=== PATIENT | female | born 1955 | race Caucasian/White ===

== ENCOUNTER 2022-01-03 22:58 | Emergency (ER) | payer MEDICARE, BC, OTHER, SELFPAY ==
[2022-01-03 22:59] VITALS: BP 165/85; PULSE 68; RESP 16; TEMP 35.6; O2SAT 94; BMI 35.1
--- NOTE | 2022-01-03 23:26 | EX.ED.UPPERE ---
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 Today has redness and swelling. Denies any fall. 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 She is never had cellulitis. 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 She denies any fever. She is on aspirin but no other blood thinners. She has had blood clots in her legs and her left arm before. She is also on daily Keflex for prophylaxis of recurrent UTIs. She only takes that there once a day. Prior similar symptoms: Yes Recent Illness/Hospitalization: No PFSH PFSH Home Medications Ca 600 mg-D3 800 unit-magnes 40 hj-oaaq-lse-zuly-boron chewable tablet (Caltrate 600-D Plus Minerals) 1 ea PO DAILY 04/18/14 [History Last Taken Unknown] aspirin 81 mg tablet,delayed release 325 mg PO DAILY@0800 04/18/14 [History Last Taken Unknown] atenolol 50 mg tablet 50 mg PO DAILY 04/18/14 [History Last Taken 01/02/16 07:15] lisinopril 5 mg tablet 5 mg PO DAILY 04/18/14 [History Last Taken 01/02/16 07:15] oxycodone 15 mg tablet,crush resistant,extended release 12 hr (OxyContin) 15 mg PO Q4H PRN Pain 04/18/14 [History Last Taken 01/02/16 07:15] simvastatin 20 mg tablet 20 mg PO QHS 04/18/14 [History Last Taken Unknown] venlafaxine 75 mg tablet 75 mg PO BID 04/18/14 [History Last Taken Unknown] Equate Sleep Aid 50 mg PO QHS PRN PRN Sleep 12/17/15 [History Last Taken Unknown] Morphine [Morphine Ir] 30 mg PO TID 12/17/15 [History Last Taken 01/02/16 07:15] cephalexin 250 mg capsule (Keflex) 250 mg PO DAILY 12/17/15 [History Last Taken Unknown] clonidine HCl 0.2 mg tablet 0.2 mg PO DAILY 12/17/15 [History Last Taken 01/02/16 07:15] cranberry extract 200 mg capsule 150 mg PO DAILY 12/17/15 [History Last Taken Unknown] krill eup-rq-1-uzg-odk-pkktkhadnzibk 300 mg-90 mg-24 mg-50 mg capsule (krill oil) 1 ea PO DAILY 12/17/15 [History Last Taken Unknown] multivitamin with folic acid 400 mcg tablet (Thera) 1 tab PO DAILY 12/17/15 [History Last Taken Unknown] pantoprazole 40 mg tablet,delayed release 40 mg PO DAILY 12/17/15 [History Last Taken 01/02/16 07:15] cephalexin 500 mg capsule 500 mg PO Q6 ##40 01/15/16 [Rx Last Taken Unknown] Allergy/AdvReac Type Severity Reaction Status Date / Time codeine Allergy Other Verified 01/15/16 16:39 lorazepam [From Ativan] Allergy Unknown Verified 01/15/16 16:39 amoxicillin [Amoxicillin] AdvReac Nausea Verified 01/15/16 16:39 etodolac [From Lodine] AdvReac Diarrhea Verified 01/15/16 16:39 fluticasone propionate AdvReac Other Verified 01/15/16 16:39 [From Flovent Diskus] lansoprazole [From Prevacid] AdvReac Unknown Verified 01/15/16 16:39 lubiprostone AdvReac Nausea Verified 01/15/16 16:39 misoprostol [From Cytotec] AdvReac Diarrhea Verified 01/15/16 16:39 nitrofurantoin AdvReac Nausea Verified 01/15/16 16:39 [From Macrobid] nitrofurantoin AdvReac Nausea Verified 01/15/16 16:39 macrocrystalline [From Macrobid] topiramate [From Topamax] AdvReac Nausea Verified 01/15/16 16:39 Social History Smoking Status: Never smoker ROS ROS ED ROS Narrative Lip swelling that resolved with 1 Benadryl. Left arm redness and swelling. Review of Systems ROS Unobtainable: Denies due to encephalopathy Constitutional Constitutional ED: Denies chills or fever(s) Eyes Eyes: Denies blurry vision ENT ENT ED: Denies ear pain Cardiovascular Cardiovascular: Denies chest pain Respiratory/Chest Respiratory/Chest: Denies cough or dyspnea Gastrointestinal Gastrointestinal: Denies abdominal pain Genitourinary Genitourinary ED: Denies dysuria or hematuria Musculoskeletal Musculoskeletal: Denies back pain Integumentary Denies abscess Neurologic Neurologic: Denies headache(s) Psychiatric Psychiatric: Denies anxiety Endocrine Endocrinology: Denies cold intolerance Hematologic/Lymphatic Hematologic/Lymphatic: Denies easy bleeding Allergic/Immunologic Allergic/Immunologic ED: Denies mouth swelling or tongue swelling EXAM Physical Exam Narrative Exam Narrative: Well-appearing 66-year-old female. Vital signs are stable afebrile. Pulse ox 94% on room air no signs hypoxia. H EENT exam normal. Lip and tongue not swollen. No trouble swallowing or breathing. Neck nontender. Lungs clear to auscultation. Heart regular rhythm rate about 70 no murmur. Abdomen soft nontender. Moving all 4 extremities. Her left arm along the bicep is red mildly tender like a cellulitis. She has normal range of motion to her left shoulder she has had prior anterior left shoulder surgery with a well-healed scar. There is no edema. No lymphadenopathy of the shoulder. She is able to flex and extend her left elbow. There is no signs of any biceps tendon rupture. Her forearm is normal. Nontender. Nonswollen. Normal pulse. 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 Her left upper arm is swollen compared to the right and red compared to the right. Right is normal. Exam is consistent with either cellulitis or DVT. I explained to the patient and family that ultrasounds not available at this time for this. Const Vital Signs: 01/03/22 22:59 01/03/22 22:59 Temperature 96.0 F L 96.0 F L Temperature Source Temporal Temporal Pulse Rate 68 68 Respiratory Rate 16 16 Blood Pressure 165/85 H 165/85 H Blood Pressure Mean 111 111 Pulse Ox 94 94 Oxygen Delivery Method Room Air Room Air Positive well nourished, well developed and obese; Negative for cachectic, contractures or unkempt General Appearance ED: well developed and NAD; Negative for unkempt, cachectic, contractures, cyanotic or diaphoretic Nutritional Appearance: obese; Negative for cachectic HEENT Reports moist mucous membranes normocephalic and atraumatic; Negative for trauma or tenderness Eyes PERRL and EOMs intact bilaterally General Eye ED: Negative for other Neck full ROM and supple General: Negative for tenderness Lymph Lymphatic: Negative for other Chest Wall inspection of chest normal and palpation of chest normal Chest: Negative for other Resp normal respiratory effort and clear to auscultation bilaterally Effort and Inspection: Negative for pain with movement Auscultation: Negative for rales, rhonchi or wheezes Cardio regular rate, regular rhythm, S1 normal heart sound, S2 normal heart sound and no murmurs Rate: Negative for bradycardia Rhythm: Negative for abnormal rhythm GI non-tender, non-distended and no masses Inspection: Negative for abdominal distention Auscultation: normoactive bowel sounds Palpation: soft; Negative for tender or guarding Back/Spine no CVA tenderness General Back: Negative for CVA tenderness Cervical Spine: Negative for cervical spine tenderness Thoracic Spine / Upper Back: Negative for thoracic spinal tenderness Lumbar Spine / Lower Back: Negative for lumbar spinal tenderness or straight leg raise positive - left Extremity full ROM; Negative for normal to inspection Extremity Narrative: Left upper arm mildly red. Minimally tender on the skin. Consistent with cellulitis. Edematous on the upper arm only. Forearm is normal. With normal radial pulse. Normal briquette machine operator helper strength. Normal range of motion of the shoulder. General Extremety ED: Yes edema General Extremity: edema Neuro oriented x3, moves all extremities and no focal motor deficits Sensorium / Orientation: alert, oriented to person, oriented to place and oriented to time; Negative for orientation impaired, lethargic or stuporous Motor Exam: strength 5/5 throughout and muscle tone normal throughout; Negative for general weakness Psych mental status grossly normal Appearance: Negative for unkempt Attitude: No agitated Mood & Affect: Negative for depressed, anxious or tearful Skin General Skin Exam: Negative for petechiae Lesions: no lesions Rashes: No no rashes and rashes noted MDM MDM MDM Narrative Medical decision making narrative: 66-year-old female has redness and swelling in her left upper arm consistent with cellulitis but she is also had a history of DVTs before and it could be that. She is already on Keflex once a day for recurrent UTIs that will be started as 4 times a day. I will order an outpatient noninvasive study of her left upper extremity for tomorrow morning because the not available at this time. She will return and have the noninvasive study done tomorrow morning. If it is a DVT we will stop the antibiotic and she will be started on Eliquis which I gave her first dose tonight 10 mg p.o. If its not a DVT she will continue on the Keflex 4 times a day for 10 days which she already has at home and follow-up with her doctor. Discharge Plan Triage Chief Complaint: Upper Extremity Injury ED Provider: Cristóbal Joel Dx/Rx/DC Orders Clinical Impression: Cellulitis, DVT (deep venous thrombosis) Instructions: Cellulitis Dc, ED Deep Vein Thrombosis (DVT) Prescriptions: No Action venlafaxine 75 MG tablet 75 mg PO BID aspirin 81 MG tablet 325 mg PO DAILY@0800 simvastatin 20 MG tablet 20 mg PO QHS lisinopril 5 MG tablet 5 mg PO DAILY atenolol 50 MG tablet 50 mg PO DAILY [id number]-fhji-zhm-tpje-boron [Caltrate 600-D Plus Minerals] 1 EACH tablet,chewable 1 ea PO DAILY oxycodone [OxyContin] 15 MG tablet 15 mg PO Q4H PRN (Reason: Pain) cephalexin [Keflex] 250 MG capsule 250 mg PO DAILY clonidine HCl 0.2 MG tablet 0.2 mg PO DAILY pantoprazole 40 MG tablet 40 mg PO DAILY cranberry extract 200 MG capsule 150 mg PO DAILY multivitamin with folic acid [Thera] 1 TABLET tablet 1 tab PO DAILY [id number]-qrang-1-gdn-szx-yfaowm [krill oil] 1 EACH capsule 1 ea PO DAILY Equate Sleep Aid 50 mg PO QHS PRN PRN (Reason: Sleep) Morphine [Morphine Ir] 30 MG tablet 30 mg PO TID cephalexin 500 MG capsule 500 mg PO Q6 Qty: 40 0RF Other Ambulatory Orders: Venous Duplex US, Unilateral (Stat) Facility: [facility] - Location: [facility] Ordered By: Dr. Cristóbal Joel Primary Care Provider: Smiley Collins Referrals: Smiley Collins MD [Primary Care Provider] - 3-5 Days if not improving Activity Restrictions/Additional Instructions: This is either cellulitis skin infection of your arm which we will treat with your home antibiotic Keflex but you need to take it 4 times a day for 10 days. I have ordered an outpatient ultrasound which will be done tomorrow. If they do not call you by 9:30 in the morning call the emergency department and they will connect you with the vascular lab to make sure he gets done tomorrow. If this turns out to be a blood clot you can go back to your normal once a day dose of the Keflex and we will not treat this as an infection. However you will need to be started on Eliquis. We gave you a dose of Eliquis tonight. Disposition Disposition: Home, Self Care
[2022-01-03] MEDS: APIXABAN 5 MG TABLET 10 MG PO (23:46)
== END 2022-01-03 23:51 | disposition home or self-care (01) ==
LOC: ED 23:40
PROVIDERS: Emergency Provider Emergency Medicine; PCP Internal Medicine; Visit Provider Emergency Medicine
DX: L03.114 Cellulitis of left upper limb (principal); I82.622 Acute embolism and thrombosis of deep veins of left upper extremity; E66.9 Obesity, unspecified
CPT/HCPCS: 99282

== ENCOUNTER → 2022-01-04 | Outpatient (CLI) | payer MEDICARE, BC, OTHER, SELFPAY ==
--- NOTE | 2022-01-04 10:31 | VDUE_ITS ---
Reason For Study: Swelling Left Proximal Left jugular vein is spontaneous, widely patent, phasic, with no intraluminal echogenicity noted. Left subclavian vein is spontaneous, widely patent, phasic, with no intraluminal echogenicity noted. Left Arm Left axillary vein is spontaneous, patent, phasic, competent, compressible and demonstrates augmentation. Left brachial vein is compressible. Left cephalic vein is compressible. Left basilic vein is compressible. Left Lower Arm Left radial vein is compressible. Left ulnar vein is compressible. Patient Safety Preliminary report sent to PCP: Karina. Patient seen in ED 01/03/2022, done as next day ED exam. VL/Venous Duplex US, Unilateral Interpretation Summary No evidence for acute deep venous thrombosis[left] upper extremity with patent and compressible cephalic and basilic veins. Ordering Physician: Cristóbal Joel Referring Physician: Smiley Collins M.D. Performed By: Светлана Varner RVT ???
== END | disposition home or self-care (01) ==
LOC: CVS 10:31
PROVIDERS: PCP Internal Medicine; Visit Provider Emergency Medicine
DX: M79.89 Other specified soft tissue disorders (principal)
CPT/HCPCS: 93971

== ENCOUNTER → 2022-03-10 | Outpatient (CLI) | payer MEDICARE, BC, OTHER, SELFPAY ==
--- NOTE | 2022-03-10 12:50 | MRI_ITS ---
EXAM: MR LEFT UPPER EXTREMITY WITHOUT INTRAVENOUS CONTRAST, SHOULDER CLINICAL INDICATION: LEFT SHOULDER PAIN, BICEP BURSITIS,TENDONITIS TECHNIQUE: Multiplanar and multisequence MR images of the left shoulder without intravenous contrast. This report was created using [employer] report [employer]iste[employer] technology. COMPARISON: None. FINDINGS: TENDONS: SUPRASPINATUS: Severe atrophy of the supraspinatus tendon indicates a chronic full-thickness supraspinatus tendon tear. There is also significant atrophy of the infraspinous tendon and subscapularis tendon raising concern for chronic full-thickness infraspinatus tendon and subscapularis tendon tearing. INFRASPINATUS: See above. SUBSCAPULARIS: See above. TERES MINOR: Unremarkable. Intact. BICEPS BRACHII, LONG HEAD: Long head of the biceps tendon is not visualized due to susceptibility artifact. The extra-articular biceps tendon is in the bicipital groove. LIGAMENTS: GLENOHUMERAL: Unremarkable. Intact. MUSCLES: Unremarkable. No rotator cuff muscle atrophy. FLUID: There appears to be a large fluid collection in the area of the subacromial/subdeltoid bursa which is probably related to chronic rotator cuff tearing. No joint effusion. CARTILAGE: Unremarkable. Articular cartilage intact. GLENOID LABRUM: The labral structures are not visualized due to extensive susceptibility artifact. BONES/JOINTS: There is fluid in the acromioclavicular joint with moderate hypertrophic degenerative changes identified. Type II acromion with curved undersurface. No subacromial enthesophyte or os acromiale. No fracture. No abnormal bone marrow signal. OTHER SOFT TISSUES: Extensive susceptibility artifact limiting assessment adjacent soft tissues. MRI/Upper Ext Joint Only(Routine) IMPRESSION: 1. Very limited study due to extensive susceptibility artifact from hardware involving the glenohumeral joint. 2. Suspect chronic rotator cuff tears involving the supraspinous, infraspinatus, and subscapularis tendons as there is significant associated muscle atrophy. 3. Large fluid collection in the area of the subacromial/subdeltoid bursa is probably related to full-thickness rotator cuff tearing. Electronically Signed: Asad Amador MD at 2:43 EDT ,
== END | disposition home or self-care (01) ==
LOC: MRI 12:36
PROVIDERS: PCP Internal Medicine; Referring Provider Specialist; Visit Provider Specialist
DX: M79.602 Pain in left arm (principal); Z96.612 Presence of left artificial shoulder joint
CPT/HCPCS: 73221

== ENCOUNTER 2024-02-07 17:42 | Emergency (ER) | payer MEDICARE, BC, OTHER, SELFPAY ==
[2024-02-07 17:43] VITALS: BP 101/71; PULSE 82; RESP 18; TEMP 36.3; O2SAT 99; BMI 34.3
[2024-02-07 17:59] VITALS: BP 102/66; BP 109/46; BP 115/79; PULSE 76
--- NOTE | 2024-02-07 17:59 | EKG12_ITS ---
Test Reason : Blood Pressure : / mmHG Vent. Rate : 072 BPM Atrial Rate : 072 BPM P-R Int : 140 ms QRS Dur : 086 ms QT Int : 376 ms P-R-T Axes : -09 057 048 degrees QTc Int : 411 ms Normal sinus rhythm Normal ECG Confirmed by TYE GUNTER MD ([id number]), electronic news gathering editor CARLO BLOOD ([id number]) on 02/09/2024 6:31:45 AM Referred By: Confirmed By:TYE GUNTER MD
--- NOTE | 2024-02-07 18:00 | EX.ED.DYSGE1 ---
HPI History of Present Illness Chief Complaint: Weakness Narrative Narrative: 68-year-old female past medical history of hypertension, takes carvedilol twice a day and lisinopril once a day presents with lightheadedness, low blood pressure, and left posterior shoulder pain that she experienced today. She took her morning medications, she states she has been cleaning recently and using her left arm a lot. She felt lightheaded and took her blood pressure and noticed that it was in the 80s. She was sent in by the nurse hotline because of the lightheadedness and hypotension. Of note, she relates history that 2 weeks ago she had the flu and for 3 days had multiple episodes of nausea, vomiting, and diarrhea which is resolved. She denies any recent dysuria or hematuria, no fevers or chills, no cough. She has pain in her left posterior left shoulder when she moves her arm. PFSH [facility] Home Medications ?Medication ?Instructions ?Recorded ?Last Taken ?Type aspirin 81 mg tablet,delayed 325 mg PO DAILY@0800 04/18/14 Unknown History release atenolol 50 mg tablet 50 mg PO DAILY 04/18/14 01/02/16 07:15 History calcium 600 mg-D3 800 unit-mag 40 1 ea PO DAILY 04/18/14 Unknown History qz-nhxs-gtmt-zuly-boron chew tablet (Caltrate 600-D Plus Minerals) lisinopril 5 mg tablet 5 mg PO DAILY 04/18/14 01/02/16 07:15 History oxycodone 15 mg tablet,crush 15 mg PO Q4H PRN Pain 04/18/14 01/02/16 07:15 History resistant,extended release 12 hr (OxyContin) simvastatin 20 mg tablet 20 mg PO QHS 04/18/14 Unknown History venlafaxine 75 mg tablet 75 mg PO BID 04/18/14 Unknown History Equate Sleep Aid 50 mg PO QHS PRN PRN Sleep 12/17/15 Unknown History Morphine [Morphine Ir] 30 mg PO TID 12/17/15 01/02/16 07:15 History cephalexin 250 mg capsule (Keflex) 250 mg PO DAILY 12/17/15 Unknown History clonidine HCl 0.2 mg tablet 0.2 mg PO DAILY 12/17/15 01/02/16 07:15 History cranberry extract 200 mg capsule 150 mg PO DAILY 12/17/15 Unknown History krill 1 ea PO DAILY 12/17/15 Unknown History gpc-fq-1-rcr-dld-hloxtovsasxmf 300 mg-90 mg-24 mg-50 mg capsule (krill oil) multivitamin with folic acid 400 1 tab PO DAILY 12/17/15 Unknown History mcg tablet (Thera) pantoprazole 40 mg tablet,delayed 40 mg PO DAILY 12/17/15 01/02/16 07:15 History release cephalexin 500 mg capsule 500 mg PO Q6 ##40 01/15/16 Unknown Rx cephalexin 500 mg capsule 500 mg PO Q6 7 days #28 CAPSULES 02/07/24 Unknown Rx Allergy/AdvReac Type Severity Reaction Status Date / Time codeine Allergy Other Verified 02/07/24 18:16 lorazepam (From Ativan) Allergy Unknown Verified 02/07/24 18:16 amoxicillin (Amoxicillin) AdvReac Nausea Verified 02/07/24 18:16 etodolac (From Lodine) AdvReac Diarrhea Verified 02/07/24 18:16 fluticasone propionate (From AdvReac Other Verified 02/07/24 18:16 Flovent Diskus) lansoprazole (From Prevacid) AdvReac Unknown Verified 02/07/24 18:16 lubiprostone AdvReac Nausea Verified 02/07/24 18:16 misoprostol (From Cytotec) AdvReac Diarrhea Verified 02/07/24 18:16 nitrofurantoin (From AdvReac Nausea Verified 02/07/24 18:16 Macrobid) nitrofurantoin AdvReac Nausea Verified 02/07/24 18:16 macrocrystalline (From Macrobid) topiramate (From Topamax) AdvReac Nausea Verified 02/07/24 18:16 Social History Smoking Status: Never smoker ROS ROS ED ROS Narrative Constitutional: No fever, no chills. HEENT: No sore throat. No neck pain. No loss of vision. No rhinorrhea. Cardiovascular: No chest pain. No palpitations. No pedal edema. Respiratory: No cough, no shortness of breath. Abdominal: No abdominal pain. No nausea. No vomiting. Genitourinary: No dysuria. No hematuria. Musculoskeletal: No myalgias. Left posterior shoulder pain. Neurologic: No headaches. No dizziness. Positive lightheadedness. Skin: No rash. No change in color. Psychiatric: No depression. No anxiety. EXAM Physical Exam Narrative Exam Narrative: Afebrile. Vital signs noted. HEENT: Normocephalic. Atraumatic. PERRL, EOMI. Neck soft and supple. No point tenderness or step off. Cardiovascular: Regular rate and rhythm. No murmurs, rubs, or gallops appreciated. Respiratory: No tachypnea. Lungs clear to auscultation bilaterally. Gastrointestinal: Abdomen soft, nontender, with normoactive bowel sounds. No rebound or guarding. Neurological: Awake. Alert. Nonfocal, nonlateralizing. Skin: No rash. Normal color. No pallor. Musculoskeletal: No pedal edema. Full range of motion extremities. Positive left posterior shoulder pain along chest wall/trapezius. No crepitance. Full range of motion left shoulder. Const Vital Signs: 02/07/24 17:43 02/07/24 17:59 02/07/24 18:14 Temperature 97.3 F L Temperature Source Temporal Pulse Rate 82 Pulse Rate [Standing (for 1 minute prior to obtaining)] 76 Respiratory Rate 18 Respiratory Effort Normal Respiratory Pattern Normal Blood Pressure 101/71 Blood Pressure [Lying] 109/46 L Blood Pressure [Sitting (for 1 minute prior to obtaining)] 115/79 Blood Pressure [Standing (for 1 minute prior to obtaining)] 102/66 Blood Pressure Mean 81 Blood Pressure Mean [Lying] 67 Blood Pressure Mean [Sitting (for 1 minute prior to obtaining)] 91 Blood Pressure Mean [Standing (for 1 minute prior to obtaining)] 78 Pulse Ox 99 Oxygen Delivery Method Room Air 02/07/24 20:01 Temperature Temperature Source Pulse Rate 70 Pulse Rate [Standing (for 1 minute prior to obtaining)] Respiratory Rate 19 H Respiratory Effort Respiratory Pattern Blood Pressure 102/83 H Blood Pressure [Lying] Blood Pressure [Sitting (for 1 minute prior to obtaining)] Blood Pressure [Standing (for 1 minute prior to obtaining)] Blood Pressure Mean 89 Blood Pressure Mean [Lying] Blood Pressure Mean [Sitting (for 1 minute prior to obtaining)] Blood Pressure Mean [Standing (for 1 minute prior to obtaining)] Pulse Ox Oxygen Delivery Method MDM MDM MDM Narrative Medical decision making narrative: Differential diagnosis includes but not limited to intravascular volume depletion from previous nausea vomiting and diarrhea versus dehydration. Post influenza pneumonia is also in the differential, but less likely as she is not having any upper respiratory infection type symptoms. Feel she probably has more musculoskeletal pain as it is very reproducible. Current blood pressure is 101/71. Orthostatics will be obtained and she will be bolused normal saline. CBC, CMP, troponin, and urinalysis will also be checked. Chest x-ray will be obtained to rule out pneumonia versus pneumothorax. Once again, history and physical does not support the latter 2 diagnoses. EKG was obtained and interpreted by myself independently as normal sinus rhythm at 72 bpm without ectopy or acute ST changes. No STEMI. I reviewed her laboratory work and she has normal white count of 10.1 with hemoglobin normal at 13.0, platelet count normal at 316. Electrolyte panel is significant for BUN of 22 and a creatinine of 1.64 which is consistent with acute kidney injury. She was bolused 1 L of normal saline and feels improved but was started on a second liter. I do not feel she requires admission at this time. Her high-sensitivity troponin is 7. Chest x-ray interpreted by myself independently shows no pneumothorax or pneumonia. I reviewed the radiology report which confirms my independent interpretation. She was able to produce a urine sample after a liter and a half of IV fluids, and she has greater than 100 WBCs but there are squamous epithelial cells. Although she is not having dysuria, she states she is prone to urinary tract infections and she takes cephalexin 250 mg for prophylaxis. She states when she gets a urinary tract infection they increase her dose to 504 times a day. I wrote her prescription for 7 days of cephalexin 500 mg and gave her her first dose here in the emergency department. Urine culture was also sent. At this point in time, she is motivated for discharge and feels improved. I feel she can be discharged safely home with follow-up. Return instructions to the emergency department were reviewed. Disposition is discharged home in stable condition. History & Record Review Discussion w/independent historian: Patient Lab Data Attestation: I reviewed the patient's lab results. Labs: Laboratory Results - last 24 hr 02/07/24 02/07/24 18:21 19:23 WBC 10.1 RBC 4.42 Hgb 13.0 Hct 41.1 MCV 93.0 MCH 29.4 MCHC 31.6 L RDW Std Deviation 42.1 RDW Coeff of Radu 12.2 Plt Count 316 MPV 9.7 Immature Gran % (Auto) 0.500 Neut % (Auto) 63.4 Lymph % (Auto) 25.9 [place] % (Auto) 6.3 Eos % (Auto) 3.2 Baso % (Auto) 0.7 Absolute Neuts (auto) 6.4 Absolute Lymphs (auto) 2.61 Nucleated RBC % 0 Sodium 138 Potassium 4.3 Chloride 103 Carbon Dioxide 31.0 Anion Gap 4 L BUN 22 H Creatinine 1.64 H Estim Creat Clear Calc 32.31 Est GFR (MDRD) Af Amer 40 L Est GFR (MDRD) Non-Af 33 L BUN/Creatinine Ratio 13.4 Glucose 133 H Calcium 9.1 Total Bilirubin 0.70 AST 12 L ALT 13 Alkaline Phosphatase 81 Troponin I High Sens 7 Total Protein 7.0 Albumin 3.3 Globulin 3.7 Albumin/Globulin Ratio 0.9 Urine Color Yellow Urine Clarity Cloudy Urine pH 6.0 Ur Specific [place] 1.015 Urine Protein 30 H Urine Glucose (UA) Normal Urine Ketones Negative Urine Occult Blood 10 H Urine Nitrite Negative Urine Bilirubin Negative Urine Urobilinogen Normal Ur Leukocyte Esterase 500 H Urine RBC 0 SEEN Urine WBC >100 SEEN Ur Squamous Epith Cells 25-50 SEEN Urine Bacteria 3+ Urine Mucus 0 SEEN Urine Yeast 1+ Radiography Chest X-Ray - ED: 1 View, Read by ED Physician, Read by Radiologist and Normal Diagnostic Testing: Clinical Impression(s) from Imaging Studies Chest X-Ray 02/07/24 18:20 IMPRESSION: No active disease. Electronically Signed: Antony Jaeger MD at 19:21 EDT , Discharge Plan Triage Chief Complaint: Weakness ED Provider: Dheeraj Bloom Dx/Rx/DC Orders Clinical Impression: Lightheadedness, Acute kidney injury, Dehydration, Left shoulder strain, UTI (urinary tract infection) Instructions: ED Dehydration (Adult), ED Near-Fainting, Uncertain Cause Prescriptions: New cephalexin 500 mg capsule 500 mg PO Q6 7 Days Qty: 28 0RF No Action venlafaxine 75 MG tablet 75 mg PO BID aspirin 81 MG tablet 325 mg PO DAILY@0800 simvastatin 20 MG tablet 20 mg PO QHS lisinopril 5 MG tablet 5 mg PO DAILY atenolol 50 MG tablet 50 mg PO DAILY Lc-B3-wkg-hwli-lrq-ejga-boron [Caltrate 600-D Plus Minerals] 1 EACH tablet,chewable 1 ea PO DAILY oxycodone [OxyContin] 15 MG tablet 15 mg PO Q4H PRN (Reason: Pain) cephalexin [Keflex] 250 MG capsule 250 mg PO DAILY clonidine HCl 0.2 MG tablet 0.2 mg PO DAILY pantoprazole 40 MG tablet 40 mg PO DAILY cranberry extract 200 MG capsule 150 mg PO DAILY multivitamin with folic acid [Thera] 1 TABLET tablet 1 tab PO DAILY rocmg-ujkac-1-axo-qfl-zqzatq [krill oil] 1 EACH capsule 1 ea PO DAILY Equate Sleep Aid 50 mg PO QHS PRN PRN (Reason: Sleep) Morphine [Morphine Ir] 30 MG tablet 30 mg PO TID cephalexin 500 MG capsule 500 mg PO Q6 Qty: 40 0RF Primary Care Provider: Smiley Collins Referrals: Smiley Collins MD [Primary Care Provider] - 3-5 Days if not improving Activity Restrictions/Additional Instructions: Take gqbu-jtv-yxvrhvv medications as needed for pain. Continue to drink perennial fluids. You may need to have your kidney function rechecked in the next week or next 2 weeks. Return with new or worsening symptoms. Print Language: Nepali Disposition Disposition: Home, Self Care
[2024-02-07] MEDS: 0.9% Normal Saline (1000mL) 1,000 ML 1000 ML IV (18:12)
--- NOTE | 2024-02-07 18:20 | RAD_ITS ---
STUDY: X-RAY CHEST REASON FOR EXAM: Female, 68 years old. Chest pain TECHNIQUE: Single AP portable view of the chest. COMPARISON: 01/02/2016 FINDINGS: The lungs are clear and expanded. Elevated right hemidiaphragm. Normal size heart. Normal mediastinum and dougie. Normal visualized pulmonary arteries. Normal visualized aortic arch and descending thoracic aorta. Normal visualized thoracic spine. Status post bilateral shoulder reverse arthroplasty. There is no demonstrated abnormality of the visualized soft tissue structures of the upper abdomen. RAD/Chest 1 View (Portable) IMPRESSION: No active disease. Electronically Signed: Antony Jaeger MD at 19:21 EDT ,
[2024-02-07 18:27] LABS: Absolute Lymphocyte Count 2.61 X10^3/uL (0.83-4.51); Absolute Neutrophil Count 6.4 X10^3/uL (2.0-7.7); Basophil# 0.07 X10^3/uL; Basophil% 0.7 % (0-1); Eosinophil# 0.32 X10^3/uL; Eosinophils% 3.2 % (0-5); Hematocrit 41.1 % (37-47); Lymphocyte # 2.61 X10^3/ul (0.83-4.51); Lymphocyte % 25.9 % (19-41); Mean Corp Hgb Conc 31.6 g/dL (32-36); Mean Corpuscular Hgb 29.4 pg (27.0-32.0); Mean Platelet Vol. 9.7 fl (6.2-12.0); Monocyte# 0.64 X10^3/uL; Monocyte% 6.3 % (0-10); NRBC Flagged by Analyzer 0 % (0-5); Neutrophil # 6.39 X10^3/uL (2.7-7.7); Neutrophil % 63.4 % (47-70); Platelet Count 316 K/mm3 (150-450); RBC Distribution Width CV 12.2 % (11.6-14.6); RBC Distribution Width SD 42.1 fl (35.1-43.9); Red Blood Count 4.42 M/mm3 (4.2-5.4); White Blood Count 10.1 K/mm3 (4.4-11.0)
[2024-02-07 18:44] LABS: ALB/GLOB Ratio 0.9 RATIO (0.9-2.4); AST(SGOT) 12 U/L (15-37); Alanine Aminotransfer ALT/SGPT 13 U/L (13-56); Albumin, Serum 3.3 g/dL (3.2-5.0); Alkaline Phosphatase 81 U/L (45-117); Anion Gap 4 (5-15); BUN 22 mg/dL (7-18); BUN/Creat Ratio 13.4 RATIO (10-20); Calcium,Total 9.1 mg/dL (8.5-10.1); Chloride 103 mmol/L (98-107); Creatinine, Serum 1.64 mg/dL (0.55-1.02); EST Glomerular Filtration Rate 33 mL/min (>60); Est Glom Filt Rate - Afr Amer 40 mL/min (>60); Estimated Creatinine Clearance 32.31 ml/min; Globulin 3.7 g/dL (2.2-4.2); Glucose 133 mg/dL (74-106); Potassium 4.3 mmol/L (3.5-5.1); Sodium Level 138 mmol/L (136-145); Troponin-I HS 7 pg/mL (3.0-54.0)
[2024-02-07] MEDS: 0.9% Normal Saline (1000mL) 1,000 ML 999 ML IV (19:05)
[2024-02-07 19:29] LABS: Mucous, Urine 0 SEEN /hpf (<or=2+); Red Blood Cells-Urine 0 SEEN /hpf (0-5)
[2024-02-07 19:30] LABS: Color, Urine Yellow (Yellow); Glucose, Dipstick Normal (Normal); Ketone-Dipstick Negative (Negative); Leukocyte Esterase-Dipstick 500 /ul (Negative); Nitrite-Dipstick Negative (Negative); Occult Blood-Urine 10 /ul (Negative); Protein-Dipstick 30 mg/dl (Negative); Specific Gravity, Urine 1.015 (1.002-1.030); Urine Bilirubin Dipstick Negative (Negative); Urine Clarity Cloudy (Clear); Urine Urobilinogen Normal (Normal)
[2024-02-07 19:52] LABS: Bacteria 3+ /hpf (None Seen); White Blood Cells >100 SEEN /hpf (0-5); Yeast-Urine 1+ /hpf (None Seen)
[2024-02-07 19:53] LABS: Squamous Epithelial Cells - UA 25-50 SEEN /hpf (5-10)
[2024-02-07 20:01] VITALS: BP 102/83; PULSE 70; RESP 19
[2024-02-07] MEDS: Cephalexin 250 MG Capsule 500 MG PO (21:09)
[2024-02-07 21:12] VITALS: BP 121/67; PULSE 69; RESP 18; TEMP 36.6; O2SAT 95
== END 2024-02-07 21:13 | disposition home or self-care (01) ==
PROVIDERS: Emergency Provider Emergency Medicine; PCP Internal Medicine; Visit Provider Emergency Medicine
DX: R42 Dizziness and giddiness (principal); I10 Essential (primary) hypertension; S46.912A Strain of unspecified muscle, fascia and tendon at shoulder and upper arm level, left arm, initial encounter; X58.XXXA Exposure to other specified factors, initial encounter; E86.0 Dehydration; N39.0 Urinary tract infection, site not specified; N17.9 Acute kidney failure, unspecified; Z88.1 Allergy status to other antibiotic agents; Z88.0 Allergy status to penicillin; Z79.82 Long term (current) use of aspirin; Z87.440 Personal history of urinary (tract) infections; Z79.899 Other long term (current) drug therapy
CPT/HCPCS: 71045; 80053; 81001; 84484; 85025; 87086; 87088; 93005; 96360; 96361; 99285; J7030; A4216

== ENCOUNTER 2024-02-13 19:58 | Emergency (ER) | payer MEDICARE, BC, OTHER, SELFPAY ==
[2024-02-13 19:59] VITALS: BP 127/83; PULSE 67; RESP 15; TEMP 35.8; O2SAT 98; BMI 35.6
--- NOTE | 2024-02-13 20:08 | EX.ED.DYSGE1 ---
HPI History of Present Illness Chief Complaint: Edema [facility] Medical History (Updated 02/13/24 @ 20:19 by Se Wesley) Diabetes type 2, controlled Arthritis Hypertension Home Medications ?Medication ?Instructions ?Recorded ?Last Taken ?Type aspirin 81 mg tablet,delayed 325 mg PO DAILY@0800 04/18/14 Unknown History release atenolol 50 mg tablet 50 mg PO DAILY 04/18/14 01/02/16 07:15 History calcium 600 mg-D3 800 unit-mag 40 1 ea PO DAILY 04/18/14 Unknown History xi-vyyu-spre-zuly-boron chew tablet (Caltrate 600-D Plus Minerals) lisinopril 5 mg tablet 5 mg PO DAILY 04/18/14 01/02/16 07:15 History oxycodone 15 mg tablet,crush 15 mg PO Q4H PRN Pain 04/18/14 01/02/16 07:15 History resistant,extended release 12 hr (OxyContin) simvastatin 20 mg tablet 20 mg PO QHS 04/18/14 Unknown History venlafaxine 75 mg tablet 75 mg PO BID 04/18/14 Unknown History Equate Sleep Aid 50 mg PO QHS PRN PRN Sleep 12/17/15 Unknown History Morphine [Morphine Ir] 30 mg PO TID 12/17/15 01/02/16 07:15 History cephalexin 250 mg capsule (Keflex) 250 mg PO DAILY 12/17/15 Unknown History clonidine HCl 0.2 mg tablet 0.2 mg PO DAILY 12/17/15 01/02/16 07:15 History cranberry extract 200 mg capsule 150 mg PO DAILY 12/17/15 Unknown History krill 1 ea PO DAILY 12/17/15 Unknown History kdj-gr-1-hjt-nvz-gmujimypgavwc 300 mg-90 mg-24 mg-50 mg capsule (krill oil) multivitamin with folic acid 400 1 tab PO DAILY 12/17/15 Unknown History mcg tablet (Thera) pantoprazole 40 mg tablet,delayed 40 mg PO DAILY 12/17/15 01/02/16 07:15 History release cephalexin 500 mg capsule 500 mg PO Q6 ##40 01/15/16 Unknown Rx cephalexin 500 mg capsule 500 mg PO Q6 7 days #28 CAPSULES 02/07/24 Unknown Rx Allergy/AdvReac Type Severity Reaction Status Date / Time codeine Allergy Other Verified 02/13/24 19:59 lorazepam (From Ativan) Allergy Unknown Verified 02/13/24 19:59 amoxicillin (Amoxicillin) AdvReac Nausea Verified 02/13/24 19:59 etodolac (From Lodine) AdvReac Diarrhea Verified 02/13/24 19:59 fluticasone propionate (From AdvReac Other Verified 02/13/24 19:59 Flovent Diskus) lansoprazole (From Prevacid) AdvReac Unknown Verified 02/13/24 19:59 lubiprostone AdvReac Nausea Verified 02/13/24 19:59 misoprostol (From Cytotec) AdvReac Diarrhea Verified 02/13/24 19:59 nitrofurantoin (From AdvReac Nausea Verified 02/13/24 19:59 Macrobid) nitrofurantoin AdvReac Nausea Verified 02/13/24 19:59 macrocrystalline (From Macrobid) topiramate (From Topamax) AdvReac Nausea Verified 02/13/24 19:59 Family History (Updated 02/13/24 @ 20:21 by Se Wesley) Grandmother Myocardial infarction Social History Smoking Status: Never smoker EXAM Physical Exam Const Vital Signs: 02/13/24 19:59 02/13/24 20:18 02/13/24 20:43 Temperature 96.5 F L 97.8 F Temperature Source Temporal Pulse Rate 67 65 Respiratory Rate 15 16 Respiratory Effort Normal Respiratory Pattern Normal Blood Pressure 127/83 H 137/72 H Blood Pressure Mean 97 93 Pulse Ox 98 99 Oxygen Delivery Method Room Air [facility] [place] Narrative Medical decision making narrative: HISTORY OF PRESENT ILLNESS: 68-year-old female presents concern for leg swelling. Notes she has a history of DVT. Notes 2 days of left leg swelling. No falls or trauma. Patient denies active cancer, being bedridden for greater than 3 days. Denies any varicose veins, Denies major surgery within 12 weeks, recent paralysis. REVIEW OF SYSTEMS: Pertinent positives: Leg swelling Pertinent negatives: Chest pain, shortness of breath, syncope PHYSICAL EXAM: Nursing triage notes reviewed, Vital signs reviewed Constitutional: please see mdm Lungs: Clear to auscultation, No wheezing or rales. No increased work of breathing, no conversational dyspnea, no accessory muscle use, no nasal flaring. No respiratory distress noted Heart: Regular rate and rhythm, No murmurs, No rubs and No gallops, 2+ distal pulses (radial, femoral, posterior tibial) in all extremities Extremities: Obvious edema noted to the left lower extremity Neuro: No focal neurological deficits, cranial nerves II through XII intact, 5/5 strength in all extremities. Intact sensation to light touch in all extremities, 2+ reflexes bilateral patella tendons. Normal gait. No ataxia. Skin: No rash or lesions noted MEDICAL DECISION MAKING: Chief Complaint: Leg swelling External records reviewed: Reviewed the patient's medications, medical problem list, allergies list Factors affecting care: history of DVT MDM Narrative: Patient is hemodynamically stable, afebrile, nontoxic-appearing. Left lower extremity with confluent edema, calf tenderness. Compartments are soft. Exam not consistent with infectious etiology as there is no warmth, no drainage. No focus of trauma to precipitate infection. I considered the following differential diagnosis: DVT, cellulitis, compartment syndrome History and physical exam most consistent with DVT however we do not have ultrasound available to definitively prove this. Will give a shot of Lovenox (1 mg/kg) and order an outpatient order to come back in tomorrow morning to get ultrasound done. Patient agreeable with plan. No signs of PE at this time The patient and/or family, caregivers express understanding. The patient and/or family, caregivers agrees with the plan. Shared decision making: I will have a discussion with the patient and or visitors regarding risk/benefits of further testing or admission. They will be made aware of of the risk/benefits inherent in this decision they will be given the opportunity to voice understanding. Total critical care time today provided was at least 0 minutes. This excludes separately billable procedures. Critical care time (if documented) is secondary to the patient having high probability of clinically significant/life threatening deterioration in the patient's condition which required my urgent intervention. Impression: 1. Unilateral leg show 2. History of DVT Dispo: Discharge This note was generated with [employer] dictation software. It may contain incorrect words, spelling, and punctuation that were not noted in review of the chart prior to signing. Discharge Plan Triage Chief Complaint: Edema ED Provider: Dima Augustine Dx/Rx/DC Orders Instructions: ED Deep Vein Thrombosis (DVT) Prescriptions: No Action venlafaxine 75 MG tablet 75 mg PO BID aspirin 81 MG tablet 325 mg PO DAILY@0800 simvastatin 20 MG tablet 20 mg PO QHS lisinopril 5 MG tablet 5 mg PO DAILY atenolol 50 MG tablet 50 mg PO DAILY Oq-A4-xed-mutw-afc-gjij-boron [Caltrate 600-D Plus Minerals] 1 EACH tablet,chewable 1 ea PO DAILY oxycodone [OxyContin] 15 MG tablet 15 mg PO Q4H PRN (Reason: Pain) cephalexin [Keflex] 250 MG capsule 250 mg PO DAILY clonidine HCl 0.2 MG tablet 0.2 mg PO DAILY pantoprazole 40 MG tablet 40 mg PO DAILY cranberry extract 200 MG capsule 150 mg PO DAILY multivitamin with folic acid [Thera] 1 TABLET tablet 1 tab PO DAILY lzgoe-mjikm-2-vno-cho-bgyvut [krill oil] 1 EACH capsule 1 ea PO DAILY Equate Sleep Aid 50 mg PO QHS PRN PRN (Reason: Sleep) Morphine [Morphine Ir] 30 MG tablet 30 mg PO TID cephalexin 500 MG capsule 500 mg PO Q6 Qty: 40 0RF cephalexin 500 mg capsule 500 mg PO Q6 7 Days Qty: 28 0RF Other Ambulatory Orders: Venous Duplex US, Unilateral (Stat) Facility: [facility] - Location: [facility] Ordered By: Dr. Dima Augustine Primary Care Provider: Smiley Collins Referrals: Smiley Collins MD [Primary Care Provider] - Activity Restrictions/Additional Instructions: Thank you for trusting us with your care today! An order has been placed to obtain outpatient venous ultrasound. Please call our vascular lab tomorrow at the number provided before coming in. Please take Tylenol (2 pills, 650 mg), ibuprofen (2 pills, 400 mg) every 6 hours as needed for pain and fever control. Please return to the emergency department if your symptoms change or worsen. Please follow with your primary care physician for further outpatient evaluation and management. Print Language: Persian Disposition Disposition: Home, Self Care Discharge Date/Time: 02/13/24 20:44
[2024-02-13] MEDS: Enoxaparin 100 MG/ML Syringe 90 MG SC (20:29)
[2024-02-13 20:43] VITALS: BP 137/72; PULSE 65; RESP 16; TEMP 36.6; O2SAT 99
== END 2024-02-13 20:44 | disposition home or self-care (01) ==
PROVIDERS: Emergency Provider Emergency Medicine; PCP Internal Medicine; Visit Provider Emergency Medicine
DX: R60.0 Localized edema (principal); E11.9 Type 2 diabetes mellitus without complications; Z86.718 Personal history of other venous thrombosis and embolism; I10 Essential (primary) hypertension; Z79.82 Long term (current) use of aspirin; Z79.899 Other long term (current) drug therapy
CPT/HCPCS: 96372; 99282

== ENCOUNTER 2024-02-14 10:49 | Emergency (ER) | payer MEDICARE, BC, OTHER, SELFPAY ==
[2024-02-14 10:50] VITALS: BP 154/68; PULSE 63; RESP 14; TEMP 36.8; O2SAT 95; BMI 33.6
--- NOTE | 2024-02-14 11:26 | EX.ED.DYSGE1 ---
HPI <MILA Baxter - Last Filed: 02/14/24 14:15> History of Present Illness Chief Complaint: Lower Extremity Injury Narrative Narrative: Patient presenting today after having a positive DVT study performed this morning. She reports that over the past 2 days she has had swelling to her left lower leg with pain behind her knee and to her left calf. She was seen yesterday evening in the ED and was given a shot of Lovenox, she was given an outpatient order for a DVT study which she had performed this morning which came back positive. 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 She denies any recent surgeries, travel, immobilization, chest pain, or shortness of breath. She has a PMH of prior DVT, HTN, DM, and arthritis. PFSH <MILA Baxter - Last Filed: 02/14/24 14:15> [facility] Medical History Diabetes type 2, controlled Arthritis Hypertension Home Medications ?Medication ?Instructions ?Recorded ?Last Taken ?Type aspirin 81 mg tablet,delayed 325 mg PO DAILY@0800 04/18/14 Unknown History release atenolol 50 mg tablet 50 mg PO DAILY 04/18/14 01/02/16 07:15 History calcium 600 mg-D3 800 unit-mag 40 1 ea PO DAILY 04/18/14 Unknown History yy-gvwb-rzwv-zuly-boron chew tablet (Caltrate 600-D Plus Minerals) lisinopril 5 mg tablet 5 mg PO DAILY 04/18/14 01/02/16 07:15 History oxycodone 15 mg tablet,crush 15 mg PO Q4H PRN Pain 04/18/14 01/02/16 07:15 History resistant,extended release 12 hr (OxyContin) simvastatin 20 mg tablet 20 mg PO QHS 04/18/14 Unknown History venlafaxine 75 mg tablet 75 mg PO BID 04/18/14 Unknown History Equate Sleep Aid 50 mg PO QHS PRN PRN Sleep 12/17/15 Unknown History Morphine [Morphine Ir] 30 mg PO TID 12/17/15 01/02/16 07:15 History cephalexin 250 mg capsule (Keflex) 250 mg PO DAILY 12/17/15 Unknown History clonidine HCl 0.2 mg tablet 0.2 mg PO DAILY 12/17/15 01/02/16 07:15 History cranberry extract 200 mg capsule 150 mg PO DAILY 12/17/15 Unknown History krill 1 ea PO DAILY 12/17/15 Unknown History ouv-nb-0-orw-gxy-aombeznodqydq 300 mg-90 mg-24 mg-50 mg capsule (krill oil) multivitamin with folic acid 400 1 tab PO DAILY 12/17/15 Unknown History mcg tablet (Thera) pantoprazole 40 mg tablet,delayed 40 mg PO DAILY 12/17/15 01/02/16 07:15 History release cephalexin 500 mg capsule 500 mg PO Q6 ##40 01/15/16 Unknown Rx cephalexin 500 mg capsule 500 mg PO Q6 7 days #28 CAPSULES 02/07/24 Unknown Rx apixaban 5 mg (74 tabs) tablets in 5 mg PO BID #74 tabs 02/14/24 Unknown Rx a dose pack (Eliquis DVT-PE Treat 30D Start) Allergy/AdvReac Type Severity Reaction Status Date / Time codeine Allergy Other Verified 02/14/24 10:50 lorazepam (From Ativan) Allergy Unknown Verified 02/14/24 10:50 amoxicillin (Amoxicillin) AdvReac Nausea Verified 02/14/24 10:50 etodolac (From Lodine) AdvReac Diarrhea Verified 02/14/24 10:50 fluticasone propionate (From AdvReac Other Verified 02/14/24 10:50 Flovent Diskus) lansoprazole (From Prevacid) AdvReac Unknown Verified 02/14/24 10:50 lubiprostone AdvReac Nausea Verified 02/14/24 10:50 misoprostol (From Cytotec) AdvReac Diarrhea Verified 02/14/24 10:50 nitrofurantoin (From AdvReac Nausea Verified 02/14/24 10:50 Macrobid) nitrofurantoin AdvReac Nausea Verified 02/14/24 10:50 macrocrystalline (From Macrobid) topiramate (From Topamax) AdvReac Nausea Verified 02/14/24 10:50 Family History Grandmother Myocardial infarction Social History Smoking Status: Former smoker ROS <MILA Baxter - Last Filed: 02/14/24 14:15> ROS ED Constitutional Constitutional ED: Denies chills or fever(s) Cardiovascular Cardiovascular: Denies chest pain Respiratory/Chest Respiratory/Chest: Denies dyspnea Gastrointestinal Gastrointestinal: Denies abdominal pain, nausea or vomiting Musculoskeletal Musculoskeletal: Reports myalgias Integumentary Denies rash Neurologic Neurologic: Denies paresthesias EXAM <MILA Baxter - Last Filed: 02/14/24 14:15> Physical Exam Const Vital Signs: 02/14/24 10:50 Temperature 98.3 F Temperature Source Temporal Pulse Rate 63 Respiratory Rate 14 Blood Pressure 154/68 H Blood Pressure Mean 96 Pulse Ox 95 Oxygen Delivery Method Room Air Positive well nourished, well developed and no apparent distress General Appearance ED: well developed HEENT Reports normocephalic and head/scalp atraumatic Mouth ED: Yes moist mucous membranes normal Eyes PERRL and EOMs intact bilaterally Neck full ROM and supple Chest Wall inspection of chest normal Resp normal respiratory effort and clear to auscultation bilaterally Cardio regular rate and regular rhythm GI soft to palpation, non-tender, non-distended and no masses Back/Spine normal ROM and normal to inspection Extremity normal to inspection and full ROM Extremity Narrative: Slight swelling of the left lower extremity in comparison to the right, pain to palpation to the left calf, left DP pulse 2+, good cap refill, sensation intact. Neuro oriented x3, CN's II-XII intact bilaterally, moves all extremities, no focal motor deficits and no sensory deficits noted Sensorium / Orientation: awake and alert Psych mental status grossly normal and thought process normal Skin no rashes or lesions noted and no wounds <Dr. Adonis Lozano DO - Last Filed: 02/14/24 11:46> Physical Exam Const Vital Signs: 02/14/24 10:50 Temperature 98.3 F Temperature Source Temporal Pulse Rate 63 Respiratory Rate 14 Blood Pressure 154/68 H Blood Pressure Mean 96 Pulse Ox 95 Oxygen Delivery Method Room Air MDM <MILA Baxter - Last Filed: 02/14/24 14:15> MDM MDM Narrative Medical decision making narrative: Patient presenting today after having a positive DVT study this morning. She does not have any symptoms of a PE. She has had 5 DVTs throughout her life and is not on any chronic anticoagulation. Her left lower extremity venous Doppler DVT study shows a DVT in the femoral vein, popliteal vein, T/P trunk, posterior tibial vein. She did recently have labs performed by her PCP which showed normal platelet count, normal kidney function, her labs were reviewed by the attending physician. She will be placed on a 30-day starter pack of eliquis with first dose here. She is familiar with this medication as her takes it, I did review risks of bleeding and discussed reasons to return to the ED especially for evaluation of any head injuries that occur. I encouraged that she follow-up with her PCP, she will be discharged home in stable condition. <Dr. Adonis Lozano, DO - Last Filed: 02/14/24 11:46> [facility] Treatment and Re-Evaluation :: I have personally performed a face to face assessment of the patient and have reviewed the ALEXANDREA Note. I performed a substantive portion of the visit including all aspects of the following. My combs findings include: History is 68-year-old female presenting to the emergency room with DVT of the left leg. Patient was seen in the emergency department last night given a shot of Lovenox and set up for ultrasound today. Ultrasound revealed clot in the left femoral vein inferiorly. Patient tells me this is her 6 DVT. Though she cannot distinguish in the past if she had DVT or superficial thrombophlebitis. She states at 1 point she was on Coumadin. Another point she took Lovenox for 1 week. This DVT based on the history of question provoked. She notes her children have not had DVT. She denies chest pain or shortness of breath. Patient had blood work at the end of December through primary care which she is able to pull up on her phone showing a normal creatinine transaminases and platelets. Exam is swollen and tender left lower extremity. Skin color otherwise appears normal. Medical Decison Making I reviewed the duplex ultrasound findings. Spoke with the patient regarding treatment and would recommend anticoagulant at this time. As she is familiar and comfortable with Eliquis as her takes this. I think this is a reasonable choice. I have asked that she follow-up with her primary care doctor within the next couple weeks. She understands return instructions. Discharge Plan Triage Chief Complaint: Lower Extremity Injury ED Midlevel Provider: Hoa Borrero ED Provider: Adonis Lozano Dx/Rx/DC Orders Clinical Impression: DVT (deep venous thrombosis), Acute leg pain Instructions: DVT Dc Prescriptions: Juanito Chriss DVT-PE Treat 30D Start 5 mg (74 tabs) tablets,dose pack 5 mg PO BID Qty: 74 0RF Rx Instructions: Take 10 mg (2 tabs) twice daily for 7 days, then take 5 mg (1 tab) twice daily for 23 days. No Action venlafaxine 75 MG tablet 75 mg PO BID aspirin 81 MG tablet 325 mg PO DAILY@0800 simvastatin 20 MG tablet 20 mg PO QHS lisinopril 5 MG tablet 5 mg PO DAILY atenolol 50 MG tablet 50 mg PO DAILY Px-S0-jpt-ouva-qul-aahv-boron [Caltrate 600-D Plus Minerals] 1 EACH tablet,chewable 1 ea PO DAILY oxycodone [OxyContin] 15 MG tablet 15 mg PO Q4H PRN (Reason: Pain) cephalexin [Keflex] 250 MG capsule 250 mg PO DAILY clonidine HCl 0.2 MG tablet 0.2 mg PO DAILY pantoprazole 40 MG tablet 40 mg PO DAILY cranberry extract 200 MG capsule 150 mg PO DAILY multivitamin with folic acid [Thera] 1 TABLET tablet 1 tab PO DAILY gnlxq-rsaku-6-yua-hcz-nrodrq [krill oil] 1 EACH capsule 1 ea PO DAILY Equate Sleep Aid 50 mg PO QHS PRN PRN (Reason: Sleep) Morphine [Morphine Ir] 30 MG tablet 30 mg PO TID cephalexin 500 MG capsule 500 mg PO Q6 Qty: 40 0RF cephalexin 500 mg capsule 500 mg PO Q6 7 Days Qty: 28 0RF Primary Care Provider: Smiley Collins Referrals: Smiley Collins MD [Primary Care Provider] - 3-5 Days Activity Restrictions/Additional Instructions: Please follow-up with your PCP, return for any other concerns. Print Language: Portuguese Disposition Disposition: Home, Self Care Discharge Date/Time: 02/14/24 12:04
[2024-02-14] MEDS: APIXABAN 5 MG TABLET 10 MG PO (12:04)
== END 2024-02-14 12:04 | disposition home or self-care (01) ==
LOC: ED 11:57
PROVIDERS: Emergency Provider Emergency Medicine; PCP Internal Medicine; Visit Provider Emergency Medicine
DX: I82.412 Acute embolism and thrombosis of left femoral vein (principal); I82.432 Acute embolism and thrombosis of left popliteal vein; I82.442 Acute embolism and thrombosis of left tibial vein; E11.9 Type 2 diabetes mellitus without complications; I10 Essential (primary) hypertension; M19.90 Unspecified osteoarthritis, unspecified site; Z88.1 Allergy status to other antibiotic agents; Z88.0 Allergy status to penicillin; Z88.8 Allergy status to other drugs, medicaments and biological substances; Z88.5 Allergy status to narcotic agent; Z79.82 Long term (current) use of aspirin; Z79.899 Other long term (current) drug therapy; Z86.718 Personal history of other venous thrombosis and embolism; Z87.891 Personal history of nicotine dependence
CPT/HCPCS: 93971; 99282

== ENCOUNTER → 2024-02-14 | Outpatient (CLI) | payer MEDICARE, BC, OTHER, SELFPAY ==
--- NOTE | 2024-02-14 10:10 | VDLE_ITS ---
Reason For Study: LLE SWELLIG RIGHT LEFT CFV is compressible, spontaneous, phasic, GSV is normal. competent and demonstrates normal CFV is compressible, spontaneous, phasic, augmentation. competent, and demonstrates normal Procedure augmentation. This is a venous duplex using B-mode, color Acute deep vein thrombosis is noted in the flow and spectral Doppler. FV. It is dilated and NONCOMPRESSIBLE. Exam performed in department. Acute deep vein thrombosis is noted in the A preliminary report was called and/or faxed POP V. It is dilated and NONCOMPRESSIBLE. to PT taken to ED for treatment/assessment. Acute deep vein thrombosis is noted in the T/P Trunk. It is dilated and NONCOMPRESSIBLE. Acute deep vein thrombosis is noted in the PTV. It is dilated and NONCOMPRESSIBLE. Acute deep vein thrombosis is noted in the Per V. It is dilated and NONCOMPRESSIBLE. VL/Venous Duplex US, Unilateral Interpretation Summary Acute deep vein thrombosis is noted in the left femoral vein. Acute deep vein t hrombosis is noted in the left popliteal vein. Acute deep vein thrombosis is noted in the left tibio- peroneal trunk. Acute deep vein thrombosis is noted in the left posterior tibial vein. Acute deep vei n thrombosis is noted in the left peroneal vein. The left common femoral vein is patent and competent . The left great saphenous vein appears patent and compressible segmentally. The right common fe moral vein is patent and compressible . Ordering Physician: Dima Augustine Referring Physician: Smiley Collins Performed By: Laurel Lao, KI, RVT
== END | disposition home or self-care (01) ==
LOC: US 09:55
PROVIDERS: PCP Internal Medicine; Visit Provider Emergency Medicine
DX: R22.42 Localized swelling, mass and lump, left lower limb (principal)
CPT/HCPCS: 93971

== ENCOUNTER 2024-02-23 12:59 | Observation (INO) | payer MEDICARE, BC, OTHER, SELFPAY ==
[2024-02-23] VITALS (11 sets, daily range): BP systolic 119–156; BP diastolic 58–86; PULSE 64–78; RESP 14–19; TEMP 36.6–37.2; O2SAT 93–100; BMI 34.5; BMI 34.9
[2024-02-23 15:08] LABS: Mucous, Urine 0 SEEN /hpf (<or=2+)
[2024-02-23 15:14] LABS: Color, Urine Brown (Yellow); Glucose, Dipstick Normal (Normal); Ketone-Dipstick Negative (Negative); Leukocyte Esterase-Dipstick 100 /ul (Negative); Nitrite-Dipstick Negative (Negative); Occult Blood-Urine 250 /ul (Negative); Protein-Dipstick 500 mg/dl (Negative); Urine Bilirubin Dipstick Negative (Negative); Urine Clarity Turbid (Clear); Urine Urobilinogen Normal (Normal)
--- NOTE | 2024-02-23 15:41 | CT_ITS ---
STUDY: CT ABDOMEN AND PELVIS WITH CONTRAST REASON FOR EXAM: Female, 68 years old. hematuria RADIATION DOSAGE (If Supplied By Facility): CTDIvol = ( 23.78 ) mGy, DLP = ( 1351.04 ) mGycm TECHNIQUE: Transaxial images were obtained from the dome of the diaphragm to the symphysis pubis without oral contrast. 100ml ISOVUE 370 was administered. Sagittal and coronal images were reconstructed. Individualized dose optimization techniques were used for this CT. COMPARISON: None. FINDINGS: The visualized lung bases are unremarkable. The visualized portions of the heart are within normal limits. Normal liver. Normal gallbladder and extrahepatic biliary system. Normal spleen. Normal pancreas. Normal bilateral adrenal glands. Normal right kidney. Normal left kidney. Normal visualized stomach. Normal small intestine. Normal colon. The appendix is visualized and appears normal. Normal abdominal aorta. Normal inferior vena cava. Normal retroperitoneum. Limited study of the bladder due to artifact related to hip prostheses producing artifact as well as none opacification with contrast however there is no definite abnormality.. There is absence of the uterus consistent with a prior hysterectomy. Normal abdominal wall. Lumbar spine demonstrates degenerative changes Bilateral hip prostheses are noted CT/Abdomen/Pelvis W IV Cont ONLY IMPRESSION: No significant abnormalities given limited visualization of the bladder due to artifact and lack of contrast opacification. Ultrasound may be useful for more definitive evaluation Electronically Signed: Robin Dior MD at 17:23 EDT ,
--- NOTE | 2024-02-23 15:41 | EX.ED.DYSGE1 ---
HPI History of Present Illness Chief Complaint: Complaint Detail of Chief Complaint: Hematuria Informant: patient Narrative Narrative: Patient presents to the emergency department complaint of hematuria that started 7 days ago. Patient states that she was started on Eliquis 8 days ago for history of a DVT in her left leg. Patient tells me the DVT was below the knee but this is her sixth DVT. Apparently there is been testing done to look for clotting disorders but she does not have results. Patient states that she was called by urology today to set up an appointment but they cannot see her for another 2 weeks and she does not know the name of the urologist she is going to follow-up with. Patient complains of feeling fatigued. She denies any chest pain or shortness of breath. Patient states that she was also treated for UTI with Keflex when she was diagnosed with her DVT. She describes some mild lower abdominal cramping at times. She denies any back pain. She has had no fever. [facility] Medical History Diabetes type 2, controlled Arthritis Hypertension Home Medications ?Medication ?Instructions ?Recorded ?Last Taken ?Type aspirin 81 mg tablet,delayed 325 mg PO DAILY@0800 04/18/14 Unknown History release atenolol 50 mg tablet 50 mg PO DAILY 04/18/14 01/02/16 07:15 History calcium 600 mg-D3 800 unit-mag 40 1 ea PO DAILY 04/18/14 Unknown History td-cnpu-ptnv-zuly-boron chew tablet (Caltrate 600-D Plus Minerals) lisinopril 5 mg tablet 5 mg PO DAILY 04/18/14 01/02/16 07:15 History oxycodone 15 mg tablet,crush 15 mg PO Q4H PRN Pain 04/18/14 01/02/16 07:15 History resistant,extended release 12 hr (OxyContin) simvastatin 20 mg tablet 20 mg PO QHS 04/18/14 Unknown History venlafaxine 75 mg tablet 75 mg PO BID 04/18/14 Unknown History Equate Sleep Aid 50 mg PO QHS PRN PRN Sleep 12/17/15 Unknown History Morphine [Morphine Ir] 30 mg PO TID 12/17/15 01/02/16 07:15 History cephalexin 250 mg capsule (Keflex) 250 mg PO DAILY 12/17/15 Unknown History clonidine HCl 0.2 mg tablet 0.2 mg PO DAILY 12/17/15 01/02/16 07:15 History cranberry extract 200 mg capsule 150 mg PO DAILY 12/17/15 Unknown History krill 1 ea PO DAILY 12/17/15 Unknown History yut-nb-6-sqj-vhe-awqfmdlwnotmx 300 mg-90 mg-24 mg-50 mg capsule (krill oil) multivitamin with folic acid 400 1 tab PO DAILY 12/17/15 Unknown History mcg tablet (Thera) pantoprazole 40 mg tablet,delayed 40 mg PO DAILY 12/17/15 01/02/16 07:15 History release cephalexin 500 mg capsule 500 mg PO Q6 ##40 01/15/16 Unknown Rx cephalexin 500 mg capsule 500 mg PO Q6 7 days #28 CAPSULES 02/07/24 Unknown Rx apixaban 5 mg (74 tabs) tablets in 5 mg PO BID #74 tabs 02/14/24 Unknown Rx a dose pack (EliquVisualXcript DVT-PE Treat 30D Start) Allergy/AdvReac Type Severity Reaction Status Date / Time codeine Allergy Other Verified 02/23/24 13:01 lorazepam (From Ativan) Allergy Unknown Verified 02/23/24 13:01 amoxicillin (Amoxicillin) AdvReac Nausea Verified 02/23/24 13:01 etodolac (From Lodine) AdvReac Diarrhea Verified 02/23/24 13:01 fluticasone propionate (From AdvReac Other Verified 02/23/24 13:01 Flovent Diskus) lansoprazole (From Prevacid) AdvReac Unknown Verified 02/23/24 13:01 lubiprostone AdvReac Nausea Verified 02/23/24 13:01 misoprostol (From Cytotec) AdvReac Diarrhea Verified 02/23/24 13:01 nitrofurantoin (From AdvReac Nausea Verified 02/23/24 13:01 Macrobid) nitrofurantoin AdvReac Nausea Verified 02/23/24 13:01 macrocrystalline (From Macrobid) topiramate (From Topamax) AdvReac Nausea Verified 02/23/24 13:01 Family History Grandmother Myocardial infarction Social History Smoking Status: Former smoker ROS ROS ED Review of Systems ROS Unobtainable: other Constitutional Constitutional ED: Reports lethargy; Denies chills, fever(s), sweats or weight loss Eyes Eyes: Denies blurry vision, change in vision or diplopia ENT ENT ED: Denies rhinorrhea or sore throat Cardiovascular Cardiovascular: Denies chest pain, orthopnea or racing heartbeat Respiratory/Chest Respiratory/Chest: Denies cough, dyspnea, dyspnea on exertion, orthopnea or sputum Gastrointestinal Gastrointestinal: Reports abdominal pain; Denies diarrhea, nausea or vomiting Genitourinary Genitourinary ED: Reports hematuria; Denies dysuria or urinary frequency Musculoskeletal Musculoskeletal: Denies arthralgias, back pain, myalgias or neck pain Integumentary Denies abscess, Abrasions or rash Neurologic Neurologic: Denies headache(s) or weakness Psychiatric Psychiatric: Denies anxiety, depression or suicidal thoughts Endocrine Endocrinology: Denies polydipsia, polyphagia or polyuria Hematologic/Lymphatic Hematologic/Lymphatic: Denies easy bleeding, easy bruising or lymphadenopathy Allergic/Immunologic Allergic/Immunologic ED: Denies mouth swelling, tongue swelling or urticaria EXAM Physical Exam Const Vital Signs: 02/23/24 13:01 02/23/24 17:00 Temperature 99 F Temperature Source Oral Pulse Rate 78 71 Respiratory Rate 15 19 H Blood Pressure 130/78 H 139/61 H Blood Pressure Mean 95 87 Pulse Ox 96 95 Oxygen Delivery Method Room Air Room Air Positive well nourished and well developed General Appearance ED: well developed and NAD HEENT Reports TM's clear and moist mucous membranes normocephalic and atraumatic; Negative for trauma or tenderness Tympanic Membrane ED: Yes TM's clear Eyes PERRL and EOMs intact bilaterally General Eye ED: Negative for pale conjunctiva or scleral icterus Neck no lymphadenopathy, supple and no JVD General: Negative for tenderness Chest Wall inspection of chest normal and palpation of chest normal Chest: Negative for tenderness Resp normal respiratory effort and clear to auscultation bilaterally Effort and Inspection: Negative for respiratory distress or pain with movement Auscultation: Negative for rhonchi, wheezes or diminished lung sounds Cardio regular rate, regular rhythm, S1 normal heart sound, S2 normal heart sound and no murmurs Peripheral Pulses: pulses 2+ throughout GI normal to inspection, nondistended, normoactive bowel sounds, soft to palpation, non-tender, non-distended and no masses Back/Spine no CVA tenderness and no thoracic nor lumbar tenderness Extremity normal to inspection General Extremety ED: Negative for edema General Extremity: Negative for edema Neuro oriented x3, CN's II-XII intact bilaterally, no sensory deficits noted and gait normal Sensorium / Orientation: awake, alert, oriented to person, oriented to place and oriented to time Motor Exam: strength 5/5 throughout and strength abnormal Psych mental status grossly normal Skin no rashes or lesions noted and no wounds MDM MDM MDM Narrative Medical decision making narrative: Patient presents to the emergency department with hematuria on Eliquis for history of DVT. She has had multiple DVTs in the past. IV line established. CBC with differential white count of 8.9 with hemoglobin 11.9 and platelet count of 355. Chemistries unremarkable. Urinalysis showed blood but no signs of infection. CT scan of the abdomen pelvis with IV contrast obtained showed no acute disease process but the bladder was not well-visualized due to artifact. I discussed case with Dr. Chandler who is on for vascular surgery. He would like the have patient admitted to medicine to place a Alisha filter tonight and then discontinue the Eliquis. Patient will be kept n.p.o. patient discussed with hospitalist will evaluate patient for admission Lab Data Attestation: I reviewed the patient's lab results. Labs: Laboratory Results - last 24 hr 02/23/24 02/23/24 15:03 16:05 WBC 8.9 RBC 4.00 L Hgb 11.9 L Hct 37.4 MCV 93.5 MCH 29.8 MCHC 31.8 L RDW Std Deviation 42.3 RDW Coeff of Radu 12.4 Plt Count 355 MPV 9.2 Sodium 142 Potassium 4.3 Chloride 105 Carbon Dioxide 33.0 H Anion Gap 4 L BUN 9 Creatinine 1.08 H Estim Creat Clear Calc 49.24 Est GFR (MDRD) Af Amer 64 Est GFR (MDRD) Non-Af 53 L BUN/Creatinine Ratio 8.3 L Glucose 108 H Calcium 9.7 Urine Color Brown Urine Clarity Turbid Urine pH 7.0 Ur Specific [place] 1.010 Urine Protein 500 H Urine Glucose (UA) Normal Urine Ketones Negative Urine Occult Blood 250 H Urine Nitrite Negative Urine Bilirubin Negative Urine Urobilinogen Normal Ur Leukocyte Esterase 100 H Urine RBC > 100 SEEN Urine WBC 0-5 SEEN Ur Squamous Epith Cells 0-5 SEEN Urine Bacteria 2+ Urine Mucus 0 SEEN Blood Type B POSITIVE Antibody Screen NEGATIVE Radiography Diagnostic Testing: Clinical Impression(s) from Imaging Studies Abdomen/Pelvis CT 02/23/24 15:41 IMPRESSION: No significant abnormalities given limited visualization of the bladder due to artifact and lack of contrast opacification. Ultrasound may be useful for more definitive evaluation Electronically Signed: Robin Dior MD at 17:23 EDT , Discharge Plan Triage Chief Complaint: Complaint ED Provider: Imtiaz Dixon Dx/Rx/DC Orders Clinical Impression: Hematuria, DVT (deep venous thrombosis) Prescriptions: No Action venlafaxine 75 MG tablet 75 mg PO BID aspirin 81 MG tablet 325 mg PO DAILY@0800 simvastatin 20 MG tablet 20 mg PO QHS lisinopril 5 MG tablet 5 mg PO DAILY atenolol 50 MG tablet 50 mg PO DAILY Zf-Q1-baf-hvcj-wdj-eaax-boron [Caltrate 600-D Plus Minerals] 1 EACH tablet,chewable 1 ea PO DAILY oxycodone [OxyContin] 15 MG tablet 15 mg PO Q4H PRN (Reason: Pain) cephalexin [Keflex] 250 MG capsule 250 mg PO DAILY clonidine HCl 0.2 MG tablet 0.2 mg PO DAILY pantoprazole 40 MG tablet 40 mg PO DAILY cranberry extract 200 MG capsule 150 mg PO DAILY multivitamin with folic acid [Thera] 1 TABLET tablet 1 tab PO DAILY nozet-oibhk-5-rni-ekc-xwfjpr [krill oil] 1 EACH capsule 1 ea PO DAILY Equate Sleep Aid 50 mg PO QHS PRN PRN (Reason: Sleep) Morphine [Morphine Ir] 30 MG tablet 30 mg PO TID cephalexin 500 MG capsule 500 mg PO Q6 Qty: 40 0RF cephalexin 500 mg capsule 500 mg PO Q6 7 Days Qty: 28 0RF Eliquis DVT-PE Treat 30D Start 5 mg (74 tabs) tablets,dose pack 5 mg PO BID Qty: 74 0RF Rx Instructions: Take 10 mg (2 tabs) twice daily for 7 days, then take 5 mg (1 tab) twice daily for 23 days. Primary Care Provider: Smiley Collins Referrals: Smiley Collins MD [Primary Care Provider] - Print Language: Cymro Disposition Disposition: Acute Care Hospital [facility]
[2024-02-23 15:54] LABS: Bacteria 2+ /hpf (None Seen); Red Blood Cells-Urine > 100 SEEN /hpf (0-5); Squamous Epithelial Cells - UA 0-5 SEEN /hpf (5-10); White Blood Cells 0-5 SEEN /hpf (0-5)
[2024-02-23 16:10] LABS: Hematocrit 37.4 % (37-47); Hemoglobin 11.9 g/dL (12.0-15.0); Mean Corp Hgb Conc 31.8 g/dL (32-36); Mean Corpuscular Hgb 29.8 pg (27.0-32.0); Mean Corpuscular Volume 93.5 fL (81-99); Mean Platelet Vol. 9.2 fl (6.2-12.0); Platelet Count 355 K/mm3 (150-450); RBC Distribution Width CV 12.4 % (11.6-14.6); RBC Distribution Width SD 42.3 fl (35.1-43.9); White Blood Count 8.9 K/mm3 (4.4-11.0)
[2024-02-23 16:23] LABS: Anion Gap 4 (5-15); BUN 9 mg/dL (7-18); BUN/Creat Ratio 8.3 RATIO (10-20); Calcium,Total 9.7 mg/dL (8.5-10.1); Chloride 105 mmol/L (98-107); Creatinine, Serum 1.08 mg/dL (0.55-1.02); EST Glomerular Filtration Rate 53 mL/min (>60); Est Glom Filt Rate - Afr Amer 64 mL/min (>60); Estimated Creatinine Clearance 49.24 ml/min; Glucose 108 mg/dL (74-106); Potassium 4.3 mmol/L (3.5-5.1); Sodium Level 142 mmol/L (136-145)
--- NOTE | 2024-02-23 18:40 | EKG12_ITS ---
Test Reason : BLOOD CLOT Blood Pressure : / mmHG Vent. Rate : 072 BPM Atrial Rate : 072 BPM P-R Int : 170 ms QRS Dur : 076 ms QT Int : 380 ms P-R-T Axes : 026 037 050 degrees QTc Int : 416 ms Normal sinus rhythm Normal ECG When compared with ECG of 07-FEB-2024 18:13, No significant change was found Confirmed by Castillo March ([id number]), website/blog editor CLARY AMADO ([id number]) on 02/25/2024 1:15:22 PM Referred By: ADEEL Confirmed By:Castillo March
--- NOTE | 2024-02-23 18:47 | EX.PCM.CON.S ---
Assessment & Plan Assessment/Plan (1) DVT (deep venous thrombosis): (2) Hematuria: PLAN: Plan Agree IVC filter is indicated given active hematuria and concurrent acute DVT. Discussed IVC Filter insertion procedure details including risks, benefits, and recovery with patient and her present family. All of their questions and concerns were addressed. She is agreeable. Will proceed with IVC filter placement tonight. Hospitalist agreed to admit her to medicine overnight for recovery and observation. HPI Consult Data Date of Consult: 02/23/24 HPI Narrative HPI Narrative: URIEL CHOUDHARY, is a 68 F who presents to the [facility] ER with significant acute gross hematuria with associated acute anemia with Hgb decrease from 13.0 to 11.9 in the setting of recently diagnosed acute LLE DVT currently on Eliquis. We are consulted for consideration of IVC Filter placement. She reports week long history of progressively worsened painless hematuria. She has an appointment with urology in 2 weeks but has not been seen and is not currently scheduled for any procedures. She denies any prior such hematuria. About 8 days ago she was started on Eliquis for an acute LLE DVT up to the femoral vein. She reports that prior to this DVT she did have a flu-like illness with associated vomiting/diarrhea so was pretty fatigued/inactive and dehydrated. She reports she has had 5 prior DVTs intially provoked by hormonal control and subsequently by procedures/surgeries. However, she had not been chronically anticoagulated in the last several years, just treated prophylactically around procedures. She only just recently completed a hypercoagulable workup, she does not have these results back yet. [facility] Medical History Diabetes type 2, controlled Arthritis Hypertension Home Medications ?Medication ?Instructions ?Recorded ?Last Taken ?Type aspirin 81 mg tablet,delayed 325 mg PO DAILY@0800 04/18/14 Unknown History release atenolol 50 mg tablet 50 mg PO DAILY 04/18/14 01/02/16 07:15 History calcium 600 mg-D3 800 unit-mag 40 1 ea PO DAILY 04/18/14 Unknown History pd-lwtp-amrp-zuly-boron chew tablet (Caltrate 600-D Plus Minerals) lisinopril 5 mg tablet 5 mg PO DAILY 04/18/14 01/02/16 07:15 History oxycodone 15 mg tablet,crush 15 mg PO Q4H PRN Pain 04/18/14 01/02/16 07:15 History resistant,extended release 12 hr (OxyContin) simvastatin 20 mg tablet 20 mg PO QHS 04/18/14 Unknown History venlafaxine 75 mg tablet 75 mg PO BID 04/18/14 Unknown History Equate Sleep Aid 50 mg PO QHS PRN PRN Sleep 12/17/15 Unknown History Morphine [Morphine Ir] 30 mg PO TID 12/17/15 01/02/16 07:15 History cephalexin 250 mg capsule (Keflex) 250 mg PO DAILY 12/17/15 Unknown History clonidine HCl 0.2 mg tablet 0.2 mg PO DAILY 12/17/15 01/02/16 07:15 History cranberry extract 200 mg capsule 150 mg PO DAILY 12/17/15 Unknown History krill 1 ea PO DAILY 12/17/15 Unknown History ynj-xv-7-edq-mpg-mtwcefwxwbobv 300 mg-90 mg-24 mg-50 mg capsule (krill oil) multivitamin with folic acid 400 1 tab PO DAILY 12/17/15 Unknown History mcg tablet (Thera) pantoprazole 40 mg tablet,delayed 40 mg PO DAILY 12/17/15 01/02/16 07:15 History release cephalexin 500 mg capsule 500 mg PO Q6 ##40 01/15/16 Unknown Rx cephalexin 500 mg capsule 500 mg PO Q6 7 days #28 CAPSULES 02/07/24 Unknown Rx apixaban 5 mg (74 tabs) tablets in 5 mg PO BID #74 tabs 02/14/24 Unknown Rx a dose pack (Eliquis DVT-PE Treat 30D Start) Allergy/AdvReac Type Severity Reaction Status Date / Time codeine Allergy Other Verified 02/23/24 13:01 lorazepam (From Ativan) Allergy Unknown Verified 02/23/24 13:01 amoxicillin (Amoxicillin) AdvReac Nausea Verified 02/23/24 13:01 etodolac (From Lodine) AdvReac Diarrhea Verified 02/23/24 13:01 fluticasone propionate (From AdvReac Other Verified 02/23/24 13:01 Flovent Diskus) lansoprazole (From Prevacid) AdvReac Unknown Verified 02/23/24 13:01 lubiprostone AdvReac Nausea Verified 02/23/24 13:01 misoprostol (From Cytotec) AdvReac Diarrhea Verified 02/23/24 13:01 nitrofurantoin (From AdvReac Nausea Verified 02/23/24 13:01 Macrobid) nitrofurantoin AdvReac Nausea Verified 02/23/24 13:01 macrocrystalline (From Macrobid) topiramate (From Topamax) AdvReac Nausea Verified 02/23/24 13:01 Family History Grandmother Myocardial infarction Social History Smoking Status: Former smoker Physical Exam Const alert, oriented x3 and no apparent distress General Appearance: cooperative HEENT normocephalic, head/scalp atraumatic and external nose normal Eyes EOMs intact bilaterally Neck General: normal visual inspection Resp normal respiratory effort Effort and Inspection: able to speak in complete sentences Cardio Rate: regular rate Rhythm: regular rhythm Neuro CN's II-XII intact bilaterally Speech: speech normal Psych mental status grossly normal Appearance: grossly normal Lab / Micro Data 02/23/24 16:05 02/23/24 16:05 Labs: Laboratory Results - last 24 hr 02/23/24 15:03: Urine Color Brown, Urine Clarity Turbid, Urine pH 7.0, Ur Specific [place] 1.010, Urine Protein 500 H, Urine Glucose (UA) Normal, Urine Ketones Negative, Urine Occult Blood 250 H, Urine Nitrite Negative, Urine Bilirubin Negative, Urine Urobilinogen Normal, Ur Leukocyte Esterase 100 H, Urine RBC > 100 SEEN, Urine WBC 0-5 SEEN, Ur Squamous Epith Cells 0-5 SEEN, Urine Bacteria 2+, Urine Mucus 0 SEEN 02/23/24 16:05: WBC 8.9, RBC 4.00 L, Hgb 11.9 L, Hct 37.4, MCV 93.5, MCH 29.8, MCHC 31.8 L, RDW Std Deviation 42.3, RDW Coeff of Radu 12.4, Plt Count 355, MPV 9.2, Sodium 142, Potassium 4.3, Chloride 105, Carbon Dioxide 33.0 H, Anion Gap 4 L, BUN 9, Creatinine 1.08 H, Estim Creat Clear Calc 49.24, Est GFR (MDRD) Af Amer 64, Est GFR (MDRD) Non-Af 53 L, BUN/Creatinine Ratio 8.3 L, Glucose 108 H, Calcium 9.7, Blood Type B POSITIVE, Antibody Screen NEGATIVE Imaging Radiology Impression Abdomen/Pelvis CT 02/23/24 15:41 IMPRESSION: No significant abnormalities given limited visualization of the bladder due to artifact and lack of contrast opacification. Ultrasound may be useful for more definitive evaluation Electronically Signed: Robin Dior MD at 17:23 EDT , Charges/Coding Visit Charges Inpatient E&M: 40854 Init Hosp L2
--- NOTE | 2024-02-23 18:57 | PCM.HP.STD ---
HPI - General General Date of Admission: 02/23/24 Date of Service: 02/23/24 Chief Complaint: Hematuria after 1 L starting Eliquis. HPI Narrative URIEL CHOUDHARY, is a 68 F came to ED after 1 day of starting Eliquis for DVT of left lower extremity. Patient came to ED on 02/14/2024 with swelling of left lower extremity for 2 days and found to have diffuse left lower extremity DVT on venous duplex. Prior to that she was having diarrhea and was dehydrated. She also has a history of 6 DVTs in the past including the last week DVT. Patient started having hematuria after 1 day on Eliquis 10 mg twice daily. Hematuria increased over the last 1 week and she feels fatigued. She also tried to make appointment with urologist but could not get it for next 2 weeks complain of mild abdominal cramping. In ED vitals reviewed and is in normal range. On visual exam patient has blood in the urine. ED physician called Dr. Chandler and patient is scheduled for Alisha filter tonight. [facility] Medical History Diabetes type 2, controlled Arthritis Hypertension Home Medications ?Medication ?Instructions ?Recorded ?Last Taken ?Type aspirin 81 mg tablet,delayed 325 mg PO DAILY@0800 04/18/14 Unknown History release atenolol 50 mg tablet 50 mg PO DAILY 04/18/14 01/02/16 07:15 History calcium 600 mg-D3 800 unit-mag 40 1 ea PO DAILY 04/18/14 Unknown History ya-yoje-eebo-zuly-boron chew tablet (Caltrate 600-D Plus Minerals) lisinopril 5 mg tablet 5 mg PO DAILY 04/18/14 01/02/16 07:15 History oxycodone 15 mg tablet,crush 15 mg PO Q4H PRN Pain 04/18/14 01/02/16 07:15 History resistant,extended release 12 hr (OxyContin) simvastatin 20 mg tablet 20 mg PO QHS 04/18/14 Unknown History venlafaxine 75 mg tablet 75 mg PO BID 04/18/14 Unknown History Equate Sleep Aid 50 mg PO QHS PRN PRN Sleep 12/17/15 Unknown History Morphine [Morphine Ir] 30 mg PO TID 12/17/15 01/02/16 07:15 History cephalexin 250 mg capsule (Keflex) 250 mg PO DAILY 12/17/15 Unknown History clonidine HCl 0.2 mg tablet 0.2 mg PO DAILY 12/17/15 01/02/16 07:15 History cranberry extract 200 mg capsule 150 mg PO DAILY 12/17/15 Unknown History krill 1 ea PO DAILY 12/17/15 Unknown History hnz-cr-7-ksl-ukx-boirbxsucqltf 300 mg-90 mg-24 mg-50 mg capsule (krill oil) multivitamin with folic acid 400 1 tab PO DAILY 12/17/15 Unknown History mcg tablet (Thera) pantoprazole 40 mg tablet,delayed 40 mg PO DAILY 12/17/15 01/02/16 07:15 History release cephalexin 500 mg capsule 500 mg PO Q6 ##40 01/15/16 Unknown Rx cephalexin 500 mg capsule 500 mg PO Q6 7 days #28 CAPSULES 02/07/24 Unknown Rx apixaban 5 mg (74 tabs) tablets in 5 mg PO BID #74 tabs 02/14/24 Unknown Rx a dose pack (Eliquis DVT-PE Treat 30D Start) Allergy/AdvReac Type Severity Reaction Status Date / Time codeine Allergy Other Verified 02/23/24 13:01 lorazepam (From Ativan) Allergy Unknown Verified 02/23/24 13:01 amoxicillin (Amoxicillin) AdvReac Nausea Verified 02/23/24 13:01 etodolac (From Lodine) AdvReac Diarrhea Verified 02/23/24 13:01 fluticasone propionate (From AdvReac Other Verified 02/23/24 13:01 Flovent Diskus) lansoprazole (From Prevacid) AdvReac Unknown Verified 02/23/24 13:01 lubiprostone AdvReac Nausea Verified 02/23/24 13:01 misoprostol (From Cytotec) AdvReac Diarrhea Verified 02/23/24 13:01 nitrofurantoin (From AdvReac Nausea Verified 02/23/24 13:01 Macrobid) nitrofurantoin AdvReac Nausea Verified 02/23/24 13:01 macrocrystalline (From Macrobid) topiramate (From Topamax) AdvReac Nausea Verified 02/23/24 13:01 Family History Grandmother Myocardial infarction Social History Smoking Status: Former smoker ROS ROS Narrative Constitutional: Reports fatigue and weakness. No fever. HEENT: Reports systems reviewed and no addt'l complaints, except as documented Respiratory/Chest: No acute shortness of breath or respiratory distress or wheezing. CVS: No chest pain pressure or tightness. Gastrointestinal: Denies coffee ground emesis, hematemesis or vomiting Genitourinary: Hematuria as described in HPI. Chronic UTI and just completed therapeutic dose of Keflex. On chronic prophylactic dose of Keflex too. Complain of mild burning micturition. Musculoskeletal: Left lower extremities swelling more than right lower extremity. No acute injury Neurologic: Denies seizure-like symptoms. skin: No ulcer. No rash Endocrinology: Reports systems reviewed and no addt'l complaints, except as documented Hematologic/Lymphatic: Left lower extremity DVT as described in HPI. Reports systems reviewed and no addt'l complaints, except as documented Rest 14 ROS are negative except as mentioned in HPI Vital Signs Vital Signs Vital Signs: 02/23/24 13:01 02/23/24 17:00 02/23/24 18:37 Temperature 99 F 97.8 F Temperature Source Oral Pulse Rate 78 71 78 Respiratory Rate 15 19 H 17 Blood Pressure 130/78 H 139/61 H 126/72 H Blood Pressure Mean 95 87 90 Pulse Ox 96 95 95 Oxygen Delivery Method Room Air Room Air Weight Weight: 189 lb Body Mass Index (BMI) 34.5 Physical Exam Narrative General: Alert, Oriented x3, Cooperative HEENT: Atraumatic, PERRLA, EOMI, Normocephalic Oral: Oral mucosa dry. No Gingival or Mucosal Lesions/ Ulcerations Neck: Supple, No JVD, Negative Carotid Bruits Chest wall/Lungs: Air entry diminished in bilateral lung bases. No crepitation/rhonchi Cardiovascular: Regular rate, Regular Rhythm, Normal S1, Normal S2, No M/G/R Abdomen: Bowel Sounds Present, Soft, Non Tender, Non-Distended : Hematuria. Mild dysuria. No renal angle tenderness. No suprapubic tenderness. Extremities: LLE swelling predominantly in thigh and calf more than RLE., Capillary Refill Less than 3 Seconds Skin: No rashes, No breakdown Musculoskeletal: Mild tenderness in left calf and thigh from DVT. Mild ROM restricted over left hip and knee. Neurological: Cranial nerves II-XII grossly intact, DTR 2+/4. No acute focal neurological deficit. Psych/Mental Status: Normal Affect, Appropriate. Results Lab / Micro Data 02/23/24 16:05 02/23/24 16:05 Labs: Laboratory Results - last 24 hr 02/23/24 15:03: Urine Color Brown, Urine Clarity Turbid, Urine pH 7.0, Ur Specific [place] 1.010, Urine Protein 500 H, Urine Glucose (UA) Normal, Urine Ketones Negative, Urine Occult Blood 250 H, Urine Nitrite Negative, Urine Bilirubin Negative, Urine Urobilinogen Normal, Ur Leukocyte Esterase 100 H, Urine RBC > 100 SEEN, Urine WBC 0-5 SEEN, Ur Squamous Epith Cells 0-5 SEEN, Urine Bacteria 2+, Urine Mucus 0 SEEN 02/23/24 16:05: WBC 8.9, RBC 4.00 L, Hgb 11.9 L, Hct 37.4, MCV 93.5, MCH 29.8, MCHC 31.8 L, RDW Std Deviation 42.3, RDW Coeff of Radu 12.4, Plt Count 355, MPV 9.2, Sodium 142, Potassium 4.3, Chloride 105, Carbon Dioxide 33.0 H, Anion Gap 4 L, BUN 9, Creatinine 1.08 H, Estim Creat Clear Calc 49.24, Est GFR (MDRD) Af Amer 64, Est GFR (MDRD) Non-Af 53 L, BUN/Creatinine Ratio 8.3 L, Glucose 108 H, Calcium 9.7, Blood Type B POSITIVE, Antibody Screen NEGATIVE Imaging Radiology Impression Abdomen/Pelvis CT 02/23/24 15:41 IMPRESSION: No significant abnormalities given limited visualization of the bladder due to artifact and lack of contrast opacification. Ultrasound may be useful for more definitive evaluation Electronically Signed: Robin Dior MD at 17:23 EDT , Assessment & Plan Assessment/Plan (1) Hematuria: (2) DVT (deep venous thrombosis): PLAN: Plan This 68-year-old pleasant lady admitted with hematuria due to recent restart of Eliquis therapeutic dose for DVT. 1. Acute hematuria secondary to oral anticoagulant/Eliquis: Patient is being admitted in PCU. She could not tolerate Eliquis therapeutic dose therefore we will hold it. Plan for IVC Alisha filter. Patient already evaluated by vascular surgery, MILA Adams. Currently n.p.o. but patient can restart on normal hold after procedure if she does not have postprocedure nausea or vomiting. UA shows LE 100, RBC more than 100 cells, WBC 0-5 cells, nitrite negative. 2. Subacute on recurrent DVT: Patient has total 6 DVT including last week diffuse left lower extremity DVT. Venous duplex on 02/15 shows acute DVT in left lower extremity. Eliquis discontinued for now. 3. Mild acute anemia due to acute blood loss anemia from hematuria: Hemoglobin 11.9 dropped from 13 g on 02/06. Platelet count in normal range. Does not need PRBC transfusion but monitoring. Follow CBC tomorrow AM. 4. Hypertension: Blood pressure in normal range. Hold antihypertensive medication today. 5. DM type II: Accu-Chek before meals and at bedtime with Humalog sliding scale coverage and hypoglycemia protocol. Glucose in BMP is 108. 6. Chronic arthritis: PT and OT ordered Living will/advanced directive/end of life care: Patient does have living will or advanced directive. Her is power of employment office clerk for health. After discussion of benefits/risks procedures involved with full code, DNR CC arrest and DNR CC, the patient opted for full code. Patient does want artificial life support including intubation, tube feed, ventilator and/chest compression, central venous catheter, vasopressor and DC shock if needed Total time spent in [id number] encounter in discussion of advanced directive 17 minutes. Laboratory Results 02/23/24 15:03: Urine Color Brown, Urine Clarity Turbid, Urine pH 7.0, Ur Specific [place] 1.010, Urine Protein 500 H, Urine Glucose (UA) Normal, Urine Ketones Negative, Urine Occult Blood 250 H, Urine Nitrite Negative, Urine Bilirubin Negative, Urine Urobilinogen Normal, Ur Leukocyte Esterase 100 H, Urine RBC > 100 SEEN, Urine WBC 0-5 SEEN, Ur Squamous Epith Cells 0-5 SEEN, Urine Bacteria 2+, Urine Mucus 0 SEEN 02/23/24 16:05: WBC 8.9, RBC 4.00 L, Hgb 11.9 L, Hct 37.4, MCV 93.5, MCH 29.8, MCHC 31.8 L, RDW Std Deviation 42.3, RDW Coeff of Radu 12.4, Plt Count 355, MPV 9.2, Sodium 142, Potassium 4.3, Chloride 105, Carbon Dioxide 33.0 H, Anion Gap 4 L, BUN 9, Creatinine 1.08 H, Estim Creat Clear Calc 49.24, Est GFR (MDRD) Af Amer 64, Est GFR (MDRD) Non-Af 53 L, BUN/Creatinine Ratio 8.3 L, Glucose 108 H, Calcium 9.7, Blood Type B POSITIVE, Antibody Screen NEGATIVE
--- NOTE | 2024-02-23 20:04 | OP.PCM_ITS ---
Report of Operation Date of Procedure: 02/23/24 Pre-Operative Diagnosis: DVT, hematuria Post-Operative Diagnosis: same Surgery/Procedure Performed:: insertion IVC filter Surgeon: Vicente Chandler Type of Anesthesia: Local and Sedation,Conscious Estimated Blood Loss (mL): 3 Description of Procedure: HPI: Patient is a 68-year-old female with recurrent deep venous thrombosis with most recent acute event within the last several weeks. She also had a concurrent urinary tract infection at the time of her DVT diagnosis. Upon initiation of anticoagulation she began to have hematuria which has persisted for approximately 1 week. Today she presented to the hospital because she was feeling more weak with generalized malaise and her hemoglobin was found to have decreased from her most recent baseline. She is taken now for urgent filter placement. Description of procedure: Upon obtaining form consent and verification correct patient procedure site patient was taken to the [employer] where she was positioned prepped and draped in usual sterile fashion. Timeouts performed conscious sedation administered Versed and fentanyl. Skin overlying the left common femoral vein was anesthetized 1% lidocaine the vessel accessed under ultrasound guidance with a micropuncture needle wire. This was then exchanged for micropuncture sheath routine injection ilio caval venogram was performed revealing satisfactory positioning with no extravasation dissection. This also revealed patent left iliac vein and inferior vena cava with no visible thrombus. Through the micropuncture sheath a J-wire was advanced and the micropuncture sheath was exchanged for the [employer] [place] filter delivery system which was advanced in the position adjacent to the L2 vertebral body. Digital subtraction venacavogram was then performed which confirmed normal caliber vena cava with no evidence of thrombus. This also revealed the confluence of the right renal vein which was the lowest which was then marked on the screen. Of note there was significant angulation of the inferior vena cava due to thoracic and lumbar spine angulation which centered at the renal vein confluence. Given this angu lation and trajectory of the wire was felt that the filter would be in satisfactory position with relation to the vena cava angulation though it would appear angulated on fluoroscopy. The [employer] [place] filter was advanced in position and deployed below the right renal vein. Completion venacavogram performed revealed satisfactory filter placement with regards to no tilt of the filter compared to the vena cava. The sheath was then withdrawn and manual pressure held until hemostasis was obtained. The patient was then taken the PCU for bedrest and recovery and monitoring of her hematuria.
[2024-02-23] MEDS: oxyCODONE 5 MG Tablet PO (21:40)
[2024-02-23] MEDS: 0.9% Normal Saline (1000mL) 1,000 ML 100 ML IV (21:43)
[2024-02-23 23:43] LABS: Bedside Glucose 124 mg/dL (74-106)
[2024-02-24] VITALS (11 sets, daily range): BP systolic 124–182; BP diastolic 62–82; PULSE 66–70; RESP 14–18; TEMP 34.1–37; O2SAT 93–100
[2024-02-24] MEDS: oxyCODONE 5 MG Tablet PO ×3 (02:30→13:42)
[2024-02-24 05:41] LABS: Absolute Lymphocyte Count 1.97 X10^3/uL (0.83-4.51); Absolute Neutrophil Count 5.5 X10^3/uL (2.0-7.7); Basophil# 0.05 X10^3/uL; Basophil% 0.6 % (0-1); Eosinophil# 0.22 X10^3/uL; Eosinophils% 2.6 % (0-5); Hematocrit 33.4 % (37-47); Hemoglobin 10.7 g/dL (12.0-15.0); Lymphocyte # 1.97 X10^3/ul (0.83-4.51); Lymphocyte % 23.5 % (19-41); Mean Corpuscular Hgb 29.8 pg (27.0-32.0); Mean Platelet Vol. 9.3 fl (6.2-12.0); Monocyte# 0.62 X10^3/uL; Monocyte% 7.4 % (0-10); NRBC Flagged by Analyzer 0 % (0-5); Neutrophil # 5.48 X10^3/uL (2.7-7.7); Neutrophil % 65.5 % (47-70); Platelet Count 325 K/mm3 (150-450); RBC Distribution Width CV 12.4 % (11.6-14.6); RBC Distribution Width SD 42.8 fl (35.1-43.9); Red Blood Count 3.59 M/mm3 (4.2-5.4); White Blood Count 8.4 K/mm3 (4.4-11.0)
[2024-02-24 06:12] LABS: Anion Gap 5 (5-15); BUN 8 mg/dL (7-18); BUN/Creat Ratio 8.8 RATIO (10-20); Calcium,Total 8.8 mg/dL (8.5-10.1); Chloride 106 mmol/L (98-107); EST Glomerular Filtration Rate 65 mL/min (>60); Est Glom Filt Rate - Afr Amer 79 mL/min (>60); Estimated Creatinine Clearance 59.37 ml/min; Glucose 92 mg/dL (74-106); Potassium 3.6 mmol/L (3.5-5.1); Sodium Level 138 mmol/L (136-145)
[2024-02-24 07:18] LABS: Bedside Glucose 96 mg/dL (74-106)
[2024-02-24] MEDS: Atenolol 50 MG Tablet PO (09:06)
[2024-02-24] MEDS: Cephalexin 250 MG Capsule PO (09:06)
--- NOTE | 2024-02-24 10:30 | PN.SURG_ITS ---
Subjective Subjective Chaparrita was seen resting comfortably in bed this morning. No pain/swelling/bleeding from the L groin access site. She denies any new/worsened abdominal/back/flank pain. She is still having gross hematuria. No other complaints. Objective Data Objective Data Vital Signs: Vital Signs Temp Pulse Resp BP Pulse Ox O2 Del Method 98.0 F 70 16 150/71 H 96 Room Air 02/24/24 09:05 02/24/24 09:05 02/24/24 09:05 02/24/24 09:05 02/24/24 09:05 02/24/24 09:05 Oxygen Delivery Method Room Air Weight: 190 lb 11.198 oz Body Mass Index (BMI) 34.9 Intake & Output: Intake and Output for Last 24 Hours 02/22/24 02/23/24 02/24/24 23:59 23:59 23:59 Intake Total 1480 / 1480 Output Total Balance 1479 / 1479 Lab / Micro Data 02/24/24 05:26 02/24/24 05:26 Labs: Laboratory Results - last 24 hr 02/23/24 15:03: Urine Color Brown, Urine Clarity Turbid, Urine pH 7.0, Ur Specific [place] 1.010, Urine Protein 500 H, Urine Glucose (UA) Normal, Urine Ketones Negative, Urine Occult Blood 250 H, Urine Nitrite Negative, Urine Bilirubin Negative, Urine Urobilinogen Normal, Ur Leukocyte Esterase 100 H, Urine RBC > 100 SEEN, Urine WBC 0-5 SEEN, Ur Squamous Epith Cells 0-5 SEEN, Urine Bacteria 2+, Urine Mucus 0 SEEN 02/23/24 16:05: WBC 8.9, RBC 4.00 L, Hgb 11.9 L, Hct 37.4, MCV 93.5, MCH 29.8, M CHC 31.8 L, RDW Std Deviation 42.3, RDW Coeff of Radu 12.4, Plt Count 355, MPV 9.2, Sodium 142, Potassium 4.3, Chloride 105, Carbon Dioxide 33.0 H, Anion Gap 4 L, BUN 9, Creatinine 1.08 H, Estim Creat Clear Calc 49.24, Est GFR (MDRD) Af Amer 64, Est GFR (MDRD) Non-Af 53 L, BUN/Creatinine Ratio 8.3 L, Glucose 108 H, Calcium 9.7, Blood Type B POSITIVE, Antibody Screen NEGATIVE 02/23/24 21:49: POC Glucose 124 H 02/24/24 05:26: WBC 8.4, RBC 3.59 L, Hgb 10.7 L, Hct 33.4 L, MCV 93.0, MCH 29.8, MCHC 32.0, RDW Std Deviation 42.8, RDW Coeff of Radu 12.4, Plt Count 325, MPV 9.3, Immature Gran % (Auto) 0.400, Neut % (Auto) 65.5, Lymph % (Auto) 23.5, [place] % (Auto) 7.4, Eos % (Auto) 2.6, Baso % (Auto) 0.6, Absolute Neuts (auto) 5.5, Absolute Lymphs (auto) 1.97, Nucleated RBC % 0, Sodium 138, Potassium 3.6, Chloride 106, Carbon Dioxide 28.0, Anion Gap 5, BUN 8, Creatinine 0.90, Estim Creat Clear Calc 59.37, Est GFR (MDRD) Af Amer 79, Est GFR (MDRD) Non-Af 65, B UN/Creatinine Ratio 8.8 L, Glucose 92, Calcium 8.8 02/24/24 06:38: POC Glucose 96 Radiography Diagnostic Testing: Radiology Impression Abdomen/Pelvis CT 02/23/24 15:41 IMPRESSION: No significant abnormalities given limited visualization of the bladder due to artifact and lack of contrast opacification. Ultrasound may be useful for more definitive evaluation Electronically Signed: Robin Dior MD at 17:23 EDT Reading Location ID and State: [facility] - [place] / [place] Tel , Service support , Physical Exam Const alert, oriented x3 and no apparent distress General Appearance: cooperative and comfortable HEENT normocephalic, head/scalp atraumatic, hearing grossly normal bilaterally, external ears normal and external nose normal Eyes EOMs intact bilaterally General Eye: normal appearance of both eyes Neck General: normal visual inspection and trachea midline Resp normal respiratory effort, no retractions and no use of accessory muscles Effort and Inspection: able to speak in complete sentences; Negative for labored, grunting or stridor Cardio regular rate and regular rhythm Extremity Extremity Narrative: L groin access site with dry dressing C/D/I. No focal edema, ecchymosis, bleed- through, erythema. Soft and nontender to palpation. Skin no rashes or lesions noted Assessment & Plan Assessment/Plan (1) DVT (deep venous thrombosis): (2) Hematuria: (3) S/P IVC filter: PLAN: Plan She is status post IVC filter insertion via left groin access on 02/23/2024. She tolerated the procedure well. Left groin access site satisfactory in appearance without any evidence of hematoma. From vascular surgical perspective, appropriate for discharge whenever medically ready. Will plan for to follow-up in the office as an outpatient, our office will contact her to schedule an appointment. Charges/Coding Visit Charges Inpatient E&M: 71831 Subs Hosp L1
[2024-02-24 11:34] LABS: Bedside Glucose 107 mg/dL (74-106)
--- NOTE | 2024-02-24 12:06 | CHAPLAIN ---
Type of Pastoral Visit _x__ Initial Visit ___ Follow-up Visit ___ On-call Visit ___ General Patient Visit ___ Spiritual Assessment ___ Family Conference ___ Bereavement ___ Rapid Response ___ Code Blue ___ Other (describe below) Pastoral Care Referral From _x__ Patient ___ Family ___ Nurse ___ Physician ___ Tea Taster ___ Terrazzo Finisher ___ Other (describe below) Sacrament/Intervention _x__ Active listening ___ Anointing ___ Methodist ___ Bereavement ___ Communion ___ Lili exploration ___ ___ Life review _x__ Prayer ___ Reconciliation ___ Sacrament of Sick _x__ Supportive presence ___ Wedding ___ Other (describe below) Pastoral Comments patient and a granddaughter are in the room; pt expresses sense of some relief because of passing a 'test for going home'; pt states that her problem has been ongoing and that it is a frustration to have to go through this again; pt does share some optimism as a procedure was finally done that could fix it; pt just wants to go home and live her life again; pt is concerned to be at home with her ; pt welcomes prayer for support in these matters and appreciates the time to express them
--- NOTE | 2024-02-24 12:46 | PCM.PROGNOTE ---
Subjective Subjective Patient seen and examined. She had no active complaints. She is still having hematuria. She says she has had 6 blood clots in her lower extremities. She is going to get IVC filter today. Objective Data Objective Data Vital Signs: Vital Signs Temp Pulse Resp BP Pulse Ox O2 Del Method 98.0 F 70 16 150/71 H 96 Room Air 02/24/24 09:05 02/24/24 09:05 02/24/24 09:05 02/24/24 09:05 02/24/24 09:05 02/24/24 09:05 Oxygen Delivery Method Room Air Weight: 190 lb 11.198 oz Body Mass Index (BMI) 34.9 Intake & Output: Intake and Output for Last 24 Hours 02/22/24 02/23/24 02/24/24 23:59 23:59 23:59 Intake Total 1480 / 1480 Output Total Balance 1479 / 1479 Lab / Micro Data 02/24/24 05:26 02/24/24 05:26 Labs: Laboratory Results - last 24 hr 02/23/24 15:03: Urine Color Brown, Urine Clarity Turbid, Urine pH 7.0, Ur Specific [place] 1.010, Urine Protein 500 H, Urine Glucose (UA) Normal, Urine Ketones Negative, Urine Occult Blood 250 H, Urine Nitrite Negative, Urine Bilirubin Negative, Urine Urobilinogen Normal, Ur Leukocyte Esterase 100 H, Urine RBC > 100 SEEN, Urine WBC 0-5 SEEN, Ur Squamous Epith Cells 0-5 SEEN, Urine Bacteria 2+, Urine Mucus 0 SEEN 02/23/24 16:05: WBC 8.9, RBC 4.00 L, Hgb 11.9 L, Hct 37.4, MCV 93.5, MCH 29.8, MCHC 31.8 L, RDW Std Deviation 42.3, RDW Coeff of Radu 12.4, Plt Count 355, MPV 9.2, Sodium 142, Potassium 4.3, Chloride 105, Carbon Dioxide 33.0 H, Anion Gap 4 L, BUN 9, Creatinine 1.08 H, Estim Creat Clear Calc 49.24, Est GFR (MDRD) Af Amer 64, Est GFR (MDRD) Non-Af 53 L, BUN/Creatinine Ratio 8.3 L, Glucose 108 H, Calcium 9.7, Blood Type B POSITIVE, Antibody Screen NEGATIVE 02/23/24 21:49: POC Glucose 124 H 02/24/24 05:26: WBC 8.4, RBC 3.59 L, Hgb 10.7 L, Hct 33.4 L, MCV 93.0, MCH 29.8, MCHC 32.0, RDW Std Deviation 42.8, RDW Coeff of Radu 12.4, Plt Count 325, MPV 9.3, Immature Gran % (Auto) 0.400, Neut % (Auto) 65.5, Lymph % (Auto) 23.5, [place] % (Auto) 7.4, Eos % (Auto) 2.6, Baso % (Auto) 0.6, Absolute Neuts (auto) 5.5, Absolute Lymphs (auto) 1.97, Nucleated RBC % 0, Sodium 138, Potassium 3.6, Chloride 106, Carbon Dioxide 28.0, Anion Gap 5, BUN 8, Creatinine 0.90, Estim Creat Clear Calc 59.37, Est GFR (MDRD) Af Amer 79, Est GFR (MDRD) Non-Af 65, BUN/Creatinine Ratio 8.8 L, Glucose 92, Calcium 8.8 02/24/24 06:38: POC Glucose 96 02/24/24 11:05: POC Glucose 107 H Radiography Diagnostic Testing: Radiology Impression Abdomen/Pelvis CT 02/23/24 15:41 IMPRESSION: No significant abnormalities given limited visualization of the bladder due to artifact and lack of contrast opacification. Ultrasound may be useful for more definitive evaluation Electronically Signed: Robin Dior MD at 17:23 EDT Reading Location ID and State: [facility] / [place] Tel , Service support , Physical Exam Const alert, oriented x3 and no apparent distress General Appearance: cooperative and well developed HEENT normocephalic, head/scalp atraumatic, moist oral mucous membranes and oropharynx normal Eyes PERRL and EOMs intact bilaterally Neck no lymphadenopathy and supple Lymph Lymphatic: no lymphadenopathy noted and no lymphedema noted Resp normal respiratory effort, normal air movement and clear to auscultation bilaterally Cardio regular rate, regular rhythm, S1 normal heart sound, S2 normal heart sound and no murmurs GI normal to inspection, nondistended, normoactive bowel sounds, soft to palpation, non-tender and non-distended Extremity Extremity Narrative: LLE swollen, mildly tender to touch. Minimal erythema. Skin Skin Narrative: as under extremity Neuro CN's II-XII intact bilaterally, no focal motor deficits, no sensory deficits noted and deep tendon reflexes 2+ bilaterally Motor Exam: strength 5/5 throughout and general weakness Psych thought process normal and cooperative Appearance: appropriate Assessment & Plan Assessment/Plan (1) DVT (deep venous thrombosis): (2) Hematuria: PLAN: Plan #Hematuria due to anticoagulant use was put on eliquis after being diagnosed with DVT of the RLE earlier in February 2024. started having hematuria. for IVC filter insertion today #DVT of the LLE was diagnosed with DVT on 02/14/2024 after she presented to ED with swelling of the LLE, and
--- NOTE | 2024-02-24 13:51 | DS.PCM_ITS ---
Providers Date of Admission: 02/23/24 Date of Discharge: 02/24/24 Primary Care Physician: Dr. Smiley Collins MD Consultations 02/23/24 20:40 Consult: Vascular Surgery Routine Consulting Provider: Vicente Chandler Reason for Consult: DVT, Couldn't toleate ACs EMERGENT Consult: No MD Notified: Yes Date Notified: 02/23/24 Time Notified: 18:00 Method of Notification: ED Physician Initiated Reason For Visit: HEMATURIA DUE TO ELIQUIS Diagnosis Discharge Diagnosis (1) DVT (deep venous thrombosis): Status: Acute Code(s): I82.409 - Acute embolism and thrombosis of unspecified deep veins of unspecified lower extremity (2) Hematuria: Status: Acute Code(s): R31.9 - Hematuria, unspecified (3) S/P IVC filter: Status: Acute Code(s): Z95.828 - Presence of other vascular implants and grafts Plan #Hematuria due to anticoagulant use * was put on eliquis after being diagnosed with DVT of the RLE earlier in February 2024. * started having hematuria. * for IVC filter insertion today * #DVT of the LLE * was diagnosed with DVT on 02/14/2024 after she presented to ED with swelling of the LLE, and Medications at Discharge Home Medications atenolol 50 mg tablet 50 mg PO DAILY 04/18/14 calcium 600 mg-D3 800 unit-mag 40 [id number]-zuly-boron chew tablet (Caltrate 600-D Plus Minerals) 1 ea PO DAILY 04/18/14 lisinopril 5 mg tablet 20 mg PO DAILY 04/18/14 oxycodone 15 mg tablet,crush resistant,extended release 12 hr (OxyContin) 15 mg PO BID Pain 04/18/14 cephalexin 250 mg capsule (Keflex) 250 mg PO DAILY 12/17/15 cranberry extract 200 mg capsule 150 mg PO DAILY 12/17/15 multivitamin with folic acid 400 mcg tablet (Thera) 1 tab PO DAILY 12/17/15 pantoprazole 40 mg tablet,delayed release 40 mg PO DAILY 12/17/15 benzonatate 100 mg capsule 200 mg PO TID PRN PRN cough 02/23/24 carvedilol 12.5 mg tablet 12.5 mg PO BID 02/23/24 metformin 500 mg tablet,extended release 24 hr 500 mg PO BID 02/23/24 morphine 15 mg tablet,extended release 15 mg PO Q12.TCU 02/23/24 oxycodone 10 mg tablet 10 mg PO BID PRN PRN pain 02/23/24 rosuvastatin 5 mg tablet (Crestor) 5 mg PO QHS cholestrol 02/23/24 venlafaxine 75 mg capsule,extended release 24 hr (Effexor XR) 75 mg PO BID 02/23/24 Hospital Course Operations None Procedures IVC filter placement Summary of Care Provided Minutes Spent on Discharge: 55 Hospital Course: Patient is a 68-year-old female with a past medical history as outlined who was admitted to the ED on 02/23/2024 on account of hematuria. Patient had been diagnosed with DVT in the left lower extremity on 02/14/2024 who is presented to the ED with left lower extremity swelling. Duplex of the left lower extremity that had shown diffuse left lower extremity DVT. She had been started on Eliquis but started having hematuria. The hematuria had gradually worsened he subsequently felt weak and tired so she decided to come into the ED. 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 However, a perusal of the chart showed that she had had one documented episode of dVT on 02/14/2024 and another documented episode of superficial thrombophlebitis on 11/14/2012. . There is no documentation of any other DVTs. She was admitted and managed for hematuria due to anticoagulant use. Her hemoglobin was 10.7.Vascular surgery was consulted and she had IVC filter inserted. Patient was counseled that her history was not very clear, with her saying she had 6 previous DVTs, and had been on coumadin once, and on lovenox for just one week. Explained to patient that she may likely have had superficial thrombophlebitis for which there was 1 episode documented in her chart. She does not have any family history of recurrent DVTs or PEs and has not had any spontaneous abortions in the past. She is never seen a sterile process tech. Patient counseled to follow-up with her PCP will be referred to hematology for further evaluation and further workup as needed. She was counseled that the IVC would prevent DVTs from migrating to the pulmonary arteries but she was counseled that she was still at risk for developing a de swapna PE in light of her not being on blood thinners. Patient expressed understanding. Of note, her hematuria had largely resolved and urine had cleared significantly. Of note, urinalysis showed 2+ bacteria and 100 leukocyte esterase. However he had had 3+ urine bacteria on 02/07/2024 with more than 100 WBC at the previous lab. She does not have any urinary symptoms now so the 2+ bacteria may be chronic colonization or asymptomatic bacteriuria. The hematuria has resolved and is likely due to the Eliquis. Will therefore hold off on starting any antibiotics. Patient seen and examined. She had no active complaints. Labs and vitals reviewed. HOme meds reviewed and reconciled. Physical Exam Const alert, oriented x3 and no apparent distress General Appearance: cooperative and comfortable Orientation / Consciousness: awake Exam Limitations: no limitations HEENT normocephalic, head/scalp atraumatic, hearing grossly normal bilaterally, moist oral mucous membranes and oropharynx normal Mouth: oral and palatal mucosa normal Eyes PERRL, EOMs intact bilaterally and conjunctivae normal Neck no lymphadenopathy and supple Resp normal respiratory effort, no retractions, no use of accessory muscles and clear to auscultation bilaterally Cardio regular rate, regular rhythm, S1 normal heart sound, S2 normal heart sound and no murmurs GI normal to inspection, nondistended, normoactive bowel sounds, soft to palpation and non-tender Extremity normal to inspection and full ROM Extremity Narrative: LLE swelling and edema; no tenderness or erythema. Skin no rashes or lesions noted and no wounds Neuro oriented x3, CN's II-XII intact bilaterally, moves all extremities and no focal motor deficits Motor Exam: strength 5/5 throughout Psych affect normal Weight / BMI Weight Weight: 190 lb 11.198 oz Body Mass Index (BMI) 34.9 ABG / Lab / Microbiology Data 02/24/24 05:26 02/24/24 05:26 Laboratory: Laboratory Results - last 24 hr 02/23/24 15:03: Urine Color Brown, Urine Clarity Turbid, Urine pH 7.0, Ur Specific [place] 1.010, Urine Protein 500 H, Urine Glucose (UA) Normal, Urine Ketones Negative, Urine Occult Blood 250 H, Urine Nitrite Negative, Urine Bilirubin Negative, Urine Urobilinogen Normal, Ur Leukocyte Esterase 100 H, Urine RBC > 100 SEEN, Urine WBC 0-5 SEEN, Ur Squamous Epith Cells 0-5 SEEN, Urine Bacteria 2+, Urine Mucus 0 SEEN 02/23/24 16:05: WBC 8.9, RBC 4.00 L, Hgb 11.9 L, Hct 37.4, MCV 93.5, MCH 29.8, M CHC 31.8 L, RDW Std Deviation 42.3, RDW Coeff of Radu 12.4, Plt Count 355, MPV 9.2, Sodium 142, Potassium 4.3, Chloride 105, Carbon Dioxide 33.0 H, Anion Gap 4 L, BUN 9, Creatinine 1.08 H, Estim Creat Clear Calc 49.24, Est GFR (MDRD) Af Amer 64, Est GFR (MDRD) Non-Af 53 L, BUN/Creatinine Ratio 8.3 L, Glucose 108 H, Calcium 9.7, Blood Type B POSITIVE, Antibody Screen NEGATIVE 02/23/24 21:49: POC Glucose 124 H 02/24/24 05:26: WBC 8.4, RBC 3.59 L, Hgb 10.7 L, Hct 33.4 L, MCV 93.0, MCH 29.8, MCHC 32.0, RDW Std Deviation 42.8, RDW Coeff of Radu 12.4, Plt Count 325, MPV 9.3, Immature Gran % (Auto) 0.400, Neut % (Auto) 65.5, Lymph % (Auto) 23.5, [place] % (Auto) 7.4, Eos % (Auto) 2.6, Baso % (Auto) 0.6, Absolute Neuts (auto) 5.5, Absolute Lymphs (auto) 1.97, Nucleated RBC % 0, Sodium 138, Potassium 3.6, Chloride 106, Carbon Dioxide 28.0, Anion Gap 5, BUN 8, Creatinine 0.90, Estim Creat Clear Calc 59.37, Est GFR (MDRD) Af Amer 79, Est GFR (MDRD) Non-Af 65, B UN/Creatinine Ratio 8.8 L, Glucose 92, Calcium 8.8 02/24/24 06:38: POC Glucose 96 02/24/24 11:05: POC Glucose 107 H Radiography Diagnostic Testing: Radiology Impression Abdomen/Pelvis CT 02/23/24 15:41 IMPRESSION: No significant abnormalities given limited visualization of the bladder due to artifact and lack of contrast opacification. Ultrasound may be useful for more definitive evaluation Electronically Signed: Robin Dior MD at 17:23 EDT , D/C Instructions Discharge Diet: Low fat / Low cholesterol Discharge Activity: Return to Normal Activity Weight Bearing Status: Weight bearing as tolerated Call your doctor if you observe: Fever of 101 or Higher, Shortness of breath, Dizziness, Swelling in the ankles and Chest pain Meaningful Use Info Meaningful Use Meaningful Use Diagnoses (Choose all that apply): VTE Ischemic Stroke Statin Dosing Therapy Reference: STATIN DOSE THERAPY REFERENCE: * Patients > 75 years receive moderate or high dose statin therapy. * Patients 75 years or YOUNGER should receive HIGH intensity statin dose unless contraindicated. You will be required to document reason for non-treatment if statin daily dose does not meet guidelines. HIGH DOSE STATIN THERAPY DAILY Atorvastatin > than or = to 40 mg Rosuvastatin > than or = to 20 mg Amlodipine + Atorvastatin > than or = to 2.5/40 mg Ezetimibe + Simvastatin 10/80 mg Simvastatin 80mg VTE Anticoag overlap given w/in hospital stay or rx'd at ut?: No Pt receive overlap for 5 days?: No Reason overlap not ordered, prescribed, or given for 5 days: Medical Contraindication (hematuria) Discharge Plan Admission Admit Date/Time: 02/23/24 18:54 Primary Reason for Your Visit: hematuria Attending Provider: Karlie Ann Primary Care Provider: Smiley Collins Consulting Providers: Vicente Chandler; Teddy Ching Instructions Patient Instructions: What is Hematuria? Discharge Orders/Prescriptions Prescriptions: Continued lisinopril 5 MG tablet 20 mg PO DAILY atenolol 50 MG tablet 50 mg PO DAILY Caltrate 600-D Plus Minerals 1 EACH tablet,chewable 1 ea PO DAILY oxycodone [OxyContin] 15 MG tablet 15 mg PO BID cephalexin [Keflex] 250 MG capsule 250 mg PO DAILY pantoprazole 40 MG tablet 40 mg PO DAILY cranberry extract 200 MG capsule 150 mg PO DAILY multivitamin with folic acid [Thera] 1 TABLET tablet 1 tab PO DAILY rosuvastatin [Crestor] 5 mg tablet 5 mg PO QHS venlafaxine [Effexor XR] 75 mg capsule,extended release 24hr 75 mg PO BID benzonatate 100 mg capsule 200 mg PO TID PRN PRN (Reason: cough) carvedilol 12.5 mg tablet 12.5 mg PO BID metformin 500 mg tablet extended release 24 hr 500 mg PO BID morphine 15 mg tablet extended release 15 mg PO Q12.TCU oxycodone 10 mg tablet 10 mg PO BID PRN PRN (Reason: pain) Discontinued Chriss DVT-PE Treat 30D Start 5 mg (74 tabs) tablets,dose pack 5 mg PO BID Qty: 74 0RF Rx Instructions: Take 10 mg (2 tabs) twice daily for 7 days, then take 5 mg (1 tab) twice daily for 23 days. Referrals / Follow Up: Smiley Collins MD [Primary Care Provider] - Within 1 Week Darius Mei MD [Med Staff - Active Staff] - Within 2 Weeks (recurrent DVT) Disposition Disposition (needs filled in before D/C Order can be placed): Home, Self Care Charges/Coding Visit Charges Inpatient E&M: 16541 Disch Hosp >30min
--- NOTE | 2024-02-24 14:50 | CASEMGMT ---
Patient has order for discharge. RN CM in to discuss needs at discharge, family at bedside. Patient denies needs or help at discharge. Patient had no further questions or concerns.
== END 2024-02-24 14:08 | disposition home or self-care (01) ==
LOC: ED 18:41 → PCU 19:32
PROVIDERS: Admitting Provider Internal Medicine; Emergency Provider Emergency Medicine; PCP Internal Medicine; Visit Provider Student in an Organized Health Care Education/Training Program
DX: Z45.89 Encounter for adjustment and management of other implanted devices (principal); I82.409 Acute embolism and thrombosis of unspecified deep veins of unspecified lower extremity; E11.9 Type 2 diabetes mellitus without complications; D68.32 Hemorrhagic disorder due to extrinsic circulating anticoagulants; R31.9 Hematuria, unspecified; Z87.891 Personal history of nicotine dependence; Z79.01 Long term (current) use of anticoagulants; Z86.718 Personal history of other venous thrombosis and embolism; D62 Acute posthemorrhagic anemia; Z95.828 Presence of other vascular implants and grafts; I10 Essential (primary) hypertension; Z79.82 Long term (current) use of aspirin; Z79.899 Other long term (current) drug therapy
CPT/HCPCS: 36415; 37191; 74177; 76937; 80048; 81001; 82962; 85025; 85027; 86850; 86900; 86901; 93005; 94668; 96360; 96361; 99152; 99221; 99284; C1894; J7030; Q9967; A4216; C1769; C1880; G0378

== ENCOUNTER → 2024-03-16 | Outpatient (CLI) | payer MEDICARE, BC, OTHER, SELFPAY | END | disposition home or self-care (01) | LOC: CVS 10:53 | PROVIDERS: PCP Internal Medicine; Visit Provider Internal Medicine Medical Oncology | DX: M79.605 Pain in left leg (principal); M79.89 Other specified soft tissue disorders | CPT/HCPCS: 93970 ==

== ENCOUNTER → 2024-03-22 | Outpatient (CLI) | payer MEDICARE, BC, OTHER, SELFPAY ==
--- NOTE | 2024-03-22 | CYSPIN_PTH ---
PATIENT: URIEL CHOUDHARY LOC: LAB U#:[id number] AGE/SX: 68/F ROOM: RE03/22/[address]: Dr. Abhi Ellison MD : [id number] BED: DIS: 03/22/2024 SPEC #: [id number] RECD: 03/22/24 16:47 STATUS: LEISA NASCIMENTO #: [id number] JACKY: 03/22/24 00:[address]: Abhi Ellison DEPT: CYTOLOGY RECD BY: Jorgito Saldana ENTERED: 03/23/24 07:36 SP TYPE: CYSPIN FL OTHR DR: Dr. Smiley Collins MD Tissues: Urine Procedures: Pap Stain (control) Special Stain Group II Cytospin Fluid HEADER OPERATION: Not noted PRE-OP DIAGNOSIS: Hematuria TISSUE SUBMITTED: Urine for cytology DIAGNOSIS CYTOLOGY Urine for cytology (cytospin): Negative for high grade urothelial carcinoma (Johnna System Category II). See comment. AAYUSH/ 03/23/2024 COMMENT The Johnna System for urine cytology diagnostic categorization was used in the evaluation of this case. The specimen primarily consists of benign squamous epithelial cells. Clinical correlation is suggested. CYTOLOGY STUDY Slides are reviewed. CYTOLOGY GROSS Received is 10.5 ml of dark yellow-cloudy fluid labeled with the patient's name and and designated per the requisition as urine. Submitted for cytology preparation. Mr 03/23/2024 TC:5 CPT: 08565
[2024-03-22 16:48] LABS: Cytology, Body Fluid / CSF SEE PATHOLOGY REPORT; Red Blood Cells-Urine 0 SEEN /hpf (0-5)
[2024-03-22 17:27] LABS: Color, Urine Yellow (Yellow); Glucose, Dipstick Normal (Normal); Ketone-Dipstick Negative (Negative); Leukocyte Esterase-Dipstick 25 /ul (Negative); Nitrite-Dipstick Negative (Negative); Occult Blood-Urine Negative /ul (Negative); Protein-Dipstick 15 mg/dl (Negative); Urine Bilirubin Dipstick Negative (Negative); Urine Clarity Sl. Cloudy (Clear); Urine Urobilinogen Normal (Normal)
[2024-03-22 17:34] LABS: Squamous Epithelial Cells - UA 10-25 SEEN /hpf (5-10)
[2024-03-22 17:35] LABS: Bacteria 2+ /hpf (None Seen); Mucous, Urine RARE /hpf (<or=2+); White Blood Cells 0-5 SEEN /hpf (0-5); Yeast-Urine 1+ /hpf (None Seen)
== END | disposition home or self-care (01) ==
LOC: LAB 16:42
PROVIDERS: PCP Internal Medicine; Referring Provider Internal Medicine Medical Oncology; Visit Provider Internal Medicine Medical Oncology
DX: R31.9 Hematuria, unspecified (principal)
CPT/HCPCS: 81001; 88108; 88313

== ENCOUNTER 2024-12-24 17:58 | Emergency (ER) | payer MEDICARE, BC, OTHER, SELFPAY ==
[2024-12-24] VITALS (9 sets, daily range): BP systolic 112–136; BP diastolic 62–81; PULSE 64–75; RESP 12–19; TEMP 36.7–37.1; O2SAT 96–100; BMI 38.5
--- OUTSIDE RECORDS SUMMARY | 2024-12-24 18:19 | XMS RPT_ITS | CCD ---
Author Organization [facility] Care Team Providers Care Clinical Transformation Specialist Name Role Phone DR SHERI HUTCHINS MD Primary Care Physician Chela Serrano PT Unavailable Unavailable Sheri Hutchins MD Primary Care Provider Sheri Hutchins MD Primary Care Provider Dr. Sheri Hutchins Primary Care Provider Dr. Tex Lomeli Attending Provider Dr. Cristóbal Joel Referring Provider Sheri Hutchins MD Primary Care Provider JOANNA DOAN Referring Unavailable SHERI HUTCHINS Primary Care Unavailable VINCENT FRIEND Attending UnavailSheri Oliva MD Primary Care Provider [place] HISTORY CARD CLERK.PEDIATRIC CLINICAL NURSE SPECIALIST, Marianna Unavailable Jeet HISTORY CARD CLERK.REPAIR TECHNICIAN, Jack Unavailable Jeet HISTORY CARD CLERK.REPAIR TECHNICIAN, Jack Unavailable Jeet HISTORY CARD CLERK.REPAIR TECHNICIAN, Jack Unavailable Dr. Sheri Hutchins MD Primary Care Provider Dr. Sheri Hutchins MD Referring Provider Chelo Camejo Attending Provider Beth Quiñones Attending Provider Dr. Abhi Ellison MD Attending Provider Dr. Abhi Ellison MD Referring Provider Abhi Ellison Attending Unavailable Talampas, Sheri D Primary Care Unavailable Talampas, Sheri D Referring Unavailable Shelli Hernandez Attending Unavailable Talampas, Sheri D Primary Care Unavailable Abhi Ellison Attending Unavailable Talampas, Sheri D Primary Care Unavailable Talampas, Sheri D Referring Unavailable Talampas, Sheri D Primary Care Unavailable Adonis Loznao Attending Unavailable Talampas, Sheri D Primary Care Unavailable Humza, Teddy Consulting Unavailable Humza, Teddy Admitting Unavailable Humza, Teddy Attending Unavailable Koram, Karlie Lianna Referring Unavailable Shaw, Beth Attending Unavailable Gilbert, Vicente Consulting Unavailable Koram, Karlie Lianna Attending Unavailable Talampas, Sheri D Primary Care Unavailable Humza, Teddy Admitting Unavailable Humza, Teddy Consulting Unavailable Koram, Karlie Lianna Consulting Unavailable Koram, Karlie Lianna Referring Unavailable Colin, Beth Attending Unavailable Abhi Ellison Attending Unavailable Talampas, Sheri D Primary Care Unavailable Dheeraj Bloom Attending Unavailable Talampas, Sheri D Primary Care Unavailable Dima Augustine Attending Unavailable Talampas, Sheri D Primary Care Unavailable Talampas, Sheri D Primary Care Unavailable Talampas, Sheri D Referring Unavailable Beth Shaw Attending Unavailable Geraldine, Vicente Consulting Unavailable Koram, Karlie Lianna Attending Unavailable Talampas, Sheri D Primary Care Unavailable Humza, Teddy Admitting Unavailable Humza, Teddy Consulting Unavailable Abhi Ellison Attending Unavailable Talampas, Sheri D Primary Care Unavailable Abhi Ellison Referring Unavailable Dima Augustine Attending Unavailable Talampas, Sheri D Primary Care Unavailable Talampas, Sheri D Primary Care Unavailable Abhi Ellison Attending Unavailable Abhi Ellison Referring Unavailable Talampas, Sheri D Primary Care Unavailable Talampas, Sheri D Referring Unavailable Abhi Ellison Attending Unavailable Abhi Ellison Attending Unavailable Talampas, Sheri D Primary Care Unavailable Talampas, Sheri D Referring Unavailable Talampas, Sheri D Primary Care Unavailable Beth Shaw Attending Unavailable Talampas, Sheri D Referring Unavailable Chelo Beckman NP Attending Unavailable Talampas, Sheri D Primary Care Unavailable Talampas, Sheri D Referring Unavailable [place] HISTORY CARD CLERK.PEDIATRIC CLINICAL NURSE SPECIALIST, Marianna Unavailable [phone] TALAMPAS, SHERI D Primary Care Unavailable ALXEANDREA ACE Attending Unavailable TALAMPAS, SHERI D Primary Care Unavailable TALAMPAS, SHERI D Referring Unavailable TALAMPAS, SHERI D Primary Care Unavailable TALAMPAS, SHERI D Referring Unavailable TALAMPAS, SHERI D Attending Unavailable TALAMPAS, SHERI D Primary Care Unavailable TALAMPAS, SHERI D Referring Unavailable ROMMEL WIN Attending Unavailable TALAMPAS, SHERI D Primary Care Unavailable TALAMPAS, SHERI D Primary Care Unavailable ROMMEL WIN Attending Unavailable TALAMPAS, SHERI D Referring Unavailable TALAMPAS, SHERI D Referring Unavailable QUIRINOROMMEL Attending Unavailable TALAMPAS, SHERI D Primary Care Unavailable TALAMPAS, SHERI D Primary Care Unavailable MCKENZIE ZABALA Attending Unavailable TALAMPAS, SHERI D Primary Care Unavailable TALAMPAS, SHERI D Referring Unavailable TALAMPAS, SHERI D Primary Care Unavailable TALAMPAS, SHERI D Referring Unavailable TALAMPAS, SHERI D Primary Care Unavailable JACK LAWLER Attending Unavailable TALAMPAS, SHERI D Primary Care Unavailable JACK LAWLER Referring Unavailable MCKENZIE ZABALA Attending Unavailable TALAMPAS, SHERI D Primary Care Unavailable TALAMPAS, SHERI D Attending Unavailable TALAMPAS, SHERI D Primary Care Unavailable TALAMPAS, SHERI D Primary Care Unavailable MARIANNA FINNEGAN Attending Unavailable TALAMPAS, SHERI D Attending Unavailable TALAMPAS, SHERI D Primary Care Unavailable SELF Referring Unavailable TALAMPAS, SHERI D Primary Care Unavailable TALAMPAS, SHERI D Attending Unavailable TALAMPAS, SHERI D Primary Care Unavailable TALAMPAS, SHERI D Referring Unavailable TALAMPAS, SHERI D Referring Unavailable TALAMPAS, SHERI D Primary Care Unavailable Allergies Allergy Classification Reported Allergen(s) Allergy Type Date of Onset Reaction(s) Facility (20 sources) Amoxicillin; Translations: [amoxicillin] Drug Allergy 03-05-20 05 GI Upset [facility] (2 sources) Chocolate Food allergy migraine [facility] (20 sources) Codeine; Translations: [codeine] Drug Allergy 03-05-20 05 Headache, Other [facility] (20 sources) Etodolac; Translations: [etodolac] Drug Allergy 03-26-20 05 Intolerance [facility] (7 sources) fluticasone; Translations: [fluticasone nasal] Drug Allergy 07-25-19 09 Other, headache [facility] (20 sources) lansoprazole; Translations: [lansoprazole] Drug Allergy 03-05-20 05 Nausea and vomiting, Unknown [facility] (20 sources) LORazepam; Translations: [lorazepam] Drug Allergy 01-09-20 05 Intolerance [facility] (20 sources) miSOPROStol; Translations: [misoprostol] Drug Allergy 03-26-20 05 Diarrhea [facility] (20 sources) NITROFURANTOIN, MACROCRYSTALS / Nitrofurantoin, Monohydrate; Translations: [nitrofurantoin] Drug Allergy 05-30-19 06 [facility] (20 sources) topiramate; Translations: [topiramate] Drug Allergy 07-26-19 10 GI Upset [facility] (20 sources) Adhesive agent; Translations: [ADHESIVE] Drug Intolerance 12-18-19 13 Rash [facility] Work Phone: (20 sources) fluticasone Drug Allergy 07-25-19 09 [facility] Work Phone: (20 sources) lubiprostone; Translations: [LUBIPROSTONE] Drug Allergy 11-06-19 12 GI Upset [facility] (3 sources) Nitrofurantoin Drug Allergy 01-15-20 16 Nausea [facility] (4 sources) nitrofurantoin macrocrystalline; Translations: [nitrofurantoin macrocrystalline] Propensity to adverse reactions 01-15-20 16 Nausea [facility] (2 sources) NITROFURANTOIN MONOHYD/M-CRYST; Translations: [NITROFURANTOIN MONOHYD/M-CRYST] Propensity to adverse reactions to drug (disorder) 05-30-19 [facility] (1 source) Amoxicillin Drug Allergy 09-23-19 [facility] (1 source) Codeine Drug Allergy 09-23-19 [facility] (1 source) Etodolac Drug Allergy 09-23-19 [facility] (1 source) fluticasone Drug Allergy 09-23-19 [facility] (1 source) lansoprazole Drug Allergy 09-23-19 [facility] (1 source) LORazepam Drug Allergy 09-23-19 [facility] (1 source) lubiprostone Drug Allergy 09-23-19 [facility] (1 source) miSOPROStol Drug Allergy 09-23-19 [facility] (1 source) Nitrofurantoin Drug Allergy 09-23-19 [facility] (1 source) topiramate Drug Allergy 09-23-19 [facility] Medications Current Medications Medication Drug Class(es) Dates Sig (Normalized) Sig (Original) acetaminophen 1000 mg oral tablet (1 source) Start: 05-29-2021 take 1 tablet by mouth once daily Tylenol Dose : 1,000 mg = 2 tab(s), Oral, TID, not to exceed 3000 mg/day, 0 Refill(s) Start Date: 05/29/21 Status: Ordered apixaban 2.5 mg oral tablet (20 sources) Factor Xa Inhibitor Start: 11-03-2024 take 1 tablet by mouth twice daily apixaban (ELIQUIS) 2.5 mg tab(s) Indications: Recurrent deep vein thrombosis (DVT) (HCC) Take 1 tablet by mouth two times a day. 180 tablet 3 11/03/2024 Active Start: 02-16-2024 End: 11-03-2024 take 1 tablet by mouth twice daily apixaban (ELIQUIS) 5 mg tab(s) Indications: Acute deep vein thrombosis (DVT) of other specified vein of left lower extremity (HCC) Take 1 tablet by mouth two times a day. To start after the starter pack 60 tablet 5 02/16/2024 11/03/2024 Discontinued Start: 02-14-2024 End: 02-24-2024 take 2 tablets by mouth twice daily, then take 1 tablet by mouth twice daily Apixaban (Eliquis Dvt-Pe Treat 30d Start) 5 mg (74 tabs) tablets,dose pack Discontinued 5 mg PO TWICE A DAY February 14, 2024 12:00am February 24, 2024 2:06pm Take 10 mg (2 tabs) twice daily for 7 days, then take 5 mg (1 tab) twice daily for 23 days. End: 11-03-2024 take 2 tablets by mouth twice daily ELIQUIS DVT-PE TREAT 30D START 5 mg (74 tabs) Take 2 tablets by mouth two times a day. 11/03/2024 Discontinued take 2 tablets by mo uth twice daily ELIQUIS DVT-PE TREAT 30D START 5 mg (74 tabs) Take 2 tablets by mouth two times a day. Active aspirin 81 mg chewable tablet (20 sources) Platelet Aggregation Inhibitor, Nonsteroidal Anti-inflammatory Drug Start: 03-15-2024 take 2 tablets by mouth once daily Aspirin 81 mg tablet,chewable Active 162 mg PO daily March 15, 2024 1:00am Start: 05-20-2019 End: 09-26-2024 aspirin(ADULT ASPIRIN EC LOW STRENGTH 81 MG TAB, DELAYED RELEASE) Take by mouth twice daily. 0 05/20/2019 09/26/2024 Discontinued Start: 01-02-2016 aspirin 81 mg oral delayed release tablet Dose : 81 mg = 1 tab(s), Oral, BID, # 30 tab(s), 0 Refill(s) Start Date: 01/02/16 Status: Ordered Start: 04-18-2014 End: 02-23-2024 Aspirin 81 MG tablet Discont inued 325 mg PO DAILY@799April 18, 2014 1:00am February 23, 2024 7:10pm Start: 04-18-2014 take 325 mg by mouth once daily Aspirin Active 325 MG PO DAILY@799April 18, 2014 1:00am Comment on above: Take by mouth twice daily. atenolol 50 mg oral tablet (3 sources) beta-Adrenergic Ana Laura Start: 04-18-20 take 1 tablet by mouth once daily Atenolol 50 MG tablet Active 50 mg PO DAILY April 18, 2014 1:00am azithromycin 250 mg oral tablet (2 sources) Macrolide Antimicrobial Start: 09-27-19 End: 10-02-19 take 2 tablets by mouth once daily, then take 1 tablet by mouth once daily at mealtime azithromycin (ZITHROMAX) 250 mg tablet Indications: Sinobronchitis Take 2 tablets by mouth once daily for 1 day, THEN 1 tablet once daily for 4 days. Take with food. 6 tablet 09/26/2024 10/01/2024 Active Start: 04-29-2023 End: 05-04-2023 take 2 tablets by mouth once daily, then take 1 tablet by mouth once daily azithromycin (ZITHROMAX) 250 mg tablet Take 2 tablets by mouth once daily for 1 day, THEN 1 tablet once daily for 4 days. 6 tablet 0 04/29/2023 05/04/2023 Active Comment on above: Take 2 tablets by mo uth once daily for 1 day, THEN 1 tablet once daily for 4 days. Cx-X3-Ufv-Zinc-Mandrel Cleaner-M ang-[place] (Caltrate 600+D3+Min Chew Tab) 1 EACH tablet,chewable (2 sources) Start: 04-18-2014 Zx-N9-Kvh-Zinc-Mandrel Cleaner- Zuly-[place] (Caltrate 600+D3+Min Chew Tab) 1 EACH tablet,chewable Active 1 EACH PO DAILY April 18, 2014 1:00am Tn-X8-Koa-Zinc-Mandrel Cleaner-M ang-[place] (Caltrate 600-D Plus Minerals) 1 EACH tablet,chewable (1 source) Start: 04-18-2014 take 1 tablet by mouth once daily Jw-U7-Pac-Zinc-Mandrel Cleaner- Zuly[place] (Caltrate 600-D Plus Minerals) 1 EACH tablet,chewable Active 1 NMA PO DAILY April 18, 2014 1:00am Calcium Carbonate (2 sources) Start: 01-02-2016 take 1 tablet by mouth twice daily Caltrate 600 + D Dose = 1 tab(s), Oral, BID, 0 Refill(s) Start Date: 01/02/16 Status: Ordered CALCIUM CARBONATE/VITAMIN D2 (CALCIUM + VITAMIN D ORAL) (20 sources) take 1000 mg by mouth once daily CALCIUM CARBONATE/VITAMIN D2 (CALCIUM + VITAMIN D ORAL) Take by mouth once daily. Gummies, calcium 1000 mg and vit d 1600 IU Active take 1000 mg by mouth once daily CALCIUM CARBONATE/VITAMIN D2 (CALCIUM + VITAMIN D ORAL) Take by mouth once daily. Gummies, calcium 1000 mg and vit d 1600 IU 0 Active Comment on above: Take by mouth once d aily. Gummies, calcium 1000 mg and vit d 1600 IU carvedilol 12.5 mg oral tablet (20 sources) alpha-Adrenergic Ana Laura, beta-Adrenergic Ana Laura Start: End: take 1 tablet by mouth twice daily carvedilol (COREG) 12.5 mg tablet Indications: Essential hypertension Take 1 tablet by mouth two times a day. 180 tablet 3 11/03/2024 Active Comment on above: Take 1 tablet by leno th twice daily. Take 1 tablet by leno th two times a day. cephalexin 250 mg oral capsule (20 sources) Cephalosporin Antibacterial Start: End: take 1 capsule by mouth once daily cephALEXin (KEFLEX) 250 mg capsule Indications: Other specified disorders of urethra , Disorder of kidney and ureter Take 1 capsule by mouth once daily. 90 capsule 3 11/03/2024 Active Start: 01-06-2022 End: 01-16-2022 take 1 capsule by mouth four times daily cephALEXin (KEFLEX) 500 mg capsule Take 1 capsule by mouth four times daily for 10 days. 40 capsule 0 01/06/2022 01/16/2022 Active Start: 01-15-2016 End: 02-23-2024 take 1 capsule by mouth every six hours Cephalexin 500 mg capsule Discontinued 500 mg PO EVERY 6 HOURS 28 7 February 07, 2024 12:00am February 23, 2024 7:11pm Start: 12-17-2015 End: 02-16-2024 take 1 capsule by mouth once daily cephALEXin (KEFLEX) 250 mg capsule Indications: Other specified disorders of urethra , Disorder of kidney and ureter Take 1 capsule by mouth once daily. 90 capsule 3 05/16/2024 Active Comment on above: Take 1 capsule by mo ut once daily. Take 1 capsule by mo ut four times daily for 10 days. Cranberry preparation (20 sources) Non-Standardized Food Allergenic Extract, Non-Standardized Plant Allergenic Extract Start: 08-27-2020 take 1 capsule by mouth twice daily cranberry oral capsule Dose = 1 cap(s), Oral, BID, 0 Refill(s) Start Date: 08/27/20 Status: Ordered Start: 05-20-2019 take 1 capsule by mo ut twice daily Cranberry 500 mg cap Indications: Other specified disorders of urethra , Disorder of kidney and ureter Take 1 capsule by mouth twice daily. 05/20/2019 Active Start: 05-20-2019 take 1 capsule by mo uth twice daily Cranberry 500 mg cap Indications: Other specified disorders of urethra , Disorder of kidney and ureter Take 1 capsule by mouth twice daily. 0 05/20/2019 Active Start: 12-17-2015 take 1 capsule by mo uth once daily Cranberry Extract 200 MG capsule Active 150 mg PO DAILY December 17, 2015 12:00am Start: 12-17-2015 take 150 mg by mouth once jocelyn y Cranberry Extract Active 150 MG PO DAILY December 17, 2015 12:00am Comment on above: Take 1 capsule by mo ut twice daily. 12 hr dextromethorphan polistirex 6 mg/ml extended release suspension (1 source) Uncompetitive V-mifwdx-U-aspartate Receptor Antagonist, Sigma-1 Agonist Start: End: take 10 mL by mouth twice daily dextromethorphan polistirex ER (DELSYM) 30 mg/5 mL oral liquid Indications: Sinobronchitis Take 10 mL by mouth two times a day for 14 days. 280 mL 09/26/2024 10/10/2024 Active doxycycline hyclate 100 mg oral tablet (4 sources) Tetracycline-class Drug Start: 024 End: take 1 tablet by mouth twice daily doxycycline (VIBRA-TABS) 100 mg tablet Take 1 tablet by mouth two times a day for 7 days. 14 tablet 0 10/31/2023 11/07/2023 Active Start: 04-17-2023 End: 04-24-2023 take 1 tablet by mouth twice daily doxycycline (VIBRA-TABS) 100 mg tablet Take 1 tablet by mouth two times a day for 7 days. 14 tablet 0 04/17/2023 04/24/2023 Active Comment on above: [facility]. Elderberry preparation (2 sources) Start: 01-07-202 2 take 1 tablet by mouth once daily elderberry 1 TAB, Oral, Daily, 0 Refill(s) Start Date: 05/17/21 Status: Ordered fluconazole 150 mg oral tablet (1 source) Azole Antifungal Start: 3 End: 3 take 1 tablet by mouth once daily fluconazole (DIFLUCAN) 150 mg tablet Take 1 tablet by mouth once daily for 1 day. 1 tablet 0 04/17/2023 04/18/2023 Active Comment on above: Take 1 tablet by leno th once daily for 1 day. herbal/nutritional product (4 sources) Start: 2 take 1 tablet by mouth once daily herbal/nutritional product 1 TAB, Oral, Daily, TART KEEN, 0 Refill(s) Start Date: 05/17/21 Status: Ordered Start: 05-17-2021 take 1 tablet by leno th once daily herbal/nutritional product 1 TAB, Oral, Daily, RELIEF FACTOR, 0 Refill(s) Start Date: 05/17/21 Status: Ordered L. acidophilus-L. rhamnosus (PROBIOTIC) 15 billion cell cap (20 sources) Start: 08-08-2016 take 1 scoop(s) by mouth once daily L. acidophilus-L. rhamnosus (PROBIOTIC) 15 billion cell cap Take 1 scoop by mouth once daily. 0 08/08/2016 Active Comment on above: Take 1 scoop by mout h once daily. lactobacillus acidophilus [id number] unt oral capsule (2 sources) Start: 12-13-2018 take 1 capsule by mouth once daily Acidophilus Probiotic Blend oral capsule See Instructions, 1 cap(s) Oral qDay, 0 Refill(s) Start Date: 12/13/18 Status: Ordered lisinopril 20 mg oral tablet (20 sources) Angiotensin Converting Enzyme Inhibitor Start: 12-13-2018 End: 11-03-2024 take 1 tablet by mouth once daily lisinopril (ZESTRIL) 20 mg tablet Indications: Essential hypertension Take 1 tablet by mouth once daily. 90 tablet 3 11/03/2024 Active Start: 04-18-2014 take 4 tablets by mo uth once daily Lisinopril 5 MG tablet Active 20 mg PO DAILY April 18, 2014 1:00am Start: 04-18-2014 take 5 mg by mouth once daily Lisinopril Active 5 MG PO DAILY April 18, 2014 1:00am Comment on above: Take 1 tablet by leno th once daily. liver supplement (1 source) Start: liver supplement Active 1 NMA PO DAILY March 15, 2024 1:00am 24 hr metFORMIN hydrochloride 500 mg extended release oral tablet (20 sources) Biguanide Start: take 1 tablet by mouth twice daily Metformin 500 mg tablet extended release 24 hr Active 500 mg PO TWICE A DAY February 23, 2024 12:00am Start: 05-24-2021 End: 11-03-2024 take 1 tablet by mouth once daily at breakfast metFORMIN ER (GLUCOPHAGE XR) 500 mg 24 hr tablet Indications: Controlled type 2 diabetes mellitus without complication, without long-term current use of insulin (HCC) Take 1 tablet by mouth daily with breakfast. 90 tablet 3 11/03/2024 Active Start: 05-17-2021 MetFORMIN (Eqv -Glucophage XR) 500 mg oral tablet, EXTENDED RELEASE Dose : 500 mg = 1 tab(s), Oral, qDay, # 30 tab(s), 0 Refill(s) Start Date: 05/17/21 Status: Ordered Comment on above: Take 1 tablet by leno th daily with breakfast. Take 2 tablets by mo uth daily with breakfast. morphine sulfate 15 mg extended release oral tablet (20 sources) Opioid Agonist Start: 02-23-2024 Morphine 15 mg tablet extended release Active 15 mg PO Q12 February 23, 2024 12:00am Start: 12-13-2018 take 1 tablet by leno th every twelve hours, then take 1 tablet by mouth every twelve hours morphine 15 mg/8 to 12 hr oral tablet, extended release Dose : 15 mg = 1 tab(s), Oral, q12h, 0 Refill(s) Start Date: 12/13/18 Status: Ordered Start: 12-17-2015 End: 02-23-2024 take 1 tablet by mouth three times daily Morphine (Morphine Ir) 30 MG tablet Discontinued 30 mg PO THREE TIMES A DAY December 17, 2015 12:00am February 23, 2024 7:18pm take 1 tablet by leno th twice daily morphine IR 15 mg tablet Take 15 mg by mouth twice daily. Active Comment on above: Take 15 mg by mouth twice daily. Multivitamin preparation (2 sources) Start: 01-02-2016 take 1 tablet by mouth once daily Multivitamin Dose = 1 tab(s), Oral, Daily, 0 Refill(s) Start Date: 01/02/16 Status: Ordered Multivitamin With Folic Acid (Thera) 1 TABLET tablet (3 sources) Start: 12-17-2015 take 1 tablet by mouth once daily Multivitamin With Folic Acid (Thera) 1 TABLET tablet Active 1 {tbl} PO DAILY December 17, 2015 12:00am Start: 12-17-2015 take 1 tablet by leno th once daily Multivitamin With Folic Acid (Thera) 1 TABLET tablet Active 1 TABLET PO DAILY December 17, 2015 12:00am ondansetron 8 mg oral tablet (20 sources) Serotonin-3 Receptor Antagonist Start: 11-19-2022 End: 01-25-2024 take 1 tablet by mouth every eight hours as needed ondansetron (ZOFRAN) 8 mg tablet Take 1 tablet by mouth every 8 hours as needed for nausea/vomiting. 5 tablet 01/25/2024 Active Comment on above: Take 1 tablet by leno th every 8 hours as needed for nausea/vomiting. oxyCODONE hydrochloride 10 mg oral tablet (20 sources) Opioid Agonist Start: 02-23-2024 take 1 tablet by mouth twice daily as needed for pain Oxycodone 10 mg tablet Active 10 mg PO TWICE DAILY NEEDED as needed for pain February 23, 2024 12:00am Start: 08-27-2020 oxyCODONE 10 m g oral tablet ( IMMEDIATE release ) Dose : 10 mg = 1 tab(s), Oral, BID, PRN for pain, # 12 tab(s), 0 Refill(s), 96.8 Start Date: 08/27/20 Status: Ordered Start: 04-18-2014 End: 03-25-2024 take 1 tablet by mouth twice daily Oxycodone (Oxycontin) 15 MG tablet Discontinued 15 mg PO TWICE A DAY April 18, 2014 1:00am March 25, 2024 3:15pm Start: 04-18-2014 take 1 tablet by leno th every four hours Oxycodone (Oxycontin) 15 MG tablet Active 15 MG PO Q4H April 18, 2014 1:00am take 1 tablet by leno th every twelve hours, then take 1 tablet by mouth every twelve hours oxyCODONE ER (OXYCONTIN) 10 mg 12 hr tablet Take 10 mg by mouth every 12 hours. Active Comment on above: Take 10 mg by mouth every 12 hours. pantoprazole 40 mg delayed release oral tablet (20 sources) Proton Pump Inhibitor Start: End: take 1 tablet by mouth once daily pantoprazole DR (PROTONIX) 40 mg tablet Indications: GERD without esophagitis Take 1 tablet by mouth once daily. 90 tablet 3 11/03/2024 Active Comment on above: Take 1 tablet by leno th once daily. perfluorohexyloctane , PF, (MIEBO, PF,) 100 % drop (6 sources) Start: take 1 drop(s) into the eye(s) four times daily perfluorohexyloctane, PF, (MIEBO, PF,) 100 % drop Indications: Dry eye syndrome of both eyes Use 1 Drop in eyes four times daily. 3 mL 3 06/22/2024 Active rivaroxaban 10 mg oral tablet (1 source) Factor Xa Inhibitor Start: Xarelto 10 mg oral tablet Dose : 10 mg = 1 tab(s), Oral, qDay, Take daily for 2 weeks postoperatively for DVT prophylaxis, # 13 tab(s), 0 Refill(s), Pharmacy: [id number], 160, cm, 05/28/21 16:18:00 EST, Height, 93.8, kg, 05/28/21 16:18:00 EST, Dosing Weight Start Date: 05/29/21 Status: Ordered rosuvastatin calcium 5 mg oral tablet (20 sources) HMG-CoA Reductase Inhibitor Start: End: take 1 tablet by mouth once daily rosuvastatin (CRESTOR) 5 mg tablet Indications: Mixed hyperlipidemia Take 1 tablet by mouth once daily. 90 tablet 3 11/03/2024 Active Comment on above: Take 1 tablet by leno th once daily. therapeutic multivitamin (THERA VITAMIN) tablet (20 sources) Start: 015 take 1 tablet by mouth once daily therapeutic multivitamin (THERA VITAMIN) tablet Take 1 tablet by mouth once daily. 0 11/15/2014 Active Comment on above: Take 1 tablet by leno th once daily. 24 hr venlafaxine 75 mg extended release oral capsule (20 sources) Serotonin and Norepinephrine Reuptake Inhibitor Start: 024 End: 025 take 1 capsule by mouth twice daily venlafaxine ER (EFFEXOR XR) 75 mg 24 hr capsule Indications: Reactive depression Take 1 capsule by mouth two times a day. 60 capsule 11 11/03/2024 Active Start: 04-18-2014 End: 02-23-2024 venlafaxine (EFFEXOR) 75 mg tablet Indications: Reactive depression Take one(1) tablet twice daily as directed. 60 tablet 11 11/19/2023 01/23/2024 Discontinued Comment on above: Take one(1) tablet t wice daily as directed. Vit P-Qweacu-Lmjisd-Grape [id number] mg cap (20 sources) Start: 08-29-2014 Vit E-Rlzrxu-Laiqpn-Grape [id number] mg cap Take by mouth. 0 08/29/2014 Active Comment on above: Take by mouth. Completed/Discontinued Medications Medication Drug Class(es) Dates Sig (Normalized) Sig (Original) [id number] actuat albuterol 0.09 mg/actuat metered dose inhaler (20 sources) beta2-Adrenergic Agonist Start: 04-17-2023 End: 11-03-2024 take 2 puff(s) by inhalation every six hours as needed for cough albuterol HFA (PROAIR HFA) 90 mcg/actuation inhaler Indications: Sinobronchitis Inhale 2 puffs as instructed every 6 hours as needed for wheezing/shortness of breath (cough). 1 each 09/26/2024 11/03/2024 Discontinued (Course of therapy completed) Comment on above: Inhale 2 Puffs as in structed every 6 hours as needed. benzonatate 100 mg oral capsule (20 sources) Non-narcotic Antitussive Start: 04-17-2023 End: 09-26-2024 take 2 capsules by mouth every eight hours as needed benzonatate (TESSALON PERLES) 100 mg capsule Take 2 capsules by mouth three times a day as needed. 30 capsule 04/17/2023 09/26/2024 Discontinued Comment on above: Take 2 capsules by m out three times a day as needed. cloNIDine hydrochloride 0.2 mg oral tablet (3 sources) Central alpha-2 Adrenergic Agonist Start: 12-17-2015 End: 02-23-2024 take 1 tablet by mouth once daily Clonidine Hcl 0.2 MG tablet Discontinued 0.2 mg PO DAILY December 17, 2015 12:00am February 23, 2024 7:11pm Equate Sleep Aid (3 sources) Start: 12-17-2015 End: 02-23-2024 take 50 mg by mouth at bedtime as needed for sleep Equate Sleep Aid Discontinued 50 mg PO AT BEDTIME NEEDED as needed for Sleep December 17, 2015 12:00am February 23, 2024 7:11pm Start: 12-17-2015 take 50 mg by mouth at bedtime as needed Equate Sleep Aid Active 50 MG PO AT BEDTIME NEEDED December 17, 2015 12:00am Xjieg-Vpseq-5-Omp-Svs-Jwjrpw (Krill Oil 300 Mg Softgel) 1 EACH capsule (3 sources) Start: 12-17-2015 End: 02-23-2024 take 1 capsule by mouth once daily Zveow-Yumwc-1-Qyq-Xiz-Jfjodp (Krill Oil 300 Mg Softgel) 1 EACH capsule Discontinued 1 NMA PO DAILY December 17, 2015 12:00am February 23, 2024 7:12pm Start: 12-17-2015 take 1 capsule by [facility] once daily Gqhvr-Dqrdu-6-Xhd-Vnl-Nlviuz (Krill Oil 300 Mg Softgel) 1 EACH capsule Active 1 EACH PO DAILY December 17, 2015 12:00am predniSONE 10 mg oral tablet (6 sources) Start: 09-26-2024 End: 11-03-2024 predniSONE (DELTASONE) 10 mg tablet Indications: Sinobronchitis Take 3 tablets for 3 days, 2 tablets for 3 days then one tablet for three days then discontinue 18 tablet 09/26/2024 11/03/2024 Discontinued (Course of therapy completed) Start: 09-21-2024 End: 09-26-2024 take 1 tablet by mouth twice daily predniSONE (DELTASONE) 20 mg tablet Indications: Acute laryngitis Take 1 tablet by mouth two times a day for 5 days. 10 tablet 09/21/2024 09/26/2024 Discontinued Start: 10-31-2023 End: 11-05-2023 take 4 tablets by mouth once daily predniSONE (DELTASONE) 10 mg tablet Take 4 tablets by mouth once daily for 5 days. 20 tablet 0 10/31/2023 11/05/2023 Active simvastatin 20 mg oral tablet (3 sources) HMG-CoA Reductase Inhibitor Start: 04-18-2014 End: 02-23-2024 take 1 tablet by mouth at bedtime Simvastatin 20 MG tablet Discontinued 20 mg PO AT BEDTIME April 18, 2014 1:00am February 23, 2024 7:14pm Vit C-Tfruab-Tupenl-Gra pe (TART KEEN) [id number] mg cap (10 sources) Start: 08-29-2014 Vit Z-Elmoqv-Lqlchp-Gra pe (TART KEEN) [id number] mg cap Take by mouth. 0 08/29/2014 Active Comment on above: Take by mouth. Problems Active Problems Problem Classification Problem Date Documented Da te Episodic/Chronic Acute myocardial infarction (20 sources) Acute myocardial infarction of inferolateral wall; Translations: [ST elevation (STEMI) myocardial infarction involving other coronary artery of inferior wall] Onset: 4 02-17-2024 Chronic Cardiac dysrhythmias (20 sources) EKG: ventricular tachycardia; Translations: [Ventricular tachycardia] Onset: 6 Resolved: 6 09-07-2020 Chronic Chronic kidney disease (20 sources) Chronic kidney disease; Translations: [Chronic kidney disease, unspecified] Onset: 7 Resolved: 1 12-24-2016 Chronic Chronic obstructive pulmonary disease and bronchiectasis (2 sources) Bronchitis; Translations: [Bronchitis, not specified as acute or chronic] Onset: 5 04-17-2023 Episodic Coagulation and hemorrhagic disorders (2 sources) Disorder of hemostatic system; Translations: [Coagulation defect, unspecified] Onset: 4 02-16-2024 Chronic Coronary atherosclerosis and other heart disease (20 sources) History of myocardial infarction; Translations: [Old myocardial infarction] Onset: 1 12-13-2020 Chronic Deficiency and other anemia (1 source) Anemia; Translations: [Anemia, unspecified] 03-11-2024 Episodic Diabetes mellitus without complication (20 sources) Type 2 diabetes mellitus without complication; Translations: [Type 2 diabetes mellitus without complications] Onset: 7 Chronic Diseases of white blood cells (18 sources) Leukocytosis; Translations: [Elevated white blood cell count, unspecified] Onset: 2 Chronic Disorders of lipid metabolism (20 sources) Hypercholesterolemia; Translations: [Hyperlipidemia] Onset: 8 01-02-2016 Chronic Esophageal disorders (20 sources) Gastroesophageal reflux disease; Translations: [Gastroesophageal reflux disease without esophagitis] Onset: 2 01-02-2016 Chronic Essential hypertension (20 sources) Hypertensive disorder; Translations: [Essential hypertension] Onset: 5 01-02-2016 Chronic Genitourinary symptoms and ill-defined conditions (1 source) Incontinence without sensory awareness; Translations: [Incontinence without sensory awareness] 12-27-2023 Chronic Gout and other crystal arthropathies (20 sources) Gout; Translations: [Gout, unspecified] 02-07-2013 Chronic Mood disorders (20 sources) Reactive depression (situational); Translations: [Major depressive disorder, single episode, unspecified] Onset: 8 Resolved: 3 01-03-2018 Chronic Osteoarthritis (20 sources) Osteoarthritis; Translations: [Unspecified osteoarthritis, unspecified site] Onset: 5 Chronic Other aftercare (1 source) Encounter for adjustment and management of other implanted devices; Translations: [Encounter for adjustment and management of other implanted devices] Onset: 4 Chronic Other aftercare (4 sources) Patient encounter status; Translations: [Other halfway (current) drug therapy] Episodic Other aftercare (1 source) Long-term current use of drug therapy; Translations: [Other terminal press operator (current) drug therapy] 11-19-2023 Episodic Other aftercare (2 sources) Long-term current use of anticoagulant; Translations: [USP (current) use of anticoagulants] 02-20-2024 Episodic Other aftercare (1 source) Other terminal press operator (current) drug therapy; Translations: [Encounter for long-term current use of medication] Onset: 5 Episodic Other circulatory disease (1 source) Inferior vena cava filter in situ; Translations: [Presence of other vascular implants and grafts] 03-11-2024 Chronic Other circulatory disease (2 sources) History of insertion of inferior vena caval filter; Translations: [Presence of other vascular implants and grafts] 03-25-2024 Chronic Other circulatory disease (2 sources) Presence of other vascular implants and grafts; Translations: [Presence of other vascular implants and grafts] Onset: 4 Chronic Other circulatory disease (3 sources) Low blood pressure; Translations: [Hypotension, unspecified] 01-02-2016 Episodic Other connective tissue disease (18 sources) Shoulder joint prosthesis present; Translations: [Presence of left artificial shoulder joint] Onset: 2 Chronic Other connective tissue disease (17 sources) History of operative procedure on shoulder; Translations: [Presence of unspecified artificial shoulder joint] Onset: 9 02-17-2024 Chronic Other connective tissue disease (1 source) History of total knee arthroplasty; Translations: [Presence of left artificial knee joint] 04-25-2024 Chronic Other connective tissue disease (1 source) Presence of left artificial knee joint; Translations: [S/P total knee replacement, left] Onset: 4 Chronic Other connective tissue disease (2 sources) Fibromyositis 01-02-2016 Episodic Other connective tissue disease (20 sources) Muscle pain; Translations: [Myalgia and myositis, unspecified] 02-15-2010 Episodic Other connective tissue disease (1 source) Swelling of left lower limb; Translations: [Other specified soft tissue disorders] 03-11-2024 Episodic Other connective tissue disease (1 source) Pain in lower limb; Translations: [Pain in leg, unspecified] 02-22-2024 Episodic Other diseases of bladder and urethra (20 sources) Disorder of urethra; Translations: [Other specified disorders of urethra] Onset: 6 02-15-2010 Episodic Other diseases of kidney and ureters (20 sources) Disorder of kidney and/or ureter; Translations: [Disorder of kidney and ureter, unspecified] 04-29-2017 Episodic Other eye disorders (3 sources) Tear film insufficiency; Translations: [Dry eye syndrome of bilateral lacrimal glands] 02-17-2024 Episodic Other female genital disorders (1 source) Pruritus of vagina; Translations: [Other specified noninflammatory disorders of vagina] 04-17-2023 Episodic Other gastrointestinal disorders (2 sources) Constipation 01-02-2016 Episodic Other inflammatory condition of skin (1 source) Psoriasis; Translations: [Psoriasis, unspecified] 11-03-2024 Chronic Other lower respiratory disease (1 source) Cough; Translations: [Acute cough] 10-31-2023 Episodic Other lower respiratory disease (1 source) Lower respiratory tract infection; Translations: [Unspecified acute lower respiratory infection] 10-31-2023 Episodic Other lower respiratory disease (3 sources) H/O: bronchitis; Translations: [Personal history of other diseases of the respiratory system] 12-25-2023 Episodic Other lower respiratory disease (1 source) Wheezing; Translations: [Wheezing] 04-17-2023 Episodic Other nervous system disorders (17 sources) Carpal tunnel syndrome; Translations: [Carpal tunnel syndrome, unspecified upper limb] Onset: 5 02-17-2024 Chronic Other nutritional; endocrine; and metabolic disorders (4 sources) Severe obesity; Translations: [Morbid (severe) obesity due to excess calories] Onset: 8 12-13-2020 Chronic Other nutritional; endocrine; and metabolic disorders (8 sources) Obesity; Translations: [Other obesity due to excess calories] Onset: 8 Chronic Other nutritional; endocrine; and metabolic disorders (20 sources) Obesity caused by energy imbalance; Translations: [Other obesity due to excess calories] Onset: 8 10-22-2022 Chronic Other nutritional; endocrine; and metabolic disorders (1 source) Body mass index (BMI) 35.0-35.9, adult; Translations: [Class 2 obesity due to excess calories with body mass index (BMI) of 35.0 to 35.9 in adult, unspecified whether serious comorbidity present] Onset: 5 Chronic Other nutritional; endocrine; and metabolic disorders (1 source) Other obesity due to excess calories; Translations: [Class 2 obesity due to excess calories with body mass index (BMI) of 35.0 to 35.9 in adult, unspecified whether serious comorbidity present] Onset: 5 Chronic Other nutritional; endocrine; and metabolic disorders (2 sources) Hyperuricemia; Translations: [Hyperuricemia without signs of inflammatory arthritis and tophaceous disease] Episodic Other upper respiratory infections (2 sources) Chronic sinusitis; Translations: [Chronic sinusitis, unspecified] Onset: 5 09-26-2024 Chronic Other upper respiratory infections (2 sources) Acute laryngitis; Translations: [Acute laryngitis] Onset: 5 09-21-2024 Episodic Phlebitis; thrombophlebitis and thromboembolism (20 sources) Deep venous thrombosis; Translations: [Acute embolism and thrombosis of unspecified deep veins of unspecified lower extremity] Onset: 5 Resolved: 0 01-02-2016 Episodic Comment on above: Bladder evaluation w as negative. Skin and subcutaneous tissue infections (4 sources) Cellulitis; Translations: [Cellulitis, unspecified] Episodic Spondylosis; intervertebral disc disorders; other back problems (20 sources) Displacement of lumbar intervertebral disc without myelopathy; Translations: [Other intervertebral disc displacement, lumbar region] Onset: 2 03-15-2012 Chronic Spondylosis; intervertebral disc disorders; other back problems (20 sources) Spinal stenosis; Translations: [Thoracic and lumbosacral neuritis] Onset: 6 01-02-2016 Episodic Sprains and strains (1 source) Shoulder strain; Translations: [Strain of unspecified muscle, fascia and tendon at shoulder and upper arm level, left arm, initial encounter] 02-15-2024 Episodic Unclassified (1 source) Class 2 obesity due to excess calories with body mass index (BMI) of 35.0 to 35.9 in adult, unspecified whether serious comorbidity present; Translations: [Class 2 obesity due to excess calories with body mass index (BMI) of 35.0 to 35.9 in adult, unspecified whether serious comorbidity present] Onset: 5 Urinary tract infections (20 sources) Chronic cystitis; Translations: [Other chronic cystitis without hematuria] Onset: 6 02-15-2010 Chronic Viral infection (2 sources) Viral disease; Translations: [Viral infection, unspecified] Onset: 5 09-21-2024 Episodic Past or Other Problems Problem Classification Problem Date Documented Da te Episodic/Chronic Acute and unspecified renal failure (18 sources) Acute renal failure syndrome; Translations: [Acute kidney failure, unspecified] Onset: 02-17-2024 02-17-2024 Episodic Conditions associated with dizziness or vertigo (18 sources) Lightheadedness; Translations: [Dizziness and giddiness] Onset: 02-17-2024 02-17-2024 Episodic Congestive heart failure; nonhypertensive (20 sources) Acute congestive heart failure; Translations: [Heart failure, unspecified] Onset: 09-07-2020 Resolved: 12-13-2020 12-13-2020 Chronic Deficiency and other anemia (1 source) Anemia, unspecified; Translations: [Anemia, unspecified type] Onset: 03-11-2024 Episodic Fluid and electrolyte disorders (18 sources) Dehydration; Translations: [Dehydration] Onset: 02-17-2024 02-17-2024 Episodic Gastritis and duodenitis (20 sources) Acute gastritis; Translations: [Acute gastritis without bleeding] Onset: 12-04-2008 Resolved: 11-28-2015 11-28-2015 Episodic Genitourinary symptoms and ill-defined conditions (20 sources) Increased frequency of urination; Translations: [Frequency of micturition] Onset: 08-07-2008 Resolved: 09-08-2012 04-17-2023 Episodic Malaise and fatigue (1 source) Weakness; Translations: [Weakness] Onset: 03-25-2024 Episodic Nausea and vomiting (20 sources) Nausea; Translations: [Nausea] Resolved: 11-28-2015 11-28-2015 Episodic Other acquired deformities (17 sources) Acquired genu varum; Translations: [Varus deformity, not elsewhere classified, unspecified knee] Onset: 12-09-2018 02-17-2024 Episodic Other aftercare (1 source) Encounter for therapeutic drug level monitoring; Translations: [Encounter for therapeutic drug monitoring] Onset: 02-16-2024 Episodic Other and ill-defined heart disease (20 sources) Takotsubo cardiomyopathy; Translations: [Takotsubo syndrome] Onset: 12-24-2016 Resolved: 12-13-2020 12-13-2020 Chronic Other bone disease and musculoskeletal deformities (20 sources) Other specified disorders of cartilage, unspecified sites; Translations: [Other disorders of bone and cartilage] Onset: 03-15-2008 03-15-2008 Episodic Other connective tissue disease (20 sources) Soft tissue lesion of shoulder region; Translations: [Bursopathy, unspecified] Onset: 03-23-2006 02-15-2010 Episodic Other connective tissue disease (20 sources) Acquired trigger finger; Translations: [Trigger finger, unspecified finger] Onset: 03-15-2012 03-15-2012 Episodic Other connective tissue disease (20 sources) Pain in limb; Translations: [Pain in unspecified limb] Onset: 02-18-2008 Resolved: 11-28-2015 11-28-2015 Episodic Other connective tissue disease (15 sources) Recurrent falls ; Translations: [Repeated falls] Onset: 05-23-2024 04-25-2024 Episodic Other connective tissue disease (1 source) Pain in left leg; Translations: [Pain in left leg] Onset: 04-12-2024 Episodic Other connective tissue disease (2 sources) Other specified soft tissue disorders; Translations: [Other specified soft tissue disorders] Onset: 03-11-2024 Episodic Other connective tissue disease (1 source) Repeated falls; Translations: [Frequent falls] Onset: 05-23-2024 Episodic Other diseases of bladder and urethra (1 source) Other specified disorders of urethra; Translations: [Other specified disorders of urethra] Onset: 05-22-2005 Episodic Other diseases of kidney and ureters (1 source) Disorder of kidney and ureter, unspecified; Translations: [Disorder of kidney and ureter] Onset: 04-29-2017 Episodic Other lower respiratory disease (20 sources) Respiratory obstruction; Translations: [Other specified respiratory disorders] Onset: 08-29-2014 12-17-2020 Episodic Other lower respiratory disease (5 sources) Chronic cough; Translations: [Chronic cough] Onset: 12-25-2023 12-25-2023 Episodic Other lower respiratory disease (1 source) Personal history of other diseases of the respiratory system; Translations: [History of bronchitis] Onset: 12-25-2023 Episodic Other nervous system disorders (17 sources) Skin sensation disturbance; Translations: [Unspecified disturbances of skin sensation] Onset: 11-03-2014 02-17-2024 Episodic Other nervous system disorders (15 sources) Abnormal gait; Translations: [Unsteadiness on feet] Onset: 05-23-2024 04-25-2024 Episodic Other nervous system disorders (1 source) Unsteadiness on feet; Translations: [Gait instability] Onset: 05-23-2024 Episodic Other nutritional; endocrine; and metabolic disorders (20 sources) Metabolic syndrome X; Translations: [Dysmetabolic syndrome X] Onset: 01-08-2005 Resolved: 08-08-2016 08-08-2016 Chronic Other screening for suspected conditions (not mental disorders or infectious disease) (20 sources) Abnormal results of cardiovascular function studies; Translations: [Abnormal result of cardiovascular function study, unspecified] Onset: 01-08-2005 02-15-2010 Episodic Other skin disorders (1 source) Localized swelling, mass and lump, left lower limb; Translations: [Localized swelling, mass and lump, left lower limb] Onset: 02-20-2024 Episodic Residual codes; unclassified (1 source) Localized edema; Translations: [Localized edema] Onset: 03-29-2024 Episodic Superficial injury; contusion (2 sources) Contusion of left knee; Translations: [Contusion of left knee, initial encounter] Onset: 04-25-2024 04-25-2024 Episodic Urinary tract infections (5 sources) Urinary tract infectious disease; Translations: [Acute cystitis] Onset: 03-11-2024 01-02-2016 Episodic Results Test Name Value Interpretation Reference Range Facility [facility] 11-03-2024 CNOV Office Visit (INTMWS) JENNCHAPARRITA ([id number]) 1955 F Date Time Provider Department 11/03/24 11:40 AM SHERI HUTCHINS INTMWS During your visit today, we recorded the following information about you: Pulse Respiration Blood pressure Weight 71/minute 14/minute 100/70 90.1 kg Sheri Hutchins MD 11/03/2024 3:33 PM Signed This note was created using NoteWriter. Subjective Chaparrita Barajas is a 69 year old female. SUBJECTIVE: Krista Barajas is a 69-year-old female with a history of recurrent blood clots, presenting for a medication refill. Krista reports that her certified ophthalmic technologist, Dr. Cazares, recommended a dosage reduction of Eliquis to 2.5 mg BID due to a significant decrease in D-dimer levels. However, she has not yet received a new prescription and is currently breaking down her existing tablets to achieve the lower dose. She inquires about the Watchman device as a potential alternative to lifelong anticoagulation therapy. Krista has a history of recurrent blood clots, primarily in the lower extremities, with the most recent clot originating in the ankle. She denies any upper extremity involvement and does not have an IVC filter. Krista is also requesting refills for her other medications, including carvedilol, cephalexin, lisinopril, Protonix, rosuvastatin, Effexor, and metformin. She notes that her metformin dosage is 1 tablet daily, which has effectively maintained her blood glucose levels between 87-150 mg/dL. She inquires about her most recent HbA1c level. She denies current symptoms of anxiety or depression and denies suicidal ideation. Krista reports a recent weight gain of approximately 10 lbs, which she attributes to a recent course of prednisone. Her current weight is 198 lbs, up from 186 lbs. She is actively working to lose the weight gained during the prednisone treatment. She is taking fruit and vegetable supplements and is trying to incorporate more vegetables and fruits into her diet. She consumes yogurt, specifically acai yogurt, and eats a lot of pecans and walnuts. She is always walking around the house and outside. Krista also mentions that her psoriasis has resolved, but her legs remain erythematous. She is using lotion as needed and inquires about the use of beef tallow for skin care. PAST MEDICAL HISTORY Diagnosis Date Acute gastritis without mention of hemorrhage Chronic airway obstruction, not elsewhere classified 08/29/2014 Depressive disorder, not elsewhere classified Dysmetabolic syndrome X 01/08/2005 Glucose intolerance low HDL Elevated LDL Obesity Esophageal reflux Esophageal reflux Generalized osteoarthrosis, unspecified site Gout Migraine without aura Mixed hyperlipidemia Myalgia and myositis, unspecified Nausea Obesity, unspecified Partially edentulous maxilla has upper denture Phlebitis and thrombophlebitis of unspecified site 01/08/2005 Hx of DVT associated w/ OCP 10/1994, rt leg fracture 1976 Takotsubo cardiomyopathy Thoracic or lumbosacral neuritis or radiculitis, unspecified Unspecified disorder of kidney and ureter Unspecified essential hypertension 01/08/2005 VT (ventricular tachycardia) ([facility]) 01/09/2016 Current Outpatient Medications Medication Sig perfluorohexyloctane , PF, (MIEBO, PF,) 100 % drop Use 1 Drop in eyes four times daily. blood sugar diagnostic (BLOOD GLUCOSE TEST) test strip Test blood sugar(s) one time daily. Dx: Type 2 DM - Controlled E11.9 Insulin: No Cranberry 500 mg cap Take 1 capsule by mouth twice daily. oxyCODONE ER (OXYCONTIN) 10 mg 12 hr tablet Take 10 mg by mouth every 12 hours. morphine IR 15 mg tablet Take 15 mg by mouth twice daily. L. acidophilus-L. rhamnosus (PROBIOTIC) 15 billion cell cap Take 1 scoop by mouth once daily. therapeutic multivitamin (THERA VITAMIN) tablet Take 1 tablet by mouth once daily. Vit I-Bezykn-Gucudv-Grap e 21-597-41-75-20 mg cap Take by mouth. CALCIUM CARBONATE/VITAMIN D2 (CALCIUM + VITAMIN D ORAL) Take by mouth once daily. Gummies, calcium 1000 mg and vit d 1600 IU apixaban (ELIQUIS) 2.5 mg tab(s) Take 1 tablet by mouth two times a day. carvedilol (COREG) 12.5 mg tablet Take 1 tablet by mouth two times a day. cephALEXin (KEFLEX) 250 mg capsule Take 1 capsule by mouth once daily. lisinopril (ZESTRIL) 20 mg tablet Take 1 tablet by mouth once daily. pantoprazole DR (PROTONIX) 40 mg tablet Take 1 tablet by mouth once daily. rosuvastatin (CRESTOR) 5 mg tablet Take 1 tablet by mouth once daily. metFORMIN ER (GLUCOPHAGE XR) 500 mg 24 hr tablet Take 1 tablet by mouth daily with breakfast. venlafaxine ER (EFFEXOR XR) 75 mg 24 hr capsule Take 1 capsule by mouth two times a day. ondansetron (ZOFRAN) 8 mg tablet Take 1 tablet by mouth every 8 hours as needed for nausea/vomiting. (Patient not taking: Reported on 09/26/2024) No current facility-administere d medications for (more content not included)... Normal [facility] CNOVon 09-26-2024 CNOV Office Visit (INTMWS) CHAPARRITA BARAJAS ([id number]) 1955 F Date Time Provider Department 09/26/24 1:40 PM MARIANNA FINNEGAN During your visit today, we recorded the following information about you: Temperature Pulse Respiration Blood pressure 97.4 degrees 74/minute 16/minute 127/77 Weight 87.8 kg Marianna Finnegan APRN.PEDIATRIC CLINICAL NURSE SPECIALIST 09/26/2024 2:40 PM Signed SUBJECTIVE Chaparrita Barajas is a 69 year old female who presents with 7 days of symptoms that are worsening. She was seen in urgent care on September 21, 2024 for nasal congestion right ear pain and cough for 2 days prior to arrival.. She was checked for strep. Negative. Treated with prednisone. Symptoms include: Fever (>=100.4F): No or Chills: No Cough: Yes Shortness of breath: No or Difficulty breathing: No Fatigue: Yes Muscle aches: No Headache: Yes New loss of smell or taste: No Sore throat: Yes Nasal congestion: Yes or Rhinorrhea: Yes Nausea: No or Vomiting: No Diarrhea: No OTC meds/remedies that patient has tried: nothing. She reports that she quit smoking about 31 years ago. Her smoking use included cigarettes. She started smoking about 46 years ago. She has a 7.5 pack-year smoking history. She has never used smokeless tobacco. OBJECTIVE PHYSICAL EXAM: BP 127/77 Pulse 74 Temp 36.3 ?C (97.4 ?F) Resp 16 Wt 87.8 kg (193 lb 9 oz) SpO2 97% BMI 34.51 kg/m? General appearance: tired/ill appearing, alert, cooperative, pleasant, in no acute distress Head: Normocephalic Eyes: conjunctiva/corneas normal Ears: R TM - clear with good landmarks, nl light reflex, L TM - clear with good landmarks, nl light reflex Nose: clear Oropharynx: moist without lesions, mild erythema to GPA, no exudate Neck: supple and small, benign anterior cervical nodes bilaterally Heart: regular rate and rhythm, without murmur Lungs: clear to auscultation, without rales or wheeze, good air exchange ASSESSMENT/PLAN (J32.9, J40) Sinobronchitis (primary encounter diagnosis) ASSESSMENT/PLAN: 1. Sinobronchitis - ICD9: 473.9, 490, ICD10: J32.9, J40 - Will begin treatment with as per antibiotic as written, see orders - Supportive care with plenty of fluids, rest, and analgesia prn. - Follow up in 3-5 days if symptoms persist or worsen. - ALBUTEROL SULFATE HFA 90 MCG/ACTUATION AEROSOL INHALER - DEXTROMETHORPHAN POLISTIREX ER 30 MG/5 ML ORAL SUSP EXT.RELEASE 12HR - PREDNISONE 10 MG TABLET - AZITHROMYCIN 250 MG TABLET Marianna Finnegan APRN.PEDIATRIC CLINICAL NURSE SPECIALIST Medical Decision Making: Problems: Low: Acute, uncomplicated illness or injury Risk: Moderate: Drug management Medical Decision Making Level: 3 - Low Allergies As of Date: 09/26/2024 Noted Allergy Reaction ADHESIVE 12/17/2012 2 - Rash Comments: Bandaids- swelling, rash AMOXICILLIN 03/05/2005 8 - GI Upset ATIVAN (LORAZEPAM) 01/08/2005 5 - Intolerance CODEINE 03/05/2005 CYTOTEC (MISOPROSTOL) 03/26/2005 6 - Diarrhea FLOVENT (FLUTICASONE PROPIONATE) 07/24/2008 Comments: Severe headaches. LODINE (ETODOLAC) 03/26/2005 5 - Intolerance LUBIPROSTONE 11/06/2011 8 - GI Upset MACROBID (NITROFURANTOIN MONOHYD/*05/30/2005 Comments: nausea. ok with plain Macrodantin PREVACID (LANSOPRAZOLE) 03/05/2005 TOPAMAX (TOPIRAMATE) 07/25/2009 8 - GI Upset Comments: Eyes blurry, could not eat for 2 weeks ,gi symptoms Date Reviewed: 09/26/2024 Reviewed by: Chaparrita Saravia LPN - Fully Assessed Reason for Visit: Asthma [11] express care [Other] Primary Visit Diagnosis:Sinobronch itis [J32.9, J40] Order(s):albuterol HFA (PROAIR HFA) 90 mcg/actuation inhalerInhale 2 puffs as instructed every 6 hours as needed for wheezing/shortness of breath (cough).Disp: 1 eachRfl: 0 dextromethorphan polistirex ER (DELSYM) 30 mg/5 mL oral liquidTake 10 mL by mouth two times a day for 14 days.Disp: 280 mLRfl: 0 predniSONE (DELTASONE) 10 mg tabletTake 3 tablets for 3 days, 2 tablets for 3 days then one tablet for three days then discontinueDisp: 18 tabletRfl: 0 azithromycin (ZITHROMAX) 250 mg tabletTake 2 tablets by mouth once daily for 1 day, THEN 1 tablet once daily for 4 days. Take with food.Disp: 6 tabletRfl: 0 Prescriptions as of 09/26/2024 - albuterol HFA (PROAIR HFA) 90 mcg/actuation inhaler Inhale 2 puffs as instructed every 6 hours as needed for wheezing/shortness of breath (cough). - dextromethorphan polistirex ER (DELSYM) 30 mg/5 mL oral liquid Take 10 mL by mouth two times a day for 14 days. - predniSONE (DELTASONE) 10 mg tablet Take 3 tablets for 3 days, 2 tablets for 3 days then one tablet for three days then discontinue - azithromycin (ZITHROMAX) 250 mg tablet Take 2 tablets by mouth once daily for 1 day, THEN 1 tablet once daily for 4 days. Take with food. - perfluorohexyloctane , PF, (MIEBO, PF,) 100 % drop Use 1 Drop in eyes four times daily. - blood sugar diagnostic (BLOOD GLUCOSE TEST) (more content not included)... Normal [facility] Absolute lymphocyte countOrd ered By: Chelo Beckman on 09-22-2024 Lymphocytes Auto (Unsp spec) [#/Vol] 0.92 10*3/uL 0.83-4.51 [facility] Absolute neutrophil countOrd ered By: Chelo Beckman on 09-22-2024 Neutrophils (Bld) [#/Vol] 19.1 10*3/uL High 2.0-7.7 [facility] Anion gap in Serum or Plasma Ordered By: Chelo Beckman on 09-22-2024 Anion gap [Moles/Vol] 15 mmol/L 09-22 [facility] Automated lymphocyte count a s percentage of total leukocytesOrdered By: Cheloania AnthonyKaruna on 09-22-2024 Lymphocytes/100 WBC Auto (Unsp spec) 4.4 % Low 19-41 [facility] BUN/creatinine ratioOrdered By: Chelo Karuna on 09-22-2024 Urea nitrogen/Creatinine [Mass ratio] 27.0 mg/mg High 10-20 [facility] Basophil percentageOrdered B y: Chelo Karuna on 09-22-2024 Basophils/100 WBC (Bld) 0.2 % 0-1 [facility] Bilirubin, totalOrdered By: Cheloania AnthonyKaruna on 09-22-2024 Bilirubin [Mass/Vol] 0.42 mg/dL 0.00-1.30 [facility] CBC W/Diff, Automatedon 09-08 Absolute Lymph 0.92 X10 3/uL Normal 0.83-4.51 [facility] Comment on above: Performed By: #### L 100.0100, L500.4050 #### [facility] [address] [place], [address] Absolute Neut 19.1 X10 3/uL High 2.0-7.7 [facility] Comment on above: Performed By: #### L 100.0100, L500.4050 #### [facility] [address] [place], [address] Basophils/100 WBC (Bld) 0.2 % Normal 0-1 [facility] Comment on above: Performed By: #### L 100.0100, L500.4050 #### [facility] [address] [place], [address] Eosinophils/100 WBC (Bld) 0.0 % Normal 0-5 [facility] Comment on above: Performed By: #### L 100.0100, L500.4050 #### [facility] [address] [place], [address] Erythrocyte distribution width (RBC) [Ratio] 12.4 % Normal 11.6-14.6 [facility] Comment on above: Performed By: #### L 100.0100, L500.4050 #### [facility] [address] [place], [address] Hematocrit (Bld) [Volume fraction] 44.7 % Normal 37-47 [facility] Comment on above: Performed By: #### L 100.0100, L500.4050 #### [facility] [address] [place], [address] Hemoglobin (Bld) [Mass/Vol] 14.3 g/dL Normal 12.0-15.0 [facility] Comment on above: Performed By: #### L 100.0100, L500.4050 #### [facility] [address] [place], [address] IG% 0.700 Normal 0.0-0.9 [facility] Comment on above: Result Comment: IG% - Immature Granulocytes (promyelocytes, myelocytes and metamyelocytes) > 1% indicates that a LEFT SHIFT is Present. Performed By: #### L 100.0100, L500.4050 #### [facility] [address] [place], [address] Lymphocytes/100 WBC (Bld) 4.4 % Low 19-41 [facility] Comment on above: Performed By: #### L 100.0100, L500.4050 #### [facility] [address] [place], [address] MCH (RBC) [Entitic mass] 29.9 pg Normal 27.0-32.0 [facility] Comment on above: Performed By: #### L 100.0100, L500.4050 #### [facility] [address] [place], [address] MCHC (RBC) [Mass/Vol] 32.0 g/dL Normal 32-36 [facility] Comment on above: Performed By: #### L 100.0100, L500.4050 #### [facility] [address] [place], [address] MCV (RBC) [Entitic vol] 93.5 fL Normal 81-99 [facility] Comment on above: Performed By: #### L 100.0100, L500.4050 #### [facility] [address] [place], [address] Monocytes/100 WBC (Bld) 2.8 % Normal 0-10 [facility] Comment on above: Performed By: #### L 100.0100, L500.4050 #### [facility] [address] [place], [address] Neutrophils/100 WBC (Bld) 91.9 % High 47-70 [facility] Comment on above: Performed By: #### L 100.0100, L500.4050 #### [facility] [address] [place], [address] Nucleated RBC (Bld) [#/Vol] 0 10*3/uL Normal 0-5 [facility] Comment on above: Performed By: #### L 100.0100, L500.4050 #### [facility] [address] [place], [address] Platelet mean volume (Bld) [Entitic vol] 9.2 fL Normal 6.2-12.0 [facility] Comment on above: Performed By: #### L 100.0100, L500.4050 #### [facility] [address] [place], [address] Platelets (Bld) [#/Vol] 355 10*3/uL Normal 150-450 [facility] Comment on above: Performed By: #### L 100.0100, L500.4050 #### [facility] [address] [place], [address] RBC (Bld) [#/Vol] 4.78 10*6/uL Normal 4.2-5.4 [facility] Comment on above: Performed By: #### L 100.0100, L500.4050 #### [facility] [address] [place], [address] RDW SD 42.5 fl Normal 35.1-43.9 [facility] Comment on above: Performed By: #### L 100.0100, L500.4050 #### [facility] [address] [place], [address] WBC (Bld) [#/Vol] 20.7 10*3/uL High 4.4-11.0 [facility] Comment on above: Performed By: #### L 100.0100, L500.4050 #### [facility] [address] [place], [address] Carbon dioxide, total [Moles /volume] in Central venous bloodOrdered By: Chelo Beckman on 09-22-2024 CO2 [Moles/Vol] 22.9 mmol/L 21.0-32.0 [facility] Chloride assayOrdered By: Ty ra Beckman on 09-22-2024 Chloride [Moles/Vol] 101 mmol/L 98-108 [facility] Comprehensive Metabolic Prof ilon 09-22-2024 Albumin/Globulin [Mass ratio] 1.2 {ratio} Normal 0.9-2.4 [facility] Comment on above: Performed By: #### L 100.0100, L500.4050 #### [facility] [address] [place], [address] ALK PHOS 111 U/L High 35-104 [facility] Comment on above: Performed By: #### L 100.0100, L500.4050 #### [facility] [address] [place], [address] ALT [Catalytic activity/Vol] 41 U/L High <=34 [facility] Comment on above: Performed By: #### L 100.0100, L500.4050 #### [facility] [address] [place], [address] AST [Catalytic activity/Vol] 33 U/L High <=31 [facility] Comment on above: Performed By: #### L 100.0100, L500.4050 #### [facility] [address] [place], [address] Bilirubin [Mass/Vol] 0.42 mg/dL Normal 0.00-1.30 [facility] Comment on above: Performed By: #### L 100.0100, L500.4050 #### [facility] [address] [place], [address] BUN/CRE 27.0 RATIO High 10-20 [facility] Comment on above: Performed By: #### L 100.0100, L500.4050 #### [facility] [address] [place], [address] Calcium [Mass/Vol] 9.6 mg/dL Normal 7.6-11.0 [facility] Comment on above: Performed By: #### L 100.0100, L500.4050 #### [facility] [address] [place], [address] Chloride [Moles/Vol] 101 mmol/L Normal 98-108 [facility] Comment on above: Performed By: #### L 100.0100, L500.4050 #### [facility] [address] [place], [address] CO2 [Moles/Vol] 22.9 mmol/L Normal 21.0-32.0 [facility] Comment on above: Performed By: #### L 100.0100, L500.4050 #### [facility] [address] [place], [address] Creatinine [Mass/Vol] 1.13 mg/dL Normal 0.70-1.20 [facility] Comment on above: Performed By: #### L 100.0100, L500.4050 #### [facility] [address] [place], [address] ECRCL 46.99 ml/min Low 50-250 [facility] Comment on above: Performed By: #### L 100.0100, L500.4050 #### [facility] [address] [place], [address] GAP 15 Normal 5-15 [facility] Comment on above: Performed By: #### L 100.0100, L500.4050 #### [facility] [address] [place], [address] GFR/1.73 sq M.predicted among non-blacks MDRD (S/P/Bld) [Vol rate/Area] 52 mL/min/{1.73_m2} Low >60 [facility] Comment on above: Result Comment: mL/m in/1.73m2 CKD-EPI Creatinine Equation (2020) Performed By: #### L 100.0100, L500.4050 #### [facility] [address] [place], [address] Globulin (S) [Mass/Vol] 3.6 g/dL Normal 2.2-4.2 [facility] Comment on above: Performed By: #### L 100.0100, L500.4050 #### [facility] [address] [place], [address] Glucose [Mass/Vol] 161 mg/dL High 70-99 [facility] Comment on above: Performed By: #### L 100.0100, L500.4050 #### [facility] [address] [place], [address] Potassium [Moles/Vol] 4.7 mmol/L Normal 3.3-5.1 [facility] Comment on above: Performed By: #### L 100.0100, L500.4050 #### [facility] [address] [place], [address] Sodium [Moles/Vol] 138 mmol/L Normal 133-145 [facility] Comment on above: Performed By: #### L 100.0100, L500.4050 #### [facility] [address] [place], [address] T PROT 7.7 g/dL Normal 5.9-8.4 [facility] Comment on above: Performed By: #### L 100.0100, L500.4050 #### [facility] [address] [place], [address] Urea nitrogen [Mass/Vol] 31 mg/dL High 4-19 [facility] Comment on above: Performed By: #### L 100.0100, L500.4050 #### [facility] [address] [place], [address] D-Dimer Quantitative (DVT/PE )on 09-22-2024 D-DIMER QUANT 0.27 FEU/ug/m Normal 0.27-0.49 [facility] Comment on above: Result Comment: NORM AL D-Dimer level (<0.50) indicates no DVT or PE. Performed By: #### L 400.0001 #### [facility] [address] [place], [address] Eosinophil percentageOrdered By: Chelo Beckman on 09-22-2024 Eosinophils/100 WBC (Bld) 0.0 % 0-5 [facility] Erythrocyte distribution wid th ratioOrdered By: Chelo Beckman on 09-22-2024 Erythrocyte distribution width (RBC) [Ratio] 12.4 % 11.6-14.6 [facility] Erythrocyte distribution wid th standard deviationOrdered By: Chelo Beckman on 09-22-2024 Erythrocyte distribution width (RBC) [Ratio] 42.5 fl 35.1-43.9 [facility] Glomerular filtration rate ( GFR) estimation/1.73 sq m using serum, plasma, or whole bOrdered By: Chelo Beckman on 09-22-2024 GFR/1.73 sq M.predicted among non-blacks MDRD (S/P/Bld) [Vol rate/Area] 52 mL/min/{1.73_m2} Low >60 [facility] Comment on above: mL/min/1.73m2 CKD-EP I Creatinine Equation (2020) Hematocrit Auto (Bld) [Volum e fraction]Ordered By: Chelo Beckman on 09-22-2024 Hematocrit (Bld) [Volume fraction] 44.7 % 37-47 [facility] Hemoglobin measurementOrdere d By: Chelo Beckman on 09-22-2024 Hemoglobin (Bld) [Mass/Vol] 14.3 g/dL 12.0-15.0 [facility] Immature granulocytes/100 WB C Auto (Bld)Ordered By: Chelo Beckman 09-22-2024 Immature granulocytes/100 WBC (Bld) 0.700 % 0.0-0.9 [facility] Comment on above: IG% - Immature Granu locytes (promyelocytes, myelocytes and metamyelocytes) > 1% indicates that a LEFT SHIFT is Present. Laboratory - Chemistry and C hemistry - challengeOrdered By: Chelo Beckman on 09-22-2024 AST [Catalytic activity/Vol] 33 U/L High <32 [facility] MCV (mean corpuscular volume ) determinationOrdered By: Chelo Beckman 09-22-2024 MCV (RBC) [Entitic vol] 93.5 fL 81-99 [facility] Mean corpuscular hemoglobin (MCH) determinationOrdered By: Chelo Beckman on 09-22-2024 MCH (RBC) [Entitic mass] 29.9 pg 27.0-32.0 [facility] Mean corpuscular hemoglobin concentration (MCHC) determinationOrdered By: Chelo Beckman 09-22-2024 MCHC (RBC) [Mass/Vol] 32.0 g/dL 32-36 [facility] Mean platelet volume determi nationOrdered By: Chelo AnthonyKaruna on 09-22-2024 Platelet mean volume (Bld) [Entitic vol] 9.2 fL 6.2-12.0 [facility] Monocyte percentageOrdered B y: Chelo Karuna on 09-22-2024 Monocytes/100 WBC (Bld) 2.8 % 0-10 [facility] Neutrophil percentageOrdered By: [facility] on 09-22-2024 Neutrophils/100 WBC (Bld) 91.9 % High 47-70 [facility] Nucleated red blood cell per centageOrdered By: [facility] on 09-22-2024 Nucleated RBC/100 WBC (Bld) [Ratio] 0 % 0-5 [facility] Oncology Visit Reporton 09-08 Oncology Visit Report [facility] [place] [facility] [address] [address] OFFICE VISIT Date of Service: 09/22/24 1511 MR#: [id number] Acct: [id number] Name: CHAPARRITA BARAJAS Rep #: [id number] : 1955 From: Abhi Ellison MD Age/Sex: 69/F Location: [facility] [place] Status: Signed HPI Subjective Date of Service 09/22/24 Chief Complaint F/u for DVT management. History of Present Illness 69-year-old woman developed LLE edema after a week of immobility secondary to influenza. She presented to [facility] ED and Doppler on 02/14/2024 showed left femoral vein acute DVT. She was then started on Eliquis. Developed hematuria and went back to the ER on 02/23/2024. She was subsequently admitted to the hospital, Eliquis was discontinued and she had Alisha filter placed. She was referred to [facility] March 2024 to discuss further management of DVT. Underwent cystoscopy with urology and reportedly was normal. Urine cytology negative. Advised to resume Eliquis April 2024. 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 Historically she experienced a RLE DVT following trauma/fracture of her right knee, RLE DVT after being on oral contraceptives for a short time, a superficial clot involving her LUE, and DVT of LLE after another surgical procedure. She has had previous episodes of clotting which were related to surgery. She still had swelling of the Left leg. Was seen by Urology and cystoscopy was reportedly normal. She is still on Eliquis, comes for follow up. Feels well. [facility] Medical History DVT (deep venous thrombosis) Hematuria Trigger finger of both hands Bilateral carpal tunnel syndrome Diabetes type 2, controlled Arthritis Hypertension Surgical History S/P IVC filter History of arthroplasty of finger of left hand History of knee replacement History of back surgery H/O: hysterectomy History of hip replacement H/O shoulder replacement Family History Grandmother Myocardial infarction Grandfather Aneurysm Mother Kidney failure Uncle Myocardial infarction Social History household members: spouse Smoking Status: Former smoker Tobacco: How many years used: 30 alcohol intake: current alcohol intake frequency: holidays/special occasions only substance use type: does not use Intake Vital Signs 07/07/24 14:46 09/22/24 15:12 Height 5 ft 2 in 5 ft 2 in Weight: 87.798 kg 87.742 kg BMI 35.4 35.4 BP 103/68 111/76 Blood Pressure Location Lt brachial Lt brachial Position Sitting Sitting Respiration 18 18 Pulse 80 79 Pulse Source Monitor Monitor Temp 97 F L 97.1 F L Temperature Source Temporal Artery Temporal Artery Pulse Oximetry (%) 95 95 Oxygen Delivery Method room air room air Intake Is patient in pain?: No Allergies codeine Allergy (Verified 09/22/24 15:14) Other topiramate (From Topamax) Allergy (Verified 09/22/24 15:14) Nausea amoxicillin (Amoxicillin) Adverse Reaction (Verified 09/22/24 15:14) Nausea etodolac (From Lodine) Adverse Reaction (Verified 09/22/24 15:14) Diarrhea fluticasone propionate (From Flovent Diskus) Adverse Reaction (Verified 09/22/24 15:14) headache lansoprazole (From Prevacid) Adverse Reaction (Verified 09/22/24 15:14) Unknown lorazepam (From Ativan) Adverse Reaction (Verified 09/22/24 15:14) Unknown lubiprostone Adverse Reaction (Verified 09/22/24 15:14) Nausea misoprostol (From Cytotec) Adverse Reaction (Verified 09/22/24 15:14) Diarrhea nitrofurantoin (From Macrobid) Adverse Reaction (Verified 09/22/24 15:14) Nausea nitrofurantoin macrocrystalline (From Macrobid) Adverse Reaction (Verified 09/22/24 15:14) Nausea Medications ???Medication ???Instructions ???Recorded ???Confirmed ???Type atenolol 50 mg tablet 50 mg PO DAILY 04/18/14 09/22/24 H istory calcium 600 mg-D3 800 unit-mag 40 1 ea PO DAILY 04/18/14 09/22/24 H istory ta-fngu-zlgt-zuly-[place] chew tablet (Caltrate 600-D Plus Minerals) lisinopril 5 mg tablet 20 mg PO DAILY 04/18/14 09/22/24 H istory cephalexin 250 mg capsule (Keflex) 250 mg PO DAILY 12/17/15 5 History cranberry extract 200 mg capsule 150 mg PO DAILY 12/17/15 09/22/24 History multivitamin with folic acid 400 1 tab PO DAILY 12/17/15 09/22/24 H istory mcg tablet (Thera) pantoprazole 40 mg tablet,delayed 40 mg PO DAILY 12/17/15 09/22/24 History release carvedilol 12.5 mg tablet 12.5 mg PO BID 02/23/24 09/22/24 H istory metformin 500 mg tablet,extended 500 mg PO BID 02/23/24 09/22/24 Hi story release 24 hr morphine 15 mg tablet,extended 15 (more content not included)... Normal [facility] Platelet countOrdered By: Ian Beckman on 09-22-2024 Platelets (Bld) [#/Vol] 355 10*3/uL 150-450 [facility] Potassium measurement (mass/ volume)Ordered By: Chelo Beckman on 09-22-2024 Potassium (Unsp spec) [Mass/Vol] 4.7 mmol/L 3.3-5.1 [facility] RBC Auto (Bld) [#/Vol]Ordere d By: Chelo Beckman on 09-22-2024 RBC (Bld) [#/Vol] 4.78 10*6/uL 4.2-5.4 [facility] Serum creatinine measurement (mass/volume)Ordered By: Chelo Beckman on 09-22-2024 Creatinine [Mass/Vol] 1.13 mg/dL 0.70-1.20 [facility] Serum globulin measurementOr dered By: Chelo Beckman on 09-22-2024 Globulin (S) [Mass/Vol] 3.6 g/dL 2.2-4.2 [facility] Serum glucose measurement (m ass/volume)Ordered By: Chelo Beckman on 09-22-2024 Glucose [Mass/Vol] 161 mg/dL High 70-99 [facility] Serum or plasma alanine kirk otransferase (ALT) measurementOrdered By: Chelo Beckman on 09-22-2024 ALT [Catalytic activity/Vol] 41 U/L High <35 [facility] Serum or plasma albumin lexii urement (mass/volume)Ordered By: Chelo Beckman 09-22-2024 Albumin [Mass/Vol] 4.1 g/dL 3.4-4.8 [facility] Serum or plasma albumin/glob ulin mass ratioOrdered By: Chelo Beckman 09-22-2024 Albumin/Globulin [Mass ratio] 1.2 {ratio} 0.9-2.4 [facility] Serum or plasma alkaline mandeep sphatase measurementOrdered By: Chelo Beckman 09-22-2024 ALP [Catalytic activity/Vol] 111 U/L High 35-104 [facility] Serum or plasma calcium lexii urement (mass/volume)Ordered By: Chelo Beckman 09-22-2024 Calcium [Mass/Vol] 9.6 mg/dL 7.6-11.0 [facility] Serum or plasma urea nitroge n measurement (mass/volume)Ordered By: Chelo Beckman 09-22-2024 Urea nitrogen [Mass/Vol] 31 mg/dL High 4-19 [facility] Sodium levelOrdered By: Chelo Beckman on 09-22-2024 Sodium [Moles/Vol] 138 mmol/L 133-145 [facility] Total proteinOrdered By: Tyr ania Beckman on 09-22-2024 Protein [Mass/Vol] 7.7 g/dL 5.9-8.4 [facility] White blood cell (WBC) count Ordered By: Chelo Beckman on 09-22-2024 WBC (Bld) [#/Vol] 20.7 10*3/uL High 4.4-11.0 [facility] CBC panel Auto (Bld)on 09-21 Erythrocyte distribution width (RBC) [Ratio] 12.4 % Normal 11.5-15.0 [facility] Comment on above: Order Comment: Speci men Type: BLOOD SPECIMENOrdering Facility: [facility] Address: [address] [place] [address] Performed By: #### 5 8410-2 ####[facility] LABCLIA [id number] [address] [place] Hematocrit (Bld) [Volume fraction] 46.5 % High 36.0-46.0 [facility] Comment on above: Order Comment: Speci men Type: BLOOD SPECIMENOrdering Facility: [facility] Address: [address] [place] [address] Performed By: #### 5 8410-2 ####[facility] LABCLIA [id number] [place] [address] [place] Hemoglobin (Bld) [Mass/Vol] 14.5 g/dL Normal 11.5-15.5 [facility] [facility] Comment on above: Order Comment: Speci men Type: BLOOD SPECIMENOrdering Facility: [facility] Address: [address] [place] [address] Performed By: #### 5 8410-2 ####[facility] LABCLIA [id number] [place] [address] [place] MCH (RBC) [Entitic mass] 29.8 pg Normal 26.0-34.0 [facility] Comment on above: Order Comment: Speci men Type: BLOOD SPECIMENOrdering Facility: [facility] Address: [address] [place] [address] Performed By: #### 5 8410-2 ####[facility] LABCLIA [id number] [place] [address] [place] MCHC (RBC) [Mass/Vol] 31.2 g/dL Normal 30.5-36.0 [facility] Comment on above: Order Comment: Speci men Type: BLOOD SPECIMENOrdering Facility: [facility] Address: [address] [place] [address] Performed By: #### 5 8410-2 ####[facility] LABIA [id number] [place] [address] [place] MCV (RBC) [Entitic vol] 95.5 fL Normal 80.0-100.0 [facility] Comment on above: Order Comment: Speci men Type: BLOOD SPECIMENOrdering Facility: [facility] Address: [address] [place] [address] Performed By: #### 5 8410-2 ####[facility] LABIA [id number] [place] [address] [place] Nucleated RBC (Bld) [#/Vol] 10*3/uL Normal <0.01 [facility] Comment on above: Order Comment: Speci men Type: BLOOD SPECIMENOrdering Facility: [facility] Address: [address] [place] [address] Performed By: #### 5 8410-2 ####[facility] LABIA [id number] [place] [address] [place] Platelet mean volume (Bld) [Entitic vol] 9.6 fL Normal 9.0-12.7 [facility] Comment on above: Order Comment: Speci men Type: BLOOD SPECIMENOrdering Facility: [facility] Address: [address] [place] [address] Performed By: #### 5 8410-2 ####[facility] LABIA [id number] [place] [address] [place] Platelets (Bld) [#/Vol] 376 10*3/uL Normal 150-400 [facility] Comment on above: Order Comment: Speci men Type: BLOOD SPECIMENOrdering Facility: [facility] Address: [address] [place] [address] Performed By: #### 5 8410-2 ####[facility] LABIA [id number] [place] [address] [place] [facility] RBC (Bld) [#/Vol] 4.87 10*6/uL Normal 3.90-5.20 [facility] Comment on above: Order Comment: Speci men Type: BLOOD SPECIMENOrdering Facility: [facility] Address: [address] [place] [address] Performed By: #### 5 8410-2 ####[facility] [id number] [place] [address] [place] WBC (Bld) [#/Vol] 15.68 10*3/uL High 3.70-11.00 [facility] Comment on above: Order Comment: Speci men Type: BLOOD SPECIMENOrdering Facility: [facility] Address: [address] [place] [address] Performed By: #### 5 8410-2 ####[facility] [id number] [place] [id number] [facility] CNOVon 09-21-2024 CNOV Office Visit (UCWSTR) CHAPARRITA BARAJAS ([id number]) 1955 F Date Time Provider Department 09/21/24 8:45 AM ALEXANDREA ACE [facility] During your visit today, we recorded the following information about you: Temperature Pulse Respiration Blood pressure 97.5 degrees 80/minute 18/minute 118/74 Weight 86.7 kg Alexandrea Ace PA-C 09/21/2024 9:37 AM Signed This note was created using Keyprriter. Subjective Chaparrita Barajas is a 69 year old female. Patient is a 69-year-old female who complains of congestion, right ear pain and cough that she has been experiencing for the past 2 days. Patient states that she also developed significant hoarseness to her voice over the last 24 hours. Patient states that her left ear is asymptomatic and nontender. Patient does complain of sore throat but denies sinus pressure or pain. Patient reports no fever, chills or myalgia. Ear Pain Associated symptoms include congestion, coughing and a sore throat. Review of Systems HENT: Positive for congestion, ear pain, sore throat and voice change. Respiratory: Positive for cough. All other systems reviewed and are negative. Objective BP 118/74 Pulse 80 Temp 36.4 ?C (97.5 ?F) (Tympanic) Resp 18 Wt 86.7 kg (191 lb 2.2 oz) SpO2 96% BMI 34.07 kg/m? Physical Exam Vitals and nursing note reviewed. Constitutional: Appearance: Normal appearance. She is normal weight. HENT: Head: Normocephalic and atraumatic. Right Ear: Tympanic membrane, ear canal and external ear normal. Left Ear: Tympanic membrane, ear canal and external ear normal. Nose: Nose normal. Mouth/Throat: Mouth: Mucous membranes are moist. Pharynx: Oropharynx is clear. Eyes: Extraocular Movements: Extraocular movements intact. Conjunctiva/sclera: Conjunctivae normal. Pupils: Pupils are equal, round, and reactive to light. Cardiovascular: Rate and Rhythm: Normal rate and regular rhythm. Pulses: Normal pulses. Heart sounds: Normal heart sounds. Pulmonary: Effort: Pulmonary effort is normal. Breath sounds: Normal breath sounds. Musculoskeletal: Cervical back: Normal range of motion and neck supple. Skin: General: Skin is warm and dry. Capillary Refill: Capillary refill takes less than 2 seconds. Neurological: General: No focal deficit present. Mental Status: She is alert and oriented to person, place, and time. Psychiatric: Mood and Affect: Mood normal. Behavior: Behavior normal. Thought Content: Thought content normal. Judgment: Judgment normal. Assessment and Plan Physical exam findings as noted above. Rapid strep test is negative. Patient was provided with prescription for prednisone 20 mg and supportive care instructions were discussed. Patient verbalizes excellent understanding of same. CLINICAL IMPRESSION: Acute Laryngitis; Viral Illness ASSESSMENT/PLAN: 1. Acute laryngitis - ICD9: 464.00, ICD10: J04.0 (primary diagnosis) - STREP A MOLECULAR (POC) - PREDNISONE 20 MG TABLET 2. Viral illness - ICD9: 079.99, ICD10: B34.9 MDM Amount and/or Complexity of Data Reviewed Clinical lab tests: ordered and reviewed Risk of Complications, Morbidity, and/or Mortality Presenting problems: low Diagnostic procedures: low Management options: dyllan Ace PA-C Allergies As of Date: 09/21/2024 Noted Allergy Reaction ADHESIVE 12/17/2012 2 - Rash Comments: Bandaids- swelling, rash AMOXICILLIN 03/05/2005 8 - GI Upset ATIVAN (LORAZEPAM) 01/08/2005 5 - Intolerance CODEINE 03/05/2005 CYTOTEC (MISOPROSTOL) 03/26/2005 6 - Diarrhea FLOVENT (FLUTICASONE PROPIONATE) 07/24/2008 Comments: Severe headaches. LODINE (ETODOLAC) 03/26/2005 5 - Intolerance LUBIPROSTONE 11/06/2011 8 - GI Upset MACROBID (NITROFURANTOIN MONOHYD/*05/30/2005 Comments: nausea. ok with plain Macrodantin PREVACID (LANSOPRAZOLE) 03/05/2005 TOPAMAX (TOPIRAMATE) 07/25/2009 8 - GI Upset Comments: Eyes blurry, could not eat for 2 weeks ,gi symptoms Date Reviewed: 09/21/2024 Reviewed by: Nya Domínguez LPN - Fully Assessed Reason for Visit: Ear Pain [817] Cmt: Right ear pain, cough and congestion x 2 days Primary Visit Diagnosis:Acute laryngitis [J04.0] Other Visit Diagnosis:Viral illness [B34.9] Order(s):STREP A MOLECULAR (POC) [1100352] Order #: [id number]. #:[id number] predniSONE (DELTASONE) 20 mg tabletTake 1 tablet by mouth two times a day for 5 days.Disp: 10 tabletRfl: 0 Prescriptions as of 09/21/2024 - predniSONE (DELTASONE) 20 mg tablet Take 1 tablet by mouth two times a day for 5 days. - perfluorohexyloctane , PF, (MIEBO, PF,) 100 % drop Use 1 Drop in eyes four times daily. - blood sugar diagnostic (BLOOD GLUCOSE TEST) test strip Test blood sugar(s) one time daily. Dx: Type 2 DM - Controlled E11.9 Insulin: No - lisinopril (ZESTRIL) 20 mg tablet Take 1 tablet by mouth once daily. - carvedilol (more content not included)... Normal [facility] Comprehensive metabolic 2000 panelon 09-21-2024 Albumin [Mass/Vol] 4.1 g/dL Normal 3.9-4.9 [facility] Comment on above: Order Comment: Speci men Type: BLOOD SPECIMENOrdering Facility: [facility] Address: [address] [place] [address] Performed By: #### 2 4331-1, , ####[facility] LABCLIA [id number] [place] [address] [place] ALP [Catalytic activity/Vol] 104 U/L Normal 34-123 [facility] Comment on above: Order Comment: Speci men Type: BLOOD SPECIMENOrdering Facility: [facility] Address: [address] [place] [address] Performed By: #### 2 4331-1, , ####[facility] LABCLIA [id number] [place] [address] [place] ALT [Catalytic activity/Vol] 23 U/L Normal 7-38 [facility] Comment on above: Order Comment: Speci men Type: BLOOD SPECIMENOrdering Facility: [facility] Address: [address] [place] [address] Performed By: #### 2 4331-1, , ####[facility] LABCLIA [id number] [place] [id number] [place] Anion gap [Moles/Vol] 14 mmol/L Normal 8-15 [facility] Comment on above: Order Comment: Speci men Type: BLOOD SPECIMENOrdering Facility: [facility] Address: [address] [place] [address] Performed By: #### 2 4331-1, , ####[facility] LABCLIA [id number] [place] [address] [place] AST [Catalytic activity/Vol] 21 U/L Normal 13-35 [facility] Comment on above: Order Comment: Speci men Type: BLOOD SPECIMENOrdering Facility: [facility] Address: [address] [place] [address] Performed By: #### 2 4331-1, , ####[facility] LABIA [id number] [place] [address] [place] Bilirubin [Mass/Vol] 0.6 mg/dL Normal 0.2-1.3 [facility] Comment on above: Order Comment: Speci men Type: BLOOD SPECIMENOrdering Facility: [facility] Address: [address] [place] [address] Performed By: #### 2 4331-1, , ####[facility] LABIA [id number] [place] [id number] [place] Calcium [Mass/Vol] 9.7 mg/dL Normal 8.5-10.2 [facility] Comment on above: Order Comment: Speci men Type: BLOOD SPECIMENOrdering Facility: [facility] Address: [address] [place] [address] Performed By: #### 2 4331-1, , ####[facility] LABCLIA [id number] [address] [address] [place] Chloride [Moles/Vol] 98 mmol/L Normal 98-107 [facility] Comment on above: Order Comment: Speci men Type: BLOOD SPECIMENOrdering Facility: [facility] Address: [address] [place], [place] [address] Performed By: #### 2 4331-1, , ####[facility] LABIA [id number] [place] [address] [place] CO2 [Moles/Vol] 25 mmol/L Normal 22-30 [facility] Comment on above: Order Comment: Speci men Type: BLOOD SPECIMENOrdering Facility: [facility] Address: [address] [place] [address] Performed By: #### 2 4331-1, , ####[facility] LABIA [id number] [place] [id number] [place] Creatinine [Mass/Vol] 1.35 mg/dL High 0.58-0.96 [facility] Comment on above: Order Comment: Speci men Type: BLOOD SPECIMENOrdering Facility: [facility] Address: [address] [place] [address] Performed By: #### 2 4331-1, , ####[facility] LABIA [id number] [address] [address] [place] Creatinine and Glomerular filtration rate.predicted panel (S/P/Bld) 42 mL/min/1.73m??? Low >=60 [facility] Comment on above: Order Comment: Speci men Type: BLOOD SPECIMENOrdering Facility: [facility] Address: [address] [place], [place] [address] Result Comment: Susie mated Glomerular Filtration Rate (eGFR) is calculated using the 2020 CKD-EPI creatinine equation. This equation utilizes serum creatinine, sex, and age as parameters. The creatinine assay has traceable calibration to isotope dilution-mass spectrometry. Refer to KDIGO guidelines for clinical interpretation. In patients with unstable renal function, e.g. those with acute kidney injury, the eGFR may not accurately reflect actual GFR. Performed By: #### 2 4331-1, , ####[facility] LABCLIA [id number] [address] [address] [place] Glucose [Mass/Vol] 127 mg/dL High 74-99 [facility] Comment on above: Order Comment: Bhanu valente Type: BLOOD SPECIMENOrdering Facility: [facility] Address: [address] [place] [address] Result Comment: The [place] Diabetes Association (ADA) provides guidance for cutoff values for fasting glucose and random glucose. The ADA defines fasting as no caloric intake for at least 8 hours. Fasting plasma glucose results between 100 to 125 mg/dL indicate increased risk for diabetes (prediabetes). Fasting plasma glucose results greater than or equal to 126 mg/dL meet the criteria for diagnosis of diabetes. In the absence of unequivocal hyperglycemia, results should be confirmed by repeat testing. In a patient with classic symptoms of hyperglycemia or hyperglycemic crisis, random plasma glucose results greater than or equal to 200 mg/dL meet the criteria for diagnosis of diabetes. Reference: Standards of Medical Care in Diabetes 2016, [place] Diabetes Association. Diabetes Care. 2016.39(Suppl 1). Performed By: #### 2 4331-1, , ####[facility] LABCLIA [id number] [address] [address] [place] Potassium [Moles/Vol] 5.0 mmol/L Normal 3.7-5.1 [facility] Comment on above: Order Comment: Bhanu valente Type: BLOOD SPECIMENOrdering Facility: [facility] Address: [address] [place] [address] Performed By: #### 2 4331-1, , ####[facility] LABIA [id number] [address] [address] [place] Protein [Mass/Vol] 7.5 g/dL Normal 6.3-8.0 [facility] Comment on above: Order Comment: Speci men Type: BLOOD SPECIMENOrdering Facility: [facility] Address: [address] [place] [address] Performed By: #### 2 4331-1, , ####[facility] LABIA [id number] [address] [address] [place] Sodium [Moles/Vol] 137 mmol/L Normal 136-144 [facility] Comment on above: Order Comment: Speci men Type: BLOOD SPECIMENOrdering Facility: [facility] Address: [address] [place] [address] Performed By: #### 2 4331-1, , ####[facility] LABIA [id number] [address] [address] [place] Urea nitrogen [Mass/Vol] 21 mg/dL Normal 7-21 [facility] Comment on above: Order Comment: Speci men Type: BLOOD SPECIMENOrdering Facility: [facility] Address: [address] [place] [address] Performed By: #### 2 4331-1, , ####[facility] LABIA [id number] [address] [address] [place] HbA1c (Bld)on 09-21-2024 Average glucose Estimated from glycated hemoglobin (Bld) [Mass/Vol] 131 mg/dL Normal [facility] Comment on above: Order Comment: Speci men Type: BLOOD SPECIMENOrdering Facility: [facility] Address: [address] [place] [address] Result Comment: eAG: (Estimated average glucose) is a calculated value from HgbA1c and is exhibit display representative of the average blood glucose level in the last 2-3 month period. Performed By: #### 5 5454-3 ####[facility] LABCLIA [id number] [place] [address] [place] HbA1c (Bld) [Mass fraction] 6.2 % High 4.3-5.6 [facility] Comment on above: Order Comment: Speci men Type: BLOOD SPECIMENOrdering Facility: [facility] Address: [address] [place] [address] Result Comment: [place] Diabetes Association guidelines indicate that patients with HgbA1c in the range 5.7-6.4% are at increased risk for development of diabetes, and intervention by lifestyle modification may be beneficial. HgbA1c greater or equal to 6.5% is considered diagnostic of diabetes. Performed By: #### 5 5454-3 ####[facility] LABCLIA [id number] [place] [address] [place] Lipid 1996 panelon 5 Cholesterol [Mass/Vol] 147 mg/dL Normal <200 [facility] Comment on above: Order Comment: Speci men Type: BLOOD SPECIMENOrdering Facility: [facility] Address: [address] [place] [address] Result Comment: <200 mg/dL, Desirable 200-239 mg/dL, Borderline high >239 mg/dL, High Performed By: #### 2 4331-1, , ####[facility] LABCLIA [id number] [address] STATES OF [facility] Cholesterol in HDL [Mass/Vol] 56 mg/dL Normal >39 [facility] Comment on above: Order Comment: Speci men Type: BLOOD SPECIMENOrdering Facility: [facility] Address: [address] [place] [address] Result Comment: 40-5 9 mg/dL, Acceptable >59 mg/dL, High: Negative risk factor for coronary heart disease <40 mg/dL, Low: Positive risk factor for coronary heart disease Performed By: #### 2 4331-1, , ####[facility] LABCLIA [id number] [address] [address] [place] Cholesterol in LDL [Mass/Vol] 74 mg/dL Normal <100 [facility] Comment on above: Order Comment: Speci men Type: BLOOD SPECIMENOrdering Facility: [facility] Address: [address] [place] [address] Result Comment: <100 mg/dL, Optimal 100-129 mg/dL, Near optimal/above optimal 130-159 mg/dL, Borderline high 160-189 mg/dL, High >189 mg/dL, Very high Secondary prevention optimal LDL Cholesterol levels are recommended to be <70 mg/dL LDL cholesterol is calculated using the Lieberman-NIH equation. Performed By: #### 2 4331-1, , ####[facility] LABIA [id number] [address] [address] [place] Cholesterol in LDL/Cholesterol in HDL [Mass ratio] 1.32 {ratio} Normal <2.54 [facility] Comment on above: Order Comment: Speci men Type: BLOOD SPECIMENOrdering Facility: [facility] Address: [address] [place] [address] Result Comment: [place]: 1. National Cholesterol Education Program ATP III Guideline At-A-Glance Quick Desk Reference: National Heart, Lung, and Blood Bowie. National Institutes of Health. 2001: NIH Publication No. 01-3305. 2. An International Atherosclerosis Society position paper: global recommendations for the management of dyslipidemia: executive summary, Atherosclerosis. 2014: 232(2):410-413. Performed By: #### 2 4331-1, , ####[facility] LABIA [id number] [address] [address] [place] Cholesterol in VLDL [Mass/Vol] 14 mg/dL Normal <30 [facility] Comment on above: Order Comment: Speci men Type: BLOOD SPECIMENOrdering Facility: [facility] Address: [address] [place] [address] Performed By: #### 2 4331-1, , ####[facility] LABCLIA [id number] [facility] [address] [address] [place] Cholesterol non HDL [Mass/Vol] 91 mg/dL Normal <130 [facility] Comment on above: Order Comment: Speci men Type: BLOOD SPECIMENOrdering Facility: [facility] Address: [address] [place] [address] Result Comment: <130 mg/dL, Optimal 130-159 mg/dL, Near optimal/above optimal 160-189 mg/dL, Borderline high 190-219 mg/dL, High >219 mg/dL, Very high Secondary prevention optimal non HDL Cholesterol levels are recommended to be <100 mg/dL Performed By: #### 2 4331-1, , ####[facility] LABCLIA [id number] [address] [address] [place] Cholesterol.total/Reva sterol in HDL [Mass ratio] 2.63 {ratio} Normal <5.10 [facility] Comment on above: Order Comment: Speci men Type: BLOOD SPECIMENOrdering Facility: [facility] Address: [address] [place], [place] [address] Performed By: #### 2 4331-1, , ####[facility] LABCLIA [id number] [address] [address] [place] FASTING TIME 12 hrs Normal [facility] Comment on above: Order Comment: Speci men Type: BLOOD SPECIMENOrdering Facility: [facility] Address: [address] [place] [address] Performed By: #### 2 4331-1, , ####[facility] LABCLIA [id number] [facility] [address] [address] [place] Triglyceride [Mass/Vol] 91 mg/dL Normal <150 [facility] Comment on above: Order Comment: Speci men Type: BLOOD SPECIMENOrdering Facility: [facility] Address: [address] [place], [place] [address] Result Comment: <150 mg/dL, Normal 150-199 mg/dL, Borderline high 200-499 mg/dL, High >499 mg/dL, Very high Performed By: #### 2 4331-1, , ####[facility] LABCLIA [id number] [place] [id number] [place] Magnesium SerPl-mCncon 09-21 Magnesium [Mass/Vol] 2.1 mg/dL Normal 1.7-2.3 [facility] Comment on above: Order Comment: Speci men Type: BLOOD SPECIMENOrdering Facility: [facility] Address: [address] [place] [address] Performed By: #### 2 4331-1, , ####[facility] LABCLIA [id number] [place] [id number] [place] STREP A MOLECULAR (POC)on Procedural Control Valid [facility] Strep A (POCT) Negative Negative [facility] MR/BMS.BVSon 07-28-2024 MR/BMS.BVS [facility] [address] [place] [address] OFFICE VISIT Date of Service: 07/29/24 MR#: [id number] Acct: [id number] Name: JADONJANIECHAPARRITA R Rep #: [id number] : 1955 Provider: MILA Adams Age/Sex: 69/F Location: [facility] Status: Signed Intake Vital Signs 03/22/24 15:56 05/05/24 11:07 07/07/24 14:46 07/29/24 13:14 Height 5 ft 2 in 5 ft 2 in 5 ft 2 in Weight: 192 lb BP 128/71 H Blood Pressure Location Lt brachial Position Sitting Respiration 16 Pulse 76 Pulse Source Monitor Temp 95.6 F L Temp Source Temporal Pulse Oximetry (%) 95 Oxygen Delivery Method room air Intake Visit Reasons: 3-4 M FU Is patient in pain?: Yes Allergies codeine Allergy (Verified 07/29/24 13:15) Other topiramate (From Topamax) Allergy (Verified 07/29/24 13:15) Nausea amoxicillin (Amoxicillin) Adverse Reaction (Verified 07/29/24 13:15) Nausea etodolac (From Lodine) Adverse Reaction (Verified 07/29/24 13:15) Diarrhea fluticasone propionate (From Flovent Diskus) Adverse Reaction (Verified 07/29/24 13:15) headache lansoprazole (From Prevacid) Adverse Reaction (Verified 07/29/24 13:15) Unknown lorazepam (From Ativan) Adverse Reaction (Verified 07/29/24 13:15) Unknown lubiprostone Adverse Reaction (Verified 07/29/24 13:15) Nausea misoprostol (From Cytotec) Adverse Reaction (Verified 07/29/24 13:15) Diarrhea nitrofurantoin (From Macrobid) Adverse Reaction (Verified 07/29/24 13:15) Nausea nitrofurantoin macrocrystalline (From Macrobid) Adverse Reaction (Verified 07/29/24 13:15) Nausea Medications ???Medication ???Instructions ???Recorded ???Confirmed ???Type atenolol 50 mg tablet 50 mg PO DAILY 04/18/14 07/29/24 H istory calcium 600 mg-D3 800 unit-mag 40 1 ea PO DAILY 04/18/14 07/29/24 H istory ph-hosj-nwzb-zuly-[place] chew tablet (Caltrate 600-D Plus Minerals) lisinopril 5 mg tablet 20 mg PO DAILY 04/18/14 07/29/24 H istory cephalexin 250 mg capsule (Keflex) 250 mg PO DAILY 12/17/15 5 History cranberry extract 200 mg capsule 150 mg PO DAILY 12/17/15 07/29/24 History multivitamin with folic acid 400 1 tab PO DAILY 12/17/15 07/29/24 H istory mcg tablet (Thera) pantoprazole 40 mg tablet,delayed 40 mg PO DAILY 12/17/15 07/29/24 History release carvedilol 12.5 mg tablet 12.5 mg PO BID 02/23/24 07/29/24 H istory metformin 500 mg tablet,extended 500 mg PO BID 02/23/24 07/29/24 Hi story release 24 hr morphine 15 mg tablet,extended 15 mg PO Q12.TCU 02/23/24 07/29/24 History release oxycodone 10 mg tablet 10 mg PO BID PRN PRN pain 02/23/24 07/29/24 History rosuvastatin 5 mg tablet (Crestor) 5 mg PO QHS cholestrol 02/23/24 07/29/24 History venlafaxine 75 mg capsule,extended 75 mg PO BID 02/23/24 07/29/24 H istory release 24 hr (Effexor XR) aspirin 81 mg chewable tablet 162 mg PO QDAY 03/15/24 07/29/24 H istory liver supplement 1 cap PO DAILY 03/15/24 07/29/24 H istory apixaban 5 mg tablet (Eliquis) 5 mg PO BID 07/07/24 07/29/24 Hist ory Is last menstrual period known: No Post menopausal: Yes Patient : No Have you fallen in the past year?: No PFSH Medical History DVT (deep venous thrombosis) Hematuria Trigger finger of both hands Bilateral carpal tunnel syndrome Diabetes type 2, controlled Arthritis Hypertension Surgical History S/P IVC filter History of arthroplasty of finger of left hand History of knee replacement History of back surgery H/O: hysterectomy History of hip replacement H/O shoulder replacement Family History Grandmother Myocardial infarction Grandfather Aneurysm Mother Kidney failure Uncle Myocardial infarction Social History household members: spouse Smoking Status: Former smoker Tobacco: How many years used: 30 alcohol intake: current alcohol intake frequency: holidays/special occasions only substance use type: does not use HPI HPI HPI: CHAPARRITA BARAJAS, is a 69 F who presents to the office today status post IVC filter placement 02/23/2024 to reassess appropriateness for IVC filter retrieval. Recall that she had extensive LLE DVT 02/14/2024 but then developed significant hematuria with associated anemia necessitating anticoagulation hold and thus filter placement. 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 The prior DVTs were mostly reasonably provoked by injury or surgery. This current DVT, the only possible provoking factor was a few day bout of a bad flu (not COVID) leading up to the diagnosis. At last OV, her Eliquis (more content not included)... Normal [facility] 07-22-2024 [facility] Telephone (OPHTMN) CHAPARRITA BARAJAS ([id number]) 1955 F Date Time Provider Department 07/22/24 [facility]IDIA LOW [facility] During your visit today, we recorded the following information about you: Lidia Low, Research Coordinator 07/22/2024 1:15 PM Signed IRB #: [id number] PI: Mckenzie Zabala MD Study Title: Identifying Multimodal Biomarkers for Autologous Serum Tears in the Treatment of Chronic Postoperative Ocular Pain (CPOP) Called patient at the request of Dr. Zabala July 22, 2024, regarding potential interest in serum tears/CPOP study. No answer, LMOM for patient to call back Lidia at [phone] if interested in participating or learning more. Lidia Low Research Coordinator II July 22, 2024 Allergies As of Date: 07/22/2024 Noted Allergy Reaction ADHESIVE 12/17/2012 2 - Rash Comments: Bandaids- swelling, rash AMOXICILLIN 03/05/2005 8 - GI Upset ATIVAN (LORAZEPAM) 01/08/2005 5 - Intolerance CODEINE 03/05/2005 CYTOTEC (MISOPROSTOL) 03/26/2005 6 - Diarrhea FLOVENT (FLUTICASONE PROPIONATE) 07/24/2008 Comments: Severe headaches. LODINE (ETODOLAC) 03/26/2005 5 - Intolerance LUBIPROSTONE 11/06/2011 8 - GI Upset MACROBID (NITROFURANTOIN MONOHYD/*05/30/2005 Comments: nausea. ok with plain Macrodantin PREVACID (LANSOPRAZOLE) 03/05/2005 TOPAMAX (TOPIRAMATE) 07/25/2009 8 - GI Upset Comments: Eyes blurry, could not eat for 2 weeks ,gi symptoms Date Reviewed: 06/22/2024 Reviewed by: Mckenzie Zabala MD - Fully Assessed Reason for Visit: Research [[id number]] Cmt: [facility] IRB [id number] Prescriptions as of 07/22/2024 - perfluorohexyloctane , PF, (MIEBO, PF,) 100 % drop Use 1 Drop in eyes four times daily. - blood sugar diagnostic (BLOOD GLUCOSE TEST) test strip Test blood sugar(s) one time daily. Dx: Type 2 DM - Controlled E11.9 Insulin: No - lisinopril (ZESTRIL) 20 mg tablet Take 1 tablet by mouth once daily. - carvedilol (COREG) 12.5 mg tablet Take 1 tablet by mouth two times a day. - rosuvastatin (CRESTOR) 5 mg tablet Take 1 tablet by mouth once daily. - cephALEXin (KEFLEX) 250 mg capsule Take 1 capsule by mouth once daily. - pantoprazole DR (PROTONIX) 40 mg tablet Take 1 tablet by mouth once daily. - ELIQUIS DVT-PE TREAT 30D START 5 mg (74 tabs) Take 2 tablets by mouth two times a day. - apixaban (ELIQUIS) 5 mg tab(s) Take 1 tablet by mouth two times a day. To start after the starter pack - ondansetron (ZOFRAN) 8 mg tablet Take 1 tablet by mouth every 8 hours as needed for nausea/vomiting. - venlafaxine ER (EFFEXOR XR) 75 mg 24 hr capsule Take 1 capsule by mouth two times a day. - metFORMIN ER (GLUCOPHAGE XR) 500 mg 24 hr tablet Take 2 tablets by mouth daily with breakfast. - albuterol HFA (PROAIR HFA) 90 mcg/actuation inhaler Inhale 2 Puffs as instructed every 6 hours as needed. - benzonatate (TESSALON PERLES) 100 mg capsule Take 2 capsules by mouth three times a day as needed. - Cranberry 500 mg cap Take 1 capsule by mouth twice daily. - oxyCODONE ER (OXYCONTIN) 10 mg 12 hr tablet Take 10 mg by mouth every 12 hours. - morphine IR 15 mg tablet Take 15 mg by mouth twice daily. - L. acidophilus-L. rhamnosus (PROBIOTIC) 15 billion cell cap Take 1 scoop by mouth once daily. - therapeutic multivitamin (THERA VITAMIN) tablet Take 1 tablet by mouth once daily. - Vit I-Ibzjao-Uxewen-Grap e 92-980-12-75-20 mg cap Take by mouth. - CALCIUM CARBONATE/VITAMIN D2 (CALCIUM + VITAMIN D ORAL) Take by mouth once daily. Gummies, calcium 1000 mg and vit d 1600 IU - aspirin(ADULT ASPIRIN EC LOW STRENGTH 81 MG TAB, DELAYED RELEASE) Take by mouth twice daily. Problem List As Of Date 07/22/2024 Noted Resolved ABNORMAL CARDIOVASC STUDY NOS [R94.30] 01/08/2005 Essential hypertension [I10] 01/08/2005 Dysmetabolic syndrome X [E88.810] 01/08/2005 08/08/2016 Phlebitis and thrombophlebitis of unspecified s*01/08/2005 04/27/2020 Disorder of kidney and ureter [N28.9] GENERAL OSTEOARTHROSIS [M15.9] MYALGIA AND MYOSITIS NOS [[id number]] Depressive disorder, not elsewhere classified [* 09/08/2012 ESOPHAGEAL REFLUX [K21.9] CHRONIC CYSTITIS NEC [N30.20] 05/22/2005 OTHER SPEC DISORDER URETHRA [N36.8] 05/22/2005 KNEE JOINT REPLACEMENT STATUS [Z96.659] 12/08/2005 ROTATOR CUFF SYND NOS [M71.9, M67.919] 03/23/2006 LUMBOSACRAL NEURITIS NOS [[id number]] Pain in limb [M79.609] 02/18/2008 11/28/2015 BONE AND CARTILAGE DIS NEC [M94.8X9, M89.8X9] 03/15/2008 MIXED HYPERLIPIDEMIA [E78.2] Urinary frequency [R35.0] 08/07/2008 09/08/2012 Acute gastritis without mention of hemorrhage [*12/04/2008 11/28/2015 Displacement of lumbar intervertebral disc with*03/15/2012 Trigger finger (acquired) [M65.30] 03/15/2012 Nausea [R11.0] 11/28/2015 Gout [M10.9] Airway obstruction [J98.8] 08/29/2014 VT (ventricular tachycardia) (HCC) [I47.20] 01/09/2016 04/08/2016 Controlled type 2 diabetes mellitus without (more content not included)... Normal [facility] CNPNon 07-15-2024 CNPN Telephone (OPHTMN) CHAPARRITA BARAJAS ([id number]) 1955 F Date Time Provider Department [facility]/15[facility] During your visit today, we recorded the following information about you: Lidia Low, Research Coordinator 07/15/2024 1:59 PM Signed IRB #: [id number] PI: Mckenzie Zabala MD Study Title: Identifying Multimodal Biomarkers for Autologous Serum Tears in the Treatment of Chronic Postoperative Ocular Pain (CPOP) Called patient at the request of Dr. Zabala July 15, 2024, regarding potential interest in serum tears/CPOP study. No answer, LMOM for patient to call back Lidia at [phone] if interested in participating or learning more. Lidia Low Research Coordinator II July 15, 2024 Allergies As of Date: 07/15/2024 Noted Allergy Reaction ADHESIVE 12/17/2012 2 - Rash Comments: Bandaids- swelling, rash AMOXICILLIN 03/05/2005 8 - GI Upset ATIVAN (LORAZEPAM) 01/08/2005 5 - Intolerance CODEINE 03/05/2005 CYTOTEC (MISOPROSTOL) 03/26/2005 6 - Diarrhea FLOVENT (FLUTICASONE PROPIONATE) 07/24/2008 Comments: Severe headaches. LODINE (ETODOLAC) 03/26/2005 5 - Intolerance LUBIPROSTONE 11/06/2011 8 - GI Upset MACROBID (NITROFURANTOIN MONOHYD/*05/30/2005 Comments: nausea. ok with plain Macrodantin PREVACID (LANSOPRAZOLE) 03/05/2005 TOPAMAX (TOPIRAMATE) 07/25/2009 8 - GI Upset Comments: Eyes blurry, could not eat for 2 weeks ,gi symptoms Date Reviewed: 06/22/2024 Reviewed by: Mckenzie Zabala MD - Fully Assessed Reason for Visit: Research [[id number]] Cmt: [facility] IRB [id number] Prescriptions as of 07/15/2024 - perfluorohexyloctane , PF, (MIEBO, PF,) 100 % drop Use 1 Drop in eyes four times daily. - blood sugar diagnostic (BLOOD GLUCOSE TEST) test strip Test blood sugar(s) one time daily. Dx: Type 2 DM - Controlled E11.9 Insulin: No - lisinopril (ZESTRIL) 20 mg tablet Take 1 tablet by mouth once daily. - carvedilol (COREG) 12.5 mg tablet Take 1 tablet by mouth two times a day. - rosuvastatin (CRESTOR) 5 mg tablet Take 1 tablet by mouth once daily. - cephALEXin (KEFLEX) 250 mg capsule Take 1 capsule by mouth once daily. - pantoprazole DR (PROTONIX) 40 mg tablet Take 1 tablet by mouth once daily. - ELIQUIS DVT-PE TREAT 30D START 5 mg (74 tabs) Take 2 tablets by mouth two times a day. - apixaban (ELIQUIS) 5 mg tab(s) Take 1 tablet by mouth two times a day. To start after the starter pack - ondansetron (ZOFRAN) 8 mg tablet Take 1 tablet by mouth every 8 hours as needed for nausea/vomiting. - venlafaxine ER (EFFEXOR XR) 75 mg 24 hr capsule Take 1 capsule by mouth two times a day. - metFORMIN ER (GLUCOPHAGE XR) 500 mg 24 hr tablet Take 2 tablets by mouth daily with breakfast. - albuterol HFA (PROAIR HFA) 90 mcg/actuation inhaler Inhale 2 Puffs as instructed every 6 hours as needed. - benzonatate (TESSALON PERLES) 100 mg capsule Take 2 capsules by mouth three times a day as needed. - Cranberry 500 mg cap Take 1 capsule by mouth twice daily. - oxyCODONE ER (OXYCONTIN) 10 mg 12 hr tablet Take 10 mg by mouth every 12 hours. - morphine IR 15 mg tablet Take 15 mg by mouth twice daily. - L. acidophilus-L. rhamnosus (PROBIOTIC) 15 billion cell cap Take 1 scoop by mouth once daily. - therapeutic multivitamin (THERA VITAMIN) tablet Take 1 tablet by mouth once daily. - Vit K-Hftsif-Uwzejv-Grap e 61-325-78-75-20 mg cap Take by mouth. - CALCIUM CARBONATE/VITAMIN D2 (CALCIUM + VITAMIN D ORAL) Take by mouth once daily. Gummies, calcium 1000 mg and vit d 1600 IU - aspirin(ADULT ASPIRIN EC LOW STRENGTH 81 MG TAB, DELAYED RELEASE) Take by mouth twice daily. Problem List As Of Date 07/15/2024 Noted Resolved ABNORMAL CARDIOVASC STUDY NOS [R94.30] 01/08/2005 Essential hypertension [I10] 01/08/2005 Dysmetabolic syndrome X [E88.810] 01/08/2005 08/08/2016 Phlebitis and thrombophlebitis of unspecified s*01/08/2005 04/27/2020 Disorder of kidney and ureter [N28.9] GENERAL OSTEOARTHROSIS [M15.9] MYALGIA AND MYOSITIS NOS [[id number]] Depressive disorder, not elsewhere classified [* 09/08/2012 ESOPHAGEAL REFLUX [K21.9] CHRONIC CYSTITIS NEC [N30.20] 05/22/2005 OTHER SPEC DISORDER URETHRA [N36.8] 05/22/2005 KNEE JOINT REPLACEMENT STATUS [Z96.659] 12/08/2005 ROTATOR CUFF SYND NOS [M71.9, M67.919] 03/23/2006 LUMBOSACRAL NEURITIS NOS [[id number]] Pain in limb [M79.609] 02/18/2008 11/28/2015 BONE AND CARTILAGE DIS NEC [M94.8X9, M89.8X9] 03/15/2008 MIXED HYPERLIPIDEMIA [E78.2] Urinary frequency [R35.0] 08/07/2008 09/08/2012 Acute gastritis without mention of hemorrhage [*12/04/2008 11/28/2015 Displacement of lumbar intervertebral disc with*03/15/2012 Trigger finger (acquired) [M65.30] 03/15/2012 Nausea [R11.0] 11/28/2015 Gout [M10.9] Airway obstruction [J98.8] 08/29/2014 VT (ventricular tachycardia) (HCC) [I47.20] 01/09/2016 04/08/2016 Controlled type 2 diabetes mellitus without com (more content not included)... Normal [facility] CBC W/Diff, Automatedon 06-12 Absolute Lymph 2.23 X10 3/uL Normal 0.83-4.51 [facility] Comment on above: Performed By: #### L 501.080 #### [facility] [address] [place], [address] Absolute Neut 6.3 X10 3/uL Normal 2.0-7.7 [facility] Comment on above: Performed By: #### L 501.080 #### [facility] [address] [place], [address] Basophils/100 WBC (Bld) 0.6 % Normal 0-1 [facility] Comment on above: Performed By: #### L 501.080 #### [facility] [address] [place], [address] Eosinophils/100 WBC (Bld) 3.3 % Normal 0-5 [facility] Comment on above: Performed By: #### L 501.080 #### [facility] [address] [place], [address] Erythrocyte distribution width (RBC) [Ratio] 12.7 % Normal 11.6-14.6 [facility] Comment on above: Performed By: #### L 501.080 #### [facility] [address] [place], [address] Hematocrit (Bld) [Volume fraction] 42.2 % Normal 37-47 [facility] Comment on above: Performed By: #### L 501.080 #### [facility] [address] [place], [address] Hemoglobin (Bld) [Mass/Vol] 13.3 g/dL Normal 12.0-15.0 [facility] Comment on above: Performed By: #### L 501.080 #### [facility] [address] [place], [address] IG% 0.300 Normal 0.0-0.9 [facility] Comment on above: Result Comment: IG% - Immature Granulocytes (promyelocytes, myelocytes and metamyelocytes) > 1% indicates that a LEFT SHIFT is Present. Performed By: #### L 501.080 #### [facility] [address] [place], [address] Lymphocytes/100 WBC (Bld) 23.3 % Normal 19-41 [facility] Comment on above: Performed By: #### L 501.080 #### [facility] [address] [place], [address] MCH (RBC) [Entitic mass] 28.7 pg Normal 27.0-32.0 [facility] Comment on above: Performed By: #### L 501.080 #### [facility] [address] [place], [address] MCHC (RBC) [Mass/Vol] 31.5 g/dL Low 32-36 [facility] Comment on above: Performed By: #### L 501.080 #### [facility] [address] [place], [address] MCV (RBC) [Entitic vol] 91.1 fL Normal 81-99 [facility] Comment on above: Performed By: #### L 501.080 #### [facility] [address] [place], [address] Monocytes/100 WBC (Bld) 7.1 % Normal 0-10 [facility] Comment on above: Performed By: #### L 501.080 #### [facility] [address] [place], [address] Neutrophils/100 WBC (Bld) 65.4 % Normal 47-70 [facility] Comment on above: Performed By: #### L 501.080 #### [facility] [address] [place], [address] Nucleated RBC (Bld) [#/Vol] 0 10*3/uL Normal 0-5 [facility] Comment on above: Performed By: #### L 501.080 #### [facility] [address] [place], [address] Platelet mean volume (Bld) [Entitic vol] 9.4 fL Normal 6.2-12.0 [facility] Comment on above: Performed By: #### L 501.080 #### [facility] [address] [place], [address] Platelets (Bld) [#/Vol] 313 10*3/uL Normal 150-450 [facility] Comment on above: Performed By: #### L 501.080 #### [facility] [address] [place], [address] RBC (Bld) [#/Vol] 4.63 10*6/uL Normal 4.2-5.4 [facility] Comment on above: Performed By: #### L 501.080 #### [facility] [address] [place], [address] RDW SD 41.6 fl Normal 35.1-43.9 [facility] Comment on above: Performed By: #### L 501.080 #### [facility] [address] [place], [address] WBC (Bld) [#/Vol] 9.6 10*3/uL Normal 4.4-11.0 [facility] Comment on above: Performed By: #### L 501.080 #### [facility] [address] [place], [address] Chloride measurementOrdered By: Abhi Ellison on 07-07-2024 Chloride [Moles/Vol] 103 mmol/L 96-108 [facility] Comprehensive Metabolic Prof ilon 07-07-2024 Albumin [Mass/Vol] 3.8 g/dL Normal 3.4-4.8 [facility] Comment on above: Performed By: #### L 501.080 #### [facility] [address] [place], [address] Albumin/Globulin [Mass ratio] 1.3 {ratio} Normal 0.9-2.4 [facility] Comment on above: Performed By: #### L 501.080 #### [facility] [address] [place], [address] ALK PHOS 103 U/L Normal 35-104 [facility] Comment on above: Performed By: #### L 501.080 #### [facility] [address] [place], [address] ALT [Catalytic activity/Vol] 22 U/L Normal <=34 [facility] Comment on above: Performed By: #### L 501.080 #### [facility] [address] [place], [address] Anion gap [Moles/Vol] 12 mmol/L Normal 5-15 [facility] Comment on above: Performed By: #### L 501.080 #### [facility] [address] [place], [address] AST [Catalytic activity/Vol] 27 U/L Normal <=31 [facility] Comment on above: Performed By: #### L 501.080 #### [facility] [address] [place], [address] Bilirubin [Mass/Vol] 0.29 mg/dL Normal 0.00-1.30 [facility] Comment on above: Performed By: #### L 501.080 #### [facility] [address] [place], [address] BUN/CRE 14.7 RATIO Normal 10-20 [facility] Comment on above: Performed By: #### L 501.080 #### [facility] [address] [place], [address] Calcium [Mass/Vol] 9.2 mg/dL Normal 7.6-11.0 [facility] Comment on above: Performed By: #### L 501.080 #### [facility] [address] [place], [address] Chloride [Moles/Vol] 103 mmol/L Normal 96-108 [facility] Comment on above: Performed By: #### L 501.080 #### [facility] [address] [place], [address] CO2 [Moles/Vol] 26.2 mmol/L Normal 22.0-29.0 [facility] Comment on above: Performed By: #### L 501.080 #### [facility] [address] [place], [address] Creatinine [Mass/Vol] 1.0 mg/dL Normal 0.6-1.0 [facility] Comment on above: Performed By: #### L 501.080 #### [facility] [address] [place], [address] ECRCL 53.09 ml/min Normal [facility] Comment on above: Performed By: #### L 501.080 #### [facility] [address] [place], [address] GFR/1.73 sq M.predicted among non-blacks MDRD (S/P/Bld) [Vol rate/Area] 60 mL/min/{1.73_m2} Normal >60 [facility] Comment on above: Result Comment: mL/m in/1.73m2 CKD-EPI Creatinine Equation (2020) Performed By: #### L 501.080 #### [facility] [address] [place], [address] Globulin (S) [Mass/Vol] 3.0 g/dL Normal 2.2-4.2 [facility] Comment on above: Performed By: #### L 501.080 #### [facility] [address] [place], [address] Glucose [Mass/Vol] 107 mg/dL High 70-99 [facility] Comment on above: Performed By: #### L 501.080 #### [facility] [address] [place], [address] Potassium [Moles/Vol] 4.4 mmol/L Normal 3.3-5.1 [facility] Comment on above: Performed By: #### L 501.080 #### [facility] [address] [place], [address] Sodium [Moles/Vol] 141 mmol/L Normal 133-145 [facility] Comment on above: Performed By: #### L 501.080 #### [facility] [address] [place], [address] T PROT 6.8 g/dL Normal 5.9-8.4 [facility] Comment on above: Performed By: #### L 501.080 #### [facility] [address] [place], [address] Urea nitrogen [Mass/Vol] 15 mg/dL Normal 4-19 [facility] Comment on above: Performed By: #### L 501.080 #### [facility] [address] [place], [address] D-Dimer Quantitative (DVT/PE )on 07-07-2024 D-DIMER QUANT 0.74 FEU/ug/m Invalid Interpretation Code 0.27-0.49 [facility] Comment on above: Order Comment: CRITI ALCIDES VALUE CALLED TO LUKE CHAN07/07/24 1502 Izzy Khoa.RESULTS READ BACK BY SAME. Result Comment: D-Di saud ELEVATED (>0.49): Additional studies and clinical assessments are indicated to conclude diagnosis of: Deep Vein Thrombosis (DVT) or Pulmonary Embolism (PE) Performed By: #### L 501.080 #### [facility] [address] [place], [address] LDHon 07-07-2024 LDH 153 U/L Normal 84-246 [facility] Comment on above: Order Comment: 1 Performed By: #### L 501.080 #### [facility] [address] [place], [address] Lactate dehydrogenase (LDH) measurementOrdered By: Abhi Ellison on 07-07-2024 LDH [Catalytic activity/Vol] 153 U/L 84-246 [facility] Oncology Visit Reporton 06-12 Oncology Visit Report [facility] [place] [facility] [address] [place], [place] [address] OFFICE VISIT Date of Service: 07/07/24 1445 MR#: [id number] Acct: [id number] Name: CHAPARRITA BARAJAS Rep #: [id number] : 1955 From: Chelo Beckman NP FREIGHT RATE CLERK -C Age/Sex: 69/F Location: [facility] Status: Signed HPI Subjective Date of Service 07/07/24 Chief Complaint F/u for DVT management. History of Present Illness 69-year-old woman developed LLE edema after a week of immobility secondary to influenza. She presented to [facility] ED and Doppler on 02/14/2024 showed left femoral vein acute DVT. She was then started on Eliquis. Developed hematuria and went back to the ER on 02/23/2024. She was subsequently admitted to the hospital, Eliquis was discontinued and she had [place] filter placed. She was referred to [facility] March 2024 to discuss further management of DVT. Underwent cystoscopy with urology and reportedly was normal. Urine cytology negative. Advised to resume Eliquis April 2024. 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 Historically she experienced a RLE DVT following trauma/fracture of her right knee, RLE DVT after being on oral contraceptives for a short time, a superficial clot involving her LUE, and DVT of LLE after another surgical procedure. She has had previous episodes of clotting which were related to surgery. She still had swelling of the Left leg. Was seen by Urology and cystoscopy was reportedly normal. Interval History The patient is presenting to clinic for a planned follow up. Confirms good adherence and tolerance to Eliquis 5 mg BID. Bruises easily but denies any overt bleeding episodes, including recurrence of hematuria. Has LLE wrapped with michael wrap, reports lymphedema from DVT has exacerbated psoriasis. Follows with Dr. Greene. Meets with vascular in 2 weeks. Patient states she completed a colonoscopy in 2023 was told she did not need to repeat for 10 years, completed mammogram last week at [facility], received letter imaging was normal. Quit smoking > 30 years ago. Specifically denies any incidence of post menapausal bleeding, unexplained weight loss, dysphagia, cough, SOB, or new/persistent pain. PFSH Medical History DVT (deep venous thrombosis) Hematuria Trigger finger of both hands Bilateral carpal tunnel syndrome Diabetes type 2, controlled Arthritis Hypertension Surgical History S/P IVC filter History of arthroplasty of finger of left hand History of knee replacement History of back surgery H/O: hysterectomy History of hip replacement H/O shoulder replacement Family History Grandmother Myocardial infarction Grandfather Aneurysm Mother Kidney failure Uncle Myocardial infarction Social History household members: spouse Smoking Status: Former smoker Tobacco: How many years used: 30 alcohol intake: current alcohol intake frequency: holidays/special occasions only substance use type: does not use ROS ROS Narrative Negative except as documented in the interval HPI Intake Vital Signs 05/05/24 11:07 07/07/24 14:46 Height 5 ft 2 in 5 ft 2 in Weight: 190 lb 193 lb 9 oz BMI 34.7 35.4 BP 132/72 H 103/68 Blood Pressure Location Lt brachial Lt brachial Position Sitting Sitting Respiration 16 18 Pulse 65 80 Pulse Source Monitor Monitor Temp 98.2 F 97 F L Temperature Source Temporal Artery Temporal Artery Pulse Oximetry (%) 96 95 Oxygen Delivery Method room air room air Intake Is patient in pain?: Yes (lymphedema in left leg and right ankle) Pain scale (1-10): 6 Allergies codeine Allergy (Verified 07/07/24 14:53) Other topiramate (From Topamax) Allergy (Verified 07/07/24 14:53) Nausea amoxicillin (Amoxicillin) Adverse Reaction (Verified 07/07/24 14:53) Nausea etodolac (From Lodine) Adverse Reaction (Verified 07/07/24 14:53) Diarrhea fluticasone propionate (From Flovent Diskus) Adverse Reaction (Verified 07/07/24 14:53) headache lansoprazole (From Prevacid) Adverse Reaction (Verified 07/07/24 14:53) Unknown lorazepam (From Ativan) Adverse Reaction (Verified 07/07/24 14:53) Unknown lubiprostone Adverse Reaction (Verified 07/07/24 14:53) Nausea misoprostol (From Cytotec) Adverse Reaction (Verified 07/07/24 14:53) Diarrhea nitrofurantoin (From Macrobid) Adverse Reaction (Verified 07/07/24 14:53) Nausea nitrofurantoin macrocrystalline (From Macrobid) Adverse Reaction (Verified 07/07/24 14:53) Nausea Medications ???Medication ???Instructions ???Recorded ???Confirmed ???Type atenolol 50 mg tablet 50 mg PO DAILY (more content not included)... Normal [facility] CNTHERAPYon 06-14-2024 CNTHERAPY OT/PT/Speech Visit (PTWS) CHAPARRITA BARAJAS ([id number]) 1955 F Date Time Provider Department 06/14/24 2:15 PM ROMMEL WIN PTWS Date Time Provider Department Center 06/14/2024 2:15 PM [id number], COLIN PTWS Adina Junior Reason for Visit: Patient Left Without Being Seen [2005] PT Discharge [752] Primary Visit Diagnosis:Gait instability [R26.81] Other Visit Diagnosis:Frequent falls [R29.6] Allergies As of Date: 06/14/2024 Noted Allergy Reaction ADHESIVE 12/17/2012 2 - Rash Comments: Bandaids- swelling, rash AMOXICILLIN 03/05/2005 8 - GI Upset ATIVAN (LORAZEPAM) 01/08/2005 5 - Intolerance CODEINE 03/05/2005 CYTOTEC (MISOPROSTOL) 03/26/2005 6 - Diarrhea FLOVENT (FLUTICASONE PROPIONATE) 07/24/2008 Comments: Severe headaches. LODINE (ETODOLAC) 03/26/2005 5 - Intolerance LUBIPROSTONE 11/06/2011 8 - GI Upset MACROBID (NITROFURANTOIN MONOHYD/*05/30/2005 Comments: nausea. ok with plain Macrodantin PREVACID (LANSOPRAZOLE) 03/05/2005 TOPAMAX (TOPIRAMATE) 07/25/2009 8 - GI Upset Comments: Eyes blurry, could not eat for 2 weeks ,gi symptoms Date Reviewed: 04/25/2024 Reviewed by: Judith Whittington LPN - Fully Assessed Prescriptions as of 08/24/2024 - perfluorohexyloctane , PF, (MIEBO, PF,) 100 % drop Use 1 Drop in eyes four times daily. - blood sugar diagnostic (BLOOD GLUCOSE TEST) test strip Test blood sugar(s) one time daily. Dx: Type 2 DM - Controlled E11.9 Insulin: No - lisinopril (ZESTRIL) 20 mg tablet Take 1 tablet by mouth once daily. - carvedilol (COREG) 12.5 mg tablet Take 1 tablet by mouth two times a day. - rosuvastatin (CRESTOR) 5 mg tablet Take 1 tablet by mouth once daily. - cephALEXin (KEFLEX) 250 mg capsule Take 1 capsule by mouth once daily. - pantoprazole DR (PROTONIX) 40 mg tablet Take 1 tablet by mouth once daily. - ELIQUIS DVT-PE TREAT 30D START 5 mg (74 tabs) Take 2 tablets by mouth two times a day. - apixaban (ELIQUIS) 5 mg tab(s) Take 1 tablet by mouth two times a day. To start after the starter pack - ondansetron (ZOFRAN) 8 mg tablet Take 1 tablet by mouth every 8 hours as needed for nausea/vomiting. - venlafaxine ER (EFFEXOR XR) 75 mg 24 hr capsule Take 1 capsule by mouth two times a day. - metFORMIN ER (GLUCOPHAGE XR) 500 mg 24 hr tablet Take 2 tablets by mouth daily with breakfast. - albuterol HFA (PROAIR HFA) 90 mcg/actuation inhaler Inhale 2 Puffs as instructed every 6 hours as needed. - benzonatate (TESSALON PERLES) 100 mg capsule Take 2 capsules by mouth three times a day as needed. - Cranberry 500 mg cap Take 1 capsule by mouth twice daily. - oxyCODONE ER (OXYCONTIN) 10 mg 12 hr tablet Take 10 mg by mouth every 12 hours. - morphine IR 15 mg tablet Take 15 mg by mouth twice daily. - L. acidophilus-L. rhamnosus (PROBIOTIC) 15 billion cell cap Take 1 scoop by mouth once daily. - therapeutic multivitamin (THERA VITAMIN) tablet Take 1 tablet by mouth once daily. - Vit J-Unajng-Jdrnwt-Grap e 98-822-20-75-20 mg cap Take by mouth. - CALCIUM CARBONATE/VITAMIN D2 (CALCIUM + VITAMIN D ORAL) Take by mouth once daily. Gummies, calcium 1000 mg and vit d 1600 IU - aspirin(ADULT ASPIRIN EC LOW STRENGTH 81 MG TAB, DELAYED RELEASE) Take by mouth twice daily. Normal [facility] [id number] 06-02-2024 [id number] O ID: [id number] Author: ROMMEL WIN PT Service: ? Author Type: Physical Therapist Type: [id number] Filed: 06/02/2024 14:58 Note Text: [facility] Physical Therapy Plan of Care Certification Patient Name: Chaparrita Barajas : 1955 [facility] #: [id number] Date: 05/23/2024 To: Sheri Hutchins MD From Therapist: Rommel Win PT RE: Patient Certification/ Recertification Your review, approval and electronic signature are required in order to comply with Payor: MEDICARE / Plan: MEDICARE A AND B / Product Type: Medicare / regulations. The identified Physical Therapy PLAN OF CARE for the patient is as follows: R29.6 Frequent falls (primary encounter diagnosis) R26.81 Gait instability PLAN OF CARE: Assessment: Chaparrita Barajas presents with chief complaint of balance/falls that interferes with stair negotiation, physical activities, walking in the community, standing (Walking with a laundry basket, Uneven Surfaces, Incline/Declines.). The patient presents with impairments in ADL's, balance, gait, independence in exercise, overall function, strength, symptom management, and functional performance testing indicates risk for falls. PROMIS? (Patient-Reported Outcomes Measurement Information System) scores were reviewed and identified as a rehabilitation concern. Prognosis for therapy is Good due to: current objective clinical presentation. The patient will benefit from skilled therapy services to meet the goals established for this plan of care as noted below. Goals for Episode of Care: established 05/23/24 Patient reported outcome of physical function will increase T-score by a minimum 5 points. [place] in home exercise program. Patient will report no falls. Improve score on Timed Up and Go Test to <10 seconds to reflect decreased fall risk. Improve score on 30 Second Chair Stand to 11 repetitions to reflect decreased fall risk. Improve score on 5xSTS to <12.5sec without use of BUE to indicate increased bilat leg strength. Increase strength of BLE to 4+/5 in order to decrease fall risk and improve overall activity tolerance. Patient Goals: Improve balance and decrease falls. Time Frame for Goals and Treatment : 07/04/24 Planned Interventions, Frequency, and Duration: Current Frequency: 2x/week Duration: 4 weeks Total Number of Visits Planned: 8 Planned Treatment Interventions: Therapeutic exercise (65766), Neuromuscular re-education (90846), Manual therapy (61142), Therapeutic activities (69755), Self-jail management (99575), Patient/Family/Careg iver Education PLAN FOR NEXT VISIT: Review, correct and progress HEP to tolerance. Static AND dynamic gait. B LE OC Strength. Patient demonstrates good understanding of plan of care and treatment. The above goals and plan of care were discussed and agreed upon by patient/family. For further details regarding this patient refer to the Physical Therapy electronically documented visit dated 05/23/2024. Provider Attestation I have reviewed the treatment plan for Chaparrita R Jenn, [facility]# [id number] for the period of 05/23/24 -- 07/04/24, established on 05/23/2024. Signature certifies the need for therapy services. Normal [facility] CNTHERAPYon 06-02-2024 CNTHERAPY OT/PT/Speech Visit (PTWS) CHAPARRITA BARAJAS ([id number]) 1955 F Date Time Provider Department 06/02/24 3:00 PM ROMMEL WIN PTWS Date Time Provider Department Center 06/02/2024 3:00 PM [id number], COLIN PTWS Adina Junior Reason for Visit: Physical Therapy [503] Primary Visit Diagnosis:Frequent falls [R29.6] Other Visit Diagnosis:Gait instability [R26.81] Allergies As of Date: 06/02/2024 Noted Allergy Reaction ADHESIVE 12/17/2012 2 - Rash Comments: Bandaids- swelling, rash AMOXICILLIN 03/05/2005 8 - GI Upset ATIVAN (LORAZEPAM) 01/08/2005 5 - Intolerance CODEINE 03/05/2005 CYTOTEC (MISOPROSTOL) 03/26/2005 6 - Diarrhea FLOVENT (FLUTICASONE PROPIONATE) 07/24/2008 Comments: Severe headaches. LODINE (ETODOLAC) 03/26/2005 5 - Intolerance LUBIPROSTONE 11/06/2011 8 - GI Upset MACROBID (NITROFURANTOIN MONOHYD/*05/30/2005 Comments: nausea. ok with plain Macrodantin PREVACID (LANSOPRAZOLE) 03/05/2005 TOPAMAX (TOPIRAMATE) 07/25/2009 8 - GI Upset Comments: Eyes blurry, could not eat for 2 weeks ,gi symptoms Date Reviewed: 04/25/2024 Reviewed by: Judith Whittington LPN - Fully Assessed Prescriptions as of 06/02/2024 - lisinopril (ZESTRIL) 20 mg tablet Take 1 tablet by mouth once daily. - carvedilol (COREG) 12.5 mg tablet Take 1 tablet by mouth two times a day. - rosuvastatin (CRESTOR) 5 mg tablet Take 1 tablet by mouth once daily. - cephALEXin (KEFLEX) 250 mg capsule Take 1 capsule by mouth once daily. - pantoprazole DR (PROTONIX) 40 mg tablet Take 1 tablet by mouth once daily. - ELIQUIS DVT-PE TREAT 30D START 5 mg (74 tabs) Take 2 tablets by mouth two times a day. - apixaban (ELIQUIS) 5 mg tab(s) Take 1 tablet by mouth two times a day. To start after the starter pack - ondansetron (ZOFRAN) 8 mg tablet Take 1 tablet by mouth every 8 hours as needed for nausea/vomiting. - venlafaxine ER (EFFEXOR XR) 75 mg 24 hr capsule Take 1 capsule by mouth two times a day. - metFORMIN ER (GLUCOPHAGE XR) 500 mg 24 hr tablet Take 2 tablets by mouth daily with breakfast. - blood sugar diagnostic (BLOOD GLUCOSE TEST) test strip Test blood sugar(s) one time daily. Dx: Type 2 DM - Controlled E11.9 Insulin: No - albuterol HFA (PROAIR HFA) 90 mcg/actuation inhaler Inhale 2 Puffs as instructed every 6 hours as needed. - benzonatate (TESSALON PERLES) 100 mg capsule Take 2 capsules by mouth three times a day as needed. - Cranberry 500 mg cap Take 1 capsule by mouth twice daily. - oxyCODONE ER (OXYCONTIN) 10 mg 12 hr tablet Take 10 mg by mouth every 12 hours. - morphine IR 15 mg tablet Take 15 mg by mouth twice daily. - L. acidophilus-L. rhamnosus (PROBIOTIC) 15 billion cell cap Take 1 scoop by mouth once daily. - therapeutic multivitamin (THERA VITAMIN) tablet Take 1 tablet by mouth once daily. - Vit H-Rvwhmv-Djcdck-Grap e 72-460-68-75-20 mg cap Take by mouth. - CALCIUM CARBONATE/VITAMIN D2 (CALCIUM + VITAMIN D ORAL) Take by mouth once daily. Gummies, calcium 1000 mg and vit d 1600 IU - aspirin(ADULT ASPIRIN EC LOW STRENGTH 81 MG TAB, DELAYED RELEASE) Take by mouth twice daily. Normal [facility] CNTHERAPYon 05-23-2024 CNTHERAPY OT/PT/Speech Visit (PTWS) CHAPARRITA BARAJAS ([id number]) 1955 F Date Time Provider Department 05/23/24 12:15 PM ROMMEL WIN PTWS Date Time Provider Department Center 05/23/2024 12:15 PM [id number], COLIN PTWS Adina Junior Reason for Visit: PT Eval [747] Primary Visit Diagnosis:Frequent falls [R29.6] Other Visit Diagnosis:Gait instability [R26.81] Allergies As of Date: 05/23/2024 Noted Allergy Reaction ADHESIVE 12/17/2012 2 - Rash Comments: Bandaids- swelling, rash AMOXICILLIN 03/05/2005 8 - GI Upset ATIVAN (LORAZEPAM) 01/08/2005 5 - Intolerance CODEINE 03/05/2005 CYTOTEC (MISOPROSTOL) 03/26/2005 6 - Diarrhea FLOVENT (FLUTICASONE PROPIONATE) 07/24/2008 Comments: Severe headaches. LODINE (ETODOLAC) 03/26/2005 5 - Intolerance LUBIPROSTONE 11/06/2011 8 - GI Upset MACROBID (NITROFURANTOIN MONOHYD/*05/30/2005 Comments: nausea. ok with plain Macrodantin PREVACID (LANSOPRAZOLE) 03/05/2005 TOPAMAX (TOPIRAMATE) 07/25/2009 8 - GI Upset Comments: Eyes blurry, could not eat for 2 weeks ,gi symptoms Date Reviewed: 04/25/2024 Reviewed by: Judith Whittington LPN - Fully Assessed Prescriptions as of 05/31/2024 - lisinopril (ZESTRIL) 20 mg tablet Take 1 tablet by mouth once daily. - carvedilol (COREG) 12.5 mg tablet Take 1 tablet by mouth two times a day. - rosuvastatin (CRESTOR) 5 mg tablet Take 1 tablet by mouth once daily. - cephALEXin (KEFLEX) 250 mg capsule Take 1 capsule by mouth once daily. - pantoprazole DR (PROTONIX) 40 mg tablet Take 1 tablet by mouth once daily. - ELIQUIS DVT-PE TREAT 30D START 5 mg (74 tabs) Take 2 tablets by mouth two times a day. - apixaban (ELIQUIS) 5 mg tab(s) Take 1 tablet by mouth two times a day. To start after the starter pack - ondansetron (ZOFRAN) 8 mg tablet Take 1 tablet by mouth every 8 hours as needed for nausea/vomiting. - venlafaxine ER (EFFEXOR XR) 75 mg 24 hr capsule Take 1 capsule by mouth two times a day. - metFORMIN ER (GLUCOPHAGE XR) 500 mg 24 hr tablet Take 2 tablets by mouth daily with breakfast. - blood sugar diagnostic (BLOOD GLUCOSE TEST) test strip Test blood sugar(s) one time daily. Dx: Type 2 DM - Controlled E11.9 Insulin: No - albuterol HFA (PROAIR HFA) 90 mcg/actuation inhaler Inhale 2 Puffs as instructed every 6 hours as needed. - benzonatate (TESSALON PERLES) 100 mg capsule Take 2 capsules by mouth three times a day as needed. - Cranberry 500 mg cap Take 1 capsule by mouth twice daily. - oxyCODONE ER (OXYCONTIN) 10 mg 12 hr tablet Take 10 mg by mouth every 12 hours. - morphine IR 15 mg tablet Take 15 mg by mouth twice daily. - L. acidophilus-L. rhamnosus (PROBIOTIC) 15 billion cell cap Take 1 scoop by mouth once daily. - therapeutic multivitamin (THERA VITAMIN) tablet Take 1 tablet by mouth once daily. - Vit S-Gfdmuk-Pykgtb-Grap e 34-795-50-75-20 mg cap Take by mouth. - CALCIUM CARBONATE/VITAMIN D2 (CALCIUM + VITAMIN D ORAL) Take by mouth once daily. Gummies, calcium 1000 mg and vit d 1600 IU - aspirin(ADULT ASPIRIN EC LOW STRENGTH 81 MG TAB, DELAYED RELEASE) Take by mouth twice daily. [place] Process: Therapy (PT/OT/Speech/Resp) ID: [id number] 05/23/2024 1:02 PM Author: ROMMEL WIN Signed by ROMMEL WIN PT on 05/23/2024 at 1:02 PM Document text: Program_ID:[id number] Access Code: [email or web address] URL: [email or web address] Date: 05-23-2024 Prepared By: Rommel Win Program Notes Exercises - Standing Hip Abduction with Counter Support - 2 x daily - 7 x weekly - 2 sets - 8-10 reps - Seated March - 2 x daily - 7 x weekly - 2 sets - 10 reps - Seated Hip Adduction Isometrics with Ball - 2 x daily - 7 x weekly - 2 sets - 10 reps - Supine Active Straight Leg Raise - 2 x daily - 7 x weekly - 2 sets - 6-10 reps -------- Normal [facility] GENEVA SCREENING W TOMOon 05-23 GENEVA SCREENING W SABAS * * *Final Report* * * DATE OF EXAM: May 23 2024 1:48PM [facility] 0582 - GENEVA SCREENING W SABAS / PROCEDURE REASON: Encounter for screening mammogram for breast cancer * * * * Physician Interpretation * * * * RESULT: [address] [address] [place] [address] #[id number] - GENEVA SCREENING W SABAS HISTORY: Patient is 69 years old and is seen for screening and is asymptomatic in both breasts. Patient states no personal history of breast cancer. Patient states no personal history of other cancers. COMPARISON STUDIES: The present examination has been compared to prior imaging studies dated 01/30/2020 (mammogram), 02/15/2021 (mammogram), 04/17/2022 (mammogram) and 05/21/2023 (mammogram). MAMMOGRAM TECHNIQUE: The study was acquired using full field digital technology and interpreted from soft copy. Digital Breast Tomosynthesis (DBT) images were obtained and used to assist in the interpretation of this examination. Computer-aided detection was utilized by the radiologist in the interpretation of this examination. MAMMOGRAM FINDINGS: There are scattered areas of fibroglandular density. No suspicious masses, calcifications or other abnormalities are seen in either breast. There are no significant interval changes. IMPRESSION: There is no mammographic evidence of malignancy in either breast. Routine screening mammogram is recommended. Annual mammogram will be due in 1 year. BI-RADS Category 1: Negative RISK: Based on the Tyrer-Cuzick (TC) risk assessment model, this patient has a 1.4% lifetime risk of developing breast cancer, meaning they are at average risk for developing breast cancer. However, this is only an estimate based on available history provided on the patient's questionnaire. We encourage all patients to talk with their providers about these results, further recommendations for managing breast health, and appropriate supplemental screening options if the patient has dense breast tissue. Interpreting Radiologist: Naina Shelton M.D. Electronically signed on: 05/24/2024 Marine Operations Coordinator: FABIOLA Transcribe Date/Time: May 23 2024 1:31P Dictated by: NAINA SHELTON MD This examination was interpreted and the report reviewed and electronically signed by: NAINA SHELTON MD on May 24 2024 7:50AM EST [id number] CN Normal [facility] THERAPY NTon 05-23-2024 THERAPY NT HNO ID: [id number] Author: ROMMEL WIN, PT Service: ? Author Type: Physical Therapist Type: Therapy (PT/OT/Speech/Resp) Filed: 05/23/2024 13:02 Note Text: Program_ID:[id number] Access Code: [email or web address] URL: [email or web address] Date: 01-13-2025 Prepared By: Rommel Win Program Notes Exercises - Standing Hip Abduction with Counter Support - 2 x daily - 7 x weekly - 2 sets - 8-10 reps - Seated March - 2 x daily - 7 x weekly - 2 sets - 10 reps - Seated Hip Adduction Isometrics with Ball - 2 x daily - 7 x weekly - 2 sets - 10 reps - Supine Active Straight Leg Raise - 2 x daily - 7 x weekly - 2 sets - 6-10 reps Normal [facility] CBC W/Diff, Automatedon 12-2 Absolute Lymph 2.48 X10 3/uL Normal 0.83-4.51 [facility] Comment on above: Performed By: #### L 300.8000, L504.2610, L100.0100, L500.4050 ####[facility] [address] [place], [address] Absolute Neut 5.4 X10 3/uL Normal 2.0-7.7 [facility] Comment on above: Performed By: #### L 300.8000, L504.2610, L100.0100, L500.4050 ####[facility] [address] [place], [address] Basophils/100 WBC (Bld) 0.6 % Normal 0-1 [facility] Comment on above: Performed By: #### L 300.8000, L504.2610, L100.0100, L500.4050 ####[facility] [address] [place], [address] Eosinophils/100 WBC (Bld) 4.7 % Normal 0-5 [facility] Comment on above: Performed By: #### L 300.8000, L504.2610, L100.0100, L500.4050 ####[facility] [address] [place], [address] Erythrocyte distribution width (RBC) [Ratio] 12.4 % Normal 11.6-14.6 [facility] Comment on above: Performed By: #### L 300.8000, L504.2610, L100.0100, L500.4050 ####[facility] [address] [place], [address] Hematocrit (Bld) [Volume fraction] 40.1 % Normal 37-47 [facility] Comment on above: Performed By: #### L 300.8000, L504.2610, L100.0100, L500.4050 ####[facility] [address] [place], [address] Hemoglobin (Bld) [Mass/Vol] 12.4 g/dL Normal 12.0-15.0 [facility] Comment on above: Performed By: #### L 300.8000, L504.2610, L100.0100, L500.4050 ####[facility] [address] [place], [address] IG% 0.200 Normal 0.0-0.9 [facility] Comment on above: Result Comment: IG% - Immature Granulocytes (promyelocytes, myelocytes and metamyelocytes) > 1% indicates that a LEFT SHIFT is Present. Performed By: #### L 300.8000, L504.2610, L100.0100, L500.4050 ####[facility] [address] [place], [address] Lymphocytes/100 WBC (Bld) 27.6 % Normal 19-41 [facility] Comment on above: Performed By: #### L 300.8000, L504.2610, L100.0100, L500.4050 ####[facility] [address] [place], [address] MCH (RBC) [Entitic mass] 28.9 pg Normal 27.0-32.0 [facility] Comment on above: Performed By: #### L 300.8000, L504.2610, L100.0100, L500.4050 ####[facility] [address] [place], [address] MCHC (RBC) [Mass/Vol] 30.9 g/dL Low 32-36 [facility] Comment on above: Performed By: #### L 300.8000, L504.2610, L100.0100, L500.4050 ####[facility] [address] [place], [address] MCV (RBC) [Entitic vol] 93.5 fL Normal 81-99 [facility] Comment on above: Performed By: #### L 300.8000, L504.2610, L100.0100, L500.4050 ####[facility] [address] [place], [address] Monocytes/100 WBC (Bld) 6.8 % Normal 0-10 [facility] Comment on above: Performed By: #### L 300.8000, L504.2610, L100.0100, L500.4050 ####[facility] [address] [place], [address] Neutrophils/100 WBC (Bld) 60.1 % Normal 47-70 [facility] Comment on above: Performed By: #### L 300.8000, L504.2610, L100.0100, L500.4050 ####[facility] [address] [place], [address] Nucleated RBC (Bld) [#/Vol] 0 10*3/uL Normal 0-5 [facility] Comment on above: Performed By: #### L 300.8000, L504.2610, L100.0100, L500.4050 ####[facility] [address] [place], [address] Platelet mean volume (Bld) [Entitic vol] 9.8 fL Normal 6.2-12.0 [facility] Comment on above: Performed By: #### L 300.8000, L504.2610, L100.0100, L500.4050 ####[facility] [address] [place], [address] Platelets (Bld) [#/Vol] 272 10*3/uL Normal 150-450 [facility] Comment on above: Performed By: #### L 300.8000, L504.2610, L100.0100, L500.4050 ####[facility] [address] [place], [address] RBC (Bld) [#/Vol] 4.29 10*6/uL Normal 4.2-5.4 [facility] Comment on above: Performed By: #### L 300.8000, L504.2610, L100.0100, L500.4050 ####[facility] [address] [place], [address] RDW SD 42.6 fl Normal 35.1-43.9 [facility] Comment on above: Performed By: #### L 300.8000, L504.2610, L100.0100, L500.4050 ####[facility] [address] [place], [address] WBC (Bld) [#/Vol] 9.0 10*3/uL Normal 4.4-11.0 [facility] Comment on above: Performed By: #### L 300.8000, L504.2610, L100.0100, L500.4050 ####[facility] [address] [place], [address] Comprehensive Metabolic Prof [facility] 05-05-2024 Albumin [Mass/Vol] 3.5 g/dL Normal 3.2-5.0 [facility] Comment on above: Order Comment: 1 Performed By: #### L 300.8000, L504.2610, L100.0100, L500.4050 ####[facility] [address] [place], [address] Albumin/Globulin [Mass ratio] 1.0 {ratio} Normal 0.9-2.4 [facility] Comment on above: Order Comment: 1 Performed By: #### L 300.8000, L504.2610, L100.0100, L500.4050 ####[facility] [address] [place], [address] ALK P 91 U/L Normal 45-117 [facility] Comment on above: Order Comment: 1 Performed By: #### L 300.8000, L504.2610, L100.0100, L500.4050 ####[facility] [address] [place], [address] ALT [Catalytic activity/Vol] 16 U/L Normal 13-56 [facility] Comment on above: Order Comment: 1 Performed By: #### L 300.8000, L504.2610, L100.0100, L500.4050 ####[facility] [address] [place], [address] AST [Catalytic activity/Vol] 12 U/L Low 15-37 [facility] Comment on above: Order Comment: 1 Performed By: #### L 300.8000, L504.2610, L100.0100, L500.4050 ####[facility] [address] [place], [address] Bilirubin [Mass/Vol] 0.40 mg/dL Normal 0.20-1.00 [facility] Comment on above: Order Comment: 1 Result Comment: For patients on eltrombopag therapy, use of Dimension [place] TBIL is not recommended. Performed By: #### L 300.8000, L504.2610, L100.0100, L500.4050 ####[facility] [address] [place], [address] BUN/CRE 14.3 RATIO Normal 10-20 [facility] Comment on above: Order Comment: 1 Performed By: #### L 300.8000, L504.2610, L100.0100, L500.4050 ####[facility] [address] [place], [address] CA,Total 9.1 mg/dL Normal 8.5-10.1 [facility] Comment on above: Order Comment: 1 Performed By: #### L 300.8000, L504.2610, L100.0100, L500.4050 ####[facility] [address] [place], [address] Chloride [Moles/Vol] 104 mmol/L Normal 98-107 [facility] Comment on above: Order Comment: 1 Performed By: #### L 300.8000, L504.2610, L100.0100, L500.4050 ####[facility] [address] [place], [address] CO2 [Moles/Vol] 33.0 mmol/L High 21.0-32.0 [facility] Comment on above: Order Comment: 1 Performed By: #### L 300.8000, L504.2610, L100.0100, L500.4050 ####[facility] [address] [place], [address] Creatinine [Mass/Vol] 1.05 mg/dL High 0.55-1.02 [facility] Comment on above: Order Comment: 1 Result Comment: The validity of the calculated GFR GFRAA in patients over 70 years has not been determined. Clinical correlation is essential. Performed By: #### L 300.8000, L504.2610, L100.0100, L500.4050 ####[facility] [address] [place], [address] ECRCL 50.06 ml/min Normal [facility] Comment on above: Order Comment: 1 Performed By: #### L 300.8000, L504.2610, L100.0100, L500.4050 ####[facility] [address] [place], [address] EST GFR - AA 66 mL/min Normal >60 [facility] Comment on above: Order Comment: 1 Result Comment: Afri can [place] GFR Calc Performed By: #### L 300.8000, L504.2610, L100.0100, L500.4050 ####[facility] [address] [place], [address] GAP 3 Low 5-15 [facility] Comment on above: Order Comment: 1 Performed By: #### L 300.8000, L504.2610, L100.0100, L500.4050 ####[facility] [address] [place], [address] GFR/1.73 sq M.predicted among non-blacks MDRD (S/P/Bld) [Vol rate/Area] 55 mL/min/{1.73_m2} Low >60 [facility] Comment on above: Order Comment: 1 Result Comment: Non- GFR Calc Performed By: #### L 300.8000, L504.2610, L100.0100, L500.4050 ####[facility] [address] [place], [address] Globulin (S) [Mass/Vol] 3.6 g/dL Normal 2.2-4.2 [facility] Comment on above: Order Comment: 1 Performed By: #### L 300.8000, L504.2610, L100.0100, L500.4050 ####[facility] [address] [place], [address] Glucose [Mass/Vol] 169 mg/dL High 74-106 [facility] Comment on above: Order Comment: 1 Result Comment: Fast ing Glucose result greater than or equal to 126 mg/dL suggests DIABETES MELLITUS per A.D.A. criteria. Performed By: #### L 300.8000, L504.2610, L100.0100, L500.4050 ####[facility] [address] [place], [address] Potassium [Moles/Vol] 3.9 mmol/L Normal 3.5-5.1 [facility] Comment on above: Order Comment: 1 Performed By: #### L 300.8000, L504.2610, L100.0100, L500.4050 ####[facility] [address] [place], [address] Sodium [Moles/Vol] 140 mmol/L Normal 136-145 [facility] Comment on above: Order Comment: 1 Performed By: #### L 300.8000, L504.2610, L100.0100, L500.4050 ####[facility] [address] [place], [address] T PROT 7.1 g/dL Normal 6.4-8.2 [facility] Comment on above: Order Comment: 1 Performed By: #### L 300.8000, L504.2610, L100.0100, L500.4050 ####[facility] [address] [place], [address] Urea nitrogen [Mass/Vol] 15 mg/dL Normal 7-18 [facility] Comment on above: Order Comment: 1 Performed By: #### L 300.8000, L504.2610, L100.0100, L500.4050 ####[facility] [address] [place], [address] D-Dimer Quantitative (DVT/PE )on 05-05-2024 D-DIMER QUANT 0.72 FEU/ug/m Invalid Interpretation Code 0.27-0.49 [facility] Comment on above: Result Comment: D-Di suad ELEVATED (>0.49): Additional studies and clinical assessments are indicated to conclude diagnosis of: Deep Vein Thrombosis (DVT) or Pulmonary Embolism (PE) CRITICAL VALUE CALLED TO AMPARO DINERO (ONC) 05/05/24 1230 Mic Navarrete RESULTS READ BACK BY SAME. Performed By: #### L 300.8000, L504.2610, L100.0100, L500.4050 ####[facility] [address] [place], [address] LDHon 05-05-2024 LDH 150 U/L Normal 84-246 [facility] Comment on above: Order Comment: 1 Performed By: #### L 300.8000, L504.2610, L100.0100, L500.4050 ####[facility] [address] [place], [address] Oncology Visit Reporton 04-11 Oncology Visit Report [facility] [address] [place] [address] OFFICE VISIT Date of Service: 05/05/24 1107 MR#: [id number] Acct: [id number] Name: CHAPARRITA BARAJAS Olivia Rep #: [id number] : 1955 From: Abhi Ellison MD Age/Sex: 69/F Location: [facility] Status: Signed HPI Subjective Date of Service 05/05/24 Chief Complaint F/u for DVT management. History of Present Illness 69-year-old woman developed left leg swelling, was seen in the [facility] ER. She had Doppler on 02/14/2024 which showed left femoral vein acute DVT. She was then started on Eliquis. She went back to the ER with hematuria on 02/23/2024, she was admitted to the hospital, Eliquis was discontinued and she had Alisha filter placed. She was referred to discuss further management of her clots. She has had previous episodes of clotting which were related to surgery. She still had swelling of the Left leg. Was seen by Urology and cystoscopy was reportedly normal. She comes for follow up to discuss further management. Feels well. [facility] Medical History DVT (deep venous thrombosis) Hematuria Trigger finger of both hands Bilateral carpal tunnel syndrome Diabetes type 2, controlled Arthritis Hypertension Surgical History S/P IVC filter History of arthroplasty of finger of left hand History of knee replacement History of back surgery H/O: hysterectomy History of hip replacement H/O shoulder replacement Family History Grandmother Myocardial infarction Grandfather Aneurysm Mother Kidney failure Uncle Myocardial infarction Social History household members: spouse Smoking Status: Former smoker Tobacco: How many years used: 30 alcohol intake: current alcohol intake frequency: holidays/special occasions only substance use type: does not use Intake Vital Signs 03/22/24 15:56 05/05/24 11:07 Height 5 ft 2 in 5 ft 2 in Weight: 86.183 kg BMI 34.7 BP 132/72 H Blood Pressure Location Lt brachial Position Sitting Respiration 16 Pulse 65 Pulse Source Monitor Temp 98.2 F Temperature Source Temporal Artery Pulse Oximetry (%) 96 Oxygen Delivery Method room air Intake Accompanied by: Self Is patient in pain?: Yes (BLE) Pain scale (1-10): 3 Allergies codeine Allergy (Verified 05/05/24 11:11) Other topiramate (From Topamax) Allergy (Verified 05/05/24 11:11) Nausea amoxicillin (Amoxicillin) Adverse Reaction (Verified 05/05/24 11:11) Nausea etodolac (From Lodine) Adverse Reaction (Verified 05/05/24 11:11) Diarrhea fluticasone propionate (From Flovent Diskus) Adverse Reaction (Verified 05/05/24 11:11) headache lansoprazole (From Prevacid) Adverse Reaction (Verified 05/05/24 11:11) Unknown lorazepam (From Ativan) Adverse Reaction (Verified 05/05/24 11:11) Unknown lubiprostone Adverse Reaction (Verified 05/05/24 11:11) Nausea misoprostol (From Cytotec) Adverse Reaction (Verified 05/05/24 11:11) Diarrhea nitrofurantoin (From Macrobid) Adverse Reaction (Verified 05/05/24 11:11) Nausea nitrofurantoin macrocrystalline (From Macrobid) Adverse Reaction (Verified 05/05/24 11:11) Nausea Medications ???Medication ???Instructions ???Recorded ???Confirmed ???Type atenolol 50 mg tablet 50 mg PO DAILY 04/18/14 05/05/24 History calcium 600 mg-D3 800 unit-mag 40 1 ea PO DAILY 04/18/14 05/05/24 History tz-eaku-blhy-zuly-belle martin chew tablet (Caltrate 600-D Plus Minerals) lisinopril 5 mg tablet 20 mg PO DAILY 04/18/14 05/05/24 History cephalexin 250 mg capsule (Keflex) 250 mg PO DAILY 12/17/15 05/05/24 History cranberry extract 200 mg capsule 150 mg PO DAILY 12/17/15 05/05/24 History multivitamin with folic acid 400 1 tab PO DAILY 12/17/15 05/05/24 History mcg tablet (Thera) pantoprazole 40 mg tablet,delayed 40 mg PO DAILY 12/17/15 05/05/24 History release carvedilol 12.5 mg tablet 12.5 mg PO BID 02/23/24 05/05/24 History metformin 500 mg tablet,extended 500 mg PO BID 02/23/24 05/05/24 History release 24 hr morphine 15 mg tablet,extended 15 mg PO Q12.TCU 02/23/24 05/05/24 History release oxycodone 10 mg tablet 10 mg PO BID PRN PRN pain 02/23/24 05/05/24 History rosuvastatin 5 mg tablet (Crestor) 5 mg PO QHS cholestrol 02/23/24 05/05/24 History venlafaxine 75 mg capsule,extended 75 mg PO BID 02/23/24 05/05/24 History release 24 hr (Effexor XR) aspirin 81 mg chewable tablet 162 mg PO QDAY 03/15/24 05/05/24 History liver supplement 1 cap PO DAILY 03/15/24 05/05/24 History Have you fallen in the past year?: No Central Venous Access Central Venous Access: No Exam Physical Exam Const a (more content not included)... [facility] ([facility] CHAPARRITA BARAJAS ([id number]) 1955 F Date Time Provider Department 04/25/24 2:40 PM SHERI HUTCHINS INTMWS During your visit today, we recorded the following information about you: Temperature Pulse Respiration Blood pressure 99.2 degrees 77/minute 14/minute 132/88 Weight 85.3 kg Sheri Hutchins MD 04/25/2024 3:25 PM Signed This note was created using Keyprriter. Subjective Chaparrita Barajas is a 69 year old female. Patient presents with: Established Patient: Frequent falls SUBJECTIVE: Chaparrita Barajas is a 69 year old year old lady here today for follow up appointment for review of medical conditions: falls. Chaparrita Barajas is a 69-year-old female with a history of multiple falls, DVT, and left TKA, presenting for evaluation of recent falls and associated pain. Chaparrita reports experiencing 8 falls since May 11 of this year, with the most recent fall resulting in facial trauma. She attributes the falls to her toe getting caught on steps, leading to loss of balance. The most recent fall caused significant bruising on her cheek, which is now resolving. During the last fall, she landed on her left knee, which has a history of TKA. She reports that her knee is currently stable but painful. Additionally, she experiences left ankle pain, which predates the falls. Chaparrita has a history of DVT and is currently managed with an IVC filter due to previous episodes of hematuria, which were attributed to a UTI. She is under the care of a certified ophthalmic technologist and a urologist to determine the appropriate anticoagulation therapy. Recent ultrasound imaging shows resolving DVT, but she continues to experience left leg swelling. Recent lab results show normal antithrombin activity, protein C function, and protein S levels, with a negative Factor V Leiden test. PAST MEDICAL HISTORY Diagnosis Date Acute gastritis without mention of hemorrhage Chronic airway obstruction, not elsewhere classified 08/29/2014 Depressive disorder, not elsewhere classified Dysmetabolic syndrome X 01/08/2005 Glucose intolerance low HDL Elevated LDL Obesity Esophageal reflux Esophageal reflux Generalized osteoarthrosis, unspecified site Gout Migraine without aura Mixed hyperlipidemia Myalgia and myositis, unspecified Nausea Obesity, unspecified Partially edentulous maxilla has upper denture Phlebitis and thrombophlebitis of unspecified site 01/08/2005 Hx of DVT associated w/ OCP 10/1994, rt leg fracture 1976 Takotsubo cardiomyopathy Thoracic or lumbosacral neuritis or radiculitis, unspecified Unspecified disorder of kidney and ureter Unspecified essential hypertension 01/08/2005 VT (ventricular tachycardia) ([facility]) 01/09/2016 Current Outpatient Medications Medication Sig ondansetron (ZOFRAN) 8 mg tablet Take 1 tablet by mouth every 8 hours as needed for nausea/vomiting. venlafaxine ER (EFFEXOR XR) 75 mg 24 hr capsule Take 1 capsule by mouth two times a day. lisinopril (ZESTRIL) 20 mg tablet Take 1 tablet by mouth once daily. carvedilol (COREG) 12.5 mg tablet Take 1 tablet by mouth two times a day. metFORMIN ER (GLUCOPHAGE XR) 500 mg 24 hr tablet Take 2 tablets by mouth daily with breakfast. (Patient taking differently: Take 500 mg by mouth daily with breakfast.) rosuvastatin (CRESTOR) 5 mg tablet Take 1 tablet by mouth once daily. pantoprazole DR (PROTONIX) 40 mg tablet Take 1 tablet by mouth once daily. blood sugar diagnostic (BLOOD GLUCOSE TEST) test strip Test blood sugar(s) one time daily. Dx: Type 2 DM - Controlled E11.9 Insulin: No Cranberry 500 mg cap Take 1 capsule by mouth twice daily. oxyCODONE ER (OXYCONTIN) 10 mg 12 hr tablet Take 10 mg by mouth every 12 hours. morphine IR 15 mg tablet Take 15 mg by mouth twice daily. L. acidophilus-L. rhamnosus (PROBIOTIC) 15 billion cell cap Take 1 scoop by mouth once daily. therapeutic multivitamin (THERA VITAMIN) tablet Take 1 tablet by mouth once daily. Vit L-Ktitfs-Mgrfpg-Grap e 23-926-52-75-20 mg cap Take by mouth. CALCIUM CARBONATE/VITAMIN D2 (CALCIUM + VITAMIN D ORAL) Take by mouth once daily. Gummies, calcium 1000 mg and vit d 1600 IU aspirin(ADULT ASPIRIN EC LOW STRENGTH 81 MG TAB, DELAYED RELEASE) Take by mouth twice daily. ELIQUIS DVT-PE TREAT 30D START 5 mg (74 tabs) Take 2 tablets by mouth two times a day. (Patient not taking: Reported on 03/11/2024) apixaban (ELIQUIS) 5 mg tab(s) Take 1 tablet by mouth two times a day. To start after the starter pack (Patient not taking: Reported on 03/11/2024) albuterol HFA (PROAIR HFA) 90 mcg/actuation inhaler Inhale 2 Puffs as instructed every 6 hours as needed. (Patient not taking: Reported on 02/17/2024) benzonatate (TESSALON PERLES) 100 mg capsule Take 2 capsules by mouth three times a day as needed. (Patient not taking: Reported on 02/17/2024) No current facility-administe (more content not included)... Normal [facility] MR/BMSOctaviano 03-25-2024 MR/BMS.MINDY [facility] [address] [place] [address] OFFICE VISIT Date of Service: 03/25/24 MR#: [id number] Acct: [id number] Name: CHAPARRITA BARAJAS Olivia Rep #: [id number] : 1955 Provider: MILA Adams Age/Sex: 68/F Location: [facility] Status: Signed Intake Vital Signs 02/23/24 20:41 03/22/24 15:56 03/25/24 14:23 Height 5 ft 2 in 5 ft 2 in Weight: 189 lb BP 145/85 H Blood Pressure Location Lt brachial Position Sitting Respiration 16 Pulse 78 Pulse Source Monitor Temp 97.8 F Temp Source Temporal Pulse Oximetry (%) 94 Oxygen Delivery Method room air Intake Visit Reasons: POST IVC FILTER PLACEMENT/HOSPITAL F/U Is patient in pain?: No Allergies codeine Allergy (Verified 03/25/24 14:26) Other topiramate (From Topamax) Allergy (Verified 03/25/24 14:26) Nausea amoxicillin (Amoxicillin) Adverse Reaction (Verified 03/25/24 14:26) Nausea etodolac (From Lodine) Adverse Reaction (Verified 03/25/24 14:26) Diarrhea fluticasone propionate (From Flovent Diskus) Adverse Reaction (Verified 03/25/24 14:26) headache lansoprazole (From Prevacid) Adverse Reaction (Verified 03/25/24 14:26) Unknown lorazepam (From Ativan) Adverse Reaction (Verified 03/25/24 14:26) Unknown lubiprostone Adverse Reaction (Verified 03/25/24 14:26) Nausea misoprostol (From Cytotec) Adverse Reaction (Verified 03/25/24 14:26) Diarrhea nitrofurantoin (From Macrobid) Adverse Reaction (Verified 03/25/24 14:26) Nausea nitrofurantoin macrocrystalline (From Macrobid) Adverse Reaction (Verified 03/25/24 14:26) Nausea Medications ???Medication ???Instructions ???Recorded ???Confirmed ???Type atenolol 50 mg tablet 50 mg PO DAILY 04/18/14 03/25/24 History calcium 600 mg-D3 800 unit-mag 40 1 ea PO DAILY 04/18/14 03/25/24 History hu-pomw-xmqw-zuly-belle martin chew tablet (Caltrate 600-D Plus Minerals) lisinopril 5 mg tablet 20 mg PO DAILY 04/18/14 03/25/24 History cephalexin 250 mg capsule (Keflex) 250 mg PO DAILY 12/17/15 03/25/24 History cranberry extract 200 mg capsule 150 mg PO DAILY 12/17/15 03/25/24 History multivitamin with folic acid 400 1 tab PO DAILY 12/17/15 03/25/24 History mcg tablet (Thera) pantoprazole 40 mg tablet,delayed 40 mg PO DAILY 12/17/15 03/25/24 History release carvedilol 12.5 mg tablet 12.5 mg PO BID 02/23/24 03/25/24 History metformin 500 mg tablet,extended 500 mg PO BID 02/23/24 03/25/24 History release 24 hr morphine 15 mg tablet,extended 15 mg PO Q12.TCU 02/23/24 03/25/24 History release oxycodone 10 mg tablet 10 mg PO BID PRN PRN pain 02/23/24 03/25/24 History rosuvastatin 5 mg tablet (Crestor) 5 mg PO QHS cholestrol 02/23/24 03/25/24 History venlafaxine 75 mg capsule,extended 75 mg PO BID 02/23/24 03/25/24 History release 24 hr (Effexor XR) aspirin 81 mg chewable tablet 162 mg PO QDAY 03/15/24 03/25/24 History liver supplement 1 cap PO DAILY 03/15/24 03/25/24 History Is last menstrual period known: No Post menopausal: Yes Patient : No Have you fallen in the past year?: Yes PFSH Medical History DVT (deep venous thrombosis) Hematuria Trigger finger of both hands Bilateral carpal tunnel syndrome Diabetes type 2, controlled Arthritis Hypertension Surgical History (Updated 03/25/24 @ 15:12 by MILA Adams) S/P IVC filter History of arthroplasty of finger of left hand History of knee replacement History of back surgery H/O: hysterectomy History of hip replacement H/O shoulder replacement Family History Grandmother Myocardial infarction Grandfather Aneurysm Mother Kidney failure Uncle Myocardial infarction Social History household members: spouse Smoking Status: Former smoker Tobacco: How many years used: 30 alcohol intake: current alcohol intake frequency: holidays/special occasions only substance use type: does not use HPI HPI HPI: CHAPARRITA BARAJAS, is a 68 F who presents to the office today for follow-up status post IVC filter placement 02/23/2024. Recall that she had recent diagnosis of DVT 02/14/2024 but then developed significant hematuria with associated anemia necessitating anticoagulation hold and thus filter placement. Her hematuria has resolved but she does continue to be off of anticoagulation. She does follow-up with urology Dr. Hill on 03/28/2024 to evaluate potential source for hematuria. She is now also following with hematology for ongoing management of her DVTs and she reports the future plans to determine why she has had recurrent DVT. 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 The prior DVTs were mostly reasonab (more content not included)... Normal [facility] Cytology, Body Fluid / CSFon 03-22-2024 CYTOLOGY,BF/CSF SEE PATHOLOGY REPORT Normal [facility] Comment on above: Order Comment: COLOR OF URINE MAY AFFECT DIPSTICK RESULTS. HEALTHCARE INSURANCE SALES AGENT TO SPECIFY Result Comment: Spec imen submitted to Anatomical Pathology Department for testing. Performed By: #### L 400.0001 #### [facility] [address] [place], [address] Oncology Visit Reporton 03-11 Oncology Visit Report [facility] [address] [place] [address] OFFICE VISIT Date of Service: 03/22/24 1556 MR#: [id number] Acct: [id number] Name: CHAPARRITA BARAJAS Rep #: [id number] : 1955 From: Abhi Ellison MD Age/Sex: 68/F Location: [facility] Status: Signed HPI Subjective Date of Service 03/22/24 Chief Complaint F/u for DVT management. History of Present Illness 68-year-old woman developed left leg swelling, was seen in the [facility] ER. She had Doppler on 02/14/2024 which showed left femoral vein acute DVT. She was then started on Eliquis. She went back to the ER with hematuria on 02/23/2024, she was admitted to the hospital, Eliquis was discontinued and she had [place] filter placed. She was referred to discuss further management of her clots. She has had previous episodes of clotting which were related to surgery. She still had swelling of the Left leg. Had Doppler done and comes for follow up. [facility] Medical History DVT (deep venous thrombosis) Hematuria Trigger finger of both hands Bilateral carpal tunnel syndrome Diabetes type 2, controlled Arthritis Hypertension Surgical History History of arthroplasty of finger of left hand History of knee replacement History of back surgery H/O: hysterectomy History of hip replacement H/O shoulder replacement S/P IVC filter Family History Grandmother Myocardial infarction Grandfather Aneurysm Mother Kidney failure Uncle Myocardial infarction Social History household members: spouse Smoking Status: Former smoker Tobacco: How many years used: 30 alcohol intake: current alcohol intake frequency: holidays/special occasions only substance use type: does not use Intake Vital Signs 03/15/24 09:18 03/22/24 15:56 Height 5 ft 2 in 5 ft 2 in Weight: 86.409 kg BMI 34.8 BP 128/79 H Blood Pressure Location Lt brachial Position Sitting Respiration 18 Pulse 72 Pulse Source Monitor Temp 98.4 F Temperature Source Temporal Artery Pulse Oximetry (%) 96 Oxygen Delivery Method room air Intake Is patient in pain?: Yes (stomach) Pain scale (1-10): 4 Allergies codeine Allergy (Verified 03/22/24 16:06) Other topiramate (From Topamax) Allergy (Verified 03/22/24 16:06) Nausea amoxicillin (Amoxicillin) Adverse Reaction (Verified 03/22/24 16:06) Nausea etodolac (From Lodine) Adverse Reaction (Verified 03/22/24 16:06) Diarrhea fluticasone propionate (From Flovent Diskus) Adverse Reaction (Verified 03/22/24 16:06) headache lansoprazole (From Prevacid) Adverse Reaction (Verified 03/22/24 16:06) Unknown lorazepam (From Ativan) Adverse Reaction (Verified 03/22/24 16:06) Unknown lubiprostone Adverse Reaction (Verified 03/22/24 16:06) Nausea misoprostol (From Cytotec) Adverse Reaction (Verified 03/22/24 16:06) Diarrhea nitrofurantoin (From Macrobid) Adverse Reaction (Verified 03/22/24 16:06) Nausea nitrofurantoin macrocrystalline (From Macrobid) Adverse Reaction (Verified 03/22/24 16:06) Nausea Medications ???Medication ???Instructions ???Recorded ???Confirmed ???Type atenolol 50 mg tablet 50 mg PO DAILY 04/18/14 03/22/24 History calcium 600 mg-D3 800 unit-mag 40 1 ea PO DAILY 04/18/14 03/22/24 History dm-zwmq-nmmb-zuly-belle martin chew tablet (Caltrate 600-D Plus Minerals) lisinopril 5 mg tablet 20 mg PO DAILY 04/18/14 03/22/24 History oxycodone 15 mg tablet,crush 15 mg PO BID Pain 04/18/14 03/22/24 History resistant,extended release 12 hr (OxyContin) cephalexin 250 mg capsule (Keflex) 250 mg PO DAILY 12/17/15 03/22/24 History cranberry extract 200 mg capsule 150 mg PO DAILY 12/17/15 03/22/24 History multivitamin with folic acid 400 1 tab PO DAILY 12/17/15 03/22/24 History mcg tablet (Thera) pantoprazole 40 mg tablet,delayed 40 mg PO DAILY 12/17/15 03/22/24 History release benzonatate 100 mg capsule 200 mg PO TID PRN PRN cough 02/23/24 03/22/24 History carvedilol 12.5 mg tablet 12.5 mg PO BID 02/23/24 03/22/24 History metformin 500 mg tablet,extended 500 mg PO BID 02/23/24 03/22/24 History release 24 hr morphine 15 mg tablet,extended 15 mg PO Q12.TCU 02/23/24 03/22/24 History release oxycodone 10 mg tablet 10 mg PO BID PRN PRN pain 02/23/24 03/22/24 History rosuvastatin 5 mg tablet (Crestor) 5 mg PO QHS cholestrol 02/23/24 03/22/24 History venlafaxine 75 mg capsule,extended 75 mg PO BID 02/23/24 03/22/24 History release 24 hr (Effexor XR) aspirin 81 mg chewable tablet 162 mg PO QDAY 03/15/24 03/22/24 History liver supplement 1 cap PO DAILY 03/15/24 03/22/24 History Have yo (more content not included)... Normal [facility] Pap Stain (control)on 2023 Pap Stain (control) Patient Age/Sex Location Account Attending Physician CHAPARRITA BARAJAS Olivia 68/F [facility] [id number] Dr. Abhi Ellison MD Specimen: [id number] Received: 03/22/24 Status: LEISA Oneal Num: [id number] Spec Type: CYSPIN FL Subm Dr: Dr. Abhi Ellison MD HEADER OPERATION: Not noted PRE-OP DIAGNOSIS: Hematuria TISSUE SUBMITTED: Urine for cytology DIAGNOSIS CYTOLOGY Urine for cytology (cytospin): Negative for high grade urothelial carcinoma (Johnna System Category II). See comment. AM/ 03/23/2024 COMMENT The Johnna System for urine cytology diagnostic categorization was used in the evaluation of this case. The specimen primarily consists of benign squamous epithelial cells. Clinical correlation is suggested. CYTOLOGY STUDY Slides are reviewed. CYTOLOGY GROSS Received is 10.5 ml of dark yellow-cloudy fluid labeled with the patient's name and and designated per the requisition as urine. Submitted for cytology preparation. 03/23/2024 TC:5 CPT: 88112 Signed (signature on file) Dr. Kvng Olsen, DO 03/23/24 1204 Normal [facility] Comment on above: Performed By: #### P PAPS ####[facility] [address] [place], [address] Urinalysis, Completeon 03-22 BACTERIA 2+ /hpf Normal None Seen [facility] Comment on above: Order Comment: URINE HEALTHCARE INSURANCE SALES AGENT TO SPECIFY Performed By: #### L 100.0100, L500.4050 #### [facility] [address] [place], [address] Mucus Ql (Urine sed) RARE Normal [facility] Comment on above: Order Comment: URINE HEALTHCARE INSURANCE SALES AGENT TO SPECIFY Performed By: #### L 100.0100, L500.4050 #### [facility] [address] [place], [address] WBC 0-5 SEEN Normal 0-5 [facility] Comment on above: Order Comment: URINE HEALTHCARE INSURANCE SALES AGENT TO SPECIFY Performed By: #### L 100.0100, L500.4050 #### [facility] [address] [place], [address] YEAST 1+ /hpf Normal None Seen [facility] Comment on above: Order Comment: URINE HEALTHCARE INSURANCE SALES AGENT TO SPECIFY Performed By: #### L 100.0100, L500.4050 #### [facility] [address] [place], [address] EPI,SQUAMOUS 10-25 SEEN Normal 5-10 [facility] Comment on above: Order Comment: URINE HEALTHCARE INSURANCE SALES AGENT TO SPECIFY Performed By: #### L 100.0100, L500.4050 #### [facility] [address] [place], [address] RBC 0 SEEN Normal 0-5 [facility] Comment on above: Order Comment: URINE HEALTHCARE INSURANCE SALES AGENT TO SPECIFY Performed By: #### L 100.0100, L500.4050 #### [facility] [address] [place], [address] Venous Duplex US - Zach Extre mon 03-16-2024 Venous Duplex US - Zach Extrem [facility] [address] [place] [address] Venous Duplex US - Zach Extrem 03/16/24 1056 MR#: [id number] Acct: [id number] Name: CHAPARRITA BARAJAS Rep #: [id number] : 1955 68 From: Aaron Villalpando MD Attending Dr: Dr. Abhi Ellison MD Status: [facility] Ordering Dr: Abhi Ellison MD Date: 03/16/24 Location: CVS Sex: F C Admitted: Reason For Study: Elevated d-dimer RIGHT LEFT GSV is normal. GSV is normal. CFV is compressible, spontaneous, phasic, CFV is compressible, spontaneous, phasic, competent and demonstrates normal competent, and demonstrates normal augmentation. augmentation. FV is compressible, spontaneous, phasic, FV prox is partially compressible with competent and demonstrates normal minimal venous flow noted. augmentation. Acute deep vein thrombosis is noted in the POP V is compressible, spontaneous, phasic, remainder of the FV. It is NONCOMPRESSIBLE competent and demonstrates normal and dilated. augmentation. Acute deep veint thrombosis is noted in the T/P Trunk is compressible. PopV, T/P Trunk, and PTV. It is PTV is compressible. NONCOMPRESSIBLE. RT PerV is compressible. PeroV is now compressible. Procedure This is a venous duplex using B-mode, color flow and spectral Doppler. Exam performed in department. Compared to 02/14/2024. A preliminary report was called and/or faxed to Dr. Ellison. VL/Venous Duplex US - Zach Extrem Interpretation Summary Acute deep vein thrombosis is noted in the left femoral vein. Acute deep vein thrombosis is noted in the left popliteal vein. Acute deep vein thrombosis is noted in the left tibio-peroneal trunk. Acute deep vein thrombosis is noted in the left posterior tibial vein. The left common femoral vein and peroneal vein are patent and compressible. Deep veins of the right lower extremity are patent and compressible segmentally. There is no evidence of right lower extremity deep vein thrombosis. Valvular competence appears intact within the proximal deep venous system on the right . The great saphenous veins appear bilaterally patent and compressible segmentally. Ordering Physician: Abhi Ellison Referring Physician: Sheri Hutchins M.D. Performed By: Светлана Varner, T 03/16/24 2330 Date Aaron Villalpando MD CC: Dr. Abhi Ellison MD; Dr. Sheri Hutchins MD Date Dictated: 03/16/24 1056 Date Transcribed: 03/16/242329 Marine Operations Coordinator: Signed Normal [facility] CBC W/Diff, Automatedon Absolute Lymph 2.22 X10 3/uL Normal 0.83-4.51 [facility] Comment on above: Performed By: #### L 504.2610, L500.4050, L100.0100, L300.8000 #### [facility] [address] [place], [place], [address] Absolute Neut 4.5 X10 3/uL Normal 2.0-7.7 [facility] Comment on above: Performed By: #### L 504.2610, L500.4050, L100.0100, L300.8000 #### [facility] [address] [place], [address] Basophils/100 WBC (Bld) 0.8 % Normal 0-1 [facility] Comment on above: Performed By: #### L 504.2610, L500.4050, L100.0100, L300.8000 #### [facility] [address] [place], [address] Eosinophils/100 WBC (Bld) 4.3 % Normal 0-5 [facility] Comment on above: Performed By: #### L 504.2610, L500.4050, L100.0100, L300.8000 #### [facility] [address] [place], [address] Erythrocyte distribution width (RBC) [Ratio] 12.4 % Normal 11.6-14.6 [facility] Comment on above: Performed By: #### L 504.2610, L500.4050, L100.0100, L300.8000 #### [facility] [address] [place], [address] Hematocrit (Bld) [Volume fraction] 37.0 % Normal 37-47 [facility] Comment on above: Performed By: #### L 504.2610, L500.4050, L100.0100, L300.8000 #### [facility] [address] [place], [address] Hemoglobin (Bld) [Mass/Vol] 11.7 g/dL Low 12.0-15.0 [facility] Comment on above: Performed By: #### L 504.2610, L500.4050, L100.0100, L300.8000 #### [facility] [address] [place], [address] IG% 0.400 Normal 0.0-0.9 [facility] Comment on above: Result Comment: IG% - Immature Granulocytes (promyelocytes, myelocytes and metamyelocytes) > 1% indicates that a LEFT SHIFT is Present. Performed By: #### L 504.2610, L500.4050, L100.0100, L300.8000 #### [facility] [address] [place], [address] Lymphocytes/100 WBC (Bld) 29.1 % Normal 19-41 [facility] Comment on above: Performed By: #### L 504.2610, L500.4050, L100.0100, L300.8000 #### [facility] [address] [place], [address] MCH (RBC) [Entitic mass] 29.5 pg Normal 27.0-32.0 [facility] Comment on above: Performed By: #### L 504.2610, L500.4050, L100.0100, L300.8000 #### [facility] [address] [place], [address] MCHC (RBC) [Mass/Vol] 31.6 g/dL Low 32-36 [facility] Comment on above: Performed By: #### L 504.2610, L500.4050, L100.0100, L300.8000 #### [facility] [address] [place], [address] MCV (RBC) [Entitic vol] 93.4 fL Normal 81-99 [facility] Comment on above: Performed By: #### L 504.2610, L500.4050, L100.0100, L300.8000 #### [facility] [address] [place], [address] Monocytes/100 WBC (Bld) 6.7 % Normal 0-10 [facility] Comment on above: Performed By: #### L 504.2610, L500.4050, L100.0100, L300.8000 #### [facility] [address] [place], [address] Neutrophils/100 WBC (Bld) 58.7 % Normal 47-70 [facility] Comment on above: Performed By: #### L 504.2610, L500.4050, L100.0100, L300.8000 #### [facility] [address] [place], [address] Nucleated RBC (Bld) [#/Vol] 0 10*3/uL Normal 0-5 [facility] Comment on above: Performed By: #### L 504.2610, L500.4050, L100.0100, L300.8000 #### [facility] [address] [place], [address] Platelet mean volume (Bld) [Entitic vol] 9.6 fL Normal 6.2-12.0 [facility] Comment on above: Performed By: #### L 504.2610, L500.4050, L100.0100, L300.8000 #### [facility] [address] [place], [address] Platelets (Bld) [#/Vol] 320 10*3/uL Normal 150-450 [facility] Comment on above: Performed By: #### L 504.2610, L500.4050, L100.0100, L300.8000 #### [facility] [address] [place], [address] RBC (Bld) [#/Vol] 3.96 10*6/uL Low 4.2-5.4 [facility] Comment on above: Performed By: #### L 504.2610, L500.4050, L100.0100, L300.8000 #### [facility] [address] [place], [address] RDW SD 42.7 fl Normal 35.1-43.9 [facility] Comment on above: Performed By: #### L 504.2610, L500.4050, L100.0100, L300.8000 #### [facility] [address] [place], [address] WBC (Bld) [#/Vol] 7.6 10*3/uL Normal 4.4-11.0 [facility] Comment on above: Performed By: #### L 504.2610, L500.4050, L100.0100, L300.8000 #### [facility] [address] [place], [address] Comprehensive Metabolic Prof ilon 03-15-2024 Albumin [Mass/Vol] 3.2 g/dL Normal 3.2-5.0 [facility] Comment on above: Order Comment: 1 Performed By: #### L 504.2610, L500.4050, L100.0100, L300.8000 #### [facility] [address] [place], [address] Albumin/Globulin [Mass ratio] 0.8 {ratio} Low 0.9-2.4 [facility] Comment on above: Order Comment: 1 Performed By: #### L 504.2610, L500.4050, L100.0100, L300.8000 #### [facility] [address] [place], [address] ALK P 86 U/L Normal 45-117 [facility] Comment on above: Order Comment: 1 Performed By: #### L 504.2610, L500.4050, L100.0100, L300.8000 #### [facility] [address] [place], [address] ALT [Catalytic activity/Vol] 17 U/L Normal 13-56 [facility] Comment on above: Order Comment: 1 Performed By: #### L 504.2610, L500.4050, L100.0100, L300.8000 #### [facility] [address] [place], [address] AST [Catalytic activity/Vol] 14 U/L Low 15-37 [facility] Comment on above: Order Comment: 1 Performed By: #### L 504.2610, L500.4050, L100.0100, L300.8000 #### [facility] [address] [place], [address] Bilirubin [Mass/Vol] 0.50 mg/dL Normal 0.20-1.00 [facility] Comment on above: Order Comment: 1 Result Comment: For patients on eltrombopag therapy, use of Dimension [place] TBIL is not recommended. Performed By: #### L 504.2610, L500.4050, L100.0100, L300.8000 #### [facility] [address] [place], [address] BUN/CRE 9.5 RATIO Low 10-20 [facility] Comment on above: Order Comment: 1 Performed By: #### L 504.2610, L500.4050, L100.0100, L300.8000 #### [facility] [address] [place], [address] CA,Total 9.0 mg/dL Normal 8.5-10.1 [facility] Comment on above: Order Comment: 1 Performed By: #### L 504.2610, L500.4050, L100.0100, L300.8000 #### [facility] [address] [place], [address] Chloride [Moles/Vol] 105 mmol/L Normal 98-107 [facility] Comment on above: Order Comment: 1 Performed By: #### L 504.2610, L500.4050, L100.0100, L300.8000 #### [facility] [address] [place], [address] CO2 [Moles/Vol] 31.0 mmol/L Normal 21.0-32.0 [facility] Comment on above: Order Comment: 1 Performed By: #### L 504.2610, L500.4050, L100.0100, L300.8000 #### [facility] [address] [place], [address] Creatinine [Mass/Vol] 1.05 mg/dL High 0.55-1.02 [facility] Comment on above: Order Comment: 1 Result Comment: The validity of the calculated GFR GFRAA in patients over 70 years has not been determined. Clinical correlation is essential. Performed By: #### L 504.2610, L500.4050, L100.0100, L300.8000 #### [facility] [address] [place], [address] EST GFR - AA 67 mL/min Normal >60 [facility] Comment on above: Order Comment: 1 Result Comment: Afri can [place] GFR Calc Performed By: #### L 504.2610, L500.4050, L100.0100, L300.8000 #### [facility] [address] [place], [address] GAP 5 Normal 5-15 [facility] Comment on above: Order Comment: 1 Performed By: #### L 504.2610, L500.4050, L100.0100, L300.8000 #### [facility] [address] [place], [address] GFR/1.73 sq M.predicted among non-blacks MDRD (S/P/Bld) [Vol rate/Area] 55 mL/min/{1.73_m2} Low >60 [facility] Comment on above: Order Comment: 1 Result Comment: Non- GFR Calc Performed By: #### L 504.2610, L500.4050, L100.0100, L300.8000 #### [facility] [address] [place], [address] Globulin (S) [Mass/Vol] 4.0 g/dL Normal 2.2-4.2 [facility] Comment on above: Order Comment: 1 Performed By: #### L 504.2610, L500.4050, L100.0100, L300.8000 #### [facility] [address] [place], [address] Glucose [Mass/Vol] 153 mg/dL High 74-106 [facility] Comment on above: Order Comment: 1 Result Comment: Fast ing Glucose result greater than or equal to 126 mg/dL suggests DIABETES MELLITUS per A.D.A. criteria. Performed By: #### L 504.2610, L500.4050, L100.0100, L300.8000 #### [facility] [address] [place], [address] Potassium [Moles/Vol] 3.8 mmol/L Normal 3.5-5.1 [facility] Comment on above: Order Comment: 1 Performed By: #### L 504.2610, L500.4050, L100.0100, L300.8000 #### [facility] [address] [place], [address] Sodium [Moles/Vol] 140 mmol/L Normal 136-145 [facility] Comment on above: Order Comment: 1 Performed By: #### L 504.2610, L500.4050, L100.0100, L300.8000 #### [facility] [address] [place], [address] T PROT 7.2 g/dL Normal 6.4-8.2 [facility] Comment on above: Order Comment: 1 Performed By: #### L 504.2610, L500.4050, L100.0100, L300.8000 #### [facility] [address] [place], [address] Urea nitrogen [Mass/Vol] 10 mg/dL Normal 7-18 [facility] Comment on above: Order Comment: 1 Performed By: #### L 504.2610, L500.4050, L100.0100, L300.8000 #### [facility] [address] [place], [address] D-Dimer Quantitative (DVT/PE )on 03-15-2024 D-DIMER QUANT 2.80 FEU/ug/m Invalid Interpretation Code 0.27-0.49 [facility] Comment on above: Result Comment: D-Di saud ELEVATED (>0.49): Additional studies and clinical assessments are indicated to conclude diagnosis of: Deep Vein Thrombosis (DVT) or Pulmonary Embolism (PE) CRITICAL VALUE CALLED TO [facility] 03/15/24 1106 Alla Schulz. RESULTS READ BACK BY SAME. Performed By: #### L 504.2610, L500.4050, L100.0100, L300.8000 #### [facility] [address] [place], [address] LDHon 03-15-2024 LDH 192 U/L Normal 84-246 [facility] Comment on above: Order Comment: 1 Performed By: #### L 501.080 #### [facility] [address] [place], [address] Oncology Visit Reporton Oncology Visit Report [facility] [address] [place] [address] OFFICE VISIT Date of Service: 03/15/24 0903 MR#: [id number] Acct: [id number] Name: SERGEALEK WhiteHeron Baker Rep #: [id number] : 1955 From: Abhi Ellison MD Age/Sex: 68/F Location: [facility] Status: Signed HPI Subjective Date of Service 03/15/24 Chief Complaint Referred for DVT management. History of Present Illness 68-year-old woman Developed left leg swelling, was seen in the [facility] ER. She had Doppler on 02/14/2024 which showed left femoral vein acute DVT. She was then started on Eliquis. She went back to the ER with hematuria on 02/23/2024, she was admitted to the hospital, Eliquis was discontinued and she had Alisha filter placed. She is now referred to discuss further management of her clots. She has had previous episodes of clotting which were related to surgery. She has slight swelling of the Left leg. [facility] Medical History (Updated 03/15/24 @ 10:[address] Abhi Ellison MD) DVT (deep venous thrombosis) Hematuria Trigger finger of both hands Bilateral carpal tunnel syndrome Diabetes type 2, controlled Arthritis Hypertension Surgical History History of arthroplasty of finger of left hand History of knee replacement History of back surgery H/O: hysterectomy History of hip replacement H/O shoulder replacement S/P IVC filter Family History Grandmother Myocardial infarction Grandfather Aneurysm Mother Kidney failure Uncle Myocardial infarction Social History household members: spouse Smoking Status: Former smoker Tobacco: How many years used: 30 alcohol intake: current alcohol intake frequency: holidays/special occasions only substance use type: does not use ROS Constitutional Constitutional: Reports systems reviewed and no addt'l complaints, except as documented Eyes Eyes: Reports systems reviewed and no addt'l complaints, except as documented ENT HEENT: Reports systems reviewed and no addt'l complaints, except as documented Cardiovascular Cardiovascular: Reports systems reviewed and no addt'l complaints, except as documented Respiratory/Chest Respiratory/Chest: Reports systems reviewed and no addt'l complaints, except as documented Gastrointestinal Gastrointestinal: Reports systems reviewed and no addt'l complaints, except as documented Genitourinary Genitourinary: Reports systems reviewed and no addt'l complaints, except as documented Musculoskeletal Musculoskeletal: Reports systems reviewed and no addt'l complaints, except as documented Integumentary Integumentary: Reports systems reviewed and no addt'l complaints, except as documented Neurologic Neurologic: Reports systems reviewed and no addt'l complaints, except as documented Psychiatric Psychiatric: Reports systems reviewed and no addt'l complaints, except as documented Endocrine Endocrinology: Reports systems reviewed and no addt'l complaints, except as documented Hematologic/Lymphati c Hematologic/Lymphati c: Reports systems reviewed and no addt'l complaints, except as documented Allergic/Immunologic Allergic/Immunologic : Reports systems reviewed and no addt'l complaints, except as documented Intake Vital Signs 02/23/24 20:41 03/15/24 09:15 03/15/24 09:17 03/15/24 09:18 Height 5 ft 2 in 5 ft 2 in 5 ft 2 in 5 ft 2 in Weight: 86.268 kg 86.268 kg BMI 34.7 34.7 BP 132/79 H Blood Pressure Location Lt brachial Position Sitting Respiration 18 Pulse 74 Pulse Source Monitor Temp 97.7 F L Temperature Source Temporal Artery Pulse Oximetry (%) 92 Oxygen Delivery Method room air Intake Is patient in pain?: Yes (stomach ) Pain scale (1-10): 2 Allergies codeine Allergy (Verified 03/15/24 09:06) Other topiramate (From Topamax) Allergy (Verified 03/15/24 09:06) Nausea amoxicillin (Amoxicillin) Adverse Reaction (Verified 03/15/24 09:06) Nausea etodolac (From Lodine) Adverse Reaction (Verified 03/15/24 09:06) Diarrhea fluticasone propionate (From Flovent Diskus) Adverse Reaction (Verified 03/15/24 09:06) headache lansoprazole (From Prevacid) Adverse Reaction (Verified 03/15/24 09:06) Unknown lorazepam (From Ativan) Adverse Reaction (Verified 03/15/24 09:06) Unknown lubiprostone Adverse Reaction (Verified 03/15/24 09:06) Nausea misoprostol (From Cytotec) Adverse Reaction (Verified 03/15/24 09:06) Diarrhea nitrofurantoin (From Macrobid) Adverse Reaction (Verified 03/15/24 09:06) Nausea nitrofurantoin macrocrystalline (From Macrobid) Adverse Reaction (Verified 03/15/24 09:06) Nausea Medications ???Medication ???Instructions ???Recorded ???Confirmed ???Type atenolol 50 mg tablet (more content not included)... [facility] 03-11-2024 OV Office Visit (INT[facility]) CHAPARRITA BARAJAS ([id number]) 1955 F Date Time Provider Department 03/11/24 4:00 PM SHERI HUTCHINS IN[facility] During your visit today, we recorded the following information about you: Temperature Pulse Respiration Blood pressure 98.3 degrees 81/minute 16/minute 128/78 Weight 84.7 kg Sheri Hutchins MD 03/21/2024 11:09 PM Signed This note was created using [employer]. Subjective Chaparrita Barajas is a 68 year old female. Patient presents with: Hospital F/U: [facility] hospital follow up SUBJECTIVE: Chaparrita Barajas is a 68 year old year old lady here today for hospital follow up appointment for review of medical conditions. Chaparrita Barajas is a 68-year-old female with a history of multiple DVTs, presenting for follow-up after a recent hospitalization for an extensive DVT and hematuria. Chaparrita was recently hospitalized after experiencing severe dehydration secondary to a flu-like illness with emesis and diarrhea. She noted progressively decreasing blood pressure readings at home, prompting a call to the nurse continuous loft operator, who advised her to go to the emergency room. Initial blood tests revealed low hematocrit, leading to a CT scan that identified an extensive DVT extending from her ankle to her groin. She was taken to surgery the same day for placement of an IVC filter due to concurrent hematuria, which precluded anticoagulation therapy. She reports that the hematuria resolved before discharge. Two days after her initial discharge, she noticed significant swelling in her left leg, prompting a return to the emergency room. A Doppler ultrasound confirmed the presence of a DVT extending from her ankle to the back of her knee. A subsequent CT scan revealed that the clot extended further, leading to the decision to place the IVC filter. 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 She has also experienced DVTs in both legs and her left arm, the latter occurring after a shoulder replacement. She has been on various anticoagulants, including Eliquis, which she associates with the onset of hematuria. She expresses reluctance to resume Eliquis and has a history of being on Coumadin, which she also prefers to avoid. She reports ongoing swelling in her left leg and mild anemia, with a recent hemoglobin level of 11.9 g/dL. She has a follow-up appointment with hematology on the and plans to schedule an appointment with urology. She is currently on a low-dose antibiotic for recurrent UTIs, which she believes were exacerbated by her recent illness. She denies current hematuria and is able to ambulate, reporting that she is up and down approximately 25 times a day. PAST MEDICAL HISTORY Diagnosis Date Acute gastritis without mention of hemorrhage Chronic airway obstruction, not elsewhere classified 08/29/2014 Depressive disorder, not elsewhere classified Dysmetabolic syndrome X 01/08/2005 Glucose intolerance low HDL Elevated LDL Obesity Esophageal reflux Esophageal reflux Generalized osteoarthrosis, unspecified site Gout Migraine without aura Mixed hyperlipidemia Myalgia and myositis, unspecified Nausea Obesity, unspecified Partially edentulous maxilla has upper denture Phlebitis and thrombophlebitis of unspecified site 01/08/2005 Hx of DVT associated w/ OCP 10/1994, rt leg fracture 1976 Takotsubo cardiomyopathy Thoracic or lumbosacral neuritis or radiculitis, unspecified Unspecified disorder of kidney and ureter Unspecified essential hypertension 01/08/2005 VT (ventricular tachycardia) ([facility]) 01/09/2016 Current Outpatient Medications Medication Sig ondansetron (ZOFRAN) 8 mg tablet Take 1 tablet by mouth every 8 hours as needed for nausea/vomiting. venlafaxine ER (EFFEXOR XR) 75 mg 24 hr capsule Take 1 capsule by mouth two times a day. lisinopril (ZESTRIL) 20 mg tablet Take 1 tablet by mouth once daily. carvedilol (COREG) 12.5 mg tablet Take 1 tablet by mouth two times a day. metFORMIN ER (GLUCOPHAGE XR) 500 mg 24 hr tablet Take 2 tablets by mouth daily with breakfast. (Patient taking differently: Take 500 mg by mouth daily with breakfast.) rosuvastatin (CRESTOR) 5 mg tablet Take 1 tablet by mouth once daily. pantoprazole DR (PROTONIX) 40 mg tablet Take 1 tablet by mouth once daily. blood sugar diagnostic (BLOOD GLUCOSE TEST) test strip Test blood sugar(s) one time daily. Dx: Type 2 DM - Controlled E11.9 Insulin: No Cranberry 500 mg cap Take 1 capsule by mouth twice daily. oxyCODONE ER (OXYCONTIN) 10 mg 12 hr tablet Take 10 mg by mouth every 12 hours. morphine IR 15 mg tablet Take 15 mg by mouth twice daily. L. acidophilus-L. rhamnosus (PROBIOTIC) 15 billion cell cap Take 1 scoop by mouth once daily. therapeutic multivitamin (THERA VITAMIN) table (more content not included)... Normal [facility] 02-25-2024 [facility] Telephone (INTMWS) CHAPARRITA BARAJAS ([id number]) 1955 F Date Time Provider Department 02/25/24 SHERI HUTCHINS INTMWS During your visit today, we recorded the following information about you: Silvia Powell LPN 02/25/2024 9:50 AM Signed Fax rec'd from [facility]. They are asking for complete medical records(last 5 years) to be faxed to [facility]. This was faxed to [facility] medical records release. Allergies As of Date: 02/25/2024 Noted Allergy Reaction ADHESIVE 12/17/2012 2 - Rash Comments: Bandaids- swelling, rash AMOXICILLIN 03/05/2005 8 - GI Upset ATIVAN (LORAZEPAM) 01/08/2005 5 - Intolerance CODEINE 03/05/2005 CYTOTEC (MISOPROSTOL) 03/26/2005 6 - Diarrhea FLOVENT (FLUTICASONE PROPIONATE) 07/24/2008 Comments: Severe headaches. LODINE (ETODOLAC) 03/26/2005 5 - Intolerance LUBIPROSTONE 11/06/2011 8 - GI Upset MACROBID (NITROFURANTOIN MONOHYD/*05/30/2005 Comments: nausea. ok with plain Macrodantin PREVACID (LANSOPRAZOLE) 03/05/2005 TOPAMAX (TOPIRAMATE) 07/25/2009 8 - GI Upset Comments: Eyes blurry, could not eat for 2 weeks ,gi symptoms Date Reviewed: 02/17/2024 Reviewed by: Mckenzie Zabala MD - Fully Assessed Reason for Visit: Release Of Medical Records [2017] Prescriptions as of 02/25/2024 - ELIQUIS DVT-PE TREAT 30D START 5 mg (74 tabs) Take 2 tablets by mouth two times a day. - apixaban (ELIQUIS) 5 mg tab(s) Take 1 tablet by mouth two times a day. To start after the starter pack - ondansetron (ZOFRAN) 8 mg tablet Take 1 tablet by mouth every 8 hours as needed for nausea/vomiting. - venlafaxine ER (EFFEXOR XR) 75 mg 24 hr capsule Take 1 capsule by mouth two times a day. - lisinopril (ZESTRIL) 20 mg tablet Take 1 tablet by mouth once daily. - carvedilol (COREG) 12.5 mg tablet Take 1 tablet by mouth two times a day. - metFORMIN ER (GLUCOPHAGE XR) 500 mg 24 hr tablet Take 2 tablets by mouth daily with breakfast. - rosuvastatin (CRESTOR) 5 mg tablet Take 1 tablet by mouth once daily. - pantoprazole DR (PROTONIX) 40 mg tablet Take 1 tablet by mouth once daily. - blood sugar diagnostic (BLOOD GLUCOSE TEST) test strip Test blood sugar(s) one time daily. Dx: Type 2 DM - Controlled E11.9 Insulin: No - albuterol HFA (PROAIR HFA) 90 mcg/actuation inhaler Inhale 2 Puffs as instructed every 6 hours as needed. - benzonatate (TESSALON PERLES) 100 mg capsule Take 2 capsules by mouth three times a day as needed. - Cranberry 500 mg cap Take 1 capsule by mouth twice daily. - oxyCODONE ER (OXYCONTIN) 10 mg 12 hr tablet Take 10 mg by mouth every 12 hours. - morphine IR 15 mg tablet Take 15 mg by mouth twice daily. - L. acidophilus-L. rhamnosus (PROBIOTIC) 15 billion cell cap Take 1 scoop by mouth once daily. - therapeutic multivitamin (THERA VITAMIN) tablet Take 1 tablet by mouth once daily. - Vit V-Zcgwex-Osbxhs-Grap e 49-241-46-75-20 mg cap Take by mouth. - CALCIUM CARBONATE/VITAMIN D2 (CALCIUM + VITAMIN D ORAL) Take by mouth once daily. Gummies, calcium 1000 mg and vit d 1600 IU - aspirin(ADULT ASPIRIN EC LOW STRENGTH 81 MG TAB, DELAYED RELEASE) Take by mouth twice daily. Problem List As Of Date 02/25/2024 Noted Resolved ABNORMAL CARDIOVASC STUDY NOS [R94.30] 01/08/2005 Essential hypertension [I10] 01/08/2005 Dysmetabolic syndrome X [E88.810] 01/08/2005 08/08/2016 Phlebitis and thrombophlebitis of unspecified s*01/08/2005 04/27/2020 Disorder of kidney and ureter [N28.9] GENERAL OSTEOARTHROSIS [M15.9] MYALGIA AND MYOSITIS NOS [[id number]] Depressive disorder, not elsewhere classified [* 09/08/2012 ESOPHAGEAL REFLUX [K21.9] CHRONIC CYSTITIS NEC [N30.20] 05/22/2005 OTHER SPEC DISORDER URETHRA [N36.8] 05/22/2005 KNEE JOINT REPLACEMENT STATUS [Z96.659] 12/08/2005 ROTATOR CUFF SYND NOS [M71.9, M67.919] 03/23/2006 LUMBOSACRAL NEURITIS NOS [WQB5886] Pain in limb [M79.609] 02/18/2008 11/28/2015 BONE AND CARTILAGE DIS NEC [M94.8X9, M89.8X9] 03/15/2008 MIXED HYPERLIPIDEMIA [E78.2] Urinary frequency [R35.0] 08/07/2008 09/08/2012 Acute gastritis without mention of hemorrhage [*12/04/2008 11/28/2015 Displacement of lumbar intervertebral disc with*03/15/2012 Trigger finger (acquired) [M65.30] 03/15/2012 Nausea [R11.0] 11/28/2015 Gout [M10.9] Airway obstruction [J98.8] 08/29/2014 VT (ventricular tachycardia) (HCC) [I47.20] 01/09/2016 04/08/2016 Controlled type 2 diabetes mellitus without com*08/08/2016 CKD (chronic kidney disease) [N18.9] 08/23/2016 12/24/2016 Takotsubo syndrome [I51.81] 12/24/2016 12/13/2020 Stage 3 chronic kidney disease (HCC) [N18.30] 12/24/2016 12/13/2020 Class 1 obesity due to excess calories with bod*01/03/2018 Reactive depression [F32.9] Acute CHF (congestive heart failure) (HCC) [I50*09/07/2020 12/13/2020 History of SD (myocardial infarction) [I25.2] 09/07/2020 Ventricular tachycardia by electrocardiogram (H*09/07/2020 Recurrent major depress (more content not included)... Normal [facility] Basic Metabolic Profile (BMP )on 02-24-2024 BUN/CRE 8.8 RATIO Low 10- [facility] Comment on above: Performed By: #### L 100.0100, L500.4050 #### [facility] [address] [place], [address] CA,Total 8.8 mg/dL Normal 8.5-10.1 [facility] Comment on above: Performed By: #### L 100.0100, L500.4050 #### [facility] [address] [place], [address] Chloride [Moles/Vol] 106 mmol/L Normal 98-107 [facility] Comment on above: Performed By: #### L 100.0100, L500.4050 #### [facility] [address] [place], [address] CO2 [Moles/Vol] 28.0 mmol/L Normal 21.0-32.0 [facility] Comment on above: Performed By: #### L 100.0100, L500.4050 #### [facility] [address] [place], [address] Creatinine [Mass/Vol] 0.90 mg/dL Normal 0.55-1.02 [facility] Comment on above: Result Comment: The validity of the calculated GFR GFRAA in patients over 70 years has not been determined. Clinical correlation is essential. Performed By: #### L 100.0100, L500.4050 #### [facility] [address] [place], [address] ECRCL 59.37 ml/min Normal [facility] Comment on above: Performed By: #### L 100.0100, L500.4050 #### [facility] [address] [place], [address] EST GFR - AA 79 mL/min Normal >60 [facility] Comment on above: Result Comment: Afri can [place] GFR Calc Performed By: #### L 100.0100, L500.4050 #### [facility] [address] [place], [address] GAP 5 Normal 5-15 [facility] Comment on above: Performed By: #### L 100.0100, L500.4050 #### [facility] [address] [place], [address] GFR/1.73 sq M.predicted among non-blacks MDRD (S/P/Bld) [Vol rate/Area] 65 mL/min/{1.73_m2} Normal >60 [facility] Comment on above: Result Comment: Non- GFR Calc Performed By: #### L 100.0100, L500.4050 #### [facility] [address] [place], [address] Glucose [Mass/Vol] 92 mg/dL Normal 74-106 [facility] Comment on above: Performed By: #### L 100.0100, L500.4050 #### [facility] [address] [place], [address] Potassium [Moles/Vol] 3.6 mmol/L Normal 3.5-5.1 [facility] Comment on above: Performed By: #### L 100.0100, L500.4050 #### [facility] [address] [place], [address] Sodium [Moles/Vol] 138 mmol/L Normal 136-145 [facility] Comment on above: Performed By: #### L 100.0100, L500.4050 #### [facility] [address] [place], [address] Urea nitrogen [Mass/Vol] 8 mg/dL Normal 7-18 [facility] Comment on above: Performed By: #### L 100.0100, L500.4050 #### [facility] [address] [place], [address] Bedside Glucoseon 02-24-2024 FINGERSTICK GLU 107 mg/dL High 74-106 [facility] Comment on above: Result Comment: WOO GEMENT OF PATIENT CARE PER NURSING PROTOCOL Performed By: #### L 501.080 #### [facility] [address] [place], [address] FINGERSTICK GLU 96 mg/dL Normal 74-106 [facility] Comment on above: Result Comment: WOO GEMENT OF PATIENT CARE PER NURSING PROTOCOL Performed By: #### L 501.080 #### [facility] [address] [place], [address] CBC W/Diff, Automatedon 10- Absolute Lymph 1.97 X10 3/uL Normal 0.83-4.51 [facility] Comment on above: Performed By: #### L 400.0001 #### [facility] [address] [place], [address] Absolute Neut 5.5 X10 3/uL Normal 2.0-7.7 [facility] Comment on above: Performed By: #### L 400.0001 #### [facility] [address] [place], [address] Basophils/100 WBC (Bld) 0.6 % Normal 0-1 [facility] Comment on above: Performed By: #### L 400.0001 #### [facility] [address] [place], [address] Eosinophils/100 WBC (Bld) 2.6 % Normal 0-5 [facility] Comment on above: Performed By: #### L 400.0001 #### [facility] [address] [facility] [place], [address] Erythrocyte distribution width (RBC) [Ratio] 12.4 % Normal 11.6-14.6 [facility] Comment on above: Performed By: #### L 400.0001 #### [facility] [address] [place], [address] Hematocrit (Bld) [Volume fraction] 33.4 % Low 37-47 [facility] Comment on above: Performed By: #### L 400.0001 #### [facility] [address] [place] [address]. [place], [address] Hemoglobin (Bld) [Mass/Vol] 10.7 g/dL Low 12.0-15.0 [facility] Comment on above: Performed By: #### L 400.0001 #### [facility] [address] [place], [address] IG% 0.400 Normal 0.0-0.9 [facility] Comment on above: Result Comment: IG% - Immature Granulocytes (promyelocytes, myelocytes and metamyelocytes) > 1% indicates that a LEFT SHIFT is Present. Performed By: #### L 400.0001 #### [facility] [address] [place], [address] Lymphocytes/100 WBC (Bld) 23.5 % Normal 19-41 [facility] Comment on above: Performed By: #### L 400.0001 #### [facility] [address] [place] [place], [address] MCH (RBC) [Entitic mass] 29.8 pg Normal 27.0-32.0 [facility] Comment on above: Performed By: #### L 400.0001 #### [facility] [address] [place], [address] MCHC (RBC) [Mass/Vol] 32.0 g/dL Normal 32-36 [facility] Comment on above: Performed By: #### L 400.0001 #### [facility] [address] [place], [address] MCV (RBC) [Entitic vol] 93.0 fL Normal 81-99 [facility] Comment on above: Performed By: #### L 400.0001 #### [facility] [address] [place], [address] Monocytes/100 WBC (Bld) 7.4 % Normal 0-10 [facility] Comment on above: Performed By: #### L 400.0001 #### [facility] [address] [place], [address] Neutrophils/100 WBC (Bld) 65.5 % Normal 47-70 [facility] Comment on above: Performed By: #### L 400.0001 #### [facility] [address] [place], [address] Nucleated RBC (Bld) [#/Vol] 0 10*3/uL Normal 0-5 [facility] Comment on above: Performed By: #### L 400.0001 #### [facility] [address] [place], [address] Platelet mean volume (Bld) [Entitic vol] 9.3 fL Normal 6.2-12.0 [facility] Comment on above: Performed By: #### L 400.0001 #### [facility] [address] [place], [address] Platelets (Bld) [#/Vol] 325 10*3/uL Normal 150-450 [facility] Comment on above: Performed By: #### L 400.0001 #### [facility] [address] [place], [address] RBC (Bld) [#/Vol] 3.59 10*6/uL Low 4.2-5.4 [facility] Comment on above: Performed By: #### L 400.0001 #### [facility] [address] [place], [address] RDW SD 42.8 fl Normal 35.1-43.9 [facility] Comment on above: Performed By: #### L 400.0001 #### [facility] [address] [place], [address] WBC (Bld) [#/Vol] 8.4 10*3/uL Normal 4.4-11.0 [facility] Comment on above: Performed By: #### L 400.0001 #### [facility] [address] [place], [address] 12 Lead EKGon 02-23-2024 12 Lead EKG [facility] Cardiovascular Services [address] [place] [address] 12 Lead EKG 02/23/24 1916 MR#: [id number] Acct: [id number] Name: CHAPRARITA BARAJAS Rep #: [id number] : 1955 68 From: Castillo March MD Attending Dr: Dr. Karlie Ann MD Status: DI S EUGENIE Ordering Dr: Teddy Ching MD Date: 02/23/24 Location: [facility] Sex: F C Admitted: 02/23/24 Test Reason : BLOOD CLOT Blood Pressure : / mmHG Vent. Rate : 072 BPM Atrial Rate : 072 BPM P-R Int : 170 ms QRS Dur : 076 ms QT Int : 380 ms P-R-T Axes : 026 037 050 degrees QTc Int : 416 ms Normal sinus rhythm Normal ECG When compared with ECG of 07-FEB-2024 18:13, No significant change was found Confirmed by Castillo March ([id number]), non linear editor JOANNA AMADO ([id number]) on 02/25/2024 1:15:22 PM Referred By: HUMZA Confirmed By:Castillo March 02/25/24 1315 Date Castillo March MD CC: Dr. Sheri Hutchins MD; Dr. Karlie Ann MD; Dr. Teddy Ching MD Signed Normal [facility] Abdomen/Pelvis W IV Cont ONL Yon 02-23-2024 Abdomen/Pelvis W IV Cont ONLY [facility] Imaging Services [address] [place] [address] Abdomen/Pelvis W IV Cont ONLY MR#: [id number] Acct: [id number] Name: CHAPARRIAT BARAJAS Rep #: [id number] : 1955 F 68 From: Robin Dior MD PCP: Dr. Sheri Hutchins MD Status: REG ER Study: Abdomen/Pelvis W IV Cont ONLY Date of Exam: Exam# [id number] Ordering Dr: Imtiaz Dixon DO [id number] STUDY: CT ABDOMEN AND PELVIS WITH CONTRAST REASON FOR EXAM: Female, 68 years old. hematuria RADIATION DOSAGE (If Supplied By Facility): CTDIvol = ( 23.78 ) mGy, DLP = ( 1351.04 ) mGycm TECHNIQUE: Transaxial images were obtained from the dome of the diaphragm to the symphysis pubis without oral contrast. 100ml ISOVUE 370 was administered. Sagittal and coronal images were reconstructed. Individualized dose optimization techniques were used for this CT. COMPARISON: None. FINDINGS: The visualized lung bases are unremarkable. The visualized portions of the heart are within normal limits. Normal liver. Normal gallbladder and extrahepatic biliary system. Normal spleen. Normal pancreas. Normal bilateral adrenal glands. Normal right kidney. Normal left kidney. Normal visualized stomach. Normal small intestine. Normal colon. The appendix is visualized and appears normal. Normal abdominal aorta. Normal inferior vena cava. Normal retroperitoneum. Limited study of the bladder due to artifact related to hip prostheses producing artifact as well as none opacification with contrast however there is no definite abnormality.. There is absence of the uterus consistent with a prior hysterectomy. Normal abdominal wall. Lumbar spine demonstrates degenerative changes Bilateral hip prostheses are noted CT/Abdomen/Pelvis W IV Cont ONLY IMPRESSION: No significant abnormalities given limited visualization of the bladder due to artifact and lack of contrast opacification. Ultrasound may be useful for more definitive evaluation Electronically Signed: Robin Dior MD at 17:23 EDT , CC: Dr. Sheri Hutchins MD; Dr. Imtiaz Dixon DO Marine Operations Coordinator: Signed Normal [facility] Basic Metabolic Profile (BMP )on 02-23-2024 BUN/CRE 8.3 RATIO Low 10-20 [facility] Comment on above: Performed By: #### L 400.0001 #### [facility] [address] [place], [address] CA,Total 9.7 mg/dL Normal 8.5-10.1 [facility] Comment on above: Performed By: #### L 400.0001 #### [facility] [address] [place], [address] Chloride [Moles/Vol] 105 mmol/L Normal 98-107 [facility] Comment on above: Performed By: #### L 400.0001 #### [facility] [address] [facility] [address] CO2 [Moles/Vol] 33.0 mmol/L High 21.0-32.0 [facility] Comment on above: Performed By: #### L 400.0001 #### [facility] [address] [place], [address] Creatinine [Mass/Vol] 1.08 mg/dL High 0.55-1.02 [facility] Comment on above: Result Comment: The validity of the calculated GFR GFRAA in patients over 70 years has not been determined. Clinical correlation is essential. Performed By: #### L 400.0001 #### [facility] [address] [place], [address] ECRCL 49.24 ml/min Normal [facility] Comment on above: Performed By: #### L 400.0001 #### [facility] [address] [place], [address] EST GFR - AA 64 mL/min Normal >60 [facility] Comment on above: Result Comment: Afri can [place] GFR Calc Performed By: #### L 400.0001 #### [facility] [address] [place], [address] GAP 4 Low 5-15 [facility] Comment on above: Performed By: #### L 400.0001 #### [facility] [address] [place], [address] GFR/1.73 sq M.predicted among non-blacks MDRD (S/P/Bld) [Vol rate/Area] 53 mL/min/{1.73_m2} Low >60 [facility] Comment on above: Result Comment: Non- GFR Calc Performed By: #### L 400.0001 #### [facility] [address] [place], [address] Glucose [Mass/Vol] 108 mg/dL High 74-106 [facility] Comment on above: Result Comment: Fast ing Glucose result from 100 to 125 mg/dL suggests IMPAIRED HOMEOSTASIS per A.D.A. criteria. Performed By: #### L 400.0001 #### [facility] [address] [place], [address] Potassium [Moles/Vol] 4.3 mmol/L Normal 3.5-5.1 [facility] Comment on above: Performed By: #### L 400.0001 #### [facility] [address] [place], [address] Sodium [Moles/Vol] 142 mmol/L Normal 136-145 [facility] Comment on above: Performed By: #### L 400.0001 #### [facility] [address] [place], [address] Urea nitrogen [Mass/Vol] 9 mg/dL Normal 7-18 [facility] Comment on above: Performed By: #### L 400.0001 #### [facility] [address] [place], [address] Bedside Glucoseon 02-23-2024 FINGERSTICK GLU 124 mg/dL High 74-106 [facility] Comment on above: Result Comment: WOO PARK OF PATIENT CARE PER NURSING PROTOCOL Performed By: #### L 501.080 #### [facility] [address] [place], [address] CBC-Complete Blood Cnt No Di ffon 02-23-2024 Erythrocyte distribution width (RBC) [Ratio] 12.4 % Normal 11.6-14.6 [facility] Comment on above: Performed By: #### L 400.0001 #### [facility] [address] [place], [address] Hematocrit (Bld) [Volume fraction] 37.4 % Normal 37-47 [facility] Comment on above: Performed By: #### L 400.0001 #### [facility] [address] [place], [address] Hemoglobin (Bld) [Mass/Vol] 11.9 g/dL Low 12.0-15.0 [facility] Comment on above: Performed By: #### L 400.0001 #### [facility] [address] [place], [address] MCH (RBC) [Entitic mass] 29.8 pg Normal 27.0-32.0 [facility] Comment on above: Performed By: #### L 400.0001 #### [facility] [address] [place], [address] MCHC (RBC) [Mass/Vol] 31.8 g/dL Low 32-36 [facility] Comment on above: Performed By: #### L 400.0001 #### [facility] [address] [place], [address] MCV (RBC) [Entitic vol] 93.5 fL Normal 81-99 [facility] Comment on above: Performed By: #### L 400.0001 #### [facility] [address] [place], [address] Platelet mean volume (Bld) [Entitic vol] 9.2 fL Normal 6.2-12.0 [facility] Comment on above: Performed By: #### L 400.0001 #### [facility] [address] [place], [address] Platelets (Bld) [#/Vol] 355 10*3/uL Normal 150-450 [facility] Comment on above: Performed By: #### L 400.0001 #### [facility] [address] [place], [address] RBC (Bld) [#/Vol] 4.00 10*6/uL Low 4.2-5.4 [facility] Comment on above: Performed By: #### L 400.0001 #### [facility] [address] [place], [address] RDW SD 42.3 fl Normal 35.1-43.9 [facility] Comment on above: Performed By: #### L 400.0001 #### [facility] [address] [place], [address] WBC (Bld) [#/Vol] 8.9 10*3/uL Normal 4.4-11.0 [facility] Comment on above: Performed By: #### L 400.0001 #### [facility] [address] [place], [address] Consultation - Surgicalon Consultation - Surgical [facility] Medical Records Department [address] [place] [address] Consultation - Surgical 02/23/24 1847 MR#: [id number] Acct: [id number] Name: CHAPARRITA BARAJAS Rep #: [id number] : 1955 68 From: Beth ZARAGOZA PCP: Dr. Sheri Hutchins MD Status:ADM EUGENIE Location: [place] [address] Assessment Plan Assessment/Plan (1) DVT (deep venous thrombosis): (2) Hematuria: PLAN: Plan Agree IVC filter is indicated given active hematuria and concurrent acute DVT. Discussed IVC Filter insertion procedure details including risks, benefits, and recovery with patient and her present family. All of their questions and concerns were addressed. She is agreeable. Will proceed with IVC filter placement tonight. Hospitalist agreed to admit her to medicine overnight for recovery and observation. HPI Consult Data Date of Consult: 02/23/24 HPI Narrative HPI Narrative: CHAPARRITA BARAJAS, is a 68 F who presents to the [facility] ER with significant acute gross hematuria with associated acute anemia with Hgb decrease from 13.0 to 11.9 in the setting of recently diagnosed acute LLE DVT currently on Eliquis. We are consulted for consideration of IVC Filter placement. She reports week long history of progressively worsened painless hematuria. She has an appointment with urology in 2 weeks but has not been seen and is not currently scheduled for any procedures. She denies any prior such hematuria. About 8 days ago she was started on Eliquis for an acute LLE DVT up to the femoral vein. She reports that prior to this DVT she did have a flu-like illness with associated vomiting/diarrhea so was pretty fatigued/inactive and dehydrated. She reports she has had 5 prior DVTs intially provoked by hormonal control and subsequently by procedures/surgeries . However, she had not been chronically anticoagulated in the last several years, just treated prophylactically around procedures. She only just recently completed a hypercoagulable workup, she does not have these results back yet. [facility] Medical History Diabetes type 2, controlled Arthritis Hypertension Home Medications ???Medication ???Instructions ???Recorded ???Last Taken ???Type aspirin 81 mg tablet,delayed 325 mg PO DAILY@0800 04/18/14 Unknown History release atenolol 50 mg tablet 50 mg PO DAILY 04/18/14 01/02/16 07:15 History calcium 600 mg-D3 800 unit-mag 40 1 ea PO DAILY 04/18/14 Unknown History fn-sxpa-frie-zuly-belle martin chew tablet (Caltrate 600-D Plus Minerals) lisinopril 5 mg tablet 5 mg PO DAILY 04/18/14 01/02/16 07:15 History oxycodone 15 mg tablet,crush 15 mg PO Q4H PRN Pain 04/18/14 01/02/16 07:15 History resistant,extended release 12 hr (OxyContin) simvastatin 20 mg tablet 20 mg PO QHS 04/18/14 Unknown History venlafaxine 75 mg tablet 75 mg PO BID 04/18/14 Unknown History Equate Sleep Aid 50 mg PO QHS PRN PRN Sleep 12/17/15 Unknown History Morphine [Morphine Ir] 30 mg PO TID 12/17/15 01/02/16 07:15 History cephalexin 250 mg capsule (Keflex) 250 mg PO DAILY 12/17/15 Unknown History clonidine HCl 0.2 mg tablet 0.2 mg PO DAILY 12/17/15 01/02/16 07:15 History cranberry extract 200 mg capsule 150 mg PO DAILY 12/17/15 Unknown History krill 1 ea PO DAILY 12/17/15 Unknown History swj-ld-6-dha-epa-mandeep spholipids 300 mg-90 mg-24 mg-50 mg capsule (krill oil) multivitamin with folic acid 400 1 tab PO DAILY 12/17/15 Unknown History mcg tablet (Thera) pantoprazole 40 mg tablet,delayed 40 mg PO DAILY 12/17/15 01/02/16 07:15 History release cephalexin 500 mg capsule 500 mg PO Q6 ##40 01/15/16 Unknown Rx cephalexin 500 mg capsule 500 mg PO Q6 7 days #28 CAPSULES 02/07/24 Unknown Rx apixaban 5 mg (74 tabs) tablets in 5 mg PO BID #74 tabs 02/14/24 Unknown Rx a dose pack (Eliquis DVT-PE Treat 30D Start) Allergy/AdvReac Type Severity Reaction Status Date / Time codeine Allergy Other Verified 02/23/24 13:01 lorazepam (From Ativan) Allergy Unknown Verified 02/23/24 13:01 amoxicillin (Amoxicillin) AdvReac Nausea Verified 02/23/24 13:01 etodolac (From Lodine) AdvReac Diarrhea Verified 02/23/24 13:01 fluticasone propionate (From AdvReac Other Verified 02/23/24 13:01 Flovent Diskus) lansoprazole (From Prevacid) AdvReac Unknown Verified 02/23/24 13:01 lubiprostone AdvReac Nausea Verified 02/23/24 13:01 misoprostol (From Cytotec) AdvReac Diarrhea Verified 02/23/24 13:01 nitrofurantoin (From AdvReac Nausea Verified 02/23/24 13:01 Macrobid) nitrofurantoin AdvReac Nausea Verified 02/23/24 13:01 macrocrystalline (From Macrobid) topiramate (From Topamax) AdvReac Nausea Verified 02/23/24 13:01 Family History Grandmother Myocardial infarction Social Hist (more content not included)... Normal [facility] Emergency Department Summary on 02-23-2024 Emergency Department Summary [facility] Medical Records Department [address] [place] [address] Emergency Department Summary 02/23/24 MR#: [id number] Acct: [id number] Name: CHAPARRITA BARAJAS Rep #: [id number] : 1955 68 From: Imtiaz Dixon DO PCP: Dr. Sheri Hutchins MD Status:ADM EUGENIE Location: [place] [address] HPI History of Present Illness Chief Complaint: Complaint Detail of Chief Complaint: Hematuria Informant: patient Narrative Narrative: Patient presents to the emergency department complaint of hematuria that started 7 days ago. Patient states that she was started on Eliquis 8 days ago for history of a DVT in her left leg. Patient tells me the DVT was below the knee but this is her sixth DVT. Apparently there is been testing done to look for clotting disorders but she does not have results. Patient states that she was called by urology today to set up an appointment but they cannot see her for another 2 weeks and she does not know the name of the urologist she is going to follow-up with. Patient complains of feeling fatigued. She denies any chest pain or shortness of breath. Patient states that she was also treated for UTI with Keflex when she was diagnosed with her DVT. She describes some mild lower abdominal cramping at times. She denies any back pain. She has had no fever. [facility] Medical History Diabetes type 2, controlled Arthritis Hypertension Home Medications ???Medication ???Instructions ???Recorded ???Last Taken ???Type aspirin 81 mg tablet,delayed 325 mg PO DAILY@0800 04/18/14 Unknown History release atenolol 50 mg tablet 50 mg PO DAILY 04/18/14 01/02/16 07:15 History calcium 600 mg-D3 800 unit-mag 40 1 ea PO DAILY 04/18/14 Unknown History id-fdrc-bbwz-zuly-belle martin chew tablet (Caltrate 600-D Plus Minerals) lisinopril 5 mg tablet 5 mg PO DAILY 04/18/14 01/02/16 07:15 History oxycodone 15 mg tablet,crush 15 mg PO Q4H PRN Pain 04/18/14 01/02/16 07:15 History resistant,extended release 12 hr (OxyContin) simvastatin 20 mg tablet 20 mg PO QHS 04/18/14 Unknown History venlafaxine 75 mg tablet 75 mg PO BID 04/18/14 Unknown History Equate Sleep Aid 50 mg PO QHS PRN PRN Sleep 12/17/15 Unknown History Morphine [Morphine Ir] 30 mg PO TID 12/17/15 01/02/16 07:15 History cephalexin 250 mg capsule (Keflex) 250 mg PO DAILY 12/17/15 Unknown History clonidine HCl 0.2 mg tablet 0.2 mg PO DAILY 12/17/15 01/02/16 07:15 History cranberry extract 200 mg capsule 150 mg PO DAILY 12/17/15 Unknown History krill 1 ea PO DAILY 12/17/15 Unknown History vgr-jq-2-dha-epa-mandeep spholipids 300 mg-90 mg-24 mg-50 mg capsule (krill oil) multivitamin with folic acid 400 1 tab PO DAILY 12/17/15 Unknown History mcg tablet (Thera) pantoprazole 40 mg tablet,delayed 40 mg PO DAILY 12/17/15 01/02/16 07:15 History release cephalexin 500 mg capsule 500 mg PO Q6 ##40 01/15/16 Unknown Rx cephalexin 500 mg capsule 500 mg PO Q6 7 days #28 CAPSULES 02/07/24 Unknown Rx apixaban 5 mg (74 tabs) tablets in 5 mg PO BID #74 tabs 02/14/24 Unknown Rx a dose pack (Eliquis DVT-PE Treat 30D Start) Allergy/AdvReac Type Severity Reaction Status Date / Time codeine Allergy Other Verified 02/23/24 13:01 lorazepam (From Ativan) Allergy Unknown Verified 02/23/24 13:01 amoxicillin (Amoxicillin) AdvReac Nausea Verified 02/23/24 13:01 etodolac (From Lodine) AdvReac Diarrhea Verified 02/23/24 13:01 fluticasone propionate (From AdvReac Other Verified 02/23/24 13:01 Flovent Diskus) lansoprazole (From Prevacid) AdvReac Unknown Verified 02/23/24 13:01 lubiprostone AdvReac Nausea Verified 02/23/24 13:01 misoprostol (From Cytotec) AdvReac Diarrhea Verified 02/23/24 13:01 nitrofurantoin (From AdvReac Nausea Verified 02/23/24 13:01 Macrobid) nitrofurantoin AdvReac Nausea Verified 02/23/24 13:01 macrocrystalline (From Macrobid) topiramate (From Topamax) AdvReac Nausea Verified 02/23/24 13:01 Family History Grandmother Myocardial infarction Social History Smoking Status: Former smoker ROS ROS ED Review of Systems ROS Unobtainable: other Constitutional Constitutional ED: Reports lethargy; Denies chills, fever(s), sweats or weight loss Eyes Eyes: Denies blurry vision, change in vision or diplopia ENT ENT ED: Denies rhinorrhea or sore throat Cardiovascular Cardiovascular: Denies chest pain, orthopnea or racing heartbeat Respiratory/Chest Respiratory/Chest: Denies cough, dyspnea, dyspnea on exertion, orthopnea or sputum Gastrointestinal Gastrointestinal: Reports abdominal pain; Denies diarrhea, nausea or vomiting Genitourinary Genitourinary ED: Reports hematu (more content not included)... Normal [facility] H AND P Exam - Hospitaliston 02-23-2024 H&P Exam - Hospitalist [facility] Medical Records Department [address] [place] [address] H P Exam - Hospitalist 02/23/24 1857 MR#: [id number] Acct: [id number] Name: CHAPARRITA BARAJAS Rep #: [id number] : 1955 68 From: Teddy Ching MD PCP: Dr. Sheri Hutchins MD Status:ADM EUGENIE Location: [place] [address] HPI - General General Date of Admission: 02/23/24 Date of Service: 02/23/24 Chief Complaint: Hematuria after 1 L starting Eliquis. HPI Narrative CHAPARRITA BARAJAS, is a 68 F came to ED after 1 day of starting Eliquis for DVT of left lower extremity. Patient came to ED on 02/14/2024 with swelling of left lower extremity for 2 days and found to have diffuse left lower extremity DVT on venous duplex. Prior to that she was having diarrhea and was dehydrated. She also has a history of 6 DVTs in the past including the last week DVT. Patient started having hematuria after 1 day on Eliquis 10 mg twice daily. Hematuria increased over the last 1 week and she feels fatigued. She also tried to make appointment with urologist but could not get it for next 2 weeks complain of mild abdominal cramping. In ED vitals reviewed and is in normal range. On visual exam patient has blood in the urine. ED physician called Dr. Chandler and patient is scheduled for Alisha filter tonight. [facility] Medical History Diabetes type 2, controlled Arthritis Hypertension Home Medications ???Medication ???Instructions ???Recorded ???Last Taken ???Type aspirin 81 mg tablet,delayed 325 mg PO DAILY@0800 04/18/14 Unknown History release atenolol 50 mg tablet 50 mg PO DAILY 04/18/14 01/02/16 07:15 History calcium 600 mg-D3 800 unit-mag 40 1 ea PO DAILY 04/18/14 Unknown History va-omuj-qxov-zuly-belle martin chew tablet (Caltrate 600-D Plus Minerals) lisinopril 5 mg tablet 5 mg PO DAILY 04/18/14 01/02/16 07:15 History oxycodone 15 mg tablet,crush 15 mg PO Q4H PRN Pain 04/18/14 01/02/16 07:15 History resistant,extended release 12 hr (OxyContin) simvastatin 20 mg tablet 20 mg PO QHS 04/18/14 Unknown History venlafaxine 75 mg tablet 75 mg PO BID 04/18/14 Unknown History Equate Sleep Aid 50 mg PO QHS PRN PRN Sleep 12/17/15 Unknown History Morphine [Morphine Ir] 30 mg PO TID 12/17/15 01/02/16 07:15 History cephalexin 250 mg capsule (Keflex) 250 mg PO DAILY 12/17/15 Unknown History clonidine HCl 0.2 mg tablet 0.2 mg PO DAILY 12/17/15 01/02/16 07:15 History cranberry extract 200 mg capsule 150 mg PO DAILY 12/17/15 Unknown History krill 1 ea PO DAILY 12/17/15 Unknown History meo-zr-9-dha-epa-mandeep spholipids 300 mg-90 mg-24 mg-50 mg capsule (krill oil) multivitamin with folic acid 400 1 tab PO DAILY 12/17/15 Unknown History mcg tablet (Thera) pantoprazole 40 mg tablet,delayed 40 mg PO DAILY 12/17/15 01/02/16 07:15 History release cephalexin 500 mg capsule 500 mg PO Q6 ##40 01/15/16 Unknown Rx cephalexin 500 mg capsule 500 mg PO Q6 7 days #28 CAPSULES 02/07/24 Unknown Rx apixaban 5 mg (74 tabs) tablets in 5 mg PO BID #74 tabs 02/14/24 Unknown Rx a dose pack (Eliquis DVT-PE Treat 30D Start) Allergy/AdvReac Type Severity Reaction Status Date / Time codeine Allergy Other Verified 02/23/24 13:01 lorazepam (From Ativan) Allergy Unknown Verified 02/23/24 13:01 amoxicillin (Amoxicillin) AdvReac Nausea Verified 02/23/24 13:01 etodolac (From Lodine) AdvReac Diarrhea Verified 02/23/24 13:01 fluticasone propionate (From AdvReac Other Verified 02/23/24 13:01 Flovent Diskus) lansoprazole (From Prevacid) AdvReac Unknown Verified 02/23/24 13:01 lubiprostone AdvReac Nausea Verified 02/23/24 13:01 misoprostol (From Cytotec) AdvReac Diarrhea Verified 02/23/24 13:01 nitrofurantoin (From AdvReac Nausea Verified 02/23/24 13:01 Macrobid) nitrofurantoin AdvReac Nausea Verified 02/23/24 13:01 macrocrystalline (From Macrobid) topiramate (From Topamax) AdvReac Nausea Verified 02/23/24 13:01 Family History Grandmother Myocardial infarction Social History Smoking Status: Former smoker ROS ROS Narrative Constitutional: Reports fatigue and weakness. No fever. HEENT: Reports systems reviewed and no addt'l complaints, except as documented Respiratory/Chest: No acute shortness of breath or respiratory distress or wheezing. CVS: No chest pain pressure or tightness. Gastrointestinal: Denies coffee ground emesis, hematemesis or vomiting Genitourinary: Hematuria as described in HPI. Chronic UTI and just completed therapeutic dose of Keflex. On chronic prophylactic dose of Keflex too. Complain of mild burning micturition. Musculoskeletal: Left lower extremities swelling more than right lower extremity. No acute i (more content not included)... Normal [facility] Operative Reporton 4 Operative Report [facility] Medical Records Department [address] [place] [address] Operative Report 02/23/242003 MR#: [id number] Acct: [id number] Name: CHAPARRITA BARAJAS Rep #: [id number] : 1955 68 From: Vicente Chandler MD PCP: Dr. Sheri Hutchins MD Status:ADM EUGENIE Location: [place] [address] Report of Operation Date of Procedure: 02/23/24 Pre-Operative Diagnosis: DVT, hematuria Post-Operative Diagnosis: same Surgery/Procedure Performed:: insertion IVC filter Surgeon: Vicente Chandler Type of Anesthesia: Local and Sedation,Conscious Estimated Blood Loss (mL): 3 Description of Procedure: HPI: Patient is a 68-year-old female with recurrent deep venous thrombosis with most recent acute event within the last several weeks. She also had a concurrent urinary tract infection at the time of her DVT diagnosis. Upon initiation of anticoagulation she began to have hematuria which has persisted for approximately 1 week. Today she presented to the hospital because she was feeling more weak with generalized malaise and her hemoglobin was found to have decreased from her most recent baseline. She is taken now for urgent filter placement. Description of procedure: Upon obtaining form consent and verification correct patient procedure site patient was taken to the [facility] where she was positioned prepped and draped in usual sterile fashion. Timeouts performed conscious sedation administered Versed and fentanyl. Skin overlying the left common femoral vein was anesthetized 1% lidocaine the vessel accessed under ultrasound guidance with a micropuncture needle wire. This was then exchanged for micropuncture sheath routine injection ilio caval venogram was performed revealing satisfactory positioning with no extravasation dissection. This also revealed patent left iliac vein and inferior vena cava with no visible thrombus. Through the micropuncture sheath a J-wire was advanced and the micropuncture sheath was exchanged for the Bard Nicole filter delivery system which was advanced in the position adjacent to the L2 vertebral body. Digital subtraction venacavogram was then performed which confirmed normal caliber vena cava with no evidence of thrombus. This also revealed the confluence of the right renal vein which was the lowest which was then marked on the screen. Of note there was significant angulation of the inferior vena cava due to thoracic and lumbar spine angulation which centered at the renal vein confluence. Given this angulation and trajectory of the wire was felt that the filter would be in satisfactory position with relation to the vena cava angulation though it would appear angulated on fluoroscopy. The Bard Nicole filter was advanced in position and deployed below the right renal vein. Completion venacavogram performed revealed satisfactory filter placement with regards to no tilt of the filter compared to the vena cava. The sheath was then withdrawn and manual pressure held until hemostasis was obtained. The patient was then taken the PCU for bedrest and recovery and monitoring of her hematuria. 02/23/242015 Cosigner Signature (if applicable): CC: Dr. Vicente Chandler MD; Dr. Sheri Hutchins MD Signed Normal [facility] Type AND Screenon 02-23-2024 ABO and Rh group Nom (Bld) Blood group B Rh(D) positive Normal [facility] Comment on above: Order Comment: COLOR OF URINE MAY AFFECT DIPSTICK RESULTS. HEALTHCARE INSURANCE SALES AGENT TO SPECIFY Performed By: #### L 400.0001 #### [facility] [address] [place], [address] Urinalysis, Completeon 02-22 BACTERIA 2+ /hpf Normal None Seen [facility] Comment on above: Order Comment: COLOR OF URINE MAY AFFECT DIPSTICK RESULTS. HEALTHCARE INSURANCE SALES AGENT TO SPECIFY Performed By: #### L 400.0001 #### [facility] [address] [place], [address] EPI,SQUAMOUS 0-5 SEEN Normal 5-10 [facility] Comment on above: Order Comment: COLOR OF URINE MAY AFFECT DIPSTICK RESULTS. HEALTHCARE INSURANCE SALES AGENT TO SPECIFY Performed By: #### L 400.0001 #### [facility] [address] [place], [address] RBC > 100 SEEN Normal 0-5 [facility] Comment on above: Order Comment: COLOR OF URINE MAY AFFECT DIPSTICK RESULTS. HEALTHCARE INSURANCE SALES AGENT TO SPECIFY Performed By: #### L 400.0001 #### [facility] [address] [place], [address] WBC 0-5 SEEN Normal 0-5 [facility] Comment on above: Order Comment: COLOR OF URINE MAY AFFECT DIPSTICK RESULTS. HEALTHCARE INSURANCE SALES AGENT TO SPECIFY Performed By: #### L 400.0001 #### [facility] [address] [place], [address] Mucus Ql (Urine sed) 0 SEEN Normal [facility] Comment on above: Order Comment: COLOR OF URINE MAY AFFECT DIPSTICK RESULTS. HEALTHCARE INSURANCE SALES AGENT TO SPECIFY Performed By: #### L 400.0001 #### [facility] [address] [place], [address] CNPNon 02-20-2024 CNPN Telephone (INTMWS) CHAPARRITA BARAJAS ([id number]) 1955 F Date Time Provider Department 02/20/24 SHERI HUTCHINS INTWS During your visit today, we recorded the following information about you: Vicki Stark RN 02/20/2024 10:35 AM Signed Patient calls to ask if the bleeding she is having in her urine should still be occurring. Patient met with Jack on 02/16/2024 for Acute DVT and gross hematuria. Patient reports that she continues to have bleeding in the urine. She believes it is in the toilet bowel but the water is blue so it is hard to tell. She also reports that she is incontinent and each time she changes her pad she has blood on it. She reports that it ranges from dark red, red, to sometimes looking green. The pad usually has blood that covers atleast a 50 cent size portion. Denies frequency beyond her normal, burning, fever, urgency, lower back pain beyond her normal, and stomach pain beyond what she has had since starting on the Eliquis. Patient currently on Eliquis 10 mg twice daily for 7 days. After today should be 5 mg twice daily. Please review and advise, ROSETTE Foley Liza D, MD 02/20/2024 12:05 PM Signed No significant growth on Urine Culture 02/15 Urine dip with 3+ blood and microscopic >25/HPF on 02/15 Since hematuria is persistent, should be seen by urology. See if has preference where should send referral for consult order. Ivana Navarro MA 02/20/2024 12:15 PM Signed Patient notified. Agreeable to see [facility] advise local at [facility]. Please place referral. Patient aware she will be contacted Thursday. NASIM Murrell Liza D, MD 02/20/2024 1:08 PM Signed Filed order Help schedule appointment Veronique Tobin 02/22/2024 8:48 AM Signed 1st attempt LVM to schedule consult to Urology Vicki Stark RN 02/23/2024 12:22 PM Signed Patient calls to report that she is scheduled with urology but is not able to get in for two weeks. Patient reports that she is urinating atleast 6 x a day and filling the toilet bowel with bright red blood and having to change the pad that is saturated with bright red blood every time for the past two days. Patient reports that she is starting to feel very weak. Based on triage protocol recommended patient go to ER now and she is agreeable. Patient is going to go to [facility] ER now. ROSETTE Foley Liza D, MD 02/23/2024 3:47 PM Signed Agree with ER evaluation Joanna Shah RN 02/23/2024 4:36 PM Signed Called and left a voicemail for the Patient to call back and ask for a nurse to receive the providers message. ROSETTE Bauer Lori, LPN 02/23/2024 4:51 PM Signed Pt returned the call AND was notified of provider's message. Pt states she is currently at [facility] ER, she went around 12:30 today. Pt asked to call with an update after discharge. Zamzam Cobian LPN Allergies As of Date: 02/20/2024 Noted Allergy Reaction ADHESIVE 12/17/2012 2 - Rash Comments: Bandaids- swelling, rash AMOXICILLIN 03/05/2005 8 - GI Upset ATIVAN (LORAZEPAM) 01/08/2005 5 - Intolerance CODEINE 03/05/2005 CYTOTEC (MISOPROSTOL) 03/26/2005 6 - Diarrhea FLOVENT (FLUTICASONE PROPIONATE) 07/24/2008 Comments: Severe headaches. LODINE (ETODOLAC) 03/26/2005 5 - Intolerance LUBIPROSTONE 11/06/2011 8 - GI Upset MACROBID (NITROFURANTOIN MONOHYD/*05/30/2005 Comments: nausea. 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 - apixaban (ELIQUIS) 5 mg tab(s) Take 1 tablet by mouth two times a day. To start after the starter pack - ondansetron (ZOFRAN) 8 mg tablet Take 1 tablet by mouth every 8 hours as needed for nausea/vomiting. - venlafaxine ER (EFFEXOR XR) 75 mg 24 hr capsule Take 1 capsule by mouth two times a day. - lisinopril (ZESTRIL) 20 mg tablet Take 1 tablet by mouth once daily. - carvedilol (COREG) 12.5 mg tablet Take 1 tablet by mouth two times a day. - metFORMIN ER (GLUCOPHAGE XR) 500 mg 24 hr tablet Take 2 tablets by mouth daily with breakfast. - rosuvastatin (CRESTOR) 5 mg tablet Take 1 tablet by mouth once daily. - pantoprazole DR (PROTONIX) 40 mg tablet Take 1 tablet by mouth once daily. - blood sugar diagnostic (BLOOD GLUCOSE TEST) test strip Test blood sugar(s) one time daily. Dx: Type 2 DM - Controlled E11 (more content not included)... [facility] AT III Act/Nor PPP Chroon Antithrombin actual/normal Chromogenic method (PPP) [Rel catalytic activity/Vol] 122 % Normal 84-138 [facility] Comment on above: Order Comment: Speci men Type: BLOOD SPECIMENOrdering Facility: [facility] Address: [address] [place] [address] Performed By: #### 2 7811-9, PRCFUN ####[facility] LABCLIA [id number] [place] [address] [place] Bacteria Ur Culton Bacteria identified Cx Nom (U) ORGANISM ID: 1 <10,000 CFU/ml Normal urogenital bobby Normal [facility] Comment on above: Performed By: #### 6 30-4 ####[facility] LABCLIA [id number] [place] [address] [place] CBC W Auto Differential pane l (Bld)on 02-16-2024 Basophils (Bld) [#/Vol] 0.06 10*3/uL Normal <0.11 [facility] Comment on above: Order Comment: Speci men Type: BLOOD SPECIMEN Ordering Facility: [facility] Address: [address] [place] [address] Performed By: #### 5 7021-8 #### [facility] CLIA [id number] [address] [place] [address] [place] Basophils/100 WBC (Bld) 0.8 % Normal [facility] Comment on above: Order Comment: Speci men Type: BLOOD SPECIMEN Ordering Facility: [facility] Address: [address] [place] [place] [address] Performed By: #### 5 7021-8 #### [facility] CLIA [id number] [address] [place] [address] [place] Differential cell count method Nom (Bld) Auto Normal [facility] Comment on above: Order Comment: Speci men Type: BLOOD SPECIMEN Ordering Facility: [facility] Address: [address] [place] [address] Performed By: #### 5 7021-8 #### [facility] CLIA [id number] [address] [place] [address] [place] Eosinophils (Bld) [#/Vol] 0.32 10*3/uL Normal <0.46 [facility] Comment on above: Order Comment: Speci men Type: BLOOD SPECIMEN Ordering Facility: [facility] Address: [address] [place] [address] Performed By: #### 5 7021-8 #### [facility] CLIA [id number] [address] [place] [address] [place] Eosinophils/100 WBC (Bld) 4.2 % Normal [facility] Comment on above: Order Comment: Speci men Type: BLOOD SPECIMEN Ordering Facility: [facility] Address: [address] [place] [address] Performed By: #### 5 7021-8 #### [facility] CLIA [id number] [address] [place] [address] [place] Erythrocyte distribution width (RBC) [Ratio] 12.7 % Normal 11.5-15.0 [facility] Comment on above: Order Comment: Speci men Type: BLOOD SPECIMEN Ordering Facility: [facility] Address: [address] [place] [address] Performed By: #### 5 7021-8 #### [facility] CLIA [id number] [address] [place] [address] [place] Hematocrit (Bld) [Volume fraction] 39.5 % Normal 36.0-46.0 [facility] Comment on above: Order Comment: Speci men Type: BLOOD SPECIMEN Ordering Facility: [facility] Address: [address] [place] [address] Performed By: #### 5 7021-8 #### [facility] CLIA [id number] [address] [place] [address] [place] Hemoglobin (Bld) [Mass/Vol] 12.4 g/dL Normal 11.5-15.5 [facility] Comment on above: Order Comment: Speci men Type: BLOOD SPECIMEN Ordering Facility: [facility] Address: [address] [place] [address] Performed By: #### 5 7021-8 #### [facility] CLIA [id number] [address] [place] [address] [place] Immature granulocytes (Bld) [#/Vol] 10*3/uL Normal <0.10 [facility] Comment on above: Order Comment: Speci men Type: BLOOD SPECIMEN Ordering Facility: [facility] Address: [address] [place] [address] Performed By: #### 5 7021-8 #### [facility] CLIA [id number] [address] [place] [address] [place] Immature granulocytes/100 WBC (Bld) 0.3 % Normal [facility] Comment on above: Order Comment: Speci men Type: BLOOD SPECIMEN Ordering Facility: [facility] Address: [address] [place] [address] Performed By: #### 5 7021-8 #### [facility] CLIA [id number] [address] [place] [address] [place] Lymphocytes (Bld) [#/Vol] 1.99 10*3/uL Normal 1.00-4.00 [facility] Comment on above: Order Comment: Speci men Type: BLOOD SPECIMEN Ordering Facility: [facility] Address: [address] [place] [address] Performed By: #### 5 7021-8 #### [facility] CLIA [id number] [address] [place] [address] [place] Lymphocytes/100 WBC (Bld) 25.9 % Normal [facility] Comment on above: Order Comment: Speci men Type: BLOOD SPECIMEN Ordering Facility: [facility] Address: [address] [place] [address] Performed By: #### 5 7021-8 #### [facility] CLIA [id number] [address] [place] [address] [place] MCH (RBC) [Entitic mass] 29.5 pg Normal 26.0-34.0 [facility] Comment on above: Order Comment: Speci men Type: BLOOD SPECIMEN Ordering Facility: [facility] Address: [address] [place] [address] Performed By: #### 5 7021-8 #### [facility] CLIA [id number] [address] [place] [address] [place] MCHC (RBC) [Mass/Vol] 31.4 g/dL Normal 30.5-36.0 [facility] Comment on above: Order Comment: Speci men Type: BLOOD SPECIMEN Ordering Facility: [facility] Address: [address] [place] [address] Performed By: #### 5 7021-8 #### [facility] CLIA [id number] [address] [place] [address] [place] MCV (RBC) [Entitic vol] 93.8 fL Normal 80.0-100.0 [facility] Comment on above: Order Comment: Speci men Type: BLOOD SPECIMEN Ordering Facility: [facility] Address: [address] [place] [address] Performed By: #### 5 7021-8 #### [facility] CLIA [id number] [address] [place] [address] [place] Monocytes (Bld) [#/Vol] 0.53 10*3/uL Normal <0.87 [facility] Comment on above: Order Comment: Speci men Type: BLOOD SPECIMEN Ordering Facility: [facility] Address: [address] [place] [address] Performed By: #### 5 7021-8 #### [facility] CLIA [id number] [address] [place] [address] [place] Monocytes/100 WBC (Bld) 6.9 % Normal [facility] Comment on above: Order Comment: Speci men Type: BLOOD SPECIMEN Ordering Facility: [facility] Address: [address] [place] [address] Performed By: #### 5 7021-8 #### [facility] CLIA [id number] [address] [place] [address] [place] Neutrophils (Bld) [#/Vol] 4.77 10*3/uL Normal 1.45-7.50 [facility] Comment on above: Order Comment: Speci men Type: BLOOD SPECIMEN Ordering Facility: [facility] Address: [address] [place] [address] Performed By: #### 5 7021-8 #### [facility] CLIA [id number] [address] [place] [address] [place] Neutrophils/100 WBC (Bld) 61.9 % Normal [facility] Comment on above: Order Comment: Speci men Type: BLOOD SPECIMEN Ordering Facility: [facility] Address: [address] [place] [address] Performed By: #### 5 7021-8 #### [facility] CLIA [id number] [address] [place] [address] [place] Nucleated RBC (Bld) [#/Vol] 10*3/uL Normal <0.01 [facility] Comment on above: Order Comment: Speci men Type: BLOOD SPECIMEN Ordering Facility: [facility] Address: [address] [place] [address] Performed By: #### 5 7021-8 #### [facility] CLIA [id number] [address] [place] [address] [place] Nucleated RBC/100 WBC (Bld) [Ratio] 0.0 /100 WBC Normal [facility] Comment on above: Order Comment: Speci men Type: BLOOD SPECIMEN Ordering Facility: [facility] Address: [address] [place] [address] Performed By: #### 5 7021-8 #### [facility] CLIA [id number] [address] [place] [address] [place] Platelet mean volume (Bld) [Entitic vol] 9.6 fL Normal 9.0-12.7 [facility] Comment on above: Order Comment: Speci men Type: BLOOD SPECIMEN Ordering Facility: [facility] Address: [address] [place] [address] Performed By: #### 5 7021-8 #### [facility] CLIA [id number] [address] [place] [address] [place] Platelets (Bld) [#/Vol] 352 10*3/uL Normal 150-400 [facility] Comment on above: Order Comment: Speci men Type: BLOOD SPECIMEN Ordering Facility: [facility] Address: [address] [place] [address] Performed By: #### 5 7021-8 #### [facility] CLIA [id number] [address] [place] [address] [place] RBC (Bld) [#/Vol] 4.21 10*6/uL Normal 3.90-5.20 [facility] Comment on above: Order Comment: Speci men Type: BLOOD SPECIMEN Ordering Facility: [facility] Address: [address] [place] [address] Performed By: #### 5 7021-8 #### [facility] CLIA [id number] [address] [place] [address] [place] WBC (Bld) [#/Vol] 7.69 10*3/uL Normal 3.70-11.00 [facility] Comment on above: Order Comment: Speci men Type: BLOOD SPECIMEN Ordering Facility: [facility] Address: [address] [place] [address] Performed By: #### 5 7021-8 #### [facility] CLIA [id number] [address] [place] [address] [place] [address] [place] CNOVon 02-16-2024 CNOV Office Visit (INTMWS) CHAPARRITA BARAJAS ([id number]) 1955 F Date Time Provider Department 02/16/24 8:00 AM JACK LAWLER INTMWS During your visit today, we recorded the following information about you: Pulse Blood pressure Weight 73/minute 138/68 87.9 kg Jack Lawler APRN.REPAIR TECHNICIAN 02/16/2024 8:51 AM Signed SUBJECTIVE Chaparrita Barajas is a 68 year old female here today for an ER follow up. Chief Complaint Patient presents with: ER F/U: [facility] ER for DVT in left leg HPI Chaparrita Barajas is a 68 year old female. She is an established patient of Sheri Hutchins MD. Here today for ER follow up. Seen in the ER at [facility] 02/12 and 02/13. Diagnosed with DVT in the left leg. Started on Eliquis. Small amount of blood in the urine, just getting over a UTI. 6th DVT. Was never on halfway anticoagulation. ER suggested hypercoagulable work up. Still with some swelling in the left leg. No shortness of breath, no chest pain or chest tightness. Her medications were reviewed today and her list is now up to date. Medications Current Outpatient Medications Medication Sig ondansetron (ZOFRAN) 8 mg tablet Take 1 tablet by mouth every 8 hours as needed for nausea/vomiting. venlafaxine ER (EFFEXOR XR) 75 mg 24 hr capsule Take 1 capsule by mouth two times a day. lisinopril (ZESTRIL) 20 mg tablet Take 1 tablet by mouth once daily. carvedilol (COREG) 12.5 mg tablet Take 1 tablet by mouth two times a day. metFORMIN ER (GLUCOPHAGE XR) 500 mg 24 hr tablet Take 2 tablets by mouth daily with breakfast. rosuvastatin (CRESTOR) 5 mg tablet Take 1 tablet by mouth once daily. pantoprazole DR (PROTONIX) 40 mg tablet Take 1 tablet by mouth once daily. Cranberry 500 mg cap Take 1 capsule by mouth twice daily. oxyCODONE ER (OXYCONTIN) 10 mg 12 hr tablet Take 10 mg by mouth every 12 hours. morphine IR 15 mg tablet Take 15 mg by mouth twice daily. L. acidophilus-L. rhamnosus (PROBIOTIC) 15 billion cell cap Take 1 scoop by mouth once daily. therapeutic multivitamin (THERA VITAMIN) tablet Take 1 tablet by mouth once daily. Vit I-Xmpovg-Pgmohs-Grap e 12-381-70-75-20 mg cap Take by mouth. CALCIUM CARBONATE/VITAMIN D2 (CALCIUM + VITAMIN D ORAL) Take by mouth once daily. Gummies, calcium 1000 mg and vit d 1600 IU aspirin(ADULT ASPIRIN EC LOW STRENGTH 81 MG TAB, DELAYED RELEASE) Take by mouth twice daily. ELIQUIS DVT-PE TREAT 30D START 5 mg (74 tabs) Take 2 tablets by mouth two times a day. apixaban (ELIQUIS) 5 mg tab(s) Take 1 tablet by mouth two times a day. To start after the starter pack blood sugar diagnostic (BLOOD GLUCOSE TEST) test strip Test blood sugar(s) one time daily. Dx: Type 2 DM - Controlled E11.9 Insulin: No albuterol HFA (PROAIR HFA) 90 mcg/actuation inhaler Inhale 2 Puffs as instructed every 6 hours as needed. benzonatate (TESSALON PERLES) 100 mg capsule Take 2 capsules by mouth three times a day as needed. No current facility-administere d medications for this visit. ALLERGIES Allergen Reactions Adhesive Rash Bandaids- swelling, rash Amoxicillin GI Upset Ativan [Lorazepam] Intolerance Codeine Cytotec [Misoprosto* Diarrhea Flovent [Fluticason* Severe headaches. Lodine [Etodolac] Intolerance Lubiprostone GI Upset Macrobid [Nitrofura* nausea. ok with plain Macrodantin Prevacid [Lansopraz* Topamax [Topiramate] GI Upset Eyes blurry, could not eat for 2 weeks ,gi symptoms ACTIVE PROBLEM LIST Recurrent Major Depressive Disorder, in Partial Remission ([facility]) - 01/05/2022 History of SD (Myocardial Infarction) - 09/07/2020 Ventricular Tachycardia By Electrocardiogram ([facility]) - 09/07/2020 Class 1 Obesity Due to Excess Calories With Body Mass Index (Bmi) of 34.0 to 34.9 in Adult - 01/03/2018 Reactive Depression Controlled Type 2 Diabetes Mellitus Without Complication, Without Long-Term Current Use of Insulin ([facility]) - 08/08/2016 Airway Obstruction - 08/29/2014 Gout Displacement of Lumbar Intervertebral Disc Without Myelopathy - 03/15/2012 Trigger Finger (Acquired) - 03/15/2012 Mixed Hyperlipidemia Other Disorders of Bone and Cartilage(733.99) - 03/15/2008 Thoracic Or Lumbosacral Neuritis Or Radiculitis, Unspecified Disorders of Bursae and Tendons in Shoulder Region, Unspecified - 03/23/2006 Knee Joint Replacement By Other Means - 12/08/2005 Other Chronic Cystitis - 05/22/2005 Other Specified Disorders of Urethra - 05/22/2005 Disorder of Kidney and Ureter Generalized Osteoarthrosis, Unspecified Site Myalgia and Myositis, Unspecified Esophageal Reflux Nonspecific Abnormal Unspecified Cardiovascular Function Study - 01/08/2005 Comment: December 03 on Myoview, area suspicious for a small focal anterior perfusion abnormality Essential Hypertension - 01/08/2005 Social History Tobacco Use Smoking status: Former Current packs/day: 0.00 Average packs/day: 0.5 packs/day for 15.0 yea (more content not included)... Normal [facility] Comprehensive metabolic 2000 panelon 02-16-2024 Albumin [Mass/Vol] 3.7 g/dL Low 3.9-4.9 [facility] Comment on above: Order Comment: Speci men Type: BLOOD SPECIMENOrdering Facility: [facility] Address: [address] [place] [address] Performed By: #### 2 4323-8 ####[facility]CLIA [id number] [place] [address] [place] ALP [Catalytic activity/Vol] 76 U/L Normal 34-123 [facility] Comment on above: Order Comment: Speci men Type: BLOOD SPECIMENOrdering Facility: [facility] Address: [address] [place] [address] Performed By: #### 2 4323-8 ####[facility] LABCLIA [id number] [place] [id number] [place] ALT [Catalytic activity/Vol] 12 U/L Normal 7-38 [facility] Comment on above: Order Comment: Speci men Type: BLOOD SPECIMENOrdering Facility: [facility] Address: [address] [place] [address] Performed By: #### 2 4323-8 ####[facility] LABCLIA [id number] [place] [address] [place] Anion gap [Moles/Vol] 10 mmol/L Normal 8-15 [facility] Comment on above: Order Comment: Speci men Type: BLOOD SPECIMENOrdering Facility: [facility] Address: [address] [place] [address] Performed By: #### 2 4323-8 ####[facility]CLIA [id number] [place] [address] [place] AST [Catalytic activity/Vol] 20 U/L Normal 13-35 [facility] Comment on above: Order Comment: Speci men Type: BLOOD SPECIMENOrdering Facility: [facility] Address: [address] [place] [address] Performed By: #### 2 4323-8 ####[facility] LABCLIA [id number] [place] [address] [place] Bilirubin [Mass/Vol] 0.5 mg/dL Normal 0.2-1.3 [facility] Comment on above: Order Comment: Speci men Type: BLOOD SPECIMENOrdering Facility: [facility] Address: [address] [place] [address] Performed By: #### 2 4323-8 ####[facility] LABCLIA [id number] [facility] [place] [address] [place] Calcium [Mass/Vol] 9.2 mg/dL Normal 8.5-10.2 [facility] Comment on above: Order Comment: Speci men Type: BLOOD SPECIMENOrdering Facility: [facility] Address: [address] [place] [address] Performed By: #### 2 4323-8 ####[facility] LABCLIA [id number] [place] [address] [place] Chloride [Moles/Vol] 102 mmol/L Normal 98-107 [facility] Comment on above: Order Comment: Speci men Type: BLOOD SPECIMENOrdering Facility: [facility] Address: [address] [place] [address] Performed By: #### 2 4323-8 ####[facility] LABCLIA [id number] [place] [address] [place] CO2 [Moles/Vol] 28 mmol/L Normal 22-30 [facility] Comment on above: Order Comment: Speci men Type: BLOOD SPECIMENOrdering Facility: [facility] Address: [address] [place] [address] Performed By: #### 2 4323-8 ####[facility] LABCLIA [id number] [place] [address] [place] Creatinine [Mass/Vol] 1.01 mg/dL High 0.58-0.96 [facility] Comment on above: Order Comment: Speci men Type: BLOOD SPECIMENOrdering Facility: [facility] Address: [address] [place] [address] Performed By: #### 2 4323-8 ####[facility] LABCLIA [id number] [place] [address] [place] Creatinine and Glomerular filtration rate.predicted panel (S/P/Bld) 60 mL/min/1.73m??? Normal >=60 [facility] Comment on above: Order Comment: Bhanu valente Type: BLOOD SPECIMENOrdering Facility: [facility] Address: [address] [place] [address] Result Comment: Susie mated Glomerular Filtration Rate (eGFR) is calculated using the 2020 CKD-EPI creatinine equation. This equation utilizes serum creatinine, sex, and age as parameters. The creatinine assay has traceable calibration to isotope dilution-mass spectrometry. Refer to KDIGO guidelines for clinical interpretation. In patients with unstable renal function, e.g. those with acute kidney injury, the eGFR may not accurately reflect actual GFR. Performed By: #### 2 4323-8 ####[facility] LABIA [id number] [place] [address] [place] Glucose [Mass/Vol] 113 mg/dL High 74-99 [facility] Comment on above: Order Comment: Bhanu valente Type: BLOOD SPECIMENOrdering Facility: [facility] Address: [address] [place] [address] Result Comment: The [place] [employer] (ADA) provides guidance for cutoff values for fasting glucose and random glucose. The ADA defines fasting as no caloric intake for at least 8 hours. Fasting plasma glucose results between 100 to 125 mg/dL indicate increased risk for diabetes (prediabetes). Fasting plasma glucose results greater than or equal to 126 mg/dL meet the criteria for diagnosis of diabetes. In the absence of unequivocal hyperglycemia, results should be confirmed by repeat testing. In a patient with classic symptoms of hyperglycemia or hyperglycemic crisis, random plasma glucose results greater than or equal to 200 mg/dL meet the criteria for diagnosis of diabetes. Reference: Standards of Medical Care in Diabetes 2016, [place] [employer]. Diabetes Care. 2016.39(Suppl 1). Performed By: #### 2 4323-8 ####[facility] LABIA [id number] [place] [address] [place] Potassium [Moles/Vol] 4.4 mmol/L Normal 3.7-5.1 [facility] Comment on above: Order Comment: Bhanu valente Type: BLOOD SPECIMENOrdering Facility: [facility] Address: [address] [place] [address] Performed By: #### 2 4323-8 ####[facility] LABIA [id number] [place] [address] [place] Protein [Mass/Vol] 6.5 g/dL Normal 6.3-8.0 [facility] Comment on above: Order Comment: Speci men Type: BLOOD SPECIMENOrdering Facility: [facility] Address: [address] [place] [address] Performed By: #### 2 4323-8 ####[facility] LABIA [id number] [place] [address] [place] Sodium [Moles/Vol] 140 mmol/L Normal 136-144 [facility] Comment on above: Order Comment: Speci men Type: BLOOD SPECIMENOrdering Facility: [facility] Address: [address] [place] [address] Performed By: #### 2 4323-8 ####[facility] LABIA [id number] [place] [address] [place] Urea nitrogen [Mass/Vol] 8 mg/dL Normal 7-21 [facility] Comment on above: Order Comment: Speci men Type: BLOOD SPECIMENOrdering Facility: [facility] Address: [address] [place] [address] Performed By: #### 2 4323-8 ####[facility] LABIA [id number] [place] [address] [place] FACTOR V LEIDEN/PCRon 2023 FACTOR V LEIDEN PCR REPORT Normal [facility] Comment on above: Order Comment: Speci men Type: BLOOD SPECIMENOrdering Facility: [facility] Address: [address] [place] [address] Result Comment: Fact or V Leiden PCR Laboratory Accession Number: [id number] Result: NEGATIVE Interpretation: The DNA sample is negative for the c.1601G>A variant (legacy name [id number]) in the Factor V (F5) gene. This variant is commonly known as Factor V Leiden. This result is not associated with an increased risk of thromboembolic disease. The Factor V Leiden assay will not detect individuals with activated protein C resistance who do not have the c.1601G>A variant (less than 5% of those with activated protein C resistance). These individuals may be identified by ordering the functional assay for Activated Protein C Resistance. Thromboembolic disease is a multifactorial disorder, and other causes are not excluded by this result. Methodology: Isolated genomic DNA from the patient's blood specimen is evaluated for the c.1601G>A ([id number].[id number]) variant of the F5 gene [RefSeq NM_000130.4; GRCh38/hg38] by multiplex polymerase chain reaction (PCR) followed by melting curve analysis. Limitations: This assay is designed to detect the c.1601G>A variant in the F5 gene. Uncommon variants or single nucleotide polymorphisms may affect binding of probes and may rarely result in false negative, false positive or indeterminate results. This assay does not detect other disease-associated rare variants on F5 or other causes of thromboembolic disease. Disclaimer: This test was developed and its performance characteristics determined by [facility]'s Pathology and Laboratory Medicine Department. It has not been cleared or approved by the FDA. [facility]'s Pathology and Laboratory Medicine Department is regulated under CLIA as certified to perform high-complexity testing. This test is used for clinical purposes. It should not be regarded as investigational or for research. Testing and interpretation performed at [facility], [address] [place] [address]. CLIA Number: [id number] References: 1) Stef R, Danette G, Alin P. The genetics of venous thromboembolism. A meta-analysis involving approximately 120,000 cases and 180,000 controls. Thromb Haemost 2009;102(2):360-70. 2) Inherited Thrombophilias in . ACOG Practice Bulletin.No.197.[employer] [employer]. Obstet Gynecol 2018;132:e18-34. 3) Barry ONEILL. Factor V Leiden Thrombophilia. Ana Med.2011;13(1):1-16. 4) Pharmacogenomics summary [email or web address] As reviewed by Isabel Jj MD Performed By: #### F VLEI ####[facility] [id number] [address] [place] PROTEIN C FUNCTon 02-16-2024 Protein C actual/normal Coag (PPP) [Relative time] 106 % Normal 76-147 [facility] Comment on above: Order Comment: Speci men Type: BLOOD SPECIMENOrdering Facility: [facility] Address: [address] [place] [address] Performed By: #### 2 7811-9, PRCFUN ####[facility] [id number] [address] [place] PROTEIN S IMMUNOon Protein S actual/normal Chromogenic method (PPP) [Rel catalytic activity/Vol] 147 % Normal 74-156 [facility] Comment on above: Order Comment: Speci men Type: BLOOD SPECIMENOrdering Facility: [facility] Address: [address] [place] [address] Performed By: #### P ROTSI ####[facility] [id number] [address] [place] Protein S Free Ag actual/normal IA (PPP) [Relative mass conc] 109 % Normal 55-148 [facility] Comment on above: Order Comment: Speci men Type: BLOOD SPECIMENOrdering Facility: [facility] Address: [address] [place] [address] Performed By: #### P ROTSI ####[facility] [id number] [place] [address] [place] Urinalysis complete panel (U )on 02-16-2024 Bilirubin Ql (U) Negative Normal Negative [facility] Comment on above: Order Comment: Speci men Type: URINE SPECIMENOrdering Facility: [facility] Address: [address] [place] [address] Performed By: #### 2 4356-8 ####[facility] LABCLIA [id number] [place] [address] [place] Clarity (Unsp spec) Cloudy Abnormal Clear [facility] Comment on above: Order Comment: Speci men Type: URINE SPECIMENOrdering Facility: [facility] Address: [address] [place] [address] Performed By: #### 2 4356-8 ####[facility] LABCLIA [id number] [place] [address] [place] Color (U) Red Abnormal Yellow [facility] Comment on above: Order Comment: Speci men Type: URINE SPECIMENOrdering Facility: [facility] Address: [address] [place] [address] Performed By: #### 2 4356-8 ####[facility] LABCLIA [id number] [place] [address] [place] Glucose Test strip (U) [Mass/Vol] Negative Normal Negative [facility] Comment on above: Order Comment: Speci men Type: URINE SPECIMENOrdering Facility: [facility] Address: [address] [place] [address] Performed By: #### 2 4356-8 ####[facility] LABCLIA [id number] [place] [address] [place] Hemoglobin Ql (U) 3+ Abnormal Negative [facility] Comment on above: Order Comment: Speci men Type: URINE SPECIMENOrdering Facility: [facility] Address: [address] [place] [address] Performed By: #### 2 4356-8 ####[facility] LABCLIA [id number] [place] [address] [place] Ketones Ql (U) Negative Normal Negative [facility] Comment on above: Order Comment: Speci men Type: URINE SPECIMENOrdering Facility: [facility] Address: [address] [place] [address] Performed By: #### 2 4356-8 ####[facility] LABCLIA [id number] [place] [address] [place] Leukocyte esterase Test strip Ql (U) Negative Normal Negative [facility] Comment on above: Order Comment: Speci men Type: URINE SPECIMENOrdering Facility: [facility] Address: [address] [place] [address] Performed By: #### 2 4356-8 ####[facility] LABIA [id number] [place] [address] [place] Nitrite Ql (U) Negative Normal Negative [facility] Comment on above: Order Comment: Speci men Type: URINE SPECIMENOrdering Facility: [facility] Address: [address] [place] [address] Performed By: #### 2 4356-8 ####[facility] LABIA [id number] [place] [address] [place] pH (U) 6.5 [pH] Normal 5.0-8.0 [facility] Comment on above: Order Comment: Speci men Type: URINE SPECIMENOrdering Facility: [facility] Address: [address] [place] [address] Performed By: #### 2 4356-8 ####[facility] LABIA [id number] [place] [address] [place] Protein (U) [Mass/Vol] Normal Cl [facility] Comment on above: Order Comment: Speci men Type: URINE SPECIMENOrdering Facility: [facility] Address: [address] [place] [address] Result Comment: Visi ble blood causes falsely elevated results for analyte Protein. Due to this limitation, Protein will not be reported for patients whose urine contains visible blood. Performed By: #### 2 4356-8 ####[facility] LABIA [id number] [place] [id number] [place] RBC LM.HPF (Urine sed) [#/Area] /[HPF] Abnormal 0-3 /HPF [facility] Comment on above: Order Comment: Speci men Type: URINE SPECIMENOrdering Facility: [facility] Address: [address] [place] [address] Performed By: #### 2 4356-8 ####[facility] LABIA [id number] [place] [address] [place] Specific gravity (U) [Rel density] 1.020 Normal 1.005-1.030 [facility] Comment on above: Order Comment: Speci men Type: URINE SPECIMENOrdering Facility: [facility] Address: [address] [place] [address] Performed By: #### 2 4356-8 ####[facility] LABIA [id number] [place] [address] [place] Urobilinogen Ql (U) 0.2 EU/dL Normal 0.2-1.0 EU/dL [facility] Comment on above: Order Comment: Speci men Type: URINE SPECIMENOrdering Facility: [facility] Address: [address] [place] [address] Performed By: #### 2 4356-8 ####[facility] LABIA [id number] [place] [address] [place] WBC LM.HPF (Urine sed) [#/Area] 0-5 /HPF Normal 0-5 /HPF [facility] Comment on above: Order Comment: Speci men Type: URINE SPECIMENOrdering Facility: [facility] Address: [address] [place] [address] Performed By: #### 2 4356-8 ####[facility] LABIA [id number] [place] [address] [place] Emergency Department Summary on 02-14-2024 Emergency Department Summary [facility] Medical Records Department [address] [place] [address] Emergency Department Summary 02/14/24 MR#: [id number] Acct: [id number] Name: CHAPARRITA BARAJAS Rep #: [id number] : 1955 68 From: Adonis Lozano DO PCP: Dr. Sheri Hutchins MD Status:DEP ER Location: ED HPI History of Present Illness Chief Complaint: Lower Extremity Injury Narrative Narrative: Patient presenting today after having a positive DVT study performed this morning. She reports that over the past 2 days she has had swelling to her left lower leg with pain behind her knee and to her left calf. She was seen yesterday evening in the ED and was given a shot of Lovenox, she was given an outpatient order for a DVT study which she had performed this morning which came back positive. 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 She denies any recent surgeries, travel, immobilization, chest pain, or shortness of breath. She has a PMH of prior DVT, HTN, DM, and arthritis. [facility] Medical History Diabetes type 2, controlled Arthritis Hypertension Home Medications ???Medication ???Instructions ???Recorded ???Last Taken ???Type aspirin 81 mg tablet,delayed 325 mg PO DAILY@0800 04/18/14 Unknown History release atenolol 50 mg tablet 50 mg PO DAILY 04/18/14 01/02/16 07:15 History calcium 600 mg-D3 800 unit-mag 40 1 ea PO DAILY 04/18/14 Unknown History ja-gjed-nqbw-zuly-belle martin chew tablet (Caltrate 600-D Plus Minerals) lisinopril 5 mg tablet 5 mg PO DAILY 04/18/14 01/02/16 07:15 History oxycodone 15 mg tablet,crush 15 mg PO Q4H PRN Pain 04/18/14 01/02/16 07:15 History resistant,extended release 12 hr (OxyContin) simvastatin 20 mg tablet 20 mg PO QHS 04/18/14 Unknown History venlafaxine 75 mg tablet 75 mg PO BID 04/18/14 Unknown History Equate Sleep Aid 50 mg PO QHS PRN PRN Sleep 12/17/15 Unknown History Morphine [Morphine Ir] 30 mg PO TID 12/17/15 01/02/16 07:15 History cephalexin 250 mg capsule (Keflex) 250 mg PO DAILY 12/17/15 Unknown History clonidine HCl 0.2 mg tablet 0.2 mg PO DAILY 12/17/15 01/02/16 07:15 History cranberry extract 200 mg capsule 150 mg PO DAILY 12/17/15 Unknown History krill 1 ea PO DAILY 12/17/15 Unknown History tvu-hi-5-dha-epa-mandeep spholipids 300 mg-90 mg-24 mg-50 mg capsule (krill oil) multivitamin with folic acid 400 1 tab PO DAILY 12/17/15 Unknown History mcg tablet (Thera) pantoprazole 40 mg tablet,delayed 40 mg PO DAILY 12/17/15 01/02/16 07:15 History release cephalexin 500 mg capsule 500 mg PO Q6 ##40 01/15/16 Unknown Rx cephalexin 500 mg capsule 500 mg PO Q6 7 days #28 CAPSULES 02/07/24 Unknown Rx apixaban 5 mg (74 tabs) tablets in 5 mg PO BID #74 tabs 02/14/24 Unknown Rx a dose pack (Eliquis DVT-PE Treat 30D Start) Allergy/AdvReac Type Severity Reaction Status Date / Time codeine Allergy Other Verified 02/14/24 10:50 lorazepam (From Ativan) Allergy Unknown Verified 02/14/24 10:50 amoxicillin (Amoxicillin) AdvReac Nausea Verified 02/14/24 10:50 etodolac (From Lodine) AdvReac Diarrhea Verified 02/14/24 10:50 fluticasone propionate (From AdvReac Other Verified 02/14/24 10:50 Flovent Diskus) lansoprazole (From Prevacid) AdvReac Unknown Verified 02/14/24 10:50 lubiprostone AdvReac Nausea Verified 02/14/24 10:50 misoprostol (From Cytotec) AdvReac Diarrhea Verified 02/14/24 10:50 nitrofurantoin (From AdvReac Nausea Verified 02/14/24 10:50 Macrobid) nitrofurantoin AdvReac Nausea Verified 02/14/24 10:50 macrocrystalline (From Macrobid) topiramate (From Topamax) AdvReac Nausea Verified 02/14/24 10:50 Family History Grandmother Myocardial infarction Social History Smoking Status: Former smoker ROS ROS ED Constitutional Constitutional ED: Denies chills or fever(s) Cardiovascular Cardiovascular: Denies chest pain Respiratory/Chest Respiratory/Chest: Denies dyspnea Gastrointestinal Gastrointestinal: Denies abdominal pain, nausea or vomiting Musculoskeletal Musculoskeletal: Reports myalgias Integumentary Denies rash Neurologic Neurologic: Denies paresthesias EXAM Physical Exam Const Vital Signs: 02/14/24 10:50 Temperature 98.3 F Temperature Source Temporal Pulse Rate 63 Respiratory Rate 14 Blood Pressure 154/68 H Blood Pressure Mean 96 Pulse Ox 95 Oxygen Delivery Method Room Air Positive well nourished, well developed and no apparent distress General Appearance ED: well developed HEENT Reports normocephalic and head/scalp (more content not included)... Normal [facility] Venous Duplex US, Unilateral on 02-14-2024 Venous Duplex US, Unilateral [facility] Cardiovascular Services [address] [facility] [address] Venous Duplex US, Unilateral 02/14/24 1011 MR#: [id number] Acct: [id number] Name: CHAPARRITA BARAJAS Rep #: [id number] : 1955 68 From: Aaron Villalpando MD Attending Dr: Dr. Dima Augustine DO Status: REG CLI Ordering Dr: Dima Augustine DO Date: 02/14/24 Location: US Sex: F C Admitted: Reason For Study: LLE SWELLIG RIGHT LEFT CFV is compressible, spontaneous, phasic, GSV is normal. competent and demonstrates normal CFV is compressible, spontaneous, phasic, augmentation. competent, and demonstrates normal Procedure augmentation. This is a venous duplex using B-mode, color Acute deep vein thrombosis is noted in the flow and spectral Doppler. FV. It is dilated and NONCOMPRESSIBLE. Exam performed in department. Acute deep vein thrombosis is noted in the A preliminary report was called and/or faxed POP V. It is dilated and NONCOMPRESSIBLE. to PT taken to ED for treatment/assessment . Acute deep vein thrombosis is noted in the T/P Trunk. It is dilated and NONCOMPRESSIBLE. Acute deep vein thrombosis is noted in the PTV. It is dilated and NONCOMPRESSIBLE. Acute deep vein thrombosis is noted in the Per V. It is dilated and NONCOMPRESSIBLE. VL/Venous Duplex US, Unilateral Interpretation Summary Acute deep vein thrombosis is noted in the left femoral vein. Acute deep vein thrombosis is noted in the left popliteal vein. Acute deep vein thrombosis is noted in the left tibio-peroneal trunk. Acute deep vein thrombosis is noted in the left posterior tibial vein. Acute deep vein thrombosis is noted in the left peroneal vein. The left common femoral vein is patent and competent. The left great saphenous vein appears patent and compressible segmentally. The right common femoral vein is patent and compressible . Ordering Physician: Dima Augustine Referring Physician: Sheri Hutchins Performed By: Laurel Lao RDCS, RVT 02/16/24 0000 Date Aaron Villalpando MD CC: Dr. Sheri Hutchins MD; Dr. Dima Augustine DO Date Dictated: 02/14/24 1011 Date Transcribed: 02/16/24 0000 Marine Operations Coordinator: Signed Normal [facility] Emergency Department Summary on 02-13-2024 Emergency Department Summary [facility] Medical Records Department [address] [place] [address] Emergency Department Summary 02/13/24 MR#: [id number] Acct: [id number] Name: CHAPARRITA BARAJAS Rep #: [id number] : 1955 68 From: Dima Augustine DO PCP: Dr. Sheri Hutchins MD Status:DEP ER Location: ED [facility] History of Present Illness Chief Complaint: Edema [facility] Medical History (Updated 02/13/24 @ 20:19 by Se Wesley) Diabetes type 2, controlled Arthritis Hypertension Home Medications ???Medication ???Instructions ???Recorded ???Last Taken ???Type aspirin 81 mg tablet,delayed 325 mg PO DAILY@0800 04/18/14 Unknown History release atenolol 50 mg tablet 50 mg PO DAILY 04/18/14 01/02/16 07:15 History calcium 600 mg-D3 800 unit-mag 40 1 ea PO DAILY 04/18/14 Unknown History as-fvxz-afwa-zluy-belle martin chew tablet (Caltrate 600-D Plus Minerals) lisinopril 5 mg tablet 5 mg PO DAILY 04/18/14 01/02/16 07:15 History oxycodone 15 mg tablet,crush 15 mg PO Q4H PRN Pain 04/18/14 01/02/16 07:15 History resistant,extended release 12 hr (OxyContin) simvastatin 20 mg tablet 20 mg PO QHS 04/18/14 Unknown History venlafaxine 75 mg tablet 75 mg PO BID 04/18/14 Unknown History Equate Sleep Aid 50 mg PO QHS PRN PRN Sleep 12/17/15 Unknown History Morphine [Morphine Ir] 30 mg PO TID 12/17/15 01/02/16 07:15 History cephalexin 250 mg capsule (Keflex) 250 mg PO DAILY 12/17/15 Unknown History clonidine HCl 0.2 mg tablet 0.2 mg PO DAILY 12/17/15 01/02/16 07:15 History cranberry extract 200 mg capsule 150 mg PO DAILY 12/17/15 Unknown History krill 1 ea PO DAILY 12/17/15 Unknown History qwn-fu-5-dha-epa-mandeep spholipids 300 mg-90 mg-24 mg-50 mg capsule (krill oil) multivitamin with folic acid 400 1 tab PO DAILY 12/17/15 Unknown History mcg tablet (Thera) pantoprazole 40 mg tablet,delayed 40 mg PO DAILY 12/17/15 01/02/16 07:15 History release cephalexin 500 mg capsule 500 mg PO Q6 ##40 01/15/16 Unknown Rx cephalexin 500 mg capsule 500 mg PO Q6 7 days #28 CAPSULES 02/07/24 Unknown Rx Allergy/AdvReac Type Severity Reaction Status Date / Time codeine Allergy Other Verified 02/13/24 19:59 lorazepam (From Ativan) Allergy Unknown Verified 02/13/24 19:59 amoxicillin (Amoxicillin) AdvReac Nausea Verified 02/13/24 19:59 etodolac (From Lodine) AdvReac Diarrhea Verified 02/13/24 19:59 fluticasone propionate (From AdvReac Other Verified 02/13/24 19:59 Flovent Diskus) lansoprazole (From Prevacid) AdvReac Unknown Verified 02/13/24 19:59 lubiprostone AdvReac Nausea Verified 02/13/24 19:59 misoprostol (From Cytotec) AdvReac Diarrhea Verified 02/13/24 19:59 nitrofurantoin (From AdvReac Nausea Verified 02/13/24 19:59 Macrobid) nitrofurantoin AdvReac Nausea Verified 02/13/24 19:59 macrocrystalline (From Macrobid) topiramate (From Topamax) AdvReac Nausea Verified 02/13/24 19:59 Family History (Updated 02/13/24 @ 20:21 by Se Wesley) Grandmother Myocardial infarction Social History Smoking Status: Never smoker EXAM Physical Exam Const Vital Signs: 02/13/24 19:59 02/13/24 20:18 02/13/24 20:43 Temperature 96.5 F L 97.8 F Temperature Source Temporal Pulse Rate 67 65 Respiratory Rate 15 16 Respiratory Effort Normal Respiratory Pattern Normal Blood Pressure 127/83 H 137/72 H Blood Pressure Mean 97 93 Pulse Ox 98 99 Oxygen Delivery Method Room Air MDM MDM MDM Narrative Medical decision making narrative: HISTORY OF PRESENT ILLNESS: 68-year-old female presents concern for leg swelling. Notes she has a history of DVT. Notes 2 days of left leg swelling. No falls or trauma. Patient denies active cancer, being bedridden for greater than 3 days. Denies any varicose veins, Denies major surgery within 12 weeks, recent paralysis. REVIEW OF SYSTEMS: Pertinent positives: Leg swelling Pertinent negatives: Chest pain, shortness of breath, syncope PHYSICAL EXAM: Nursing triage notes reviewed, Vital signs reviewed Constitutional: please see mdm Lungs: Clear to auscultation, No wheezing or rales. No increased work of breathing, no conversational dyspnea, no accessory muscle use, no nasal flaring. No respiratory distress noted Heart: Regular rate and rhythm, No murmurs, No rubs and No gallops, 2+ distal pulses (radial, femoral, posterior tibial) in all extremities Extremities: Obvious edema noted to the left lower extremity Neuro: No focal neurological deficits, cranial nerves II through XII intact, 5/5 strength in all extremities. Intact sensation to light touch in all extremities, 2+ reflexes bilateral patella tendons. Normal gait. No ataxia. Skin: No rash or lesions noted MEDICAL DECISION MAKING: Chief Compla (more content not included)... Normal [facility] Urine Cultureon 02-09-2024 URC Mixed Gram Positive Organisms Sterling Count 1000-10,000 MIXC Mixed contaminants. Submit a new specimen if indicated. Normal [facility] Comment on above: Performed By: #### M 100.2200 ####[facility] [id number] [facility] [place], [address] 12 Lead EKGon 02-07-2024 12 Lead EKG [facility] Cardiovascular Services [address] [place] [address] 12 Lead EKG 02/07/24 1813 MR#: [id number] Acct: [id number] Name: CHAPARRITA BARAJAS Rep #: [id number] : 1955 68 From: Garrison Delgado MD Attending Dr: Status: DEP ER Ordering Dr: Dheeraj Bloom MD Date: 02/07/24 Location: ED Sex: F C Admitted: Test Reason : Blood Pressure : / mmHG Vent. Rate : 072 BPM Atrial Rate : 072 BPM P-R Int : 140 ms QRS Dur : 086 ms QT Int : 376 ms P-R-T Axes : -09 057 048 degrees QTc Int : 411 ms Normal sinus rhythm Normal ECG Confirmed by JANI WOODWARD, GARRISON ([id number]), non linear editor CARLO BLOOD ([id number]) on 02/09/2024 6:31:45 AM Referred By: Confirmed By:GARRISON DELGADO MD 02/09/2431 Date Garrison Delgado MD CC: Dr. Dheeraj Bloom MD; Dr. Sheri Hutchins MD Signed Normal [facility] CBC W/Diff, Automatedon 01-10 Absolute Lymph 2.61 X10 3/uL Normal 0.83-4.51 [facility] Comment on above: Performed By: #### L 501.080 #### [facility] [address] [place], [address] Absolute Neut 6.4 X10 3/uL Normal 2.0-7.7 [facility] Comment on above: Performed By: #### L 501.080 #### [facility] [address] [place], [address] Basophils/100 WBC (Bld) 0.7 % Normal 0-1 [facility] Comment on above: Performed By: #### L 501.080 #### [facility] [address] [place], [address] Eosinophils/100 WBC (Bld) 3.2 % Normal 0-5 [facility] Comment on above: Performed By: #### L 501.080 #### [facility] [address] [place], [address] Erythrocyte distribution width (RBC) [Ratio] 12.2 % Normal 11.6-14.6 [facility] Comment on above: Performed By: #### L 501.080 #### [facility] [address] [place], [address] Hematocrit (Bld) [Volume fraction] 41.1 % Normal 37-47 [facility] Comment on above: Performed By: #### L 501.080 #### [facility] [address] [place], [address] Hemoglobin (Bld) [Mass/Vol] 13.0 g/dL Normal 12.0-15.0 [facility] Comment on above: Performed By: #### L 501.080 #### [facility] [address] [place], [address] IG% 0.500 Normal 0.0-0.9 [facility] Comment on above: Result Comment: IG% - Immature Granulocytes (promyelocytes, myelocytes and metamyelocytes) > 1% indicates that a LEFT SHIFT is Present. Performed By: #### L 501.080 #### [facility] [address] [place], [address] Lymphocytes/100 WBC (Bld) 25.9 % Normal 19-41 [facility] Comment on above: Performed By: #### L 501.080 #### [facility] [address] [place], [address] MCH (RBC) [Entitic mass] 29.4 pg Normal 27.0-32.0 [facility] Comment on above: Performed By: #### L 501.080 #### [facility] [address] [place], [address] MCHC (RBC) [Mass/Vol] 31.6 g/dL Low 32-36 [facility] Comment on above: Performed By: #### L 501.080 #### [facility] [address] [place], [address] MCV (RBC) [Entitic vol] 93.0 fL Normal 81-99 [facility] Comment on above: Performed By: #### L 501.080 #### [facility] [address] [place], [address] Monocytes/100 WBC (Bld) 6.3 % Normal 0-10 [facility] Comment on above: Performed By: #### L 501.080 #### [facility] [address] [place], [address] Neutrophils/100 WBC (Bld) 63.4 % Normal 47-70 [facility] Comment on above: Performed By: #### L 501.080 #### [facility] [address] [place], [address] Nucleated RBC (Bld) [#/Vol] 0 10*3/uL Normal 0-5 [facility] Comment on above: Performed By: #### L 501.080 #### [facility] [address] [place], [address] Platelet mean volume (Bld) [Entitic vol] 9.7 fL Normal 6.2-12.0 [facility] Comment on above: Performed By: #### L 501.080 #### [facility] [address] [place], [address] Platelets (Bld) [#/Vol] 316 10*3/uL Normal 150-450 [facility] Comment on above: Performed By: #### L 501.080 #### [facility] [address] [place], [address] RBC (Bld) [#/Vol] 4.42 10*6/uL Normal 4.2-5.4 [facility] Comment on above: Performed By: #### L 501.080 #### [facility] [address] [place], [address] RDW SD 42.1 fl Normal 35.1-43.9 [facility] Comment on above: Performed By: #### L 501.080 #### [facility] [address] [place], [address] WBC (Bld) [#/Vol] 10.1 10*3/uL Normal 4.4-11.0 [facility] Comment on above: Performed By: #### L 501.080 #### [facility] [address] [place], [place], [address] Chest 1 View (Portable)on Chest 1 View (Portable) [facility] Imaging Services [address] [place] [address] Chest 1 View (Portable) MR#: [id number] Acct: [id number] Name: CHAPARRITA BARAJAS Rep #: [id number] : 1955 F 68 From: Antony Jaeger MD PCP: Dr. Sheri Hutchins MD Status: [facility] Study: Chest 1 View (Portable) Date of Exam: 02/07/24 Exam# [id number] Ordering Dr: Dheeraj Bloom MD [id number] STUDY: X-RAY CHEST REASON FOR EXAM: Female, 68 years old. Chest pain TECHNIQUE: Single AP portable view of the chest. COMPARISON: 01/02/2016 FINDINGS: The lungs are clear and expanded. Elevated right hemidiaphragm. Normal size heart. Normal mediastinum and dougie. Normal visualized pulmonary arteries. Normal visualized aortic arch and descending thoracic aorta. Normal visualized thoracic spine. Status post bilateral shoulder reverse arthroplasty. There is no demonstrated abnormality of the visualized soft tissue structures of the upper abdomen. RAD/Chest 1 View (Portable) IMPRESSION: No active disease. Electronically Signed: Antony Jaeger MD at 19:21 EDT , CC: Dr. Dheeraj Bloom MD; Dr. Sheri Hutchins MD Marine Operations Coordinator: Signed Normal [facility] Metabolic Prof ilon 02-07-2024 Albumin [Mass/Vol] 3.3 g/dL Normal 3.2-5.0 [facility] Comment on above: Order Comment: 'TROP ' Serial specimen #1, #2 or #3: 1 Performed By: #### L 501.080 #### [facility] [address] [place], [address] Albumin/Globulin [Mass ratio] 0.9 {ratio} Normal 0.9-2.4 [facility] Comment on above: Order Comment: 'TROP ' Serial specimen #1, #2 or #3: 1 Performed By: #### L 501.080 #### [facility] [address] [place], [address] ALK P 81 U/L Normal 45-117 [facility] Comment on above: Order Comment: 'TROP ' Serial specimen #1, #2 or #3: 1 Performed By: #### L 501.080 #### [facility] [address] [place], [address] ALT [Catalytic activity/Vol] 13 U/L Normal 13-56 [facility] Comment on above: Order Comment: 'TROP ' Serial specimen #1, #2 or #3: 1 Performed By: #### L 501.080 #### [facility] [address] [place], [address] AST [Catalytic activity/Vol] 12 U/L Low 15-37 [facility] Comment on above: Order Comment: 'TROP ' Serial specimen #1, #2 or #3: 1 Performed By: #### L 501.080 #### [facility] [address] [place], [address] Bilirubin [Mass/Vol] 0.70 mg/dL Normal 0.20-1.00 [facility] Comment on above: Order Comment: 'TROP ' Serial specimen #1, #2 or #3: 1 Result Comment: For patients on eltrombopag therapy, use of Dimension [place] TBIL is not recommended. Performed By: #### L 501.080 #### [facility] [address] [place], [address] BUN/CRE 13.4 RATIO Normal 10-20 [facility] Comment on above: Order Comment: 'TROP ' Serial specimen #1, #2 or #3: 1 Performed By: #### L 501.080 #### [facility] [address] [place], [address] CA,Total 9.1 mg/dL Normal 8.5-10.1 [facility] Comment on above: Order Comment: 'TROP ' Serial specimen #1, #2 or #3: 1 Performed By: #### L 501.080 #### [facility] [address] [place], [address] Chloride [Moles/Vol] 103 mmol/L Normal 98-107 [facility] Comment on above: Order Comment: 'TROP ' Serial specimen #1, #2 or #3: 1 Performed By: #### L 501.080 #### [facility] [address] [place], [address] CO2 [Moles/Vol] 31.0 mmol/L Normal 21.0-32.0 [facility] Comment on above: Order Comment: 'TROP ' Serial specimen #1, #2 or #3: 1 Performed By: #### L 501.080 #### [facility] [address] [place], [address] Creatinine [Mass/Vol] 1.64 mg/dL High 0.55-1.02 [facility] Comment on above: Order Comment: 'TROP ' Serial specimen #1, #2 or #3: 1 Result Comment: The validity of the calculated GFR GFRAA in patients over 70 years has not been determined. Clinical correlation is essential. Performed By: #### L 501.080 #### [facility] [address] [place], [address] ECRCL 32.31 ml/min Normal [facility] Comment on above: Order Comment: 'TROP ' Serial specimen #1, #2 or #3: 1 Performed By: #### L 501.080 #### [facility] [address] [place], [address] EST GFR - AA 40 mL/min Low >60 [facility] Comment on above: Order Comment: 'TROP ' Serial specimen #1, #2 or #3: 1 Result Comment: Afri can [place] GFR Calc Performed By: #### L 501.080 #### [facility] [address] [place], [address] GAP 4 Low 5-15 [facility] Comment on above: Order Comment: 'TROP ' Serial specimen #1, #2 or #3: 1 Performed By: #### L 501.080 #### [facility] [address] [place], [address] GFR/1.73 sq M.predicted among non-blacks MDRD (S/P/Bld) [Vol rate/Area] 33 mL/min/{1.73_m2} Low >60 [facility] Comment on above: Order Comment: 'TROP ' Serial specimen #1, #2 or #3: 1 Result Comment: Non- GFR Calc Performed By: #### L 501.080 #### [facility] [address] [place], [address] Globulin (S) [Mass/Vol] 3.7 g/dL Normal 2.2-4.2 [facility] Comment on above: Order Comment: 'TROP ' Serial specimen #1, #2 or #3: 1 Performed By: #### L 501.080 #### [facility] [address] [place], [address] Glucose [Mass/Vol] 133 mg/dL High 74-106 [facility] Comment on above: Order Comment: 'TROP ' Serial specimen #1, #2 or #3: 1 Result Comment: Fast ing Glucose result greater than or equal to 126 mg/dL suggests DIABETES MELLITUS per A.D.A. criteria. Performed By: #### L 501.080 #### [facility] [address] [place], [address] Potassium [Moles/Vol] 4.3 mmol/L Normal 3.5-5.1 [facility] Comment on above: Order Comment: 'TROP ' Serial specimen #1, #2 or #3: 1 Performed By: #### L 501.080 #### [facility] [address] [place], [address] Sodium [Moles/Vol] 138 mmol/L Normal 136-145 [facility] Comment on above: Order Comment: 'TROP ' Serial specimen #1, #2 or #3: 1 Performed By: #### L 501.080 #### [facility] [address] [place], [address] T PROT 7.0 g/dL Normal 6.4-8.2 [facility] Comment on above: Order Comment: 'TROP ' Serial specimen #1, #2 or #3: 1 Performed By: #### L 501.080 #### [facility] [address] [place], [address] Urea nitrogen [Mass/Vol] 22 mg/dL High 7-18 [facility] Comment on above: Order Comment: 'TROP ' Serial specimen #1, #2 or #3: 1 Performed By: #### L 501.080 #### [facility] [address] [place], [address] Emergency Department Summary on 02-07-2024 Emergency Department Summary [facility] Medical Records Department [address] [place] [address] Emergency Department Summary 02/07/24 MR#: [id number] Acct: [id number] Name: CHAPARRITA BARAJAS Rep #: [id number] : 1955 68 From: Dheeraj Bloom MD PCP: Dr. Sheri Hutchins MD Status:REG ER Location: ED HPI History of Present Illness Chief Complaint: Weakness Narrative Narrative: 68-year-old female past medical history of hypertension, takes carvedilol twice a day and lisinopril once a day presents with lightheadedness, low blood pressure, and left posterior shoulder pain that she experienced today. She took her morning medications, she states she has been cleaning recently and using her left arm a lot. She felt lightheaded and took her blood pressure and noticed that it was in the 80s. She was sent in by the nurse hotline because of the lightheadedness and hypotension. Of note, she relates history that 2 weeks ago she had the flu and for 3 days had multiple episodes of nausea, vomiting, and diarrhea which is resolved. She denies any recent dysuria or hematuria, no fevers or chills, no cough. She has pain in her left posterior left shoulder when she moves her arm. [facility] Home Medications ???Medication ???Instructions ???Recorded ???Last Taken ???Type aspirin 81 mg tablet,delayed 325 mg PO DAILY@0800 04/18/14 Unknown History release atenolol 50 mg tablet 50 mg PO DAILY 04/18/14 01/02/16 07:15 History calcium 600 mg-D3 800 unit-mag 40 1 ea PO DAILY 04/18/14 Unknown History zq-bkhp-naok-zuly-belle martin chew tablet (Caltrate 600-D Plus Minerals) lisinopril 5 mg tablet 5 mg PO DAILY 04/18/14 01/02/16 07:15 History oxycodone 15 mg tablet,crush 15 mg PO Q4H PRN Pain 04/18/14 01/02/16 07:15 History resistant,extended release 12 hr (OxyContin) simvastatin 20 mg tablet 20 mg PO QHS 04/18/14 Unknown History venlafaxine 75 mg tablet 75 mg PO BID 04/18/14 Unknown History Equate Sleep Aid 50 mg PO QHS PRN PRN Sleep 12/17/15 Unknown History Morphine [Morphine Ir] 30 mg PO TID 12/17/15 01/02/16 07:15 History cephalexin 250 mg capsule (Keflex) 250 mg PO DAILY 12/17/15 Unknown History clonidine HCl 0.2 mg tablet 0.2 mg PO DAILY 12/17/15 01/02/16 07:15 History cranberry extract 200 mg capsule 150 mg PO DAILY 12/17/15 Unknown History krill 1 ea PO DAILY 12/17/15 Unknown History epa-xq-8-dha-epa-mandeep spholipids 300 mg-90 mg-24 mg-50 mg capsule (krill oil) multivitamin with folic acid 400 1 tab PO DAILY 12/17/15 Unknown History mcg tablet (Thera) pantoprazole 40 mg tablet,delayed 40 mg PO DAILY 12/17/15 01/02/16 07:15 History release cephalexin 500 mg capsule 500 mg PO Q6 ##40 01/15/16 Unknown Rx cephalexin 500 mg capsule 500 mg PO Q6 7 days #28 CAPSULES 02/07/24 Unknown Rx Allergy/AdvReac Type Severity Reaction Status Date / Time codeine Allergy Other Verified 02/07/24 18:16 lorazepam (From Ativan) Allergy Unknown Verified 02/07/24 18:16 amoxicillin (Amoxicillin) AdvReac Nausea Verified 02/07/24 18:16 etodolac (From Lodine) AdvReac Diarrhea Verified 02/07/24 18:16 fluticasone propionate (From AdvReac Other Verified 02/07/24 18:16 Flovent Diskus) lansoprazole (From Prevacid) AdvReac Unknown Verified 02/07/24 18:16 lubiprostone AdvReac Nausea Verified 02/07/24 18:16 misoprostol (From Cytotec) AdvReac Diarrhea Verified 02/07/24 18:16 nitrofurantoin (From AdvReac Nausea Verified 02/07/24 18:16 Macrobid) nitrofurantoin AdvReac Nausea Verified 02/07/24 18:16 macrocrystalline (From Macrobid) topiramate (From Topamax) AdvReac Nausea Verified 02/07/24 18:16 Social History Smoking Status: Never smoker ROS ROS ED ROS Narrative Constitutional: No fever, no chills. HEENT: No sore throat. No neck pain. No loss of vision. No rhinorrhea. Cardiovascular: No chest pain. No palpitations. No pedal edema. Respiratory: No cough, no shortness of breath. Abdominal: No abdominal pain. No nausea. No vomiting. Genitourinary: No dysuria. No hematuria. Musculoskeletal: No myalgias. Left posterior shoulder pain. Neurologic: No headaches. No dizziness. Positive lightheadedness. Skin: No rash. No change in color. Psychiatric: No depression. No anxiety. EXAM Physical Exam Narrative Exam Narrative: Afebrile. Vital signs noted. HEENT: Normocephalic. Atraumatic. PERRL, EOMI. Neck soft and supple. No point tenderness or step off. Cardiovascular: Regular rate and rhythm. No murmurs, rubs, or gallops appreciated. Respiratory: No tachypnea. Lungs clear to auscultation bilaterally. Gastrointestinal: Abdomen soft, nontender, with normoactive bowel sounds. No rebound or guarding. Neurological: Awake. Alert. Nonfocal, nonlateralizing. Skin: No rash. Normal color. No pallor. Musculoskeletal: No (more content not included)... Normal [facility] L501.4020on 02-07-2024 TROPONIN-I HS 7 pg/mL Normal 3.0-54.0 [facility] Comment on above: Order Comment: 'TROP ' Serial specimen #1, #2 or #3: 1 Result Comment: Debra das Note: New Test Units and Gender Specific Reference Ranges. For more information see Policy Stat Procedure [place] High Sensitivity Troponin (TNIH) and attachments. Performed By: #### L 501.080 #### [facility] [address] [place], [address] Urinalysis, Completeon 02-06 EPI,SQUAMOUS 25-50 SEEN Normal 5-10 [facility] Comment on above: Order Comment: CLEAN CATCH Performed By: #### L 100.0100, L500.4050 #### [facility] [address] [place], [address] BACTERIA 3+ /hpf Normal None Seen [facility] Comment on above: Order Comment: CLEAN CATCH Performed By: #### L 100.0100, L500.4050 #### [facility] [address] [place], [address] WBC >100 SEEN Normal 0-5 [facility] Comment on above: Order Comment: CLEAN CATCH Performed By: #### L 100.0100, L500.4050 #### [facility] [address] [place], [address] YEAST 1+ /hpf Normal None Seen [facility] Comment on above: Order Comment: CLEAN CATCH Performed By: #### L 100.0100, L500.4050 #### [facility] [address] [place], [address] BILIRUBIN URINE Negative Normal Negative [facility] Comment on above: Order Comment: CLEAN CATCH Performed By: #### L 100.0100, L500.4050 #### [facility] [address] [place], [address] Clarity (U) Cloudy Normal Clear [facility] Comment on above: Order Comment: CLEAN CATCH Performed By: #### L 100.0100, L500.4050 #### [facility] [address] [place], [address] Color (U) Yellow Normal Yellow [facility] Comment on above: Order Comment: CLEAN CATCH Performed By: #### L 100.0100, L500.4050 #### [facility] [address] [place], [address] GLUCOSE, UR Normal Normal Normal [facility] Comment on above: Order Comment: CLEAN CATCH Performed By: #### L 100.0100, L500.4050 #### [facility] [address] [place], [address] KETONE UR Negative Normal Negative [facility] Comment on above: Order Comment: CLEAN CATCH Performed By: #### L 100.0100, L500.4050 #### [facility] [address] [place], [address] LEUK ESTERASE 500 /ul Abnormal Negative [facility] Comment on above: Order Comment: CLEAN CATCH Performed By: #### L 100.0100, L500.4050 #### [facility] [address] [place], [address] Nitrite Ql (U) Negative Normal Negative [facility] Comment on above: Order Comment: CLEAN CATCH Performed By: #### L 100.0100, L500.4050 #### [facility] [address] [place], [address] OCCULT BLOOD-UR 10 /ul Abnormal Negative [facility] Comment on above: Order Comment: CLEAN CATCH Performed By: #### L 100.0100, L500.4050 #### [facility] [address] [place], [address] pH UR 6.0 Normal 5.0 - 8.0 [facility] Comment on above: Order Comment: CLEAN CATCH Performed By: #### L 100.0100, L500.4050 #### [facility] [address] [place], [address] PROT DIPSTX 30 mg/dl Abnormal Negative [facility] Comment on above: Order Comment: CLEAN CATCH Performed By: #### L 100.0100, L500.4050 #### [facility] [address] [place], [address] SP.GR. DIPSTX 1.015 Normal 1.002-1.030 [facility] Comment on above: Order Comment: CLEAN CATCH Performed By: #### L 100.0100, L500.4050 #### [facility] [address] [place], [address] UROBILI Normal Normal Normal [facility] Comment on above: Order Comment: CLEAN CATCH Performed By: #### L 100.0100, L500.4050 #### [facility] [address] [place], [address] Mucus Ql (Urine sed) 0 SEEN Normal [facility] Comment on above: Order Comment: CLEAN CATCH Performed By: #### L 100.0100, L500.4050 #### [facility] [address] [place], [address] RBC 0 SEEN Normal 0-5 [facility] Comment on above: Order Comment: CLEAN CATCH Performed By: #### L 100.0100, L500.4050 #### [facility] [address] [place], [address] CNPNon 01-18-2024 CNPN Telephone (INTMWS) CHAPARRITA BARAJAS ([id number]) 1955 F Date Time Provider Department 01/18/24 SHERI HUTCHINS INTWS During your visit today, we recorded the following information about you: Ida Cordon RN 01/18/2024 2:03 PM Signed [facility] calling regarding patient's script for venlafaxine received on 11/19/23, ordered by Dr. Hutchins. Pharmacist states patient has been getting the XR in the past, and asking if provider wishes to change this script to the XR? Please advise. Thank you. Sheri Hutchins MD 01/19/2024 9:16 AM Signed Our records show she has been prescribed the nonXR since 2005. Have they been dispensing XR version all these years? Ida Cordon RN 01/19/2024 9:34 AM Signed This nurse contacted [facility] [facility]. Pharmacist Laurita states patient was supplied the XR capsules for November, December and January in error. Pt was to get non-XR tablets. Please advise pharmacy if they should continue to distribute XR capsules (need new Rx then) or distribute the non-XR tablets? Thank you. Sheri Hutchins MD 01/21/2024 3:24 PM Signed Check with patient how she is doing now and whether prefers XR and let pharmacy know to dispense what patient wants Silvia PowellLEONOR 01/23/2024 9:57 AM Signed Called pt to review. She reports she does notice a difference and she feels better with the venlafaxine XR. 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 Do you want to send a new prescription? Sheri Hutchins MD 01/23/2024 1:52 PM Signed Sent RX with note to pharmacy that will let patient know she may take both pills once daily so if tolerates that, can send for Effexor XR 150mg once daily. Let me patient know she can try taking 2 pills once daily but if prefers to stay on 1 twice daily, that is fine too. The following approved medication requests have been transmitted electronically. Requested Prescriptions Signed Prescriptions Disp Refills venlafaxine ER (EFFEXOR XR) 75 mg 24 hr capsule 60 capsule 11 Sig: Take 1 capsule by mouth two times a day. Authorizing Provider: SHERI HUTCHINS MD Sturdivant, Deborah [facility] 01/25/2024 10:45 AM Signed Patient notified of providers message and verbalized understanding. Patient has been and prefers taking medication venlafaxine ER (EFFEXOR XR) 75 mg. However, she states she has the flu right now and hasn't taken any medications for 3 days. Patient states she has nausea/vomiting for the past few days and has not been able to hold anything down. Please advise Sheri Hutchins MD 01/25/2024 7:12 PM Signed The following approved medication requests have been transmitted electronically. Requested Prescriptions Signed Prescriptions Disp Refills venlafaxine ER (EFFEXOR XR) 75 mg 24 hr capsule 60 capsule 11 Sig: Take 1 capsule by mouth two times a day. Authorizing Provider: SHERI HUTCHINS ondansetron (ZOFRAN) 8 mg tablet 5 tablet 0 Sig: Take 1 tablet by mouth every 8 hours as needed for nausea/vomiting. 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 Follow up as needed Chaparrita Saravia LPN 01/26/2024 10:34 AM Signed Patient notified of providers message and verbalized understanding. Allergies As of Date: 01/18/2024 Noted Allergy Reaction ADHESIVE 12/17/2012 2 - Rash Comments: Bandaids- swelling, rash AMOXICILLIN 03/05/2005 8 - GI Upset ATIVAN (LORAZEPAM) 01/08/2005 5 - Intolerance CODEINE 03/05/2005 CYTOTEC (MISOPROSTOL) 03/26/2005 6 - Diarrhea FLOVENT (FLUTICASONE PROPIONATE) 07/24/2008 Comments: Severe headaches. LODINE (ETODOLAC) 03/26/2005 5 - Intolerance LUBIPROSTONE 11/06/2011 8 - GI Upset MACROBID (NITROFURANTOIN MONOHYD/*05/30/2005 Comments: nausea. 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 Continue same Order(s):venlafaxine ER (EFFEXOR XR) 75 mg 24 hr capsuleTake 1 capsule by mouth two times a day.Disp: 60 capsuleRfl: 11 ondansetron (ZOFRAN) 8 mg tabletTake 1 tablet by mouth every 8 hours as needed for nausea/vomiting.Disp : 5 tabletRfl: 0 Prescriptions as of 01/26/2024 - ondansetron (ZOFRAN) 8 mg tablet Take 1 tablet by mouth every 8 hours as needed for nausea/vomiting. - venlafaxine ER (EFFEXOR XR) 75 mg 24 hr capsule Take 1 capsule by mouth two times a day. - lisinopril (ZESTRIL) 20 mg tablet Take 1 tablet by mouth once daily. - carvedilol (COREG) 1 (more content not included)... Normal [facility] ALBUMIN/CREATININE RATIO, UR INEon 12-26-2023 Albumin DL <= 20 mg/L (U) [Mass/Vol] mg/L mg/L [facility] Albumin/Creatinine (U) [Mass ratio] mg/g NINF - 30 mg/g [facility] Comment on above: Adult Male and Femal e Nephrotic Criteria: <30 mg/g is considered normal to mildly increased 30-300 mg/g is considered moderately increased >300 mg/g is considered severely increased KDIGO. (2013). KDIGO 2012 Clinical Practice Guideline for the Evaluation and Management of Chronic Kidney Disease. Official Journal of the International Society of Nephrology, 3(1), 1-150. Creatinine (U) [Mass/Vol] 125.7 mg/dL 20.0 - 300.0 mg/dL [facility] ALBUMIN/CREATININE RATIO, UR INEon 12-25-2023 Albumin DL <= 20 mg/L (U) [Mass/Vol] mg/dL Normal [facility] Comment on above: Order Comment: Speci men Type: URINE SPECIMENOrdering Facility: [facility] Address: [address] [place] [address] Performed By: #### U ACR ####[facility] LABCLIA [id number] [address] [place] OF [facility] Albumin/Creatinine (U) [Mass ratio] <10 Normal <30 [facility] Comment on above: Order Comment: Speci men Type: URINE SPECIMENOrdering Facility: [facility] Address: [address] [place] [address] Result Comment: Adul t Male and Female Nephrotic Criteria: <30 mg/g is considered normal to mildly increased 30-300 mg/g is considered moderately increased >300 mg/g is considered severely increased KDIGO. (2013). KDIGO 2012 Clinical Practice Guideline for the Evaluation and Management of Chronic Kidney Disease. Official Journal of the International Society of Nephrology, 3(1), 1-150. Performed By: #### U ACR ####[facility] LABCLIA [id number] [place] [id number] [place] Creatinine (U) [Mass/Vol] 125.7 mg/dL Normal 20.0-300.0 [facility] Comment on above: Order Comment: Speci men Type: URINE SPECIMENOrdering Facility: [facility] Address: [address] [place] [address] Performed By: #### U ACR ####[facility] [id number] [place] [id number] [place] CBC panel Auto (Bld)on 12-24 Erythrocyte distribution width (RBC) [Ratio] 12.6 % 11.5 - 15.0 % [facility] Hematocrit (Bld) [Volume fraction] 42.5 % 36.0 - 46.0 % [facility] Hemoglobin (Bld) [Mass/Vol] 13.9 g/dL 11.5 - 15.5 g/dL [facility] Interpretation and review of laboratory results Normal [facility] MCH (RBC) [Entitic mass] 29.9 pg 26.0 - 34.0 pg [facility] MCHC (RBC) [Mass/Vol] 32.7 g/dL 30.5 - 36.0 g/dL [facility] MCV (RBC) [Entitic vol] 91.4 fL 80.0 - 100.0 fL [facility] Nucleated RBC (Bld) [#/Vol] NINF [facility] Platelet mean volume (Bld) [Entitic vol] 9.6 fL 9.0 - 12.7 fL [facility] Platelets (Bld) [#/Vol] 300 10*3/uL [facility] RBC (Bld) [#/Vol] 4.65 10*6/uL 3.90 - 5.2 0 m/uL [facility] WBC (Bld) [#/Vol] 10.79 10*3/uL [facility] Erythrocyte distribution width (RBC) [Ratio] 12.6 % Normal 11.5-15.0 [facility] Comment on above: Order Comment: Speci men Type: BLOOD SPECIMENOrdering Facility: [facility] Address: [address] [place] [address] Performed By: #### 5 8410-2 ####[facility] MILLTOWNCLIA [id number] [place] [address] [place] Hematocrit (Bld) [Volume fraction] 42.5 % Normal 36.0-46.0 [facility] Comment on above: Order Comment: Speci men Type: BLOOD SPECIMENOrdering Facility: [facility] Address: [address] [place] [address] Performed By: #### 5 8410-2 ####[facility]ITAL[facility]ULL[facility] [id number] [place] [address] [place] Hemoglobin (Bld) [Mass/Vol] 13.9 g/dL Normal 11.5-15.5 [facility] Comment on above: Order Comment: Speci men Type: BLOOD SPECIMENOrdering Facility: [facility] Address: [address] [place] [address] Performed By: #### 5 8410-2 ####[facility]ITALNCLIA [id number] [place] [address] [place] MCH (RBC) [Entitic mass] 29.9 pg Normal 26.0-34.0 [facility] Comment on above: Order Comment: Speci men Type: BLOOD SPECIMENOrdering Facility: [facility] Address: [address] [place] [address] Performed By: #### 5 8410-2 ####[facility] MILLCHATTANOOGANCLIA [id number] [place] [address] [place] MCHC (RBC) [Mass/Vol] 32.7 g/dL Normal 30.5-36.0 [facility] [place] Comment on above: Order Comment: Speci men Type: BLOOD SPECIMENOrdering Facility: [facility] Address: [address] [place] [address] Performed By: #### 5 8410-2 ####[facility] MILLCHATTANOOGANCLIA [id number] [place] [address] [place] MCV (RBC) [Entitic vol] 91.4 fL Normal 80.0-100.0 [facility] Comment on above: Order Comment: Speci men Type: BLOOD SPECIMENOrdering Facility: [facility] Address: [address] [place] [address] Performed By: #### 5 8410-2 ####[facility] [id number] [place] [address] [place] Nucleated RBC (Bld) [#/Vol] 10*3/uL Normal <0.01 [facility] Comment on above: Order Comment: Speci men Type: BLOOD SPECIMENOrdering Facility: [facility] Address: [address] [place] [address] Performed By: #### 5 8410-2 ####[facility] [id number] [place] [address] [place] Platelet mean volume (Bld) [Entitic vol] 9.6 fL Normal 9.0-12.7 [facility] Comment on above: Order Comment: Speci men Type: BLOOD SPECIMENOrdering Facility: [facility] Address: [address] [place] [address] Performed By: #### 5 8410-2 ####[facility]ITALAZULUINTA[facility] [id number] [place] [address] [place] Platelets (Bld) [#/Vol] 300 10*3/uL Normal 150-400 [facility] Comment on above: Order Comment: Speci men Type: BLOOD SPECIMENOrdering Facility: [facility] Address: [address] [place] [address] Performed By: #### 5 8410-2 ####[facility]ITALNCLIA [id number] [place] [address] [place] RBC (Bld) [#/Vol] 4.65 10*6/uL Normal 3.90-5.20 [facility] Comment on above: Order Comment: Speci men Type: BLOOD SPECIMENOrdering Facility: [facility] Address: [address] [place] [address] Performed By: #### 5 8410-2 ####[facility]ITALNCLIA [id number] [address] OF [facility] WBC (Bld) [#/Vol] 10.79 10*3/uL Normal 3.70-11.00 [facility] Comment on above: Order Comment: Speci men Type: BLOOD SPECIMENOrdering Facility: [facility] Address: [address] [place] [address] Performed By: #### 5 8410-2 ####[facility]ITALNCUIN[facility] [id number] [place] [address] [place] Comprehensive metabolic 2000 panelon 12-25-2023 Albumin [Mass/Vol] 4.0 g/dL 3.9 - 4.9 g/dL [facility] ALP [Catalytic activity/Vol] 95 U/L 34 - 123 U/L [facility] ALT [Catalytic activity/Vol] 12 U/L 7 - 38 U/L [facility] Anion gap [Moles/Vol] 11 mmol/L 8 - 15 mmol/L [facility] AST [Catalytic activity/Vol] 16 U/L 13 - 35 U/L [facility] Bilirubin [Mass/Vol] 0.7 mg/dL 0.2 - 1 .3 mg/dL [facility] Calcium [Mass/Vol] 9.8 mg/dL 8.5 - 10. 2 mg/dL [facility] Chloride [Moles/Vol] 100 mmol/L 98 - 10 7 mmol/L [facility] CO2 [Moles/Vol] 26 mmol/L 22 - 30 mmol/L [facility] Creatinine [Mass/Vol] 1.06 mg/dL High 0.58 - 0.96 mg/dL [facility] GFR/1.73 sq M.predicted among non-blacks MDRD (S/P/Bld) [Vol rate/Area] 57 mL/min/{1.73_m2} Low - PINF [facility] Comment on above: Estimated Glomerular Filtration Rate (eGFR) is calculated using the 2020 CKD-EPI creatinine equation. This equation utilizes serum creatinine, sex, and age as parameters. The creatinine assay has traceable calibration to isotope dilution-mass spectrometry. Refer to KDIGO guidelines for clinical interpretation. In patients with unstable renal function, e.g. those with acute kidney injury, the eGFR may not accurately reflect actual GFR. Glucose [Mass/Vol] 124 mg/dL High 74 - 99 mg/dL [facility] Comment on above: The [place] Diabete s Association (ADA) provides guidance for cutoff values for fasting glucose and random glucose. The ADA defines fasting as no caloric intake for at least 8 hours. Fasting plasma glucose results between 100 to 125 mg/dL indicate increased risk for diabetes (prediabetes). Fasting plasma glucose results greater than or equal to 126 mg/dL meet the criteria for diagnosis of diabetes. In the absence of unequivocal hyperglycemia, results should be confirmed by repeat testing. In a patient with classic symptoms of hyperglycemia or hyperglycemic crisis, random plasma glucose results greater than or equal to 200 mg/dL meet the criteria for diagnosis of diabetes. Reference: Standards of Medical Care in Diabetes 2016, [place] Diabetes Association. Diabetes Care. 2016.39(Suppl 1). Interpretation and review of laboratory results Abnormal [facility] Potassium [Moles/Vol] 4.8 mmol/L 3.7 - 5.1 mmol/L [facility] Protein [Mass/Vol] 7.0 g/dL 6.3 - 8.0 g/dL [facility] Sodium [Moles/Vol] 137 mmol/L 136 - 144 mmol/L [facility] Urea nitrogen [Mass/Vol] 14 mg/dL 7 - 21 mg/dL [facility] Albumin [Mass/Vol] 4.0 g/dL Normal 3.9-4.9 [facility] Comment on above: Order Comment: Speci men Type: BLOOD SPECIMENOrdering Facility: [facility] Address: [address] [place] [address] Performed By: #### 2 4323-8, 20001-1 ####[facility] [id number] [place] [address] [place] ALP [Catalytic activity/Vol] 95 U/L Normal 34-123 [facility] Comment on above: Order Comment: Speci men Type: BLOOD SPECIMENOrdering Facility: [facility] Address: [address] [place] [address] Performed By: #### 2 4323-8, ####[facility] MILLTOWNCLIA [id number] [place] [address] [place] ALT [Catalytic activity/Vol] 12 U/L Normal 7-38 [facility] Comment on above: Order Comment: Speci men Type: BLOOD SPECIMENOrdering Facility: [facility] Address: [address] [place] [address] Performed By: #### 2 4323-8, ####[facility]PITALWNCLIA [id number] [place] [address] [place] Anion gap [Moles/Vol] 11 mmol/L Normal 8-15 [facility] Comment on above: Order Comment: Speci men Type: BLOOD SPECIMENOrdering Facility: [facility] Address: [address] [place] [address] Performed By: #### 2 4323-8, ####[facility]ITALAZULLIA [id number] [place] [address] [place] AST [Catalytic activity/Vol] 16 U/L Normal 13-35 [facility] Comment on above: Order Comment: Speci men Type: BLOOD SPECIMENOrdering Facility: [facility] Address: [address] [place], [place] [address] Performed By: #### 2 4323-8, ####[facility]ITALNCLIA [id number] [place] [address] [place] Bilirubin [Mass/Vol] 0.7 mg/dL Normal 0.2-1.3 [facility] Comment on above: Order Comment: Speci men Type: BLOOD SPECIMENOrdering Facility: [facility] Address: [address] [place], [place] [address] Performed By: #### 2 4323-8, ####[facility] JUNIORRUIZ [id number] [place] [address] [place] Calcium [Mass/Vol] 9.8 mg/dL Normal 8.5-10.2 [facility] Comment on above: Order Comment: Speci men Type: BLOOD SPECIMENOrdering Facility: [facility] Address: [address] [place] [address] Performed By: #### 2 4323-8, ####[facility] VERNONRUIZ [id number] [place] [address] [place] Chloride [Moles/Vol] 100 mmol/L Normal 98-107 [facility] Comment on above: Order Comment: Speci men Type: BLOOD SPECIMENOrdering Facility: [facility] Address: [address] [place] [address] Performed By: #### 2 4323-8, ####[facility] VERNONHIPOLITOA [id number] [place] [address] [place] CO2 [Moles/Vol] 26 mmol/L Normal 22-30 [facility] Comment on above: Order Comment: Speci men Type: BLOOD SPECIMENOrdering Facility: [facility] Address: [address] [place], [place] [address] Performed By: #### 2 4323-8, ####[facility] VERNONGEORGIANANCLIA [id number] [place] [address] [place] Creatinine [Mass/Vol] 1.06 mg/dL High 0.58-0.96 [facility] [place] Comment on above: Order Comment: Speci men Type: BLOOD SPECIMENOrdering Facility: [facility] Address: [address] [place], [place] [address] Performed By: #### 2 4323-8, 96022-3 ####[facility] [id number] [place] [address] [place] Creatinine and Glomerular filtration rate.predicted panel (S/P/Bld) 57 mL/min/1.73m??? Low >=60 [facility] Comment on above: Order Comment: Bhanu valente Type: BLOOD SPECIMENOrdering Facility: [facility] Address: [address] [place] [address] Result Comment: Susie mated Glomerular Filtration Rate (eGFR) is calculated using the 2020 CKD-EPI creatinine equation. This equation utilizes serum creatinine, sex, and age as parameters. The creatinine assay has traceable calibration to isotope dilution-mass spectrometry. Refer to KDIGO guidelines for clinical interpretation. In patients with unstable renal function, e.g. those with acute kidney injury, the eGFR may not accurately reflect actual GFR. Performed By: #### 2 4323-8, ####[facility] [id number] [place] [address] [place] Glucose [Mass/Vol] 124 mg/dL High 74-99 [facility] Comment on above: Order Comment: Bhanu valente Type: BLOOD SPECIMENOrdering Facility: [facility] Address: [address] [place] [address] Result Comment: The [place] Diabetes Association (ADA) provides guidance for cutoff values for fasting glucose and random glucose. The ADA defines fasting as no caloric intake for at least 8 hours. Fasting plasma glucose results between 100 to 125 mg/dL indicate increased risk for diabetes (prediabetes). Fasting plasma glucose results greater than or equal to 126 mg/dL meet the criteria for diagnosis of diabetes. In the absence of unequivocal hyperglycemia, results should be confirmed by repeat testing. In a patient with classic symptoms of hyperglycemia or hyperglycemic crisis, random plasma glucose results greater than or equal to 200 mg/dL meet the criteria for diagnosis of diabetes. Reference: Standards of Medical Care in Diabetes 2016, [place] Diabetes Association. Diabetes Care. 2016.39(Suppl 1). Performed By: #### 2 4323-8, ####[facility] MILLTOWNCLIA [id number] [place] [address] [place] Potassium [Moles/Vol] 4.8 mmol/L Normal 3.7-5.1 [facility] Comment on above: Order Comment: Speci men Type: BLOOD SPECIMENOrdering Facility: [facility] Address: [address] [place] [address] Performed By: #### 2 432-8, ####[facility] MILLTOWNCLIA [id number] [place] [address] [place] Protein [Mass/Vol] 7.0 g/dL Normal 6.3-8.0 [facility] Comment on above: Order Comment: Speci men Type: BLOOD SPECIMENOrdering Facility: [facility] Address: [address] [place] [address] Performed By: #### 2 432-8, ####[facility] MILLTOWNCLIA [id number] [place] [address] [place] Sodium [Moles/Vol] 137 mmol/L Normal 136-144 [facility] Comment on above: Order Comment: Speci men Type: BLOOD SPECIMENOrdering Facility: [facility] Address: [address] [place] [address] Performed By: #### 2 4323-8, ####[facility] MILLTOWNCLIA [id number] [place] [address] [place] Urea nitrogen [Mass/Vol] 14 mg/dL Normal 7-21 [facility] Comment on above: Order Comment: Speci men Type: BLOOD SPECIMENOrdering Facility: [facility] Address: [address] [place] [address] Performed By: #### 2 4323-8, ####[facility] MILLTOWNCLIA [id number] [place] [address] [place] HbA1c (Bld)on 12-25-2023 Average glucose Estimated from glycated hemoglobin (Bld) [Mass/Vol] 134 mg/dL [facility] Comment on above: eAG: (Estimated aver age glucose) is a calculated value from HgbA1c and is exhibit display representative of the average blood glucose level in the last 2-3 month period. HbA1c (Bld) [Mass fraction] 6.3 % High 4.3 - 5.6 % [facility] Comment on above: [place] Diabetes As sociation guidelines indicate that patients with HgbA1c in the range 5.7-6.4% are at increased risk for development of diabetes, and intervention by lifestyle modification may be beneficial. HgbA1c greater or equal to 6.5% is considered diagnostic of diabetes. Interpretation and review of laboratory results Abnormal [facility] Average glucose Estimated from glycated hemoglobin (Bld) [Mass/Vol] 134 mg/dL Normal [facility] Comment on above: Order Comment: Bhanu valente Type: BLOOD SPECIMENOrdering Facility: [facility] Address: [address] [place] [address] Result Comment: eAG: (Estimated average glucose) is a calculated value from HgbA1c and is exhibit display representative of the average blood glucose level in the last 2-3 month period. Performed By: #### 5 5454-3 ####[facility] LABCLIA [id number] [place] [address] [place] HbA1c (Bld) [Mass fraction] 6.3 % High 4.3-5.6 [facility] Comment on above: Order Comment: Bhanu valente Type: BLOOD SPECIMENOrdering Facility: [facility] Address: [address] [place] [address] Result Comment: [place] Diabetes Association guidelines indicate that patients with HgbA1c in the range 5.7-6.4% are at increased risk for development of diabetes, and intervention by lifestyle modification may be beneficial. HgbA1c greater or equal to 6.5% is considered diagnostic of diabetes. Performed By: #### 5 5454-3 ####[facility] LABCLIA [id number] [address] [address] [place] Lipid 1996 panelon 4 Cholesterol [Mass/Vol] 127 mg/dL NINF - 200 mg/dL [facility] Comment on above: <200 mg/dL, Desirabl e 200-239 mg/dL, Borderline high >239 mg/dL, High Cholesterol in HDL [Mass/Vol] 51 mg/dL 39 - PINF mg/dL [facility] Comment on above: 40-59 mg/dL, Accepta ble >59 mg/dL, High: Negative risk factor for coronary heart disease <40 mg/dL, Low: Positive risk factor for coronary heart disease Cholesterol in LDL [Mass/Vol] 59 mg/dL NINF - 100 mg/dL [facility] Comment on above: <100 mg/dL, Optimal 100-129 mg/dL, Near optimal/above optimal 130-159 mg/dL, Borderline high 160-189 mg/dL, High >189 mg/dL, Very high Secondary prevention optimal LDL Cholesterol levels are recommended to be < 70 mg/dL Cholesterol in LDL/Cholesterol in HDL [Mass ratio] 1.16 {ratio} NINF - 2.54 [facility] Comment on above: Reference: 1. National Cholesterol Education Program ATP III Guideline At-A-Glance Quick Desk Reference: National Heart, Lung, and Blood Bowie. National Institutes of Health. 2001: NIH Publication No. 01-3305. 2. An International Atherosclerosis Society position paper: global recommendations for the management of dyslipidemia: executive summary, Atherosclerosis. 2014: 232(2):410-413. Cholesterol in VLDL [Mass/Vol] 17 mg/dL NINF - 30 mg/dL [facility] Cholesterol non HDL [Mass/Vol] 76 mg/dL NINF - 130 mg/dL [facility] Comment on above: <130 mg/dL, Optimal 130-159 mg/dL, Near optimal/above optimal 160-189 mg/dL, Borderline high 190-219 mg/dL, High >219 mg/dL, Very high Secondary prevention optimal non HDL Cholesterol levels are recommended to be <100 mg/dL Cholesterol.total/Reva sterol in HDL [Mass ratio] 2.49 {ratio} NINF - 5.10 [facility] Fasting Time 16 hrs [facility] Triglyceride [Mass/Vol] 87 mg/dL NINF - 150 mg/dL [facility] Comment on above: <150 mg/dL, Normal 150-199 mg/dL, Borderline high 200-499 mg/dL, High >499 mg/dL, Very high [facility] Cholesterol [Mass/Vol] 127 mg/dL Normal <200 [facility] Comment on above: Order Comment: Bhanu valente Type: BLOOD SPECIMENOrdering Facility: [facility] Address: [address] [place] [address] Result Comment: <200 mg/dL, Desirable 200-239 mg/dL, Borderline high >239 mg/dL, High Performed By: #### 2 4331-1 ####[facility] LABCLIA [id number] [address] [id number] [address] [place] Cholesterol in HDL [Mass/Vol] 51 mg/dL Normal >39 [facility] Comment on above: Order Comment: Bhanu valente Type: BLOOD SPECIMENOrdering Facility: [facility] Address: [address] [place] [address] Result Comment: 40-5 9 mg/dL, Acceptable >59 mg/dL, High: Negative risk factor for coronary heart disease <40 mg/dL, Low: Positive risk factor for coronary heart disease Performed By: #### 2 4331-1 ####[facility] LABCLIA [id number] [address] [id number] [address] OF [place] Cholesterol in LDL [Mass/Vol] 59 mg/dL Normal <100 [facility] Comment on above: Order Comment: Bhanu valente Type: BLOOD SPECIMENOrdering Facility: [facility] Address: [address] [place] [address] Result Comment: <100 mg/dL, Optimal 100-129 mg/dL, Near optimal/above optimal 130-159 mg/dL, Borderline high 160-189 mg/dL, High >189 mg/dL, Very high Secondary prevention optimal LDL Cholesterol levels are recommended to be < 70 mg/dL Performed By: #### 2 4331-1 ####[facility] LABCLIA [id number] [address] [id number] [place] [address] [place] Cholesterol in LDL/Cholesterol in HDL [Mass ratio] 1.16 {ratio} Normal <2.54 [facility] Comment on above: Order Comment: Speci men Type: BLOOD SPECIMENOrdering Facility: [facility] Address: [address] [place] [address] Result Comment: [place]: 1. National Cholesterol Education Program ATP III Guideline At-A-Glance Quick Desk Reference: National Heart, Lung, and Blood Bowie. National Institutes of Health. 2001: NIH Publication No. 01-3305. 2. An International Atherosclerosis Society position paper: global recommendations for the management of dyslipidemia: executive summary, Atherosclerosis. 2014: 232(2):410-413. Performed By: #### 2 4331-1 ####[facility] LABIA [id number] [address] [id number] [place] [address] [place] Cholesterol in VLDL [Mass/Vol] 17 mg/dL Normal <30 [facility] Comment on above: Order Comment: Jerei men Type: BLOOD SPECIMENOrdering Facility: [facility] Address: [address] [place] [address] Performed By: #### 2 4331-1 ####[facility] LABIA [id number] [address] [id number] [place] [address] [place] Cholesterol non HDL [Mass/Vol] 76 mg/dL Normal <130 [facility] Comment on above: Order Comment: Speci men Type: BLOOD SPECIMENOrdering Facility: [facility] Address: [address] [place] [address] Result Comment: <130 mg/dL, Optimal 130-159 mg/dL, Near optimal/above optimal 160-189 mg/dL, Borderline high 190-219 mg/dL, High >219 mg/dL, Very high Secondary prevention optimal non HDL Cholesterol levels are recommended to be <100 mg/dL Performed By: #### 2 4331-1 ####[facility] LABCLIA [id number] [address] [id number] [place] [address] [place] Cholesterol.total/Reva sterol in HDL [Mass ratio] 2.49 {ratio} Normal <5.10 [facility] Comment on above: Order Comment: Speci men Type: BLOOD SPECIMENOrdering Facility: [facility] Address: [address] [place] [address] Performed By: #### 2 4331-1 ####[facility] LABCLIA [id number] [address] [id number] [address] [place] FASTING TIME 16 hrs Normal [facility] Comment on above: Order Comment: Speci men Type: BLOOD SPECIMENOrdering Facility: [facility] Address: [address] [place] [address] Performed By: #### 2 4331-1 ####[facility] LABCLIA [id number] [address] [id number] [place] [address] [place] Triglyceride [Mass/Vol] 87 mg/dL Normal <150 [facility] Comment on above: Order Comment: Speci men Type: BLOOD SPECIMENOrdering Facility: [facility] Address: [address] [place], [place] [address] Result Comment: <150 mg/dL, Normal 150-199 mg/dL, Borderline high 200-499 mg/dL, High >499 mg/dL, Very high Performed By: #### 2 4331-1 ####[facility] LABCLIA [id number] [address] AV[address]ED[address] [id number] [place], [place] [id number] [facility] [id number] [address] OF [place] MAGNESIUMOrdered By: Barry Currie on 12-25-2023 Magnesium [Mass/Vol] 1.9 mg/dL 1.7 - 2 .3 mg/dL [facility] Magnesium SerPl-mCncon 12-24 Magnesium [Mass/Vol] 1.9 mg/dL Normal 1.7-2.3 [facility] Comment on above: Order Comment: Speci men Type: BLOOD SPECIMENOrdering Facility: [facility] Address: [address] [place] [address] Performed By: #### 2 4323-8, 25264-0 ####[facility] [id number] [address] OF [place] Magnesium [Mass/Vol]Ordered By: Lizabeth Currie on 12-25-2023 Interpretation and review of laboratory results Normal [facility] No Panel Informationon 12-24 Jeannette Mullins RPFT 12/25/2023 1:08 PM RESPIRATORY THERAPY ORAL EXHALED NITRIC OXIDE SERVICE DATE: 12/25/2023 SERVICE TIME: 1:08 PM Oral Exhaled Nitric Oxide measurement: 19.0 (ppb) Normal: Adult <25 ppb, pediatric (<12 years) <20 ppb High Normal / Increased: Adult 25-50 ppb, pediatric (<12 years) 20-35 ppb Moderately raised exhaled Nitric Oxide may indicate underlying inflammation, but note that: Cold and influenza can raise exhaled Nitric Oxide and some patients have higher baseline exhaled Nitric Oxide levels than others. High: Adult >50 ppb, pediatric (<12 years) >35 ppb Indicative of ongoing eosinophilic inflammation. Symptomatic patient likely to respond to steroids. Possible causes (if already on steroids): Poor compliance, recent allergen exposure, steroid dose inadequate, and steroid resistance. Note that not all patients with high exhaled nitric oxide levels display symptoms. Oral Exhaled Nitric Oxide measurement (Previous Encounters) Test Date Oral Exhaled Nitric Oxide (ppb) 12/25/2023 19.0 NAME: SCOTTY Latham PATIENT NAME: Chaparrita Barajas DATE: December 25, 2023 TIME: 1:08 PM [facility] SPIROMETRY - BASELINE AND PO ST DILATORon 12-25-2023 JEL22-39% POST (L/S) 1.19 L/S [facility] XEY40-79% PRE (L/S) 0.89 L/S [facility] land [facility] FEV1 PRE (L) 1.80 L [facility] FEV1/FVC POST (%) 70 % [facility] FEV1/FVC PRE (%) 65 % [facility] FEV1_POST (L) 1.91 L [facility] FVC POST (L) 2.75 L [facility] FVC PRE (L) 2.77 L [facility] PEF POST (L/S) 4.16 L/S [facility] PEF PRE (L/S) 4.25 L/S [facility] [address] [id number] Test Date: 2023-12-25 Pat Name: CHAPARRITA BARAJAS Department: Room: Gender: Female Patent Counsel: : 1955 Requested By: Order Number: [id number] Reading MD: Chantelle Monaco MD Interpretive Statements 2 puffs Albuterol (180 mcg) delivered by MDI via holding chamber. HR pre = 73/min, HR post = 73/min. Current ATS/ERS acceptability and repeatability standards for spirometry met. Start of test and EOFE criteria met. IMPRESSION: Spirometry reveals a reduced FEV1/FVC with normal FEV1 and FVC values. This could reflect a normal presentation or could indicate mild obstruction. Clinical correlation recommended. The increase in FEF 25-75 post-bronchodilator reflects an improvement in the small airway obstruction. Electronically Signed On 12-25-2023 21:39:54 EDT by Chantelle Monaco MD ID: [id number] Name: CHAPARRITA BARAJAS Race: White Ht: 62.80 in Wt: 190.00 lbs Age: 68 Gender: Female : 1955 Dx: Chronic cough_ Smoking Hx: Non-smoker Doctor: SHERI HUTCHINS Test Date: 12/25/2023 Site: Tech: Harpreet Jeannette PRE-BRONCH POST-BRONCH Pre LLN Pred ULN %Pred Post %Pred %Chg SPIROMETRY FVC (L) 2.77 1.84 2.60 3.39 106 2.75 105 0 FEV1 (L) 1.80 1.42 2.04 2.62 88 1.91 94 5 FEV1/FVC 0.65 0.66 0.79 0.89 82 0.70 87 6 PEF L/s (L/sec) 4.25 3.76 5.41 7.06 78 4.16 76 -2 FEF50 (L/sec) 1.56 1.38 2.99 4.59 52 1.65 55 5 FIF50 (L/sec) 2.22 1.87 -15 FEF50/FIF50 0.71 90-100 0.88 24 FIVC (L) 2.68 2.56 -4 GDA89-10 (L/sec) 0.89 0.83 1.80 3.19 49 1.19 66 33 Time (sec) 12.03 10.04 -16 FET PEF (sec) 0.08 0.12 45 RUBY (L) 0.09 0.12 37 Vol Extrap % (%) 3 4 38 Comments: 2 puffs Albuterol (180 mcg) delivered by MDI via holding chamber. HR pre = 73/min, HR post = 73/min. Current ATS/ERS acceptability and repeatability standards for spirometry met. Start of test and EOFE criteria met. PULMONARY FUNCTION LAB [facility] XR Chest PA and Lateralon IMPRESSION: No radiographic evidence of acute cardiopulmonary abnormality. Marine Operations Coordinator: DEMAR Transcribe Date/Time: Nov 23 2023 10:14A Dictated by : FUNMILAYO OGLESBY MD This examination was interpreted and the report reviewed and electronically signed by: FUNMILAYO OGLESBY MD on Nov 23 2023 10:15AM EST DIVISION OF RADIOLOGY * * *Final Report* * * DATE OF EXAM: Nov 19 2023 3:51PM WOX 5291 - XR CHEST 2V FRONTAL/LAT / PROCEDURE REASON: Chronic cough * * * * Physician Interpretation * * * * CHEST RADIOGRAPH: PA and lateral views of the chest Exam Date/Time: 11/19/2023 3:51 PM Indication: Chronic cough Comparison: Chest x-ray 04/17/2023 RESULTS: Lines, Tubes, and Devices: None Lungs and Pleura: The lungs are clear. No pleural effusion or pneumothorax. Cardiomediastinal silhouette: The mediastinal and cardiac silhouette are normal in size and contour. Other: Bilateral shoulder arthroplasty hardware partially included in the qhoqo-fc-hzof is normally located. DIVISION OF RADIOLOGY Provider, [facility] [place] - 11/23/2023 * * *Final Report* * * DATE OF EXAM: Nov 19 2023 3:51PM WOX 5291 - XR CHEST 2V FRONTAL/LAT / PROCEDURE REASON: Chronic cough * * * * Physician Interpretation * * * * CHEST RADIOGRAPH: PA and lateral views of the chest Exam Date/Time: 11/19/2023 3:51 PM Indication: Chronic cough Comparison: Chest x-ray 04/17/2023 RESULTS: Lines, Tubes, and Devices: None Lungs and Pleura: The lungs are clear. No pleural effusion or pneumothorax. Cardiomediastinal silhouette: The mediastinal and cardiac silhouette are normal in size and contour. Other: Bilateral shoulder arthroplasty hardware partially included in the fmedz-ar-mzbx is normally located. IMPRESSION IMPRESSION: No radiographic evidence of acute cardiopulmonary abnormality. Marine Operations Coordinator: PSCB Transcribe Date/Time: Nov 23 2023 10:14A Dictated by : FUNMILAYO OGLESBY MD This examination was interpreted and the report reviewed and electronically signed by: FUNMILAYO OGLESBY MD on Nov 23 2023 10:15AM EST [facility] XR Chest PA and LateralOrder ed By: [facility] Provider on 11-23-2023 [facility] Bacteria identified Cx Nom ( U)Ordered By: Maria Isabel Hua on 07-13-2024 Interpretation and review of laboratory results Abnormal [facility] This test was developed and its performance characteristics determined by the [facility]'s [facility] [place] ([facility] It has not been cleared or approved by the FDA. [facility] is regulated under CLIA as qualified to perform high-complexity testing. This test is used for clinical purposes. It should not be regarded as investigational or for research. [facility] URINE CULTUREOrdered By: Gagan Hua on 11-21-2023 Bacteria identified Cx Nom (U) 50,000-<100,000 CFU/ml Trudy krusei (Pichia kudriavzevii) Abnormal [facility] Comment on above: No susceptibility te sting done. This fungus is intrinsically resistant to fluconazole Bacteria Ur Culton Bacteria identified Cx Nom (U) ORGANISM ID: 1 50,000-<100,000 CFU/ml Trudy krusei (Pichia kudriavzevii) No susceptibility testing done. This fungus is intrinsically resistant to fluconazole Normal [facility] Comment on above: Performed By: #### 6 30-4 ####[facility] LABCLIA [id number] [address] STATES OF [facility] CNOVon 11-19-2023 CNOV Office Visit (INTMWS) CHAPARRITA BARAJAS ([id number]) 1955 F Date Time Provider Department 11/19/23 2:00 PM SHERI HUTCHINS INTMWS During your visit today, we recorded the following information about you: Temperature Pulse Respiration Blood pressure 94.9 degrees 77/minute 14/minute 128/70 Weight Height 85.3 kg 1.575 m Sheri Hutchins MD 12/27/2023 10:13 PM Signed This note was created using NoteWriter. Subjective Chaparrita Barajas is a 68 year old female. Patient presents with: Follow Up SUBJECTIVE: Chaparrita Barajas is a 68 year old year old lady here today for 4 month follow up appointment for review of medical conditions. Last seen October 2022. Appointments canceled after that (illness, conflict, etc). Due for labs. After standing, after laying down or sitting a while, when stands up, has urinary incontinence. Wears pad. No pain or burning till the past 2 weeks. Drinking water all the time. Started drinking waster since 9AM. Ongoing cough since had bronchitis. Hard to expectorate. Reviewed had clotting work up done. Rarely needs to take second Protonix. Trouble seeing clearly with left eye despite correction with glasses. Cannot read what right eye can read. Can see shapes and colors. Can read with left eye if pulls book closer. Has had cataracts taken care of. Had been fine before without glasses. Had fall in May and hit back of head and gotten knocked out of place. No double vision. PAST MEDICAL HISTORY Diagnosis Date Acute gastritis without mention of hemorrhage Chronic airway obstruction, not elsewhere classified 08/29/2014 Depressive disorder, not elsewhere classified Dysmetabolic syndrome X 01/08/2005 Glucose intolerance low HDL Elevated LDL Obesity Esophageal reflux Esophageal reflux Generalized osteoarthrosis, unspecified site Gout Migraine without aura Mixed hyperlipidemia Myalgia and myositis, unspecified Nausea Obesity, unspecified Partially edentulous maxilla has upper denture Phlebitis and thrombophlebitis of unspecified site 01/08/2005 Hx of DVT associated w/ OCP 10/1994, rt leg fracture 1976 Takotsubo cardiomyopathy Thoracic or lumbosacral neuritis or radiculitis, unspecified Unspecified disorder of kidney and ureter Unspecified essential hypertension 01/08/2005 VT (ventricular tachycardia) (HCC) 01/09/2016 Current Outpatient Medications Medication Sig venlafaxine (EFFEXOR) 75 mg tablet Take one(1) tablet twice daily as directed. lisinopril (ZESTRIL) 20 mg tablet Take 1 tablet by mouth once daily. carvedilol (COREG) 12.5 mg tablet Take 1 tablet by mouth two times a day. metFORMIN ER (GLUCOPHAGE XR) 500 mg 24 hr tablet Take 2 tablets by mouth daily with breakfast. cephALEXin (KEFLEX) 250 mg capsule Take 1 capsule by mouth once daily. rosuvastatin (CRESTOR) 5 mg tablet Take 1 tablet by mouth once daily. pantoprazole DR (PROTONIX) 40 mg tablet Take 1 tablet by mouth once daily. blood sugar diagnostic (BLOOD GLUCOSE TEST) test strip Test blood sugar(s) one time daily. Dx: Type 2 DM - Controlled E11.9 Insulin: No albuterol HFA (PROAIR HFA) 90 mcg/actuation inhaler Inhale 2 Puffs as instructed every 6 hours as needed. benzonatate (TESSALON PERLES) 100 mg capsule Take 2 capsules by mouth three times a day as needed. ondansetron (ZOFRAN) 8 mg tablet Take 1 tablet by mouth every 8 hours as needed for nausea/vomiting. Cranberry 500 mg cap Take 1 capsule by mouth twice daily. oxyCODONE ER (OXYCONTIN) 10 mg 12 hr tablet Take 10 mg by mouth every 12 hours. morphine IR 15 mg tablet Take 15 mg by mouth twice daily. L. acidophilus-L. rhamnosus (PROBIOTIC) 15 billion cell cap Take 1 scoop by mouth once daily. therapeutic multivitamin (THERA VITAMIN) tablet Take 1 tablet by mouth once daily. Vit O-Yrpfgk-Gglsxq-Grap e 43-418-41-75-20 mg cap Take by mouth. CALCIUM CARBONATE/VITAMIN D2 (CALCIUM + VITAMIN D ORAL) Take by mouth once daily. Gummies, calcium 1000 mg and vit d 1600 IU aspirin(ADULT ASPIRIN EC LOW STRENGTH 81 MG TAB, DELAYED RELEASE) Take by mouth twice daily. No current facility-administere d medications for this visit. Review of Systems Objective BP 128/70 (BP Site: Left Arm, BP Position: Sitting, BP Cuff Size: Large Adult) Pulse 77 Temp (!) 34.9 ?C (94.9 ?F) Resp 14 Ht 157.5 cm (5' 2) Wt 85.3 kg (188 lb) SpO2 97% BMI 34.39 kg/m? Physical Exam Constitutional: Appearance: Normal appearance. HENT: Head: Normocephalic. Eyes: Conjunctiva/sclera: Conjunctivae normal. Cardiovascular: Rate and Rhythm: Normal rate and regular rhythm. Heart sounds: Normal heart sounds. Pulmonary: Effort: Pulmonary effort is normal. Breath sounds: Normal breath sounds. Musculoskeletal: Right lower leg: No edema. Left lower leg: No edema. Skin: General: Skin is warm and dry. Neurological: General: No focal defi (more content not included)... Normal [facility] UA DIP, URINE (POC)on 2023 BILIRUBIN UA (POCT) Negative Negative [facility] CLARITY UA (POCT) Clear [facility] COLOR UA (POCT) Martha [facility] GLUCOSE UA (POCT) Negative Negative mg/dL [facility] Hemoglobin Ql (U) Negative Negative [facility] Interpretation and review of laboratory results Abnormal [facility] KETONE UA (POCT) Negative Negative mg/dL [facility] LEUKOCYTES UA (POCT) Trace Abnormal Negative [facility] NITRITE UA (POCT) Negative Negative [facility] PH UA (POCT) 5.5 4.5 - 8.0 [facility] Protein Ql (U) 30 mg/dL Abnormal Negative [facility] SPECIFIC GRAVITY UA (POCT) >=1.030 1.005 - 1.030 [facility] UROBILINOGEN UA (POCT) 0.2 Bertha l E.U./dL [facility] Location:[address], [id number] [place] [address] POINT OF CARE [facility] XR CHEST 2V FRONTAL/LATon XR CHEST 2V FRONTAL/LAT * * *Final Repor t* * * DATE OF EXAM: Nov 19 2023 3:51PM WOX 5291 - XR CHEST 2V FRONTAL/LAT / PROCEDURE REASON: Chronic cough * * * * Physician Interpretation * * * * CHEST RADIOGRAPH: PA and lateral views of the chest Exam Date/Time: 11/19/2023 3:51 PM Indication: Chronic cough Comparison: Chest x-ray 04/17/2023 RESULTS: Lines, Tubes, and Devices: None Lungs and Pleura: The lungs are clear. No pleural effusion or pneumothorax. Cardiomediastinal silhouette: The mediastinal and cardiac silhouette are normal in size and contour. Other: Bilateral shoulder arthroplasty hardware partially included in the heahs-tr-zgvb is normally located. IMPRESSION: No radiographic evidence of acute cardiopulmonary abnormality. Marine Operations Coordinator: PSCRajni Transcribe Date/Time: Nov 23 2023 10:14A Dictated by : FUNMILAYO OGLESBY MD This examination was interpreted and the report reviewed and electronically signed by: FUNMILAYO OGLESBY MD on Nov 23 2023 10:15AM EST [id number] Normal [facility] XR Chest PA and Lateralon Radiology Study observation (narrative) [facility] UA DIP, URINE (POC)on 2022 BILIRUBIN UA (POCT) Negative Negative [facility] CLARITY UA (POCT) Clear [facility] COLOR UA (POCT) Yellow [facility] GLUCOSE UA (POCT) Negative Negative mg/dL [facility] Hemoglobin Ql (U) Negative Negative [facility] KETONE UA (POCT) Negative Negative mg/dL [facility] LEUKOCYTES UA (POCT) Trace Abnormal Negative [facility] NITRITE UA (POCT) Negative Negative [facility] PH UA (POCT) 5.5 4.5 - 8.0 [facility] Protein Ql (U) Negative Negative mg/dL [facility] SPECIFIC GRAVITY UA (POCT) 1.020 1.005 - 1.030 [facility] UROBILINOGEN UA (POCT) 0.2 E.U./dL Bertha l E.U./dL [facility] XR CHEST 2V FRONTAL/LATon [facility] XR Chest PA and Lateralon IMPRESSION: No acute radiographic abnormality. Marine Operations Coordinator: DEMAR Transcribe Date/Time: Apr 17 2023 3:20P Dictated by : ALEXANDREA PICKETT MD This examination was interpreted and the report reviewed and electronically signed by: ALEXANDREA PICKETT MD on Apr 17 2023 3:21PM [facility] DIVISION OF RADIOLOGY * * *Final Report* * * DATE OF EXAM: Apr 17 2023 3:17PM WOX 5291 - XR CHEST 2V FRONTAL/LAT / PROCEDURE REASON: Wheezing * * * * Physician Interpretation * * * * EXAMINATION: CHEST RADIOGRAPH (2 VIEW FRONTAL & LATERAL) CLINICAL HISTORY: Wheezing MQ: XC2_6 EXAM DATE/TIME: 04/17/2023 3:17 PM COMPARISON: 10/22/2018 RESULT: Lines, tubes, and devices: None. Lungs and pleura: No consolidation. No lung mass. No pleural effusion. No pneumothorax. Cardiomediastinal silhouette: Normal cardiomediastinal silhouette. Bones and soft tissues: Bilateral shoulder joint replacement DIVISION OF RADIOLOGY Provider, [facility] [place] - 04/17/2023 * * *Final Report* * * DATE OF EXAM: Apr 17 2023 3:17PM WOX 5291 - XR CHEST 2V FRONTAL/LAT / PROCEDURE REASON: Wheezing * * * * Physician Interpretation * * * * EXAMINATION: CHEST RADIOGRAPH (2 VIEW FRONTAL & LATERAL) CLINICAL HISTORY: Wheezing MQ: XC2_6 EXAM DATE/TIME: 04/17/2023 3:17 PM COMPARISON: 10/22/2018 RESULT: Lines, tubes, and devices: None. Lungs and pleura: No consolidation. No lung mass. No pleural effusion. No pneumothorax. Cardiomediastinal silhouette: Normal cardiomediastinal silhouette. Bones and soft tissues: Bilateral shoulder joint replacement IMPRESSION IMPRESSION: No acute radiographic abnormality. Marine Operations Coordinator: DEMAR Transcribe Date/Time: Apr 17 2023 3:20P Dictated by : ALEXANDREA PICKETT MD This examination was interpreted and the report reviewed and electronically signed by: ALEXANDREA PICKETT MD on Apr 17 2023 3:21PM EST [facility] Radiology Study observation (narrative) Juan leung [facility] XR Chest PA and LateralOrder ed By: [facility] Provider on 04-17-2023 [facility] ANES POSTPROC EVALon 023 ANES POSTPROC EVAL HNO ID: [id number] Author: Vincent Friend MD Service: Anesthesiology Author Type: Anesthesiologist Type: Anesthesia Postprocedure Evaluation Filed: 03/18/2023 10:52 AM Note Text: POST ANESTHESIA EVALUATION NOTE : 1955 Procedure Summary Date: 03/18/23 Room / Location: [facility] Endoscopy Anesthesia Start: 954 Anesthesia Stop: 1025 Procedure: COLONOSCOPY SCREENING Diagnosis: Special screening for malignant neoplasms, colon (Screening for colorectal malignant neoplasm) Scheduled Providers: Antnoy Gibson MD; Diana Garza APRN.FRENCH PROFESSOR; Vincent Friend MD Responsible Provider: Vincent Friend MD Anesthesia Type: MAC ASA Status: 3 Anesthesia Type: MAC Last Vitals Vitals Value Taken Time BP 153/77 03/18/23 1045 Temp 36.1 ?C (97 ?F) 03/18/23 1030 Pulse 51 03/18/23 1050 Resp 11 03/18/23 1050 SpO2 93 % 03/18/23 1050 Vitals shown include unvalidated device data. Post Anesthesia Patient Status Patient Evaluation: bedside. Anticipated Disposition: phase 2 then home. Neurological Status: aware and responsive. Pulmonary Status: breathing comfortably on room air Airway Control: returned to baseline unsupported. Cardiovascular Status: stable. Pain Management: clinically adequate Postoperative Hydration: acceptable. Intraoperative Events: no significant anesthesia events Post Operative Nausea/Vomiting Status: no significant post operative nausea or vomiting Recommendation: continue current plan of care. Anesthesia Observations No Documentation SIGNATURE: Vincent Friend MD PATIENT NAME: Chaparrita Barajas DATE: March 18, 2023 TIME: 10:52 AM CSN: [id number] Normal [facility] ANES PRE-OPon 03-18-2023 ANES PRE-OP HNO ID: [id number] Author: Vincent Friend MD Service: Anesthesiology Author Type: Anesthesiologist Type: Anesthesia Preprocedure Evaluation Filed: 03/18/2023 9:15 AM Note Text: ANESTHESIOLOGY DAY OF SURGERY NOTE : 1955 Procedure Information Date/Time: 03/18/23 1030 Scheduled providers: Antony Gibson MD; Diana Garza APRN.FRENCH PROFESSOR; Vincent Friend MD Procedure: COLONOSCOPY SCREENING Location: [facility] Endoscopy Estimated body mass index is 34.46 kg/m? as calculated from the following: Height as of 12/20/18: 157.5 cm (5' 2). Weight as of 11/19/22: 85.5 kg (188 lb 6.4 oz). Most recent hematocrit and potassium results: Hematocrit 43.4 10/21/2022 Potassium 4.4 10/21/2022 Relevant Problems CARDIO (+) Essential hypertension ENDO (+) Controlled type 2 diabetes mellitus without complication, without long-term current use of insulin (HCC) GI (+) Esophageal reflux NEURO-PSYCH (+) History of SD (myocardial infarction) I - PHYSICAL EVALUATION AIRWAY Patient intubated: No. Tracheostomy tube not present Mallampati: II. TM distance: >3 FB. Neck ROM: full ROM without neurological symptoms. Mouth opening: adequate. Short neck: no. Thick neck: no DENTAL Dental findings: missing tooth/teeth. Dentures, upper: complete. Additional exam findings: no II - ANESTHESIA PLAN ASA Score: 3 Anesthetic Plan: MAC The patient is not a current smoker. NPO Status: adequate Beta Ana Laura Monitoring Plan Monitoring plan: standard ASA. Post Procedure Analgesic Plan Postoperative analgesic plan: parenteral or oral opioids and multimodal analgesia. Informed Consent Anesthetic risks, benefits, alternatives, personnel and consent discussed: yes. Patient / Responsible Alliance Party agrees to proceed: yes Patient / Surrogate agrees to blood products: blood products not planned DNR status not reviewed with patient and/or family prior to surgery. Significant changes in the patient condition since the History and Physical, not otherwise documented in primary service progress note: no. Potential Anesthesia issues that may suggest increased risk of complications or contraindication to planned procedure: none. Discussed the possibility of lip / dental damage: yes Vitals Value Taken Time BP 148/68 03/18/23858 Pulse 63 03/18/23858 Resp 18 03/18/23858 Temp 36.3 ?C (97.3 ?F) 03/18/23858 SpO2 95 % 03/18/23858 Outpatient Medications as of 03/18/2023 Medication Sig - lisinopril (ZESTRIL) 20 mg tablet Take 1 tablet by mouth once daily. - venlafaxine (EFFEXOR) 75 mg tablet Take one(1) tablet twice daily as directed. - carvedilol (COREG) 12.5 mg tablet Take 1 tablet by mouth twice daily. - metFORMIN ER (GLUCOPHAGE XR) 500 mg 24 hr tablet Take 2 tablets by mouth daily with breakfast. - cephALEXin (KEFLEX) 250 mg capsule Take 1 capsule by mouth once daily. - rosuvastatin (CRESTOR) 5 mg tablet Take 1 tablet by mouth once daily. - pantoprazole DR (PROTONIX) 40 mg tablet Take 1 tablet by mouth once daily. - blood sugar diagnostic (BLOOD GLUCOSE TEST) test strip Test blood sugar(s) one time daily. Dx: Type 2 DM - Controlled E11.9 Insulin: No - Cranberry 500 mg cap Take 1 capsule by mouth twice daily. - oxyCODONE ER (OXYCONTIN) 10 mg 12 hr tablet Take 10 mg by mouth every 12 hours. - morphine IR 15 mg tablet Take 15 mg by mouth twice daily. - L. acidophilus-L. rhamnosus (PROBIOTIC) 15 billion cell cap Take 1 scoop by mouth once daily. - therapeutic multivitamin (THERA VITAMIN) tablet Take 1 tablet by mouth once daily. - Vit U-Pvaopv-Xufvux-Grap e 12-589-66-75-20 mg cap Take by mouth. - CALCIUM CARBONATE/VITAMIN D2 (CALCIUM + VITAMIN D ORAL) Take by mouth once daily. Gummies, calcium 1000 mg and vit d 1600 IU - aspirin(ADULT ASPIRIN EC LOW STRENGTH 81 MG TAB, DELAYED RELEASE) Take by mouth twice daily. - carvedilol (COREG) 12.5 mg tablet Take 1 tablet by mouth twice daily. - ondansetron (ZOFRAN) 8 mg tablet Take 1 tablet by mouth every 8 hours as needed for nausea/vomiting. Facility-Administere d Medications as of 03/18/2023 Medication Dose Route Frequency - lactated ringers iv infusion 30 mL/hr INTRAVENOUS CONTINUOUS - lactated ringers iv infusion 30 mL/hr INTRAVENOUS CONTINUOUS I have interviewed and examined the patient. I have reviewed the medical record and/or the pre-anesthesia evaluation, pertinent labs, and test results. This contains updated information obtained within 48 hours of Surgery/Procedure. SIGNATURE: Vincent Friend MD PATIENT NAME: Chaparrita Barajas DATE: March 18, 2023 TIME: 9:14 AM CSN: [id number] Normal [facility] Colonoscopyon 03-18-2023 Colonoscopy [facility] Gastrointestinal Endoscopy Patient Name: Chaparrita Barajas Procedure Date: 03/18/2023 9:44 AM Date of : 1955 Admit Type: Outpatient Age: 67 Room: [facility] Gender: Female Note Status: Finalized Attending MD: Antony Gibson MD Procedure: Colonoscopy Indications: Screening for colorectal malignant neoplasm Providers: Antony Gibson MD Patient Profile: This is a 67 year old female. Refer to note in patient chart for documentation of history and physical. Last Colonoscopy: date unknown. Unable to locate last colonoscopy report. Referring Physician: Joanna Doan (pa) (Referring MD) Medicines: Monitored Anesthesia Care Complications: No immediate complications. Requesting Provider: Procedure: Pre-Anesthesia Assessment: - Prior to the procedure, a History and Physical was performed, and patient medications and allergies were reviewed. The patient is competent. The risks and benefits of the procedure and the sedation options and risks were discussed with the patient. All questions were answered and informed consent was obtained. Patient identification and proposed procedure were verified by the physician, the nurse and the clinic specialist in the procedure room. Respiratory Examination: clear to auscultation. Prophylactic Antibiotics: The patient requires prophylactic antibiotics due to a prior history of acute GI bleeding. Prior Anticoagulants: The patient has taken no anticoagulant or antiplatelet agents. ASA Grade Assessment: II - A patient with mild systemic disease. After reviewing the risks and benefits, the patient was deemed in satisfactory condition to undergo the procedure. The anesthesia plan was to use monitored anesthesia care (MAC). Immediately prior to administration of medications, the patient was re-assessed for adequacy to receive sedatives. The heart rate, respiratory rate, oxygen saturations, blood pressure, adequacy of pulmonary ventilation, and response to care were monitored throughout the procedure. The physical status of the patient was re-assessed after the procedure. After I obtained informed consent, the scope was passed under direct vision. Throughout the procedure, the patient's blood pressure, pulse, and oxygen saturations were monitored continuously. The Colonoscope was introduced through the anus and advanced to the cecum, identified by appendiceal orifice and ileocecal valve. The colonoscopy was performed without difficulty. The patient tolerated the procedure well. The quality of the bowel preparation was adequate to identify polyps. The quality of the bowel preparation was good. Scope Withdrawal Time: 0 hours 9 minutes 13 seconds Moderate Sedation: MAC anesthesia was administered by the anesthesia team. Total Procedure Duration: 0 hours 16 minutes 33 seconds Findings: The perianal and digital rectal examinations were normal. The entire examined colon appeared normal on direct and retroflexion views. Impression: - The entire examined colon is normal on direct and retroflexion views. - No specimens collected. Recommendation: - Discharge patient to home. - Resume previous diet. - Continue present medications. - Repeat colonoscopy in 10 years for screening purposes. - Patient has a contact number available for emergencies. The signs and symptoms of potential delayed complications were discussed with the patient. Return to normal activities tomorrow. Written discharge instructions were provided to the patient. Procedure Code(s): --- Professional --- 33946, Colonoscopy, flexible; diagnostic, including collection of specimen(s) by brushing or washing, when performed (separate procedure) CPT copyright 2020 [employer]. All rights reserved. The codes documented in this report are preliminary and upon senior vice president & general counsel review may be revised to meet current compliance requirements. Attending Participation: I personally performed the entire procedure. Scope In: 10:04:03 AM Scope Out: 10:20:36 AM MD Antony Casillas MD 03/18/2023 10:28:27 AM This report has been signed electronically by Antony Gibson MD Number of Addenda: 0 Note Initiated On: 03/18/2023 9:44 AM Estimated Blood Loss: Estimated blood loss: none. Normal [facility] HISTORY PHYSICALon HISTORY PHYSICAL HNO ID: [id number] Author: Antony Gibson MD Service: General Surgery Author Type: Physician Type: HANDP Filed: 03/18/2023 9:26 AM Note Text: HISTORY AND PHYSICAL Chaparrita Baker Jenn 1955 REFERRING PHYSICIAN: Sheri Hutchins MD CHIEF COMPLAINT: Consult HPI: The patient is a 67 year old female referred for endoscopy. Chaparrita notes no colon complaints. Patient denies any change in bowel habits, weight changes, blood in stools, black tarry stools or abdominal pain. Denies known family history of colon cancer. The patient notes no upper GI complaints. Chaparrita has undergone prior endoscopy. Last colonoscopy 12/22/[address] Garrido under Monitored Anesthetic Care. No concerning findings at that time. Patient denies chest pain, shortness of breath or recent hospitalizations. Denies problems with sedation in the past. PAST MEDICAL HISTORY PAST MEDICAL HISTORY Diagnosis Date Acute gastritis without mention of hemorrhage Chronic airway obstruction, not elsewhere classified 08/29/2014 Depressive disorder, not elsewhere classified Dysmetabolic syndrome X 01/08/2005 Glucose intolerance low HDL Elevated LDL Obesity Esophageal reflux Esophageal reflux Generalized osteoarthrosis, unspecified site Gout Migraine without aura Mixed hyperlipidemia Myalgia and myositis, unspecified Nausea Obesity, unspecified Partially edentulous maxilla has upper denture Phlebitis and thrombophlebitis of unspecified site 01/08/2005 Hx of DVT associated w/ OCP 10/1994, rt leg fracture 1976 Takotsubo cardiomyopathy Thoracic or lumbosacral neuritis or radiculitis, unspecified Unspecified disorder of kidney and ureter Unspecified essential hypertension 01/08/2005 VT (ventricular tachycardia) (HCC) 01/09/2016 PAST SURGICAL HISTORY PAST SURGICAL HISTORY Procedure Laterality Date APPENDECTOMY ~1978 COLONOSCOPY FLX DX W/COLLJ SPEC WHEN PFRMD 11/15/2004 Colonoscopy COLONOSCOPY FLX DX W/COLLJ SPEC WHEN PFRMD 12/22/12 Colonoscopy EGD TRANSORAL BIOPSY SINGLE/MULTIPLE 12/04/08 ESOPHAGOGASTRODUODEN OSCOPY TRANSORAL DIAGNOSTIC 12/22/12 EGD PAST SURGICAL HISTORY OF ~1999 Arthroplasty of left hip PAST SURGICAL HISTORY OF 1997 Hysterectomy and right oophorectomy PAST SURGICAL HISTORY OF 2000 Back surgery PAST SURGICAL HISTORY OF 2005 Right knee replacement PAST SURGICAL HISTORY OF DANDC PAST SURGICAL HISTORY OF left CMC arthroplasty with tendon PAST SURGICAL HISTORY OF age 1 left wrist surgery PAST SURGICAL HISTORY OF multiple injections through pain management PAST SURGICAL HISTORY OF 01/04/2019 Left TKR CURRENT MEDICATIONS Current Outpatient Medications Medication Sig venlafaxine (EFFEXOR) 75 mg tablet Take one(1) tablet twice daily as directed. metFORMIN ER (GLUCOPHAGE XR) 500 mg 24 hr tablet Take 2 tablets by mouth daily with breakfast. cephALEXin (KEFLEX) 250 mg capsule Take 1 capsule by mouth once daily. rosuvastatin (CRESTOR) 5 mg tablet Take 1 tablet by mouth once daily. pantoprazole DR (PROTONIX) 40 mg tablet Take 1 tablet by mouth once daily. lisinopril (ZESTRIL, PRINIVIL) 20 mg tablet Take 1 tablet by mouth once daily. carvedilol (COREG) 12.5 mg tablet Take 1 tablet by mouth twice daily. Cranberry 500 mg cap Take 1 capsule by mouth twice daily. oxyCODONE ER (OXYCONTIN) 10 mg 12 hr tablet Take 10 mg by mouth every 12 hours. morphine IR 15 mg tablet Take 15 mg by mouth twice daily. L. acidophilus-L. rhamnosus (PROBIOTIC) 15 billion cell cap Take 1 scoop by mouth once daily. therapeutic multivitamin (THERA VITAMIN) tablet Take 1 tablet by mouth once daily. Vit V-Mhfisn-Uizbfh-Grap e 90-860-14-75-20 mg cap Take by mouth. CALCIUM CARBONATE/VITAMIN D2 (CALCIUM + VITAMIN D ORAL) Take by mouth once daily. Gummies, calcium 1000 mg and vit d 1600 IU aspirin(ADULT ASPIRIN EC LOW STRENGTH 81 MG TAB, DELAYED RELEASE) Take by mouth twice daily. blood sugar diagnostic (BLOOD GLUCOSE TEST) test strip Test blood sugar(s) one time daily. Dx: Type 2 DM - Controlled E11.9 Insulin: No No current facility-administere d medications for this visit. ALLERGIES: Adhesive, Amoxicillin, Ativan [Lorazepam], Codeine, Cytotec [Misoprostol], Flovent [Fluticasone Propionate], Lodine [Etodolac], Lubiprostone, Macrobid [Nitrofurantoin Monohyd/M-Cryst], Prevacid [Lansoprazole], and Topamax [Topiramate] PERSONAL HISTORY: SOCIAL HISTORY Social History Tobacco Use Smoking status: Former Packs/day: 0.50 Years: 15.00 Total pack years: 7.50 Types: Cigarettes Quit date: 1993 Years since quittin.5 Smokeless tobacco: Never Vaping Use Vaping Use: Never used Substance Use Topics Alcohol use: Yes Comment: 1-2 per yr Drug use: No FAMILY HISTORY: FAMILY HISTORY FAMILY HISTORY Problem Relation Age of Onset other (kidney failure) Mother other (unknown) Father Coronary Artery Disease Maternal Grandmother Stroke Maternal Grandfather Cor (more content not included)... Normal [facility] GENEVA SCREENING W TOMOon 04-17 [facility] .Auto Diffon 05-29-2021 Basophil, Absolute 0.00 10 3/mcL Normal 0.00-0.19 [facility] ([place]) Comment on above: Performed By: #### B MP, CBC, ADIFF, ANEU #### [address] [address] #### GFR #### [address] [address] Basophils/100 WBC (Bld) 0.2 % Normal 0.0-2.5 A [facility] ([place]) Comment on above: Performed By: #### B MP, CBC, ADIFF, ANEU #### [address] [address] #### GFR #### [address] [address] Eosinophil, Absolute 0.00 10 3/mcL Normal 0.00-0.40 [facility] ([place]) Comment on above: Performed By: #### B MP, CBC, ADIFF, ANEU #### [place] [address] #### GFR #### [address] [address] Eosinophils/100 WBC (Bld) 0.0 % Normal 0.0-7.0 [facility] ([place]) Comment on above: Performed By: #### B MP, CBC, ADIFF, ANEU #### [place] [address] #### GFR #### [address] [address] Lymphocyte, Absolute 1.10 10 3/mcL Normal 0.77-3.85 [facility] ([place]) Comment on above: Performed By: #### B MP, CBC, ADIFF, ANEU #### [place] [address] #### GFR #### [address] [address] Lymphocytes/100 WBC (Bld) 7.2 % Low 10.0-50.0 [facility] ([place]) Comment on above: Performed By: #### B MP, CBC, ADIFF, ANEU #### [place] [address] #### GFR #### [address] [address] Monocyte, Absolute 0.70 10 3/mcL Normal 0.15-1.00 [facility] ([place]) Comment on above: Performed By: #### B MP, CBC, ADIFF, ANEU #### [place] [address] #### GFR #### [address] [address] Monocytes/100 WBC (Bld) 4.2 % Normal 1.7-13.0 [facility] ([place]) Comment on above: Performed By: #### B MP, CBC, ADIFF, ANEU #### [address] [address] #### GFR #### [address] [address] Neutrophils/100 WBC (Bld) 88.4 % High 37.0-80.0 [facility] ([place]) Comment on above: Performed By: #### B MP, CBC, ADIFF, ANEU #### [address] [address] #### GFR #### [address] [address] .GFRon 05-29-2021 GFR 75 ml/min/1.73sqm Normal [facility] ([place]) Comment on above: Result Comment: GFR Population mean for , Non- Americans Ages 20-29 = 116 mL/min/1.73 sq.m. Ages 30-39 = 107 mL/min/1.73 sq.m. Ages 40-49 = 99 mL/min/1.73 sq.m. Ages 50-59 = 93 mL/min/1.73 sq.m. Ages 60-69 = 85 mL/min/1.73 sq.m. Ages 70+ = 75 mL/min/1.73 sq.m. Chronic Kidney Disease: Less than 60 mL/min/1.73 square meters End Stage Renal Disease: Less than 15 mL/min/1.73 square meters Performed By: #### B MP, CBC, ADIFF, ANEU #### [address] [address] #### GFR #### [address] [address] GFR Non- 61 ml/min/1.73sqm Normal [facility] ([place]) Comment on above: Result Comment: GFR Population mean for , Non- Americans Ages 20-29 = 116 mL/min/1.73 sq.m. Ages 30-39 = 107 mL/min/1.73 sq.m. Ages 40-49 = 99 mL/min/1.73 sq.m. Ages 50-59 = 93 mL/min/1.73 sq.m. Ages 60-69 = 85 mL/min/1.73 sq.m. Ages 70+ = 75 mL/min/1.73 sq.m. Chronic Kidney Disease: Less than 60 mL/min/1.73 square meters End Stage Renal Disease: Less than 15 mL/min/1.73 square meters Performed By: #### B MP, CBC, ADIFF, ANEU #### [address] [address] #### GFR #### [address] [address] .NEUABSon 05-29-2021 Neutrophil, Absolute 13.80 10 3/mcL High 2.85-6.16 [facility] ([place]) Comment on above: Performed By: #### B MP, CBC, ADIFF, ANEU #### [address] [address] #### GFR #### [address] [address] BMPon 05-29-2021 BUN/Creatinine Ratio 12 ratio Normal 7-27 [facility] ([place]) Comment on above: Performed By: #### B MP, CBC, ADIFF, ANEU #### [address] [address] #### GFR #### [address] [address] Calcium [Mass/Vol] 8.6 mg/dL Normal 8.4-10.2 [facility] ([place]) Comment on above: Performed By: #### B MP, CBC, ADIFF, ANEU #### [address] [address] #### GFR #### [address] [address] Chloride [Moles/Vol] 107 mmol/L Normal 98-107 [facility] ([place]) Comment on above: Performed By: #### B MP, CBC, ADIFF, ANEU #### [address] [address] #### GFR #### [place] [id number] CO2 [Moles/Vol] 27 mmol/L Normal 23-31 [facility] ([place]) Comment on above: Performed By: #### B MP, CBC, ADIFF, ANEU #### [address] [address] #### GFR #### [address] [address] Creatinine [Mass/Vol] 0.91 mg/dL Normal 0.55-1.02 [facility] ([place]) Comment on above: Performed By: #### B MP, CBC, ADIFF, ANEU #### [address] [address] #### GFR #### [address] [address] Electrolyte Balance 10.0 mEq/L Normal 4.0-15.0 [facility] ([place]) Comment on above: Performed By: #### B MP, CBC, ADIFF, ANEU #### [address] [address] #### GFR #### [address] [address] Glucose [Mass/Vol] 199 mg/dL High 80-115 [facility] ([place]) Comment on above: Performed By: #### B MP, CBC, ADIFF, ANEU #### [address] [address] #### GFR #### [address] [address] Potassium [Moles/Vol] 4.0 mmol/L Normal 3.5-5.1 [facility] ([place]) Comment on above: Performed By: #### B MP, CBC, ADIFF, ANEU #### [address] [address] #### GFR #### [address] [address] Sodium [Moles/Vol] 144 mmol/L Normal 136-145 [facility] ([place]) Comment on above: Performed By: #### B MP, CBC, ADIFF, ANEU #### [address] [address] #### GFR #### [address] [address] Urea nitrogen [Mass/Vol] 11 mg/dL Normal 7-18 [facility] ([place]) Comment on above: Performed By: #### B MP, CBC, ADIFF, ANEU #### [place] [address] #### GFR #### [place] [address] CBCon 05-29-2021 Erythrocyte distribution width (RBC) [Ratio] 12.4 % Normal 11.5-14.5 [facility] ([place]) Comment on above: Performed By: #### B MP, CBC, ADIFF, ANEU #### [place] [address] #### GFR #### [place] [address] Hematocrit (Bld) [Volume fraction] 37.5 % Normal 37.0-47.0 [facility] ([place]) Comment on above: Performed By: #### B MP, CBC, ADIFF, ANEU #### [place] [address] #### GFR #### [place] [address] Hgb 12.5 G/dL Normal 12.0-16.0 [facility] ([place]) Comment on above: Performed By: #### B MP, CBC, ADIFF, ANEU #### [place] [id number] #### GFR #### [place] [address] MCH (RBC) [Entitic mass] 30.1 pg Normal 27.0-31.2 [facility] ([place]) Comment on above: Performed By: #### B MP, CBC, ADIFF, ANEU #### [place] [id number] #### GFR #### [place] [address] MCHC 33.3 G/dL Normal 33.0-37.0 [facility] ([place]) Comment on above: Performed By: #### B MP, CBC, ADIFF, ANEU #### [place] [address] #### GFR #### [place] [address] MCV (RBC) [Entitic vol] 90.5 fL Normal 80.0-94.0 A [facility] ([place]) Comment on above: Performed By: #### B MP, CBC, ADIFF, ANEU #### [place] [address] #### GFR #### [place] [address] Platelet 259 10 3/mcL Normal 130-400 [facility] ([place]) Comment on above: Performed By: #### B MP, CBC, ADIFF, ANEU #### [place] [address] #### GFR #### [place] [address] Platelet mean volume (Bld) [Entitic vol] 8.4 fL Normal 7.4-10.4 [facility] ([place]) Comment on above: Performed By: #### B MP, CBC, ADIFF, ANEU #### [place] [address] #### GFR #### [place] [address] RBC 4.15 10 6/mcL Low 4.20-5.40 [facility] ([place]) Comment on above: Performed By: #### B MP, CBC, ADIFF, ANEU #### [place] [address] #### GFR #### [place] [address] WBC 15.60 10 3/mcL High 4.60-10.80 [facility] ([place]) Comment on above: Performed By: #### B MP, CBC, ADIFF, ANEU #### [facility] [address] [place], [place] [address] #### GFR #### [facility] [address] [place] [address] LABORATORYOrdered By: Johanne Shell on 05-29-2021 Blood Glucose Testing Reason Routine (05/29/21 11:28 AM) [facility] Glucose [Mass/Vol] 142 mg/dL Invalid Interpretation Code 82 - 115 mg/dL [facility] Blood Glucose Testing Reason Routine (05/29/21 7:27 AM) [facility] Glucose [Mass/Vol] 202 mg/dL Invalid Interpretation Code 82 - 115 mg/dL [facility] LABORATORYOrdered By: Antonieta Cook on 05-29-2021 Basophil, Absolute 0.00 103/mcL Invalid Interpretation Code 0.00 - 0.19 10^3/mcL AO Auto Heme SS Basophils/100 WBC (Bld) 0.2 % Invalid Interpretation Code 0.0 - 2.5 % AO Auto Heme SS Calcium [Mass/Vol] 8.6 mg/dL Invalid Interpretation Code 8.4 - 10.2 mg/dL AO ADM SS Chloride [Moles/Vol] 107 mmol/L Invalid Interpretation Code 98 - 107 mmol/L AO ADM SS CO2 [Moles/Vol] 27 mmol/L Invalid Interpretation Code 23 - 31 mmol/L AO ADM SS Creatinine [Mass/Vol] 0.91 mg/dL Invalid Interpretation Code 0.55 - 1.02 mg/dL AO ADM SS Electrolyte Balance 10.0 mEq/L Invalid Interpretation Code 4.0 - 15.0 mEq/L AO ADM SS Eosinophil, Absolute 0.00 103/mcL Invalid Interpretation Code 0.00 - 0.40 10^3/mcL AO Auto Heme SS Eosinophils/100 WBC (Bld) 0.0 % Invalid Interpretation Code 0.0 - 7.0 % AO Auto Heme SS Erythrocyte distribution width (RBC) [Ratio] 12.4 % Invalid Interpretation Code 11.5 - 14.5 % AO Auto Heme SS Glucose [Mass/Vol] 199 mg/dL Invalid Interpretation Code 80 - 115 mg/dL AO ADM SS Hematocrit (Bld) [Volume fraction] 37.5 % Invalid Interpretation Code 37.0 - 47.0 % AO Auto Heme SS Hemoglobin (Bld) [Mass/Vol] 12.5 G/dL Invalid Interpretation Code 12.0 - 16.0 G/dL AO Auto Heme SS Lymphocyte, Absolute 1.10 103/mcL Invalid Interpretation Code 0.77 - 3.85 10^3/mcL AO Auto Heme SS Lymphocytes/100 WBC (Bld) 7.2 % Invalid Interpretation Code 10.0 - 50.0 % AO Auto Heme SS MCH (RBC) [Entitic mass] 30.1 pg Invalid Interpretation Code 27.0 - 31.2 pg AO Auto Heme SS MCHC (RBC) [Mass/Vol] 33.3 G/dL Invalid Interpretation Code 33.0 - 37.0 G/dL AO Auto Heme SS MCV (RBC) [Entitic vol] 90.5 fL Invalid Interpretation Code 80.0 - 94.0 fL AO Auto Heme SS Monocyte, Absolute 0.70 103/mcL Invalid Interpretation Code 0.15 - 1.00 10^3/mcL AO Auto Heme SS Monocytes/100 WBC (Bld) 4.2 % Invalid Interpretation Code 1.7 - 13.0 % AO Auto Heme SS Neutrophil, Absolute 13.80 103/mcL Invalid Interpretation Code 2.85 - 6.16 10^3/mcL AO Auto Heme SS Neutrophils/100 WBC (Bld) 88.4 % Invalid Interpretation Code 37.0 - 80.0 % AO Auto Heme SS Platelet mean volume (Bld) [Entitic vol] 8.4 fL Invalid Interpretation Code 7.4 - 10.4 fL AO Auto Heme SS Platelets (Bld) [#/Vol] 259 103/mcL Invalid Interpretation Code 130 - 400 10^3/mcL AO Auto Heme SS Potassium [Moles/Vol] 4.0 mmol/L Invalid Interpretation Code 3.5 - 5.1 mmol/L AO ADM SS RBC (Bld) [#/Vol] 4.15 106/mcL Invalid Interpretation Code 4.20 - 5.40 10^6/mcL AO Auto Heme SS Sodium [Moles/Vol] 144 mmol/L Invalid Interpretation Code 136 - 145 mmol/L AO ADM SS Urea nitrogen [Mass/Vol] 11 mg/dL Invalid Interpretation Code 7 - 18 mg/dL AO ADM SS Urea nitrogen/Creatinine [Mass ratio] 12 ratio Invalid Interpretation Code 7 - 27 ratio AO ADM SS WBC (Bld) [#/Vol] 15.60 103/mcL Invalid Interpretation Code 4.60 - 10.80 10^3/mcL AO Auto Heme SS LABORATORYOrdered By: SYSTEM SYSTEM on 05-29-2021 GFR 75 ml/min/1.73sqm Invalid Interpretation Code AO Chemistry S GFR Non- 61 ml/min/1.73sqm Invalid Interpretation Code AO Chemistry S Gel ABOon 05-28-2021 ABO/Rh Interp Positive Invalid Interpretation Code [facility] ([place]) Comment on above: Performed By: #### B MP, CBC, ADIFF, ANEU #### [address] [address] #### GFR #### [address] [address] Gel ABSon 05-28-2021 Antibody Screen Gel Negative Normal [facility] ([place]) Comment on above: Performed By: #### B MP, CBC, ADIFF, ANEU #### [address] [address] #### GFR #### [address] [address] LABORATORYOrdered By: Kasi Win on 05-28-2021 Blood Glucose Testing Reason Routine (05/28/21 5:10 PM) [facility] Glucose [Mass/Vol] 252 mg/dL Invalid Interpretation Code 82 - 115 mg/dL [facility] LABORATORYOrdered By: Jordin Flores on 05-28-2021 ABO/Rh Interp Positive Invalid Interpretation Code AO BB SS Antibody Screen Gel Negative ABSC (05/28/21 11:13 AM) Invalid Interpretation Code AO BB SS XR SHOULDER MINIMUM 2 VIEWS LEFTon 05-28-2021 XR SHOULDER MINIMUM 2 VIEWS LEFT ORIGINAL EXAMINATION: TWO XRAY VIEWS OF THE LEFT SHOULDER 05/28/2021 2:03 pm COMPARISON: None. HISTORY: ORDERING SYSTEM PROVIDED HISTORY: Reason for Exam: Status Post Arthroplasty FINDINGS: The patient is status post reverse left total shoulder arthroplasty. There is no evidence of hardware complication. Mild joint space narrowing noted of the acromioclavicular joint. The coracoclavicular distance is normal. The additional visualized thoracic osseous structures exhibit no acute abnormalities. Degenerative changes are present of the thoracic spine. IMPRESSION: 1. Reverse left total shoulder arthroplasty without evidence of hardware complication. Interpreted by: Mani Jasso DO Preliminary Report By: Mani Jasso DO Electronically signed By Mani Jasso DO Dictated Date: 05/28/2021 3:27:15 PM Prelim Date: 05/28/2021 3:28:37 PM Sign Date: 05/28/2021 3:28:37 PM Ordering Provider: IRENE Hall [facility] ([place]) .Auto Diffon 09-12-2020 Basophil, Absolute 0.00 10 3/mcL Normal 0.00-0.19 [facility] ([place]) Comment on above: Performed By: #### C BCJUANY ANEU, BMP #### [place] [address] #### GFR #### [address] [address] Basophils/100 WBC (Bld) 0.1 % Normal 0.0-2.5 A [facility] ([place]) Comment on above: Performed By: #### C BCJUANY ANEU, BMP #### [place] [address] #### GFR #### [address] [address] Eosinophil, Absolute 0.00 10 3/mcL Normal 0.00-0.40 A [facility] ([place]) Comment on above: Performed By: #### C BC ADANJALI ANEU, BMP #### [place] [address] #### GFR #### [address] [address] Eosinophils/100 WBC (Bld) 0.1 % Normal 0.0-7.0 [facility] ([place]) Comment on above: Performed By: #### C BC, ADIFF, ANEU, BMP #### [address] [address] #### GFR #### [address] [address] Lymphocyte, Absolute 1.30 10 3/mcL Normal 0.77-3.85 A [facility] ([place]) Comment on above: Performed By: #### C BC, ADIFF, ANEU, BMP #### [address] [address] #### GFR #### [address] [address] Lymphocytes/100 WBC (Bld) 7.8 % Low 10.0-50.0 [facility] ([place]) Comment on above: Performed By: #### C BC, ADIFF, ANEU, BMP #### [place] [address] #### GFR #### [address] [address] Monocyte, Absolute 1.20 10 3/mcL High 0.15-1.00 [facility] ([place]) Comment on above: Performed By: #### C BC, ADIFF, ANEU, BMP #### [place] [address] #### GFR #### [address] [address] Monocytes/100 WBC (Bld) 7.3 % Normal 1.7-13.0 [facility] ([place]) Comment on above: Performed By: #### C BC, ADIFF, ANEU, BMP #### [address] [address] #### GFR #### [address] [address] Neutrophils/100 WBC (Bld) 84.7 % High 37.0-80.0 [facility] ([place]) Comment on above: Performed By: #### C BC, ADIFF, ANEU, BMP #### [place] [id number] #### GFR #### [address] [address] .GFRon 09-12-2020 GFR Non- 47 ml/min/1.73sqm Normal [facility] ([place]) Comment on above: Result Comment: GFR Population mean for , Non- Americans Ages 20-29 = 116 mL/min/1.73 sq.m. Ages 30-39 = 107 mL/min/1.73 sq.m. Ages 40-49 = 99 mL/min/1.73 sq.m. Ages 50-59 = 93 mL/min/1.73 sq.m. Ages 60-69 = 85 mL/min/1.73 sq.m. Ages 70+ = 75 mL/min/1.73 sq.m. Chronic Kidney Disease: Less than 60 mL/min/1.73 square meters End Stage Renal Disease: Less than 15 mL/min/1.73 square meters Performed By: #### B MP, CBC, ADIFF, ANEU #### [address] [address] #### GFR #### [address] [address] GFR 57 ml/min/1.73sqm Normal [facility] ([place]) Comment on above: Result Comment: GFR Population mean for , Non- Americans Ages 20-29 = 116 mL/min/1.73 sq.m. Ages 30-39 = 107 mL/min/1.73 sq.m. Ages 40-49 = 99 mL/min/1.73 sq.m. Ages 50-59 = 93 mL/min/1.73 sq.m. Ages 60-69 = 85 mL/min/1.73 sq.m. Ages 70+ = 75 mL/min/1.73 sq.m. Chronic Kidney Disease: Less than 60 mL/min/1.73 square meters End Stage Renal Disease: Less than 15 mL/min/1.73 square meters Performed By: #### B MP, CBC, ADIFF, ANEU #### [address] [address] #### GFR #### [address] [address] .NEUABSon 09-12-2020 Neutrophil, Absolute 13.80 10 3/mcL High 2.85-6.16 [facility] ([place]) Comment on above: Performed By: #### C BC, ADIFF, ANEU, BMP #### [address] [address] #### GFR #### [address] [address] BMPon 09-12-2020 BUN/Creatinine Ratio 13 ratio Normal 7-27 [facility] ([place]) Comment on above: Performed By: #### B MP, CBC, ADIFF, ANEU #### [address] [address] #### GFR #### [address] [address] Calcium [Mass/Vol] 8.9 mg/dL Normal 8.4-10.2 [facility] ([place]) Comment on above: Performed By: #### B MP, CBC, ADIFF, ANEU #### [address] [address] #### GFR #### [address] [address] Chloride [Moles/Vol] 106 mmol/L Normal 98-107 [facility] ([place]) Comment on above: Performed By: #### B MP, CBC, ADIFF, ANEU #### [address] [address] #### GFR #### [address] [address] CO2 [Moles/Vol] 30 mmol/L Normal 23-31 [facility] ([place]) Comment on above: Performed By: #### B MP, CBC, ADIFF, ANEU #### [address] [address] #### GFR #### [address] [address] Creatinine [Mass/Vol] 1.15 mg/dL High 0.55-1.02 [facility] ([place]) Comment on above: Performed By: #### B MP, CBC, ADIFF, ANEU #### [address] [address] #### GFR #### [address] [address] Electrolyte Balance 7.0 mEq/L Normal [facility] ([place]) Comment on above: Performed By: #### B MP, CBC, ADIFF, ANEU #### [address] [address] #### GFR #### [address] [address] Glucose [Mass/Vol] 166 mg/dL High 80-115 [facility] ([place]) Comment on above: Performed By: #### B MP, CBC, ADIFF, ANEU #### [address] [address] #### GFR #### [address] [address] Potassium [Moles/Vol] 4.9 mmol/L Normal 3.5-5.1 [facility] ([place]) Comment on above: Performed By: #### B MP, CBC, ADIFF, ANEU #### [address] [address] #### GFR #### [address] [address] Sodium [Moles/Vol] 143 mmol/L Normal 136-145 [facility] ([place]) Comment on above: Performed By: #### B MP, CBC, ADIFF, ANEU #### [address] [address] #### GFR #### [address] [address] Urea nitrogen [Mass/Vol] 15 mg/dL Normal 7-18 [facility] ([place]) Comment on above: Performed By: #### B MP, CBC, ADIFF, ANEU #### [address] [address] #### GFR #### [address] [address] CBCon 09-12-2020 Erythrocyte distribution width (RBC) [Ratio] 12.9 % Normal 11.5-14.5 [facility] ([place]) Comment on above: Performed By: #### C JUANY THOMAS ANEU, BMP #### [address] [address] #### GFR #### [place] [address] Hematocrit (Bld) [Volume fraction] 34.8 % Low 37.0-47.0 [facility] ([place]) Comment on above: Performed By: #### C JUANY THOMAS ANEU, BMP #### [place] [address] #### GFR #### [place] [address] Hgb 11.8 G/dL Low 12.0-16.0 [facility] ([place]) Comment on above: Performed By: #### C JUANY THOMAS ANEU, BMP #### [address] [address] #### GFR #### [place] [address] MCH (RBC) [Entitic mass] 30.6 pg Normal 27.0-31.2 [facility] ([place]) Comment on above: Performed By: #### C JUANY THOMAS ANEU, BMP #### [place] [address] #### GFR #### [place] [address] MCHC 34.0 G/dL Normal 33.0-37.0 [facility] ([place]) Comment on above: Performed By: #### C JUANY THOMAS ANEU, BMP #### [place] [address] #### GFR #### [place] [address] MCV (RBC) [Entitic vol] 90.1 fL Normal 80.0-94.0 [facility] ([place]) Comment on above: Performed By: #### C BC, ADIFF, ANEU, BMP #### [address] [address] #### GFR #### [address] [address] Platelet 254 10 3/mcL Normal 130-400 [facility] ([place]) Comment on above: Performed By: #### C BC, ADIFF, ANEU, BMP #### [place] [address] #### GFR #### [address] [address] Platelet mean volume (Bld) [Entitic vol] 8.7 fL Normal 7.4-10.4 [facility] ([place]) Comment on above: Performed By: #### C BC, ADIFF, ANEU, BMP #### [place] [address] #### GFR #### [place] [address] RBC 3.86 10 6/mcL Low 4.20-5.40 [facility] ([place]) Comment on above: Performed By: #### C BC, ADIFF, ANEU, BMP #### [address] [address] #### GFR #### [place] [address] WBC 16.30 10 3/mcL High 4.60-10.80 [facility] ([place]) Comment on above: Performed By: #### C BC, ADIFF, ANEU, BMP #### [place] [address] #### GFR #### [place] [address] XR FLUORO 1-2 HRS TECH TIMEo n 09-11-2020 XR FLUORO 1-2 HRS TECH TIME ORIGINAL Images acquired, not reported on this accession number. Normal [facility] ([place]) XR HIP RIGHT W/PELVIS 4 VIEW Son 09-11-2020 XR HIP RIGHT W/PELVIS 4 VIEWS ORIGINAL XR HIP RIGHT W/PELVIS 4 VIEWS CLINICAL STATEMENT: Status Post Arthroplasty. COMPARISON: None FINDINGS: The SI joints and pubic symphysis are not abnormally widened. There are bilateral hip prostheses. The components appear well seated and intact. Plate and screw fixation of the LEFT proximal femur is also seen. The RIGHT hip in particular demonstrates no acute fracture or dislocation. There is gas within the soft tissues consistent with immediate postoperative state. IMPRESSION: Post surgical changes. Interpreted By: Katarzyna Murrell MD Preliminary Report By: Katarzyna Murrell MD Electronically Signed By: Katarzyna Murrell MD Dictated Date: 09/11/2020 12:43:36 PM Prelim Date: 09/11/2020 12:43:36 PM Sign Date: 09/11/2020 12:44:22 PM Ordering Provider:Irene Hall [facility] ([place]) .Auto Diffon 08-27-2020 Basophil, Absolute 0.10 10 3/mcL Normal 0.00-0.19 [facility] ([place]) Comment on above: Performed By: #### B MP, CBC, ADIFF, ANEU #### [place] [address] #### GFR #### [address] [address] Basophils/100 WBC (Bld) 0.7 % Normal 0.0-2.5 [facility] ([place]) Comment on above: Performed By: #### B MP, CBC, ADIFF, ANEU #### [place] [address] #### GFR #### [address] [address] Eosinophil, Absolute 0.30 10 3/mcL Normal 0.00-0.40 [facility] ([place]) Comment on above: Performed By: #### B MP, CBC, ADIFF, ANEU #### [place] [address] #### GFR #### [address] [address] Eosinophils/100 WBC (Bld) 3.9 % Normal 0.0-7.0 [facility] ([place]) Comment on above: Performed By: #### B MP, CBC, ADIFF, ANEU #### [address] [address] #### GFR #### [address] [address] Lymphocyte, Absolute 2.00 10 3/mcL Normal 0.77-3.85 [facility] ([place]) Comment on above: Performed By: #### B MP, CBC, ADIFF, ANEU #### [address] [address] #### GFR #### [address] [address] Lymphocytes/100 WBC (Bld) 23.7 % Normal 10.0-50.0 [facility] ([place]) Comment on above: Performed By: #### B MP, CBC, ADIFF, ANEU #### [address] [address] #### GFR #### [address] [address] Monocyte, Absolute 0.50 10 3/mcL Normal 0.15-1.00 [facility] ([place]) Comment on above: Performed By: #### B MP, CBC, ADIFF, ANEU #### [address] [address] #### GFR #### [address] [address] Monocytes/100 WBC (Bld) 5.7 % Normal 1.7-13.0 [facility] ([place]) Comment on above: Performed By: #### B MP, CBC, ADIFF, ANEU #### [address] [address] #### GFR #### [address] [address] Neutrophils/100 WBC (Bld) 66.0 % Normal 37.0-80.0 [facility] ([place]) Comment on above: Performed By: #### B MP, CBC, ADIFF, ANEU #### [address] [address] #### GFR #### [address] [address] .GFRon 08-27-2020 GFR Non- 56 ml/min/1.73sqm Normal [facility] ([place]) Comment on above: Result Comment: GFR Population mean for , Non- Americans Ages 20-29 = 116 mL/min/1.73 sq.m. Ages 30-39 = 107 mL/min/1.73 sq.m. Ages 40-49 = 99 mL/min/1.73 sq.m. Ages 50-59 = 93 mL/min/1.73 sq.m. Ages 60-69 = 85 mL/min/1.73 sq.m. Ages 70+ = 75 mL/min/1.73 sq.m. Chronic Kidney Disease: Less than 60 mL/min/1.73 square meters End Stage Renal Disease: Less than 15 mL/min/1.73 square meters Performed By: #### B MP, CBC, ADIFF, ANEU #### [address] [address] #### GFR #### [address] [address] GFR 68 ml/min/1.73sqm Normal [facility] ([place]) Comment on above: Result Comment: GFR Population mean for , Non- Americans Ages 20-29 = 116 mL/min/1.73 sq.m. Ages 30-39 = 107 mL/min/1.73 sq.m. Ages 40-49 = 99 mL/min/1.73 sq.m. Ages 50-59 = 93 mL/min/1.73 sq.m. Ages 60-69 = 85 mL/min/1.73 sq.m. Ages 70+ = 75 mL/min/1.73 sq.m. Chronic Kidney Disease: Less than 60 mL/min/1.73 square meters End Stage Renal Disease: Less than 15 mL/min/1.73 square meters Performed By: #### B MP, CBC, ADIFF, ANEU #### [address] [address] #### GFR #### [address] [address] .NEUABSon 08-27-2020 Neutrophil, Absolute 5.50 10 3/mcL Normal 2.85-6.16 [facility] ([place]) Comment on above: Performed By: #### B MP, CBC, ADIFF, ANEU #### [address] [address] #### GFR #### [address] [address] BMPon 08-27-2020 BUN/Creatinine Ratio 13 ratio Normal 7-27 [facility] ([place]) Comment on above: Performed By: #### B MP, CBC, ADIFF, ANEU #### [address] [address] #### GFR #### [address] [address] Calcium [Mass/Vol] 8.9 mg/dL Normal 8.4-10.2 [facility] ([place]) Comment on above: Performed By: #### B MP, CBC, ADIFF, ANEU #### [address] [address] #### GFR #### [address] [address] Chloride [Moles/Vol] 102 mmol/L Normal 98-107 [facility] ([place]) Comment on above: Performed By: #### B MP, CBC, ADIFF, ANEU #### [address] [address] #### GFR #### [address] [address] CO2 [Moles/Vol] 30 mmol/L Normal 23-31 [facility] ([place]) Comment on above: Performed By: #### B MP, CBC, ADIFF, ANEU #### [address] [address] #### GFR #### [address] [address] Creatinine [Mass/Vol] 0.99 mg/dL Normal 0.55-1.02 [facility] ([place]) Comment on above: Performed By: #### B MP, CBC, ADIFF, ANEU #### [address] [address] #### GFR #### [address] [address] Electrolyte Balance 9.0 mEq/L Normal [facility] ([place]) Comment on above: Performed By: #### B MP, CBC, ADIFF, ANEU #### [address] [address] #### GFR #### [address] [address] Glucose [Mass/Vol] 118 mg/dL High 80-115 [facility] ([place]) Comment on above: Performed By: #### B MP, CBC, ADIFF, ANEU #### [address] [address] #### GFR #### [address] [address] Potassium [Moles/Vol] 4.3 mmol/L Normal 3.5-5.1 [facility] ([place]) Comment on above: Performed By: #### B MP, CBC, ADIFF, ANEU #### [address] [address] #### GFR #### [address] [address] Sodium [Moles/Vol] 141 mmol/L Normal 136-145 [facility] ([place]) Comment on above: Performed By: #### B MP, CBC, ADIFF, ANEU #### [address] [address] #### GFR #### [address] [address] Urea nitrogen [Mass/Vol] 13 mg/dL Normal 7-18 [facility] ([place]) Comment on above: Performed By: #### B MP, CBC, ADIFF, ANEU #### [address] [address] #### GFR #### [address] [address] CBCon 08-27-2020 Erythrocyte distribution width (RBC) [Ratio] 12.7 % Normal 11.5-14.5 [facility] ([place]) Comment on above: Order Comment: Pre-A dmission Testing Performed By: #### B MP, CBC, ADIFF, ANEU #### [address] [address] #### GFR #### [address] [address] Hematocrit (Bld) [Volume fraction] 40.6 % Normal 37.0-47.0 [facility] ([place] Comment on above: Order Comment: Pre-A dmission Testing Performed By: #### B MP, CBC, ADIFF, ANEU #### [address] [address] #### GFR #### [place] [address] Hgb 13.7 G/dL Normal 12.0-16.0 [facility] ([place]) Comment on above: Order Comment: Pre-A dmission Testing Performed By: #### B MP, CBC, ADIFF, ANEU #### [address] [address] #### GFR #### [address] [address] MCH (RBC) [Entitic mass] 31.1 pg Normal 27.0-31.2 [facility] ([place]) Comment on above: Order Comment: Pre-A dmission Testing Performed By: #### B MP, CBC, ADIFF, ANEU #### [address] [address] #### GFR #### [place] [address] MCHC 33.8 G/dL Normal 33.0-37.0 [facility] ([place] Comment on above: Order Comment: Pre-A dmission Testing Performed By: #### B MP, CBC, ADIFF, ANEU #### [address] [address] #### GFR #### [address] [address] MCV (RBC) [Entitic vol] 91.9 fL Normal 80.0-94.0 [facility] ([place]) Comment on above: Order Comment: Pre-A dmission Testing Performed By: #### B MP, CBC, ADIFF, ANEU #### [place] [address] #### GFR #### [place] [address] Platelet 308 10 3/mcL Normal 130-400 [facility] ([place] Comment on above: Order Comment: Pre-A dmission Testing Performed By: #### B MP, CBC, ADIFF, ANEU #### [place] [address] #### GFR #### [place] [address] Platelet mean volume (Bld) [Entitic vol] 8.7 fL Normal 7.4-10.4 [facility] ([place] Comment on above: Order Comment: Pre-A dmission Testing Performed By: #### B MP, CBC, ADIFF, ANEU #### [place] [address] #### GFR #### [place] [address] RBC 4.42 10 6/mcL Normal 4.20-5.40 [facility] ([place] Comment on above: Order Comment: Pre-A dmission Testing Performed By: #### B MP, CBC, ADIFF, ANEU #### [place] [address] #### GFR #### [place] [address] WBC 8.40 10 3/mcL Normal 4.60-10.80 [facility] ([place]) Comment on above: Order Comment: Pre-A dmission Testing Performed By: #### B MP, CBC, ADIFF, ANEU #### [place] [address] #### GFR #### [facility] [address] [place] [address] Vital Signs Date Time Vital Sign Value Performing Clinician Facility 11-03-2024 11:37-0400 Body mass index (BMI) [Ratio] 35.41 kg/m2 Sheri Hutchins MD Work Phone: [facility] 11-03-2024 11:37-0400 Body weight 90.1 kg Sheri Hutchins MD Work Phone: [facility] 11-03-2024 11:37-0400 Diastolic blood pressure 70 mm[Hg] Sheri Hutchins MD Work Phone: [facility] 11-03-2024 11:37-0400 Heart rate 71 /min Sheri Hutchins MD Work Phone: [facility] 11-03-2024 11:37-0400 Respiratory rate 14 /min Sheri Hutchins MD Work Phone: [facility] 11-03-2024 11:37-0400 SaO2% (BldA) [Mass fraction] 98 % Sheri Hutchins MD Work Phone: [facility] 11-03-2024 11:37-0400 Systolic blood pressure 100 mm[Hg] Sheri Hutchins MD Work Phone: [facility] 09-26-2024 14:07-0400 Body mass index (BMI) [Ratio] 34.51 kg/m2 Marianna Finnegan HISTORY CARD CLERK.PEDIATRIC CLINICAL NURSE SPECIALIST Work Phone: [facility] 09-26-2024 14:07-0400 Body temperature 97.39 [degF] Marianna Finnegan HISTORY CARD CLERK.PEDIATRIC CLINICAL NURSE SPECIALIST Work Phone: [facility] 09-26-2024 14:07-0400 Body weight 87.8 kg Marianna Finnegan HISTORY CARD CLERK.PEDIATRIC CLINICAL NURSE SPECIALIST Work Phone: [facility] 09-26-2024 14:07-0400 Diastolic blood pressure 77 mm[Hg] Marianna Finnegan HISTORY CARD CLERK.PEDIATRIC CLINICAL NURSE SPECIALIST Work Phone: [facility] 09-26-2024 14:07-0400 Heart rate 74 /min Marianna Finnegan HISTORY CARD CLERK.PEDIATRIC CLINICAL NURSE SPECIALIST Work Phone: [facility] 09-26-2024 14:07-0400 Respiratory rate 16 /min Marianna Torress HISTORY CARD CLERK.PEDIATRIC CLINICAL NURSE SPECIALIST Work Phone: [facility] 09-26-2024 14:07-0400 SaO2% (BldA) [Mass fraction] 97 % Marianna Finnegan HISTORY CARD CLERK.PEDIATRIC CLINICAL NURSE SPECIALIST Work Phone: [facility] 09-26-2024 14:07-0400 Systolic blood pressure 127 mm[Hg] [facility] HISTORY CARD CLERK.PEDIATRIC CLINICAL NURSE SPECIALIST Work Phone: 4(464)582-228204 [place] [address] 09-22-2024 15:12-0400 Body height 157.[address] Sheri Hutchins MD Work Phone: 2(433)205-494738 [place] [address] 09-22-2024 15:12-0400 Body mass index (BMI) [Ratio] 35.4 kg/m2 Dr. Sheri Hutchins MD Work Phone: 7(744)383-986538 [place] [address] 09-22-2024 15:12-0400 Body temperature 97.1 [degF] Dr. Sheri Hutchins MD Work Phone: 5(515)197-458199 [place] [address] 09-22-2024 15:12-0400 Body weight 87.[address] Sheri Hutchnis MD Work Phone: 8(361)569-895238 [place] [address] 09-22-2024 15:12-0400 Diastolic blood pressure 76 mm[Hg] Dr. Sheri Hutchins MD Work Phone: 2(583)926-969899 [place] [address] 09-22-2024 15:12-0400 Heart rate 79 /min Dr. Sheri Hutchins MD Work Phone: 5(189)746-189638 [place] [address] 09-22-2024 15:12-0400 Respiratory rate 18 /min Dr. Sheri Hutchins MD Work Phone: 4(607)621-577099 [place] [address] 09-22-2024 15:12-0400 SaO2% (BldA) [Mass fraction] 95 % Dr. Sheri Hutchins MD Work Phone: 7(029)590-494203 [address] [place], [place] [address] 15:12-0400 Systolic blood pressure 111 mm[Hg] Dr. Sheri Hutchins MD Work Phone: [facility] 09-21-2024 08:53-0400 Body mass index (BMI) [Ratio] 34.07 kg/m2 Alexandrea Clutter PA-C Work Phone: [facility] 09-21-2024 08:53-0400 Body temperature 97.5 [degF] Alexandrea Clutter PA-C Work Phone: [facility] 09-21-2024 08:53-0400 Body weight 86.7 kg Alexandrea Clutter PA-C Work Phone: [facility] 09-21-2024 08:53-0400 Diastolic blood pressure 74 mm[Hg] Alexandrea Clutter PA-C Work Phone: [facility] 09-21-2024 08:53-0400 Heart rate 80 /min Alexandrea Clutter PA-C Work Phone: [facility] 09-21-2024 08:53-0400 Respiratory rate 18 /min Alexandrea Clutter PA-C Work Phone: [facility] 09-21-2024 08:53-0400 SaO2% (BldA) [Mass fraction] 96 % Alexandrea Clutter PA-C Work Phone: [facility] 09-21-2024 08:53-0400 Systolic blood pressure 118 mm[Hg] Alexandrea Clutter PA-C Work Phone: [facility] 07-29-2024 13:14-0400 Body temperature 95.6 [degF] Dr. Sheri Hutchins MD Work Phone: [facility] 07-29-2024 13:14-0400 Body weight 87.[address] Sheri Hutchins MD Work Phone: [facility] 07-29-2024 13:14-0400 Diastolic blood pressure 71 mm[Hg] Dr. Sheri Hutchins MD Work Phone: [facility] 07-29-2024 13:14-0400 Heart rate 76 /min Dr. Sheri Hutchins MD Work Phone: 2(875)712-067938 [place] [address] 07-29-2024 13:14-0400 Respiratory rate 16 /min Dr. Sheri Hutchins MD Work Phone: 3(442)952-252438 [place] [address] 07-29-2024 13:14-0400 SaO2% (BldA) [Mass fraction] 95 % Dr. Sheri Hutchins MD Work Phone: 3(245)218-812538 [place] [address] 07-29-2024 13:14-0400 Systolic blood pressure 128 mm[Hg] Dr. Sheri Hutchins MD Work Phone: 8(176)753-800238 [place] [address] 07-07-2024 14:46-0500 Body mass index (BMI) [Ratio] 35.4 kg/m2 Dr. Sheri Hutchins MD Work Phone: 1(873)032-829438 [place] [address] 07-07-2024 14:46-0500 Body temperature 97 [degF] Dr. Sheri Hutchins MD Work Phone: 0(068)222-886138 [place] [address] 07-07-2024 14:46-0500 Body weight 87.[address] Sheri Hutchins MD Work Phone: 3(559)172-784238 [place] [address] 07-07-2024 14:46-0500 Diastolic blood pressure 68 mm[Hg] Dr. Sheri Hutchins MD Work Phone: 7(159)467-926838 [place] [address] 07-07-2024 14:46-0500 Heart rate 80 /min Dr. Sheri Hutchins MD Work Phone: 5(728)249-539338 [place] [address] 07-07-2024 14:46-0500 Respiratory rate 18 /min Dr. Sheri Hutchins MD Work Phone: 9(192)206-054238 [place] [address] 07-07-2024 14:46-0500 SaO2% (BldA) [Mass fraction] 95 % Dr. Sheri Hutchins MD Work Phone: 7(770)663-322638 [place] [address] 07-07-2024 14:46-0500 Systolic blood pressure 103 mm[Hg] Dr. Sheri Hutchins MD Work Phone: [facility] 04-25-2024 14:54-0500 Body mass index (BMI) [Ratio] 33.52 kg/m2 Sheri Hutchins MD Work Phone: [facility] 04-25-2024 14:54-0500 Body temperature 99.19 [degF] Sheri Hutchins MD Work Phone: [facility] 04-25-2024 14:54-0500 Body weight 85.3 kg Sheri Hutchins MD Work Phone: [facility] 04-25-2024 14:54-0500 Diastolic blood pressure 88 mm[Hg] Sheri Hutchins MD Work Phone: [facility] 04-25-2024 14:54-0500 Heart rate 77 /min Sheri Hutchins MD Work Phone: [facility] 04-25-2024 14:54-0500 Respiratory rate 14 /min Sheri Hutchins MD Work Phone: [facility] 04-25-2024 14:54-0500 SaO2% (BldA) [Mass fraction] 97 % Sheri Hutchins MD Work Phone: [facility] 04-25-2024 14:54-0500 Systolic blood pressure 132 mm[Hg] Sheri Hutchins MD Work Phone: [facility] 03-11-2024 17:11-0400 Body mass index (BMI) [Ratio] 33.29 kg/m2 Sheri Hutchins MD Work Phone: [facility] 03-11-2024 17:11-0400 Body temperature 98.29 [degF] Sheri Hutchins MD Work Phone: [facility] 03-11-2024 17:11-0400 Body weight 84.7 kg Sheri Hutchins MD Work Phone: [facility] 03-11-2024 17:11-0400 Diastolic blood pressure 78 mm[Hg] Sheri Hutchins MD Work Phone: [facility] 03-11-2024 17:11-0400 Heart rate 81 /min Sheri Hutchins MD Work Phone: [facility] 03-11-2024 17:11-0400 Respiratory rate 16 /min Sheri Hutchins MD Work Phone: [facility] 03-11-2024 17:11-0400 SaO2% (BldA) [Mass fraction] 98 % Sheri Hutchins MD Work Phone: [facility] 03-11-2024 17:11-0400 Systolic blood pressure 128 mm[Hg] Sheri Hutchins MD Work Phone: [facility] 02-16-2024 08:06-0400 Body mass index (BMI) [Ratio] 34.55 kg/m2 Jcak Jeet HISTORY CARD CLERK.REPAIR TECHNICIAN Work Phone: [facility] 02-16-2024 08:06-0400 Body weight 87.9 kg Jack Jeet HISTORY CARD CLERK.REPAIR TECHNICIAN Work Phone: [facility] 02-16-2024 08:06-0400 Diastolic blood pressure 68 mm[Hg] Jack Jeet HISTORY CARD CLERK.REPAIR TECHNICIAN Work Phone: [facility] 02-16-2024 08:06-0400 Heart rate 73 /min Jack Jeet HISTORY CARD CLERK.REPAIR TECHNICIAN Work Phone: [facility] 02-16-2024 08:06-0400 SaO2% (BldA) [Mass fraction] 94 % Jack Jeet HISTORY CARD CLERK.REPAIR TECHNICIAN Work Phone: [facility] 02-16-2024 08:06-0400 Systolic blood pressure 138 mm[Hg] Jack Jeet HISTORY CARD CLERK.REPAIR TECHNICIAN Work Phone: [facility] 12-25-2023 13:06-0400 Body height 159.5 cm Pulm Wstr Work Phone: [facility] 12-25-2023 13:06-0400 Body mass index (BMI) [Ratio] 33.87 kg/m2 Pulm Wstr Work Phone: [facility] 12-25-2023 13:06-0400 Body weight 86.18 kg Pulm Wstr Work Phone: [facility] 12-25-2023 13:06-0400 Heart rate 73 /min Pulm Wstr Work Phone: [facility] 12-25-2023 13:06-0400 Respiratory rate 14 /min Pulm Wstr Work Phone: [facility] 12-25-2023 13:06-0400 SaO2% (BldA) [Mass fraction] 95 % Pulm Wstr Work Phone: [facility] 11-19-2023 13:55-0400 Body height 157.5 cm Sheri Hutchins MD Work Phone: [facility] 11-19-2023 13:55-0400 Body mass index (BMI) [Ratio] 34.39 kg/m2 Sheri Hutchins MD Work Phone: [facility] 11-19-2023 13:55-0400 Body temperature 94.89 [degF] Sheri Hutchins MD Work Phone: [facility] 11-19-2023 13:55-0400 Body weight 85.28 kg Sheri Hutchins MD Work Phone: [facility] 11-19-2023 13:55-0400 Diastolic blood pressure 70 mm[Hg] Sheri Hutchins MD Work Phone: [facility] 11-19-2023 13:55-0400 Heart rate 77 /min Sheri Hutchins MD Work Phone: [facility] 11-19-2023 13:55-0400 Respiratory rate 14 /min Sheri Hutchins MD Work Phone: [facility] 11-19-2023 13:55-0400 SaO2% (BldA) [Mass fraction] 97 % Sheri Hutchins MD Work Phone: [facility] 11-19-2023 13:55-0400 Systolic blood pressure 128 mm[Hg] Sheri Hutchins MD Work Phone: [facility] 10-31-2023 14:53-0400 Body mass index (BMI) [Ratio] 34.52 kg/m2 [facility] HISTORY CARD CLERK.REPAIR TECHNICIAN Work Phone: [facility] 10-31-2023 14:53-0400 Body temperature 98.71 [degF] [facility] HISTORY CARD CLERK.REPAIR TECHNICIAN Work Phone: [facility] 10-31-2023 14:53-0400 Body weight 85.6 kg [facility] HISTORY CARD CLERK.REPAIR TECHNICIAN Work Phone: [facility] 10-31-2023 14:53-0400 Diastolic blood pressure 84 mm[Hg] [facility] HISTORY CARD CLERK.REPAIR TECHNICIAN Work Phone: [facility] 10-31-2023 14:53-0400 Heart rate 79 /min [facility] HISTORY CARD CLERK.REPAIR TECHNICIAN Work Phone: [facility] 10-31-2023 14:53-0400 Respiratory rate 18 /min [facility] HISTORY CARD CLERK.REPAIR TECHNICIAN Work Phone: [facility] 10-31-2023 14:53-0400 SaO2% (BldA) [Mass fraction] 96 % [facility] HISTORY CARD CLERK.REPAIR TECHNICIAN Work Phone: [facility] 10-31-2023 14:53-0400 Systolic blood pressure 148 mm[Hg] [facility] HISTORY CARD CLERK.REPAIR TECHNICIAN Work Phone: [facility] 04-17-2023 14:32-0500 Body temperature 98.6 [degF] Helene Athy PA-C Work Phone: [facility] 04-17-2023 14:32-0500 Body weight 83.83 kg Helene Athy PA-C Work Phone: [facility] 04-17-2023 14:32-0500 Diastolic blood pressure 84 mm[Hg] Helene Athy PA-C Work Phone: [facility] 04-17-2023 14:32-0500 Heart rate 76 /min Helene Athy PA-C Work Phone: [facility] 04-17-2023 14:32-0500 Respiratory rate 18 /min Helene Athy PA-C Work Phone: [facility] 04-17-2023 14:32-0500 SaO2% (BldA) [Mass fraction] 95 % Helene Athy PA-C Work Phone: [facility] 04-17-2023 14:32-0500 Systolic blood pressure 126 mm[Hg] Helene Athy PA-C Work Phone: [facility] 11-19-2022 14:08-0400 Body temperature 98.2 [degF] Joanna Vernonia PA-C Work Phone: [facility] 11-19-2022 14:08-0400 Body weight 85.46 kg Joanna Vernonia PA-C Work Phone: [facility] 11-19-2022 14:08-0400 Diastolic blood pressure 80 mm[Hg] Joanna Vernonia PA-C Work Phone: [facility] 11-19-2022 14:08-0400 Heart rate 77 /min Joanna Vernonia PA-C Work Phone: [facility] 11-19-2022 14:08-0400 Respiratory rate 17 /min Joanna Vernonia PA-C Work Phone: [facility] 11-19-2022 14:08-0400 SaO2% (BldA) [Mass fraction] 94 % Joanna Omar PA-C Work Phone: [facility] 11-19-2022 14:08-0400 Systolic blood pressure 122 mm[Hg] Joanna Vernonia PA-C Work Phone: [facility] 10-22-2022 16:45-0400 Body weight 84.37 kg Sheri Hutchins MD Work Phone: [facility] 10-22-2022 16:45-0400 Diastolic blood pressure 70 mm[Hg] Sheri Hutchins MD Work Phone: [facility] 10-22-2022 16:45-0400 Heart rate 78 /min Sheri Hutchins MD Work Phone: [facility] 10-22-2022 16:45-0400 Respiratory rate 16 /min Sheri Hutchins MD Work Phone: [facility] 10-22-2022 16:45-0400 SaO2% (BldA) [Mass fraction] 98 % Sheri Hutchins MD Work Phone: [facility] 10-22-2022 16:45-0400 Systolic blood pressure 110 mm[Hg] Sheri Hutchins MD Work Phone: [facility] 01-06-2022 11:07-0400 Body weight 88.45 kg Sheri Hutchins MD Work Phone: [facility] 01-06-2022 11:07-0400 Diastolic blood pressure 70 mm[Hg] Sheri Hutchins MD Work Phone: [facility] 01-06-2022 11:07-0400 Heart rate 66 /min Sheri Hutchins MD Work Phone: [facility] 01-06-2022 11:07-0400 SaO2% (BldA) [Mass fraction] 96 % Sheri Hutchins MD Work Phone: [facility] 01-06-2022 11:07-0400 Systolic blood pressure 122 mm[Hg] Sheri Hutchins MD Work Phone: [facility] 01-03-2022 22:59-0400 Body height 157.48 cm [facility] Work Phone: 01-03-2022 22:59-0400 Body mass index (BMI) [Ratio] 35.1 kg/m2 [facility] Work Phone: 01-03-2022 22:59-0400 Body temperature 96 [degF] [facility] Work Phone: 01-03-2022 22:59-0400 Body weight 87.08 kg [facility] Work Phone: 01-03-2022 22:59-0400 Diastolic blood pressure 85 mm[Hg] [facility] Work Phone: 01-03-2022 22:59-0400 Heart rate 68 /min [facility] Work Phone: 01-03-2022 22:59-0400 Respiratory rate 16 /min [facility] Work Phone: 01-03-2022 22:59-0400 SaO2% (BldA) [Mass fraction] 94 % [facility] Work Phone: 01-03-2022 22:59-0400 Systolic blood pressure 165 mm[Hg] [facility] Work Phone: 11-05-2021 14:07-0400 Body weight 91.63 kg Sheri Hutchins MD Work Phone: [facility] 11-05-2021 14:07-0400 Diastolic blood pressure 74 mm[Hg] Sheri Hutchins MD Work Phone: [facility] 11-05-2021 14:07-0400 Heart rate 74 /min Sheri Hutchins MD Work Phone: [facility] 11-05-2021 14:07-0400 SaO2% (BldA) [Mass fraction] 95 % Sheri Hutchins MD Work Phone: [facility] 11-05-2021 14:07-0400 Systolic blood pressure 128 mm[Hg] Sheri Hutchins MD Work Phone: [facility] 05-29-2021 08:52-0500 Body temperature 97.7 [degF] DR IRENE BARRAZA MD [facility] 05-29-2021 08:52-0500 Diastolic Blood Pressure NBP [address] IRENE BARRAZA MD [facility] 05-29-2021 08:52-0500 Heart rate 69 /min DR IRENE BARRAZA MD [facility] 05-29-2021 08:52-0500 Reason For Taking VItal Signs DR IRENE BARRAZA MD [facility] 05-29-2021 08:52-0500 Respiratory rate 16 /min DR IRENE BARRAZA MD [facility] 05-29-2021 08:52-0500 Systolic Blood Pressure NBP [address] IRENE BARRAZA MD [facility] 05-29-2021 03:59-0500 Body temperature 97.7 [degF] DR IRENE BARRAZA MD [facility] 05-29-2021 03:59-0500 Diastolic Blood Pressure NBP [address] IRENE BARRAZA MD [facility] 05-29-2021 03:59-0500 Heart rate 70 /min DR IRENE BARRAZA MD [facility] 05-29-2021 03:59-0500 Reason For Taking VItal Signs DR IRENE BARRAZA MD [facility] 05-29-2021 03:59-0500 Respiratory rate 16 /min DR IRENE BARRAZA MD [facility] 05-29-2021 03:59-0500 Systolic Blood Pressure NBP [address] IRENE BARRAZA MD [facility] 05-28-2021 23:19-0500 Body temperature 97.7 [degF] DR IRENE BARRAZA MD [facility] 05-28-2021 23:19-0500 Diastolic Blood Pressure NBP [address] IRENE BARRAZA MD [facility] 05-28-2021 23:19-0500 Heart rate 77 /min DR IRENE BARRAZA MD [facility] 05-28-2021 23:19-0500 Reason For Taking VItal Signs DR IRENE BARRAZA MD [facility] 05-28-2021 23:19-0500 Respiratory rate 18 /min DR IRENE BARRAZA MD [facility] 05-28-2021 23:19-0500 Systolic Blood Pressure NBP [address] IRENE BARRAZA MD [facility] 05-28-2021 18:14-0500 Heart rate 86 /min DR IRENE BARRAZA MD [facility] 05-28-2021 18:00-0500 Diastolic blood pressure 77 mm[Hg] DR IRENE BARRAZA MD [facility] 05-28-2021 18:00-0500 Mean blood pressure 97 mm[Hg] DR IRENE BARRAZA MD [facility] 05-28-2021 18:00-0500 Systolic blood pressure 136 mm[Hg] DR IRENE BARRAZA MD [facility] 05-28-2021 16:18-0500 Body height [address] IRENE BARRAZA MD [facility] 05-28-2021 16:18-0500 Body weight 93.[address] IRENE BARRAZA MD [facility] 05-28-2021 16:18-0500 Body weight 36.64 kg/m2 DR IRENE BARRAZA MD [facility] 05-28-2021 13:30-0500 Body temperature 98.06 [degF] DR IRENE BARRAZA MD [facility] 05-28-2021 11:40-0500 Heart rate 74 /min DR IRENE BARRAZA MD [facility] 05-28-2021 10:54-0500 Body height [address] IRENE BARRAZA MD [facility] 05-28-2021 10:54-0500 Body temperature 98.42 [degF] DR IRENE BARRAZA MD [facility] 05-28-2021 10:54-0500 Body weight 93.[address] IRENE BARRAZA MD [facility] 05-28-2021 10:54-0500 Diastolic blood pressure 80 mm[Hg] DR IRENE BARRAZA MD [facility] 05-28-2021 10:54-0500 Heart rate 70 /min DR IRENE BARRAZA MD [facility] 05-28-2021 10:54-0500 Systolic blood pressure 147 mm[Hg] DR IRENE BARRAZA MD [facility] 05-17-2021 13:48-0500 Body height [address] IRENE BARRAZA MD [facility] 05-17-2021 13:48-0500 Body weight 93.[address] IRENE BARRAZA MD [facility] 05-17-2021 13:48-0500 Body weight 36.64 kg/m2 DR IRENE BARRAZA MD [facility] 05-17-2021 13:48-0500 diastolic 74 mm[Hg] DR IRENE BARRAZA MD [facility] 05-17-2021 13:48-0500 Heart rate 75 /min DR IRENE BARRAZA MD [facility] 05-17-2021 13:48-0500 systolic 142 mm[Hg] DR IRENE BARRAZA MD [facility] Encounters Encounter Date Encounter Type Care Provider Facility Start: 11-03-2024 End: 11-03-2024 Office outpatient visit 25 minutes Sheri Hutchins MD Work Phone: [facility] Comment on above: Controlled type 2 di abetes mellitus without complication, without long-term current use of insulin (HCC) (Primary Dx); Recurrent deep vein thrombosis (DVT) (HCC); Essential hypertension; Other specified disorders of urethra; Disorder of kidney and ureter; GERD without esophagitis; Reactive depression; Class 2 obesity due to excess calories with body mass index (BMI) of 35.0 to 35.9 in adult, unspecified whether serious comorbidity present; Psoriasis; Mixed hyperlipidemia; 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 Start: 09-26-2024 End: 09-26-2024 Office outpatient visit 15 minutes Marianna Finnegan APRN.CNS Work Phone: [facility] Comment on above: Sinobronchitis (Prim hseryl Dx) Start: 09-26-2024 End: 09-26-2024 ambulatory SHERI HUTCHINS Facility:[facility] Start: 09-22-2024 End: 09-22-2024 ambulatory Abhi Ellison Facility:[facility] Start: 09-22-[address] Abhi Ellison MD -[facility] Start: 09-21-2024 End: 09-21-2024 ambulatory SHERI HUTCHINS Facility:[facility] Start: 09-21-2024 End: 09-21-2024 Office outpatient visit 25 minutes Alexandrea Ace PA-C Work Phone: [facility] Comment on above: Acute laryngitis (Pr imary Dx); Viral illness Start: 09-21-2024 End: 09-21-2024 ambulatory SHERI HUTCHINS Facility:[facility] Start: 07-29-2024 End: 07-29-2024 Patient encounter procedure Beth ZARAGOZA -[facility] Work Phone: Start: 07-29-2024 End: 07-29-2024 ambulatory Sheri Hutchins Facility:[facility] Start: 07-22-2024 End: 07-22-2024 Telephone encounter Lidia Low Research Coordinator Ophthalmology Comment on above: Research ([facility] IRB 2 [id number]) Start: 07-15-2024 End: 07-15-2024 Telephone encounter Lidia Low Research Coordinator Ophthalmology Comment on above: Research ([facility] IRB 2 [id number]) Start: 07-07-2024 End: 07-07-2024 Patient encounter procedure Chelo Beckman FREIGHT RATE CLERK- -[facility] Work Phone: Start: 07-07-2024 End: 07-07-2024 ambulatory Chelo Beckman NP Facility:[facility] Start: 06-22-2024 End: 06-22-2024 ambulatory SHERI HUTCHINS Facility:[facility] Start: 06-22-2024 End: 06-22-2024 Patient encounter procedure Mckenzie Zabala MD Work Phone: Ophthalmology Comment on above: Dry eye syndrome of both eyes (Primary Dx) Start: 06-14-2024 End: 06-14-2024 ambulatory Rommel Win PT Work Phone: [facility] Comment on above: Gait instability (Pr imary Dx); Frequent falls Start: 06-09-2024 End: 06-09-2024 Refill Sheri Hutchins MD Work Phone: [facility] Comment on above: Refill Request (Gluc ose test strips-to [facility]) Start: 06-02-2024 End: 06-02-2024 ambulatory Rommel Win PT Work Phone: [facility] Comment on above: Frequent falls (Prim sheryl Dx); Gait instability Start: 05-23-2024 End: 05-23-2024 ambulatory SHERI HUTCHINS Facility:[facility] Start: 05-23-2024 End: 05-23-2024 ambulatory Rommel Win PT Work Phone: [facility] Comment on above: Frequent falls (Prim sheryl Dx); Gait instability Start: 05-23-2024 End: 05-23-2024 Subsequent hospital visit by physician Screen Mammo [facility] Comment on above: Encounter for screen ing mammogram for breast cancer [Z12.31] Start: 05-16-2024 End: 05-16-2024 Refill Sheri Hutchins MD Work Phone: [facility] Comment on above: Refill Request Start: 05-05-2024 End: 05-05-2024 ambulatory [facility] Facility:[facility] Start: 04-25-2024 End: 04-25-2024 Office outpatient visit 15 minutes Sheri Hutchins MD Work Phone: [facility] Comment on above: Frequent falls (Prim sheryl Dx); Gait instability; Contusion of left knee, initial encounter; S/P total knee replacement, left; History of recurrent deep vein thrombosis (DVT) Start: 04-25-2024 End: 04-25-2024 ambulatory SHERI Sung JORGENSENAMP Facility:[facility] Start: 03-25-2024 End: 03-25-2024 ambulatory Sheri D Yin Facility:[facility] Start: 03-22-2024 End: 03-22-2024 [facility] Start: 03-22-2024 End: 03-22-2024 ambulatory [facility] Start: 03-15-2024 End: 03-16-2024 [facility] Facility:[facility] Start: 03-11-2024 End: 03-11-2024 Office outpatient visit 15 minutes Sheri Hutchins MD Work Phone: [facility] Comment on above: Acute deep vein thro mbosis (DVT) of other specified vein of left lower extremity (HCC) (Primary Dx); Left leg swelling; Gross hematuria; Anemia, unspecified type; Recurrent acute deep vein thrombosis (DVT) of lower extremity, unspecified laterality (HCC); Controlled type 2 diabetes mellitus without complication, without long-term current use of insulin (HCC); Presence of IVC filter; Acute cystitis with hematuria Start: 03-11-2024 End: 03-11-2024 ambulatory SHERI HUTCHINS Facility:[facility] Start: 03-02-2024 ambulatory Shelli Hernandez Facility :[facility] Start: 02-25-2024 End: 02-25-2024 Telephone encounter Sheri Hutchins MD Work Phone: [facility] Comment on above: Release Of Medical R ecords Start: 02-23-2024 End: 02-24-2024 ambulatory Vicente Chandler Facility:[facility] Start: 02-20-2024 End: 02-23-2024 Telephone encounter Sheri Hutchins MD Work Phone: [facility] Comment on above: Patient Update Start: 02-17-2024 End: 02-17-2024 ambulatory MCKENZIE ZABALA Facility:[facility] Start: 02-17-2024 End: 02-17-2024 Patient encounter procedure Mckenzie Zabala MD Work Phone: Ophthalmology Comment on above: Dry eye syndrome of both eyes (Primary Dx) Start: 02-16-2024 End: 02-16-2024 ambulatory SHERI HUTCHINS Facility:[facility] Start: 02-16-2024 End: 02-16-2024 Patient encounter procedure Jack Lawler APRN.CNP Work Phone: [facility] Comment on above: Acute deep vein thro mbosis (DVT) of other specified vein of left lower extremity (HCC) (Primary Dx); Recurrent acute deep vein thrombosis (DVT) of left lower extremity (HCC); Gross hematuria; Clotting disorder (HCC); Encounter for therapeutic drug monitoring Start: 02-14-2024 End: 02-14-2024 Emergency department patient visit Sheri Hutchins Facility:[facility] Start: 02-14-2024 End: 02-14-2024 ambulatory Dima Augustine Facility:[facility] Start: 02-13-2024 End: 02-13-2024 Emergency department patient visit Dima Augustine Facility:[facility] Start: 02-07-2024 End: 02-07-2024 Emergency department patient visit Dheeraj Bloom Facility:[facility] Start: 02-07-2024 End: 02-07-2024 ambulatory Gabi Salvador RN NURSE SUBSTANCE ADDICTION COORDINATOR Comment on above: Dizziness Start: 01-18-2024 End: 01-26-2024 Telephone encounter Sheri Hutchins MD Work Phone: [facility] [place] Comment on above: Pharmacy Call Start: 12-25-2023 End: 12-25-2023 ambulatory [facility] Work Phone: [facility] Comment on above: Spirometry Start: 12-25-2023 End: 12-25-2023 Patient encounter procedure Pulm Lab [facility] Work Phone: [facility] Start: 11-19-2023 End: 11-19-2023 Subsequent hospital visit by physician [facility] Work Phone: Radiology Comment on above: Chronic cough [R05.3 ] Start: 11-19-2023 End: 11-19-2023 ambulatory SHERI HUTCHINS Facility:[facility] Start: 11-19-2023 End: 11-19-2023 Office outpatient visit 25 minutes Sheri Hutchins MD Work Phone: [facility] [place] Comment on above: Controlled type 2 di abetes mellitus without complication, without long-term current use of insulin (HCC) (Primary Dx); Urinary incontinence without sensory awareness; Mixed hyperlipidemia; Essential hypertension; Reactive depression; Urinary urgency; Dysuria; Chronic cough; History of bronchitis; Encounter for screening mammogram for breast cancer; Encounter for long-term current use of medication Start: 10-31-2023 End: 10-31-2023 Office outpatient visit 25 minutes Robin Quinonez APRN.CNP Work Phone: [facility] Comment on above: Acute cough (Primary Dx); Lower resp. tract infection Start: 06-12-2023 Telephone encounter Sheri segundo MD Work Phone: [facility] Comment on above: [employer] rgy alerts (2) Start: 06-06-2023 Refill Sheri echavarria MD Work Phone: [facility] Start: 04-27-2023 Telephone encounter Sheri segundo MD Work Phone: [facility] Comment on above: Cough Start: 04-19-2023 Telephone encounter Edwina Winslow Cher DANIELSONREPAIR TECHNICIAN Work Phone: [facility] Comment on above: Results Start: 04-17-2023 End: 04-17-2023 Subsequent hospital visit by physician [facility] Work Phone: Radiology Comment on above: Wheezing [R06.2] Start: 04-17-2023 End: 04-17-2023 Patient encounter procedure Helene Santamaria PA-C Work Phone: [facility] Comment on above: Urinary frequency (P rimary Dx); Bronchitis; Vaginal itching Start: 04-15-2023 Telephone encounter Sheri segundo MD Work Phone: [facility] [place] Comment on above: Mammogram order Start: 03-18-2023 ambulatory JOANNA DOAN Facility:[facility] Start: 01-20-2023 Refill Sheri echavarria MD Work Phone: [facility] Comment on above: Refill Request Start: 12-30-2022 Refill Sheri echavarria MD Work Phone: [facility] [place] Comment on above: Refill Request Start: 12-10-2022 Refill Jack BURRISREPAIR TECHNICIAN Work Phone: [facility] Comment on above: Refill Request Start: 11-19-2022 End: 11-19-2022 Patient encounter procedure Joanna Doan PA-C Work Phone: General Surgery Comment on above: Colon cancer screeni ng Start: 10-22-2022 End: 10-22-2022 Office outpatient visit 25 minutes Sheri Hutchins MD Work Phone: [facility] [place] Comment on above: Controlled type 2 di abetes mellitus without complication, without long-term current use of insulin (HCC) (Primary Dx); Essential hypertension; Mixed hyperlipidemia; Hyperuricemia; Colon cancer screening; Recurrent major depressive disorder, in partial remission (HCC); Class 1 obesity due to excess calories with body mass index (BMI) of 34.0 to 34.9 in adult, unspecified whether serious comorbidity present Start: 06-13-2022 Refill Sheri echavarria MD Work Phone: [facility] Comment on above: Refill Request Start: 04-17-2022 Documentation procedure Mammog mateo Coordinator [facility] Start: 04-17-2022 Letter encounter Mammography Coordinator [facility] Department Start: 04-17-2022 End: 04-17-2022 Subsequent hospital visit by physician Screen M[facility] Comment on above: Screening mammogram for breast cancer [Z12.31] Start: 03-13-2022 Refill Sheri echavarria MD Work Phone: [facility] [place] Comment on above: Refill Request Start: 03-10-2022 End: 03-10-[address] Sheri Hutchins Work Phone: [facility] Work Phone: Start: 03-10-2022 End: 03-10-[address] Sheri Hutchins Work Phone: [facility] Start: 02-24-2022 Telephone encounter Sheri segundo MD Work Phone: [facility] [place] Comment on above: Orders Start: 01-06-2022 End: 01-06-2022 Office outpatient visit 40 minutes Sheri Hutchins MD Work Phone: [facility] [place] Comment on above: Cellulitis of left u pper extremity (Primary Dx); Controlled type 2 diabetes mellitus without complication, without long-term current use of insulin (HCC); Essential hypertension; Class 2 obesity due to excess calories with body mass index (BMI) of 36.0 to 36.9 in adult, unspecified whether serious comorbidity present Start: 01-04-2022 Non-patient / Non-visit Dr. Gisela Hutchins Work Phone: [facility] Start: 01-04-2022 End: 01-04-[address] Sheri Hutchins Work Phone: [facility] Start: 01-03-2022 End: 01-03-2022 Emergency department patient visit [facility] Start: 12-31-2021 Refill Sheri echavarria MD Work Phone: [facility] [place] Comment on above: Refill Request (SEE RX NOTES - NEW PHARMACY) Start: 11-28-2021 Telephone encounter Sheri segundo MD Work Phone: [facility] [place] Comment on above: Medication Question Start: 11-05-2021 End: 11-05-2021 Office outpatient visit 25 minutes Sheri Hutchins MD Work Phone: [facility] [place] Comment on above: Controlled type 2 di abetes mellitus without complication, without long-term current use of insulin (HCC) (Primary Dx); Essential hypertension; Mixed hyperlipidemia; Recurrent major depressive disorder, in partial remission (HCC); Class 2 obesity due to excess calories with body mass index (BMI) of 36.0 to 36.9 in adult, unspecified whether serious comorbidity present; Encounter for long-term current use of medication Start: 11-05-2021 Orders Only Sheri echavarria MD Work Phone: [facility] [place] Comment on above: Controlled type 2 di abetes mellitus without complication, without long-term current use of insulin (HCC) (Primary Dx); Essential hypertension; Hyperuricemia; Encounter for long-term current use of medication Start: 10-14-2021 Telephone encounter Sheri segundo MD Work Phone: [facility] Comment on above: Patient Update (posi tive covid antigen test / home) Start: 05-28-2021 End: 05-29-[address] IRENE BARRAZA MD [facility] Start: 05-17-2021 End: 05-17-[address] IRENE BARRAZA MD [facility] Procedures Date Procedure Procedure Detail Performing Clinician Start: 09-22-2024 D-dimer assay, quantitative Dr. Sheri segundo MD Work Phone: Comment on above: NORMAL D-Dimer level (<0.50) indicates n o DVT or PE. Start: 09-22-[address] Sheri Hutchins MD Work Phone: Start: 09-21-2024 STREP A MOLECULAR (POC) Alexandrea Valenzuela Work Phone: Start: 05-05-2024 Measurement of renal function Dr. Sheri gleason MD Work Phone: Comment on above: GFR Calc Start: 02-17-2024 Clsr lacrimal punctum plug each Mckenzie ly MD Work Phone: Start: 12-25-2023 Nitric oxide gas determination Sheri Hutchins MD Work Phone: Start: 12-25-2023 Brncdilat rspse spmtry pre&post-brncdilat admn Sheri Hutchins MD Work Phone: Start: 11-19-2023 Radiologic exam chest 2 views Sheri segundo MD Work Phone: Start: 11-19-2023 Culture bacterial quanttative colony count urine Sheri Hutchins MD Work Phone: Start: 11-19-2023 Urnls dip stick/tablet rgnt auto w/o microscopy Sheri Hutchins MD Work Phone: Start: 04-17-2023 Radiologic exam chest 2 views Helene Razo-C Work Phone: Start: 04-17-2023 Urnls dip stick/tablet rgnt auto w/o microscopy Helene Santamaria PA-C Work Phone: Start: 03-18-2023 Colonoscopy Sheri Hutchins MD Work Phone: Start: 04-17-2022 GENEVA SCREENING W SABAS Kwon Older HISTORY CARD CLERK.REPAIR TECHNICIAN Work Phone: Start: 04-17-2022 Mammography Mammography Coordinator Start: 03-10-2022 MRI of joint of lower extremity Dr. Sheri Hutchins Work Phone: Start: 05-28-2021 Reverse prosthetic total arthroplasty of shoulder DR IRENE BARRAZA MD Comment on above: Left Start: 02-15-2021 Mammography Sheri Hutchins MD Work Phone: Start: 01-04-[address] IRENE BARRAZA MD Comment on above: LEFT ROBOTIC ASSISTED Start: 12-22-2012 Colonoscopy Sheri Hutchins MD Work Phone: Start: 12-08-2005 H/O: artificial joint Knee joint replacement by other means Sheri Hutchins MD Work Phone: Appendectomy DR IRENE Baker MD Arthroplasty of knee DR DAYANA BARRAZA MD Comment on above: ZACH TKA Bilateral trigger fi ngers (disorder) DR IRENE BARRAZA MD Colonoscopy DR IRENE Baker MD Decompression of median nerve DR IRENE BARRAZA MD Comment on above: RIGHT Discectomy and total lumbar disc arthroplasty using anterior approach DR IRENE BARRAZA MD Esophagogastroduoden oscopy gastric outlet reduction DR IRENE BARRAZA MD Hysterectomy DR IRENE Baker MD Osteoarthrosis of th e carpometacarpal joint of the thumb (disorder) DR IRENE BARRAZA MD Prosthetic arthropla sty of shoulder DR IRENE BARRAZA MD Comment on above: RIGHT Prosthetic arthroplasty of the hip DR IRENE BARRAZA MD Comment on above: ZACH TONY Tonsillectomy DR IRENE RAMIREZ MD Plan of Treatment Date Care Activity Detail Author Start: 03-18-2033 Colonoscopy Colonoscopy [facility] Start: 03-18-2033 Colorectal Cancer Screening Colorectal Cancer Screening [facility] Start: 03-18-2033 Screening for malign ant neoplasm of colon [facility] Start: 2028 RSV Vaccine (1 - 1-d ose 75+ series) RSV Vaccine (1 - 1-dose 75+ series) [facility] Start: 01-22-2028 Urine microalbumin profile [facility] Start: 11-07-2025 End: 11-07-2025 Patient encounter procedure 11/07/2025 3:40 PM EDT Office Visit [facility] [place] [address] [place], [place] [id number] Sheri Hutchins MD [address] [place], [place] [phone] 6 month follow up [facility] Comment on above: 6 month follow up Start: 11-03-2025 Annual PCP Team Coke Oven Patcher kiera Disease Visit Annual PCP Team Chronic Disease Visit [facility] Start: 09-26-2025 BP Controlled (<130/80) BP Controlle d (<130/80) [facility] Start: 09-21-2025 BP Controlled (<130/80) BP Controlle d (<130/80) [facility] Start: 09-21-2025 Hepatitis B surface antibody level LDL Cholesterol [facility] Start: 05-23-2025 Screening for malign ant neoplasm of breast Mammogram Screening [facility] Start: 04-25-2025 End: 04-25-2025 Patient encounter procedure 04/25/2025 3:20 PM EST Office Visit [facility] [place] [address] [place], [place] [phone] Sheri Hutchins MD [address] [place], [place] [phone] 6 month follow up [facility] Comment on above: 6 month follow up Start: 04-25-2025 Annual PCP Team [employer] Patcher kiera Disease Visit Annual PCP Team Chronic Disease Visit [facility] Start: 03-24-2025 Hemoglobin A1c measurement HbA1C [facility] Start: 03-11-2025 Annual PCP Team [employer] Patcher kiera Disease Visit Annual PCP Team Chronic Disease Visit [facility] Start: 03-11-2025 BP Controlled (<130/80) BP Controlle d (<130/80) [facility] Start: 02-15-2025 Annual PCP Team [employer] Oven Patcher kiera Disease Visit Annual PCP Team Chronic Disease Visit [facility] Start: 12-24-2024 Hepatitis B screening Urine Albumin:Creatinine Ratio [facility] Start: 12-24-2024 Hepatitis B surface antibody level LDL Cholesterol [facility] Start: 11-18-2024 Annual PCP Team [employer] O[employer] Patcher kiera Disease Visit Annual PCP Team Chronic Disease Visit [facility] Start: 11-18-2024 BP Controlled (<130/80) BP Controlle d (<130/80) [facility] Start: 10-19-2024 End: 10-19-2024 Patient encounter procedure 10/19/2024 3:40 PM EDT Office Visit [facility] [address] [place] [address] Sheri Hutchins MD [address] [place] [address] FOLLOW UP [facility] [place] Comment on above: FOLLOW UP Start: 09-22-2024 [facility] Start: 06-30-2024 End: 06-30-2024 ambulatory 06/30/2024 2:15 PM EST OT/PT/Speech Visit [facility] [address] [place] [phone] Rommel Win, PT [address] [place], [place] [phone] R29.6 (ICD-10-CM) - Frequent falls [facility] Comment on above: R29.6 (ICD-10-CM) - Frequent falls Start: 06-28-2024 End: 06-28-2024 ambulatory 06/28/2024 2:15 PM EST OT/PT/Speech Visit [facility] [address] [place] [address] Rommel Win, PT [address] [facility] [place] [address] R29.6 (ICD-10-CM) - Frequent falls [facility] Comment on above: R29.6 (ICD-10-CM) - Frequent falls Start: 06-26-2024 Hemoglobin A1c measurement HbA1C [facility] Start: 06-24-2024 End: 06-24-2024 ambulatory 06/24/2024 3:30 PM EST OT/PT/Speech Visit [facility] [address] [place] [address] Elena Coleman, DIRECTOR OF OPERATIONS FOR THERAPY [address] [place] [address] GAIT TRAINING [facility] Comment on above: GAIT TRAINING Start: 06-22-2024 End: 06-22-2024 Patient encounter procedure 06/22/2024 2:15 PM EST Office Visit [facility] [address] [place] [address] Mckenzie Zabala MD [address] [place] [address] 3 MTH F/U Ophthalmology Comment on above: 3 MTH F/U Start: 06-20-2024 End: 06-20-2024 ambulatory 06/20/2024 2:15 PM EST OT/PT/Speech Visit [facility] [address] [place] [address] Rommel Win, PT [address] [facility] [place] [address] Dx: Frequent falls [R29.6 (ICD-10-CM)]; Gait instability [R26.81 (ICD-10-CM)] [facility] Comment on above: Dx: Frequent falls [ R29.6 (ICD-10-CM)]; Gait instability [R26.81 (ICD-10-CM)] Start: 06-16-2024 End: 06-16-2024 ambulatory 06/16/2024 3:00 PM EST OT/PT/Speech Visit [facility] [address] [place] [address] Rommel Win, PT [address] [place], [place] [phone] Dx: Frequent falls [R29.6 (ICD-10-CM)]; Gait instability [R26.81 (ICD-10-CM)] [facility] Comment on above: Dx: Frequent falls [ R29.6 (ICD-10-CM)]; Gait instability [R26.81 (ICD-10-CM)] Start: 06-14-2024 End: 06-14-2024 ambulatory 06/14/2024 2:15 PM EST OT/PT/Speech Visit [facility] [address] [place], [place] [phone] Rommel Win, PT [address] [place], [place] [phone] Dx: Frequent falls [R29.6 (ICD-10-CM)]; Gait instability [R26.81 (ICD-10-CM)] [facility] Comment on above: Dx: Frequent falls [ R29.6 (ICD-10-CM)]; Gait instability [R26.81 (ICD-10-CM)] Start: 06-09-2024 End: 06-09-2024 ambulatory 06/09/2024 3:00 PM EST OT/PT/Speech Visit [facility] [address] [place], [place] [phone] Rommel Win, PT [address] [place] [address] Dx: Frequent falls [R29.6 (ICD-10-CM)]; Gait instability [R26.81 (ICD-10-CM)] [facility] Comment on above: Dx: Frequent falls [ R29.6 (ICD-10-CM)]; Gait instability [R26.81 (ICD-10-CM)] Start: 06-07-2024 End: 06-07-2024 ambulatory 06/07/2024 2:15 PM EST OT/PT/Speech Visit [facility] [address] [place] [address] Rommel Win, PT [address] [place], [place] [phone] Dx: Frequent falls [R29.6 (ICD-10-CM)]; Gait instability [R26.81 (ICD-10-CM)] [facility] Comment on above: Dx: Frequent falls [ R29.6 (ICD-10-CM)]; Gait instability [R26.81 (ICD-10-CM)] Start: 06-03-2024 End: 06-03-2024 Patient encounter procedure 06/03/2024 11:00 AM EST Office Visit [facility] [address] [place] [address] Sheri Hutchins MD [address] [place] [address] 6 month follow up-labs [facility] Comment on above: 6 month follow up-la bs Start: 06-02-2024 End: 06-02-2024 ambulatory 06/02/2024 3:00 PM EST OT/PT/Speech Visit [facility] [address] [place] [address] Rommel Win, PT [address] [place], [place] [phone] Dx: Frequent falls [R29.6 (ICD-10-CM)]; Gait instability [R26.81 (ICD-10-CM)] [facility] Comment on above: Dx: Frequent falls [ R29.6 (ICD-10-CM)]; Gait instability [R26.81 (ICD-10-CM)] Start: 05-30-2024 End: 05-30-2024 ambulatory 05/30/2024 4:30 PM EST OT/PT/Speech Visit [facility] [address] [place], [place] [phone] Abrannimishamarilou Elena, DIRECTOR OF OPERATIONS FOR THERAPY [address] [place], [place] [phone] Dx: Frequent falls [R29.6 (ICD-10-CM)]; Gait instability [R26.81 (ICD-10-CM)] [facility] Comment on above: Dx: Frequent falls [ R29.6 (ICD-10-CM)]; Gait instability [R26.81 (ICD-10-CM)] Start: 05-26-2024 End: 05-26-2024 ambulatory 05/26/2024 3:00 PM EST OT/PT/Speech Visit [facility] [address] [place], [place] [phone] Rommel Win, PT [address] [place], [place] [phone] Dx: Frequent falls [R29.6 (ICD-10-CM)]; Gait instability [R26.81 (ICD-10-CM)] [facility] Comment on above: Dx: Frequent falls [ R29.6 (ICD-10-CM)]; Gait instability [R26.81 (ICD-10-CM)] Start: 05-23-2024 End: 05-23-2024 Patient encounter procedure 05/23/2024 1:30 PM EST Appointment Mammogram [address] [place], [place] [phone] Encounter for screening mammogram for breast cancer [Z12.31] Mammogram Comment on above: Encounter for screen ing mammogram for breast cancer [Z12.31] Start: 05-23-2024 End: 05-23-2024 ambulatory 05/23/2024 12:15 PM EST OT/PT/Speech Visit [facility] [address] [place] [address] Rommel Win, PT [address] [place] [address] Frequent falls [R29.6] [facility] Comment on above: Frequent falls [R29. 6] Start: 05-22-2024 End: 12-18-2024 DBT Breast - bilateral screening GENEVA SCREENING W SABAS Radiology Routine Encounter for screening mammogram for breast cancer Expected: 05/22/2024 (Approximate), Expires: 12/18/2024 [facility] Comment on above: Expected: 05/22/2024 (Approximate), Expires: 12/18/2024 Start: 05-21-2024 Screening for malign ant neoplasm of breast Mammogram Screening [facility] Start: 05-18-2024 End: 05-18-2024 Patient encounter procedure 05/18/2024 1:30 PM EST Office Visit [facility] [address] [place] [address] Mckenzie Zabala MD [address] [place] [address] 3 MTH F/U Ophthalmology Comment on above: 3 MTH F/U Start: 05-11-2024 Advance Directive Discussion Advance Directive Discussion [facility] Start: 04-17-2024 Hepatitis B surface antibody level LDL Cholesterol [facility] Start: 03-04-2024 End: 03-04-2024 Patient encounter procedure 03/04/2024 11:30 AM EDT Office Visit Urology [address] [address] Cooper Mondragon MD [address] [place] [address] Gross hematuria [R31.0]; 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 De La Cruz Ophthalmology Comment on above: Cronic Superficial K eratitis :referral from [facility] Dr. De La Cruz Start: 02-16-2024 End: 05-17-2024 Antithrombin actual/normal in Platelet poor plasma by Chromogenic method [facility] Comment on above: Expected: 02/16/2024 , Expires: 05/17/2024 Start: 02-16-2024 End: 05-17-2024 Bacteria identified in Urine by Culture [facility] Comment on above: Expected: 02/16/2024 , Expires: 05/17/2024 Start: 02-16-2024 End: 05-17-2024 CBC W Auto Differential panel - Blood [facility] Comment on above: Expected: 02/16/2024 , Expires: 05/17/2024 Start: 02-16-2024 End: 05-17-2024 Comprehensive metabolic 2000 panel - Serum or Plasma [facility] Comment on above: Expected: 02/16/2024 , Expires: 05/17/2024 Start: 02-16-2024 End: 05-17-2024 PROTEIN C FUNCT [facility] Comment on above: Expected: 02/16/2024 , Expires: 05/17/2024 Start: 02-16-2024 End: 05-17-2024 PROTEIN S IMMUNO [facility] Comment on above: Expected: 02/16/2024 , Expires: 05/17/2024 Start: 02-16-2024 End: 05-17-2024 Urinalysis complete panel - Urine [facility] Work Phone: Comment on above: Expected: 02/16/2024 , Expires: 05/17/2024 Start: 01-10-2024 Covid-19 Vaccine () Covid-19 Vaccine () [facility] Start: 01-10-2024 Covid-19 Vaccine () Covid-19 Vaccine () [facility] Start: 01-10-2024 Influenza vaccination Influenza Vacc ine (#1) [facility] Start: 11-19-2023 End: 11-19-2023 Patient encounter procedure 11/19/2023 2:00 PM EDT Office Visit [facility] [place] [address] [place] [address] Sheri Hutchins MD [address] [place], [place] [phone] rescheduled from 11/03 4 Month follow up [facility] [place] Comment on above: rescheduled from 10/10 6 4 Month follow up Start: 10-23-2023 ANNUAL PCP TEAM APARTMENT GROUNDSKEEPER KIERA DISEASE VISIT ANNUAL PCP TEAM CHRONIC DISEASE VISIT [facility] Start: 10-17-2023 Hemoglobin A1c measurement HbA1C [facility] Start: 10-17-2023 Hemoglobin A1c/Hemoglobin.total in Blood HbA1C [facility] Start: 05-11-2023 Advance Directive Discussion Advance Directive Discussion [facility] Start: 04-22-2023 Hemoglobin A1c/Hemoglobin.total in Blood HBA1C [facility] Start: 04-17-2023 End: 07-17-2023 Bacteria identified in Urine by Culture [facility] Work Phone: Comment on above: Expected: 04/17/2023 , Expires: 07/17/2023 Start: 04-17-2023 Mammography [facility] Start: 04-17-2023 Screening for malign ant neoplasm of breast Mammogram Screening [facility] Start: 02-21-2023 End: 04-23-2023 ALBUMIN/CREAT RATIO RND UR ALBUMIN/CREAT RATIO RND UR Lab Routine Controlled type 2 diabetes mellitus without complication, without long-term current use of insulin (HCC) Expected: 02/21/2023 (Approximate), Expires: 04/23/2023 [facility] Work Phone: Comment on above: Expected: 02/21/2023 (Approximate), Expires: 04/23/2023 Start: 02-21-2023 End: 04-23-2023 CBC panel - Blood by Automated count CBC Lab Routine Controlled type 2 diabetes mellitus without complication, without long-term current use of insulin (HCC) Essential hypertension Expected: 02/21/2023 (Approximate), Expires: 04/23/2023 [facility] Work Phone: Comment on above: Expected: 02/21/2023 (Approximate), Expires: 04/23/2023 Start: 02-21-2023 End: 04-23-2023 Comprehensive metabolic 2000 panel - Serum or Plasma COMP METABOLIC PANEL Lab Routine Controlled type 2 diabetes mellitus without complication, without long-term current use of insulin (HCC) Essential hypertension Expected: 02/21/2023 (Approximate), Expires: 04/23/2023 [facility] Work Phone: Comment on above: Expected: 02/21/2023 (Approximate), Expires: 04/23/2023 Start: 02-21-2023 End: 04-23-2023 Hemoglobin A1c in Blood HGB A1C Lab Routine Controlled type 2 diabetes mellitus without complication, without long-term current use of insulin (HCC) Expected: 02/21/2023 (Approximate), Expires: 04/23/2023 [facility] Work Phone: Comment on above: Expected: 02/21/2023 (Approximate), Expires: 04/23/2023 Start: 02-21-2023 End: 04-23-2023 Lipid 1996 panel - Serum or Plasma LIPID PANEL BASIC Lab Routine Controlled type 2 diabetes mellitus without complication, without long-term current use of insulin (HCC) Mixed hyperlipidemia Expected: 02/21/2023 (Approximate), Expires: 04/23/2023 [facility] Work Phone: Comment on above: Expected: 02/21/2023 (Approximate), Expires: 04/23/2023 Start: 02-21-2023 End: 04-23-2023 Urate [Mass/volume] in Serum or Plasma URIC ACID BLOOD Lab Routine Hyperuricemia Expected: 02/21/2023 (Approximate), Expires: 04/23/2023 [facility] Work Phone: Comment on above: Expected: 02/21/2023 (Approximate), Expires: 04/23/2023 Start: 02-18-2023 Hepatitis B screening URINE ALBUMIN:CREATININE RATIO [facility] Start: 02-18-2023 Hepatitis B surface antibody level LDL CHOLESTEROL [facility] Start: 01-09-2023 Covid-19 Vaccine () Covid-19 Vaccine () [facility] Start: 01-09-2023 Influenza vaccination C [facility] Start: 01-06-2023 3 comp foot exam completed DIABETIC FOOT EXAM [facility] Start: 01-06-2023 ANNUAL PCP TEAM APARTMENT GROUNDSKEEPER KIERA DISEASE VISIT ANNUAL PCP TEAM CHRONIC DISEASE VISIT [facility] Start: 01-06-2023 BP CONTROLLED (<130/80) BP CONTROLLE D (<130/80) [facility] Start: 01-06-2023 COVID-19 VACCINE (3 - Booster for Moderna series) COVID-19 VACCINE (3 - Booster for Moderna series) [facility] Comment on above: Postponed from 06/19 (Declined at this time) Postponed from 03/14 (Declined at this time) Start: 01-06-2023 COVID-19 VACCINE (3 - Moderna series) COVID-19 VACCINE (3 - Moderna series) [facility] Comment on above: Postponed from 03/14 (Declined at this time) Start: 01-06-2023 Diabetic foot examination Diabetic Foot Exam [facility] Start: 12-22-2022 Colonoscopy COLONOSCOPY [facility] Start: 12-22-2022 COLORECTAL CANCER SCREENING COLORECTAL CANCER SCREENING [facility] Start: 11-05-2022 ANNUAL PCP TEAM APARTMENT GROUNDSKEEPER KIERA DISEASE VISIT ANNUAL PCP TEAM CHRONIC DISEASE VISIT [facility] Start: 11-05-2022 BP CONTROLLED (<130/80) BP CONTROLLE D (<130/80) [facility] Start: 08-19-2022 Hemoglobin A1c/Hemoglobin.total in Blood HBA1C [facility] Start: 07-25-2022 Glaucoma screening Dilated Retinal E xam [facility] Start: 07-25-2022 Hepatitis C antibody , confirmatory test DILATED RETINAL EXAM [facility] Start: 05-24-2022 ANNUAL PCP TEAM APARTMENT GROUNDSKEEPER KIERA DISEASE VISIT ANNUAL PCP TEAM CHRONIC DISEASE VISIT [facility] Start: 05-24-2022 BP CONTROLLED (<130/80) BP CONTROLLE D (<130/80) [facility] Start: 05-16-2022 Hepatitis B screening URINE ALBUMIN:CREATININE RATIO [facility] Start: 05-16-2022 Hepatitis B surface antibody level LDL CHOLESTEROL [facility] Start: 05-11-2022 ADVANCE DIRECTIVE DISCUSSION ADVANCE DIRECTIVE DISCUSSION [facility] Start: 05-07-2022 End: 07-07-2022 ALBUMIN/CREAT RATIO RND UR ALBUMIN/CREAT RATIO RND UR Lab Routine Controlled type 2 diabetes mellitus without complication, without long-term current use of insulin (HCC) Expected: 05/07/2022 (Approximate), Expires: 07/07/2022 [facility] Work Phone: Comment on above: Expected: 05/07/2022 (Approximate), Expires: 07/07/2022 Start: 05-07-2022 End: 07-07-2022 CBC panel - Blood by Automated count CBC Lab Routine Essential hypertension Expected: 05/07/2022 (Approximate), Expires: 07/07/2022 [facility] Work Phone: Comment on above: Expected: 05/07/2022 (Approximate), Expires: 07/07/2022 Start: 05-07-2022 End: 07-07-2022 Comprehensive metabolic 2000 panel - Serum or Plasma COMP METABOLIC PANEL Lab Routine Controlled type 2 diabetes mellitus without complication, without long-term current use of insulin (HCC) Essential hypertension Expected: 05/07/2022 (Approximate), Expires: 07/07/2022 [facility] Work Phone: Comment on above: Expected: 05/07/2022 (Approximate), Expires: 07/07/2022 Start: 05-07-2022 End: 07-07-2022 Hemoglobin A1c in Blood HGB A1C Lab Routine Controlled type 2 diabetes mellitus without complication, without long-term current use of insulin (HCC) Expected: 05/07/2022 (Approximate), Expires: 07/07/2022 [facility] Work Phone: Comment on above: Expected: 05/07/2022 (Approximate), Expires: 07/07/2022 Start: 05-07-2022 Hemoglobin A1c/Hemoglobin.total in Blood HBA1C [facility] Start: 05-07-2022 End: 07-07-2022 Lipid 1996 panel - Serum or Plasma LIPID PANEL BASIC Lab Routine Mixed hyperlipidemia Expected: 05/07/2022 (Approximate), Expires: 07/07/2022 [facility] Work Phone: Comment on above: Expected: 05/07/2022 (Approximate), Expires: 07/07/2022 Start: 02-15-2022 Mammography MAMMOGRAM [facility] Start: 01-09-2022 Influenza vaccination INFLUENZA (#1) [facility] Start: 01-03-2022 US.doppler Lower extremity vein [facility] Work Phone: Start: 12-17-2021 3 comp foot exam completed DIABETIC FOOT EXAM [facility] Start: 11-13-2021 Hemoglobin A1c/Hemoglobin.total in Blood HBA1C [facility] Start: 11-05-2021 End: 01-05-2022 CBC panel - Blood by Automated count [facility] Work Phone: Comment on above: Expected: 11/05/2021 , Expires: 01/05/2022 Start: 11-05-2021 End: 01-05-2022 Comprehensive metabolic 2000 panel - Serum or Plasma [facility] Work Phone: Comment on above: Expected: 11/05/2021 , Expires: 01/05/2022 Start: 11-05-2021 End: 01-05-2022 Hemoglobin A1c in Blood [facility] Work Phone: Comment on above: Expected: 11/05/2021 , Expires: 01/05/2022 Start: 11-05-2021 End: 01-05-2022 Magnesium [Mass/volume] in Serum or Plasma [facility] Work Phone: Comment on above: Expected: 11/05/2021 , Expires: 01/05/2022 Start: 11-05-2021 End: 01-05-2022 Urate [Mass/volume] in Serum or Plasma [facility] Work Phone: Comment on above: Expected: 11/05/2021 , Expires: 01/05/2022 Start: 09-07-2021 BP CONTROLLED (<130/80) BP CONTROLLE D (<130/80) [facility] Start: 06-19-2021 COVID-19 VACCINE (3 - Booster for Moderna series) COVID-19 VACCINE (3 - Booster for Moderna series) [facility] Start: 05-11-2021 ADVANCE DIRECTIVE DISCUSSION ADVANCE DIRECTIVE DISCUSSION [facility] Start: 03-14-2021 Covid-19 Vaccine (3 - Moderna series) Covid-19 Vaccine (3 - Moderna series) [facility] Start: 02-25-2020 PNEUMOCOCCAL: 65+ (3 - PPSV23 if available, else PCV20) PNEUMOCOCCAL: 65+ (3 - PPSV23 if available, else PCV20) [facility] Start: 02-25-2020 PNEUMOCOCCAL: 65+ (3 - PPSV23 or PCV20) PNEUMOCOCCAL: 65+ (3 - PPSV23 or PCV20) [facility] Start: 04-10-2018 Medicare Annual Wellness Visit Medicare Annual Wellness Visit [facility] Start: 2013 Hepatitis B Vaccine (1 of 3 - Risk 3-dose series) Hepatitis B Vaccine (1 of 3 - Risk 3-dose series) [facility] Start: 2013 RSV Vaccine (1 - 1-d ose 60+ series) RSV Vaccine (1 - 1-dose 60+ series) [facility] Start: 1998 COLOGUARD (FIT-DNA) COLOGUARD (FIT-D NA) [facility] Start: [address] [facility] Start: 1998 FECAL OCCULT BLOOD FECAL OCCULT BLOO D [facility] Start: 1998 Screening for malign ant neoplasm of colon [facility] Start: 1998 SIGMOIDOSCOPY SIGMOIDOSCOPY [facility] Start: 1971 Anxiety Screening Anxiety Screening [facility] End: 11-18-2024 CBC panel - Blood by Automated count COMPLETE BLOOD COUNT Lab Routine Controlled type 2 diabetes mellitus without complication, without long-term current use of insulin (HCC) Essential hypertension Encounter for long-term current use of medication Every 4 months for 90 Occurrences starting 11/19/2023 until 11/18/2024, 1 completed [facility] Comment on above: Every 4 months for 9 0 Occurrences starting 11/19/2023 until 11/18/2024, 1 completed End: 11-03-2025 CBC panel - Blood by Automated count COMPLETE BLOOD COUNT Lab Routine Essential hypertension Encounter for therapeutic drug monitoring Every 6 months for 90 Occurrences starting 11/03/2024 until 11/03/2025 [facility] Comment on above: Every 6 months for 9 0 Occurrences starting 11/03/2024 until 11/03/2025 End: 11-18-2024 Comprehensive metabolic 2000 panel - Serum or Plasma COMPREHENSIVE METABOLIC PANEL Lab Routine Controlled type 2 diabetes mellitus without complication, without long-term current use of insulin ([facility]) Essential hypertension Encounter for long-term current use of medication Every 4 months for 90 Occurrences starting 11/19/2023 until 11/18/2024, 1 completed [facility] Comment on above: Every 4 months for 9 0 Occurrences starting 11/19/2023 until 11/18/2024, 1 completed End: 11-03-2025 Comprehensive metabolic 2000 panel - Serum or Plasma COMPREHENSIVE METABOLIC PANEL Lab Routine Essential hypertension Encounter for therapeutic drug monitoring Every 6 months for 90 Occurrences starting 11/03/2024 until 11/03/2025 [facility] Work Phone: Comment on above: Every 6 months for 9 0 Occurrences starting 11/03/2024 until 11/03/2025 DBT Breast - bilater al screening GENEVA SCREENING W [facility] Radiology Routine Encounter for screening mammogram for breast cancer 05/23/2024 1:49 PM EST [facility] Work Phone: End: 05-17-2024 FACTOR V LEIDEN/PCR FACTOR V LEIDEN/PCR Lab Routine Acute deep vein thrombosis (DVT) of other specified vein of left lower extremity (HCC) Clotting disorder (HCC) 1 Occurrences starting 02/16/2024 until 05/17/2024 [facility] Comment on above: 1 Occurrences starti ng 02/16/2024 until 05/17/2024 FACTOR V LEIDEN/PCR FACTOR V LEI DEN/PCR Lab Routine Acute deep vein thrombosis (DVT) of other specified vein of left lower extremity (HCC) Clotting disorder (HCC) 02/16/2024 9:08 AM EDT [facility] End: 11-18-2024 Hemoglobin A1c in Blood HEMOGLOBIN A1C Lab Routine Controlled type 2 diabetes mellitus without complication, without long-term current use of insulin ([facility]) Encounter for long-term current use of medication Every 4 months for 90 Occurrences starting 11/19/2023 until 11/18/2024, 1 completed [facility] Comment on above: Every 4 months for 9 0 Occurrences starting 11/19/2023 until 11/18/2024, 1 completed End: 11-03-2025 Hemoglobin A1c in Blood HEMOGLOBIN A1C Lab Routine Encounter for therapeutic drug monitoring Every 6 months for 90 Occurrences starting 11/03/2024 until 11/03/2025 [facility] Comment on above: Every 6 months for 9 0 Occurrences starting 11/03/2024 until 11/03/2025 End: 11-18-2024 Lipid 1996 panel - Serum or Plasma LIPID PANEL BASIC Lab Routine Controlled type 2 diabetes mellitus without complication, without long-term current use of insulin ([facility]) Mixed hyperlipidemia Encounter for long-term current use of medication Every 4 months for 90 Occurrences starting 11/19/2023 until 11/18/2024, 1 completed [facility] Comment on above: Every 4 months for 9 0 Occurrences starting 11/19/2023 until 11/18/2024, 1 completed End: 11-03-2025 Lipid 1996 panel - Serum or Plasma LIPID PANEL, FASTING Lab Routine Encounter for therapeutic drug monitoring Mixed hyperlipidemia Every 6 months for 90 Occurrences starting 11/03/2024 until 11/03/2025 [facility] Comment on above: Every 6 months for 9 0 Occurrences starting 11/03/2024 until 11/03/2025 End: 11-18-2024 LIPID PANEL, NONFASTING LIPID PANEL, NONFASTING Lab Routine Controlled type 2 diabetes mellitus without complication, without long-term current use of insulin ([facility]) Mixed hyperlipidemia Encounter for long-term current use of medication Every 4 months for 90 Occurrences starting 11/19/2023 until 11/18/2024 [facility] Comment on above: Every 4 months for 9 0 Occurrences starting 11/19/2023 until 11/18/2024 End: 11-18-2024 Magnesium [Mass/volume] in Serum or Plasma MAGNESIUM Lab Routine Controlled type 2 diabetes mellitus without complication, without long-term current use of insulin (HCC) Encounter for long-term current use of medication Every 4 months for 90 Occurrences starting 11/19/2023 until 11/18/2024, 1 completed [facility] Work Phone: Comment on above: Every 4 months for 9 0 Occurrences starting 11/19/2023 until 11/18/2024, 1 completed End: 11-03-2025 Magnesium [Mass/volume] in Serum or Plasma MAGNESIUM Lab Routine Encounter for therapeutic drug monitoring Every 6 months for 90 Occurrences starting 11/03/2024 until 11/03/2025 [facility] Comment on above: Every 6 months for 9 0 Occurrences starting 11/03/2024 until 11/03/2025 End: 03-26-2023 GENEVA SCREENING W SABAS GEN[facility] SCREENING [facility] Radiology Routine Screening mammogram for breast cancer 1 Occurrences starting 03/01/2022 until 03/26/2023 [facility] Work Phone: Comment on above: 1 Occurrences starti ng 03/01/2022 until 03/26/2023 End: 05-14-2024 GENEVA SCREENING W SABAS GENEVA SCREENING [facility] Radiology Routine Screening mammogram for breast cancer 1 Occurrences starting 04/16/2023 until 05/14/2024 [facility] Work Phone: Comment on above: 1 Occurrences starti ng 04/16/2023 until 05/14/2024 Patient Education Cellulitis Dc ED Deep Vein Thrombosis (DVT) [facility] Work Phone: Patient referral [facility] Work Phone: SPIROMETRY - BASELIN E AND POST DILATOR SPIROMETRY - BASELINE AND POST DILATOR PFT Routine Chronic cough History of bronchitis 12/25/2023 12:41 PM EDT [facility] Work Phone: UA DIP, URINE (POC) UA DIP, URIN E (POC) Lab Routine Urinary urgency Urinary incontinence without sensory awareness Dysuria Ordered: 11/19/2023 [facility] Comment on above: Ordered: 11/19/2023 End: 11-29-2024 XR Chest PA and Lateral XR CHEST 2V FRONTAL/LAT Radiology STAT Acute cough 1 Occurrences starting 10/31/2023 until 11/29/2024 [facility] Work Phone: Comment on above: 1 Occurrences starti ng 10/31/2023 until 11/29/2024 [facility] Immunizations Immunization Date Immunization Notes Care Provider Avani mane 12-31-2022 influenza, injectabl e, quadrivalent, preservative free Dr. Sheri Hutchins MD Work Phone: [facility] 12-31-2022 influenza virus vacc ine, unspecified formulation Pulm Wstr Work Phone: [facility] 01-06-2022 influenza (aIIV4) vaccine, age 65+ yr, quadrivalent, PF (FLUAD QUAD) Joanna Doan PA-C Work Phone: [facility] 01-06-2022 influenza, injectabl e, quadrivalent, contains preservative Sheri Hutchins MD Work Phone: [facility] Work Phone: 01-06-2022 influenza, injectabl e, quadrivalent, preservative free Dr. Sheri Hutchins MD Work Phone: [facility] 01-06-2022 pneumococcal (PCV20) vaccine, 20 valent (PREVNAR 20) Joanna Doan PA-C Work Phone: [facility] 01-06-2022 influenza virus vacc ine, unspecified formulation Sheri Hutchins MD Work Phone: [facility] 01-17-2021 influenza (HD-IIV4) vaccine, age 65+ yr, high dose, quadrivalent, PF (FLUZONE HIGH-DOSE) Joanna Doan PA-C Work Phone: [facility] 01-17-2021 influenza virus vacc ine, unspecified formulation DR IRENE BARRAZA MD [facility] 01-17-2021 influenza, high dose seasonal, preservative-free Sheri Hutchins MD Work Phone: [facility] Work Phone: 01-17-2021 SARS-CoV-2 (COVID-19 ) mRNA-[address] IRENE BARRAZA MD [facility] 12-20-2020 SARS-CoV-2 (COVID-19 ) mRNA-[address] IRENE BARRAZA MD [facility] 05-24-[address] IRENE BARRAZA MD [facility] 02-10-2020 influenza (aIIV4) vaccine, age 65+ yr, quadrivalent, PF (FLUAD QUAD) Joanna Doan PA-C Work Phone: [facility] 02-10-2020 influenza virus vacc ine, unspecified formulation DR IRENE BARRAZA MD [facility] 02-10-2020 influenza, high dose seasonal, preservative-free Sheri Hutchins MD Work Phone: [facility] Work Phone: 02-10-2020 influenza, injectabl e, quadrivalent, preservative free Dr. Sheri Hutchins MD Work Phone: [facility] 02-10-2020 influenza, seasonal, injectable Sheri Hutchins MD Work Phone: [facility] 02-10-[address] IRENE BARRAZA MD [facility] 01-27-2019 influenza nasal, unspecified formulation Joanna CANALESC Work Phone: [facility] 01-27-2019 influenza virus vacc ine, unspecified formulation DR IRENE BARRAZA MD [facility] 01-27-2019 influenza, high dose seasonal, preservative-free Sheri Hutchins MD Work Phone: [facility] Work Phone: 01-21-2018 influenza nasal, unspecified formulation Joanna Doan PA-C Work Phone: [facility] 01-21-2018 influenza virus vacc ine, unspecified formulation DR IRENE BARRAZA MD [facility] 01-21-2018 influenza, injectabl e, quadrivalent, preservative free Dr. Sheri Hutchins MD Work Phone: [facility] 01-21-2018 influenza, seasonal, injectable Sheri Hutchins MD Work Phone: [facility] Work Phone: 01-21-2018 tetanus toxoid, redu steffanie diphtheria toxoid, and acellular pertussis vaccine, adsorbed DR IRENE BARRAZA MD [facility] 01-01-2017 influenza nasal, unspecified formulation Joanna Doan PA-C Work Phone: [facility] 01-01-2017 influenza virus vacc ine, unspecified formulation DR IRENE BARRAZA MD [facility] 01-01-2017 influenza, injectabl e, quadrivalent, preservative free Dr. Sheri Hutchins MD Work Phone: [facility] 01-01-2017 influenza, seasonal, injectable Sheri Hutchins MD Work Phone: [facility] Work Phone: 02-09-2016 influenza nasal, unspecified formulation Joanna Doan PA-C Work Phone: [facility] 02-09-2016 influenza virus vacc ine, unspecified formulation DR IRENE BARRAZA MD [facility] 02-09-2016 influenza, injectabl e, quadrivalent, preservative free Dr. Sheri Hutchins MD Work Phone: [facility] 01-28-2016 influenza nasal, unspecified formulation Joanna Doan PA-C Work Phone: [facility] 01-28-2016 influenza virus vacc ine, unspecified formulation DR IRENE BARRAZA MD [facility] 01-28-2016 influenza, injectabl e, quadrivalent, preservative free Dr. Sheri Hutchins MD Work Phone: [facility] 03-29-2015 tetanus toxoid, redu steffanie diphtheria toxoid, and acellular pertussis vaccine, adsorbed DR IRENE BARRAZA MD [facility] 02-24-2015 influenza nasal, unspecified formulation Joanna Doan PA-C Work Phone: [facility] 02-24-2015 influenza virus vacc ine, unspecified formulation DR IRENE BARRAZA MD [facility] 02-24-2015 influenza, injectabl e, quadrivalent, preservative free Dr. Sheri Hutchins MD Work Phone: [facility] 02-24-2015 influenza, seasonal, injectable Sheri Hutchins MD Work Phone: [facility] 02-24-2015 pneumococcal polysaccharide vaccine, [address] IRENE BARRAZA MD [facility] 08-29-2014 pneumococcal conjuga te vaccine, [address] IRENE BARRAZA MD [facility] 02-16-2014 influenza virus vacc ine, unspecified formulation Sheri Hutchins MD Work Phone: [facility] 09-05-2013 zoster vaccine, live Sheri barry MD Work Phone: [facility] 02-07-2013 influenza virus vacc ine, unspecified formulation Sheri Hutchins MD Work Phone: [facility] 02-23-2012 influenza virus vacc ine, unspecified formulation Sheri Hutchins MD Work Phone: [facility] Work Phone: 03-05-2011 influenza virus vacc dima, unspecified formulation Sheri Hutchins MD Work Phone: [facility] 03-05-2011 pneumococcal polysaccharide vaccine, 23 valent Sheri Hutchins MD Work Phone: [facility] 02-15-2010 influenza virus vacc ine, unspecified formulation Sheri Hutchins MD Work Phone: [facility] Work Phone: 05-03-2009 tetanus toxoid, redu steffanie diphtheria toxoid, and acellular pertussis vaccine, adsorbed Sheri Hutchins MD Work Phone: [facility] Work Phone: 03-15-2008 influenza virus vacc ine, unspecified formulation Sheri Hutchins MD Work Phone: [facility] 03-18-2007 influenza virus vacc ine, unspecified formulation Sheri Hutchins MD Work Phone: [facility] Work Phone: 03-11-2006 influenza virus vacc ine, unspecified formulation Sheri Hutchins MD Work Phone: [facility] 01-09-2002 pneumococcal polysaccharide vaccine, 23 valent Sheri Hutchins MD Work Phone: [facility] Work Phone: 09-08-2000 diphtheria and tetan us toxoids, adsorbed for pediatric use Sheri Hutchins MD Work Phone: [facility] Work Phone: Payers Date Payer Category Payer Self-pay 2018 Private Health Insurance [facility] CHOICE PLUS [id number] 2018-Present [phone] [address] [place] [address] HMO [id number] 2018 Private Health Insurance [id number] 2018 Unknown [id number] 2018 [facility] ANTHEM ME DICARE SUPPLEMENT [id number] 2018 Unknown ANTHEM ANTHEM ME DICARE SUPPLEMENT [id number] 2018-Present [phone] [address] [place] [address] Indemnity [id number] 2018 Unknown ANTHEM ANTHEM ME DICARE SUPPLEMENT [id number] 2018-Present [phone] [address] [place] [address] Indemnity [id number] 2018 Medicare MEDICARE MEDICAR E A AND B [id number] 2018-Present [phone] [place] [address] Medicare [id number] 2018 Medicare [id number] 2018 Medicare [id number] 2015 Unknown [facility]ICAL [facility] [id number] 2012 Unknown [id number] Unknown [id number] 462 Unknown [id number]. 462 Unknown [id number]. 462 Unknown [id number]. 462 Unknown [id number]. 462 Unknown [id number]. 462 Unknown [id number]. 462 Unknown [id number]. 462 Unknown [id number]. 462 Unknown [id number]. 462 Unknown [id number]. 462 Unknown [id number]. 462 Unknown [id number]. 462 Unknown [id number]. 462 Unknown [id number]. 462 Unknown [id number]. 462 Unknown [id number]. 462 Unknown [id number]. 462 Unknown [id number]. 462 Unknown [id number]. 462 Social History Date Type Detail Facility Start: 12-13-2018 End: 02-16-2024 Ex-smoker (finding) [facility] Start: 1955 Sex Assigned At Female [facility] Start: 05-11-1978 End: 05-11-1993 History of tobacco use Current smoker [facility] Start: 05-11-1978 End: 05-11-1993 History of tobacco use Cigarette Smoker [facility] Start: 05-24-2021 End: 09-26-2024 Alcohol intake Current drinker of alcohol (finding) [facility] Start: 12-09-2019 End: 04-29-2020 History SDOH Alcohol Frequency 2 [facility] Start: 12-09-2019 End: 04-29-2020 History SDOH Alcohol Std Drinks 1 [facility] Start: 12-17-2012 History SDOH Alcohol Comment 1-2 per yr [facility] Start: 12-09-2019 History SDOH Social Connections Phone 5 [facility] Start: 12-09-2019 History SDOH Social Connections Yazidi 3 [facility] Start: 12-09-2019 Education 12 [facility] Start: 10-26-2021 End: 02-18-2022 Exposure to SARS-CoV-2 (event) Not sure [facility] Start: 05-24-2021 End: 10-22-2022 Cigarettes smoked current (pack per day) - Reported 0.5 [facility] Start: 05-24-2021 End: 02-16-2024 Tobacco use and exposure Smokeless tobacco non-user [facility] Work Phone: Start: 01-03-2022 Tobacco smoking status NHIS Unknown if ever smoked [facility] Work Phone: Start: 12-09-2019 End: 10-22-2022 Social connection and isolation panel [facility] Do you belong to any clubs or organizations such as yarsani groups, unions, fraternal or athletic groups, or school groups? No [facility] Are you now , , , , never or living with a partner? [facility] How often to you hav e a drink containing alcohol? Monthly or less [facility] How many standard dr inks containing alcohol do you have on a typical day? 1 or 2 [facility] How often do you hav e 6 or more drinks on 1 occasion? Never [facility] How hard is it for y ou to pay for the very basics like food, housing, medical care, and heating Not hard at all [facility] Do you feel stress - tense, restless, nervous, or anxious, or unable to sleep at night because your mind is troubled all the time - these days [OSQ] Not at all [facility] (I/We) worried shital er (my/our) food would run out before (I/we) got money to buy more. Never true [facility] Start: 12-09-2019 Sexual orientation Heterosexual (finding) [facility] Medical Equipment Procedure Code Equipment Code Equipment Origin al Text Equipment Identifier Dates Test blood sugar(s) one time daily. Dx: Type 2 DM - Controlled E11.9 Insulin: No [id number], [id number], [id number] Start: 12-17-2020 End: 06-09-2024 Comment on above: Test blood sugar(s) one time daily. Dx: Type 2 DM - Controlled E11.9 Insulin: No ([id number]) Vena cava filter , temporary/permanen t [id number] FDA Start: 02-23-2024 Functional Status Date Assessment Result Facility 11-15-2014 Are you deaf, or do you have serious difficulty hearing No 11/15/2014 11:24 AM EDT Carla Aburto LPN No [facility] Work Phone: 11-15-2014 Are you blind, or do you have serious difficulty seeing, even when wearing glasses No 11/15/2014 11:24 AM EDT Carla Aburto LPN No [facility] 11-15-2014 Do you have serious difficulty walking or climbing stairs Yes 11/15/2014 11:24 AM EDT Carla Aburto LPN Yes [facility] 11-15-2014 Do you have difficul ty dressing or bathing No 11/15/2014 11:24 AM EDT Carla Aburto LPN No [facility] 11-15-2014 Because of a physica l, mental, or emotional condition, do you have difficulty doing errands alone such as visiting a physician's office or shopping No 11/15/2014 11:24 AM EDT Carla Aburto LPN No [facility] Mental Status Date Assessment Result Facility 11-15-2014 Because of a physica l, mental, or emotional condition, do you have serious difficulty concentrating, remembering, or making decisions No 11/15/2014 11:24 AM EDT Carla Aburto LPN No [facility] Clinical Notes 09-07-2020 to 11-03-2024 Patient InstructionsSheri Hutchins MD - 11/03/2024 11:40 AM Marianna Sheth APRN.ALESIA - 09/26/2024 2:24 PM Alexandrea Gold PA-C - 09/21/2024 9:34 AM EDT Note Date & Type Note Facility 11-03-2024 Instructions Sheri Hutchins MD - 11/03/2024 1:05 PM EDT - Eliquis (apixaban) 2.5 mg: take twice daily for life. A 90-day supply (180 tablets) with 3 refills has been sent to your local pharmacy ([facility]). - Metformin: take 1 tablet once daily with breakfast. A 90-day supply with 3 refills has been sent to [facility]. - Carvedilol, cephalexin (once daily), lisinopril, pantoprazole (Protonix), and rosuvastatin: refills have been sent to [facility]. - Effexor (venlafaxine): [facility] to reduce your [id number] cost. - Labs every 6 months under standing orders: magnesium, basic metabolic panel, complete blood count, lipid panel, and hemoglobin A1c. If a lab request is declined for timing, plan to have these tests drawn every 4 months instead so you maintain a 6-month monitoring interval. - Skin care for your legs redness: apply your regular lotion daily, then follow with beef tallow to lock in moisture. Incorporate collagen into your diet by adding bone broth to soups or cooked dishes. - Physical activity: aim for at least 20 minutes on 6 days per week. You can use walking, stretching, chair aerobics, yoga, or Shai Chi. Feel free to split sessions (for example, 10+10 minutes) and work up to 20 minutes straight. - Morning nutrition: start breakfast with a protein source (for example, yogurt without added sugar plus nuts such as walnuts or pecans) to help regulate blood sugar. documented in this encounter [facility] 11-03-2024 History of Presen t illness Narrative This note was created using Foremost[employer]. Subjective Chaparrita Barajas is a 69 year old female. SUBJECTIVE: Krista Barajas is a 69-year-old female with a history of recurrent blood clots, presenting for a medication refill. Krista reports that her certified ophthalmic technologist, Dr. Cazares, recommended a dosage reduction of Eliquis to 2.5 mg BID due to a significant decrease in D-dimer levels. However, she has not yet received a new prescription and is currently breaking down her existing tablets to achieve the lower dose. She inquires about the Watchman device as a potential alternative to lifelong anticoagulation therapy. Krista has a history of recurrent blood clots, primarily in the lower extremities, with the most recent clot originating in the ankle. She denies any upper extremity involvement and does not have an IVC filter. Krista is also requesting refills for her other medications, including carvedilol, cephalexin, lisinopril, Protonix, rosuvastatin, Effexor, and metformin. She notes that her metformin dosage is 1 tablet daily, which has effectively maintained her blood glucose levels between 87-150 mg/dL. She inquires about her most recent HbA1c level. She denies current symptoms of anxiety or depression and denies suicidal ideation. Krista reports a recent weight gain of approximately 10 lbs, which she attributes to a recent course of prednisone. Her current weight is 198 lbs, up from 186 lbs. She is actively working to lose the weight gained during the prednisone treatment. She is taking fruit and vegetable supplements and is trying to incorporate more vegetables and fruits into her diet. She consumes yogurt, specifically acai yogurt, and eats a lot of pecans and walnuts. She is always walking around the house and outside. Krista also mentions that her psoriasis has resolved, but her legs remain erythematous. She is using lotion as needed and inquires about the use of beef tallow for skin care. PAST MEDICAL HISTORY Diagnosis Date Acute gastritis without mention of hemorrhage Chronic airway obstruction, not elsewhere classified 08/29/2014 Depressive disorder, not elsewhere classified Dysmetabolic syndrome X 01/08/2005 Glucose intolerance low HDL Elevated LDL Obesity Esophageal reflux Esophageal reflux Generalized osteoarthrosis, unspecified site Gout Migraine without aura Mixed hyperlipidemia Myalgia and myositis, unspecified Nausea Obesity, unspecified Partially edentulous maxilla has upper denture Phlebitis and thrombophlebitis of unspecified site 01/08/2005 Hx of DVT associated w/ OCP 10/1994, rt leg fracture 1977 Takotsubo cardiomyopathy Thoracic or lumbosacral neuritis or radiculitis, unspecified Unspecified disorder of kidney and ureter Unspecified essential hypertension 01/08/2005 VT (ventricular tachycardia) ([facility]) 01/09/2016 Current Outpatient Medications Medication Sig perfluorohexyloctane, PF, (MIEBO, PF,) 100 % drop Use 1 Drop in eyes four times daily. blood sugar diagnostic (BLOOD GLUCOSE TEST) test strip Test blood sugar(s) one time daily. Dx: Type 2 DM - Controlled E11.9 Insulin: No Cranberry 500 mg cap Take 1 capsule by mouth twice daily. oxyCODONE ER (OXYCONTIN) 10 mg 12 hr tablet Take 10 mg by mouth every 12 hours. morphine IR 15 mg tablet Take 15 mg by mouth twice daily. L. acidophilus-L. rhamnosus (PROBIOTIC) 15 billion cell cap Take 1 scoop by mouth once daily. therapeutic multivitamin (THERA VITAMIN) tablet Take 1 tablet by mouth once daily. Vit K-Kddtad-Wzvpwf-Grape 03-040-28-75-20 mg cap Take by mouth. CALCIUM CARBONATE/VITAMIN D2 (CALCIUM + VITAMIN D ORAL) Take by mouth once daily. Gummies, calcium 1000 mg and vit d 1600 IU apixaban (ELIQUIS) 2.5 mg tab(s) Take 1 tablet by mouth two times a day. carvedilol (COREG) 12.5 mg tablet Take 1 tablet by mouth two times a day. cephALEXin (KEFLEX) 250 mg capsule Take 1 capsule by mouth once daily. lisinopril (ZESTRIL) 20 mg tablet Take 1 tablet by mouth once daily. pantoprazole DR (PROTONIX) 40 mg tablet Take 1 tablet by mouth once daily. rosuvastatin (CRESTOR) 5 mg tablet Take 1 tablet by mouth once daily. metFORMIN ER (GLUCOPHAGE XR) 500 mg 24 hr tablet Take 1 tablet by mouth daily with breakfast. venlafaxine ER (EFFEXOR XR) 75 mg 24 hr capsule Take 1 capsule by mouth two times a day. ondansetron (ZOFRAN) 8 mg tablet Take 1 tablet by mouth every 8 hours as needed for nausea/vomiting. (Patient not taking: Reported on 09/26/2024) No current facility-administered medications for this visit. Review of Systems Objective BP 100/70 (BP Site: Left Arm, BP Position: Sitting, BP Cuff Size: Large Adult) Pulse 71 Resp 14 Wt 90.1 kg (198 lb 10.2 oz) SpO2 98% BMI 35.41 kg/m Physical Exam Constitutional: Appearance: Normal appearance. HENT: Head: Normocephalic. Eyes: Conjunctiva/sclera: Conjunctivae normal. Cardiovascular: Rate and Rhythm: Normal rate and regular rhythm. Heart sounds: Normal heart sounds. Pulmonary: Effort: Pulmonary effort is normal. Breath sounds: Normal breath sounds. Musculoskeletal: Right lower leg: No edema. Left lower leg: No edema. Skin: General: Skin is warm and dry. Neurological: General: No focal deficit present. Mental Status: She is alert and oriented to person, place, and time. Psychiatric: Mood and Affect: Mood normal. Behavior: Behavior normal. Thought Content: Thought content normal. Judgment: Judgment normal. Hemoglobin A1C (%) Date Value 09/21/2024 6.2 12/25/2023 6.3 04/17/2023 6.1 10/21/2022 6.0 02/18/2022 6.4 05/16/2021 6.4 08/27/2020 7.0 12/05/2019 6.9 05/18/2019 6.2 12/20/2018 6.3 Latest Ref Rng 09/21/2024 Protein, Total 6.3 - 8.0 g/dL 7.5 Albumin 3.9 - 4.9 g/dL 4.1 Calcium 8.5 - 10.2 mg/dL 9.7 Bilirubin, Total 0.2 - 1.3 mg/dL 0.6 Alkaline Phosphatase 34 - 123 U/L 104 AST 13 - 35 U/L 21 ALT 7 - 38 U/L 23 Glucose 74 - 99 mg/dL 127 (H) BUN 7 - 21 mg/dL 21 Creatinine 0.58 - 0.96 mg/dL 1.35 (H) Sodium 136 - 144 mmol/L 137 Potassium 3.7 - 5.1 mmol/L 5.0 Chloride 98 - 107 mmol/L 98 CO2 22 - 30 mmol/L 25 Anion Gap 8 - 15 mmol/L 14 eGFR >=60 mL/min/1.73m 42 (L) WBC 3.70 - 11.00 k/uL 15.68 (H) RBC 3.90 - 5.20 m/uL 4.87 Hemoglobin 11.5 - 15.5 g/dL 14.5 Hematocrit 36.0 - 46.0 % 46.5 (H) MCV 80.0 - 100.0 fL 95.5 MCH 26.0 - 34.0 pg 29.8 MCHC 30.5 - 36.0 g/dL 31.2 RDW-CV 11.5 - 15.0 % 12.4 Platelet Count 150 - 400 k/uL 376 MPV 9.0 - 12.7 fL 9.6 Absolute nRBC <0.01 k/uL <0.01 Cholesterol, Total <200 mg/dL 147 Triglyceride <150 mg/dL 91 HDL Cholesterol >39 mg/dL 56 LDL Cholesterol, Calculated <100 mg/dL 74 Non HDL Cholesterol <130 mg/dL 91 VLDL Cholesterol <30 mg/dL 14 TC:HDL Ratio <5.10 2.63 LDL:HDL Ratio <2.54 1.32 Fasting Time hrs 12 Hemoglobin A1C 4.3 - 5.6 % 6.2 (H) Estimated Average Glucose mg/dL 131 Magnesium 1.7 - 2.3 mg/dL 2.1 Legend: (H) High (L) Low Assessment and Plan # Controlled type 2 diabetes mellitus without complication, without long-term current use of insulin ([facility]) (E11.9) - Hemoglobin A1c from September was 6.2%, indicating well-controlled diabetes. - Continue metformin 500 mg once daily with breakfast; refilled for 90 days with 3 refills. - Discussed dietary modifications, emphasizing the importance of starting the day with protein to stabilize blood glucose levels. - Encouraged regular physical activity, aiming for at least 20 minutes of continuous exercise six days a week. - Ordered standing labs every 6 months to monitor A1c, metabolic panel, and other relevant parameters. 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 - Recent D-dimer levels were significantly reduced. - Eliquis dosage adjusted to 2.5 mg twice daily as per Dr. Cazares's recommendation; refilled for 90 days with 3 refills. - Discussed the Watchman device as a potential future option; patient informed that it requires evaluation by a electrical research engineer and is a procedural intervention. # Essential hypertension (I10) - Blood pressure is stable on current regimen. - Continue lisinopril; refilled for 90 days with 3 refills. - Advised to monitor blood pressure regularly at home. 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 - Ordered standing labs every 6 months to monitor renal function. # GERD without esophagitis (K21.9) - Continue Protonix; refilled for 90 days with 3 refills. # Reactive depression (F32.9) - No current symptoms of depression or suicidal ideation. - Continue Effexor; refilled for 30 days with 3 refills, to be filled locally at [facility]. # Class 2 obesity due to excess calories with body mass index (BMI) of 35.0 to 35.9 in adult, unspecified whether serious comorbidity present (E66.812) - Current weight is 198 lbs. - Discussed dietary modifications and regular physical activity to aid in weight management. - Encouraged consumption of vegetables and protein, and advised against high-carb foods. # Psoriasis (L40.9) - Psoriasis has resolved, but residual erythema on the legs remains. - Recommended regular use of emollients and beef tallow to lock in moisture and promote skin healing. - Discussed the benefits of dietary collagen, suggesting the use of bone broth in soups and casseroles. # Mixed hyperlipidemia (E78.2) - Recent labs showed LDL at 74 mg/dL, HDL at 56 mg/dL, and triglycerides within normal range. - Continue rosuvastatin; refilled for 90 days with 3 refills. - Ordered standing lipid panel every 6 months. # Encounter for therapeutic drug monitoring (Z51.81) - Reviewed and refilled all current medications, ensuring appropriate dosages and quantities. - Ordered standing labs every 6 months to , monitor therapeutic levels and ensure medication efficacy. Sheri Hutchins MD Recording using [employer] software for draft documentation of the visit was discussed with the patient/authorized exhibit display representative; all questions welcomed and answered. Patient/authorized exhibit display representative agreed to proceed documented in this encounter [facility] 11-03-2024 Note HNO ID: [id number] Author: SHERI HUTCHINS MD Service: ? Author Type: Physician Type: Progress Notes Filed: 11/03/2024 15:33 Note Text: This note was created using Keypr[employer]. Subjective Chaparrita Barajas is a 69 year old female. SUBJECTIVE: Krista Barajas is a 69-year-old female with a history of recurrent blood clots, presenting for a medication refill. Krista reports that her certified ophthalmic technologist, Dr. Cazares, recommended a dosage reduction of Eliquis to 2.5 mg BID due to a significant decrease in D-dimer levels. However, she has not yet received a new prescription and is currently breaking down her existing tablets to achieve the lower dose. She inquires about the Watchman device as a potential alternative to lifelong anticoagulation therapy. Krista has a history of recurrent blood clots, primarily in the lower extremities, with the most recent clot originating in the ankle. She denies any upper extremity involvement and does not have an IVC filter. Krista is also requesting refills for her other medications, including carvedilol, cephalexin, lisinopril, Protonix, rosuvastatin, Effexor, and metformin. She notes that her metformin dosage is 1 tablet daily, which has effectively maintained her blood glucose levels between 87-150 mg/dL. She inquires about her most recent HbA1c level. She denies current symptoms of anxiety or depression and denies suicidal ideation. Krista reports a recent weight gain of approximately 10 lbs, which she attributes to a recent course of prednisone. Her current weight is 198 lbs, up from 186 lbs. She is actively working to lose the weight gained during the prednisone treatment. She is taking fruit and vegetable supplements and is trying to incorporate more vegetables and fruits into her diet. She consumes yogurt, specifically acai yogurt, and eats a lot of pecans and walnuts. She is always walking around the house and outside. Krista also mentions that her psoriasis has resolved, but her legs remain erythematous. She is using lotion as needed and inquires about the use of beef tallow for skin care. PAST MEDICAL HISTORY Diagnosis Date Acute gastritis without mention of hemorrhage Chronic airway obstruction, not elsewhere classified 08/29/2014 Depressive disorder, not elsewhere classified Dysmetabolic syndrome X 01/08/2005 Glucose intolerance low HDL Elevated LDL Obesity Esophageal reflux Esophageal reflux Generalized osteoarthrosis, unspecified site Gout Migraine without aura Mixed hyperlipidemia Myalgia and myositis, unspecified Nausea Obesity, unspecified Partially edentulous maxilla has upper denture Phlebitis and thrombophlebitis of unspecified site 01/08/2005 Hx of DVT associated w/ OCP 10/1994, rt leg fracture 1977 Takotsubo cardiomyopathy Thoracic or lumbosacral neuritis or radiculitis, unspecified Unspecified disorder of kidney and ureter Unspecified essential hypertension 01/08/2005 VT (ventricular tachycardia) ([facility]) 01/09/2016 Current Outpatient Medications Medication Sig perfluorohexyloctane, PF, (MIEBO, PF,) 100 % drop Use 1 Drop in eyes four times daily. blood sugar diagnostic (BLOOD GLUCOSE TEST) test strip Test blood sugar(s) one time daily. Dx: Type 2 DM - Controlled E11.9 Insulin: No Cranberry 500 mg cap Take 1 capsule by mouth twice daily. oxyCODONE ER (OXYCONTIN) 10 mg 12 hr tablet Take 10 mg by mouth every 12 hours. morphine IR 15 mg tablet Take 15 mg by mouth twice daily. L. acidophilus-L. rhamnosus (PROBIOTIC) 15 billion cell cap Take 1 scoop by mouth once daily. therapeutic multivitamin (THERA VITAMIN) tablet Take 1 tablet by mouth once daily. Vit W-Ckqjiz-Opouno-Grape [id number] mg cap Take by mouth. CALCIUM CARBONATE/VITAMIN D2 (CALCIUM + VITAMIN D ORAL) Take by mouth once daily. Gummies, calcium 1000 mg and vit d 1600 IU apixaban (ELIQUIS) 2.5 mg tab(s) Take 1 tablet by mouth two times a day. carvedilol (COREG) 12.5 mg tablet Take 1 tablet by mouth two times a day. cephALEXin (KEFLEX) 250 mg capsule Take 1 capsule by mouth once daily. lisinopril (ZESTRIL) 20 mg tablet Take 1 tablet by mouth once daily. pantoprazole DR (PROTONIX) 40 mg tablet Take 1 tablet by mouth once daily. rosuvastatin (CRESTOR) 5 mg tablet Take 1 tablet by mouth once daily. metFORMIN ER (GLUCOPHAGE XR) 500 mg 24 hr tablet Take 1 tablet by mouth daily with breakfast. venlafaxine ER (EFFEXOR XR) 75 mg 24 hr capsule Take 1 capsule by mouth two times a day. ondansetron (ZOFRAN) 8 mg tablet Take 1 tablet by mouth every 8 hours as needed for nausea/vomiting. (Patient not taking: Reported on 09/26/2024) No current facility-administered medications for this visit. Review of Systems Objective BP 100/70 (BP Site: Left Arm, BP Position: Sitting, BP Cuff Size: Large Adult) Pulse 71 Resp 14 Wt 90.1 kg (198 lb 10.2 oz) SpO2 98% BMI 35.41 kg/m? Physical Exam Constitutional: Appearance: Normal appearance. (more content not included)... [facility] 09-26-2024 Note HNO ID: [id number] Author: MARIANNA FINNEGAN APRN.PEDIATRIC CLINICAL NURSE SPECIALIST Service: ? Author Type: Nurse Specialist Type: Progress Notes Filed: 09/26/2024 14:40 Note Text: SUBJECTIVE Chaparrita Barajas is a 69 year old female who presents with 7 days of symptoms that are worsening. She was seen in urgent care on September 21, 2024 for nasal congestion right ear pain and cough for 2 days prior to arrival.. She was checked for strep. Negative. Treated with prednisone. Symptoms include: Fever (>=100.4F): No or Chills: No Cough: Yes Shortness of breath: No or Difficulty breathing: No Fatigue: Yes Muscle aches: No Headache: Yes New loss of smell or taste: No Sore throat: Yes Nasal congestion: Yes or Rhinorrhea: Yes Nausea: No or Vomiting: No Diarrhea: No OTC meds/remedies that patient has tried: nothing. She reports that she quit smoking about 31 years ago. Her smoking use included cigarettes. She started smoking about 46 years ago. She has a 7.5 pack-year smoking history. She has never used smokeless tobacco. OBJECTIVE PHYSICAL EXAM: BP 127/77 Pulse 74 Temp 36.3 ?C (97.4 ?F) Resp 16 Wt 87.8 kg (193 lb 9 oz) SpO2 97% BMI 34.51 kg/m? General appearance: tired/ill appearing, alert, cooperative, pleasant, in no acute distress Head: Normocephalic Eyes: conjunctiva/corneas normal Ears: R TM - clear with good landmarks, nl light reflex, L TM - clear with good landmarks, nl light reflex Nose: clear Oropharynx: moist without lesions, mild erythema to GPA, no exudate Neck: supple and small, benign anterior cervical nodes bilaterally Heart: regular rate and rhythm, without murmur Lungs: clear to auscultation, without rales or wheeze, good air exchange ASSESSMENT/PLAN (J32.9, J40) Sinobronchitis (primary encounter diagnosis) ASSESSMENT/PLAN: 1. Sinobronchitis - ICD9: 473.9, 490, ICD10: J32.9, J40 - Will begin treatment with as per antibiotic as written, see orders - Supportive care with plenty of fluids, rest, and analgesia prn. - Follow up in 3-5 days if symptoms persist or worsen. - ALBUTEROL SULFATE HFA 90 MCG/ACTUATION AEROSOL INHALER - DEXTROMETHORPHAN POLISTIREX ER 30 MG/5 ML ORAL SUSP EXT.RELEASE 12HR - PREDNISONE 10 MG TABLET - AZITHROMYCIN 250 MG TABLET Marianna Finnegan APRN.PEDIATRIC CLINICAL NURSE SPECIALIST Medical Decision Making: Problems: Low: Acute, uncomplicated illness or injury Risk: Moderate: Drug management Medical Decision Making Level: 3 - Low [facility] 09-26-2024 History of Presen t illness Narrative SUBJECTIVE Chaparrita Barajas is a 69 year old female who presents with 7 days of symptoms that are worsening. She was seen in urgent care on September 21, 2024 for nasal congestion right ear pain and cough for 2 days prior to arrival.. She was checked for strep. Negative. Treated with prednisone. Symptoms include: Fever (>=100.4F): No or Chills: No Cough: Yes Shortness of breath: No or Difficulty breathing: No Fatigue: Yes Muscle aches: No Headache: Yes New loss of smell or taste: No Sore throat: Yes Nasal congestion: Yes or Rhinorrhea: Yes Nausea: No or Vomiting: No Diarrhea: No OTC meds/remedies that patient has tried: nothing. She reports that she quit smoking about 31 years ago. Her smoking use included cigarettes. She started smoking about 46 years ago. She has a 7.5 pack-year smoking history. She has never used smokeless tobacco. OBJECTIVE PHYSICAL EXAM: BP 127/77 Pulse 74 Temp 36.3 C (97.4 F) Resp 16 Wt 87.8 kg (193 lb 9 oz) SpO2 97% BMI 34.51 kg/m General appearance: tired/ill appearing, alert, cooperative, pleasant, in no acute distress Head: Normocephalic Eyes: conjunctiva/corneas normal Ears: R TM - clear with good landmarks, nl light reflex, L TM - clear with good landmarks, nl light reflex Nose: clear Oropharynx: moist without lesions, mild erythema to GPA, no exudate Neck: supple and small, benign anterior cervical nodes bilaterally Heart: regular rate and rhythm, without murmur Lungs: clear to auscultation, without rales or wheeze, good air exchange ASSESSMENT/PLAN (J32.9, J40) Sinobronchitis (primary encounter diagnosis) ASSESSMENT/PLAN: 1. Sinobronchitis - ICD9: 473.9, 490, ICD10: J32.9, J40 - Will begin treatment with as per antibiotic as written, see orders - Supportive care with plenty of fluids, rest, and analgesia prn. - Follow up in 3-5 days if symptoms persist or worsen. - ALBUTEROL SULFATE HFA 90 MCG/ACTUATION AEROSOL INHALER - DEXTROMETHORPHAN POLISTIREX ER 30 MG/5 ML ORAL SUSP EXT.RELEASE 12HR - PREDNISONE 10 MG TABLET - AZITHROMYCIN 250 MG TABLET Marianna Finnegan APRN.PEDIATRIC CLINICAL NURSE SPECIALIST Medical Decision Making: Problems: Low: Acute, uncomplicated illness or injury Risk: Moderate: Drug management Medical Decision Making Level: 3 - Low documented in this encounter [facility] 09-21-2024 Note HNO ID: [id number] Author: ALEXANDREA ACE PA-C Service: ? Author Type: Physician Phlebotomy Program Coordinator Type: Progress Notes Filed: 09/21/2024 09:37 Note Text: This note was created using [employer]. Subjective Chaparrita Barajas is a 69 year old female. Patient is a 69-year-old female who complains of congestion, right ear pain and cough that she has been experiencing for the past 2 days. Patient states that she also developed significant hoarseness to her voice over the last 24 hours. Patient states that her left ear is asymptomatic and nontender. Patient does complain of sore throat but denies sinus pressure or pain. Patient reports no fever, chills or myalgia. Ear Pain Associated symptoms include congestion, coughing and a sore throat. Review of Systems HENT: Positive for congestion, ear pain, sore throat and voice change. Respiratory: Positive for cough. All other systems reviewed and are negative. Objective BP 118/74 Pulse 80 Temp 36.4 ?C (97.5 ?F) (Tympanic) Resp 18 Wt 86.7 kg (191 lb 2.2 oz) SpO2 96% BMI 34.07 kg/m? Physical Exam Vitals and nursing note reviewed. Constitutional: Appearance: Normal appearance. She is normal weight. HENT: Head: Normocephalic and atraumatic. Right Ear: Tympanic membrane, ear canal and external ear normal. Left Ear: Tympanic membrane, ear canal and external ear normal. Nose: Nose normal. Mouth/Throat: Mouth: Mucous membranes are moist. Pharynx: Oropharynx is clear. Eyes: Extraocular Movements: Extraocular movements intact. Conjunctiva/sclera: Conjunctivae normal. Pupils: Pupils are equal, round, and reactive to light. Cardiovascular: Rate and Rhythm: Normal rate and regular rhythm. Pulses: Normal pulses. Heart sounds: Normal heart sounds. Pulmonary: Effort: Pulmonary effort is normal. Breath sounds: Normal breath sounds. Musculoskeletal: Cervical back: Normal range of motion and neck supple. Skin: General: Skin is warm and dry. Capillary Refill: Capillary refill takes less than 2 seconds. Neurological: General: No focal deficit present. Mental Status: She is alert and oriented to person, place, and time. Psychiatric: Mood and Affect: Mood normal. Behavior: Behavior normal. Thought Content: Thought content normal. Judgment: Judgment normal. Assessment and Plan Physical exam findings as noted above. Rapid strep test is negative. Patient was provided with prescription for prednisone 20 mg and supportive care instructions were discussed. Patient verbalizes excellent understanding of same. CLINICAL IMPRESSION: Acute Laryngitis; Viral Illness ASSESSMENT/PLAN: 1. Acute laryngitis - ICD9: 464.00, ICD10: J04.0 (primary diagnosis) - STREP A MOLECULAR (POC) - PREDNISONE 20 MG TABLET 2. Viral illness - ICD9: 079.99, ICD10: B34.9 MDM Amount and/or Complexity of Data Reviewed Clinical lab tests: ordered and reviewed Risk of Complications, Morbidity, and/or Mortality Presenting problems: low Diagnostic procedures: low Management options: low Alexandrea Clutter, PA-C [facility] 09-21-2024 History of Presen t illness Narrative This note was created using [employer]. Subjective Chaparrita Barajas is a 69 year old female. Patient is a 69-year-old female who complains of congestion, right ear pain and cough that she has been experiencing for the past 2 days. Patient states that she also developed significant hoarseness to her voice over the last 24 hours. Patient states that her left ear is asymptomatic and nontender. Patient does complain of sore throat but denies sinus pressure or pain. Patient reports no fever, chills or myalgia. Ear Pain Associated symptoms include congestion, coughing and a sore throat. Review of Systems HENT: Positive for congestion, ear pain, sore throat and voice change. Respiratory: Positive for cough. All other systems reviewed and are negative. Objective BP 118/74 Pulse 80 Temp 36.4 C (97.5 F) (Tympanic) Resp 18 Wt 86.7 kg (191 lb 2.2 oz) SpO2 96% BMI 34.07 kg/m Physical Exam Vitals and nursing note reviewed. Constitutional: Appearance: Normal appearance. She is normal weight. HENT: Head: Normocephalic and atraumatic. Right Ear: Tympanic membrane, ear canal and external ear normal. Left Ear: Tympanic membrane, ear canal and external ear normal. Nose: Nose normal. Mouth/Throat: Mouth: Mucous membranes are moist. Pharynx: Oropharynx is clear. Eyes: Extraocular Movements: Extraocular movements intact. Conjunctiva/sclera: Conjunctivae normal. Pupils: Pupils are equal, round, and reactive to light. Cardiovascular: Rate and Rhythm: Normal rate and regular rhythm. Pulses: Normal pulses. Heart sounds: Normal heart sounds. Pulmonary: Effort: Pulmonary effort is normal. Breath sounds: Normal breath sounds. Musculoskeletal: Cervical back: Normal range of motion and neck supple. Skin: General: Skin is warm and dry. Capillary Refill: Capillary refill takes less than 2 seconds. Neurological: General: No focal deficit present. Mental Status: She is alert and oriented to person, place, and time. Psychiatric: Mood and Affect: Mood normal. Behavior: Behavior normal. Thought Content: Thought content normal. Judgment: Judgment normal. Assessment and Plan Physical exam findings as noted above. Rapid strep test is negative. Patient was provided with prescription for prednisone 20 mg and supportive care instructions were discussed. Patient verbalizes excellent understanding of same. CLINICAL IMPRESSION: Acute Laryngitis; Viral Illness ASSESSMENT/PLAN: 1. Acute laryngitis - ICD9: 464.00, ICD10: J04.0 (primary diagnosis) - STREP A MOLECULAR (POC) - PREDNISONE 20 MG TABLET 2. Viral illness - ICD9: 079.99, ICD10: B34.9 MDM Amount and/or Complexity of Data Reviewed Clinical lab tests: ordered and reviewed Risk of Complications, Morbidity, and/or Mortality Presenting problems: low Diagnostic procedures: low Management options: dyllan Ace PA-C documented in this encounter [facility] 08-24-2024 Note HNO ID: [id number] Author: ROMMEL WIN PT Service: ? Author Type: Physical Therapist Type: Progress Notes Filed: 08/24/2024 15:12 Note Text: 08/24/2024 [facility]ORTS [facility]ER[facility] PHYSICAL THERAPY DISCONTINUANCE OF CARE Plan of Care Period: Start of Care Date: 05/23/24 Last Visit Date: 06/14/2024 Therapy Program: The following is a summary of the interventions provided for this episode of care; Therapeutic exercise and Self-jail management Assessment: Based on most recent visit, patient was progressing slower than expected toward functional goals based on appointment compliance. Unable to formally assess goal achievement, as patient has not returned to therapy or scheduled additional follow-up appointments. Reason for Discontinuation of Care: Patient has not returned to therapy or scheduled additional follow-up appointments. Rommel Win, PT [facility] 07-22-2024 Telephone encounter Note IRB #: [id number] PI: Mckenzie Zabala MD Study Title: Identifying Multimodal Biomarkers for Autologous Serum Tears in the Treatment of Chronic Postoperative Ocular Pain (CPOP) Called patient at the request of Dr. Zabala July 22, 2024, regarding potential interest in serum tears/CPOP study. No answer, LMOM for patient to call back Lidia at [phone] if interested in participating or learning more. Lidia Low Research Coordinator II July 22, 2024 [facility] 07-22-2024 Miscellaneous Notes IRB #: [id number] PI: Mckenzie Zabala MD Study Title: Identifying Multimodal Biomarkers for Autologous Serum Tears in the Treatment of Chronic Postoperative Ocular Pain (CPOP) Called patient at the request of Dr. Zabala July 22, 2024, regarding potential interest in serum tears/CPOP study. No answer, LMOM for patient to call back Lidia at [phone] if interested in participating or learning more. Lidia Low Research Coordinator II July 22, 2024 documented in this encounter [facility] 07-15-2024 Telephone encounter Note IRB #: [id number] PI: Mckenzie Zabala MD Study Title: Identifying Multimodal Biomarkers for Autologous Serum Tears in the Treatment of Chronic Postoperative Ocular Pain (CPOP) Called patient at the request of Dr. Zabala July 15, 2024, regarding potential interest in serum tears/CPOP study. No answer, LMOM for patient to call back Lidia at [phone] if interested in participating or learning more. Lidia Low Research Coordinator II July 15, 2024 [facility] 07-15-2024 Miscellaneous Notes IRB #: [id number] PI: Mckenzie Zabala MD Study Title: Identifying Multimodal Biomarkers for Autologous Serum Tears in the Treatment of Chronic Postoperative Ocular Pain (CPOP) Called patient at the request of Dr. Zabala July 15, 2024, regarding potential interest in serum tears/CPOP study. No answer, LMOM for patient to call back Lidia at [phone] if interested in participating or learning more. Lidia Low Research Coordinator II July 15, 2024 documented in this encounter [facility] 07-07-2024 Evaluation note Diagnosis Onset Date Resolution DVT (deep venous thrombosis) chronic July 07, 2:20pm Hematuria resolved July 07, 2024 2:20pm S/P IVC filter acute July 12:52pm DVT (deep venous thrombosis) chronic July 29, 2024 12:52pm DVT (deep venous thrombosis) chronic September 22, 2024 2 :15pm [facility] Work Phone: 1(872) 496-571202-12-2025 NoteHNO ID: [id number] Author: MCKENZIE ZABALA MD Service: ? Author Type: Physician Type: Progress Notes Filed: 06/22/2024 14:51 Note Text: Assessment and Plan 1. Dry eye syndrome of both eyes -main complaint is burning and itching and blurry vision -started ~6 months after cataract surgery left eye when vision dropped abruptly and pain began -elevated esr and crp (history of multiple DVTs) -frequent eye rubber! Especially in the morning when wakes up Dry Eye Treatment: Ointment Effective?: No Comments: Erythromycin Cyclosporine Effective?: Partially Punctal occlusion Effective?: No 2. Pseudophakia both eyes -sable both eyes Plan: -dry eye left eye >> right eye in setting of more eyelid laxity, also possibly element of rosacea. Will also check Anti-nuclear antibody and anti-SSA/SSB -continue artificial tears - will try miebo -continue restasis twice a day both eyes -no rubbing eyes -may need oculoplastics eval in the future? -will schedule for CPOP -back to Dr. Webber once better I have confirmed and edited as necessary the relevant ophthalmic history, ROS, and the neuro exam findings as obtained by others. I have seen and examined Chaparrita Barajas. I have discussed the case and the management of this patient's care with the Resident/Fellow, if applicable. I also have reviewed and agree with the assessment and plan as stated above and agree with all of its relevant components. Mckenzie Zabala, [facility]02-12-2025 History of Present illness Narrative* Mckenzie Zabala MD - 06/22/2024 2:42 PM EST Assessment and Plan 1. Dry eye syndrome of both eyes -main complaint is burning and itching and blurry vision -started ~6 months after cataract surgery left eye when vision dropped abruptly and pain began -elevated esr and crp (history of multiple DVTs) -frequent eye rubber! Especially in the morning when wakes up Dry Eye Treatment: Ointment Effective?: No Comments: Erythromycin Cyclosporine Effective?: Partially Punctal occlusion Effective?: No 2. Pseudophakia both eyes -sable both eyes Plan: -dry eye left eye >> right eye in setting of more eyelid laxity, also possibly element of rosacea. Will also check Anti-nuclear antibody and anti-SSA/SSB -continue artificial tears - will try miebo -continue restasis twice a day both eyes -no rubbing eyes -may need oculoplastics eval in the future? -will schedule for CPOP -back to Dr. Webber once better I have confirmed and edited as necessary the relevant ophthalmic history, ROS, and the neuro exam findings as obtained by others. I have seen and examined Chaparrita Barajas. I have discussed the case and the management of this patient's care with the Resident/Fellow, if applicable. I also have reviewed and agree with the assessment and plan as stated above and agree withall of its relevant components. Mckenzie Zabala MD [facility]25 NoteHNO ID: [id number] Author: ROMMEL WIN, PT Service: ? Author Type: Physical Therapist Type: Progress Notes Filed: 06/14/2024 14:34 Note Text: 06/14/2024 Krista Barajas arrived for her physical therapy appointment on 06/14/2024. When therapist went to the waiting room to retrieve the patient, she stated she has not been feeling well and that is why she had to cancel the prior appointments as well. PT AND patient decided it was not the best opinion to participate in physical therapy this date. Therapist AND patient discussed continuing HEP as tolerated and upcoming appointments + progress check on 07/04/24. Clinic visit no charge this date. Spent 6 minutes communicating with the patient. 2:17pm-2:23pm. Rommel Win, PT, DPT.[facility]02-04-2025 History of Present illness Narrative* Rommel Win, PT - 06/14/2024 2:29 PM EST 06/14/2024 Krista Barajas arrived for her physical therapy appointment on 06/14/2024. When therapist went to the waiting room to retrieve the patient, she stated she has not been feeling well and that is why she had to cancel the prior appointments as well. PT & patient decided it was not the best opinion toparticipate in physical therapy this date. Therapist & patient discussed continuing HEP as tolerated and upcoming appointments + progress check on 07/04/24. Clinic visit no charge this date. Spent 6 minutes communicating with the patient. 2:17pm-2:23pm. Rommel Win, PT, DPT. [facility] Telephone encounter Note * Telephone Encounter - Jennifer Clements RN - 06/09/2024 11:05 AM EST Pt needs test strips to go to [facility] in [place] due to her having Medicare B. [facility] can not charge for them yet as they have to be open longer than 5 years. Please call pt when prescription has been sent to [facility]. The patient has been identified by name and date of : Yes Caregiver verified no other encounters exist for this prescription request: Yes Caregiver confirmed with patient/requestor that no other refills are due, in the near future, with this provider at this time: Yes The last office visit in the department: 04/25/2024 Does the patient have a future office visit with this provider/department: Yes 10/19/2024 Requested Prescriptions Pending Prescriptions Disp Refills blood sugar diagnostic (BLOOD GLUCOSE TEST) test strip 50 Strip 11 Sig: Test blood sugar(s) one time daily. Dx: Type 2 DM - Controlled E11.9 Insulin: No Jennifer Clements RN June 09, 2024 11:05 AM [facility]01-30-2025 Miscellaneous Notes* Telephone Encounter - Jennifer Clements RN - 06/09/2024 11:05 AM EST Pt needs test strips to go to [facility] in [place] due to her having Medicare B. [facility] can not charge for them yet as they have to be open longer than 5 years. Please call pt when prescription has been sent to [facility]. The patient has been identified by name and date of : Yes Caregiver verified no other encounters exist for this prescription request: Yes Caregiver confirmed with patient/requestor that no other refills are due, in the near future, with this provider at this time: Yes The last office visit in the department: 04/25/2024 Does the patient have a future office visit with this provider/department: Yes 10/19/2024 Requested Prescriptions Pending Prescriptions Disp Refills blood sugar diagnostic (BLOOD GLUCOSE TEST) test strip 50 Strip 11 Sig: Test blood sugar(s) one time daily. Dx: Type 2 DM - Controlled E11.9 Insulin: No Jennifer Clements RN June 09, 2024 11:05 AM documented in [facility]Bar[facility]01-[facility]25 NoteHNO ID: [id number] Author: ROMMEL WIN PT Service: ? Author Type: Physical Therapist Type: Progress Notes Filed: 06/02/2024 15:43 Note Text: Episode Visit Count: 2 Therapist That Will Accept/Oversee The Plan Of Care: Rommel Win PT. Start of Care Date: 05/23/24 Onset Date: 05/11/23 Plan of Care Certification Date: 05/23/24 Next Certification Due Date: 07/04/24 Patient Identified by Name and Date of : Yes REHABILITATION AND SPORTS THERAPY PHYSICAL THERAPY TREATMENT NOTE ASSESSMENT: Chaparrita Barajas tolerated the session with fatigue and expected muscle soreness. She demonstrated difficulty with L Foot Behind on Semi-Tandem and Tandem. Muscle fatigue on SLR bilat.. The patient will continue to benefit from ongoing skilled physical therapy to progress toward set goals. PLAN FOR NEXT VISIT: Increased balance activities. SUBJECTIVE: Been doing good overall. States no new falls or slips/trips. Some of the exercises bother the back but she states, not unusual. Pain: Pain Pain Level: (Does not rate.) OBJECTIVE MEASURES WITH LEVEL OF FUNCTION Good form demonstrated throughout session and completion of ther-ex. Decreased Hip Flexion height with left lower extremity compared to R. TREATMENT: Therapeutic Exercise: 1: Seated Hip ADD Squeeze: x15, 5-sec holds. 2: Supine SLR: 3x10 each. 3: STS: 3x10, 7#. (21-inch height.) 4: Seated March: x10 bilat. 5: Standing Hip ABD: x10 each. 6: 6 Fwd Suleiman: 2x12, each leg. 7: Sci-Fit: 5 Min. Direct 1:1 AND subj taken. Skilled Intervention: Patient was educated in proper exercise technique and purpose for exercises. Skilled judgment was used in selection of appropriate interventions. Neuromuscular Re-Education: 1: Semi-Tandem, EC, on Airex: 5x15. 2: Tandem, Ground Flat, EO: 4x30. Skilled Intervention: Skilled judgment used to assess appropriate program for balance and coordination activity. Ensured patient safety with use of gait belt AND supervision. Billing Therapeutic Exercise Treatment Minutes: 34 Neuromuscular Re-Education Treatment Minutes: 8 Skilled Treatment Time Minutes (timed and untimed codes): 42 Total Session Time (minutes): 42 Session Start Time : 1500 Session Stop Time : 1542 [facility]mel Win, [facility] History of Present illness Narrative* Rommel Win, PT - 06/02/2024 2:57 PM EST Episode Visit Count: 2 Therapist That Will Accept/Oversee The Plan Of Care: Rommel Win, PT. Start of Care Date: 05/23/24 Onset Date: 05/11/23 Plan of Care Certification Date: 05/23/24 Next Certification Due Date: 07/04/24 Patient Identified by Name and Date of : Yes REHABILITATION AND SPORTS THERAPY PHYSICAL THERAPY TREATMENT NOTE ASSESSMENT: Chaparrita Barajas tolerated the session with fatigue and expected muscle soreness. She demonstrated difficulty with L Foot Behind on Semi-Tandem and Tandem. Muscle fatigue on SLR bilat.. The patient will continue to benefit from ongoing skilled physical therapy to progress toward set goals. PLAN FOR NEXT VISIT: Increased balance activities. SUBJECTIVE: Been doing good overall. States no new falls or slips/trips. Some of the exercises bother the back but she states, not unusual. Pain: Pain Pain Level: (Does not rate.) OBJECTIVE MEASURES WITH LEVEL OF FUNCTION Good form demonstrated throughout session and completion of ther-ex. Decreased Hip Flexion height with left lower extremity compared to R. TREATMENT: Therapeutic Exercise: 1: Seated Hip ADD Squeeze: x15, 5-sec holds. 2: Supine SLR: 3x10 each. 3: STS: 3x10, 7#. (21-inch height.) 4: Seated March: x10 bilat. 5: Standing Hip ABD: x10 each. 6: 6 Fwd Suleiman: 2x12, each leg. 7: Sci-Fit: 5 Min. Direct 1:1 & subj taken. Skilled Intervention: Patient was educated in proper exercise technique and purpose for exercises. Skilled judgment was used in selection of appropriate interventions. Neuromuscular Re-Education: 1: Semi-Tandem, EC, on Airex: 5x15. 2: Tandem, Ground Flat, EO: 4x30. Skilled Intervention: Skilled judgment used to assess appropriate program for balance and coordination activity. Ensured patient safety with use of gait belt & supervision. Billing Therapeutic Exercise Treatment Minutes: 34 Neuromuscular Re-Education Treatment Minutes: 8 Skilled Treatment Time Minutes (timed and untimed codes): 42 Total Session Time (minutes): 42 Session Start Time : 1500 Session Stop Time : 1542 Rommel Win PT documented in this encounterBar[facility]01-[facility]25 History of Present illness Narrative* Subhash Ohara Mammo Tech - 05/23/2024 1:30 PM EST Radiology Service Progress Note PATIENT NAME: Chaparrita Barajas DATE OF SERVICE: May 23, 2024 TIME: 1:57 PM PATIENT IDENTITY VERIFICATION COMPLETED USING TWO (2) IDENTIFIERS: Name and Date of confirmedby patient verbally. FALL SCREENING: Has the patient had 2 falls in the last year or 1 fall with injury or currently using an Ambulatory Assistive Device (Walker, Cane, Wheelchair, Crutches, etc.)? No PATIENT GENDER DATA: Assigned female at . status: : No status:NO. PATIENT RELEVANT IMPLANT DATA REVIEWED: Not Applicable PATIENT PRESENTS WITH AN IMPLANTABLE OR ATTACHED ROLLER COASTER DESIGNER: No RADIOLOGY DEPARTMENT: Mammography PERIPHERAL IV DATA: Not applicable SIGNED BY: Jer Parra May 23, 2024 1:57 PM documented in this encounterBarberton [facility]01-13-2025 NoteHNO ID: [id number] Author: SUBHASH OHARA Mammo Tech Service: ? Author Type: Patent Counsel Type: Progress Notes Filed: 05/23/2024 13:57 Note Text: Radiology Service Progress Note PATIENT NAME: Chaparrita Barajas DATE OF SERVICE: May 23, 2024 TIME: 1:57 PM PATIENT IDENTITY VERIFICATION COMPLETED USING TWO (2) IDENTIFIERS: Name and Date of confirmed by patient verbally. FALL SCREENING: Has the patient had 2 falls in the last year or 1 fall with injury or currently using an Ambulatory Assistive Device (Walker, Cane, Wheelchair, Crutches, etc.)? No PATIENT GENDER DATA: Assigned female at . status: : No status: NO. PATIENT RELEVANT IMPLANT DATA REVIEWED: Not Applicable PATIENT PRESENTS WITH AN IMPLANTABLE OR ATTACHED ROLLER COASTER DESIGNER: No RADIOLOGY DEPARTMENT: Mammography PERIPHERAL IV DATA: Not applicable SIGNED BY: Jer Parra May 23, 2024 1:57 [facility]01-13-2025 History of Present illness Narrative* Rommel Win, PT - 05/23/2024 1:02 PM EST Program_ID:[id number] Access Code: [email or web address] URL: [email or web address] Date: 05-23-2024 Prepared By: Rommel Win Program Notes Exercises - Standing Hip Abduction with Counter Support - 2 x daily - 7 x weekly - 2 sets - 8-10 reps - Seated March - 2 x daily - 7 x weekly - 2 sets - 10 reps - Seated Hip Adduction Isometrics with Ball - 2 x daily - 7 x weekly - 2 sets - 10 reps - Supine Active Straight Leg Raise - 2 x daily - 7 x weekly - 2 sets - 6-10 reps * Rommel Win, PT - 05/23/2024 12:14 PM EST Images from the original note were not included. Episode Visit Count: 1 Therapist That Will Accept/Oversee The Plan Of Care: Rommel Win PT. Start of Care Date: 05/23/24 Onset Date: 05/11/23 Plan of Care Certification Date: 05/23/24 Next Certification Due Date: 07/04/24 Patient Identified by Name and Date of : Yes REHABILITATION AND SPORTS THERAPY PHYSICAL THERAPY EVALUATION PLAN OF CARE: Assessment: Chaparrita Barajas presents with chief complaint of balance/falls that interferes with stair negotiation, physical activities, walking in the community, standing (Walking with a laundry basket, Uneven Surfaces, Incline/Declines.) . The patient presents with impairments in ADL's, balance, g ait, independence in exercise, overall function, strength, symptom management, and functional performance testing indicates risk for falls. PROMIS (Patient- Reported Outcomes Measurement Information System) scores were reviewed and identified as a rehabilitation concern. Prognosis for therapy is Good due to: current objective clinical presentation . The patient will benefit from skilled therapy services to meet the goals established for this plan of care as noted below. Goals for Episode of Care: established 05/23/24 Patient reported outcome of physical function will increase T-score by a minimum 5 points. [place] in home exercise program. Patient will report no falls. Improve score on Timed Up and Go Test to <10 seconds to reflect decreased fall risk. Improve score on 30 Second Chair Stand to 11 repetitions to reflect decreased fall risk. Improve score on 5xSTS to <12.5sec without use of BUE to indicate increased bilat leg strength. Increase strength of BLE to 4+/5 in order to decrease fall risk and improve overall activity tolerance. Patient Goals: Improve balance and decrease falls. Time Frame for Goals and Treatment : 07/04/24 Planned Interventions, Frequency, and Duration: Current Frequency: 2x/week Duration: 4 weeks Total Number of Visits Planned: 8 Planned Treatment Interventions: Therapeutic exercise (36566), Neuromuscular re- education (07464), Manual therapy (52108), Therapeutic activities (73319), Self- jail management (90119), Patient/Family/Caregiver Education PLAN FOR NEXT VISIT: Review, correct and progress HEP to tolerance. Static & dynamic gait. B LEOC Strength. Patient demonstrates good understanding of plan of care and treatment. The above goals and plan of care were discussed and agreed upon by patient/family. SUBJECTIVE: Here for balance & falls. States falling started 05/11/2023. Last fall early March 2024. Everytime she has fallen, she is outside on cement. Falls are generally caused by a trip, states catchesher toes. States B LE are weak. Has a dog that is 15-years old. L Knee and Back can be in pain so she shys away from increased activity. Has not tried using an AD following the falls. States she is in continous pain due to severe arthritis, see's pain mgmt. Patient Goals: Improve balance and decrease falls. Functional Limitations: stair negotiation, physical activities, walking in the community, standing (Walking with a laundry basket, Uneven Surfaces, Incline/Declines.) Prior Level of Function: Independent without limitations Relevant History Past Relevant Surgical Conditions: Total Knee Replacement-Right, Total Knee Replacement-Left, TotalHip Replacement-Right, Total Hip Replacement-Left, Total Shoulder Replacement-Left, Total Shoulder Replacement-Right Employment: Retired Home Environment Patient Lives With: Spouse, Family (Sister) Assistance Available: PRN Home Type: [place] Entry To Home: Ramp (in garage) Intake Information: Prescription present Previous Treatment: None Falls Interview: Two or more falls in the last year, Comments Falls Intervention: More thorough falls assessment to be performed, Instructed patient on safety and use of assistive device and awareness in regards to falls prevention. Falls Comments: No ED visit following falls. However, multiple bumps and bruises from falls. Falls History # of falls in past year: 8 # of falls resulting in an injury in past year: 5 Pain: Pain Pain Level: 5 Pain Location: Low Back/Lumbar Spine- Midline, Knee - Left, Knee - Right Description: Aching Frequency: Continuous PROMIS Scales 05/23/2024 Higher is Better Phys Func - Score 33 (moderate dysfunction) Phys Func - Percentile 4 Self-Eff Symptom - Score 42 (Average) Self-Eff Symptom - Percentile 21 T-scores: mean of general population = 50. 5 points is clinically meaningfully difference Percentiles provide an indication of how the patient's score ranks in relation to the general population. Higher percentile rankings indicate better function/quality of life. 50th percentile is the average of the general population and indicates half of respondents had a worse score. OBJECTIVE MEASURES WITH LEVEL OF FUNCTION: LE Strength R LE Strength: Grossly 4/5 except below L LE Strength: Grossly 4/5 except below R Hip Flexion (L2): 3+/5 R Hip ABduction: 3/5 L Hip Flexion (L2): 3+/5 L Hip ABduction: 3/5 Mobility Mobility Comments: Slower mobility from sit to supine, and other bed/rolling mobility. Gait Weight Bearing Status: FWB Gait: Independent Gait Device: None Gait Observation: Waddle. Not much foot clearance during advancement. B Trendelenburg. Functional Performance Test Results Assistive Device: None 30 Second Chair Stand Test: 9 reps (Use of B UE's on Arm Rest) 5 Times Sit to Stand Test : 14.53 sec (Use of B UE's on Arm Rest) Timed Up and Go (sec): 11.75 sec 4 Stage Balance Test Narrow base of support (sec): 30 sec (30 Sec EO & EC.) Semi-tandem base of support (sec): 10 sec (10 Sec EO & EC. EC with slight inc in sway.) Tandem base of support (sec): 10 sec (10 EO. 5 EC, increased sway) Single leg stance - right (sec): 5 sec Single leg stance - left (sec): 2 sec Dynamic Gait Index Gait level surface : 2 - Mild impairment- walks 20' uses assist device, slower speed, mild gait deviation Change in gait speed: 2 - Mild impairment- is able to change speed but demonstrates mild gait deviations or no gait deviations but unable to achieve a significant change in velocity, or uses an assistive device Gait and horizontal head turns: 2 - Mild impairment- performs R/L head turns smoothly with slight change in gait velocity, minor disruption to smooth gait path or uses assistive device Gait and vertical head turns: 2 - Mild impairment- performs up/ down head turns smoothly with slight change in gait velocity, minor disruption to smooth gait path or uses assistive device Gait and pivot: 3 - Normal- pivot turn safely within 3 sec, stops quickly, no loss of balance Step over obstacle: 2 - Mild impairment- is able to step over box, but must slow down and adjust steps to clear box Step around obstacle: 2 - Mild impairment- able to step around both cones, must slow down and adjust steps to clear cones Steps: 1 - Moderate impairment- 2 feet to a stair, must use rail Dynamic Gait Index Total: 16 Functional Reach - Stand Functional Reach Stand - Right (inches): 12 in Functional Reach Stand - Left (inches): 11.5 in Education: Education Learning Preferences: Demonstration, Explanation, Printed Materials Barriers: None Learning/educational needs: Procedure / Surgery, Home exercise program, Safety, Plan of Care, Gait Training Education Provided: Yes, see treatment interventions for education provided Education Provided To: Patient Education Mode/Type: Demonstration, Explanation/Discussion, Literature/Printed Materials Response to Education/Teach Back: States/Identifies TREATMENT: PT Treatment Interventions: Therapeutic Exercise, Self-Senior Living Management Evaluation Therapeutic Exercise: 1: Discussed exam findings, instructed and reviewed on HEP, handout given. Discussed normative values for functional testing. 2: *Seated March: x10 bilat. 3: *Seated Hip ADD Squeeze: x10, 5-sec holds. 4: *Supine SLR: x8 each. 5: *Standing Hip ABD: x10 each, discussed not leaning to get leg higher. Skilled Intervention: Patient was educated in proper exercise technique and purpose for exercises. Reviewed and educated patient on additions/changes for home exercise program as above (*). Skilled judgment was used in selection of appropriate interventions. Provided written instruction for home exercise program to facilitate proper performance and compliance. Correct performance of therapeutic exercises was facilitated with verbal cuing. Self-Senior Living Management: 1: *Discussed tripping hazards within the home and what precautions to take in regards to these to help decrease falls. 2: *Discussed why balance exercises are not to be completed at home. 3: *Educated patient in regards to balance anatomy; discussed leg strengthening, dysfunction errorsin her gait. Discussed how therapy can improve her balance and strength as well as decrease her falls. Skilled Intervention: Skilled judgment in the selection of proper modification for activity of daily living/home management based on clinical presentation, deficits, and needs. Reviewed patient specific diagnosis in relation to activities of daily living/home management. Billing * Evaluation Low Complexity: 1 Unit Therapeutic Exercise Treatment Minutes: 12 Self-Care/Home Management Treatment Minutes: 12 Skilled Treatment Time Minutes (timed and untimed codes): 45 Total Session Time (minutes): 50 Session Start Time : 1215 Session Stop Time : 1305 Rommel Win PT documented in [facility]Bar[facility] NoteHNO ID: [id number] Author: ROMMEL WIN PT Service: ? Author Type: Physical Therapist Type: Progress Notes Filed: 05/23/2024 13:53 Note Text: Episode Visit Count: 1 Therapist That Will Accept/Oversee The Plan Of Care: Rommel Win PT. Start of Care Date: 05/23/24 Onset Date: 05/11/23 Plan of Care Certification Date: 05/23/24 Next Certification Due Date: 07/04/24 Patient Identified by Name and Date of : Yes REHABILITATION AND SPORTS THERAPY PHYSICAL THERAPY EVALUATION PLAN OF CARE: Assessment: Chaparrita Barajas presents with chief complaint of balance/falls that interferes with stair negotiation, physical activities, walking in the community, standing (Walking with a laundry basket, Uneven Surfaces, Incline/Declines.) . The patient presents with impairments in ADL's, balance, gait, independence in exercise, overall function, strength, symptom management, and functional performance testing indicates risk for falls. PROMIS? (Patient-Reported Outcomes Measurement Information System) scores were reviewed and identified as a rehabilitation concern. Prognosis for therapy is Good due to: current objective clinical presentation . The patient will benefit from skilled therapy services to meet the goals established for this plan of care as noted below. Goals for Episode of Care: established 05/23/24 Patient reported outcome of physical function will increase T-score by a minimum 5 points. [place] in home exercise program. Patient will report no falls. Improve score on Timed Up and Go Test to <10 seconds to reflect decreased fall risk. Improve score on 30 Second Chair Stand to 11 repetitions to reflect decreased fall risk. Improve score on 5xSTS to <12.5sec without use of BUE to indicate increased bilat leg strength. Increase strength of BLE to 4+/5 in order to decrease fall risk and improve overall activity tolerance. Patient Goals: Improve balance and decrease falls. Time Frame for Goals and Treatment : 07/04/24 Planned Interventions, Frequency, and Duration: Current Frequency: 2x/week Duration: 4 weeks Total Number of Visits Planned: 8 Planned Treatment Interventions: Therapeutic exercise (88740), Neuromuscular re-education (08466), Manual therapy (82790), Therapeutic activities (62792), Self-jail management (60393), Patient/Family/Caregiver Education PLAN FOR NEXT VISIT: Review, correct and progress HEP to tolerance. Static AND dynamic gait. B LE OC Strength. Patient demonstrates good understanding of plan of care and treatment. The above goals and plan of care were discussed and agreed upon by patient/family. SUBJECTIVE: Here for balance AND falls. States falling started 05/11/2023. Last fall early March 2024. Every time she has fallen, she is outside on cement. Falls are generally caused by a trip, states catches her toes. States B LE are weak. Has a dog that is 15-years old. L Knee and Back can be in pain so she shys away from increased activity. Has not tried using an AD following the falls. States she is in continous pain due to severe arthritis, see's pain mgmt. Patient Goals: Improve balance and decrease falls. Functional Limitations: stair negotiation, physical activities, walking in the community, standing (Walking with a laundry basket, Uneven Surfaces, Incline/Declines.) Prior Level of Function: Independent without limitations Relevant History Past Relevant Surgical Conditions: Total Knee Replacement-Right, Total Knee Replacement-Left, Total Hip Replacement-Right, Total Hip Replacement-Left, Total Shoulder Replacement-Left, Total Shoulder Replacement-Right Employment: Retired Home Environment Patient Lives With: Spouse, Family (Sister) Assistance Available: PRN Home Type: [place] Entry To Home: Ramp (in garage) Intake Information: Prescription present Previous Treatment: None Falls Interview: Two or more falls in the last year, Comments Falls Intervention: More thorough falls assessment to be performed, Instructed patient on safety and use of assistive device and awareness in regards to falls prevention. Falls Comments: No ED visit following falls. However, multiple bumps and bruises from falls. Falls History # of falls in past year: 8 # of falls resulting in an injury in past year: 5 Pain: Pain Pain Level: 5 Pain Location: Low Back/Lumbar Spine- Midline, Knee - Left, Knee - Right Description: Aching Frequency: Continuous PROMIS Scales 05/23/2024 Higher is Better Phys Func - Score 33 (moderate dysfunction) Phys Func - Percentile 4 Self-Eff Symptom - Score 42 (Average) Self-Eff Symptom - Percentile 21 T-scores: mean of general population = 50. 5 points is clinically meaningfully difference Percentiles provide an indication of how the patient's score ranks in relation to the general population. Higher percentile rankings indicate better function/quality of life. 50th percentile is the (more content not included)... [facility]01-06-2025 Telephone encounter Note* Telephone Encounter - Rocio Brennan LPN - 05/16/2024 1:14 PM EST The patient has been identified by name and date of : Yes Caregiver verified no other encounters exist for this prescription request: Yes Caregiver confirmed with patient/requestor that no other refills are due, in the near future, with this provider at this time: Yes The last office visit in the department: 04/25/2024 Does the patient have a future office visit with this provider/department: Yes 06/03/2024 Requested Prescriptions Pending Prescriptions Disp Refills lisinopril (ZESTRIL) 20 mg tablet 90 tablet 3 Sig: Take 1 tablet by mouth once daily. carvedilol (COREG) 12.5 mg tablet 180 tablet 3 Sig: Take 1 tablet by mouth two times a day. rosuvastatin (CRESTOR) 5 mg tablet 90 tablet 3 Sig: Take 1 tablet by mouth once daily. cephALEXin (KEFLEX) 250 mg capsule 90 capsule 3 Sig: Take 1 capsule by mouth once daily. pantoprazole DR (PROTONIX) 40 mg tablet 90 tablet 3 Sig: Take 1 tablet by mouth once daily. Patient said takes Cephalexin to prevent re-occurring UTI Rocio Brennan LPN May 16, 2024 1:19 PM [facility]01-06-[facility] Miscellaneous Notes* Telephone Encounter - Rocio Brennan LPN - 05/16/2024 1:14 PM EST The patient has been identified by name and date of : Yes Caregiver verified no other encounters exist for this prescription request: Yes Caregiver confirmed with patient/requestor that no other refills are due, in the near future, with this provider at this time: Yes The last office visit in the department: 04/25/2024 Does the patient have a future office visit with this provider/department: Yes 06/03/2024 Requested Prescriptions Pending Prescriptions Disp Refills lisinopril (ZESTRIL) 20 mg tablet 90 tablet 3 Sig: Take 1 tablet by mouth once daily. carvedilol (COREG) 12.5 mg tablet 180 tablet 3 Sig: Take 1 tablet by mouth two times a day. rosuvastatin (CRESTOR) 5 mg tablet 90 tablet 3 Sig: Take 1 tablet by mouth once daily. cephALEXin (KEFLEX) 250 mg capsule 90 capsule 3 Sig: Take 1 capsule by mouth once daily. pantoprazole DR (PROTONIX) 40 mg tablet 90 tablet 3 Sig: Take 1 tablet by mouth once daily. Patient said takes Cephalexin to prevent re-occurring UTI Rocio Brennan LPN May 16, 2024 1:19 PM documented in this encounterBar[facility]12-16-2024 Instructions* Patient Instructions* Sheri Hutchins MD - 04/25/2024 3:21 PM EST - Follow up with Dr. Barraza for evaluation of left knee and ankle pain after recent falls. - Physical therapy consult for fall prevention has been ordered; start after the new year. - Continue to monitor left leg swelling from DVT; follow up with certified ophthalmic technologist Dr. Ellison for further evaluation and potential blood thinner management. - Follow up with urologist Dr. Hill as directed for follow up on history of hematuria due to UTI documented in this encounterBarber[facility]12-16-2024 NoteHNO ID: [id number] Author: SHERI HUTCHINS MD Service: ? Author Type: Physician Type: Progress Notes Filed: 04/25/2024 15:25 Note Text: This note was created using Keyprriter. Julia Barajas is a 69 year old female. Patient presents with: Established Patient: Frequent falls SUBJECTIVE: Chaparrita Barajas is a 69 year old year old lady here today for follow up appointment for review of medical conditions: falls. Chaparrita Barajas is a 69-year-old female with a history of multiple falls, DVT, and left TKA, presenting for evaluation of recent falls and associated pain. Chaparrita reports experiencing 8 falls since May 11 of this year, with the most recent fall resulting in facial trauma. She attributes the falls to her toe getting caught on steps, leading to loss of balance. The most recent fall caused significant bruising on her cheek, which is now resolving. During the last fall, she landed on her left knee, which has a history of TKA. She reports that her knee is currently stable but painful. Additionally, she experiences left ankle pain, which predates the falls. Chaparrita has a history of DVT and is currently managed with an IVC filter due to previous episodes of hematuria, which were attributed to a UTI. She is under the care of a certified ophthalmic technologist and a urologist to determine the appropriate anticoagulation therapy. Recent ultrasound imaging shows resolving DVT, but she continues to experience left leg swelling. Recent lab results show normal antithrombin activity, protein C function, and protein S levels, with a negative Factor V Leiden test. 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 venlafaxine ER (EFFEXOR XR) 75 mg 24 hr capsule Take 1 capsule by mouth two times a day. lisinopril (ZESTRIL) 20 mg tablet Take 1 tablet by mouth once daily. carvedilol (COREG) 12.5 mg tablet Take 1 tablet by mouth two times a day. metFORMIN ER (GLUCOPHAGE XR) 500 mg 24 hr tablet Take 2 tablets by mouth daily with breakfast. (Patient taking differently: Take 500 mg by mouth daily with breakfast.) rosuvastatin (CRESTOR) 5 mg tablet Take 1 tablet by mouth once daily. pantoprazole DR (PROTONIX) 40 mg tablet Take 1 tablet by mouth once daily. blood sugar diagnostic (BLOOD GLUCOSE TEST) test strip Test blood sugar(s) one time daily. Dx: Type 2 DM - Controlled E11.9 Insulin: No Cranberry 500 mg cap Take 1 capsule by mouth twice daily. oxyCODONE ER (OXYCONTIN) 10 mg 12 hr tablet Take 10 mg by mouth every 12 hours. morphine IR 15 mg tablet Take 15 mg by mouth twice daily. L. acidophilus-L. rhamnosus (PROBIOTIC) 15 billion cell cap Take 1 scoop by mouth once daily. therapeutic multivitamin (THERA VITAMIN) tablet Take 1 tablet by mouth once daily. Vit C-Nubbur-Spuiuf-Grape 50-301-61-75-20 mg cap Take by mouth. CALCIUM CARBONATE/VITAMIN D2 (CALCIUM + VITAMIN D ORAL) Take by mouth once daily. Gummies, calcium 1000 mg and vit d 1600 IU aspirin(ADULT ASPIRIN EC LOW STRENGTH 81 MG TAB, DELAYED RELEASE) Take by mouth twice daily. ELIQUIS DVT-PE TREAT 30D START 5 mg (74 tabs) Take 2 tablets by mouth two times a day. (Patient not taking: Reported on 03/11/2024) apixaban (ELIQUIS) 5 mg tab(s) Take 1 tablet by mouth two times a day. To start after the starter pack (Patient not taking: Reported on 03/11/2024) albuterol HFA (PROAIR HFA) 90 mcg/actuation inhaler Inhale 2 Puffs as instructed every 6 hours as needed. (Patient not taking: Reported on 02/17/2024) benzonatate (TESSALON PERLES) 100 mg capsule Take 2 capsules by mouth three times a day as needed. (Patient not taking: Reported on 02/17/2024) No current facility-administered medications for this visit. Review of Systems Objective BP 132/88 Pulse 77 Temp 37.3 ?C (99.2 ?F) Resp 14 Wt 85.3 kg (188 lb 0.8 oz) SpO2 97% BMI 33.52 kg/m? Physical Exam Constitutional: Appearance: Normal appearance. HENT: Head: Comments: Signs of resolving contusion rig (more content not included)... [facility]12-16-2024 History of Present illness Narrative* Sheri Hutchins MD - 04/25/2024 2:59 PM EST This note was created using Foremostter. Subjective Chaparrita Barajas is a 69 year old female. Patient presents with: Established Patient: Frequent falls SUBJECTIVE: Chaparrita Barajas is a 69 year old year old lady here today for follow up appointment for review of medical conditions: falls. Chaparrita Barajas is a 69-year-old female with a history of multiple falls, DVT, and left TKA, presenting for evaluation of recent falls and associated pain. Chaparrita reports experiencing 8 falls since May 11 of this year, with the most recent fall resulting in facial trauma. She attributes the falls to her toe getting caught on steps, leading to lossof balance. The most recent fall caused significant bruising on her cheek, which is now resolving. During the last fall, she landed on her left knee, which has a history of TKA. She reports that herknee is currently stable but painful. Additionally, she experiences left ankle pain, which predatesthe falls. Chaparrita has a history of DVT and is currently managed with an IVC filter due to previous episodes of hematuria, which were attributed to a UTI. She is under the care of a certified ophthalmic technologist and a urologistto determine the appropriate anticoagulation therapy. Recent ultrasound imaging shows resolving DVT, but she continues to experience left leg swelling. Recent lab results show normal antithrombin activity, protein C function, and protein S levels, with a negative Factor V Leiden test. 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 venlafaxine ER (EFFEXOR XR) 75 mg 24 hr capsule Take 1 capsule by mouth two times a day. lisinopril (ZESTRIL) 20 mg tablet Take 1 tablet by mouth once daily. carvedilol (COREG) 12.5 mg tablet Take 1 tablet by mouth two times a day. metFORMIN ER (GLUCOPHAGE XR) 500 mg 24 hr tablet Take 2 tablets by mouth daily with breakfast. (Patient taking differently: Take 500 mg by mouth daily with breakfast.) rosuvastatin (CRESTOR) 5 mg tablet Take 1 tablet by mouth once daily. pantoprazole DR (PROTONIX) 40 mg tablet Take 1 tablet by mouth once daily. blood sugar diagnostic (BLOOD GLUCOSE TEST) test strip Test blood sugar(s) one time daily. Dx: Type2 DM - Controlled E11.9 Insulin: No Cranberry 500 mg cap Take 1 capsule by mouth twice daily. oxyCODONE ER (OXYCONTIN) 10 mg 12 hr tablet Take 10 mg by mouth every 12 hours. morphine IR 15 mg tablet Take 15 mg by mouth twice daily. L. acidophilus-L. rhamnosus (PROBIOTIC) 15 billion cell cap Take 1 scoop by mouth once daily. therapeutic multivitamin (THERA VITAMIN) tablet Take 1 tablet by mouth once daily. Vit A-Twixll-Xwpxcz-Grape 36-120-21-75-20 mg cap Take by mouth. CALCIUM CARBONATE/VITAMIN D2 (CALCIUM + VITAMIN D ORAL) Take by mouth once daily. Gummies, calcium 1000 mg and vit d 1600 IU aspirin(ADULT ASPIRIN EC LOW STRENGTH 81 MG TAB, DELAYED RELEASE) Take by mouth twice daily. ELIQUIS DVT-PE TREAT 30D START 5 mg (74 tabs) Take 2 tablets by mouth two times a day. (Patient nottaking: Reported on 03/11/2024) apixaban (ELIQUIS) 5 mg tab(s) Take 1 tablet by mouth two times a day. To start after the starter pack (Patient not taking: Reported on 03/11/2024) albuterol HFA (PROAIR HFA) 90 mcg/actuation inhaler Inhale 2 Puffs as instructed every 6 hours as needed. (Patient not taking: Reported on 02/17/2024) benzonatate (TESSALON PERLES) 100 mg capsule Take 2 capsules by mouth three times a day as needed. (Patient not taking: Reported on 02/17/2024) No current facility-administered medications for this visit. Review of Systems Objective BP 132/88 Pulse 77 Temp 37.3 C (99.2 F) Resp 14 Wt 85.3 kg (188 lb 0.8 oz) SpO2 97% BMI33.52 kg/m Physical Exam Constitutional: Appearance: Normal appearance. HENT: Head: Comments: Signs of resolving contusion right side of face Eyes: Pupils: Pupils are equal, round, and reactive to light. Musculoskeletal: Right lower leg: No edema. Left lower le+ Edema present. Comments: Tender left knee from contusion Neurological: Mental Status: She is alert. Gait: Gait abnormal (antalgic gait). Comments: Decreased strength with dorsiflexion of left ankle but attributes to pain Assessment and Plan - Follow up with Dr. Barraza for evaluation of left knee and ankle pain after recent falls. - Physical therapy consult for fall prevention has been ordered; start after the new year. - Continue to monitor left leg swelling from DVT; follow up with certified ophthalmic technologist Dr. Ellison for further evaluation and potential blood thinner management. - Follow up with urologist Dr. Hill as directed for follow up on history of hematuria due to UTI I spent a total of 25 minutes on the date of the service which included [id number] patient care, completing clinical documentation, obtaining and/or reviewing separately obtained history, performing a medically appropriate examination, and counseling and educating the patient/family/caregiver. Sheri Hutchins MD documented in this encounterBar[facility]11-01-[facility]24 Instructions* Patient Instructions* Sheri Hutchins MD - 03/11/2024 6:21 PM EDT - Take an iron supplement (iron glycinate recommended) on Thursday, Thursday, and Thursday to address mild anemia. Taking it with vitamin C can improve absorption. - Stay hydrated to prevent further complications. - Keep moving as much as possible to improve circulation and reduce the risk of further blood clots. - Follow up with hematology on the to discuss further treatment for blood clots and anemia. - Schedule an appointment with a urologist to evaluate the cause of hematuria and determine if it is safe to resume blood thinners. - Follow up with Dr. Chandler as needed. documented in this encounterBarberton [facility]11-01-2024 NoteHNO ID: [id number] Author: SHERI HUTCHINS MD Service: ? Author Type: Physician Type: Progress Notes Filed: 03/21/2024 23:09 Note Text: This note was created using Foremostter. Subjective Chaparrita Barajas is a 68 year old female. Patient presents with: Hospital F/U: [facility] hospital follow up SUBJECTIVE: Chaparrita Barajas is a 68 year old year old lady here today for hospital follow up appointment for review of medical conditions. Chaparrita Barajas is a 68-year-old female with a history of multiple DVTs, presenting for follow-up after a recent hospitalization for an extensive DVT and hematuria. Chaparrita was recently hospitalized after experiencing severe dehydration secondary to a flu-like illness with emesis and diarrhea. She noted progressively decreasing blood pressure readings at home, prompting a call to the nurse continuous loft operator, who advised her to go to the emergency room. Initial blood tests revealed low hematocrit, leading to a CT scan that identified an extensive DVT extending from her ankle to her groin. She was taken to surgery the same day for placement of an IVC filter due to concurrent hematuria, which precluded anticoagulation therapy. She reports that the hematuria resolved before discharge. Two days after her initial discharge, she noticed significant swelling in her left leg, prompting a return to the emergency room. A Doppler ultrasound confirmed the presence of a DVT extending from her ankle to the back of her knee. A subsequent CT scan revealed that the clot extended further, leading to the decision to place the IVC filter. 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 She has also experienced DVTs in both legs and her left arm, the latter occurring after a shoulder replacement. She has been on various anticoagulants, including Eliquis, which she associates with the onset of hematuria. She expresses reluctance to resume Eliquis and has a history of being on Coumadin, which she also prefers to avoid. She reports ongoing swelling in her left leg and mild anemia, with a recent hemoglobin level of 11.9 g/dL. She has a follow-up appointment with hematology on the and plans to schedule an appointment with urology. She is currently on a low-dose antibiotic for recurrent UTIs, which she believes were exacerbated by her recent illness. She denies current hematuria and is able to ambulate, reporting that she is up and down approximately 25 times a day. 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 venlafaxine ER (EFFEXOR XR) 75 mg 24 hr capsule Take 1 capsule by mouth two times a day. lisinopril (ZESTRIL) 20 mg tablet Take 1 tablet by mouth once daily. carvedilol (COREG) 12.5 mg tablet Take 1 tablet by mouth two times a day. metFORMIN ER (GLUCOPHAGE XR) 500 mg 24 hr tablet Take 2 tablets by mouth daily with breakfast. (Patient taking differently: Take 500 mg by mouth daily with breakfast.) rosuvastatin (CRESTOR) 5 mg tablet Take 1 tablet by mouth once daily. pantoprazole DR (PROTONIX) 40 mg tablet Take 1 tablet by mouth once daily. blood sugar diagnostic (BLOOD GLUCOSE TEST) test strip Test blood sugar(s) one time daily. Dx: Type 2 DM - Controlled E11.9 Insulin: No Cranberry 500 mg cap Take 1 capsule by mouth twice daily. oxyCODONE ER (OXYCONTIN) 10 mg 12 hr tablet Take 10 mg by mouth every 12 hours. morphine IR 15 mg tablet Take 15 mg by mouth twice daily. L. acidophilus-L. rhamnosus (PROBIOTIC) 15 billion cell cap Take 1 scoop by mouth once daily. therapeutic multivitamin (THERA VITAMIN) tablet Take 1 tablet by mouth once daily. Vit X-Ahdduv-Jrjdvm-Grape 55-438-58-75-20 mg cap Take by mouth. CALCIUM CARBONATE/VITAMIN D2 (CALCIUM + VITAMIN D ORAL) Take by mouth once daily. Gummies, calcium 1000 mg and vit d 1600 IU aspirin(ADULT ASPIRIN EC LOW STRENGTH 81 MG TAB, DELAYED RELEASE) Take by (more content not included)...[facility]11-01-2024 History of Present illness Narrative* Sheri Hutchins MD - 03/11/2024 5:53 PM EDT This note was created using Keyprriter. Subjective Chaparrita Barajas is a 68 year old female. Patient presents with: Hospital F/U: [facility] hospital follow up SUBJECTIVE: Chaparrita Barajas is a 68 year old year old lady here today for hospital follow up appointment for review of medical conditions. Chaparrita Barajas is a 68-year-old female with a history of multiple DVTs, presenting for follow-up after a recent hospitalization for an extensive DVT and hematuria. Chaparrita was recently hospitalized after experiencing severe dehydration secondary to a flu-like illness with emesis and diarrhea. She noted progressively decreasing blood pressure readings at home, prompting a call to the nurse continuous loft operator, who advised her to go to the emergency room. Initial blood tests revealed low hematocrit, leading to a CT scan that identified an extensive DVT extending from her ankle to her groin. She was taken to surgery the same day for placement of an IVC filter due to concurrent hematuria, which precluded anticoagulation therapy. She reports that the hematuria resolved before discharge. Two days after her initial discharge, she noticed significant swelling in her left leg, prompting areturn to the emergency room. A Doppler ultrasound confirmed the presence of a DVT extending from her ankle to the back of her knee. A subsequent CT scan revealed that the clot extended further, leading to the decision to place the IVC filter. 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 She has also experienced DVTs in both legs andher left arm, the latter occurring after a shoulder replacement. She has been on various anticoagulants, including Eliquis, which she associates with the onset of hematuria. She expresses reluctance to resume Eliquis and has a history of being on Coumadin, which she also prefers to avoid. She reports ongoing swelling in her left leg and mild anemia, with a recent hemoglobin level of 11.9 g/dL. She has a follow-up appointment with hematology on the and plans to schedule an appointment with urology. She is currently on a low-dose antibiotic for recurrent UTIs, which she believes were exacerbated by her recent illness. She denies current hematuria and is able to ambulate, reporting that she is up and down approximately 25 times a day. 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 venlafaxine ER (EFFEXOR XR) 75 mg 24 hr capsule Take 1 capsule by mouth two times a day. lisinopril (ZESTRIL) 20 mg tablet Take 1 tablet by mouth once daily. carvedilol (COREG) 12.5 mg tablet Take 1 tablet by mouth two times a day. metFORMIN ER (GLUCOPHAGE XR) 500 mg 24 hr tablet Take 2 tablets by mouth daily with breakfast. (Patient taking differently: Take 500 mg by mouth daily with breakfast.) rosuvastatin (CRESTOR) 5 mg tablet Take 1 tablet by mouth once daily. pantoprazole DR (PROTONIX) 40 mg tablet Take 1 tablet by mouth once daily. blood sugar diagnostic (BLOOD GLUCOSE TEST) test strip Test blood sugar(s) one time daily. Dx: Type2 DM - Controlled E11.9 Insulin: No Cranberry 500 mg cap Take 1 capsule by mouth twice daily. oxyCODONE ER (OXYCONTIN) 10 mg 12 hr tablet Take 10 mg by mouth every 12 hours. morphine IR 15 mg tablet Take 15 mg by mouth twice daily. L. acidophilus-L. rhamnosus (PROBIOTIC) 15 billion cell cap Take 1 scoop by mouth once daily. therapeutic multivitamin (THERA VITAMIN) tablet Take 1 tablet by mouth once daily. Vit H-Iohhkh-Vawgaj-Grape 73-339-56-75-20 mg cap Take by mouth. CALCIUM CARBONATE/VITAMIN D2 (CALCIUM + VITAMIN D ORAL) Take by mouth once daily. Gummies, calcium 1000 mg and vit d 1600 IU aspirin(ADULT ASPIRIN EC LOW STRENGTH 81 MG TAB, DELAYED RELEASE) Take by mouth twice daily. ELIQUIS DVT-PE TREAT 30D START 5 mg (74 tabs) Take 2 tablets by mouth two times a day. (Patient nottaking: Reported on 03/11/2024) apixaban (ELIQUIS) 5 mg tab(s) Take 1 tablet by mouth two times a day. To start after the starter pack (Patient not taking: Reported on 03/11/2024) albuterol HFA (PROAIR HFA) 90 mcg/actuation inhaler Inhale 2 Puffs as instructed every 6 hours as needed. (Patient not taking: Reported on 02/17/2024) benzonatate (TESSALON PERLES) 100 mg capsule Take 2 capsules by mouth three times a day as needed. (Patient not taking: Reported on 02/17/2024) No current facility-administered medications for this visit. Review of Systems Objective BP 128/78 Pulse 81 Temp 36.8 C (98.3 F) Resp 16 Wt 84.7 kg (186 lb 11.7 oz) SpO2 98% BMI 33.29 kg/m Physical Exam Constitutional: Appearance: Normal appearance. HENT: Head: Normocephalic. Eyes: Conjunctiva/sclera: Conjunctivae normal. Cardiovascular: Rate and Rhythm: Normal rate and regular rhythm. Heart sounds: Normal heart sounds. Pulmonary: Effort: Pulmonary effort is normal. Breath sounds: Normal breath sounds. Abdominal: Tenderness: Guarding: .aisap. Musculoskeletal: Left lower leg: Edema present. Skin: General: Skin is warm and dry. Neurological: General: No focal deficit present. Mental Status: She is alert and oriented to person, place, and time. Psychiatric: Mood and Affect: Mood normal. Behavior: Behavior normal. Thought Content: Thought content normal. Judgment: Judgment normal. Latest Ref Rng 06/23/2022 10/21/2022 04/17/2023 12/25/2023 02/16/2024 WBC 3.70 - 11.00 k/uL 9.20 9.60 8.86 10.79 7.69 RBC 3.90 - 5.20 m/uL 4.63 4.52 4.87 4.65 4.21 Hemoglobin 11.5 - 15.5 g/dL 14.1 13.7 14.0 13.9 12.4 Hematocrit 36.0 - 46.0 % 42.4 43.4 45.1 42.5 39.5 MCV 80.0 - 100.0 fL 91.6 96.0 92.6 91.4 93.8 MCH 26.0 - 34.0 pg 30.5 30.3 28.7 29.9 29.5 MCHC 30.5 - 36.0 g/dL 33.3 31.6 31.0 32.7 31.4 RDW-CV 11.5 - 15.0 % 12.3 12.4 12.5 12.6 12.7 Platelet Count 150 - 400 k/uL 314 376 326 300 352 MPV 9.0 - 12.7 fL 9.7 11.0 10.0 9.6 9.6 Neut% % 61.9 Abs Neut (ANC) 1.45 - 7.50 k/uL 4.77 Lymph% % 25.9 Abs Lymph 1.00 - 4.00 k/uL 1.99 Traverse% % 6.9 Abs Traverse <0.87 k/uL 0.53 Eosin% % 4.2 Abs Eosin <0.46 k/uL 0.32 Baso% % 0.8 Abs Baso <0.11 k/uL 0.06 Immature Gran % % 0.3 IMMATURE GRANS (ABS) <0.10 k/uL <0.03 NRBC /100 WBC 0.0 Absolute nRBC <0.01 k/uL <0.01 <0.01 <0.01 <0.01 <0.01 DTYPE Auto Protein, Total 6.3 - 8.0 g/dL 7.1 7.1 7.0 6.5 Albumin 3.9 - 4.9 g/dL 4.1 4.0 4.0 3.7 (L) Calcium 8.5 - 10.2 mg/dL 9.9 9.6 9.8 9.2 Bilirubin, Total 0.2 - 1.3 mg/dL 0.4 0.4 0.7 0.5 Alkaline Phosphatase 34 - 123 U/L 82 103 95 76 AST 13 - 35 U/L 15 20 16 20 ALT 7 - 38 U/L 9 17 12 12 Glucose 74 - 99 mg/dL 147 (H) 109 (H) 124 (H) 113 (H) BUN 7 - 21 mg/dL 13 11 14 8 Creatinine 0.58 - 0.96 mg/dL 1.04 (H) 0.94 1.06 (H) 1.01 (H) Sodium 136 - 144 mmol/L 142 140 137 140 Potassium 3.7 - 5.1 mmol/L 4.4 4.5 4.8 4.4 Chloride 98 - 107 mmol/L 100 102 100 102 CO2 22 - 30 mmol/L 27 27 26 28 Anion Gap 8 - 15 mmol/L 15 11 11 10 eGFR >=60 mL/min/1.73m 58 (L) 65 57 (L) 60 Color Yellow Red ! Clarity Clear Cloudy ! Glucose, Urine Negative Negative Bilirubin, Urine Negative Negative Ketones, Urine Negative Negative Specific [place], Ur 1.005 - 1.030 1.020 Hemoglobin/Blood,Ur Negative 3+ ! pH, Urine 5.0 - 8.0 6.5 Protein, Urine -- Urobilinogen 0.2-1.0 EU/dL 0.2 EU/dL Nitrites Negative Negative Leukest Negative Negative WBC, Urine 0-5 /HPF 0-5 /HPF RBC, Urine 0-3 /HPF >25 /HPF ! Cholesterol, Total <200 mg/dL 121 127 Triglyceride <150 mg/dL 104 87 HDL Cholesterol >39 mg/dL 47 51 Non HDL Cholesterol <130 mg/dL 74 76 Fasting Time hrs 15 16 VLDL Cholesterol <30 mg/dL 21 17 TC:HDL Ratio <5.10 2.57 2.49 LDL Cholesterol <100 mg/dL 53 59 LDL:HDL Ratio <2.54 1.13 1.16 Creatinine, Ur Random (UCRR) 20.0 - 300.0 mg/dL 125.7 Albumin, Urine Random mg/L <12.0 Albumin/Creat Ratio <30 mg/g <10 Hemoglobin A1C 4.3 - 5.6 % 6.0 (H) 6.1 (H) 6.3 (H) Estimated Average Glucose mg/dL 126 128 134 Tot Pro S 74 - 156 % 147 Free Pro S 55 - 148 % 109 Magnesium 1.7 - 2.3 mg/dL 1.7 1.9 Uric Acid 2.5 - 6.6 mg/dL 5.7 Culture <10,000 CFU/ml Normal urogenital bobby Pro C Fun 76 - 147 % 106 Antithrombin Assay 84 - 138 % 122 Legend: (H) High (L) Low ! Abnormal Assessment and Plan # Acute deep vein thrombosis (DVT) of other specified vein of left lower extremity (HCC) (I82.492) # Left leg swelling (M79.89) - Extensive DVT from ankle to groin confirmed via CT scan on February 22; IVC filter placed by . - Swelling persists due to impaired venous return; advised elevation of the affected limb. - Hematology follow-up with Dr. Darius Donohue scheduled for March 15 to discuss anticoagulation management. - Educated on the natural resolution process of DVTs and the importance of maintaining mobility andhydration to prevent further clot formation. # Gross hematuria (R31.0) # Acute cystitis with hematuria (N30.01) - Hematuria resolved during hospitalization; previously on Eliquis, which may have exacerbated bleeding. - Chronic UTIs managed with low-dose Keflex; recent UTI likely secondary to severe diarrhea and vomiting. - Advised to schedule a urology appointment to evaluate for potential bladder pathology contributing to hematuria. # Anemia, unspecified type (D64.9) - Mild anemia with hemoglobin at 11.9 g/dL; likely secondary to recent hematuria and acute illness. - Recommended oral iron supplementation (iron glycinate) Thursday, Thursday, Thursday with vitamin C to enhance absorption. - Monitor hemoglobin levels; follow-up labs to be coordinated with hematology. # Recurrent acute deep vein thrombosis (DVT) of lower extremity, unspecified laterality (HCC) (I82.409) - History of multiple DVTs in both lower extremities and left arm. - Hematology to evaluate for underlying hypercoagulable state and determine long-term anticoagulation strategy. # Controlled type 2 diabetes mellitus without complication, without long-term current use of insulin (HCC) (E11.9) - Glucose levels stable; continue current management. # Presence of IVC filter (Z95.828) - IVC filter placed to prevent pulmonary embolism due to extensive DVT and concurrent hematuria. - Discussed with patient the potential for the filter to remain indefinitely; hematology to providefurther guidance. Sheri Hutchins MD [facility] Telephone encounter Note * Telephone Encounter - Silvia Powell LPN - 02/25/2024 9:49 AM EDT Fax rec'd from [facility]. They are asking for complete medical records(last 5 years) to be faxed to [facility]. This was faxed to [facility] medical records release. [facility]10-17-[facility] Miscellaneous Notes* Telephone Encounter - Silvia Powell LPN - 02/25/2024 9:49 AM EDT Fax rec'd from [facility]. They are asking for complete medical records(last 5 years) to be faxed to [facility]. This was faxed to [facility] medical records release. documented in this encounterBarberton [facility]10-16-2024 [facility] Medical Records Department [address] [place] [address] Discharge Summary 02/24/24 1351 MR#: [id number] Acct: [id number] Name: CHAPARRITA BARAJAS Rep #: [id number] : 1955 68 From: Karlie Ann MD PCP: Dr. Sheri Hutchins MD Status:ADM EUGENIE Location: [place] [address] Providers Date of Admission: 02/23/24 Date of Discharge: 02/24/24 Primary Care Physician: Dr. Sheri Hutchins MD Consultations 02/23/24 20:40 Consult: Vascular Surgery Routine Consulting Provider: Vicente Chandler Reason for Consult: DVT, Couldn't toleate ACs EMERGENT Consult: No MD Notified: Yes Date Notified: 02/23/24 Time Notified: 18:00 Method of Notification: ED Physician Initiated Reason For Visit: HEMATURIA DUE TO ELIQUIS Diagnosis Discharge Diagnosis (1) DVT (deep venous thrombosis): Status: Acute Code(s): I82.409 - Acute embolism and thrombosis of unspecified deep veins of unspecified lower extremity (2) Hematuria: Status: Acute Code(s): R31.9 - Hematuria, unspecified (3) S/P IVC filter: Status: Acute Code(s): Z95.828 - Presence of other vascular implants and grafts Plan #Hematuria due to anticoagulant use * was put on eliquis after being diagnosed with DVT of the RLE earlier in February 2024. * started having hematuria. * for IVC filter insertion today * #DVT of the LLE * was diagnosed with DVT on 02/14/2024 after she presented to ED with swelling of the LLE, and Medications at Discharge Home Medications atenolol 50 mg tablet 50 mg PO DAILY 04/18/14 calcium 600 mg-D3 800 unit-mag 40 mo-vzsq-qely-zuly-boron chew tablet (Caltrate 600-D Plus Minerals) 1 ea PO DAILY 04/18/14 lisinopril 5 mg tablet 20 mg PO DAILY 04/18/14 oxycodone 15 mg tablet,crush resistant,extended release 12 hr (OxyContin) 15 mg PO BID Pain 04/18/14 cephalexin 250 mg capsule (Keflex) 250 mg PO DAILY 12/17/15 cranberry extract 200 mg capsule 150 mg PO DAILY 12/17/15 multivitamin with folic acid 400 mcg tablet (Thera) 1 tab PO DAILY 12/17/15 pantoprazole 40 mg tablet,delayed release 40 mg PO DAILY 12/17/15 benzonatate 100 mg capsule 200 mg PO TID PRN PRN cough 02/23/24 carvedilol 12.5 mg tablet 12.5 mg PO BID 02/23/24 metformin 500 mg tablet,extended release 24 hr 500 mg PO BID 02/23/24 morphine 15 mg tablet,extended release 15 mg PO Q12.TCU 02/23/24 oxycodone 10 mg tablet 10 mg PO BID PRN PRN pain 02/23/24 rosuvastatin 5 mg tablet (Crestor) 5 mg PO QHS cholestrol 02/23/24 venlafaxine 75 mg capsule,extended release 24 hr (Effexor XR) 75 mg PO BID 02/23/24 Hospital Course Operations None Procedures IVC filter placement Summary of Care Provided Minutes Spent on Discharge: 55 Hospital Course: Patient is a 68-year-old female with a past medical history as outlined who was admitted to the ED on 02/23/2024 on account of hematuria. Patient had been diagnosed with DVT in the left lower extremity on 02/14/2024 who is presented to the ED with left lower extremity swelling. Duplex of the left lower extremity that had shown diffuse left lower extremity DVT. She had been started on Eliquis but started having hematuria. The hematuria had gradually worsened he subsequently felt weak and tired so she decided to come into the ED. 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 However, a perusal of the chart showed that she had had one documented episode of dVT on 02/14/2024 and another documented episode of superficial thrombophlebitis on 11/14/2012. . There is no documentation of any other DVTs. She was admitted and managed for hematuria due to anticoagulant use. Her hemoglobin was 10.7.Vascular surgery was consulted and she had IVC filter inserted. Patient was counseled that her history was not very clear, with her saying she had 6 previous DVTs, and had been on coumadin once, and on lovenox for just one week. Explained to patient that she may likely have had superficial thrombophlebitis for which there was 1 episode documented in her chart. She does not have any family history of recurrent DVTs or PEs and has not had any spontaneous abortions in the past. She is never seen a certified ophthalmic technologist. Patient counseled to follow-up with her PCP will be referred to hematology for further evaluation and further workup as needed. She was counseled that the IVC would prevent DVTs from migrating to the pulmonary arteries but she was counseled that she was still at risk for developing a de swapna PE in light of her not being on blood thinners. Patient expressed understanding. Of note, her hematuria had largely resolved and urine had cleared significantly. Of note, urinalysis showed 2+ bacteria and 100 leukocyte esterase. However he had had 3+ urine bacteria on 02/07/2024 with more than 100 WBC at the previous lab. She does not have any urinary symptoms now so the 2+ bacteria may be chronic colonization or asymptomatic bacteriuria. The hematuria (more content not included)...[facility]10-15-2024 Telephone encounter Note* Telephone Encounter - Zamzam Cobian LPN - 02/23/2024 4:50 PM EDT Pt returned the call & was notified of provider's message. Pt states she is currently at [facility] ER, she went around 12:30 today. Pt asked to call with an update after discharge. Zamzam Cobian LPN [facility]10-15-2024 Miscellaneous Notes* Telephone Encounter - Zamzam Cobian LPN - 02/23/2024 4:50 PM EDT Pt returned the call & was notified of provider's message. Pt states she is currently at [facility] ER, she went around 12:30 today. Pt asked to call with an update after discharge. Zamzam Cobian LPN * Telephone Encounter - Joanna Shah RN - 02/23/2024 4:36 PM EDT Called and left a voicemail for the Patient to call back and ask for a nurse to receive the providers message. Joanna Shah RN * Telephone Encounter - Sheri Hutchins MD - 02/23/2024 3:47 PM EDT Agree with ER evaluation * Telephone Encounter - Vicki Stark RN - 02/23/2024 12:19 PM EDT Patient calls to report that she is scheduled with urology but is not able to get in for two weeks. Patient reports that she is urinating atleast 6 x a day and filling the toilet bowel with bright red blood and having to change the pad that is saturated with bright red blood every time for the pasttwo days. Patient reports that she is starting to feel very weak. Based on triage protocol recommended patient go to ER now and she is agreeable. Patient is going togo to [facility] ER now. Vicki Stark RN * Telephone Encounter - Veronique Tobin - 02/22/2024 8:48 AM EDT 1st attempt LVM to schedule consult to Urology * Telephone Encounter - Sheri Hutchins MD - 02/20/2024 1:08 PM EDT Filed order Help schedule appointment * Telephone Encounter - Ivana Navarro MA - 02/20/2024 12:14 PM EDT Patient notified. Agreeable to see [facility] advise local at [facility]. Please place referral. Patient aware she will be contacted Thursday. Ivana Navarro MA * Telephone Encounter - Sheri Hutchins MD - 02/20/2024 12:03 PM EDT No significant growth on Urine Culture 02/15 Urine dip with 3+ blood and microscopic >25/HPF on 02/15 Since hematuria is persistent, should be seen by urology. See if has preference where should send referral for consult order. * Telephone Encounter - Vicki Stark RN - 02/20/2024 10:24 AM EDT Patient calls to ask if the bleeding she is having in her urine should still be occurring. Patient met with Jack on 02/16/2024 for Acute DVT and gross hematuria. Patient reports that she continues to have bleeding in the urine. She believes it is in the toilet bowel but the water is blue so it is hard to tell. She also reports that she is incontinent and eachtime she changes her pad she has blood on it. She reports that it ranges from dark red, red, to sometimes looking green. The pad usually has blood that covers atleast a 50 cent size portion. Denies frequency beyond her normal, burning, fever, urgency, lower back pain beyond her normal, andstomach pain beyond what she has had since starting on the Eliquis. Patient currently on Eliquis 10 mg twice daily for 7 days. After today should be 5 mg twice daily. Please review and advise, iVcki Stark RN documented in this encounterBar[facility]10-[facility] Telephone encounter Note * Telephone Encounter - Joanna Shah RN - 02/23/2024 4:36 PM EDT Called and left a voicemail for the Patient to call back and ask for a nurse to receive the providers message. Joanna Shah RN [facility]10-15-20[facility] Telephone encounter Note* Telephone Encounter - Sheri Hutchins MD - 02/23/2024 3:47 PM EDT Agree with ER evaluation [facility]10-[facility] Telephone encounter Note* Telephone Encounter - Vicki Stark RN - 02/23/2024 12:19 PM EDT Patient calls to report that she is scheduled with urology but is not able to get in for two weeks. Patient reports that she is urinating atleast 6 x a day and filling the toilet bowel with bright red blood and having to change the pad that is saturated with bright red blood every time for the pasttwo days. Patient reports that she is starting to feel very weak. Based on triage protocol recommended patient go to ER now and she is agreeable. Patient is going togo to [facility] ER now. Vicki Stark RN [facility]10-14-2024 Telephone encounter Note* Telephone Encounter - Veronique Tobin - 02/22/2024 8:48 AM EDT 1st attempt LVM to schedule consult to Urology [facility]10-12-2024 Telephone encounter Note* Telephone Encounter - Sheri Hutchins MD - 02/20/2024 1:08 PM EDT Filed order Help schedule appointment [facility]10-12-2024 Telephone encounter Note* Telephone Encounter - Ivana Navarro MA - 02/20/2024 12:14 PM EDT Patient notified. Agreeable to see [facility] advise local at [facility]. Please place referral. Patient aware she will be contacted Thursday. Ivana Navarro MA [facility]10-12-2024 Telephone encounter Note* Telephone Encounter - Sheri Hutchins MD - 02/20/2024 12:03 PM EDT No significant growth on Urine Culture 02/15 Urine dip with 3+ blood and microscopic >25/HPF on 02/15 Since hematuria is persistent, should be seen by urology. See if has preference where should send referral for consult order. [facility]10-12-2024 Telephone encounter Note* Telephone Encounter - Vicki Stark RN - 02/20/2024 10:24 AM EDT Patient calls to ask if the bleeding she is having in her urine should still be occurring. Patient met with Jack on 02/16/2024 for Acute DVT and gross hematuria. Patient reports that she continues to have bleeding in the urine. She believes it is in the toilet bowel but the water is blue so it is hard to tell. She also reports that she is incontinent and eachtime she changes her pad she has blood on it. She reports that it ranges from dark red, red, to sometimes looking green. The pad usually has blood that covers atleast a 50 cent size portion. Denies frequency beyond her normal, burning, fever, urgency, lower back pain beyond her normal, andstomach pain beyond what she has had since starting on the Eliquis. Patient currently on Eliquis 10 mg twice daily for 7 days. After today should be 5 mg twice daily. Please review and advise, Vicki Stark RN [facility]10-09-2024 NoteDate of Procedure 02/17/2024 [place] Protocol Safety Checklist Sign In: A moment to CARE completed, Special equipment verified, Appropriate PPE verified, Patient name, date of , allergies and intended procedure verified. Provider Confirms: Correct side/site marked visible, Consent documented and matches the intended procedure, Intended patient and procedure match the source document. No relevant labs, photos, and/or imaging studies to review. No medications required for procedure. No fire risk. No implants. Punctal Plug #1 John Sevier. 0.3. Left Upper. Ref # [id number]. Lot # [id number]. Punctal Plug #2 John Sevier. 0.3. Left Lower. Ref # [id number]. Lot # [id number]. Sign Out Sign out discussion completed, All instruments, equipment, and/or possible retained foreign bodies accounted for, Post-procedure follow up management communicated. No specimens.[facility]10-09-2024 NoteHNO ID: [id number] Author: MCKENZIE ZABALA MD Service: ? Author Type: Physician Type: Progress Notes Filed: 02/17/2024 16:22 Note Text: Assessment and Plan 1. Dry eye syndrome of both eyes -main complaint is burning and itching and blurry vision -started ~6 months after cataract surgery left eye when vision dropped abruptly and pain began -elevated esr and crp (history of multiple DVTs) -frequent eye rubber! Especially in the morning when wakes up Dry Eye Treatment: Ointment Effective?: No Comments: Erythromycin Cyclosporine Effective?: Partially 2. Pseudophakia both eyes -sable both eyes Plan: -dry eye left eye >> right eye in setting of more eyelid laxity, also possibly element of rosacea. Will also check Anti-nuclear antibody and anti-SSA/SSB -continue artificial tears -continue restasis twice a day both eyes -no rubbing eyes -3-month dissolvable collagen plug size 0.3 placed upper and lower puncta left eye 02/17/24 -may need oculoplastics eval in the future? -me in 3 months -back to Dr. Webber once better I have confirmed and edited as necessary the relevant ophthalmic history, ROS, and the neuro exam findings as obtained by others. I have seen and examined Chaparrita Barajas. I have discussed the case and the management of this patient's care with the Resident/Fellow, if applicable. I also have reviewed and agree with the assessment and plan as stated above and agree with all of its relevant components. Mckenzie Zabala MD February 17, 2024 3:59 [facility]10-09-2024 History of Present illness Narrative* Mckenzie Zabala MD - 02/17/2024 3:59 PM EDT Assessment and Plan 1. Dry eye syndrome of both eyes -main complaint is burning and itching and blurry vision -started ~6 months after cataract surgery left eye when vision dropped abruptly and pain began -elevated esr and crp (history of multiple DVTs) -frequent eye rubber! Especially in the morning when wakes up Dry Eye Treatment: Ointment Effective?: No Comments: Erythromycin Cyclosporine Effective?: Partially 2. Pseudophakia both eyes -sable both eyes Plan: -dry eye left eye >> right eye in setting of more eyelid laxity, also possibly element of rosacea. Will also check Anti-nuclear antibody and anti-SSA/SSB -continue artificial tears -continue restasis twice a day both eyes -no rubbing eyes -3-month dissolvable collagen plug size 0.3 placed upper and lower puncta left eye 02/17/24 -may need oculoplastics eval in the future? -me in 3 months -back to Dr. Webber once better I have confirmed and edited as necessary the relevant ophthalmic history, ROS, and the neuro exam findings as obtained by others. I have seen and examined Chaparrita Barajas. I have discussed the case and the management of this patient's care with the Resident/Fellow, if applicable. I also have reviewed and agree with the assessment and plan as stated above and agree withall of its relevant components. Mckenzie Zabala MD February 17, 2024 3:59 PM documented in this encounterBar[facility]10-[facility]-2024 NoteHNO ID: [id number] Author: JACK LAWLER APRN.JAYDON Service: ? Author Type: Nurse Practitioner Type: Progress Notes Filed: 02/16/2024 08:51 Note Text: SUBJECTIVE Chaparrita Barajas is a 68 year old female here today for an ER follow up. Chief Complaint Patient presents with: ER F/U: [facility] ER for DVT in left leg HPI Chaparrita Barajas is a 68 year old female. She is an established patient of Sheri Hutchins MD. Here today for ER follow up. Seen in the ER at [facility] 02/12 and 02/13. Diagnosed with DVT in the left leg. Started on Eliquis. Small amount of blood in the urine, just getting over a UTI. 6th DVT. Was never on terminal press operator anticoagulation. ER suggested hypercoagulable work up. Still with some swelling in the left leg. No shortness of breath, no chest pain or chest tightness. Her medications were reviewed today and her list is now up to date. Medications Current Outpatient Medications Medication Sig ondansetron (ZOFRAN) 8 mg tablet Take 1 tablet by mouth every 8 hours as needed for nausea/vomiting. venlafaxine ER (EFFEXOR XR) 75 mg 24 hr capsule Take 1 capsule by mouth two times a day. lisinopril (ZESTRIL) 20 mg tablet Take 1 tablet by mouth once daily. carvedilol (COREG) 12.5 mg tablet Take 1 tablet by mouth two times a day. metFORMIN ER (GLUCOPHAGE XR) 500 mg 24 hr tablet Take 2 tablets by mouth daily with breakfast. rosuvastatin (CRESTOR) 5 mg tablet Take 1 tablet by mouth once daily. pantoprazole DR (PROTONIX) 40 mg tablet Take 1 tablet by mouth once daily. Cranberry 500 mg cap Take 1 capsule by mouth twice daily. oxyCODONE ER (OXYCONTIN) 10 mg 12 hr tablet Take 10 mg by mouth every 12 hours. morphine IR 15 mg tablet Take 15 mg by mouth twice daily. L. acidophilus-L. rhamnosus (PROBIOTIC) 15 billion cell cap Take 1 scoop by mouth once daily. therapeutic multivitamin (THERA VITAMIN) tablet Take 1 tablet by mouth once daily. Vit M-Gusmrr-Crjmdr-Grape 87-174-46-75-20 mg cap Take by mouth. CALCIUM CARBONATE/VITAMIN D2 (CALCIUM + VITAMIN D ORAL) Take by mouth once daily. Gummies, calcium 1000 mg and vit d 1600 IU aspirin(ADULT ASPIRIN EC LOW STRENGTH 81 MG TAB, DELAYED RELEASE) Take by mouth twice daily. ELIQUIS DVT-PE TREAT 30D START 5 mg (74 tabs) Take 2 tablets by mouth two times a day. apixaban (ELIQUIS) 5 mg tab(s) Take 1 tablet by mouth two times a day. To start after the starter pack blood sugar diagnostic (BLOOD GLUCOSE TEST) test strip Test blood sugar(s) one time daily. Dx: Type 2 DM - Controlled E11.9 Insulin: No albuterol HFA (PROAIR HFA) 90 mcg/actuation inhaler Inhale 2 Puffs as instructed every 6 hours as needed. benzonatate (TESSALON PERLES) 100 mg capsule Take 2 capsules by mouth three times a day as needed. No current facility-administered medications for this visit. ALLERGIES Allergen Reactions Adhesive Rash Bandaids- swelling, rash Amoxicillin GI Upset Ativan [Lorazepam] Intolerance Codeine Cytotec [Misoprosto* Diarrhea Flovent [Fluticason* Severe headaches. Lodine [Etodolac] Intolerance Lubiprostone GI Upset Macrobid [Nitrofura* nausea. ok with plain Macrodantin Prevacid [Lansopraz* Topamax [Topiramate] GI Upset Eyes blurry, could not eat for 2 weeks ,gi symptoms ACTIVE PROBLEM LIST Recurrent Major Depressive Disorder, in Partial Remission ([facility]) - 01/05/2022 History of SD (Myocardial Infarction) - 09/07/2020 Ventricular Tachycardia By Electrocardiogram ([facility]) - 09/07/2020 Class 1 Obesity Due to Excess Calories With Body Mass Index (Bmi) of 34.0 to 34.9 in Adult - 01/03/2018 Reactive Depression Controlled Type 2 Diabetes Mellitus Without Complication, Without Long-Term Current Use of Insulin ([facility]) - 08/08/2016 Airway Obstruction - 08/29/2014 Gout Displacement of Lumbar Intervertebral Disc Without Myelopathy - 03/15/2012 Trigger Finger (Acquired) - 03/15/2012 Mixed Hyperlipidemia Other Disorders of Bone and Cartilage(733.99) - 03/15/2008 Thoracic Or Lumbosacral Neuritis Or Radiculitis, Unspecified Disorders of Bursae and Tendons in Shoulder Region, Unspecified - 03/23/2006 Knee Joint Replacement By Other Means - 12/08/2005 Other Chronic Cystitis - 05/22/2005 Other Specified Disorders of Urethra - 05/22/2005 Disorder of Kidney and Ureter Generalized Osteoarthrosis, Unspecified Site Myalgia and Myositis, Unspecified Esophageal Reflux Nonspecific Abnormal Unspecified Cardiovascular Function Study - 01/08/2005 Comment: December 03 on Myoview, area suspicious for a small focal anterior perfusion abnormality Essential Hypertension - 01/08/2005 Social History Tobacco Use Smoking status: Former Current packs/day: 0.00 Average packs/day: 0.5 packs/day for 15.0 years (7.5 ttl pk-yrs) Types: Cigarettes Start date: 1978 Quit date: 1993 Years since quittin.7 Smokeless tobacco: Never Vaping Use Vaping status: Never Used Substance Use Topics Alcohol use: Yes Comment: 1-2 per yr (more content not included)...[facility]10-08-2024 History of Present illness Narrative* Jack Lawler APRN.REPAIR TECHNICIAN - 02/16/2024 8:04 AM EDT SUBJECTIVE Chaparrita Barajas is a 68 year old female here today for an ER follow up. Chief Complaint Patient presents with: ER F/U: [facility] ER for DVT in left leg HPI Chaparrita Barajas is a 68 year old female. She is an established patient of Sheri Hutchins MD. Here today for ER follow up. Seen in the ER at [facility] 02/12 and 02/13. Diagnosed with DVT in the left leg.Started on Eliquis. Small amount of blood in the urine, just getting over a UTI. 6th DVT. Was neveron terminal press operator anticoagulation. ER suggested hypercoagulable work up. Still with some swelling in theleft leg. No shortness of breath, no chest pain or chest tightness. Her medications were reviewed today and her list is now up to date. Medications Current Outpatient Medications Medication Sig ondansetron (ZOFRAN) 8 mg tablet Take 1 tablet by mouth every 8 hours as needed for nausea/vomiting. venlafaxine ER (EFFEXOR XR) 75 mg 24 hr capsule Take 1 capsule by mouth two times a day. lisinopril (ZESTRIL) 20 mg tablet Take 1 tablet by mouth once daily. carvedilol (COREG) 12.5 mg tablet Take 1 tablet by mouth two times a day. metFORMIN ER (GLUCOPHAGE XR) 500 mg 24 hr tablet Take 2 tablets by mouth daily with breakfast. rosuvastatin (CRESTOR) 5 mg tablet Take 1 tablet by mouth once daily. pantoprazole DR (PROTONIX) 40 mg tablet Take 1 tablet by mouth once daily. Cranberry 500 mg cap Take 1 capsule by mouth twice daily. oxyCODONE ER (OXYCONTIN) 10 mg 12 hr tablet Take 10 mg by mouth every 12 hours. morphine IR 15 mg tablet Take 15 mg by mouth twice daily. L. acidophilus-L. rhamnosus (PROBIOTIC) 15 billion cell cap Take 1 scoop by mouth once daily. therapeutic multivitamin (THERA VITAMIN) tablet Take 1 tablet by mouth once daily. Vit D-Njeceb-Umvxna-Grape 42-799-48-75-20 mg cap Take by mouth. CALCIUM CARBONATE/VITAMIN D2 (CALCIUM + VITAMIN D ORAL) Take by mouth once daily. Gummies, calcium 1000 mg and vit d 1600 IU aspirin(ADULT ASPIRIN EC LOW STRENGTH 81 MG TAB, DELAYED RELEASE) Take by mouth twice daily. ELIQUIS DVT-PE TREAT 30D START 5 mg (74 tabs) Take 2 tablets by mouth two times a day. apixaban (ELIQUIS) 5 mg tab(s) Take 1 tablet by mouth two times a day. To start after the starter pack blood sugar diagnostic (BLOOD GLUCOSE TEST) test strip Test blood sugar(s) one time daily. Dx: Type2 DM - Controlled E11.9 Insulin: No albuterol HFA (PROAIR HFA) 90 mcg/actuation inhaler Inhale 2 Puffs as instructed every 6 hours as needed. benzonatate (TESSALON PERLES) 100 mg capsule Take 2 capsules by mouth three times a day as needed. No current facility-administered medications for this visit. ALLERGIES Allergen Reactions Adhesive Rash Bandaids- swelling, rash Amoxicillin GI Upset Ativan [Lorazepam] Intolerance Codeine Cytotec [Misoprosto* Diarrhea Flovent [Fluticason* Severe headaches. Lodine [Etodolac] Intolerance Lubiprostone GI Upset Macrobid [Nitrofura* nausea. ok with plain Macrodantin Prevacid [Lansopraz* Topamax [Topiramate] GI Upset Eyes blurry, could not eat for 2 weeks ,gi symptoms ACTIVE PROBLEM LIST Recurrent Major Depressive Disorder, in Partial Remission ([facility]) - 01/05/2022 History of SD (Myocardial Infarction) - 09/07/2020 Ventricular Tachycardia By Electrocardiogram ([facility]) - 09/07/2020 Class 1 Obesity Due to Excess Calories With Body Mass Index (Bmi) of 34.0 to 34.9 in Adult - 01/03/2018 Reactive Depression Controlled Type 2 Diabetes Mellitus Without Complication, Without Long-Term Current Use of Insulin ([facility]) - 08/08/2016 Airway Obstruction - 08/29/2014 Gout Displacement of Lumbar Intervertebral Disc Without Myelopathy - 03/15/2012 Trigger Finger (Acquired) - 03/15/2012 Mixed Hyperlipidemia Other Disorders of Bone and Cartilage(733.99) - 03/15/2008 Thoracic Or Lumbosacral Neuritis Or Radiculitis, Unspecified Disorders of Bursae and Tendons in Shoulder Region, Unspecified - 03/23/2006 Knee Joint Replacement By Other Means - 12/08/2005 Other Chronic Cystitis - 05/22/2005 Other Specified Disorders of Urethra - 05/22/2005 Disorder of Kidney and Ureter Generalized Osteoarthrosis, Unspecified Site Myalgia and Myositis, Unspecified Esophageal Reflux Nonspecific Abnormal Unspecified Cardiovascular Function Study - 01/08/2005 Comment: December 03 on Myoview, area suspicious for a small focal anterior perfusion abnormality Essential Hypertension - 01/08/2005 Social History Tobacco Use Smoking status: Former Current packs/day: 0.00 Average packs/day: 0.5 packs/day for 15.0 years (7.5 ttl pk-yrs) Types: Cigarettes Start date: 1978 Quit date: 1993 Years since quittin.7 Smokeless tobacco: Never Vaping Use Vaping status: Never Used Substance Use Topics Alcohol use: Yes Comment: 1-2 per yr Drug use: No Review of Systems Constitutional: Negative. Respiratory: Negative. Cardiovascular: Positive for leg swelling. Negative for chest pain and palpitations. OBJECTIVE BP 138/68 Pulse 73 Wt 193 lb 12.6 oz (87.9kg) SpO2 94% Physical Exam Vitals and nursing note reviewed. Constitutional: General: She is awake. She is not in acute distress. Appearance: Normal appearance. She is well-developed and well-groomed. She is not ill-appearing, toxic-appearing or diaphoretic. HENT: Head: Normocephalic. Right Ear: External ear normal. Left Ear: External ear normal. Nose: Nose normal. Eyes: General: Vision grossly intact. Conjunctiva/sclera: Conjunctivae normal. Pupils: Pupils are equal, round, and reactive to light. Neck: Vascular: No JVD. Trachea: Trachea normal. Cardiovascular: Rate and Rhythm: Normal rate and regular rhythm. Pulses: Normal pulses. Heart sounds: Normal heart sounds. No murmur heard. Pulmonary: Effort: Pulmonary effort is normal. No accessory muscle usage, prolonged expiration or respiratory distress. Breath sounds: Normal breath sounds. Musculoskeletal: Cervical back: Neck supple. Left lower leg: Edema present. Skin: General: Skin is warm and dry. Capillary Refill: Capillary refill takes less than 2 seconds. Neurological: General: No focal deficit present. Mental Status: She is alert and oriented to person, place, and time. Mental status is at baseline. Psychiatric: Attention and Perception: Attention and perception normal. Mood and Affect: Mood and affect normal. Speech: Speech normal. Behavior: Behavior normal. Behavior is cooperative. Thought Content: Thought content normal. Cognition and Memory: Cognition and memory normal. Judgment: Judgment normal. ASSESSMENT/PLAN: 1. Acute deep vein thrombosis (DVT) of other specified vein of left lower extremity (HCC) - ICD9: 453.40, ICD10: I82.492 (primary diagnosis) Continue on the Eliquis, is on this so she is familiar with the medication. Check labs today. She is aware she likely needs to be on blood thinners halfway at this point. - APIXABAN 5 MG TABLET - FACTOR V LEIDEN/PCR - PROTEIN S IMMUNO - PROTEIN C FUNCT - ANTITHROMBIN ACTIVITY 2. 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 Gross hematuria - ICD9: 599.71, ICD10: R31.0 Repeat urine today to see if UTI has resolved or still present. - URINALYSIS, WITH MICROSCOPIC - COMPLETE BLOOD COUNT AND DIFFERENTIAL - COMPREHENSIVE METABOLIC PANEL - URINE CULTURE 4. Clotting disorder (HCC) - ICD9: 286.9, ICD10: D68.9 - FACTOR V LEIDEN/PCR - PROTEIN S IMMUNO - PROTEIN C FUNCT - ANTITHROMBIN ACTIVITY 5. Encounter for therapeutic drug monitoring - ICD9: V58.83, ICD10: Z51.81 - ANTITHROMBIN ACTIVITY Portions of this note have been entered by ancillary staff. I have reviewed and when necessary edited, so that they are an adequate record of my encounter with this patient Please note that parts of this document were created using voice recognition software and therefore may contain grammatical errors. Patient verbalizes understanding of instructions from today's visit and in agreement with treatmentplan. Questions answered. Agrees to call the office if questions, concerns of issues with acute symptoms not improving or if they worsen. See diagnoses and orders for additional plan(s). Allergies and medications were reviewed, list was updated, and refills given if needed. Past medical, surgical, social, and family history reviewed and updated as appropriate. Encouraged proper diet & exercise as well as compliance with taking medications. Age- appropriate health preventative measures were discussed. Return if symptoms worsen or fail to improve, for Keep next scheduled appointment.. Jack Lawler APRN-JAYDON documented in this encounterBar[facility]09-29-[facility]24 Telephone encounter Note * Telephone Encounter - Gabi Salvador RN - 02/07/2024 5:09 PM EDT Reason for Call: dizzy and low blood pressure, left scapular pain. Outcome: Call 911 now recommendation, care advice given, Patient verbalized understanding. Caller states that she will get dressed and go to nearest emergency department now. Reason for Disposition [1] Systolic BP < 90 AND [2] dizzy, lightheaded, or weak Answer Assessment - Initial Assessment Questions 1. DESCRIPTION: see below 2. LIGHTHEADED: confirms when standing up after sitting for a while 3. VERTIGO: denies 4. SEVERITY: ache 1/10 Takes 10mg morphine sulfate (pain management) 5. ONSET: a few days ago 6. AGGRAVATING FACTORS: left shoulder blade pain since yesterday 7. HEART RATE: at time of call 84/65 65 HR 8. CAUSE: taking lisinopril and carvedolol 130 blood sugar 1711 9. RECURRENT SYMPTOM: no 10. OTHER SYMPTOMS: recently had the flu with vomiting and diarrhea (2 weeks ago) Protocols used: Dizziness - Ffqttevkzwrdjoq-NHIUJ-NG, Blood Pressure - Czh-CAXTA-MA [facility]09-29-2024 Miscellaneous Notes* Telephone Encounter - Gabi Salvador RN - 02/07/2024 5:09 PM EDT Reason for Call: dizzy and low blood pressure, left scapular pain. Outcome: Call 911 now recommendation, care advice given, Patient verbalized understanding. Caller states that she will get dressed and go to nearest emergency department now. Reason for Disposition [1] Systolic BP < 90 AND [2] dizzy, lightheaded, or weak Answer Assessment - Initial Assessment Questions 1. DESCRIPTION: see below 2. LIGHTHEADED: confirms when standing up after sitting for a while 3. VERTIGO: denies 4. SEVERITY: ache 10 Takes 10mg morphine sulfate (pain management) 5. ONSET: a few days ago 6. AGGRAVATING FACTORS: left shoulder blade pain since yesterday 7. HEART RATE: at time of call 84/65 65 HR 8. CAUSE: taking lisinopril and carvedolol 130 blood sugar 1711 9. RECURRENT SYMPTOM: no 10. OTHER SYMPTOMS: recently had the flu with vomiting and diarrhea (2 weeks ago) Protocols used: Dizziness - Dksrvocfordetka-KHAEP-ZH, Blood Pressure - Ysf-ULPWL-EC documented in this encounterBarberton [facility] Hospital09-17-2024 Telephone encounter Note * Telephone Encounter - Chaparrita Saravia LPN - 01/26/2024 10:34 AM EDT Patient notified of providers message and verbalized understanding. [facility]09-17-2024 Miscellaneous Notes* Telephone Encounter - Chaparrita Saravia LPN - 01/26/2024 10:34 AM EDT Patient notified of providers message and verbalized understanding. * Telephone Encounter - Sheri Hutchins MD - 01/25/2024 7:11 PM EDT The following approved medication requests have been transmitted electronically. Requested Prescriptions Signed Prescriptions Disp Refills venlafaxine ER (EFFEXOR XR) 75 mg 24 hr capsule 60 capsule 11 Sig: Take 1 capsule by mouth two times a day. Authorizing Provider: SHERI HUTCHINS ondansetron (ZOFRAN) 8 mg tablet 5 tablet 0 Sig: Take 1 tablet by mouth every 8 hours as needed for nausea/vomiting. 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 Follow up as needed * Telephone Encounter - Chaparrita Saravia LPN - 01/25/2024 10:40 AM EDT Patient notified of providers message and verbalized understanding. Patient has been and prefers taking medication venlafaxine ER (EFFEXOR XR) 75 mg. However, she states she has the flu right now andhasn't taken any medications for 3 days. Patient states she has nausea/vomiting for the past few days and has not been able to hold anything down. Please advise * Telephone Encounter - Sheri Hutchins MD - 01/23/2024 1:49 PM EDT Sent RX with note to pharmacy that will let patient know she may take both pills once daily so if tolerates that, can send for Effexor XR 150mg once daily. Let me patient know she can try taking 2 pills once daily but if prefers to stay on 1 twice daily, that is fine too. The following approved medication requests have been transmitted electronically. Requested Prescriptions Signed Prescriptions Disp Refills venlafaxine ER (EFFEXOR XR) 75 mg 24 hr capsule 60 capsule 11 Sig: Take 1 capsule by mouth two times a day. Authorizing Provider: SHERI HUTCHINS MD * Telephone Encounter - Silvia Powell LPN - 01/23/2024 9:55 AM EDT Called pt to review. She reports she does notice a difference and she feels better with the venlafaxine XR. 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 Do you want to send a new prescription? * Telephone Encounter - Sheri Hutchins MD - 01/21/2024 3:23 PM EDT Check with patient how she is doing now and whether prefers XR and let pharmacy know to dispense what patient wants * Telephone Encounter - Ida Cordon RN - 01/19/2024 9:22 AM EDT This nurse contacted [facility]. Pharmacist Laurita states patient was supplied the XR capsules for November, December and January in error. Pt was to get non-XR tablets. Please advise pharmacy if they should continue to distribute XR capsules (need new Rx then) or distribute the non-XR tablets? Thank you. * Telephone Encounter - Sheri Hutchins MD - 01/19/2024 9:15 AM EDT Our records show she has been prescribed the nonXR since 2005. Have they been dispensing XR version all these years? * Telephone Encounter - Ida Cordon RN - 01/18/2024 1:56 PM EDT [facility] calling regarding patient's script for venlafaxine received on 11/19/23, ordered byDr. Hutchins. Pharmacist states patient has been getting the XR in the past, and asking if provider wishes to change this script to the XR? Please advise. Thank you. [facility] Telephone encounter Note * Telephone Encounter - Sheri Hutchins MD - 01/25/2024 7:11 PM EDT The following approved medication requests have been transmitted electronically. Requested Prescriptions Signed Prescriptions Disp Refills venlafaxine ER (EFFEXOR XR) 75 mg 24 hr capsule 60 capsule 11 Sig: Take 1 capsule by mouth two times a day. Authorizing Provider: SHERI HUTCHINS ondansetron (ZOFRAN) 8 mg tablet 5 tablet 0 Sig: Take 1 tablet by mouth every 8 hours as needed for nausea/vomiting. 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 Follow up as needed [facility]09-16-2024 Telephone encounter Note* Telephone Encounter - Chaparrita Saravia LPN - 01/25/2024 10:40 AM EDT Patient notified of providers message and verbalized understanding. Patient has been and prefers taking medication venlafaxine ER (EFFEXOR XR) 75 mg. However, she states she has the flu right now andhasn't taken any medications for 3 days. Patient states she has nausea/vomiting for the past few days and has not been able to hold anything down. Please advise [facility]09-14-2024 Telephone encounter Note* Telephone Encounter - Sheri Hutchins MD - 01/23/2024 1:49 PM EDT Sent RX with note to pharmacy that will let patient know she may take both pills once daily so if tolerates that, can send for Effexor XR 150mg once daily. Let me patient know she can try taking 2 pills once daily but if prefers to stay on 1 twice daily, that is fine too. The following approved medication requests have been transmitted electronically. Requested Prescriptions Signed Prescriptions Disp Refills venlafaxine ER (EFFEXOR XR) 75 mg 24 hr capsule 60 capsule 11 Sig: Take 1 capsule by mouth two times a day. Authorizing Provider: SHERI HUTCHINS MD [facility]09-14-[facility] Telephone encounter Note* Telephone Encounter - Silvia Powell LPN - 01/23/2024 9:55 AM EDT Called pt to review. She reports she does notice a difference and she feels better with the venlafaxine XR. 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 Do you want to send a new prescription? [facility]09-12-2024 Telephone encounter Note* Telephone Encounter - Sheri Hutchins MD - 01/21/2024 3:23 PM EDT Check with patient how she is doing now and whether prefers XR and let pharmacy know to dispense what patient wants [facility]09-10-2024 Telephone encounter Note* Telephone Encounter - Ida Cordon RN - 01/19/2024 9:22 AM EDT This nurse contacted [facility]. Pharmacist Laurita states patient was supplied the XR capsules for November, December and January in error. Pt was to get non-XR tablets. Please advise pharmacy if they should continue to distribute XR capsules (need new Rx then) or distribute the non-XR tablets? Thank you. [facility]09-10-2024 Telephone encounter Note* Telephone Encounter - Sheri Hutchins MD - 01/19/2024 9:15 AM EDT Our records show she has been prescribed the nonXR since 2005. Have they been dispensing XR version all these years? [facility]09-09-2024 Telephone encounter Note* Telephone Encounter - Ida Cordon RN - 01/18/2024 1:56 PM EDT [facility] calling regarding patient's script for venlafaxine received on 11/19/23, ordered byDr. Hutchins. Pharmacist states patient has been getting the XR in the past, and asking if provider wishes to change this script to the XR? Please advise. Thank you. [facility]08-16-2024 NoteHNO ID: [id number] Author: JEANNETTE MULLINS RPFT Service: ? Author Type: Respiratory Therapist Type: Procedures Filed: 12/25/2023 13:08 Note Text: RESPIRATORY THERAPY ORAL EXHALED NITRIC OXIDE SERVICE DATE: 12/25/2023 SERVICE TIME: 1:08 PM Oral Exhaled Nitric Oxide measurement: 19.0 (ppb) Normal: Adult <25 ppb, pediatric (<12 years) <20 ppb High Normal / Increased: Adult 25-50 ppb, pediatric (<12 years) 20-35 ppb Moderately raised exhaled Nitric Oxide may indicate underlying inflammation, but note that: Cold and influenza can raise exhaled Nitric Oxide and some patients have higher baseline exhaled Nitric Oxide levels than others. High: Adult >50 ppb, pediatric (<12 years) >35 ppb Indicative of ongoing eosinophilic inflammation. Symptomatic patient likely to respond to steroids. Possible causes (if already on steroids): Poor compliance, recent allergen exposure, steroid dose inadequate, and steroid resistance. Note that not all patients with high exhaled nitric oxide levels display symptoms. Oral Exhaled Nitric Oxide measurement (Previous Encounters) Test Date Oral Exhaled Nitric Oxide (ppb) 12/25/2023 19.0 NAME: SCOTTY Latham PATIENT NAME: Chaparrita Quickeaston DATE: December 25, 2023 TIME: 1:08 [facility]08-16-2024 Procedure note* Jeannette Mullins RPFT - 12/25/2023 1:08 PM EDTAssociated Order(s): NITRIC OXIDE, EXHALED RESPIRATORY THERAPY ORAL EXHALED NITRIC OXIDE SERVICE DATE: 12/25/2023 SERVICE TIME: 1:08 PM Oral Exhaled Nitric Oxide measurement: 19.0 (ppb) Normal: Adult <25 ppb, pediatric (<12 years) <20 ppb High Normal / Increased: Adult 25-50 ppb, pediatric (<12 years) 20-35 ppb Moderately raised exhaled Nitric Oxide may indicate underlying inflammation, but note that: Cold and influenza can raise exhaled Nitric Oxide and some patients have higher baseline exhaled Nitric Oxide levels than others. High: Adult >50 ppb, pediatric (<12 years) >35 ppb Indicative of ongoing eosinophilic inflammation. Symptomatic patient likely to respond to steroids. Possible causes (if already on steroids): Poor compliance, recent allergen exposure, steroid dose inadequate, and steroid resistance. Note that not all patients with high exhaled nitric oxide levels display symptoms. Oral Exhaled Nitric Oxide measurement (Previous Encounters) Test Date Oral Exhaled Nitric Oxide (ppb) 12/25/2023 19.0 NAME: SCOTTY Latham PATIENT NAME: Chaparrita Quileskerrieaston DATE: December 25, 2023 TIME: 1:08 PM [facility]08-16-[facility] Procedure note* Jeannette Mullins RPFT - 12/25/2023 1:08 PM EDTAssociated Order(s): NITRIC OXIDE, EXHALED RESPIRATORY THERAPY ORAL EXHALED NITRIC OXIDE SERVICE DATE: 12/25/2023 SERVICE TIME: 1:08 PM Oral Exhaled Nitric Oxide measurement: 19.0 (ppb) Normal: Adult <25 ppb, pediatric (<12 years) <20 ppb High Normal / Increased: Adult 25-50 ppb, pediatric (<12 years) 20-35 ppb Moderately raised exhaled Nitric Oxide may indicate underlying inflammation, but note that: Cold and influenza can raise exhaled Nitric Oxide and some patients have higher baseline exhaled Nitric Oxide levels than others. High: Adult >50 ppb, pediatric (<12 years) >35 ppb Indicative of ongoing eosinophilic inflammation. Symptomatic patient likely to respond to steroids. Possible causes (if already on steroids): Poor compliance, recent allergen exposure, steroid dose inadequate, and steroid resistance. Note that not all patients with high exhaled nitric oxide levels display symptoms. Oral Exhaled Nitric Oxide measurement (Previous Encounters) Test Date Oral Exhaled Nitric Oxide (ppb) 12/25/2023 19.0 NAME: SCOTTY Latham PATIENT NAME: Chaparrita Barajas DATE: December 25, 2023 TIME: 1:08 PM documented in this encounterBarber[facility]08-16-2024 NoteHNO ID: [id number] Author: JEANNETTE MULLINS RPFT Service: ? Author Type: Respiratory Therapist Type: Progress Notes Filed: 12/25/2023 13:08 Note Text: PULM FUNCTION: Provider: Sheri Hutchins MD Assisting Tech: Jeannette Mullins RPFT Spirometry w/BD: 1 Exhaled Nitric Oxide: 1CF[facility] History of Present illness Narrative* Jeannette Mullins RPFT - 12/25/2023 1:06 PM EDT PULM FUNCTION: Provider: Sheri Hutchins MD Assisting Tech: Jeannette Mullins RPFT Spirometry w/BD: 1 Exhaled Nitric Oxide: 1 documented in this encounterBarberton [facility]07-11-2024 History of Present illness Narrative* Jose Roberto Avalos RT(R) - 11/19/2023 3:50 PM EDT Radiology Service Progress Note PATIENT NAME: Chaparrita Barajas DATE OF SERVICE: November 19, 2023 TIME: 3:42 PM PATIENT IDENTITY VERIFICATION COMPLETED USING TWO (2) IDENTIFIERS: Name and Date of confirmedby patient verbally. FALL SCREENING: Has the patient had 2 falls in the last year or 1 fall with injury or currently using an Ambulatory Assistive Device (Walker, Cane, Wheelchair, Crutches, etc.)? No PATIENT GENDER DATA: Female. status: : No status: NO. PATIENT RELEVANT IMPLANT DATA REVIEWED: Yes PATIENT PRESENTS WITH AN IMPLANTABLE OR ATTACHED ROLLER COASTER DESIGNER: No RADIOLOGY DEPARTMENT: General X-ray: Exam(s) Completed: Chest X-Ray PERIPHERAL IV DATA: Not applicable SIGNED BY: RT Radha(R) November 19, 2023 3:42 PM documented in this encounterBarberton [facility]07-11-2024 Miscellaneous Notes* Result Encounter Note - Marianna Finnegan APRN.CNS - 11/19/2023 3:50 PM EDT No acute findings on chest x-ray documented in this encounterBarberton [facility] Hospital07-11-2024 NoteHNO ID: [id number] Author: JOSE ROBERTO AVALOS RT(Olivia) Service: ? Author Type: Patent Counsel Type: Progress Notes Filed: 11/19/2023 15:51 Note Text: Radiology Service Progress Note PATIENT NAME: Chaparrita Barajas DATE OF SERVICE: November 19, 2023 TIME: 3:42 PM PATIENT IDENTITY VERIFICATION COMPLETED USING TWO (2) IDENTIFIERS: Name and Date of confirmed by patient verbally. FALL SCREENING: Has the patient had 2 falls in the last year or 1 fall with injury or currently using an Ambulatory Assistive Device (Walker, Cane, Wheelchair, Crutches, etc.)? No PATIENT GENDER DATA: Female. status: : No status: NO. PATIENT RELEVANT IMPLANT DATA REVIEWED: Yes PATIENT PRESENTS WITH AN IMPLANTABLE OR ATTACHED ROLLER COASTER DESIGNER: No RADIOLOGY DEPARTMENT: General X-ray: Exam(s) Completed: Chest X-Ray PERIPHERAL IV DATA: Not applicable SIGNED BY: RT Radha(R) November 19, 2023 3:42 PMCFisher[facility]07-11-2024 Progress note* Result Encounter Note - Marianna Finnegan APRN.CNS - 11/19/2023 3:50 PM EDT No acute findings on chest x-ray [facility]07-11-2024 History of Present illness Narrative* Sheri Hutchins MD - 11/19/2023 2:00 PM EDT This note was created using Keyprriter. Subjective Chaparrita Barajas is a 68 year old female. Patient presents with: Follow Up SUBJECTIVE: Chaparrita Barajas is a 68 year old year old lady here today for 4 month follow up appointment for review of medical conditions. Last seen October 2022. Appointments canceled after that (illness, conflict, etc). Due for labs. After standing, after laying down or sitting a while, when stands up, has urinary incontinence. Wears pad. No pain or burning till the past 2 weeks. Drinking water all the time. Started drinking waster since 9AM. Ongoing cough since had bronchitis. Hard to expectorate. Reviewed had clotting work up done. Rarely needs to take second Protonix. Trouble seeing clearly with left eye despite correction with glasses. Cannot read what right eye can read. Can see shapes and colors. Can read with left eye if pulls book closer. Has had cataracts taken care of. Had been fine before without glasses. Had fall in May and hit back of head and gotten knocked out of place. No double vision. PAST MEDICAL HISTORY Diagnosis Date Acute gastritis without mention of hemorrhage Chronic airway obstruction, not elsewhere classified 08/29/2014 Depressive disorder, not elsewhere classified Dysmetabolic syndrome X 01/08/2005 Glucose intolerance low HDL Elevated LDL Obesity Esophageal reflux Esophageal reflux Generalized osteoarthrosis, unspecified site Gout Migraine without aura Mixed hyperlipidemia Myalgia and myositis, unspecified Nausea Obesity, unspecified Partially edentulous maxilla has upper denture Phlebitis and thrombophlebitis of unspecified site 01/08/2005 Hx of DVT associated w/ OCP 10/1994, rt leg fracture 1976 Takotsubo cardiomyopathy Thoracic or lumbosacral neuritis or radiculitis, unspecified Unspecified disorder of kidney and ureter Unspecified essential hypertension 01/08/2005 VT (ventricular tachycardia) (HCC) 01/09/2016 Current Outpatient Medications Medication Sig venlafaxine (EFFEXOR) 75 mg tablet Take one(1) tablet twice daily as directed. lisinopril (ZESTRIL) 20 mg tablet Take 1 tablet by mouth once daily. carvedilol (COREG) 12.5 mg tablet Take 1 tablet by mouth two times a day. metFORMIN ER (GLUCOPHAGE XR) 500 mg 24 hr tablet Take 2 tablets by mouth daily with breakfast. cephALEXin (KEFLEX) 250 mg capsule Take 1 capsule by mouth once daily. rosuvastatin (CRESTOR) 5 mg tablet Take 1 tablet by mouth once daily. pantoprazole DR (PROTONIX) 40 mg tablet Take 1 tablet by mouth once daily. blood sugar diagnostic (BLOOD GLUCOSE TEST) test strip Test blood sugar(s) one time daily. Dx: Type2 DM - Controlled E11.9 Insulin: No albuterol HFA (PROAIR HFA) 90 mcg/actuation inhaler Inhale 2 Puffs as instructed every 6 hours as needed. benzonatate (TESSALON PERLES) 100 mg capsule Take 2 capsules by mouth three times a day as needed. ondansetron (ZOFRAN) 8 mg tablet Take 1 tablet by mouth every 8 hours as needed for nausea/vomiting. Cranberry 500 mg cap Take 1 capsule by mouth twice daily. oxyCODONE ER (OXYCONTIN) 10 mg 12 hr tablet Take 10 mg by mouth every 12 hours. morphine IR 15 mg tablet Take 15 mg by mouth twice daily. L. acidophilus-L. rhamnosus (PROBIOTIC) 15 billion cell cap Take 1 scoop by mouth once daily. therapeutic multivitamin (THERA VITAMIN) tablet Take 1 tablet by mouth once daily. Vit Q-Mjyrew-Cywmor-Grape 44-396-22-75-20 mg cap Take by mouth. CALCIUM CARBONATE/VITAMIN D2 (CALCIUM + VITAMIN D ORAL) Take by mouth once daily. Gummies, calcium 1000 mg and vit d 1600 IU aspirin(ADULT ASPIRIN EC LOW STRENGTH 81 MG TAB, DELAYED RELEASE) Take by mouth twice daily. No current facility-administered medications for this visit. Review of Systems Objective BP 128/70 (BP Site: Left Arm, BP Position: Sitting, BP Cuff Size: Large Adult) Pulse 77 Temp (!) 34.9 C (94.9 F) Resp 14 Ht 157.5 cm (5' 2) Wt 85.3 kg (188 lb) SpO2 97% BMI 34.39 kg/m Physical Exam Constitutional: Appearance: Normal appearance. HENT: Head: Normocephalic. Eyes: Conjunctiva/sclera: Conjunctivae normal. Cardiovascular: Rate and Rhythm: Normal rate and regular rhythm. Heart sounds: Normal heart sounds. Pulmonary: Effort: Pulmonary effort is normal. Breath sounds: Normal breath sounds. Musculoskeletal: Right lower leg: No edema. Left lower leg: No edema. Skin: General: Skin is warm and dry. Neurological: General: No focal deficit present. Mental Status: She is alert and oriented to person, place, and time. Psychiatric: Mood and Affect: Mood normal. Behavior: Behavior normal. Thought Content: Thought content normal. Judgment: Judgment normal. Last labs: Latest Ref Rng 02/18/2022 06/23/2022 10/21/2022 04/17/2023 WBC 3.70 - 11.00 k/uL 10.34 9.20 9.60 8.86 RBC 3.90 - 5.20 m/uL 4.86 4.63 4.52 4.87 Hemoglobin 11.5 - 15.5 g/dL 14.6 14.1 13.7 14.0 Hematocrit 36.0 - 46.0 % 44.3 42.4 43.4 45.1 MCV 80.0 - 100.0 fL 91.2 91.6 96.0 92.6 MCH 26.0 - 34.0 pg 30.0 30.5 30.3 28.7 MCHC 30.5 - 36.0 g/dL 33.0 33.3 31.6 31.0 RDW-CV 11.5 - 15.0 % 12.2 12.3 12.4 12.5 Platelet Count 150 - 400 k/uL 338 314 376 326 MPV 9.0 - 12.7 fL 9.3 9.7 11.0 10.0 Neut% % 71.2 Abs Neut (ANC) 1.45 - 7.50 k/uL 7.37 Lymph% % 19.0 Abs Lymph 1.00 - 4.00 k/uL 1.96 Traverse% % 6.6 Abs Traverse <0.87 k/uL 0.68 Eosin% % 2.3 Abs Eosin <0.46 k/uL 0.24 Baso% % 0.5 Abs Baso <0.11 k/uL 0.05 Immature Gran % % 0.4 IMMATURE GRANS (ABS) <0.10 k/uL 0.04 NRBC /100 WBC 0.0 Absolute nRBC <0.01 k/uL <0.01 <0.01 <0.01 <0.01 DTYPE Auto Protein, Total 6.3 - 8.0 g/dL 7.0 7.1 7.1 Albumin 3.9 - 4.9 g/dL 4.3 4.1 4.0 Calcium 8.5 - 10.2 mg/dL 9.5 9.9 9.6 Bilirubin, Total 0.2 - 1.3 mg/dL 0.4 0.4 0.4 Alkaline Phosphatase 34 - 123 U/L 90 82 103 AST 13 - 35 U/L 14 15 20 ALT 7 - 38 U/L 8 9 17 Glucose 74 - 99 mg/dL 125 (H) 147 (H) 109 (H) BUN 7 - 21 mg/dL 13 13 11 Creatinine 0.58 - 0.96 mg/dL 0.80 1.04 (H) 0.94 Sodium 136 - 144 mmol/L 138 142 140 Potassium 3.7 - 5.1 mmol/L 4.4 4.4 4.5 Chloride 97 - 105 mmol/L 99 100 102 CO2 22 - 30 mmol/L 29 27 27 Anion Gap 9 - 18 mmol/L 10 15 11 eGFR >=60 mL/min/1.73m 80 58 (L) 65 Cholesterol, Total <200 mg/dL 135 121 Triglyceride <150 mg/dL 136 104 HDL Cholesterol >39 mg/dL 48 47 Non HDL Cholesterol <130 mg/dL 87 74 Fasting Time hrs 12 15 VLDL Cholesterol <30 mg/dL 27 21 TC:HDL Ratio <5.10 2.81 2.57 LDL Cholesterol <100 mg/dL 60 53 LDL:HDL Ratio <2.54 1.25 1.13 Creatinine, Ur Random (UCRR) 20.0 - 300.0 mg/dL 173.3 Albumin, Urine Random mg/L <12.0 Albumin/Creat Ratio <30 mg/g <7 Hemoglobin A1C 4.3 - 5.6 % 6.4 (H) 6.0 (H) 6.1 (H) Estimated Average Glucose mg/dL 137 126 128 WSR 0 - 20 mm/hr 26 (H) CRP <0.9 mg/dL 1.3 (H) Uric Acid 2.5 - 6.6 mg/dL 5.7 Legend: (H) High (L) Low Hemoglobin A1C (%) Date Value 04/17/2023 6.1 10/21/2022 6.0 02/18/2022 6.4 11/05/2021 6.6 05/16/2021 6.4 08/27/2020 7.0 12/05/2019 6.9 05/18/2019 6.2 12/20/2018 6.3 Assessment and Plan Encounter Diagnosis ICD-10-CM 1. Controlled type 2 diabetes mellitus without complication, without long-term current use of insulin ([facility]) E11.9 MAGNESIUM HEMOGLOBIN A1C COMPREHENSIVE METABOLIC PANEL COMPLETE BLOOD COUNT LIPID PANEL BASIC LIPID PANEL, NONFASTING ALBUMIN/CREATININE RATIO, URINE Follow up lab due. Continue current management. Adjust meds as needed 2. Urinary incontinence without sensory awareness N39.42 UA DIP, URINE (POC) URINE CULTURE Ongoing issues as noted in HPI. Discussed management. Refer to urology as indicated 3. Mixed hyperlipidemia E78.2 LIPID PANEL BASIC LIPID PANEL, NONFASTING Follow up labs. Adjust management as needed 4. Essential hypertension I10 COMPREHENSIVE METABOLIC PANEL COMPLETE BLOOD COUNT Well controlled. Continues present management 5. Reactive depression F32.9 venlafaxine (EFFEXOR) 75 mg tablet Stable on current management. Continue same 6. Urinary urgency R39.15 UA DIP, URINE (POC) URINE CULTURE As noted above with issues with incontinence. See urology as indicated 7. Dysuria R30.0 UA DIP, URINE (POC) URINE CULTURE Will wait for results of urine culture and treat as indicated 8. Chronic cough R05.3 XR CHEST 2V FRONTAL/LAT SPIROMETRY - BASELINE AND POST DILATOR NITRIC OXIDE, EXHALED Check spirometry. Adjust meds as indicated 9. History of bronchitis Z87.09 SPIROMETRY - BASELINE AND POST DILATOR NITRIC OXIDE, EXHALED 10. Encounter for screening mammogram for breast cancer Z12.31 GENEVA SCREENING W SABAS 11. Encounter for long-term current use of medication Z79.899 MAGNESIUM HEMOGLOBIN A1C COMPREHENSIVE METABOLIC PANEL COMPLETE BLOOD COUNT LIPID PANEL BASIC LIPID PANEL, NONFASTING ALBUMIN/CREATININE RATIO, URINE Above issues addressed with patient. Patient involved in shared decision making for management of medical issues. History and medications reviewed. Epic updated as needed Refills and/or prescriptions taken care of and meds adjusted as indicated after reviewed history, exam and labs. Health Maintenance reviewed. Updated record and/or ordered tests as recorded. Encouraged on efforts at healthy diet and regular exercise and adequate sleep. Needs to keep working on diet and exercise with lifestyle changes for effective weight loss as wellas control of DM, and control of BP and lipids. I spent a total of 37 minutes on the date of the service which included [id number] patient care, completing clinical documentation, obtaining and/or reviewing separately obtained history, performing a medically appropriate examination, counseling and educating the patient/family/caregiver, ordering medications, tests, or procedures, independently interpreting results (not separately reported), and communicating results to the patient/family/caregiver. Sheri Hutchins MD documented in this encounterBarber[facility]07-[facility]-2024 NoteHNO ID: [id number] Author: SHERI HUTCHINS MD Service: ? Author Type: Physician Type: Progress Notes Filed: 12/27/2023 22:13 Note Text: This note was created using NoteWriter. Subjective Chaparrita Barajas is a 68 year old female. Patient presents with: Follow Up SUBJECTIVE: Chaparrita Barajas is a 68 year old year old lady here today for 4 month follow up appointment for review of medical conditions. Last seen October 2022. Appointments canceled after that (illness, conflict, etc). Due for labs. After standing, after laying down or sitting a while, when stands up, has urinary incontinence. Wears pad. No pain or burning till the past 2 weeks. Drinking water all the time. Started drinking waster since 9AM. Ongoing cough since had bronchitis. Hard to expectorate. Reviewed had clotting work up done. Rarely needs to take second Protonix. Trouble seeing clearly with left eye despite correction with glasses. Cannot read what right eye can read. Can see shapes and colors. Can read with left eye if pulls book closer. Has had cataracts taken care of. Had been fine before without glasses. Had fall in May and hit back of head and gotten knocked out of place. No double vision. PAST MEDICAL HISTORY Diagnosis Date Acute gastritis without mention of hemorrhage Chronic airway obstruction, not elsewhere classified 08/29/2014 Depressive disorder, not elsewhere classified Dysmetabolic syndrome X 01/08/2005 Glucose intolerance low HDL Elevated LDL Obesity Esophageal reflux Esophageal reflux Generalized osteoarthrosis, unspecified site Gout Migraine without aura Mixed hyperlipidemia Myalgia and myositis, unspecified Nausea Obesity, unspecified Partially edentulous maxilla has upper denture Phlebitis and thrombophlebitis of unspecified site 01/08/2005 Hx of DVT associated w/ OCP 10/1994, rt leg fracture 1976 Takotsubo cardiomyopathy Thoracic or lumbosacral neuritis or radiculitis, unspecified Unspecified disorder of kidney and ureter Unspecified essential hypertension 01/08/2005 VT (ventricular tachycardia) (HCC) 01/09/2016 Current Outpatient Medications Medication Sig venlafaxine (EFFEXOR) 75 mg tablet Take one(1) tablet twice daily as directed. lisinopril (ZESTRIL) 20 mg tablet Take 1 tablet by mouth once daily. carvedilol (COREG) 12.5 mg tablet Take 1 tablet by mouth two times a day. metFORMIN ER (GLUCOPHAGE XR) 500 mg 24 hr tablet Take 2 tablets by mouth daily with breakfast. cephALEXin (KEFLEX) 250 mg capsule Take 1 capsule by mouth once daily. rosuvastatin (CRESTOR) 5 mg tablet Take 1 tablet by mouth once daily. pantoprazole DR (PROTONIX) 40 mg tablet Take 1 tablet by mouth once daily. blood sugar diagnostic (BLOOD GLUCOSE TEST) test strip Test blood sugar(s) one time daily. Dx: Type 2 DM - Controlled E11.9 Insulin: No albuterol HFA (PROAIR HFA) 90 mcg/actuation inhaler Inhale 2 Puffs as instructed every 6 hours as needed. benzonatate (TESSALON PERLES) 100 mg capsule Take 2 capsules by mouth three times a day as needed. ondansetron (ZOFRAN) 8 mg tablet Take 1 tablet by mouth every 8 hours as needed for nausea/vomiting. Cranberry 500 mg cap Take 1 capsule by mouth twice daily. oxyCODONE ER (OXYCONTIN) 10 mg 12 hr tablet Take 10 mg by mouth every 12 hours. morphine IR 15 mg tablet Take 15 mg by mouth twice daily. L. acidophilus-L. rhamnosus (PROBIOTIC) 15 billion cell cap Take 1 scoop by mouth once daily. therapeutic multivitamin (THERA VITAMIN) tablet Take 1 tablet by mouth once daily. Vit H-Bxmnfv-Oprmdb-Grape 97-967-07-75-20 mg cap Take by mouth. CALCIUM CARBONATE/VITAMIN D2 (CALCIUM + VITAMIN D ORAL) Take by mouth once daily. Gummies, calcium 1000 mg and vit d 1600 IU aspirin(ADULT ASPIRIN EC LOW STRENGTH 81 MG TAB, DELAYED RELEASE) Take by mouth twice daily. No current facility-administered medications for this visit. Review of Systems Objective BP 128/70 (BP Site: Left Arm, BP Position: Sitting, BP Cuff Size: Large Adult) Pulse 77 Temp (!) 34.9 ?C (94.9 ?F) Resp 14 Ht 157.5 cm (5' 2) Wt 85.3 kg (188 lb) SpO2 97% BMI 34.39 kg/m? Physical Exam Constitutional: Appearance: Normal appearance. HENT: Head: Normocephalic. Eyes: Conjunctiva/sclera: Conjunctivae normal. Cardiovascular: Rate and Rhythm: Normal rate and regular rhythm. Heart sounds: Normal heart sounds. Pulmonary: Effort: Pulmonary effort is normal. Breath sounds: Normal breath sounds. Musculoskeletal: Right lower leg: No edema. Left lower leg: No edema. Skin: General: Skin is warm and dry. Neurological: General: No focal deficit present. Mental Status: She is alert and oriented to person, place, and time. Psychiatric: Mood and Affect: Mood normal. Behavior: Behavior normal. Thought Content: Thought content normal. Judgment: Judgment normal. Last labs: Latest Ref Rng 02/18/2022 06/23/2022 10/21/2022 04/17/2023 WBC 3.70 - 11.00 k (more content not included)...[facility] 10-31-2023 History of Present illness Narrative* Robin Quinonez, ROB.REPAIR TECHNICIAN - 10/31/2023 3:03 PM EDT Subjective HPI Nontoxic-appearing female presents urgent care chief plaint cough sputum production. Duration of symptoms 2 weeks. Associated symptoms listed above. States cough is not worsening just not improving. History of bronchitis this feels similar. States she was diagnosed with COPD about 20 years ago. States has had bronchitis flareups in past this feels similar. No OTC medications today. No known sick contacts. Denies any fever body aches chills chest pain shortness of breath pleuritic pain hemoptysis nausea vomiting abdominal pain change in bowel or bladder habits. Past medical history prescription medication use and allergies reviewed. .Patient presents with: Cough: Cough x 2 weeks PAST MEDICAL HISTORY Diagnosis Date Acute gastritis without mention of hemorrhage Chronic airway obstruction, not elsewhere classified 08/29/2014 Depressive disorder, not elsewhere classified Dysmetabolic syndrome X 01/08/2005 Glucose intolerance low HDL Elevated LDL Obesity Esophageal reflux Esophageal reflux Generalized osteoarthrosis, unspecified site Gout Migraine without aura Mixed hyperlipidemia Myalgia and myositis, unspecified Nausea Obesity, unspecified Partially edentulous maxilla has upper denture Phlebitis and thrombophlebitis of unspecified site 01/08/2005 Hx of DVT associated w/ OCP 10/1994, rt leg fracture 1976 Takotsubo cardiomyopathy Thoracic or lumbosacral neuritis or radiculitis, unspecified Unspecified disorder of kidney and ureter Unspecified essential hypertension 01/08/2005 VT (ventricular tachycardia) (HCC) 01/09/2016 PAST SURGICAL HISTORY Procedure Laterality Date APPENDECTOMY ~1978 COLONOSCOPY FLX DX W/COLLJ SPEC WHEN PFRMD 11/15/2004 Colonoscopy COLONOSCOPY FLX DX W/COLLJ SPEC WHEN PFRMD 12/22/12 Colonoscopy EGD TRANSORAL BIOPSY SINGLE/MULTIPLE 12/04/08 ESOPHAGOGASTRODUODENOSCOPY TRANSORAL DIAGNOSTIC 12/22/12 EGD PAST SURGICAL HISTORY OF ~1999 Arthroplasty of left hip PAST SURGICAL HISTORY OF 1997 Hysterectomy and right oophorectomy PAST SURGICAL HISTORY OF 2000 Back surgery PAST SURGICAL HISTORY OF 2005 Right knee replacement PAST SURGICAL HISTORY OF D&C PAST SURGICAL HISTORY OF left CMC arthroplasty with tendon PAST SURGICAL HISTORY OF age 1 left wrist surgery PAST SURGICAL HISTORY OF multiple injections through pain management PAST SURGICAL HISTORY OF 01/04/2019 Left TKR ALLERGIES Adhesive, Amoxicillin, Ativan [Lorazepam], Codeine, Cytotec [Misoprostol], Flovent [Fluticasone Propionate], Lodine [Etodolac], Lubiprostone, Macrobid [Nitrofurantoin Monohyd/M-Cryst], Prevacid [Lansoprazole], and Topamax [Topiramate] MEDICATIONS venlafaxine (EFFEXOR) 75 mg tablet Take one(1) tablet twice daily as directed. lisinopril (ZESTRIL) 20 mg tablet Take 1 tablet by mouth once daily. carvedilol (COREG) 12.5 mg tablet Take 1 tablet by mouth two times a day. metFORMIN ER (GLUCOPHAGE XR) 500 mg 24 hr tablet Take 2 tablets by mouth daily with breakfast. cephALEXin (KEFLEX) 250 mg capsule Take 1 capsule by mouth once daily. rosuvastatin (CRESTOR) 5 mg tablet Take 1 tablet by mouth once daily. pantoprazole DR (PROTONIX) 40 mg tablet Take 1 tablet by mouth once daily. blood sugar diagnostic (BLOOD GLUCOSE TEST) test strip Test blood sugar(s) one time daily. Dx: Type2 DM - Controlled E11.9 Insulin: No albuterol HFA (PROAIR HFA) 90 mcg/actuation inhaler Inhale 2 Puffs as instructed every 6 hours as needed. benzonatate (TESSALON PERLES) 100 mg capsule Take 2 capsules by mouth three times a day as needed. ondansetron (ZOFRAN) 8 mg tablet Take 1 tablet by mouth every 8 hours as needed for nausea/vomiting. Cranberry 500 mg cap Take 1 capsule by mouth twice daily. oxyCODONE ER (OXYCONTIN) 10 mg 12 hr tablet Take 10 mg by mouth every 12 hours. morphine IR 15 mg tablet Take 15 mg by mouth twice daily. L. acidophilus-L. rhamnosus (PROBIOTIC) 15 billion cell cap Take 1 scoop by mouth once daily. therapeutic multivitamin (THERA VITAMIN) tablet Take 1 tablet by mouth once daily. Vit U-Frjkcq-Deqwfz-Grape 95-494-52-75-20 mg cap Take by mouth. CALCIUM CARBONATE/VITAMIN D2 (CALCIUM + VITAMIN D ORAL) Take by mouth once daily. Gummies, calcium 1000 mg and vit d 1600 IU aspirin(ADULT ASPIRIN EC LOW STRENGTH 81 MG TAB, DELAYED RELEASE) Take by mouth twice daily. FAMILY HISTORY Problem Relation Age of Onset other (kidney failure) Mother other (unknown) Father Coronary Artery Disease Maternal Grandmother Stroke Maternal Grandfather Coronary Artery Disease Maternal Uncle other (tumor on leg) Brother Social History Tobacco Use Smoking status: Former Packs/day: 0.50 Years: 15.00 Additional pack years: 0.00 Total pack years: 7.50 Types: Cigarettes Quit date: 1993 Years since quittin.4 Smokeless tobacco: Never Vaping Use Vaping Use: Never used Substance Use Topics Alcohol use: Yes Comment: 1-2 per yr Drug use: No BP 148/84 Pulse 79 Temp 37.1 C (98.7 F) (Tympanic) Resp 18 Wt 85.6 kg (188 lb 11.4 oz) SpO2 96% BMI 34.52 kg/m Review of Systems Constitutional: Negative for chills, fever and malaise/fatigue. HENT: Negative for congestion, ear discharge, ear pain, sinus pain and sore throat. Eyes: Negative for blurred vision, pain, discharge and redness. Respiratory: Positive for cough and sputum production. Negative for hemoptysis, shortness of breath, wheezing and stridor. Cardiovascular: Negative for chest pain. Gastrointestinal: Negative for abdominal pain, diarrhea, nausea and vomiting. Musculoskeletal: Negative for myalgias. Skin: Negative for itching and rash. Neurological: Negative for dizziness and headaches. Objective Physical Exam Constitutional: General: She is not in acute distress. Appearance: She is not diaphoretic. HENT: Head: Normocephalic. Jaw: No trismus, tenderness, swelling or pain on movement. Nose: Congestion present. Mouth/Throat: Mouth: Mucous membranes are moist. Pharynx: Oropharynx is clear. Uvula midline. No pharyngeal swelling, oropharyngeal exudate, posterior oropharyngeal erythema or uvula swelling. Eyes: Conjunctiva/sclera: Conjunctivae normal. Pupils: Pupils are equal, round, and reactive to light. Cardiovascular: Rate and Rhythm: Normal rate and regular rhythm. Heart sounds: Normal heart sounds. Pulmonary: Effort: Pulmonary effort is normal. No tachypnea, accessory muscle usage or respiratory distress. Breath sounds: No stridor. Wheezing present. No rhonchi or rales. Abdominal: General: There is no distension. Palpations: Abdomen is soft. Tenderness: There is no abdominal tenderness. There is no guarding or rebound. Musculoskeletal: Cervical back: Normal range of motion and neck supple. No edema, erythema, rigidity or tenderness. No pain with movement. Normal range of motion. Lymphadenopathy: Cervical: No cervical adenopathy. Skin: General: Skin is warm and dry. Neurological: Mental Status: She is alert and oriented to person, place, and time. ASSESSMENT/PLAN: 1. Acute cough - ICD9: 786.2, ICD10: R05.1 (primary diagnosis) - XR CHEST 2V FRONTAL/LAT 2. Lower resp. tract infection - ICD9: 519.8, ICD10: J22 Diagnosed with lower respiratory tract infection. Will treat as COPD exacerbation. Placed on prednisone and doxycycline. Educated on risk and benefits of both medications. If x-ray shows infiltrates will add on beta- lactam. Patient was educated on supportive therapies. Patient will follow up with primary care provider as needed. Patient was instructed to immediately proceed to emergency room for any new, worsening, or symptoms lasting longer than anticipated. The patient's clinical presentationis otherwise unremarkable at this time. Based on exam and clinical finding, the patient is stable for discharge. Plan of care was discussed with patient. Patient verbalizes understanding and agrees to plan of care. This note was generated using Cubeyou software. It may contain errors in wording, punctuation, or spelling. Robin Quinonez APRN.JAYDON documented in this encounterBarberton [facility] Hospital02-02-2024 Miscellaneous Notes* Telephone Encounter - Chaparrita Saravia LPN - 06/12/2023 3:08 PM EST [facility] was given providers message and verbalized understanding. * Telephone Encounter - Marianna Finnegan APRN.PEDIATRIC CLINICAL NURSE SPECIALIST - 06/12/2023 2:13 PM EST These are refills of previously tolerated medications and need to be refilled. * Telephone Encounter - Soo Avalos LPN - 06/12/2023 12:18 PM EST [facility] called with 2 medications coming up with allergy alerts. 1)Pantoprazole pt has allergy to Lansoprazole 2)Cephalexin pt has allergy to Amoxicillin REF# [id number] Please advise [facility] direct line [phone]. Soo Avalos LPN documented in this encounterBarberton Citizens Hospital01-28-2024 Miscellaneous Notes* Telephone Encounter - Sheri Hutchins MD - 06/07/2023 6:38 PM EST Okayed * Telephone Encounter - Ramón Griffin LPN - 06/06/2023 11:21 AM EST Pt is changing mail away pharmacy's. Requesting rx(s) [facility] to [facility] Rx(s) pending. Please review and file. Requested Prescriptions Pending Prescriptions Disp Refills venlafaxine (EFFEXOR) 75 mg tablet 60 tablet 5 Sig: Take one(1) tablet twice daily as directed. lisinopril (ZESTRIL) 20 mg tablet 90 tablet 3 Sig: Take 1 tablet by mouth once daily. carvedilol (COREG) 12.5 mg tablet 180 tablet 3 Sig: Take 1 tablet by mouth two times a day. metFORMIN ER (GLUCOPHAGE XR) 500 mg 24 hr tablet 180 tablet 3 Sig: Take 2 tablets by mouth daily with breakfast. cephALEXin (KEFLEX) 250 mg capsule 90 capsule 3 Sig: Take 1 capsule by mouth once daily. rosuvastatin (CRESTOR) 5 mg tablet 90 tablet 3 Sig: Take 1 tablet by mouth once daily. pantoprazole DR (PROTONIX) 40 mg tablet 90 tablet 3 Sig: Take 1 tablet by mouth once daily. Date of last office visit in primary care: 10/22/2022 Date of next office visit in primary care: 06/23/2023 Please advise. Thank you. Ramón Griffin LPN. documented in this encounterBarberton [facility] Hospital12-21-2023 Miscellaneous Notes* Telephone Encounter - Arabella Britton RN - 04/30/2023 9:05 AM EST Patient calls and notified that prescription sent into pharmacy. Patient voices understanding. Arabella Britton RN * Telephone Encounter - Dann Christianson Ma - 04/30/2023 9:02 AM EST Left message to call office. 04/30/2023 9:02 AM * Telephone Encounter - Sheri Hutchins MD - 04/29/2023 6:46 PM EST Try Zpak instead. Given a few times in the past Follow up in office if not getting better The following approved medication requests have been transmitted electronically. Requested Prescriptions Signed Prescriptions Disp Refills azithromycin (ZITHROMAX) 250 mg tablet 6 tablet 0 Sig: Take 2 tablets by mouth once daily for 1 day, THEN 1 tablet once daily for 4 days. Authorizing Provider: SHERI HUTCHINS MD * Telephone Encounter - Chaparrita Saravia LPN - 04/27/2023 4:31 PM EST Patient comes into husbands appointment today and states that she was seen in urgent care 04/17/23 for: Bronchitis - ICD9: 490, ICD10: J40 Cxest xray clear. Hx copd, will treat with albuterol mdi, tessalon and doxycycline. Followup with pcp if worsening. - XR CHEST 2V FRONTAL/LAT. Patient states she continue to have cough and is wondering if Dr. Hutchins would something else to the pharmacy. Does not feel medication is working. documented in this encounterBarberton [facility] Hospital12-11-2023 Miscellaneous Notes* Telephone Encounter - Kina Smith RN - 04/20/2023 5:26 PM EST Spoke with patient. Given message from provider's office. Patient verbalizes understanding. Kina Smith RN * Telephone Encounter - Marilou Dias - 04/20/2023 2:33 PM EST Left message for patient to return call. Marilou Dias * Telephone Encounter - Caroline Snyder MA - 04/19/2023 1:46 PM EST ----- Message from Edwina Holcomb APRN.REPAIR TECHNICIAN sent at 04/19/2023 8:07 AM EST ----- Urine culture did not show any evidence of infection. If not improving, recommend follow up with PCP. Ewdina Holcomb CNP documented in this encounterBarberton [facility] Hospital12-08-2023 History of Present illness Narrative* Helene Santamaria PA-C - 04/17/2023 3:37 PM EST This note was created using NoteWriter. Subjective Chaparrita Barajas is a 68 year old female. HPI Presents with a chief complaint of cough and chest congestion for a week. She states cough has beenproductive. She states she does have a history of COPD but has not had issues in a long time. She did have a fever initially but that has broke. She denies chest pain. She has had some wheezing. No diarrhea or vomiting. She has had some dysuria and itching in the vaginal area. This has been going on about a week as well. She is diabetic. Well-controlled last A1c at 6.0. Denies recent antibiotics.She was concern for UTI. Review of Systems Constitutional: Positive for fatigue and fever. HENT: Positive for congestion. Negative for ear pain, sinus pressure, sinus pain and sore throat. Respiratory: Positive for cough and wheezing. Negative for shortness of breath. Cardiovascular: Negative. Gastrointestinal: Negative. Genitourinary: Positive for dysuria, frequency and vaginal pain. Negative for hematuria and urgency. Musculoskeletal: Negative. All other systems reviewed and are negative. PAST MEDICAL HISTORY Diagnosis Date Acute gastritis without mention of hemorrhage Chronic airway obstruction, not elsewhere classified 08/29/2014 Depressive disorder, not elsewhere classified Dysmetabolic syndrome X 01/08/2005 Glucose intolerance low HDL Elevated LDL Obesity Esophageal reflux Esophageal reflux Generalized osteoarthrosis, unspecified site Gout Migraine without aura Mixed hyperlipidemia Myalgia and myositis, unspecified Nausea Obesity, unspecified Partially edentulous maxilla has upper denture Phlebitis and thrombophlebitis of unspecified site 01/08/2005 Hx of DVT associated w/ OCP 10/1994, rt leg fracture 1976 Takotsubo cardiomyopathy Thoracic or lumbosacral neuritis or radiculitis, unspecified Unspecified disorder of kidney and ureter Unspecified essential hypertension 01/08/2005 VT (ventricular tachycardia) (HCC) 01/09/2016 Current Outpatient Medications Medication Sig Dispense Refill lisinopril (ZESTRIL) 20 mg tablet Take 1 tablet by mouth once daily. 90 tablet 3 venlafaxine (EFFEXOR) 75 mg tablet Take one(1) tablet twice daily as directed. 60 tablet 5 carvedilol (COREG) 12.5 mg tablet Take 1 tablet by mouth twice daily. 180 tablet 3 carvedilol (COREG) 12.5 mg tablet Take 1 tablet by mouth twice daily. 30 tablet 0 ondansetron (ZOFRAN) 8 mg tablet Take 1 tablet by mouth every 8 hours as needed for nausea/vomiting. 5 tablet 0 metFORMIN ER (GLUCOPHAGE XR) 500 mg 24 hr tablet Take 2 tablets by mouth daily with breakfast. 180 tablet 3 cephALEXin (KEFLEX) 250 mg capsule Take 1 capsule by mouth once daily. 90 capsule 3 rosuvastatin (CRESTOR) 5 mg tablet Take 1 tablet by mouth once daily. [address] (PROTONIX) 40 mg tablet Take 1 tablet by mouth once daily. 90 tablet 3 blood sugar diagnostic (BLOOD GLUCOSE TEST) test strip Test blood sugar(s) one time daily. Dx: Type2 DM - Controlled E11.9 Insulin: No 50 Strip 11 Cranberry 500 mg cap Take 1 capsule by mouth twice daily. oxyCODONE ER (OXYCONTIN) 10 mg 12 hr tablet Take 10 mg by mouth every 12 hours. morphine IR 15 mg tablet Take 15 mg by mouth twice daily. L. acidophilus-L. rhamnosus (PROBIOTIC) 15 billion cell cap Take 1 scoop by mouth once daily. 0 therapeutic multivitamin (THERA VITAMIN) tablet Take 1 tablet by mouth once daily. 0 Vit B-Ryuerf-Jxchqv-Grape 56-942-39-75-20 mg cap Take by mouth. 0 CALCIUM CARBONATE/VITAMIN D2 (CALCIUM + VITAMIN D ORAL) Take by mouth once daily. Gummies, calcium 1000 mg and vit d 1600 IU aspirin(ADULT ASPIRIN EC LOW STRENGTH 81 MG TAB, DELAYED RELEASE) Take by mouth twice daily. 0 albuterol HFA (PROAIR HFA) 90 mcg/actuation inhaler Inhale 2 Puffs as instructed every 6 hours as needed. 1 Each 0 benzonatate (TESSALON PERLES) 100 mg capsule Take 2 capsules by mouth three times a day as needed. 30 capsule 0 fluconazole (DIFLUCAN) 150 mg tablet Take 1 tablet by mouth once daily for 1 day. 1 tablet 0 doxycycline (VIBRA-TABS) 100 mg tablet Take 1 tablet by mouth two times a day for 7 days. 14 tablet0 No current facility-administered medications for this visit. PAST SURGICAL HISTORY Procedure Laterality Date APPENDECTOMY ~1978 COLONOSCOPY FLX DX W/COLLJ SPEC WHEN PFRMD 11/15/2004 Colonoscopy COLONOSCOPY FLX DX W/COLLJ SPEC WHEN PFRMD 12/22/12 Colonoscopy EGD TRANSORAL BIOPSY SINGLE/MULTIPLE 12/04/08 ESOPHAGOGASTRODUODENOSCOPY TRANSORAL DIAGNOSTIC 12/22/12 EGD PAST SURGICAL HISTORY OF ~2000 Arthroplasty of left hip PAST SURGICAL HISTORY OF 1997 Hysterectomy and right oophorectomy PAST SURGICAL HISTORY OF 2001 Back surgery PAST SURGICAL HISTORY OF 2006 Right knee replacement PAST SURGICAL HISTORY OF D&C PAST SURGICAL HISTORY OF left CMC arthroplasty with tendon PAST SURGICAL HISTORY OF age 1 left wrist surgery PAST SURGICAL HISTORY OF multiple injections through pain management PAST SURGICAL HISTORY OF 01/04/2019 Left TKR FAMILY HISTORY Problem Relation Age of Onset other (kidney failure) Mother other (unknown) Father Coronary Artery Disease Maternal Grandmother Stroke Maternal Grandfather Coronary Artery Disease Maternal Uncle other (tumor on leg) Brother Social History Tobacco Use Smoking status: Former Packs/day: 0.50 Years: 15.00 Additional pack years: 0.00 Total pack years: 7.50 Types: Cigarettes Quit date: 1993 Years since quittin.9 Smokeless tobacco: Never Vaping Use Vaping Use: Never used Substance Use Topics Alcohol use: Yes Comment: 1-2 per yr Drug use: No Objective BP 126/84 Pulse 76 Temp 37 C (98.6 F) (Tympanic) Resp 18 Wt 83.8 kg (184 lb 12.8 oz) WzN125% BMI 33.80 kg/m Physical Exam Vitals reviewed. Constitutional: Appearance: Normal appearance. HENT: Head: Normocephalic and atraumatic. Right Ear: Tympanic membrane, ear canal and external ear normal. Left Ear: Tympanic membrane, ear canal and external ear normal. Nose: Congestion present. Mouth/Throat: Mouth: Mucous membranes are moist. Pharynx: Oropharynx is clear. Cardiovascular: Rate and Rhythm: Normal rate and regular rhythm. Heart sounds: Normal heart sounds. Pulmonary: Effort: Pulmonary effort is normal. Breath sounds: Wheezing present. Musculoskeletal: Cervical back: Neck supple. Skin: General: Skin is warm and dry. Findings: No rash. Neurological: Mental Status: She is alert. Assessment and Plan ASSESSMENT/PLAN: 1. Urinary frequency - ICD9: 788.41, ICD10: R35.0 (primary diagnosis) acute - UA positive for elle esterase- trac eonly, will defer treatment until culture comes back. She is having itching, likely more yeast infection. Treat with diflucan. - Send urine for culture - UA DIP, URINE (POC) - URINE CULTURE 2. Bronchitis - ICD9: 490, ICD10: J40 Cxest xray clear. Hx copd, will treat with albuterol mdi, tessalon and doxycycline. Followup with pcp if worsening. - XR CHEST 2V FRONTAL/LAT 3. Vaginal itching - ICD9: 698.1, ICD10: N89.8 Helene Santamaria PA-C documented in this encounterBarberton [facility]12-08-2023 History of Present illness Narrative* Lilibeth Parra RT(R) - 04/17/2023 3:10 PM EST Radiology Service Progress Note PATIENT NAME: Chaparrita Barajas DATE OF SERVICE: April 17, 2023 TIME: 3:09 PM PATIENT IDENTITY VERIFICATION COMPLETED USING TWO (2) IDENTIFIERS: Name and Date of confirmedby patient verbally. FALL SCREENING: Has the patient had 2 falls in the last year or 1 fall with injury or currently using an Ambulatory Assistive Device (Walker, Cane, Wheelchair, Crutches, etc.)? No PATIENT GENDER DATA: Female. status: : No status: NO. PATIENT RELEVANT IMPLANT DATA REVIEWED: Not Applicable RADIOLOGY DEPARTMENT: General X-ray: Exam(s) Completed: Chest X-Ray PERIPHERAL IV DATA: Not applicable SIGNED BY: RT Kyara(R) April 17, 2023 3:09 PM documented in this encounterBarberton [facility] Hospital12-06-2023 Miscellaneous Notes* Telephone Encounter - Kina Smith RN - 04/15/2023 3:05 PM EST Patient calling with request for mammogram order. Pended. Kina Smith RN documented in this encounterBarberton [facility] Hospital09-13-2023 Miscellaneous Notes* Telephone Encounter - Sheri Hutchins MD - 01/21/2023 9:05 AM EDT Okayed * Telephone Encounter - Shelly Hein LPN - 01/21/2023 7:32 AM EDT Patient has been identified by name and date of : Yes, Patient phones for refill(s): Requested Prescriptions Pending Prescriptions Disp Refills lisinopril (ZESTRIL) 20 mg tablet 90 tablet 3 Sig: Take 1 tablet by mouth once daily. Date of last office visit in primary care: 10/22/2022 4 month follow-up: 03/04/2023 Last 2 Encounter Wt Readings: Date: Wt: 11/19/2022 85.5 kg (188 lb 6.4 oz) 10/22/2022 84.4 kg (186 lb) Previous labs/tests for medication: Blood Pressure: BUN (mg/dL) Date Value 10/21/2022 13 05/16/2021 10 Sodium (mmol/L) Date Value 10/21/2022 142 05/16/2021 141 Last 1 Encounter BP Readings: Date: BP: 11/19/2022 122/80 Please advise. Thank you. Shelly Hein LPN * Telephone Encounter - Jeannine Burger - 01/20/2023 4:21 PM EDT Pharmacy verified in [facility] Patient has been identified by name and date of : Yes Patient aware RX will be sent to pharmacy. No need to notify patient. pharmacy phones for refill(s): Requested Prescriptions Pending Prescriptions Disp Refills lisinopril (ZESTRIL) 20 mg tablet 90 tablet 3 Sig: Take 1 tablet by mouth once daily. Date of last office visit : 10/22/2022 Date of next office visit : 03/04/2023 Last 2 Encounter Wt Readings: Date: Wt: 11/19/2022 85.5 kg (188 lb 6.4 oz) 10/22/2022 84.4 kg (186 lb) Not applicable Please advise. Jeannine Murphy Pss documented in this encounterBarberton Citizens Hospital08-22-2023 Miscellaneous Notes* Telephone Encounter - Soo Avalos LPN - 12/30/2022 11:41 AM EDT Pt requesting medication below. Pt out of medication. Soo Avalos LPN Patient has been identified by name and date of : Yes, Provider Dr. Hutchins Date Time 11:42 am Patient phones for refill(s): Requested Prescriptions Pending Prescriptions Disp Refills venlafaxine (EFFEXOR) 75 mg tablet 60 tablet 5 Sig: Take one(1) tablet twice daily as directed. Date of last office visit in primary care: 10/22/22 next apt 03/04/23 Last 2 Encounter Wt Readings: Date: Wt: 11/19/2022 85.5 kg (188 lb 6.4 oz) 10/22/2022 84.4 kg (186 lb) Previous labs/tests for medication: Not applicable Please advise. Thank you. Soo Avalos LPN documented in this encounterBar[facility]07-12-[facility]23 Nurse Note* Tali Llanes LPN - 11/19/2022 2:14 PM EDT REVIEW OF SYSTEMS: General: The patient denies fatigue, notes weight loss, denies weight gain, denies feeling hot, andnotes feelings of cold. Eyes: The patient denies glaucoma, denies eye injury/surgery, does not wear glasses or contacts. Ear/Nose/Throat: The patient denies allergies, denies hayfever, denies ear infections, and denies bloody noses. Cardiovascular: The patient denies chest pain, denies heart disease, notes high blood pressure,denies cardiac stent, denies prior heart attack, denies irregular heart beat, notes high cholesterol, denies poor circulation, denies heart failure, other cardiac issues, notes claudication, notes cold feet, denies peripheral arterial stent. Respiratory: The patient denies tuberculosis, denies pneumonia, denies frequent cough, denies pulmonary embolism, denies shortness of breath, and denies coughing up blood. Gastrointestinal: The patient denies difficulty swallowing, notes acid reflux, denies ulcers, denies vomiting, denies jaundice/hepatitis, denies gallbladder problems, denies black or tarry stools, denies hemorrhoids, denies bleeding from rectum, denies diverticulitis, denies constipation, denies diarrhea, denies loss of stool control, and denies hernias. Kidney/Bladder: The patient denies kidney stones, denies urine infections, and denies bloody urine. Skin: The patient notes a history of skin cancer, denies bleeding/changing moles, and denies a history of skin rash. Neurologic: The patient denies a history of epilepsy/convulsions, denies headaches, denies head/spinal injuries, and denies stroke/TIA. Psychiatric: The patient denies psychiatric medications, denies depression, and denies voices, denies substance abuse. Endocrine: The patient denies thyroid disorders, notes diabetes, and denies hormonal problems. Hematologic: The patient denies a history of bruising, denies bleeding, and denies anemia, notes blood clots. Infections: The patient notes a history of measles and mumps, denies rheumatic fever, and denies sexually transmitted diseases. Musculoskeletal: The patient notes back pain/injury, notes back problems, denies sciatica, notes knee/foot trouble, notes arthritis, or notes gout. When was patient's last Mammogram screening? 2021 Last Colonoscopy: 2012 Tali Llanes LPN documented in this encounterBar[facility]07-12-2023 History of Present illness Narrative* Joanna Doan PA-C - 11/19/2022 2:11 PM EDT HISTORY AND PHYSICAL Chaparrita Barajas 1955 REFERRING PHYSICIAN: Sheri Hutchins MD CHIEF COMPLAINT: Consult HPI: The patient is a 67 year old female referred for endoscopy. Chaparrita notes no colon complaints.Patient denies any change in bowel habits, weight changes, blood in stools, black tarry stools or abdominal pain. Denies known family history of colon cancer. The patient notes no upper GI complaints. Chaprarita has undergone prior endoscopy. Last colonoscopy 12/22/[address] Garrido under [facility]. No concerning findings at that time. Patient denies chest pain, shortness of breath or recent hospitalizations. Denies problems with sedation in the past. PAST MEDICAL HISTORY Diagnosis Date Acute gastritis without mention of hemorrhage Chronic airway obstruction, not elsewhere classified 08/29/2014 Depressive disorder, not elsewhere classified Dysmetabolic syndrome X 01/08/2005 Glucose intolerance low HDL Elevated LDL Obesity Esophageal reflux Esophageal reflux Generalized osteoarthrosis, unspecified site Gout Migraine without aura Mixed hyperlipidemia Myalgia and myositis, unspecified Nausea Obesity, unspecified Partially edentulous maxilla has upper denture Phlebitis and thrombophlebitis of unspecified site 01/08/2005 Hx of DVT associated w/ OCP 10/1994, rt leg fracture 1976 Takotsubo cardiomyopathy Thoracic or lumbosacral neuritis or radiculitis, unspecified Unspecified disorder of kidney and ureter Unspecified essential hypertension 01/08/2005 VT (ventricular tachycardia) (HCC) 01/09/2016 PAST SURGICAL HISTORY Procedure Laterality Date APPENDECTOMY ~1978 COLONOSCOPY FLX DX W/COLLJ SPEC WHEN PFRMD 11/15/2004 Colonoscopy COLONOSCOPY FLX DX W/COLLJ SPEC WHEN PFRMD 12/22/12 Colonoscopy EGD TRANSORAL BIOPSY SINGLE/MULTIPLE 12/04/08 ESOPHAGOGASTRODUODENOSCOPY TRANSORAL DIAGNOSTIC 12/22/12 EGD PAST SURGICAL HISTORY OF ~2000 Arthroplasty of left hip PAST SURGICAL HISTORY OF 1997 Hysterectomy and right oophorectomy PAST SURGICAL HISTORY OF 2001 Back surgery PAST SURGICAL HISTORY OF 2005 Right knee replacement PAST SURGICAL HISTORY OF D&C PAST SURGICAL HISTORY OF left CMC arthroplasty with tendon PAST SURGICAL HISTORY OF age 1 left wrist surgery PAST SURGICAL HISTORY OF multiple injections through pain management PAST SURGICAL HISTORY OF 01/04/2019 Left TKR Current Outpatient Medications Medication Sig venlafaxine (EFFEXOR) 75 mg tablet Take one(1) tablet twice daily as directed. metFORMIN ER (GLUCOPHAGE XR) 500 mg 24 hr tablet Take 2 tablets by mouth daily with breakfast. cephALEXin (KEFLEX) 250 mg capsule Take 1 capsule by mouth once daily. rosuvastatin (CRESTOR) 5 mg tablet Take 1 tablet by mouth once daily. pantoprazole DR (PROTONIX) 40 mg tablet Take 1 tablet by mouth once daily. lisinopril (ZESTRIL, PRINIVIL) 20 mg tablet Take 1 tablet by mouth once daily. carvedilol (COREG) 12.5 mg tablet Take 1 tablet by mouth twice daily. Cranberry 500 mg cap Take 1 capsule by mouth twice daily. oxyCODONE ER (OXYCONTIN) 10 mg 12 hr tablet Take 10 mg by mouth every 12 hours. morphine IR 15 mg tablet Take 15 mg by mouth twice daily. L. acidophilus-L. rhamnosus (PROBIOTIC) 15 billion cell cap Take 1 scoop by mouth once daily. therapeutic multivitamin (THERA VITAMIN) tablet Take 1 tablet by mouth once daily. Vit K-Mqnytw-Rjabpj-Grape 48-722-49-75-20 mg cap Take by mouth. CALCIUM CARBONATE/VITAMIN D2 (CALCIUM + VITAMIN D ORAL) Take by mouth once daily. Gummies, calcium 1000 mg and vit d 1600 IU aspirin(ADULT ASPIRIN EC LOW STRENGTH 81 MG TAB, DELAYED RELEASE) Take by mouth twice daily. blood sugar diagnostic (BLOOD GLUCOSE TEST) test strip Test blood sugar(s) one time daily. Dx: Type2 DM - Controlled E11.9 Insulin: No No current facility-administered medications for this visit. ALLERGIES: Adhesive, Amoxicillin, Ativan [Lorazepam], Codeine, Cytotec [Misoprostol], Flovent [Fluticasone Propionate], Lodine [Etodolac], Lubiprostone, Macrobid [Nitrofurantoin Monohyd/M-Cryst], Prevacid [Lansoprazole], and Topamax [Topiramate] PERSONAL HISTORY: Social History Tobacco Use Smoking status: Former Packs/day: 0.50 Years: 15.00 Total pack years: 7.50 Types: Cigarettes Quit date: 1993 Years since quittin.5 Smokeless tobacco: Never Vaping Use Vaping Use: Never used Substance Use Topics Alcohol use: Yes Comment: 1-2 per yr Drug use: No FAMILY HISTORY: FAMILY HISTORY Problem Relation Age of Onset other (kidney failure) Mother other (unknown) Father Coronary Artery Disease Maternal Grandmother Stroke Maternal Grandfather Coronary Artery Disease Maternal Uncle other (tumor on leg) Brother REVIEW OF SYMPTOMS: The review of systems data was entered by the nurse and reviewed by mi Nursing Notes: Tali Llanes LPN 11/19/2022 2:17 PM Signed REVIEW OF SYSTEMS: General: The patient denies fatigue, notes weight loss, denies weight gain, denies feeling hot, andnotes feelings of cold. Eyes: The patient denies glaucoma, denies eye injury/surgery, does not wear glasses or contacts. Ear/Nose/Throat: The patient denies allergies, denies hayfever, denies ear infections, and denies bloody noses. Cardiovascular: The patient denies chest pain, denies heart disease, notes high blood pressure,denies cardiac stent, denies prior heart attack, denies irregular heart beat, notes high cholesterol, denies poor circulation, denies heart failure, other cardiac issues, notes claudication, notes cold feet, denies peripheral arterial stent. Respiratory: The patient denies tuberculosis, denies pneumonia, denies frequent cough, denies pulmonary embolism, denies shortness of breath, and denies coughing up blood. Gastrointestinal: The patient denies difficulty swallowing, notes acid reflux, denies ulcers, denies vomiting, denies jaundice/hepatitis, denies gallbladder problems, denies black or tarry stools, denies hemorrhoids, denies bleeding from rectum, denies diverticulitis, denies constipation, denies diarrhea, denies loss of stool control, and denies hernias. Kidney/Bladder: The patient denies kidney stones, denies urine infections, and denies bloody urine. Skin: The patient notes a history of skin cancer, denies bleeding/changing moles, and denies a history of skin rash. Neurologic: The patient denies a history of epilepsy/convulsions, denies headaches, denies head/spinal injuries, and denies stroke/TIA. Psychiatric: The patient denies psychiatric medications, denies depression, and denies voices, denies substance abuse. Endocrine: The patient denies thyroid disorders, notes diabetes, and denies hormonal problems. Hematologic: The patient denies a history of bruising, denies bleeding, and denies anemia, notes blood clots. Infections: The patient notes a history of measles and mumps, denies rheumatic fever, and denies sexually transmitted diseases. Musculoskeletal: The patient notes back pain/injury, notes back problems, denies sciatica, notes knee/foot trouble, notes arthritis, or notes gout. When was patient's last Mammogram screening? 2021 Last Colonoscopy: 2012 Tali Llanes LPN I have confirmed and edited as necessary, the PFSH and ROS obtained by others. Joanna Doan PA-C PHYSICAL EXAMINATION: General: The patient is 67 year old female, well nourished, well hydrated in no acute distress. Thepatient is oriented to time, place, and person. VITALS: Blood pressure 122/80, pulse 77, temperature 36.8 C (98.2 F), temperature source Temporal, resp. rate 17, weight 85.5 kg (188 lb 6.4 oz), SpO2 94 %. Body mass index is 34.46 kg/m . HEENT: Normal cephalic, ataumatic, pupils are equally round, sclera are anicteric, mucous membranesare moist, oropharynx is clear. Neck has no masses, asymmetry or lymphadenopathy. Respiratory: Clear to auscultation and percussion. Normal respiratory excursion and pattern. Cardiac: Examination is regular rate and rhythm. Normal S1/S2 Abdominal exam: Soft, nontender, with no palpable masses. No hepatosplenomegaly. No palpable hernias. Extremities: no clubbing, cyanosis or edema. No adenopathy. LABORATORY VALUES: As Noted RADIOLOGIC STUDIES: As Noted Assessment IMPRESSION: encounter for screening colonoscopy PLAN: I have reviewed my findings with the surgeon. Will plan for lower endoscopy. We discussed therisks and benefits of the planned endoscopy. I have informed the patient that complications can occur including failure to complete the endoscopy and perforation. The patient had the opportunity to ask questions concerning the planned endoscopy. My staff has also explained the procedure to the patient in understandable terms and has given the patient printed material concerning the procedure. Thepatient freely consents to surgery. I plan to use Miralax/Dulcolax bowel preparation. Patient prescribed zofran to take in case of nausea with prep We will plan for [facility]est[facility] Care. Diagnoses: (Z12.11) Colon cancer screening Consultation requested by Dr. Hutchins for an opinion regarding screening colonoscopy. My final recommendations will be communicated back to the requesting physician by way of shared Medical record or letter to requesting physician via US mail. Joanna Vernonia, PA-C documented in this encounterBar[facility]06-14-2023 History of Present illness Narrative* Sheri Hutchins MD - 10/22/2022 5:14 PM EDT This note was created using Keyprriter. Subjective Chaparrita Barajas is a 67 year old female. Patient presents with: Recheck: 4 month follow up; fell at grandson's x4 weeks ago SUBJECTIVE: Chaparrita Barajas is a 67 year old year old lady here today for 4 month follow up appointment for review of medical conditions. Was really bruised on left lateral hip and back. Was really purple. Better now but really slide machine tender the lateral thigh. Was trying to take dog down steps. Leash pulled her feet out from under her on the steps. Bruising along the incisional line noted --almost resolved. Otherwise, doing well. Trips on things. Does take off glasses around her home. Doing well with weight loss. Sugars rarely over 150 since last seen. Had not had anything to drink prior to labs on 10/21. Usually drinks 5 to 6 16 ounces water per day. Does not want to eat as much when goes out. Eats half and takes other half home. PAST MEDICAL HISTORY Diagnosis Date Acute gastritis without mention of hemorrhage Chronic airway obstruction, not elsewhere classified 08/29/2014 Depressive disorder, not elsewhere classified Dysmetabolic syndrome X 01/08/2005 Glucose intolerance low HDL Elevated LDL Obesity Esophageal reflux Esophageal reflux Generalized osteoarthrosis, unspecified site Gout Migraine without aura Mixed hyperlipidemia Myalgia and myositis, unspecified Nausea Obesity, unspecified Partially edentulous maxilla has upper denture Phlebitis and thrombophlebitis of unspecified site 01/08/2005 Hx of DVT associated w/ OCP 10/1994, rt leg fracture 1976 Takotsubo cardiomyopathy Thoracic or lumbosacral neuritis or radiculitis, unspecified Unspecified disorder of kidney and ureter Unspecified essential hypertension 01/08/2005 VT (ventricular tachycardia) (HCC) 01/09/2016 Current Outpatient Medications Medication Sig venlafaxine (EFFEXOR) 75 mg tablet Take one(1) tablet twice daily as directed. metFORMIN ER (GLUCOPHAGE XR) 500 mg 24 hr tablet Take 2 tablets by mouth daily with breakfast. cephALEXin (KEFLEX) 250 mg capsule Take 1 capsule by mouth once daily. rosuvastatin (CRESTOR) 5 mg tablet Take 1 tablet by mouth once daily. pantoprazole DR (PROTONIX) 40 mg tablet Take 1 tablet by mouth once daily. lisinopril (ZESTRIL, PRINIVIL) 20 mg tablet Take 1 tablet by mouth once daily. blood sugar diagnostic (BLOOD GLUCOSE TEST) test strip Test blood sugar(s) one time daily. Dx: Type2 DM - Controlled E11.9 Insulin: No carvedilol (COREG) 12.5 mg tablet Take 1 tablet by mouth twice daily. Cranberry 500 mg cap Take 1 capsule by mouth twice daily. oxyCODONE ER (OXYCONTIN) 10 mg 12 hr tablet Take 10 mg by mouth every 12 hours. morphine IR 15 mg tablet Take 15 mg by mouth twice daily. L. acidophilus-L. rhamnosus (PROBIOTIC) 15 billion cell cap Take 1 scoop by mouth once daily. therapeutic multivitamin (THERA VITAMIN) tablet Take 1 tablet by mouth once daily. CALCIUM CARBONATE/VITAMIN D2 (CALCIUM + VITAMIN D ORAL) Take by mouth once daily. Gummies, calcium 1000 mg and vit d 1600 IU aspirin(ADULT ASPIRIN EC LOW STRENGTH 81 MG TAB, DELAYED RELEASE) Take by mouth twice daily. Vit Y-Czjujo-Mtdlnm-Grape 41-226-99-75-20 mg cap Take by mouth. No current facility-administered medications for this visit. Review of Systems Objective BP 110/70 Pulse 78 Resp 16 Wt 84.4 kg (186 lb) SpO2 98% BMI 34.02 kg/m Last 5 Encounter Wt Readings: Date: Wt: 10/22/2022 84.4 kg (186 lb) 06/24/2022 86.6 kg (191 lb) 01/06/2022 88.5 kg (195 lb) 11/05/2021 91.6 kg (202 lb) 05/24/2021 92.4 kg (203 lb 12.8 oz) No waist measurement recorded Estimated body mass index is 34.02 kg/m as calculated from the following: Height as of 12/20/18: 157.5 cm (5' 2). Weight as of this encounter: 84.4 kg (186 lb). Last 5 Encounter BP Readings: Date: BP: 10/22/2022 110/70 06/24/2022 118/70 01/06/2022 122/70 11/05/2021 128/74 05/24/2021 126/78 Physical Exam Component Latest Ref Rng & Units 05/16/2021 11/05/2021 02/18/2022 06/23/2022 10/21/2022 WBC 3.70 - 11.00 k/uL 7.93 6.54 10.34 9.20 9.60 RBC 3.90 - 5.20 m/uL 4.74 4.32 4.86 4.63 4.52 Hemoglobin 11.5 - 15.5 g/dL 14.4 13.0 14.6 14.1 13.7 Hematocrit 36.0 - 46.0 % 44.0 41.1 44.3 42.4 43.4 MCV 80.0 - 100.0 fL 92.8 95.1 91.2 91.6 96.0 MCH 26.0 - 34.0 pg 30.4 30.1 30.0 30.5 30.3 MCHC 30.5 - 36.0 g/dL 32.7 31.6 33.0 33.3 31.6 RDW-CV 11.5 - 15.0 % 12.3 12.9 12.2 12.3 12.4 Platelet Count 150 - 400 k/uL 303 330 338 314 376 MPV 9.0 - 12.7 fL 9.6 10.0 9.3 9.7 11.0 Neut% % 63.8 71.2 Abs Neut (ANC) 1.45 - 7.50 k/uL 5.07 7.37 Lymph% % 24.1 19.0 Abs Lymph 1.00 - 4.00 k/uL 1.91 1.96 Traverse% % 7.1 6.6 Abs Traverse <0.87 k/uL 0.56 0.68 Eosin% % 4.2 2.3 Abs Eosin <0.46 k/uL 0.33 0.24 Baso% % 0.8 0.5 Abs Baso <0.11 k/uL 0.06 0.05 Immature Gran % % 0.4 IMMATURE GRANS (ABS) <0.10 k/uL 0.04 NRBC /100 WBC 0.0 Absolute nRBC <0.01 k/uL <0.01 <0.01 <0.01 <0.01 <0.01 DTYPE Auto Nucleated Reds 0 /100 WBC 0.0 Diff Type Auto Diff Protein, Total 6.3 - 8.0 g/dL 6.6 6.8 7.0 7.1 Albumin 3.9 - 4.9 g/dL 4.2 4.0 4.3 4.1 Calcium 8.5 - 10.2 mg/dL 9.5 9.5 9.5 9.9 Bilirubin, Total 0.2 - 1.3 mg/dL 0.5 0.3 0.4 0.4 Alkaline Phosphatase 34 - 123 U/L 87 85 90 82 AST 13 - 35 U/L 18 20 14 15 Glucose 74 - 99 mg/dL 130 (H) 135 (H) 125 (H) 147 (H) BUN 7 - 21 mg/dL 10 11 13 13 Creatinine 0.58 - 0.96 mg/dL 0.91 0.91 0.80 1.04 (H) Sodium 136 - 144 mmol/L 141 140 138 142 Potassium 3.7 - 5.1 mmol/L 4.2 4.6 4.4 4.4 Chloride 97 - 105 mmol/L 101 100 99 100 CO2 22 - 30 mmol/L 27 24 29 27 Anion Gap 9 - 18 mmol/L 13 16 10 15 ALT 7 - 38 U/L 12 15 8 9 eGFR- >60 eGFR-All Other Races . >60 eGFR >=60 mL/min/1.73m 69 80 58 (L) Cholesterol, Total <200 mg/dL Duplicate request 135 Triglyceride <150 mg/dL Duplicate request 136 HDL Cholesterol >39 mg/dL Duplicate request 48 LDL Cholesterol <100 mg/dL Duplicate request 60 Non HDL Cholesterol <130 mg/dL Duplicate request 87 Fasting Time hrs 12 12 VLDL Cholesterol <30 mg/dL Duplicate request 27 TC:HDL Ratio <5.10 Duplicate request 2.81 LDL:HDL Ratio <2.54 Duplicate request 1.25 Total Cholesterol, Nonfasting <200 mg/dL 127 Triglycerides, Nonfasting <150 mg/dL 104 HDL Cholesterol, Nonfasting >39 mg/dL 45 LDL Cholesterol, Nonfasting <100 mg/dL 61 Non HDL Cholesterol, Nonfasting <130 mg/dL 82 VLDL Cholesterol, Nonfasting <30 mg/dL 21 Total Chol/HDL Ratio, Nonfasting <5.10 mg/dL 2.82 LDL/HDL Ratio, Nonfasting <2.54 mg/dL 1.36 Creatinine, Ur Random (UCRR) 20.0 - 300.0 mg/dL 262.3 173.3 Albumin, Urine Random mg/L 14.2 <12.0 Albumin/Creat Ratio <30 mg/g 5 <7 Hemoglobin A1C 4.3 - 5.6 % 6.4 (H) 6.6 (H) 6.4 (H) 6.0 (H) Estimated Average Glucose mg/dL 137 143 137 126 Magnesium 1.7 - 2.3 mg/dL 2.0 1.7 Uric Acid 2.5 - 6.6 mg/dL 6.5 WSR 0 - 20 mm/hr 26 (H) CRP <0.9 mg/dL 1.3 (H) Assessment and Plan Encounter Diagnosis ICD-10-CM 1. Controlled type 2 diabetes mellitus without complication, without long-term current use of insulin (HCC) E11.9 HGB A1C COMP METABOLIC PANEL CBC LIPID PANEL BASIC ALBUMIN/CREAT RATIO RND UR 2. Essential hypertension I10 COMP METABOLIC PANEL CBC 3. Mixed hyperlipidemia E78.2 LIPID PANEL BASIC 4. Hyperuricemia E79.0 URIC ACID BLOOD 5. Colon cancer screening Z12.11 CONSULT TO GENERAL SURGERY 6. Recurrent major depressive disorder, in partial remission (HCC) F33.41 7. Class 1 obesity due to excess calories with body mass index (BMI) of 34.0 to 34.9 in adult, unspecified whether serious comorbidity present E66.09 Z68.34 Above issues addressed with patient. Patient involved in shared decision making for management of medical issues. History and medications reviewed. Epic updated as needed Refills and/or prescriptions taken care of and meds adjusted as indicated after reviewed history, exam and labs. Health Maintenance reviewed. Updated record and/or ordered tests as recorded. Encouraged on efforts at healthy diet and regular exercise and adequate sleep. Needs to keep working on diet and exercise with lifestyle changes for effective weight loss as well as prevention of DM,and control of BP and lipids. Doing well with weight loss efforts thus far. Sheri Hutchins MD documented in this encounterBar[facility]02-03-2023 Miscellaneous Notes* Telephone Encounter - Silvia Sherry GALVEZ - 06/13/2022 11:31 AM EST Called pt to review. She will ask pcp for refills at 06/24/22 appt. * Telephone Encounter - Merna Tapia [facility] - 06/13/2022 9:18 AM EST Patient has been identified by name and date of : Yes Requested Prescriptions Pending Prescriptions Disp Refills pantoprazole DR (PROTONIX) 40 mg tablet 90 tablet 3 Sig: Take 1 tablet by mouth once daily. rosuvastatin (CRESTOR) 5 mg tablet 90 tablet 3 Sig: Take 1 tablet by mouth once daily. cephALEXin (KEFLEX) 250 mg capsule 90 capsule 3 Sig: Take 1 capsule by mouth once daily. RX INSTRUCTIONS: Pharmacy initiated this request. No need to notify patient. [facility] in this encounterBar[facility]12-08-2022 Miscellaneous Notes* Letter - Mammography Coordinator - 04/17/2022 4:59 PM EST April 17, 2022 PID: [id number] Chaparrita Barajas [address] [place] [address] Dear Ms. Barajas, We are pleased to inform you that the results of your recent breast imaging exam on 04/17/2022 are normal. Early detection of cancer is very important. We also understand recommendations regarding breast cancer screening are controversial. Please discuss with your primary care provider which strategy is best for you and whether a mammogram is right for you. Your imaging studies and report will be kept on file at [facility] as part of your permanent medical record and are available for your continuing care. Thank you for allowing us to help in meeting your health care needs. Sincerely, Dr. Palencia Interpreting Radiologist [facility] (Normal over 40) documented in this encounterBarberton Citizens Hospital12-08-2022 History of Present illness Narrative* Dariela Terrazas RT(R) - 04/17/2022 2:10 PM EST Radiology Service Progress Note PATIENT NAME: Chaparrita Barajas DATE OF SERVICE: April 17, 2022 TIME: 1:58 PM PATIENT IDENTITY VERIFICATION COMPLETED USING TWO (2) IDENTIFIERS: Name and Date of confirmedby patient verbally. FALL SCREENING: Has the patient had 2 falls in the last year or 1 fall with injury or currently using an Ambulatory Assistive Device (Walker, Cane, Wheelchair, Crutches, etc.)? No PATIENT GENDER DATA: Female. status: : No status: NO. PATIENT RELEVANT IMPLANT DATA REVIEWED: Not Applicable RADIOLOGY DEPARTMENT: Mammography PERIPHERAL IV DATA: Not applicable SIGNED BY: RT Varsha(R) April 17, 2022 1:58 PM documented in this encounterBarberton [facility] Hospital11-03-2022 Miscellaneous Notes* Telephone Encounter - Sheri Hutchins MD - 03/13/2022 7:04 PM EDT Not due for refill till May since last filled May 24, 2022 but noted pharmacy requested refill. Will see if refills remain in their computer system for May refill The following approved medication requests have been transmitted electronically. Requested Prescriptions Signed Prescriptions Disp Refills lisinopril (ZESTRIL, PRINIVIL) 20 mg tablet 90 tablet 3 Sig: Take 1 tablet by mouth once daily. Authorizing Provider: SHERI HUTCHINS MD * Telephone Encounter - Ida Cordon RN - 03/13/2022 8:29 AM EDT Patient has been identified by name and date of : Yes Pharmacy phones for refill(s): Requested Prescriptions Pending Prescriptions Disp Refills lisinopril (ZESTRIL, PRINIVIL) 20 mg tablet 90 tablet 3 Sig: Take 1 tablet by mouth once daily. Date of last office visit in primary care: 01/06/22 Last 2 Encounter Wt Readings: Date: Wt: 01/06/2022 88.5 kg (195 lb) 11/05/2021 91.6 kg (202 lb) Previous labs/tests for medication: Blood Pressure: BUN (mg/dL) Date Value 02/18/2022 13 05/16/2021 10 Sodium (mmol/L) Date Value 02/18/2022 138 05/16/2021 141 Last 1 Encounter BP Readings: Date: BP: 01/06/2022 122/70 Please advise. Thank you. Ida Cordon RN ' documented in this encounterBarber[facility]10-27-2022 Miscellaneous Notes* Telephone Encounter - Vicki Stark RN - 03/06/2022 9:57 AM EDT Scheduled 04/17/2022. Vicki Stark RN * Telephone Encounter - Cher Heath APRN.CNP - 03/01/2022 3:32 PM EDT Ordered Cher Heath APRN.CNP * Telephone Encounter - Vicki Stark RN - 02/24/2022 2:51 PM EDT Patient calls in to request an order for mammogram be placed. [place] [facility] pending per previous orders. Please call [phone] to schedule was order placed. Also patient is requesting provider office to fill out [facility] form for Diabetic test strips. [employer] form to office this afternoon. Vicki Stark RN documented in this encounterBarberton [facility] Hospital08-29-2022 History of Present illness Narrative* Sheri Hutchins MD - 01/06/2022 10:50 AM EDT This note was created using NoteWriter. Subjective Chaparrita Barajas is a 66 year old female. Patient presents with: F/U 6 months SUBJECTIVE: Chaparrita Barajas is a 66 year old year old lady here today for 6 month follow up appointment for review of medical conditions. Reviewed that had DVT provoked in the past--OCP once and surgeries (6). None since they fountain preventive measures. Stays hydrated--just drinks water and occasionally iced vanilla coffee that dilutes with milk and drinks over course of the day. Had episode of lip swelling night before went to ER. Noprior episodes. ER providers told her that if happened again to let PCP know to change from lisinopril. PAST MEDICAL HISTORY Diagnosis Date Acute gastritis without mention of hemorrhage Chronic airway obstruction, not elsewhere classified 08/29/2014 Depressive disorder, not elsewhere classified Dysmetabolic syndrome X 01/08/2005 Glucose intolerance low HDL Elevated LDL Obesity Esophageal reflux Esophageal reflux Generalized osteoarthrosis, unspecified site Gout Migraine without aura Mixed hyperlipidemia Myalgia and myositis, unspecified Nausea Obesity, unspecified Partially edentulous maxilla has upper denture Phlebitis and thrombophlebitis of unspecified site 01/08/2005 Hx of DVT associated w/ OCP 10/1994, rt leg fracture 1976 Takotsubo cardiomyopathy Thoracic or lumbosacral neuritis or radiculitis, unspecified Unspecified disorder of kidney and ureter Unspecified essential hypertension 01/08/2005 VT (ventricular tachycardia) (HCC) 01/09/2016 Current Outpatient Medications Medication Sig venlafaxine (EFFEXOR) 75 mg tablet Take one(1) tablet twice daily as directed. venlafaxine (EFFEXOR) 75 mg tablet Take one(1) tablet twice daily as directed. metFORMIN ER (GLUCOPHAGE XR) 500 mg 24 hr tablet Take 2 tablets by mouth daily with breakfast. lisinopril (ZESTRIL, PRINIVIL) 20 mg tablet Take 1 tablet by mouth once daily. carvedilol (COREG) 12.5 mg tablet Take 1 tablet by mouth twice daily. cephALEXin (KEFLEX) 250 mg capsule Take 1 capsule by mouth once daily. rosuvastatin (CRESTOR) 5 mg tablet Take 1 tablet by mouth once daily. pantoprazole DR (PROTONIX) 40 mg tablet Take 1 tablet by mouth once daily. blood sugar diagnostic (BLOOD GLUCOSE TEST) test strip Test blood sugar(s) one time daily. Dx: Type2 DM - Controlled E11.9 Insulin: No Cranberry 500 mg cap Take 1 capsule by mouth twice daily. oxyCODONE ER (OXYCONTIN) 10 mg 12 hr tablet Take 10 mg by mouth every 12 hours. morphine IR 15 mg tablet Take 15 mg by mouth twice daily. L. acidophilus-L. rhamnosus (PROBIOTIC) 15 billion cell cap Take 1 scoop by mouth once daily. therapeutic multivitamin (THERA VITAMIN) tablet Take 1 tablet by mouth once daily. Vit X-Ghzals-Cglgwf-Grape (TART KEEN) 19-088-36-75-20 mg cap Take by mouth. CALCIUM CARBONATE/VITAMIN D2 (CALCIUM + VITAMIN D ORAL) Take by mouth once daily. Gummies, calcium 1000 mg and vit d 1600 IU aspirin(ADULT ASPIRIN EC LOW STRENGTH 81 MG TAB, DELAYED RELEASE) Take by mouth twice daily. No current facility-administered medications for this visit. Review of Systems Objective BP 122/70 Pulse 66 Wt 88.5 kg (195 lb) SpO2 96% BMI 35.67 kg/m Last 5 Encounter Wt Readings: Date: Wt: 01/06/2022 88.5 kg (195 lb) 11/05/2021 91.6 kg (202 lb) 05/24/2021 92.4 kg (203 lb 12.8 oz) 12/17/2020 96.2 kg (212 lb) 09/07/2020 100.2 kg (221 lb) No waist measurement recorded Estimated body mass index is 35.67 kg/m as calculated from the following: Height as of 12/20/18: 157.5 cm (5' 2). Weight as of this encounter: 88.5 kg (195 lb). Last 5 Encounter BP Readings: Date: BP: 01/06/2022 122/70 11/05/2021 128/74 05/24/2021 126/78 12/17/2020 128/82 09/07/2020 132/78 Physical Exam Constitutional: Appearance: Normal appearance. HENT: Head: Normocephalic. Eyes: Conjunctiva/sclera: Conjunctivae normal. Cardiovascular: Rate and Rhythm: Normal rate and regular rhythm. Heart sounds: Normal heart sounds. Pulmonary: Effort: Pulmonary effort is normal. Breath sounds: Normal breath sounds. Skin: General: Skin is warm and dry. Comments: No redness noted upper inner left arm but firm area from infection noted. States is getting a little softer. Neurological: General: No focal deficit present. Mental Status: She is alert and oriented to person, place, and time. Psychiatric: Mood and Affect: Mood normal. Behavior: Behavior normal. Thought Content: Thought content normal. Judgment: Judgment normal. Feet:Shoes and socks removed, normal distal pulses, sensitive to 10 gm monofilament, and a few hammertoes noted. Component Latest Ref Rng & Units 11/05/2021 Protein, Total 6.3 - 8.0 g/dL 6.8 Albumin 3.9 - 4.9 g/dL 4.0 Calcium 8.5 - 10.2 mg/dL 9.5 Bilirubin, Total 0.2 - 1.3 mg/dL 0.3 Alkaline Phosphatase 34 - 123 U/L 85 AST 13 - 35 U/L 20 ALT 7 - 38 U/L 15 Glucose 74 - 99 mg/dL 135 (H) BUN 7 - 21 mg/dL 11 Creatinine 0.58 - 0.96 mg/dL 0.91 Sodium 136 - 144 mmol/L 140 Potassium 3.7 - 5.1 mmol/L 4.6 Chloride 97 - 105 mmol/L 100 CO2 22 - 30 mmol/L 24 Anion Gap 9 - 18 mmol/L 16 eGFR >=60 mL/min/1.73m 69 WBC 3.70 - 11.00 k/uL 6.54 RBC 3.90 - 5.20 m/uL 4.32 Hemoglobin 11.5 - 15.5 g/dL 13.0 Hematocrit 36.0 - 46.0 % 41.1 MCV 80.0 - 100.0 fL 95.1 MCH 26.0 - 34.0 pg 30.1 MCHC 30.5 - 36.0 g/dL 31.6 RDW-CV 11.5 - 15.0 % 12.9 Platelet Count 150 - 400 k/uL 330 MPV 9.0 - 12.7 fL 10.0 Absolute nRBC <0.01 k/uL <0.01 Hemoglobin A1C 4.3 - 5.6 % 6.6 (H) Estimated Average Glucose mg/dL 143 Magnesium 1.7 - 2.3 mg/dL 2.0 Uric Acid 2.5 - 6.6 mg/dL 6.5 Assessment and PlanASSESSMENT/PLAN: 1. Cellulitis of left upper extremity - ICD9: 682.3, ICD10: L03.114 (primary diagnosis) - Continue treatment with Cephalaxin (Keflex) 2. Controlled type 2 diabetes mellitus without complication, without long-term current use of insulin (HCC) - ICD9: 250.00, ICD10: E11.9 Controlled. - Continue current medications - Encouraged regular aerobic exercise and weight loss - Needs to keep working on diet and exercise with lifestyle changes for effective weight loss as well as control of DM, and control of BP and lipids. 3. Essential hypertension - ICD9: 401.9, ICD10: I10 - good control - Continue current medication(s) - Recommended regular aerobic exercise. - Recommend home blood pressure monitoring, to bring results in on next visit - Goal of BP <130/80 4. Class 2 obesity due to excess calories with body mass index (BMI) of 36.0 to 36.9 in adult, unspecified whether serious comorbidity present - ICD9: 278.00, V85.36, ICD10: E66.09, Z68.36 Weight decreasing - Behavioral intervention Sheri Hutchins MD documented in this encounterBarberton [facility] Hospital08-26-2022 Hospital Discharge instructions Additional Instructions This is either cellulitis skin infection of your arm which we will treat with your home antibiotic Keflex but you need to take it 4 times a day for 10 days. I have ordered an outpatient ultrasound which will be done tomorrow. If they do not call you by 9:30 in the morning call the emergency department and they will connect you with the vascular lab to make sure he gets done tomorrow. If this turns out to be a blood clot you can go back to your normal once a day dose of the Keflex and we will not treat this as an infection. However you will need to be started on Eliquis. We gave you a dose of Eliquis tonight.[facility] Work Phone: [phone]) 152-173808-23-2022 Miscellaneous Notes* Telephone Encounter - Sheri Hutchins MD - 12/31/2021 1:13 PM EDT Okayed * Telephone Encounter - Saumya Syed Pss - 12/31/2021 11:48 AM EDT Patient has been identified by name and date of : Yes Requested Prescriptions Pending Prescriptions Disp Refills venlafaxine (EFFEXOR) 75 mg tablet 60 tablet 5 Sig: Take one(1) tablet twice daily as directed. RX INSTRUCTIONS: Patient is no longer using mail order Pharmacy, she wants monthly with refills sent to [facility]. Please delete the duplicate copy made in the system. Please send today, out tomorrow. Patient aware RX will be sent to pharmacy. Saumya Syed [facility] documented in this encounterBarberton Citizens Hospital07-21-2022 Miscellaneous Notes* Telephone Encounter - Marianna Finnegan APRN.CNS - 11/28/2021 4:31 PM EDT rx sent, to discuss at upcoming visit. * Telephone Encounter - Vicki Stark RN - 11/28/2021 3:06 PM EDT Patient calls to ask if provider would be willing to send a prescription to [facility] for adifferent anti-depressant than Effexor XR 75 mg twice daily. Patient reports that the current cost is $117/mo (patient currently getting 90 day supply) and she can't afford that anymore. Patient reports she has a 4 day supply left of Effexor XR. Next appointment is 12/23/2021. Pended short supply ofEffexor to get through until appointment with Dr. Hutchins to discuss new medication. Please review and advise, Vicki Stark, ROSETTE documented in this encounterBarberton Citizens Hospital06-28-2022 History of Present illness Narrative* Sheri Hutchins MD - 11/05/2021 2:46 PM EDT This note was created using Foremostter. Subjective Chaparrita Barajas is a 66 year old female. Patient presents with: Follow Up SUBJECTIVE: Chaparrita Barajas is a 66 year old year old lady here today for follow up appointment for review of medical conditions. Reviewed that had COVID beginning of the month. Just the cough and throat clearing. Annoying, No SOB or FOUNTAIN. Was really bad with a lot of phlegm and fever when had acute COVID. Was tired before and is tired all the time. Brain fog. Discussed her arthritis. Has had OA and treated with joint replacements including [facility] joint for thumb on right. Effexor since 1984 at same dose. Seems not as effective. More depressed lately. Just wants to sit in chair and watch TV. Granddaughter wants her to go swimming. Saw Dr. Greene for derm Noted spot on nose. Plans to see Dr. Beau Aaron in town. PAST MEDICAL HISTORY Diagnosis Date Acute gastritis without mention of hemorrhage Chronic airway obstruction, not elsewhere classified 08/29/2014 Depressive disorder, not elsewhere classified Dysmetabolic syndrome X 01/08/2005 Glucose intolerance low HDL Elevated LDL Obesity Esophageal reflux Esophageal reflux Generalized osteoarthrosis, unspecified site Gout Migraine without aura Mixed hyperlipidemia Myalgia and myositis, unspecified Nausea Obesity, unspecified Partially edentulous maxilla has upper denture Phlebitis and thrombophlebitis of unspecified site 01/08/2005 Hx of DVT associated w/ OCP 10/1994, rt leg fracture 1976 Takotsubo cardiomyopathy Thoracic or lumbosacral neuritis or radiculitis, unspecified Unspecified disorder of kidney and ureter Unspecified essential hypertension 01/08/2005 VT (ventricular tachycardia) (HCC) 01/09/2016 Current Outpatient Medications Medication Sig lisinopril (ZESTRIL, PRINIVIL) 20 mg tablet Take 1 tablet by mouth once daily. venlafaxine (EFFEXOR) 75 mg tablet Take one(1) tablet twice daily as directed. carvedilol (COREG) 12.5 mg tablet Take 1 tablet by mouth twice daily. cephALEXin (KEFLEX) 250 mg capsule Take 1 capsule by mouth once daily. rosuvastatin (CRESTOR) 5 mg tablet Take 1 tablet by mouth once daily. metFORMIN ER (GLUCOPHAGE XR) 500 mg 24 hr tablet Take 1 tablet by mouth daily with breakfast. pantoprazole DR (PROTONIX) 40 mg tablet Take 1 tablet by mouth once daily. Cranberry 500 mg cap Take 1 capsule by mouth twice daily. oxyCODONE ER (OXYCONTIN) 10 mg 12 hr tablet Take 10 mg by mouth every 12 hours. morphine IR 15 mg tablet Take 15 mg by mouth twice daily. L. acidophilus-L. rhamnosus (PROBIOTIC) 15 billion cell cap Take 1 scoop by mouth once daily. therapeutic multivitamin (THERA VITAMIN) tablet Take 1 tablet by mouth once daily. Vit W-Zvfcht-Rjecey-Grape (TART KEEN) 73-657-10-75-20 mg cap Take by mouth. CALCIUM CARBONATE/VITAMIN D2 (CALCIUM + VITAMIN D ORAL) Take by mouth once daily. Gummies, calcium 1000 mg and vit d 1600 IU aspirin(ADULT ASPIRIN EC LOW STRENGTH 81 MG TAB, DELAYED RELEASE) Take by mouth twice daily. blood sugar diagnostic (BLOOD GLUCOSE TEST) test strip Test blood sugar(s) one time daily. Dx: Type2 DM - Controlled E11.9 Insulin: No No current facility-administered medications for this visit. Review of Systems Objective BP 128/74 Pulse 74 Wt 91.6 kg (202 lb) SpO2 95% BMI 36.95 kg/m Last 5 Encounter Wt Readings: Date: Wt: 11/05/2021 91.6 kg (202 lb) 05/24/2021 92.4 kg (203 lb 12.8 oz) 12/17/2020 96.2 kg (212 lb) 09/07/2020 100.2 kg (221 lb) 05/20/2019 91.6 kg (202 lb) No waist measurement recorded Estimated body mass index is 36.95 kg/m as calculated from the following: Height as of 12/20/18: 157.5 cm (5' 2). Weight as of this encounter: 91.6 kg (202 lb). Last 5 Encounter BP Readings: Date: BP: 11/05/2021 128/74 05/24/2021 126/78 12/17/2020 128/82 09/07/2020 132/78 05/20/2019 130/82 Physical Exam Constitutional: Appearance: Normal appearance. HENT: Head: Normocephalic. Eyes: Conjunctiva/sclera: Conjunctivae normal. Cardiovascular: Rate and Rhythm: Normal rate and regular rhythm. Heart sounds: Normal heart sounds. Pulmonary: Effort: Pulmonary effort is normal. Breath sounds: Normal breath sounds. Skin: General: Skin is warm and dry. Neurological: General: No focal deficit present. Mental Status: She is alert and oriented to person, place, and time. Psychiatric: Mood and Affect: Mood normal. Behavior: Behavior normal. Thought Content: Thought content normal. Judgment: Judgment normal. Labs pending. Hemoglobin A1C (%) Date Value 05/16/2021 6.4 08/27/2020 7.0 12/05/2019 6.9 05/18/2019 6.2 12/20/2018 6.3 Assessment and Plan ASSESSMENT/PLAN: 1. Controlled type 2 diabetes mellitus without complication, without long-term current use of insulin (HCC) - ICD9: 250.00, ICD10: E11.9 (primary diagnosis) Controlled. - Continue current medications - Encouraged regular aerobic exercise and weight loss - COMP METABOLIC PANEL - HGB A1C - ALBUMIN/CREAT RATIO RND UR 2. Essential hypertension - ICD9: 401.9, ICD10: I10 - good control - Continue current medication(s) - Recommended regular aerobic exercise. - Recommend home blood pressure monitoring, to bring results in on next visit - Goal of BP <130/80 - COMP METABOLIC PANEL - CBC 3. Mixed hyperlipidemia - ICD9: 272.2, ICD10: E78.2 - to be determined upon return of lab results - Continue current medication. - Discussed the benefits of regular aerobic exercise and weight loss. - Encouraged following a low carbohydrate, healthy oil intake diet. - LIPID PANEL BASIC 4. Recurrent major depressive disorder, in partial remission (HCC) - ICD9: 296.35, ICD10: F33.41 Depression not as well controlled on Effexor--noted has been on same dose since 1984. Work on regular exercise and sleep hygiene. Consider med change or addition of med. Consider counseling or consult to psychiatric ALEXANDREA. Emotional support given. Noted stressors. 5. Class 2 obesity due to excess calories with body mass index (BMI) of 36.0 to 36.9 in adult, unspecified whether serious comorbidity present - ICD9: 278.00, V85.36, ICD10: E66.09, Z68.36 Weight decreasing since last year but appears to be plateauing. - Behavioral intervention 6. Encounter for long-term current use of medication - ICD9: V58.69, ICD10: Z79.899 Lbas ordered Sheri Hutchins MD documented in this encounterBarberton [facility] Hospital06-28-2022 History of Present illness Narrative* Sheri Hutchins MD - 11/05/2021 12:14 PM EDT PSR passed along message that patient in lab and needed orders Filed documented in this encounterBarberton Citizens Hospital06-07-2022 Miscellaneous Notes* Telephone Encounter - Chaparrita Castillo LPN - 10/15/2021 4:20 PM EDT Patient notified of providers message and verbalized understanding. Patient declines visit at this time * Telephone Encounter - Marianna Finnegan APRN.CNS - 10/15/2021 3:53 PM EDT Offer visit if would like to be seen. If not close note. Should follow usual precautions, continue with supportive care. * Telephone Encounter - Arabella Britton RN - 10/14/2021 4:09 PM EDT Patient calls and states that she tested positive for Covid via home test. Patient started having symptoms of Covid on Thursday10/09/2021. Patient calling and asking about antiviral treatment. Patient states that her symptoms have been lessening. Patient aware that treatment needs to be given within 5 days. Patient advised to continue to treat Covid with over the counter medication and to go toER for shortness of breath or worsening symptoms. Patient voiced understanding. Please review and advise, Arabella Britton RN documented in this encounterBarberton Citizens Hospital01-19-2022 Hospital Discharge instructions Patient Education 05/29/2021 07:08:07 5 - [facility] Post-op Instruction 12/2016 ([id number]) [facility] Post-operative Instructions PLEASE FOLLOW [facility] POST-OP INSTRUCTIONS GIVEN WATCH FOR SIGNS OF INFECTION: call the office ([phone]) if experencing any of the following: (Usually appears 36-48 hours after surgery) Increased temperature (101 degrees Fahrenheit or higher) Redness or swelling Increased uncontrolled pain Foul odor or drainage Calf discomfort Significant swelling Or if having any chest pain, shortness of breath, or difficulty breathing or swallowing call the office or go the nearest Emergency Room. If you have any questions, please call your doctor at the number listed on your follow up instructions. Form: 338A ([id number]) R: 09/14 Follow Up Care 04/12/2021 13:11:17 With:[facility] Address: [address] [place] [phone]- [phone] When:06/10/2021 15:30:00 Comments:This is your first physical therapy appointment. Follow-up as scheduled. With:JELLY HENDRICKS Address: [address] [place] [address] [address] [facility], [place] [address]- [phone] Business (1) When:06/10/2021 14:00:00 [facility] 04-30-2021 History of Past illness Narrative* Problem Noted Date Resolved Date Acute CHF (congestive heart failure) 09/07/2020 12/13/2020 Takotsubo syndrome 12/24/2016 12/13/2020 Stage 3 chronic kidney disease 12/24/2016 0 12/13/2020 CKD (chronic kidney disease) 08/23/2016 VT (ventricular tachycardia) 01/09/2016 Acute gastritis without mention of hemorrhage 11/28/2015 Urinary frequency 08/07/2008 09/08/2012 Pain in limb 02/18/2008 11/28/2015 Dysmetabolic syndrome X 01/08/2005 08/09/19 17 Overview: Glucose intolerance low HDL Elevated LDL Obesity Phlebitis and thrombophlebitis of unspecified si te 01/08/2005 04/27/2020 Overview: Hx of DVT associated w/ OCP 10/1994, rt leg fracture 1977 Depressive disorder, not elsewhere classified 09/08/2012 Nausea 11/28/2015 documented as of this encounter (statuses as of 10/15/2021) [facility] of Past illness Narrative* Problem Noted Date Resolved Date Acute CHF (congestive heart failure) 09/07/2020 12/13/2020 Takotsubo syndrome 12/24/2016 12/13/2020 Stage 3 chronic kidney disease 12/24/2016 0 12/13/2020 CKD (chronic kidney disease) 08/23/2016 VT (ventricular tachycardia) 01/09/2016 Acute gastritis without mention of hemorrhage 11/28/2015 Urinary frequency 08/07/2008 09/08/2012 Pain in limb 02/18/2008 11/28/2015 Dysmetabolic syndrome X 01/08/2005 08/09/19 17 Overview: Glucose intolerance low HDL Elevated LDL Obesity Phlebitis and thrombophlebitis of unspecified si te 01/08/2005 04/27/2020 Overview: Hx of DVT associated w/ OCP 10/1994, rt leg fracture 1977 Depressive disorder, not elsewhere classified 09/08/2012 Nausea 11/28/2015 documented as of this encounter (statuses as of 11/05/2021) [facility] of Past illness Narrative* Problem Noted Date Resolved Date Acute CHF (congestive heart failure) 09/07/2020 12/13/2020 Takotsubo syndrome 12/24/2016 12/13/2020 Stage 3 chronic kidney disease 12/24/2016 0 12/13/2020 CKD (chronic kidney disease) 08/23/2016 VT (ventricular tachycardia) 01/09/2016 Acute gastritis without mention of hemorrhage 11/28/2015 Urinary frequency 08/07/2008 09/08/2012 Pain in limb 02/18/2008 11/28/2015 Dysmetabolic syndrome X 01/08/2005 08/09/19 17 Overview: Glucose intolerance low HDL Elevated LDL Obesity Phlebitis and thrombophlebitis of unspecified si te 01/08/2005 04/27/2020 Overview: Hx of DVT associated w/ OCP 10/1994, rt leg fracture 1977 Depressive disorder, not elsewhere classified 09/08/2012 Nausea 11/28/2015 documented as of this encounter (statuses as of 11/28/2021) [facility] of Past illness Narrative* Problem Noted Date Resolved Date Acute CHF (congestive heart failure) 09/07/2020 12/13/2020 Takotsubo syndrome 12/24/2016 12/13/2020 Stage 3 chronic kidney disease 12/24/2016 0 12/13/2020 CKD (chronic kidney disease) 08/23/2016 VT (ventricular tachycardia) 01/09/2016 Acute gastritis without mention of hemorrhage 11/28/2015 Urinary frequency 08/07/2008 09/08/2012 Pain in limb 02/18/2008 11/28/2015 Dysmetabolic syndrome X 01/08/2005 08/09/19 17 Overview: Glucose intolerance low HDL Elevated LDL Obesity Phlebitis and thrombophlebitis of unspecified si te 01/08/2005 04/27/2020 Overview: Hx of DVT associated w/ OCP 10/1994, rt leg fracture 1977 Depressive disorder, not elsewhere classified 09/08/2012 Nausea 11/28/2015 documented as of this encounter (statuses as of 12/31/2021) [facility] of Past illness Narrative* Problem Noted Date Resolved Date Acute CHF (congestive heart failure) 09/07/2020 12/13/2020 Takotsubo syndrome 12/24/2016 12/13/2020 Stage 3 chronic kidney disease 12/24/2016 0 12/13/2020 CKD (chronic kidney disease) 08/23/2016 VT (ventricular tachycardia) 01/09/2016 Acute gastritis without mention of hemorrhage 11/28/2015 Urinary frequency 08/07/2008 09/08/2012 Pain in limb 02/18/2008 11/28/2015 Dysmetabolic syndrome X 01/08/2005 08/09/19 17 Overview: Glucose intolerance low HDL Elevated LDL Obesity Phlebitis and thrombophlebitis of unspecified si te 01/08/2005 04/27/2020 Overview: Hx of DVT associated w/ OCP 10/1994, rt leg fracture 1977 Depressive disorder, not elsewhere classified 09/08/2012 Nausea 11/28/2015 documented as of this encounter (statuses as of 01/05/2022) [facility] of Past illness Narrative* Problem Noted Date Resolved Date Acute CHF (congestive heart failure) 09/07/2020 12/13/2020 Takotsubo syndrome 12/24/2016 12/13/2020 Stage 3 chronic kidney disease 12/24/2016 0 12/13/2020 CKD (chronic kidney disease) 08/23/2016 VT (ventricular tachycardia) 01/09/2016 Acute gastritis without mention of hemorrhage 11/28/2015 Urinary frequency 08/07/2008 09/08/2012 Pain in limb 02/18/2008 11/28/2015 Dysmetabolic syndrome X 01/08/2005 08/09/19 17 Overview: Glucose intolerance low HDL Elevated LDL Obesity Phlebitis and thrombophlebitis of unspecified si te 01/08/2005 04/27/2020 Overview: Hx of DVT associated w/ OCP 10/1994, rt leg fracture 1977 Depressive disorder, not elsewhere classified 09/08/2012 Nausea 11/28/2015 documented as of this encounter (statuses as of 01/07/2022) [facility] of Past illness Narrative* Problem Noted Date Resolved Date Acute CHF (congestive heart failure) 09/07/2020 12/13/2020 Takotsubo syndrome 12/24/2016 12/13/2020 Stage 3 chronic kidney disease 12/24/2016 0 12/13/2020 CKD (chronic kidney disease) 08/23/2016 VT (ventricular tachycardia) 01/09/2016 Acute gastritis without mention of hemorrhage 11/28/2015 Urinary frequency 08/07/2008 09/08/2012 Pain in limb 02/18/2008 11/28/2015 Dysmetabolic syndrome X 01/08/2005 08/09/19 17 Overview: Glucose intolerance low HDL Elevated LDL Obesity Phlebitis and thrombophlebitis of unspecified si te 01/08/2005 04/27/2020 Overview: Hx of DVT associated w/ OCP 10/1994, rt leg fracture 1977 Depressive disorder, not elsewhere classified 09/08/2012 Nausea 11/28/2015 documented as of this encounter (statuses as of 03/06/2022) [facility]04-30-2021 History of Past illness Narrative* Problem Noted Date Resolved Date Acute CHF (congestive heart failure) 09/07/2020 12/13/2020 Takotsubo syndrome 12/24/2016 12/13/2020 Stage 3 chronic kidney disease 12/24/2016 0 12/13/2020 CKD (chronic kidney disease) 08/23/2016 VT (ventricular tachycardia) 01/09/2016 Acute gastritis without mention of hemorrhage 11/28/2015 Urinary frequency 08/07/2008 09/08/2012 Pain in limb 02/18/2008 11/28/2015 Dysmetabolic syndrome X 01/08/2005 08/09/19 17 Overview: Glucose intolerance low HDL Elevated LDL Obesity Phlebitis and thrombophlebitis of unspecified si te 01/08/2005 04/27/2020 Overview: Hx of DVT associated w/ OCP 10/1994, rt leg fracture 1977 Depressive disorder, not elsewhere classified 09/08/2012 Nausea 11/28/2015 documented as of this encounter (statuses as of 03/13/2022) [facility]04-30-2021 History of Past illness Narrative* Problem Noted Date Resolved Date Acute CHF (congestive heart failure) 09/07/2020 12/13/2020 Takotsubo syndrome 12/24/2016 12/13/2020 Stage 3 chronic kidney disease 12/24/2016 0 12/13/2020 CKD (chronic kidney disease) 08/23/2016 VT (ventricular tachycardia) 01/09/2016 Acute gastritis without mention of hemorrhage 11/28/2015 Urinary frequency 08/07/2008 09/08/2012 Pain in limb 02/18/2008 11/28/2015 Dysmetabolic syndrome X 01/08/2005 08/09/19 17 Overview: Glucose intolerance low HDL Elevated LDL Obesity Phlebitis and thrombophlebitis of unspecified si te 01/08/2005 04/27/2020 Overview: Hx of DVT associated w/ OCP 10/1994, rt leg fracture 1977 Depressive disorder, not elsewhere classified 09/08/2012 Nausea 11/28/2015 documented as of this encounter (statuses as of 04/19/2022) [address]30-2021 History of Past illness Narrative* Problem Noted Date Resolved Date Acute CHF (congestive heart failure) 09/07/2020 12/13/2020 Takotsubo syndrome 12/24/2016 12/13/2020 Stage 3 chronic kidney disease 12/24/2016 0 12/13/2020 CKD (chronic kidney disease) 08/23/2016 VT (ventricular tachycardia) 01/09/2016 Acute gastritis without mention of hemorrhage 11/28/2015 Urinary frequency 08/07/2008 09/08/2012 Pain in limb 02/18/2008 11/28/2015 Dysmetabolic syndrome X 01/08/2005 08/09/19 17 Overview: Glucose intolerance low HDL Elevated LDL Obesity Phlebitis and thrombophlebitis of unspecified si te 01/08/2005 04/27/2020 Overview: Hx of DVT associated w/ OCP 10/1994, rt leg fracture 1977 Depressive disorder, not elsewhere classified 09/08/2012 Nausea 11/28/2015 documented as of this encounter (statuses as of 06/13/2022) [facility]04-30-2021 History of Past illness Narrative* Problem Noted Date Diagnosed Date Resolved Date Acute CHF (congestive heart failure) 09/07/2020 12/13/2020 Takotsubo syndrome 12/24/2016 Stage 3 chronic kidney disease 12/24/2016 12/13/2020 CKD (chronic kidney disease) 08/23/2016 12/24/2016 VT (ventricular tachycardia) 01/09/2016 04/08/2016 Acute gastritis without mention of hemorrhage 12/05/19 09 11/28/2015 Urinary frequency 08/07/2008 09/08/2012 Pain in limb 02/18/2008 11/28/2015 Dysmetabolic syndrome X 01/08/200507/11 Overview: Glucose intolerance low HDL Elevated LDL Obesity Phlebitis and thrombophlebit is of unspecified site 01/08/2005 04/27/2020 Overview: Hx of DVT associated w/ OCP 10/1994, rt leg fracture 1977 Depressive disorder, not elsewhere classified 09/08/2012 Nausea 11/28/2015 documented as of this encounter (statuses as of 11/22/2022) [facility]04-30-2021 History of Past illness Narrative* Problem Noted Date Diagnosed Date Resolved Date Acute CHF (congestive heart failure) 09/07/2020 12/13/2020 Takotsubo syndrome 12/24/2016 1 Stage 3 chronic kidney disease 12/24/2016 12/13/2020 CKD (chronic kidney disease) 08/23/2016 12/24/2016 VT (ventricular tachycardia) 01/09/2016 04/08/2016 Acute gastritis without mention of hemorrhage 12/05/19 09 11/28/2015 Urinary frequency 08/07/2008 09/08/2012 Pain in limb 02/18/2008 11/28/2015 Dysmetabolic syndrome X 01/08/200507/11 Overview: Glucose intolerance low HDL Elevated LDL Obesity Phlebitis and thrombophlebit is of unspecified site 01/08/2005 04/27/2020 Overview: Hx of DVT associated w/ OCP 10/1994, rt leg fracture 1977 Depressive disorder, not elsewhere classified 09/08/2012 Nausea 11/28/2015 documented as of this encounter (statuses as of 11/24/2022) [facility]04-30-2021 History of Past illness Narrative* Problem Noted Date Diagnosed Date Resolved Date Acute CHF (congestive heart failure) 09/07/2020 12/13/2020 Takotsubo syndrome 12/24/2016 Stage 3 chronic kidney disease 12/24/2016 12/13/2020 CKD (chronic kidney disease) 08/23/2016 12/24/2016 VT (ventricular tachycardia) 01/09/2016 04/08/2016 Acute gastritis without mention of hemorrhage 12/05/19 09 11/28/2015 Urinary frequency 08/07/2008 09/08/2012 Pain in limb 02/18/2008 11/28/2015 Dysmetabolic syndrome X 01/08/200507/11 Overview: Glucose intolerance low HDL Elevated LDL Obesity Phlebitis and thrombophlebit is of unspecified site 01/08/2005 04/27/2020 Overview: Hx of DVT associated w/ OCP 10/1994, rt leg fracture 1977 Depressive disorder, not elsewhere classified 09/08/2012 Nausea 11/28/2015 documented as of this encounter (statuses as of 12/10/2022) [facility]04-30-2021 History of Past illness Narrative* Problem Noted Date Diagnosed Date Resolved Date Acute CHF (congestive heart failure) 09/07/2020 12/13/2020 Takotsubo syndrome 12/24/2016 Stage 3 chronic kidney disease 12/24/2016 12/13/2020 CKD (chronic kidney disease) 08/23/2016 12/24/2016 VT (ventricular tachycardia) 01/09/2016 04/08/2016 Acute gastritis without mention of hemorrhage 12/05/19 09 11/28/2015 Urinary frequency 08/07/2008 09/08/2012 Pain in limb 02/18/2008 11/28/2015 Dysmetabolic syndrome X 01/08/200507/11 Overview: Glucose intolerance low HDL Elevated LDL Obesity Phlebitis and thrombophlebit is of unspecified site 01/08/2005 04/27/2020 Overview: Hx of DVT associated w/ OCP 10/1994, rt leg fracture 1977 Depressive disorder, not elsewhere classified 09/08/2012 Nausea 11/28/2015 documented as of this encounter (statuses as of 12/30/2022) [facility]04-30-2021 History of Past illness Narrative* Problem Noted Date Diagnosed Date Resolved Date Acute CHF (congestive heart failure) 09/07/2020 12/13/2020 Takotsubo syndrome 12/24/2016 Stage 3 chronic kidney disease 12/24/2016 12/13/2020 CKD (chronic kidney disease) 08/23/2016 12/24/2016 VT (ventricular tachycardia) 01/09/2016 04/08/2016 Acute gastritis without mention of hemorrhage 12/05/19 09 11/28/2015 Urinary frequency 08/07/2008 09/08/2012 Pain in limb 02/18/2008 11/28/2015 Dysmetabolic syndrome X 01/08/200507/11 Overview: Glucose intolerance low HDL Elevated LDL Obesity Phlebitis and thrombophlebit is of unspecified site 01/08/2005 04/27/2020 Overview: Hx of DVT associated w/ OCP 10/1994, rt leg fracture 1977 Depressive disorder, not elsewhere classified 09/08/2012 Nausea 11/28/2015 documented as of this encounter (statuses as of 01/21/2023) [facility]04-30-2021 History of Past illness Narrative* Problem Noted Date Diagnosed Date Resolved Date Acute CHF (congestive heart failure) 09/07/2020 12/13/2020 Takotsubo syndrome 12/24/2016 08/05/202 1 Stage 3 chronic kidney disease 12/24/2016 12/13/2020 CKD (chronic kidney disease) 08/23/2016 12/24/2016 VT (ventricular tachycardia) 01/09/2016 04/08/2016 Acute gastritis without mention of hemorrhage 12/05/19 09 11/28/2015 Urinary frequency 08/07/2008 09/08/2012 Pain in limb 02/18/2008 11/28/2015 Dysmetabolic syndrome X 01/08/200507/11 Overview: Glucose intolerance low HDL Elevated LDL Obesity Phlebitis and thrombophlebit is of unspecified site 01/08/2005 04/27/2020 Overview: Hx of DVT associated w/ OCP 10/1994, rt leg fracture 1977 Depressive disorder, not elsewhere classified 09/08/2012 Nausea 11/28/2015 documented as of this encounter (statuses as of 03/15/2023) [facility]04-30-2021 History of Past illness Narrative* Problem Noted Date Diagnosed Date Resolved Date Acute CHF (congestive heart failure) 09/07/2020 12/13/2020 Takotsubo syndrome 12/24/2016 1 Stage 3 chronic kidney disease 12/24/2016 12/13/2020 CKD (chronic kidney disease) 08/23/2016 12/24/2016 VT (ventricular tachycardia) 01/09/2016 04/08/2016 Acute gastritis without mention of hemorrhage 12/05/19 09 11/28/2015 Urinary frequency 08/07/2008 09/08/2012 Pain in limb 02/18/2008 11/28/2015 Dysmetabolic syndrome X 01/08/200507/11 Overview: Glucose intolerance low HDL Elevated LDL Obesity Phlebitis and thrombophlebit is of unspecified site 01/08/2005 04/27/2020 Overview: Hx of DVT associated w/ OCP 10/1994, rt leg fracture 1977 Depressive disorder, not elsewhere classified 09/08/2012 Nausea 11/28/2015 documented as of this encounter (statuses as of 04/17/2023) [facility]04[facility]30[facility]2021 History of Past illness Narrative* Problem Noted Date Diagnosed Date Resolved Date Acute CHF (congestive heart failure) 09/07/2020 12/13/2020 Takotsubo syndrome 12/24/2016 1 Stage 3 chronic kidney disease 12/24/2016 12/13/2020 CKD (chronic kidney disease) 08/23/2016 12/24/2016 VT (ventricular tachycardia) 01/09/2016 04/08/2016 Acute gastritis without mention of hemorrhage 12/05/19 09 11/28/2015 Urinary frequency 08/07/2008 09/08/2012 Pain in limb 02/18/2008 11/28/2015 Dysmetabolic syndrome X 01/08/200507/11 Overview: Glucose intolerance low HDL Elevated LDL Obesity Phlebitis and thrombophlebit is of unspecified site 01/08/2005 04/27/2020 Overview: Hx of DVT associated w/ OCP 10/1994, rt leg fracture 1977 Depressive disorder, not elsewhere classified 09/08/2012 Nausea 11/28/2015 documented as of this encounter (statuses as of 04/18/2023) [facility]04[facility]2021 History of Past illness Narrative* Problem Noted Date Diagnosed Date Resolved Date Acute CHF (congestive heart failure) 09/07/2020 12/13/2020 Takotsubo syndrome 12/24/2016 1 Stage 3 chronic kidney disease 12/24/2016 12/13/2020 CKD (chronic kidney disease) 08/23/2016 12/24/2016 VT (ventricular tachycardia) 01/09/2016 04/08/2016 Acute gastritis without mention of hemorrhage 12/05/19 09 11/28/2015 Urinary frequency 08/07/2008 09/08/2012 Pain in limb 02/18/2008 11/28/2015 Dysmetabolic syndrome X 01/08/200507/11 Overview: Glucose intolerance low HDL Elevated LDL Obesity Phlebitis and thrombophlebit is of unspecified site 01/08/2005 04/27/2020 Overview: Hx of DVT associated w/ OCP 10/1994, rt leg fracture 1977 Depressive disorder, not elsewhere classified 09/08/2012 Nausea 11/28/2015 documented as of this encounter (statuses as of 04/21/2023) [facility]04[facility]30-2021 History of Past illness Narrative* Problem Noted Date Diagnosed Date Resolved Date Acute CHF (congestive heart failure) 09/07/2020 12/13/2020 Takotsubo syndrome 12/24/2016 1 Stage 3 chronic kidney disease 12/24/2016 12/13/2020 CKD (chronic kidney disease) 08/23/2016 12/24/2016 VT (ventricular tachycardia) 01/09/2016 04/08/2016 Acute gastritis without mention of hemorrhage 12/05/19 09 11/28/2015 Urinary frequency 08/07/2008 09/08/2012 Pain in limb 02/18/2008 11/28/2015 Dysmetabolic syndrome X 01/08/200507/11 Overview: Glucose intolerance low HDL Elevated LDL Obesity Phlebitis and thrombophlebit is of unspecified site 01/08/2005 04/27/2020 Overview: Hx of DVT associated w/ OCP 10/1994, rt leg fracture 1977 Depressive disorder, not elsewhere classified 09/08/2012 Nausea 11/28/2015 documented as of this encounter (statuses as of 05/01/2023) [facility]04[facility]30[facility]2021 History of Past illness Narrative* Problem Noted Date Diagnosed Date Resolved Date Acute CHF (congestive heart failure) 09/07/2020 12/13/2020 Takotsubo syndrome 12/24/2016 1 Stage 3 chronic kidney disease 12/24/2016 12/13/2020 CKD (chronic kidney disease) 08/23/2016 12/24/2016 VT (ventricular tachycardia) 01/09/2016 04/08/2016 Acute gastritis without mention of hemorrhage 12/05/19 09 11/28/2015 Urinary frequency 08/07/2008 09/08/2012 Pain in limb 02/18/2008 11/28/2015 Dysmetabolic syndrome X 01/08/200507/11 Overview: Glucose intolerance low HDL Elevated LDL Obesity Phlebitis and thrombophlebit is of unspecified site 01/08/2005 04/27/2020 Overview: Hx of DVT associated w/ OCP 10/1994, rt leg fracture 1977 Depressive disorder, not elsewhere classified 09/08/2012 Nausea 11/28/2015 documented as of this encounter (statuses as of 06/07/2023) [facility]04[facility]30[facility]2021 History of Past illness Narrative* Problem Noted Date Diagnosed Date Resolved Date Acute CHF (congestive heart failure) 09/07/2020 12/13/2020 Takotsubo syndrome 12/24/2016 Stage 3 chronic kidney disease 12/24/2016 12/13/2020 CKD (chronic kidney disease) 08/23/2016 12/24/2016 VT (ventricular tachycardia) 01/09/2016 04/08/2016 Acute gastritis without mention of hemorrhage 12/05/19 09 11/28/2015 Urinary frequency 08/07/2008 09/08/2012 Pain in limb 02/18/2008 11/28/2015 Dysmetabolic syndrome X 01/08/200507/11 Overview: Glucose intolerance low HDL Elevated LDL Obesity Phlebitis and thrombophlebit is of unspecified site 01/08/2005 04/27/2020 Overview: Hx of DVT associated w/ OCP 10/1994, rt leg fracture 1977 Depressive disorder, not elsewhere classified 09/08/2012 Nausea 11/28/2015 documented as of this encounter (statuses as of 06/12/2023) [facility] Evaluation note* Diagnosis Controlled type 2 diabetes mellitus without complication, without long-term current use of insulin (HCC)- Primary Essential hypertension Unspecified essential hypertension Hyperuricemia Other abnormal blood chemistry Encounter for long-term current use of medication [facility] [place] [facility]* Diagnosis Reactive depression Dysthymic disorder [facility] [place] [facility]* Diagnosis Reactive depression Dysthymic disorder [facility] [place] noteNo assessment information availableWWooster [facility] Work Phone: Evaluation note* Diagnosis Controlled type 2 diabetes mellitus without complication, without long-term current use of insulin (HCC)- Primary Essential hypertension Unspecified essential hypertension Mixed hyperlipidemia Recurrent major depressive disorder, in partial remission (HCC) Class 2 obesity due to excess calories with body mass index (BMI) of 36.0 to 36.9 in adult, unspecified whether serious comorbidity present Encounter for long-term current use of medication [facility] Cellulitis of left upper extremity- Primary Cellulitis and abscess of upper arm and forearm Controlled type 2 diabetes mellitus without complication, without long-term current use of insulin (HCC) Essential hypertension Unspecified essential hypertension Class 2 obesity due to excess calories with body mass index (BMI) of 36.0 to 36.9 in adult, unspecified whether serious comorbidity present [facility] Diagnosis Screening mammogram for breast cancer- Primary [facility] Diagnosis Essential hypertension Unspecified essential hypertension [facility] Diagnosis GERD without esophagitis Esophageal reflux Other specified disorders of urethra Disorder of kidney and ureter Unspecified disorder of kidney and ureter [facility] Diagnosis Colon cancer screening Special screening for malignant neoplasms, colon [facility] Diagnosis Controlled type 2 diabetes mellitus without complication, without long-term current use of insulin (HCC)- Primary Essential hypertension Unspecified essential hypertension Mixed hyperlipidemia Hyperuricemia Other abnormal blood chemistry Colon cancer screening Special screening for malignant neoplasms, colon Recurrent major depressive disorder, in partial remission (HCC) Class 1 obesity due to excess calories with body mass index (BMI) of 34.0 to 34.9 in adult, unspecified whether serious comorbidity present [facility] Diagnosis Reactive depression Dysthymic disorder [facility] Diagnosis Essential hypertension Unspecified essential hypertension [facility] Diagnosis Screening mammogram for breast cancer [facility] Diagnosis Screening mammogram for breast cancer- Primary [facility] Diagnosis Urinary frequency- Primary Bronchitis Bronchitis, not specified as acute or chronic Vaginal itching Pruritus of genital organs [facility] Diagnosis Reactive depression Dysthymic disorder Essential hypertension Unspecified essential hypertension Other specified disorders of urethra Disorder of kidney and ureter Unspecified disorder of kidney and ureter GERD without esophagitis Esophageal reflux [facility] [place] [facility]* Diagnosis Acute cough- Primary Lower resp. tract infection Other diseases of respiratory system, not elsewhere classified [facility] [place] [facility]* Diagnosis Chronic cough Cough History of bronchitis Personal history of other diseases of respiratory system [facility] [place] [facility]* Diagnosis Chronic cough Cough History of bronchitis Personal history of other diseases of respiratory system [facility] [place] [facility]* Diagnosis Controlled type 2 diabetes mellitus without complication, without long-term current use of insulin (HCC)- Primary Urinary incontinence without sensory awareness Incontinence without sensory awareness Mixed hyperlipidemia Essential hypertension Unspecified essential hypertension Reactive depression Dysthymic disorder Urinary urgency Urgency of urination Dysuria Chronic cough Cough History of bronchitis Personal history of other diseases of respiratory system Encounter for screening mammogram for breast cancer Encounter for long-term current use of medication Chronic cough Cough Chronic cough Cough History of bronchitis Personal history of other diseases of respiratory system Chronic cough Cough History of bronchitis Personal history of other diseases of respiratory system [facility] [place] [facility]* Diagnosis Chronic cough Cough [facility] [place] [facility]* Diagnosis Wheezing [facility] [place] [facility]* Diagnosis Reactive depression Dysthymic disorder [facility] [place] [facility]* Diagnosis Acute deep vein thrombosis (DVT) of other specified vein of left lower extremity (HCC)- Primary 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 Long-term (current) use of anticoagulants [facility] [place] [facility]* Diagnosis Acute deep vein thrombosis (DVT) of other specified vein of left lower extremity (HCC)- Primary Left leg swelling Swelling of limb Gross hematuria Anemia, unspecified type Recurrent acute deep vein thrombosis (DVT) of lower extremity, unspecified laterality (HCC) Controlled type 2 diabetes mellitus without complication, without long-term current use of insulin (HCC) Presence of IVC filter Other postprocedural status Acute cystitis with hematuria Acute cystitis [facility] Diagnosis Frequent falls- Primary Personal history of fall Gait instability Abnormality of gait Contusion of left knee, initial encounter S/P total knee replacement, left History of recurrent deep vein thrombosis (DVT) [facility] this [facility] [place] [facility]* Diagnosis Essential hypertension Unspecified essential hypertension Other specified disorders of urethra Disorder of kidney and ureter Unspecified disorder of kidney and ureter GERD without esophagitis Esophageal reflux [facility] [place] [facility]* Diagnosis Frequent falls- Primary Personal history of fall Gait instability Abnormality of gait [facility] [place] [facility]* Diagnosis Encounter for screening mammogram for breast cancer documented [facility] [place] [facility]* Diagnosis Frequent falls- Primary Personal history of fall Gait instability Abnormality of gait [facility] [place] [facility]* Diagnosis Gait instability- Primary Abnormality of gait Frequent falls Personal history of fall [facility] [place] [facility]* Diagnosis Dry eye syndrome of both eyes- Primary [facility] [place] [facility]* Diagnosis Acute laryngitis- Primary Acute laryngitis, without mention of obstruction Viral illness Unspecified viral infection, in conditions classified elsewhere and of unspecified site [facility] [place] [facility]* Diagnosis Sinobronchitis- Primary Unspecified sinusitis (chronic) documented [facility] [place] [facility]* Diagnosis Controlled type 2 diabetes mellitus without complication, without long-term current use of insulin (HCC)- Primary Recurrent deep vein thrombosis (DVT) (HCC) Essential hypertension Unspecified essential hypertension Other specified disorders of urethra Disorder of kidney and ureter Unspecified disorder of kidney and ureter GERD without esophagitis Esophageal reflux Reactive depression Dysthymic disorder Class 2 obesity due to excess calories with body mass index (BMI) of 35.0 to 35.9 in adult, unspecified whether serious comorbidity present Psoriasis Other psoriasis Mixed hyperlipidemia USP (current) use of anticoagulants Long-term (current) use of anticoagulants Encounter for therapeutic drug monitoring documented in this encounter [facility] course Narrative No data available for this section [facility] Hospital Discharge instructions No data available for this section [facility] Reason for referral (narrative)* Diagnostic Procedure Only (Routine) - Authorized Specialty Diagnoses / Procedures Referred By Devinac t Referred To Contact [facility] Diagnoses Screening mammogram for breast cancer Procedures GENEVA SCREENING W SABAS SCREENING DIGITAL BREAST TOMOSYNTHESIS BI SCREENING MAMMOGRAPHY BI 2-VIEW BREAST INC CAD Cher Heath HISTORY CARD CLERK.REPAIR TECHNICIAN [address] [place] [address] [facility] [address] [place] [address] Referral ID Status Reason Start Date Expiration Date Visits Requested Visits Authorized [id number] Authorized Auto-Generat ed Referral 03/26/2023 1 1 [facility] for referral (narrative)* Diagnostic Procedure Only (Routine) - Closed Specialty Diagnoses / Procedures Referred By Juanita t Referred To Contact [facility] Diagnoses Screening mammogram for breast cancer Procedures GENEVA SCREENING W SABAS SCREENING DIGITAL BREAST TOMOSYNTHESIS BI SCREENING MAMMOGRAPHY BI 2-VIEW BREAST INC Cher Aguilar HISTORY CARD CLERK.REPAIR TECHNICIAN [address] [place] [address] [facility] [address] [place] [address] Referral ID Status Reason Start Date Expiration Date V isits Requested Visits Authorized [id number] Closed Auto-Generate d Referral 03/01/2022 03/26/2023 1 1 [facility] for referral (narrative)* Diagnostic Procedure Only (Routine) - Pending Review Specialty Diagnoses / Procedures Referred By Juanita t Referred To Contact [facility] Diagnoses Screening mammogram for breast cancer Procedures GENEVA SCREENING W SABAS SCREENING DIGITAL BREAST TOMOSYNTHESIS BI SCREENING MAMMOGRAPHY BI 2-VIEW BREAST INC CAD Marianna Finnegan, HISTORY CARD CLERK.PEDIATRIC CLINICAL NURSE SPECIALIST [address] [place] [address] [facility] [address] [place] [address] Referral ID Status Reason Start Date Expiration Date Visits Requested Visits Authorized [id number] Pending Review Auto-Generat ed Referral 04/16/2023 05/14/2024 1 1 [facility] for referral (narrative)* Diagnostic Procedure Only (Routine) - Authorized Specialty Diagnoses / Procedures Referred By Juanita boyle Referred To Contact [facility] Diagnoses Encounter for screening mammogram for breast cancer Procedures GENEVA SCREENING W SABSA SCREENING DIGITAL BREAST TOMOSYNTHESIS BI SCREENING MAMMOGRAPHY BI 2-VIEW BREAST INC CAD Sheri Hutchins MD [address] [place] [address] [facility] [address] [place] [id number] Referral ID Status Reason Start Date Expiration Date Visits Requested Visits Authorized [id number] Authorized Auto-Generat ed Referral 05/22/2024 12/18/2024 1 1 * Outpatient Procedure (Routine) - Closed Specialty Diagnoses / Procedures Referred By Juanita boyle Referred To Contact [facility] Diagnoses Chronic cough History of bronchitis Procedures NITRIC OXIDE, EXHALED NITRIC OXIDE GAS DETERMINATION Sheri Hutchins MD [address] [place] [address] [facility] [address] [place] [address] Referral ID Status Reason Start Date Expiration Date V isits Requested Visits Authorized [id number] Closed Auto-Generate d Referral 11/19/2023 12/18/2024 1 1 * Outpatient Procedure (Routine) - Closed Specialty Diagnoses / Procedures Referred By Juanita boyle Referred To Contact [facility] Diagnoses Chronic cough History of bronchitis Procedures SPIROMETRY - BASELINE AND POST DILATOR BRNCDILAT RSPSE SPMTRY PRE&POST-BRNCDILAT ADMSheri Vaughan MD [address] [place] [address] [facility] [address] [place] [address] Referral ID Status Reason Start Date Expiration Date V isits Requested Visits Authorized [id number] Closed Auto-Generate d Referral 11/19/2023 12/18/2024 1 1 [facility] for referral (narrative)No reason for referral information [facility] Work Phone: Reason for visit Narrative* Diagnostic Procedure Only (Routine) - Closed Specialty Diagnoses / Procedures Referred By Juanita t Referred To Contact [facility] Diagnoses Screening mammogram for breast cancer Procedures GENEVA SCREENING W SABAS SCREENING DIGITAL BREAST TOMOSYNTHESIS BI SCREENING MAMMOGRAPHY BI 2-VIEW BREAST INC CAD Older, Cher, HISTORY CARD 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.REPAIR 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 [address] [place] [address] [facility] [address] [place] [address] Referral ID Status Reason Start Date Expiration Date V isits Requested Visits Authorized [id number] Closed Auto-Generate d Referral 03/01/2022 03/26/2023 1 1 [facility] for visit Narrative* Diagnostic Procedure Only (Routine) - Closed Specialty Diagnoses / Procedures Referred By Juanita boyle Referred To Contact [facility] Diagnoses Encounter for screening mammogram for breast cancer Procedures GENEVA SCREENING W SABAS SCREENING DIGITAL BREAST TOMOSYNTHESIS BI SCREENING MAMMOGRAPHY BI 2-VIEW BREAST INC CAD Sheri Hutchins MD [address] [place] [address] [facility] [address] [place] [address] Referral ID Status Reason Start Date Expiration Date V isits Requested Visits Authorized [id number] Closed Auto-Generate d Referral 05/22/2024 12/18/2024 1 1 [facility] Summary Purpose Family History No Family History Records Found Relationship Condition Age at Onset Recorded Date/T saurabh Unknown Family History?No pe rtinent history Unknown January 02, 2016 4:09pm Family History?No pe rtinent history Unknown January 02, 2016 4:09pm Relationship Condition Age at Onset Recorded Date/T saurabh grandmother Myocardial infarction Unknown grandfather Aneurysm Unknown mother Renal failure Unknown uncle Myocardial infarction Unknown Advance Directives No Advanced Directives Records Found Advance Directive Response Recorded Date/ Time Advance Directives No December 16 016 3:25pm Living Will No January 03 11:15pm Power of Environmental Health And Safety Manager No January 03, 2 022 11:15pm Advance Directive Response Recorded Date/ Time Living Will No February 22 8:41pm Do you have a Healthcare Power of Environmental Health And Safety Manager? No February 23, 2024 8:41pm Advance Directives No December 16 016 3:25pm Chief Complaint and Reason for Visit Chief Complaint ARM PAIN Chief Complaint ARM PAIN PAIN IN LEFT ARM Chief Complaint Admit Date [facility] July 07, 2024 2:20pm 3-4 M FU July 29, 2024 12: 52pm MED ONC September 22, 2024 2:15p m Reason for Visit Admit Date DVT (deep venous thrombosis) July 072024 2:20pm Hematuria July 07, 2024 2:20pm S/P IVC filter July 29, 2024 12: 52pm DVT (deep venous thrombosis) July 29, 2024 12:52pm DVT (deep venous thrombosis) September 22 025 2:15pm Reason for Referral Specialty Diagnoses / Procedures Referred By Contac t Referred To Contact [facility] Diagnoses Frequent falls Gait instability Procedures CONSULT TO PHYSICAL THERAPY PHYSICAL THERAPY EVALUATION HIGH COMPLEX 45 MINS Sheri Hutchins MD [address] [place] [address] [facility] [place] [address] [place] [address] Referral ID Status Reason Start Date Expiration Date Visits Requested Visits Authorized [id number] Authorized PCP Requested Referral Auto-Generate d Referral 4 04/25/2025 99 99 Specialty Diagnoses / Procedures Referred By Contac t Referred To Contact Urology Diagnoses Gross hematuria USP current use of anticoagulant Procedures CONSULT TO UROLOGY OFFICE/OUTPATIENT NEW HIGH MDM 60 MINUTES Sheri Hutchins MD [address] [place] [address] Referral ID Status Reason Start Date Expiration Date Visits Requested Visits Authorized [id number] Authorized PCP Requested Referral 4 02/19/2025 1 1 Specialty Diagnoses / Procedures Referred By Contac t Referred To Contact [facility] Diagnoses Acute deep vein thrombosis (DVT) of other specified vein of left lower extremity (HCC) Clotting disorder (HCC) Procedures FACTOR V LEIDEN/PCR F5 COAGULATION FACTOR V ANAL LEIDEN VARIANT Jack Lawler APRN.REPAIR TECHNICIAN [address] [place] [address] [facility] [address] [place] [address] Referral ID Status Reason Start Date Expiration Date V isits Requested Visits Authorized [id number] Denied PCP Requested Referral Auto-Generated Referral Clearance Not Met -Financial Clearance Bypassed 02/16/2024 05/16/2024 1 0 Specialty Diagnoses / Procedures Referred By Contac t Referred To Contact General Surgery Diagnoses Colon cancer screening Procedures CONSULT TO GENERAL SURGERY OFFICE/OUTPATIENT [facility] 60-74 MINUTES Sheri Hutchins MD [address] [place] [id number] Referral ID Status Reason Start Date Expiration Date V isits Requested Visits Authorized [id number] Closed PCP Requested Referral 10/22/2022 10/22/2023 1 1 Additional Source Comments INFORMATION SOURCE (unrecogn ized section and content) DATE CREATED AUTHOR 06/06/2021 [facility] ([facility]) DATE CREATED AUTHOR AUTHOR'S ORGANIZ ATION 03/19/2023 [facility] DATE CREATED AUTHOR AUTHOR'S ORGANIZ ATION 10/16/2024 [facility] DATE CREATED AUTHOR AUTHOR'S ORGANIZ ATION 11/04/2024 [facility] Source Comments (unrecognize d section and content) In the event this informatio n is protected by the Federal Confidentiality of Alcohol and Drug Abuse Patient Records regulations: The Federal rules restrict any use of the information to criminally investigate or prosecute any alcohol or drug abuse patient.[facility] the event this information is protected by the Federal Confidentiality of Alcohol and Drug Abuse Patient Records regulations: The Federal rules restrict any use of the information to criminally investigate or prosecute any alcohol or drug abuse patient.[facility]In the event this information is protected by the Federal Confidentiality of Alcohol and Drug Abuse Patient Records regulations: The Federal rules restrict any use of the information to criminally investigate or prosecute any alcohol or drug abuse patient.[facility]In the event this information is protected by the Federal Confidentiality of Alcohol and Drug Abuse Patient Records regulations: The Federal rules restrict any use of the information to criminally investigate or prosecute any alcohol or drug abuse patient.[facility]In the event this information is protected by the Federal Confidentiality of Alcohol and Drug Abuse Patient Records regulations: The Federal rules restrict any use of the information to criminally investigate or prosecute any alcohol or drug abuse patient.[facility]In the event this information is protected by the Federal Confidentiality of Alcohol and Drug Abuse Patient Records regulations: The Federal rules restrict any use of the information to criminally investigate or prosecute any alcohol or drug abuse patient.[facility] the event this information is protected by the Federal Confidentiality of Alcohol and Drug Abuse Patient Records regulations: The Federal rules restrict any use of the information to criminally investigate or prosecute any alcohol or drug abuse patient.[facility] the event this information is protected by the Federal Confidentiality of Alcohol and Drug Abuse Patient Records regulations: The Federal rules restrict any use of the information to criminally investigate or prosecute any alcohol or drug abuse patient.[facility]In the event this information is protected by the Federal Confidentiality of Alcohol and Drug Abuse Patient Records regulations: The Federal rules restrict any use of the information to criminally investigate or prosecute any alcohol or drug abuse patient.[facility]In the event this information is protected by the Federal Confidentiality of Alcohol and Drug Abuse Patient Records regulations: The Federal rules restrict any use of the information to criminally investigate or prosecute any alcohol or drug abuse patient.[facility]In the event this information is protected by the Federal Confidentiality of Alcohol and Drug Abuse Patient Records regulations: The Federal rules restrict any use of the information to criminally investigate or prosecute any alcohol or drug abuse patient.[facility]In the event this information is protected by the Federal Confidentiality of Alcohol and Drug Abuse Patient Records regulations: The Federal rules restrict any use of the information to criminally investigate or prosecute any alcohol or drug abuse patient.[facility]In the event this information is protected by the Federal Confidentiality of Alcohol and Drug Abuse Patient Records regulations: The Federal rules restrict any use of the information to criminally investigate or prosecute any alcohol or drug abuse patient.[facility]In the event this information is protected by the Federal Confidentiality of Alcohol and Drug Abuse Patient Records regulations: The Federal rules restrict any use of the information to criminally investigate or prosecute any alcohol or drug abuse patient.[facility]In the event this information is protected by the Federal Confidentiality of Alcohol and Drug Abuse Patient Records regulations: The Federal rules restrict any use of the information to criminally investigate or prosecute any alcohol or drug abuse patient.[facility]In the event this information is protected by the Federal Confidentiality of Alcohol and Drug Abuse Patient Records regulations: The Federal rules restrict any use of the information to criminally investigate or prosecute any alcohol or drug abuse patient.[facility]In the event this information is protected by the Federal Confidentiality of Alcohol and Drug Abuse Patient Records regulations: The Federal rules restrict any use of the information to criminally investigate or prosecute any alcohol or drug abuse patient.[facility]In the event this information is protected by the Federal Confidentiality of Alcohol and Drug Abuse Patient Records regulations: The Federal rules restrict any use of the information to criminally investigate or prosecute any alcohol or drug abuse patient.[facility]In the event this information is protected by the Federal Confidentiality of Alcohol and Drug Abuse Patient Records regulations: The Federal rules restrict any use of the information to criminally investigate or prosecute any alcohol or drug abuse patient.[facility] HospitalIn the event this information is protected by the Federal Confidentiality of Alcohol and Drug Abuse Patient Records regulations: The Federal rules restrict any use of the information to criminally investigate or prosecute any alcohol or drug abuse patient.[facility] HospitalIn the event this information is protected by the Federal Confidentiality of Alcohol and Drug Abuse Patient Records regulations: The Federal rules restrict any use of the information to criminally investigate or prosecute any alcohol or drug abuse patient.[facility] HospitalIn the event this information is protected by the Federal Confidentiality of Alcohol and Drug Abuse Patient Records regulations: The Federal rules restrict any use of the information to criminally investigate or prosecute any alcohol or drug abuse patient.[facility] HospitalIn the event this information is protected by the Federal Confidentiality of Alcohol and Drug Abuse Patient Records regulations: The Federal rules restrict any use of the information to criminally investigate or prosecute any alcohol or drug abuse patient.[facility] HospitalIn the event this information is protected by the Federal Confidentiality of Alcohol and Drug Abuse Patient Records regulations: The Federal rules restrict any use of the information to criminally investigate or prosecute any alcohol or drug abuse patient.[facility]In the event this information is protected by the Federal Confidentiality of Alcohol and Drug Abuse Patient Records regulations: The Federal rules restrict any use of the information to criminally investigate or prosecute any alcohol or drug abuse patient.[facility]In the event this information is protected by the Federal Confidentiality of Alcohol and Drug Abuse Patient Records regulations: The Federal rules restrict any use of the information to criminally investigate or prosecute any alcohol or drug abuse patient.[facility]In the event this information is protected by the Federal Confidentiality of Alcohol and Drug Abuse Patient Records regulations: The Federal rules restrict any use of the information to criminally investigate or prosecute any alcohol or drug abuse patient.[facility] HospitalIn the event this information is protected by the Federal Confidentiality of Alcohol and Drug Abuse Patient Records regulations: The Federal rules restrict any use of the information to criminally investigate or prosecute any alcohol or drug abuse patient.[facility]In the event this information is protected by the Federal Confidentiality of Alcohol and Drug Abuse Patient Records regulations: The Federal rules restrict any use of the information to criminally investigate or prosecute any alcohol or drug abuse patient.[facility]In the event this information is protected by the Federal Confidentiality of Alcohol and Drug Abuse Patient Records regulations: The Federal rules restrict any use of the information to criminally investigate or prosecute any alcohol or drug abuse patient.[facility]In the event this information is protected by the Federal Confidentiality of Alcohol and Drug Abuse Patient Records regulations: The Federal rules restrict any use of the information to criminally investigate or prosecute any alcohol or drug abuse patient.[facility] HospitalIn the event this information is protected by the Federal Confidentiality of Alcohol and Drug Abuse Patient Records regulations: The Federal rules restrict any use of the information to criminally investigate or prosecute any alcohol or drug abuse patient.[facility]In the event this information is protected by the Federal Confidentiality of Alcohol and Drug Abuse Patient Records regulations: The Federal rules restrict any use of the information to criminally investigate or prosecute any alcohol or drug abuse patient.[facility]In the event this information is protected by the Federal Confidentiality of Alcohol and Drug Abuse Patient Records regulations: The Federal rules restrict any use of the information to criminally investigate or prosecute any alcohol or drug abuse patient.[facility]In the event this information is protected by the Federal Confidentiality of Alcohol and Drug Abuse Patient Records regulations: The Federal rules restrict any use of the information to criminally investigate or prosecute any alcohol or drug abuse patient.[facility]In the event this information is protected by the Federal Confidentiality of Alcohol and Drug Abuse Patient Records regulations: The Federal rules restrict any use of the information to criminally investigate or prosecute any alcohol or drug abuse patient.[facility]In the event this information is protected by the Federal Confidentiality of Alcohol and Drug Abuse Patient Records regulations: The Federal rules restrict any use of the information to criminally investigate or prosecute any alcohol or drug abuse patient.[facility]In the event this information is protected by the Federal Confidentiality of Alcohol and Drug Abuse Patient Records regulations: The Federal rules restrict any use of the information to criminally investigate or prosecute any alcohol or drug abuse patient.[facility]In the event this information is protected by the Federal Confidentiality of Alcohol and Drug Abuse Patient Records regulations: The Federal rules restrict any use of the information to criminally investigate or prosecute any alcohol or drug abuse patient.[facility]In the event this information is protected by the Federal Confidentiality of Alcohol and Drug Abuse Patient Records regulations: The Federal rules restrict any use of the information to criminally investigate or prosecute any alcohol or drug abuse patient.[facility]In the event this information is protected by the Federal Confidentiality of Alcohol and Drug Abuse Patient Records regulations: The Federal rules restrict any use of the information to criminally investigate or prosecute any alcohol or drug abuse patient.[facility]In the event this information is protected by the Federal Confidentiality of Alcohol and Drug Abuse Patient Records regulations: The Federal rules restrict any use of the information to criminally investigate or prosecute any alcohol or drug abuse patient.[facility] HospitalIn the event this information is protected by the Federal Confidentiality of Alcohol and Drug Abuse Patient Records regulations: The Federal rules restrict any use of the information to criminally investigate or prosecute any alcohol or drug abuse patient.[facility] HospitalIn the event this information is protected by the Federal Confidentiality of Alcohol and Drug Abuse Patient Records regulations: The Federal rules restrict any use of the information to criminally investigate or prosecute any alcohol or drug abuse patient.[facility]In the event this information is protected by the Federal Confidentiality of Alcohol and Drug Abuse Patient Records regulations: The Federal rules restrict any use of the information to criminally investigate or prosecute any alcohol or drug abuse patient.[facility]In the event this information is protected by the Federal Confidentiality of Alcohol and Drug Abuse Patient Records regulations: The Federal rules restrict any use of the information to criminally investigate or prosecute any alcohol or drug abuse patient.[facility] HospitalIn the event this information is protected by the Federal Confidentiality of Alcohol and Drug Abuse Patient Records regulations: The Federal rules restrict any use of the information to criminally investigate or prosecute any alcohol or drug abuse patient.[facility] HospitalIn the event this information is protected by the Federal Confidentiality of Alcohol and Drug Abuse Patient Records regulations: The Federal rules restrict any use of the information to criminally investigate or prosecute any alcohol or drug abuse patient.[facility] Reason for Visit (unrecogniz ed section and content) Reason Comments Patient Left Without Being Seen Specialty Diagnoses / Procedures Referred By Juanita t Referred To Contact [facility] Diagnoses Frequent falls Gait instability Procedures CONSULT TO PHYSICAL THERAPY PHYSICAL THERAPY EVALUATION HIGH COMPLEX 45 MINS Sheri Hutchins MD [address] [place] [address] [facility] [place] [address] [place] [address] Referral ID Status Reason Start Date Expiration Date Visits Requested Visits Authorized [id number] Authorized PCP Requested Referral Auto-Generate d Referral 04/25/2025 99 99 Reason Comments Physical Therapy Reason Comments Patient Update positive covid antig en test / home Reason Comments Medication Question Reason Onset Date Comments Refill Request 12/31/2021 SEE RX NOTES - [facility] Reason Comments Follow Up Reason Comments F/U 6 months Reason Comments Orders Reason Onset Date Comments Refill Request 03/13/2022 Reason Comments Refill Request Reason Comments Consult Specialty Diagnoses / Procedures Referred By Juanita boyle Referred To Contact General Surgery Diagnoses Colon cancer screening Procedures CONSULT TO GENERAL SURGERY OFFICE/OUTPATIENT NEW HIGH MDM 60-74 MINUTES Sheri Hutchins MD [address] [place] [address] Referral ID Status Reason Start Date Expiration Date V isits Requested Visits Authorized [id number] Closed PCP Requested Referral 10/22/2022 10/22/2023 1 1 Reason Comments Recheck 4 month follow up; f ell at grandson's x4 weeks ago Reason Onset Date Comments Refill Request 12/30/2022 Reason Onset Date Comments Refill Request 01/20/2023 Reason Comments Mammogram order Reason Comments Cough Cough and chest maribel estion x 1 week Reason Comments Results Reason Comments Cough Reason Comments [facility]-allergy alerts (2) Reason Comments Cough Cough x 2 weeks Reason Comments Spirometry Specialty Diagnoses / Procedures Referred By Contac t Referred To Contact [facility] Diagnoses Chronic cough History of bronchitis Procedures NITRIC OXIDE, EXHALED NITRIC OXIDE GAS DETERMINATION Sheri Hutchins MD [address] [place] [address] [address] Referral ID Status Reason Start Date Expiration Date V isits Requested Visits Authorized [id number] Closed Auto-Generate d Referral 11/19/2023 12/18/2024 1 1 Specialty Diagnoses / Procedures Referred By Contac t Referred To Contact [facility] Diagnoses Chronic cough History of bronchitis Procedures SPIROMETRY - BASELINE AND POST DILATOR BRNCDILAT RSPSE SPMTRY PRE&POST-BRNCDILAT ADMN Sheri Hutchins MD [address] [place] [id number] [address] [address] Referral ID Status Reason Start Date Expiration Date V isits Requested Visits Authorized [id number] Closed Auto-Generate d Referral 11/19/2023 12/18/2024 1 1 Reason Comments Follow Up Reason Comments Pharmacy Call Reason Comments Dizziness Reason Comments ER F/U [facility] ER for DVT in le ft leg Reason Comments Keratitis Evaluation Diabetes Reason Comments Patient Update Reason Comments Release Of Medical Records Reason Comments Hospital F/U [facility] hospital follow up Reason Comments Established Patient Frequent falls Reason Onset Date Comments Refill Request 05/16/2024 Reason Comments PT Eval Reason Onset Date Comments Refill Request 06/09/2024 Glucose test str ips-to [facility] Reason Comments Dry Eye Syndrome Follow Up Reason Comments Research [facility] IRB [id number] Reason Comments Ear Pain Right ear pain, coug h and congestion x 2 days Reason Comments Asthma express care Care Teams (unrecognized sec tion and content) Clinical Transformation Specialist Relationship Specialty Start Date End Date Sheri Hutchins MD [address] [place], [place] [address] PCP - General 03/01/02 Clinical Transformation Specialist Relationship Specialty Start Date End Date Sheri Hutchins MD [address] [place], [place] [id number] PCP - General 03/01/02 Clinical Transformation Specialist Relationship Specialty Start Date End Date Sheri Hutchins MD [address] [facility] [address] PCP - General 03/01/02 Clinical Transformation Specialist Relationship Specialty [place] [address] [place] [address], [place] [address] PCP - General 03/01/02 Clinical Transformation Specialist Relationship Specialty [place] [address] [place] [address], [place] [address] PCP - General 03/01/02 Clinical Transformation Specialist Relationship Specialty Start Date End Date Sheri Hutchins MD [address] [place] [address], [place] [address] PCP - General 03/01/02 Clinical Transformation Specialist Relationship Specialty [place] [address] [place] [address], [place] [address] PCP - General 03/01/02 Clinical Transformation Specialist Relationship Specialty Start Date End Date Sheri Hutchins MD [address] [place] [address], [place] [address] PCP - General 03/01/02 Clinical Transformation Specialist Relationship Specialty [place] [address] [place] [address], [place] [address] PCP - General 03/01/02 Clinical Transformation Specialist Relationship Specialty [place] [address] [place] [address], [place] [address] PCP - General 03/01/02 Clinical Transformation Specialist Relationship Specialty Start Date End Date Sheri Hutchins MD [address] [place] [address] PCP - General 03/01/02 Clinical Transformation Specialist Relationship Specialty Start Date End Date Sheri Hutchins MD [address] [place] [address] PCP - General 03/01/02 Clinical Transformation Specialist Relationship Specialty Start Date End Date Sheri Hutchins MD [address] [place] [address] PCP - General 03/01/02 Clinical Transformation Specialist Relationship Specialty Start Date End Date Sheri Hutchins MD [address] [place] [address] PCP - General 03/01/02 Clinical Transformation Specialist Relationship Specialty Start Date End Date Sheri Hutchins MD [address] [place] [address] PCP - General 03/01/02 Clinical Transformation Specialist Relationship Specialty Start Date End Date Sheri Hutchins MD [address] [place] [address] PCP - General 03/01/02 Clinical Transformation Specialist Relationship Specialty Start Date End Date Sheri Hutchins MD [address] [place] [address] PCP - General 03/01/02 Clinical Transformation Specialist Relationship Specialty Start Date End Date Sheri Hutchins MD [address] [place] [address] PCP - General 03/01/02 Clinical Transformation Specialist Relationship Specialty Start Date End Date Sheri Hutchins MD [address] [place] [address] PCP - General 03/01/02 Clinical Transformation Specialist Relationship Specialty Start Date End Date Sheri Hutchins MD [address] [place] [address] PCP - General 03/01/02 Clinical Transformation Specialist Relationship Specialty Start Date End Date Sheri Hutchins MD [address] [place] [address] PCP - General 03/01/02 Clinical Transformation Specialist Relationship Specialty Start Date End Date Sheri Hutchins MD [address] [place] [address] PCP - General 03/01/02 Clinical Transformation Specialist Relationship Specialty Start Date End Date Sheri Hutchins MD [address] [place] [address] PCP - General 03/01/02 Clinical Transformation Specialist Relationship Specialty Start Date End Date Sheri Hutchins MD [address] [place] [address] PCP - General 03/01/02 Clinical Transformation Specialist Relationship Specialty Start Date End Date Sheri Hutchins MD [address] [place] [address] PCP - General 03/01/02 Clinical Transformation Specialist Relationship Specialty Start Date End Date Sheri Hutchins MD [address] [place] [address] PCP - General 03/01/02 Clinical Transformation Specialist Relationship Specialty Start Date End Date Sheri Hutchins MD [address] [place] [address] PCP - General 03/01/02 Clinical Transformation Specialist Relationship Specialty Start Date End Date Sheri Hutchins MD [address] [place] [address] PCP - General 03/01/02 Clinical Transformation Specialist Relationship Specialty Start Date End Date Sheri Hutchins MD [address] [place] [address] PCP - General 03/01/02 Marianna Finnegan, HISTORY CARD CLERK.PEDIATRIC CLINICAL NURSE SPECIALIST [address] [place] [address] Rehabilitation Services Manager Internal Medicine 04/18/24 Jack Lawler HISTORY CARD CLERK.REPAIR TECHNICIAN [address] [place] [address] Rehabilitation Services Manager Internal Medicine 04/18/24 Clinical Transformation Specialist Relationship Specialty Start Date End Date Sheri Hutchins MD [address] [place] [address] PCP - General 03/01/02 Marianna Finnegan, HISTORY CARD CLERK.PEDIATRIC CLINICAL NURSE SPECIALIST [address] [place] [address] Rehabilitation Services Manager Internal Medicine 04/18/24 Jack Lawler HISTORY CARD CLERK.REPAIR TECHNICIAN [address] [place] [address] Rehabilitation Services Manager Internal Medicine 04/18/24 Clinical Transformation Specialist Relationship Specialty Start Date End Date Sheri Hutchins MD [address] [facility] [place] [address] PCP - General 03/01/02 Marianna Finnegan, HISTORY CARD CLERK.PEDIATRIC CLINICAL NURSE SPECIALIST [address] [facility] [place] [address] Rehabilitation Services Manager Internal Medicine 04/18/24 Jack Lawler HISTORY CARD CLERK.REPAIR TECHNICIAN [address] [facility] [place] [address] Rehabilitation Services Manager Internal Medicine 04/18/24 Clinical Transformation Specialist Relationship Specialty Start Date End Date Sheri Hutchins MD [address] [place] [address] PCP - General 03/01/02 Marianna Finnegan, HISTORY CARD CLERK.PEDIATRIC CLINICAL NURSE SPECIALIST [address] [facility] [place] [address] Rehabilitation Services Manager Internal Medicine 04/18/24 Jack Lawler HISTORY CARD CLERK.REPAIR TECHNICIAN [address] [facility] [place] [address] Rehabilitation Services Manager Internal Medicine 04/18/24 Clinical Transformation Specialist Relationship Specialty Start Date End Date Sheri Hutchins MD [address] [facility] [place] [address] PCP - General 03/01/02 Marianna Finnegan, HISTORY CARD CLERK.PEDIATRIC CLINICAL NURSE SPECIALIST [address] [facility] [place] [address] Rehabilitation Services Manager Internal Medicine 04/18/24 Jack Lawler HISTORY CARD CLERK.REPAIR TECHNICIAN [address] [place] [address] Rehabilitation Services Manager Internal Medicine 04/18/24 Clinical Transformation Specialist Relationship Specialty Start Date End Date Sheri Hutchins MD [address] [place] [address] PCP - General 03/01/02 Marianna Finnegan, HISTORY CARD CLERK.PEDIATRIC CLINICAL NURSE SPECIALIST [address] [place] [address] Rehabilitation Services Manager Internal Medicine 04/18/24 Jack Lawler HISTORY CARD CLERK.REPAIR TECHNICIAN [address] [place] [address] [facility] Internal Medicine 04/18/24 Clinical Transformation Specialist Relationship Specialty Start Date End Date Sheri Hutchins MD [address] [place] [address] PCP - General 03/01/02 Marianna Finnegan, HISTORY CARD CLERK.PEDIATRIC CLINICAL NURSE SPECIALIST [address] [place] [address] Rehabilitation Services Manager Internal Medicine 04/18/24 Jack Lawler HISTORY CARD CLERK.REPAIR TECHNICIAN [address] [place] [address] [facility] Internal Medicine 04/18/24 Clinical Transformation Specialist Relationship Specialty Start Date End Date Sheri Hutchins MD [address] [place] [address] PCP - General 03/01/02 Marianna Finngean, HISTORY CARD CLERK.PEDIATRIC CLINICAL NURSE SPECIALIST [address] [place] [address] [facility] Internal Medicine 04/18/24 Jack Lwaler HISTORY CARD CLERK.REPAIR TECHNICIAN [address] [place], [place] [address] [facility] Internal Medicine 04/18/24 Clinical Transformation Specialist Relationship Specialty Start Date End Date Sheri Hutchins MD [address] [facility] [address] PCP - General 03/01/02 Marianna Finnegan, HISTORY CARD CLERK.PEDIATRIC CLINICAL NURSE SPECIALIST [address] [facility] [address] [facility] Internal Medicine 04/18/24 Jack Lawler HISTORY CARD CLERK.REPAIR TECHNICIAN [address] [facility] [place] [address] [facility] Internal Medicine 04/18/24 Clinical Transformation Specialist Relationship Specialty Start Date End Date Sheri Hutchins MD [address] [facility] [address] PCP - General 03/01/02 Marianna Finnegan, HISTORY CARD CLERK.PEDIATRIC CLINICAL NURSE SPECIALIST [address] [place] [address] [facility] Internal Medicine 04/18/24 Jack Lawler HISTORY CARD CLERK.REPAIR TECHNICIAN [address] [facility] [address] [facility] Internal Medicine 08/02/24 Team Status: Active Member Role Status Dates Dr. Sheri Hutchins MD Primary Care Provider Active Team Status: Inactive Member Role Status Dates Dr. Sheri Hutchins MD Primary Care Provider Active Start: July 07, 2024 End: July 07, 2024 Dr. Sheri Hutchins MD Referring Provider Active Start: July 07, 2024 End: July 07, 2024 Chelo Beckman FREIGHT RATE CLERK, FREIGHT RATE CLERK-C Attending Provider Active Start: July 07, 2024 End: July 07, 2024 Team Status: Inactive Member Role Status Dates Dr. Sheri Hutchins MD Primary Care Provider Active Start: July 29, 2024 End: July 29, 2024 Dr. Sheri Hutchins MD Referring Provider Active Start: July 29, 2024 End: July 29, 2024 MILA Adams Attending Provider Active Star t: July 29, 2024 End: July 29, 2024 Team Status: Active Member Role Status Dates Dr. Sheri Hutchins MD Primary Care Provider Active Start: September 22, 2024 Dr. Abhi Ellison MD Attending Provider Active S tart: September 22, 2024 Dr. Abhi Ellison MD Referring Provider Active S tart: September 22, 2024 Clinical Transformation Specialist Relationship Specialty Start Date End Date Sheri Hutchins MD [address] [place] [address] PCP - General 03/01/02 Marianna Finnegan HISTORY CARD CLERK.PEDIATRIC CLINICAL NURSE SPECIALIST [address] [place] [address] Rehabilitation Services Manager Internal Medicine 04/18/24 Jack Lawler HISTORY CARD CLERK.REPAIR TECHNICIAN [address] [place] [address] [facility] Internal Medicine 08/02/24 Clinical Transformation Specialist Relationship Specialty Start Date End Date Sheri Hutchins MD [address] [place] [address] PCP - General 03/01/02 Jack Lawler HISTORY CARD CLERK.REPAIR TECHNICIAN [address] [place] [address] [facility] Internal Medicine 08/02/24 KainMarianna APRN.PEDIATRIC CLINICAL NURSE SPECIALIST [address] [place] [address] [facility] Internal Medicine 09/28/24 Goals (unrecognized section and content) Goals may be documented in a n alternate section FOR RECORDS PERTAINING TO PATIENTS WHO ARE OR HAVE BEEN ENROLLED IN A CHEMICAL DEPENDENCY/SUBSTANCEABUSE PROGRAM, SOME INFORMATION MAY BE OMITTED. This clinical summary was aggregated from multiple sources. Caution should be exercised in using it in the provision of clinical care. This summary normalizes information from multiple sources, and as a consequence, information in this document may materially change the coding, format and clinical context of patient data. In addition, data may be omitted in some cases. CLINICAL DECISIONS SHOULD BE BASED ON THE PRIMARY CLINICAL RECORDS. [facility] [facility]. provides no warranty or guarantee of the accuracy or completeness of information in this document.
[2024-12-24] MEDS: 0.9% Normal Saline (500mL Bag) 500 ML 999 ML IV (19:08)
[2024-12-24 19:13] LABS: Hematocrit 39.9 % (37-47); Hemoglobin 13.1 g/dL (12.0-15.0); Immature Granulocytes Count 0.030 X10^3/uL (0.0-0.0); Mean Corp Hgb Conc 32.8 g/dL (32-36); Mean Corpuscular Volume 92.4 fL (81-99); Mean Platelet Vol. 9.6 fl (6.2-12.0); NRBC Flagged by Analyzer 0 % (0-5); Platelet Count 316 K/mm3 (150-450); RBC Distribution Width CV 12.0 % (11.6-14.6); RBC Distribution Width SD 41.0 fl (35.1-43.9); Red Blood Count 4.32 M/mm3 (4.2-5.4); White Blood Count 9.6 K/mm3 (4.4-11.0)
--- NOTE | 2024-12-24 19:15 | CT_ITS ---
PROCEDURE: BRAIN/HEAD WITHOUT CONTRAST 12/24/2024 REASON FOR EXAM: HEAD TRAUMA TECHNIQUE: BRAIN/HEAD WITHOUT CONTRAST Coronal and Sagittal reconstruction series were provided. One or more dose reduction techniques were used (e.g., Automated exposure control, adjustment of the mA and/or kV according to patient size, use of iterative reconstruction technique. RADIATION DOSE SUMMARY: CTDlvol: 66 mGy DLP: 1352 mGycm FINDINGS: There is no intracranial mass. There is no intracranial hemorrhage. The coelho- white differentiation is maintained. There is no hydrocephalus. The sinuses are clear. CT/Brain/Head without Contrast IMPRESSION: No acute abnormality Reading Location: [facility]
--- NOTE | 2024-12-24 19:15 | CT_ITS ---
PROCEDURE: SPINE CERVICAL WITHOUT CONTRAS 12/24/2024 REASON FOR EXAM: TRAUMA, PAIN TECHNIQUE: SPINE CERVICAL WITHOUT CONTRAS Coronal and Sagittal reconstruction series were provided. One or more dose reduction techniques were used (e.g., Automated exposure control, adjustment of the mA and/or kV according to patient size, use of iterative reconstruction technique. RADIATION DOSE SUMMARY: CTDlvol: 66 mGy DLP: 1352 mGycm FINDINGS: Normal odontoid process. No loss of vertebral body height. No destructive osseous changes. No disruption of the pedicles or lamina. No soft tissue masses. Normal cervical alignment and vertebral body height. CT/Spine Cervical without Contras IMPRESSION: No acute abnormality Reading Location: [facility]
--- NOTE | 2024-12-24 19:20 | RAD_ITS ---
PROCEDURE: CHEST 1 VIEW (PORTABLE) 12/24/2024 REASON FOR EXAM: SYNCOPE TECHNIQUE: Frontal view of the chest. COMPARISON: 02/07/2024 FINDINGS: Lungs/Pleura: Clear. No pneumothorax or pleural effusion. Heart/Mediastinum: Within normal limits. Bones/Soft tissues: Bilateral reverse shoulder arthroplasties. RAD/Chest 1 View (Portable) IMPRESSION: No acute cardiopulmonary disease. Reading Location: [id number]
[2024-12-24 19:28] LABS: Anion Gap 11 (5-15); BUN 18 mg/dL (4-19); BUN/Creat Ratio 17.9 RATIO (10-20); Calcium,Total 9.4 mg/dL (7.6-11.0); Carbon Dioxide 28.9 mmol/L (21.0-32.0); Chloride 99 mmol/L (98-108); Estimated Creatinine Clearance 56.13 ml/min (50-250); Glucose 111 mg/dL (70-99); Potassium 4.3 mmol/L (3.3-5.1); Troponin T High Sensitivity 15 ng/L (<=14)
--- NOTE | 2024-12-24 20:01 | EX.ED.DYSGE1 ---
HPI History of Present Illness Chief Complaint: Fall Informant: patient Narrative Narrative: Patient is a 69-year-old female with history of ventricular tachycardia, DVT (on Eliquis) and coronary artery disease as well as heart failure with reduced ejection fraction presenting for a syncopal episode with subsequent head injury. Patient states 2 days ago she bent over to turn the light off and she felt dizzy. She describes her dizziness as feeling like she is going to pass out. She felt fine throughout the day. Yesterday show she was very tired and slept all day in the chair and then slept through the night after going to bed at 11 PM. Today she was in the kitchen talking to her cousin and spouse when she suddenly felt lightheaded, things went black and then she passed out. She hit her head on the counter and then before when she fell. She is complaining of headache and pain at the back of her head where she hit her head. She denies any vision changes, chest pain, palpitations, nausea, vomiting, numbness or tingling. Denies any sensation of vertigo/room spinning. She notes that she has not been eating much lately. Denies any change with her urination. Denies any prior history of syncope. No other complaints or concerns at this time. Denies any black or blood in her stool [facility] Medical History DVT (deep venous thrombosis) Hematuria Trigger finger of both hands Bilateral carpal tunnel syndrome Diabetes type 2, controlled Arthritis Hypertension Home Medications ?Medication ?Instructions ?Recorded ?Last Taken ?Type atenolol 50 mg tablet 50 mg PO DAILY 04/18/14 01/02/16 07:15 History calcium 600 mg-D3 800 unit-mag 40 1 ea PO DAILY 04/18/14 Unknown History ui-asnq-ylva-zuly-boron chew tablet (Caltrate 600-D Plus Minerals) lisinopril 5 mg tablet 20 mg PO DAILY 04/18/14 01/02/16 07:15 History cephalexin 250 mg capsule (Keflex) 250 mg PO DAILY 12/17/15 Unknown History cranberry extract 200 mg capsule 150 mg PO DAILY 12/17/15 Unknown History multivitamin with folic acid 400 1 tab PO DAILY 12/17/15 Unknown History mcg tablet (Thera) pantoprazole 40 mg tablet,delayed 40 mg PO DAILY 12/17/15 01/02/16 07:15 History release carvedilol 12.5 mg tablet 12.5 mg PO BID 02/23/24 Unknown History metformin 500 mg tablet,extended 500 mg PO BID 02/23/24 Unknown History release 24 hr morphine 15 mg tablet,extended 15 mg PO Q12.TCU 02/23/24 Unknown History release oxycodone 10 mg tablet 10 mg PO BID PRN PRN pain 02/23/24 Unknown History rosuvastatin 5 mg tablet (Crestor) 5 mg PO QHS cholestrol 02/23/24 Unknown History venlafaxine 75 mg capsule,extended 75 mg PO BID 02/23/24 Unknown History release 24 hr (Effexor XR) aspirin 81 mg chewable tablet 162 mg PO QDAY 03/15/24 Unknown History liver supplement 1 cap PO DAILY 03/15/24 Unknown History apixaban 5 mg tablet (Eliquis) 5 mg PO BID 07/07/24 Unknown History meclizine 25 mg tablet 25 mg PO 4X/DAY PRN PRN Dizziness 12/24/24 Unknown Rx #20 tabs Allergy/AdvReac Type Severity Reaction Status Date / Time codeine Allergy Other Verified 12/24/24 17:59 topiramate (From Topamax) Allergy Nausea Verified 12/24/24 17:59 amoxicillin (Amoxicillin) AdvReac Nausea Verified 12/24/24 17:59 etodolac (From Lodine) AdvReac Diarrhea Verified 12/24/24 17:59 fluticasone propionate (From AdvReac headache Verified 12/24/24 17:59 Flovent Diskus) lansoprazole (From Prevacid) AdvReac Unknown Verified 12/24/24 17:59 lorazepam (From Ativan) AdvReac Unknown Verified 12/24/24 17:59 lubiprostone AdvReac Nausea Verified 09/22/24 15:14 misoprostol (From Cytotec) AdvReac Diarrhea Verified 12/24/24 17:59 nitrofurantoin (From AdvReac Nausea Verified 12/24/24 17:59 Macrobid) nitrofurantoin AdvReac Nausea Verified 12/24/24 17:59 macrocrystalline (From Macrobid) Family History Grandmother Myocardial infarction Grandfather Aneurysm Mother Kidney failure Uncle Myocardial infarction Surgical History S/P IVC filter History of arthroplasty of finger of left hand History of knee replacement History of back surgery H/O: hysterectomy History of hip replacement H/O shoulder replacement Social History household members: spouse Smoking Status: Former smoker Tobacco: How many years used: 30 alcohol intake: current alcohol intake frequency: holidays/special occasions only substance use type: does not use ROS ROS ED Constitutional Constitutional ED: Reports other Details: Syncopal episode ; Denies chills or fever(s) Eyes Eyes: Denies blurry vision or change in vision Cardiovascular Cardiovascular: Denies chest pain, palpitations or racing heartbeat Respiratory/Chest Respiratory/Chest: Denies cough or dyspnea Gastrointestinal Gastrointestinal: Denies abdominal pain, nausea or vomiting Genitourinary Genitourinary ED: Denies dysuria, hematuria or urinary frequency Musculoskeletal Musculoskeletal: Denies arthralgias or myalgias Integumentary Denies rash Neurologic Neurologic: Reports headache(s) and other Details: Lightheaded ; Denies paresthesias or weakness Hematologic/Lymphatic Hematologic/Lymphatic: Reports easy bleeding and easy bruising EXAM Physical Exam Const Vital Signs: 12/24/24 18:01 12/24/24 18:39 12/24/24 18:58 Temperature 98.1 F Temperature Source Oral Pulse Rate 75 73 Respiratory Rate 16 Respiratory Effort Normal Non-Labored Respiratory Depth Normal Respiratory Pattern Normal Blood Pressure 116/81 H 125/67 H Blood Pressure [Lying] Blood Pressure [Sitting (for 1 minute prior to obtaining)] Blood Pressure [Standing (for 1 minute prior to obtaining)] Blood Pressure Mean 92 86 Blood Pressure Mean [Lying] Blood Pressure Mean [Sitting (for 1 minute prior to obtaining)] Blood Pressure Mean [Standing (for 1 minute prior to obtaining)] Pulse Ox 100 99 100 Oxygen Delivery Method Room Air Room Air 12/24/24 19:02 12/24/24 20:00 12/24/24 20:14 Temperature Temperature Source Pulse Rate 73 70 Respiratory Rate 19 H Respiratory Effort Respiratory Depth Respiratory Pattern Blood Pressure 133/72 H 125/66 H Blood Pressure [Lying] 114/68 Blood Pressure [Sitting (for 1 minute prior to obtaining)] 112/79 Blood Pressure [Standing (for 1 minute prior to obtaining)] 125/67 H Blood Pressure Mean 92 85 Blood Pressure Mean [Lying] 83 Blood Pressure Mean [Sitting (for 1 minute prior to obtaining)] 90 Blood Pressure Mean [Standing (for 1 minute prior to obtaining)] 86 Pulse Ox 96 Oxygen Delivery Method 12/24/24 21:00 12/24/24 22:00 12/24/24 23:00 Temperature 98.8 F Temperature Source Oral Pulse Rate 64 68 70 Respiratory Rate 12 12 17 Respiratory Effort Respiratory Depth Respiratory Pattern Blood Pressure 136/66 H 131/62 H 128/70 H Blood Pressure [Lying] Blood Pressure [Sitting (for 1 minute prior to obtaining)] Blood Pressure [Standing (for 1 minute prior to obtaining)] Blood Pressure Mean 89 85 89 Blood Pressure Mean [Lying] Blood Pressure Mean [Sitting (for 1 minute prior to obtaining)] Blood Pressure Mean [Standing (for 1 minute prior to obtaining)] Pulse Ox 100 98 100 Oxygen Delivery Method Room Air Room Air Room Air 12/25/24 00:04 Temperature 98.5 F Temperature Source Pulse Rate 70 Respiratory Rate 17 Respiratory Effort Respiratory Depth Respiratory Pattern Blood Pressure 128/70 H Blood Pressure [Lying] Blood Pressure [Sitting (for 1 minute prior to obtaining)] Blood Pressure [Standing (for 1 minute prior to obtaining)] Blood Pressure Mean 89 Blood Pressure Mean [Lying] Blood Pressure Mean [Sitting (for 1 minute prior to obtaining)] Blood Pressure Mean [Standing (for 1 minute prior to obtaining)] Pulse Ox 100 Oxygen Delivery Method Positive well nourished and well developed General Appearance ED: well developed and NAD HEENT Reports TM's clear and moist mucous membranes HEENT Narrative: No signs of basilar skull fracture. Very small abrasion over the forehead above the left eyebrow. Cephalhematoma present of the right posterior scalp with no overlying abrasion or laceration trauma Tympanic Membrane ED: Yes TM's clear Eyes PERRL and EOMs intact bilaterally Neck supple Chest Wall inspection of chest normal and palpation of chest normal Resp normal respiratory effort and clear to auscultation bilaterally Cardio regular rate and regular rhythm GI normal to inspection, nondistended, normoactive bowel sounds and non-tender Neuro oriented x3 and CN's II-XII intact bilaterally Sensorium / Orientation: alert Motor Exam: Negative for general weakness Psych mental status grossly normal Skin no wounds Trauma: abrasion MDM MDM MDM Narrative Medical decision making narrative: Patient evaluated for a syncopal episode with head injury. Differential includes arrhythmia, intracranial hemorrhage, skull fracture, cervical spine fracture, symptomatic anemia, infection, peripheral vertigo, hypotension, orthostatic hypotension, dehydration and PROSPER. Workup including CT of the brain, cervical spine, chest x-ray, EKG, CBC, BMP, delta high-sensitivity troponin and urinalysis is obtained. Patient is given a 500 cc fluid bolus. She is given Tylenol for her headache. CT of the brain and cervical spine did not show any acute traumatic process or intracranial hemorrhage. 1 view chest x-ray does not show any acute process reviewed by myself as well as radiology. CBC and BMP grossly unremarkable. Her high-sensitivity troponin is stable at 15 and then on repeat 15. Urinalysis is consistent with contamination but not consistent with urinary tract infection with only 0-5 white blood cells and 5-10 squamous epithelial cells. After fluids patient states her lightheadedness feels better when she goes to sit up but she notes that she is still now dizzy when she looks to the left. [place]-Hallpike maneuver performed and positive on the left with nystagmus or reproduction of symptoms. Patient given a dose of meclizine with's improvement of her symptoms. She is ambulated with a steady gait. Is comfortable with discharge home. I am not sure the cause of her syncopal episode and I did explain that to the patient. Is possible it could be related to her medications or even dehydration. She will need to follow-up outpatient for that. She will be given referral for ENT and started on meclizine as needed for vertigo. She has normal finger-nose no truncal ataxia so I have a low suspicion for cerebellar stroke or need for further neuroimaging at this time. History & Record Review Discussion w/independent historian: Patient and Family Lab Data Attestation: I reviewed the patient's lab results. Labs: Laboratory Results - last 24 hr 12/24/24 12/24/24 12/24/24 18:54 20:28 20:48 WBC 9.6 RBC 4.32 Hgb 13.1 Hct 39.9 MCV 92.4 MCH 30.3 MCHC 32.8 RDW Std Deviation 41.0 RDW Coeff of Radu 12.0 Plt Count 316 MPV 9.6 Immature Gran % (Auto) 0.300 Neut % (Auto) 72.7 H Lymph % (Auto) 17.4 L [place] % (Auto) 7.5 Eos % (Auto) 1.5 Baso % (Auto) 0.6 Absolute Neuts (auto) 7.0 Absolute Lymphs (auto) 1.68 Nucleated RBC % 0 Sodium 139 Potassium 4.3 Chloride 99 Carbon Dioxide 28.9 Anion Gap 11 BUN 18 Creatinine 0.99 Estim Creat Clear Calc 56.13 Est GFR (MDRD) Non-Af 61 BUN/Creatinine Ratio 17.9 Glucose 111 H Calcium 9.4 Troponin T High Sens 15 H Troponin T Hi Sens 2 Hr 15 H Urine Color Yellow Urine Clarity Sl. Cloudy Urine pH 6.5 Ur Specific [place] 1.010 Urine Protein 15 H Urine Glucose (UA) Normal Urine Ketones Negative Urine Occult Blood Negative Urine Nitrite Negative Urine Bilirubin Negative Urine Urobilinogen Normal Ur Leukocyte Esterase 25 H Urine RBC 0 SEEN Urine WBC 0-5 SEEN Ur Squamous Epith Cells 5-10 SEEN Urine Bacteria 2+ Urine Mucus 0 SEEN POC Glucose 12/24/24 22:58 WBC RBC Hgb Hct MCV MCH MCHC RDW Std Deviation RDW Coeff of Radu Plt Count MPV Immature Gran % (Auto) Neut % (Auto) Lymph % (Auto) [place] % (Auto) Eos % (Auto) Baso % (Auto) Absolute Neuts (auto) Absolute Lymphs (auto) Nucleated RBC % Sodium Potassium Chloride Carbon Dioxide Anion Gap BUN Creatinine Estim Creat Clear Calc Est GFR (MDRD) Non-Af BUN/Creatinine Ratio Glucose Calcium Troponin T High Sens Troponin T Hi Sens 2 Hr Urine Color Urine Clarity Urine pH Ur Specific [place] Urine Protein Urine Glucose (UA) Urine Ketones Urine Occult Blood Urine Nitrite Urine Bilirubin Urine Urobilinogen Ur Leukocyte Esterase Urine RBC Urine WBC Ur Squamous Epith Cells Urine Bacteria Urine Mucus POC Glucose 92 Radiography Chest X-Ray - ED: 1 View, Read by ED Physician, Read by Radiologist and No Acute Disease Diagnostic Testing: Clinical Impression(s) from Imaging Studies Brain CT 12/24/24 19:15 IMPRESSION: No acute abnormality [facility] Cervical Spine CT 12/24/24 19:15 IMPRESSION: No acute abnormality Reading Location: [facility] Chest X-Ray 12/24/24 19:20 IMPRESSION: No acute cardiopulmonary disease. Reading Location: [id number] Rhythm Strip Rhythm Strip: Sinus Rhythm Rate: 75 Ectopy: None EKG Initial EKG: Attestation: I personally reviewed and interpreted this EKG as follows: Interpretation: Sinus Rhythm Comments: Normal sinus rhythm at a rate of 75 bpm Normal axis Normal intervals Normal ST segments Discharge Plan Triage Chief Complaint: Fall ED Provider: Dalila Spear Dx/Rx/DC Orders Clinical Impression: Episode of syncope, Anticoagulant long-term use, Closed head injury, Benign paroxysmal vertigo of left ear Instructions: ED BPV Vertigo, ED Fainting, Uncertain Cause Prescriptions: New meclizine 25 mg tablet 25 mg PO 4X/DAY PRN PRN (Reason: Dizziness) Qty: 20 0RF No Action aspirin 81 mg tablet,chewable 162 mg PO QDAY liver supplement 1 cap PO DAILY Eliquis 5 mg tablet 5 mg PO BID lisinopril 5 MG tablet 20 mg PO DAILY atenolol 50 MG tablet 50 mg PO DAILY Caltrate 600-D Plus Minerals 1 EACH tablet,chewable 1 ea PO DAILY cephalexin [Keflex] 250 MG capsule 250 mg PO DAILY pantoprazole 40 MG tablet 40 mg PO DAILY cranberry extract 200 MG capsule 150 mg PO DAILY multivitamin with folic acid [Thera] 1 TABLET tablet 1 tab PO DAILY rosuvastatin [Crestor] 5 mg tablet 5 mg PO QHS venlafaxine [Effexor XR] 75 mg capsule,extended release 24hr 75 mg PO BID carvedilol 12.5 mg tablet 12.5 mg PO BID metformin 500 mg tablet extended release 24 hr 500 mg PO BID morphine 15 mg tablet extended release 15 mg PO Q12.TCU oxycodone 10 mg tablet 10 mg PO BID PRN PRN (Reason: pain) Primary Care Provider: Smiley Collins Referrals: Beni Galan MD [Med Staff - Active Staff] - Smiley Collins MD [Primary Care Provider] - Activity Restrictions/Additional Instructions: The cause of your passed out is not clear. Make sure you are drinking plenty of fluids. Follow-up with your family doctor for this. You do also seem to have vertigo caused by a disturbance in your left ear based on your physical exam today. You have been prescribed meclizine for this. Take it as needed for symptoms. If your vertigo continues please follow-up with ear nose and throat. He may given referral today. If you feel unsafe at home or have worsening symptoms or further episodes of passing out please return to the emergency room. Print Language: Yemeni Disposition Disposition: Home, Self Care Discharge Date/Time: 12/25/24 00:30
[2024-12-24 20:35] LABS: Mucous, Urine 0 SEEN /hpf (<or=2+); Red Blood Cells-Urine 0 SEEN /hpf (0-5)
[2024-12-24 20:37] LABS: Color, Urine Yellow (Yellow); Glucose, Dipstick Normal (Normal); Ketone-Dipstick Negative (Negative); Leukocyte Esterase-Dipstick 25 /ul (Negative); Nitrite-Dipstick Negative (Negative); Occult Blood-Urine Negative /ul (Negative); Protein-Dipstick 15 mg/dl (Negative); Specific Gravity, Urine 1.010 (1.002-1.030); Urine Bilirubin Dipstick Negative (Negative)
[2024-12-24 20:44] LABS: Squamous Epithelial Cells - UA 5-10 SEEN /hpf (5-10)
[2024-12-24 21:16] LABS: Troponin T High Sens 2 HR 15 ng/L (<=14)
[2024-12-25 00:04] VITALS: BP 128/70; PULSE 70; RESP 17; TEMP 36.9; O2SAT 100
== END 2024-12-25 00:30 | disposition home or self-care (01) ==
PROVIDERS: Emergency Provider Emergency Medicine; PCP Internal Medicine; Visit Provider Emergency Medicine
DX: S00.03XA Contusion of scalp, initial encounter (principal); I50.22 Chronic systolic (congestive) heart failure; I11.0 Hypertensive heart disease with heart failure; E11.9 Type 2 diabetes mellitus without complications; S00.81XA Abrasion of other part of head, initial encounter; W18.39XA Other fall on same level, initial encounter; R55 Syncope and collapse; H81.12 Benign paroxysmal vertigo, left ear; Z79.01 Long term (current) use of anticoagulants; Z79.82 Long term (current) use of aspirin; Z79.84 Long term (current) use of oral hypoglycemic drugs; Z79.899 Other long term (current) drug therapy; Z86.718 Personal history of other venous thrombosis and embolism; Z87.891 Personal history of nicotine dependence
CPT/HCPCS: 70450; 71045; 72125; 80048; 81001; 82962; 84484; 85025; 93005; 96360; 99285; A4216

== ENCOUNTER 2025-01-11 16:30 | Outpatient (RCR) | payer MEDICARE, BC, OTHER, SELFPAY ==
--- NOTE | 2025-01-04 16:46 | HP.PTEVAL_ITS ---
Patient's Visit Information Visit Information Visit Information: URIEL CHOUDHARY is a 69 year old F referred to Physical Therapy by Dr. Smiley Collins MD with a diagnosis of vertigo. Date of Evaluation: 01/04/25 Physical Therapist: CARLA Acevedo Visit Plan Frequency: 1x/Week Duration: 6 Weeks Plan: 1-6 visits for testing and treatment of R BPPV Subjective Subjective: Pt fell on 12/31/24. She was standing at the counter and fell BW and hit her head. She was dehydrated and has Low blood sugar. She is Type I DM. Catscan came out ok. She does not normally use a cane. Her family wants her to use a walker. She did PT due to falling and her balance was better and then this came out of no where. Stairs: they have no steps and she does not do them at home. She uses the chair lift in her house. She has had 2 hips, 2 knees and 2 shoulder replacements. She has dizziness if she looks to the Right. If she sits up or stand up she will get dizzy. She can not bend over or she will get dizzy. The dizziness will last seconds and sometimes she will fall back into the chair. Her BP has been kind of low. Rolling over in bed does not make her dizzy. Pain Back, knee pain: Pain Intensity (Out of 10): 5 Objective Objective: + torsional nystagmus with R hallpike that lasted approx 15 seconds. Treated with R Eply from testing position. Re-tested R Hallpike and it was negative for dizziness and negative for nystag mus. Instructed pt to avoid a lot of prolonged looking down for the evening. Pt had no dizziness when standing up after above. Balance/Special Test Scores Dizziness Score: 50 Goals Goal 1:: I HEP Goal Time Frame: 2-4 Weeks Goal 2:: Abolish dizziness with standing up or sitting up Goal Time Frame: 2-4 Weeks Goal 3:: - R Hallpike Goal Time Frame: 2-4 Weeks Rehabilitation Potential Rehabilitation Potential: Good Anticipated Interventions Patient/Client Instruction: Educate patient on: Condition and Plan of Care For the Purpose of:: To improve muscle performance and motor function, To improve ability to perform ADL's, To increase tolerance to activity/c ondition/position, To improve performance and independence with ADL's, To decrease level of supervision to perform tasks, To improve ability of physical actions for home/community/work/leisure, To improve gait and locomotor functions, To improve balance and To improve safety with gait Therapeutic Exercise to Include: Strength training, Balance training and Gait and locomotor training For the Purpose of:: To increase tolerance to activity/condition/position, To improve performance and independence with ADL's, To decrease level of supervision to perform tasks, To improve ability of physical actions for home/community/work/leisure, To improve gait and locomotor functions, To improve endurance, To improve balance and To improve safety with gait Functional Training to Include: Gait training For the Purpose of:: To improve gait and locomotor functions and To improve safety with gait Manual Therapy Techniques to Include: Other For the Purpose of:: To improve gait and locomotor functions, To improve balance and To improve safety with gait Text: Thank you for the opportunity to evaluate your patient. For Medicare and Medicare HMO plans, please review the plan of care and approve it. It will need to be FAXED BACK to us at [phone] for Medicare purposes. For Medicare only, by signing this I certify the plan of care. Please let me know if there are questions or concerns regarding this plan of care. Physician Signature: Date:
--- NOTE | 2025-01-11 16:55 | HP.PTDCSUM ---
Discharge Summary D/C summary: It has been my pleasure to treat URIEL CHOUDHARY referred by Dr. Smiley Collins MD, with the diagnosis of vertigo for a total of 2 visit(s). Discharge Date: 01/11/25 Please see the following information for a summary of their discharge status. Subjective Subjective: No dizziness since last time. She had a cane last time and does not have it this time. She is planning on doing gym exercises from here on out through [employer]. Pain Back, knee pain: Pain Intensity (Out of 10): 5 Objective Objective/Function: - R Hallpike for dizziness or nystagmus Goals Goal 1:: I HEP Goal 2:: Abolish dizziness with standing up or sitting up Goal 3:: - R Hallpike Plan Plan: 1-6 visits for testing and treatment of R BPPV D/C Information Discharge Comments: DC PT d/c sentence: If there are questions or concerns regarding this patient's physical therapy, please feel free to call me at [phone]. Thank you for the referral of this patient. Sincerely, Nancy Pulido, MPT Balance/Gait/Functional tests Balance/Special Test Scores Dizziness Score: 16
== END 2025-01-11 19:00 | disposition home or self-care (01) ==
LOC: PT 16:30
PROVIDERS: PCP Internal Medicine; Referring Provider Internal Medicine; Visit Provider Internal Medicine
DX: R42 Dizziness and giddiness (principal)
CPT/HCPCS: 97161; 97530

== ENCOUNTER → 2025-03-16 | Outpatient (CLI) | payer MEDICARE, BC, OTHER, SELFPAY ==
--- NOTE | 2025-03-16 15:37 | VDLE_ITS ---
Reason For Study Reason For Study: Elevated D Dimer RIGHT LEFT GSV is normal. GSV is normal. CFV is compressible, spontaneous, phasic, competent CFV is compressible, spontaneous, phasic, competent, and demonstrates normal augmentation. and demonstrates normal augmentation. FV is compressible, spontaneous, phasic, competent and FV is compressible, spontaneous, phasic, competent demonstrates normal augmentation. and demonstrates normal augmentation. POP V is compressible, spontaneous, phasic, competent POP V is compressible, spontaneous, phasic, and demonstrates normal augmentation. competent and demonstrates normal augmentation. T/P Trunk is compressible. T/P Trunk is PARTIALLY COMPRESSIBLE with Web-Like PTV is compressible. intraluminal echoes. Finding is consistent with RT PerV is compressible. CHRONIC DVT. Procedure PTV is compressible. This is a venous duplex using B-mode, color flow and Peroneal Vein is PARTIALLY COMPRESSIBLE with Web- spectral Doppler. Like intraluminal echoes. Finding is consistent with Exam performed in department. CHRONIC DVT. The exam was diagnostic. A preliminary report was called and/or faxed to Dr. Ellison / [facility] Oncology/Hematology. VL/Venous Duplex US - Zach Extrem Interpretation Summary Chronic venous changes are noted in the left tibio-peroneal trunk and peroneal vein, which are partially compressible and demonstrate intraluminal echogenicity. The remainder of the left lower extr emity deep venous system is patent and compressible. Deep veins of the right lower extremity are patent and compressib le segmentally. There is no evidence of right lower extremity deep vein thrombosis. Valvular competence appears intact within the proximal deep venous systems bilaterally. The great saphenous veins appear bilaterally patent and compressib le segmentally. Ordering Physician: Abhi Ellison Referring Physician: Smiley Collins Performed By: Alan Dale, RVT
== END | disposition home or self-care (01) ==
PROVIDERS: PCP Internal Medicine; Referring Provider Internal Medicine Medical Oncology; Visit Provider Internal Medicine Medical Oncology
DX: R79.1 Abnormal coagulation profile (principal); Z86.718 Personal history of other venous thrombosis and embolism
CPT/HCPCS: 93970